=== PATIENT | male | born 1955 | race Caucasian/White ===

== ENCOUNTER → 2016-11-24 | Day surgery (SDC) | payer OTHER, BC ==
[2016-11-15 13:18] VITALS: Ht 175.3 cm; Wt 79.5 kg
[~2016-11-24] VITALS: Ht 175.3 cm; Wt 79.5 kg
[~2016-11-24] MED LIST: ACETTAB19 PO; AMIT75TA2 PO; AMLO-110 PO; AMT24 PO; ASPI-391 PO; ASPI15TA PO; ATEN-173 PO; ATOR-24 PO; ATOR-26 PO; ATRIN NAE; AZEL0.056 NAE; BACL10TA PO; BACL1TAB PO; BNT10 PO; BUTA1TAB70 PO; CALC625T PO; CLC100X PO; CLOB1OIN2 TOP; DICY10CA12 PO; DIPH38TA PO; FLM4 PO; FLNIN NAE; GABA-113 PO; GABA1CAP4 PO; GABA1CAP5 PO; HYDR10TA52 PO; HYDR20TA3 PO; HYDR5TAB57 PO; LEVO75TA5 PO; LIDOCAINE HCL 2% 2 ML VIAL (20MG/ML) ONE; MENT5PAD4 EXT; MOME6000 NAE; MORP1TAB12 PO; MULT-845 PO; MULTTAB PO; NALO1TAB2 PO; NF34 TOP; OMEP40CA PO; OMEP40CA41 PO; OXYC-106 PO; PANT40TA PO; PLV75 PO; POLY1POW2 PO; POLY335040 PO; PROM25TA PO; PROM25TA16 PO; PROPOFOL IV EMULSION 10 MG/ML 20 ML VIAL IV ONE; SALI0.6510 NAE; SENN-61 PO; SIME80CH PO; SODIUM CHLORIDE 0.9% 500ML 500 ML IV ONE; TAMS0.4C38 PO; TEST0.05 TOP; TEST5GEL TOP; TIZA4CAP PO; ZNF/4 PO; [UNRECOGNIZED DRUG - CODE] TOP
[2016-11-24 11:01] VITALS: TEMP 36.6
--- NOTE | 2016-11-24 11:03 | Endo History and Physical ---
History & Physical Date of Service: Nov 24, 2016. Chief Complaint: ABD Cramping Diarrhea, Colon Ulcers Referring Physician: Dr Rain History of Present Illness 61 yo CM who presents for Colonoscopy secondary to abdominal cramping, diarrhea and history of colon ulcers. Past Medical History Arthritis, Gastrointestinal Disorder, Reflux, High Cholesterol, Hypertension, Chronic Steroid Use, CVA/TIA Past Surgical History Hx Cardiac Surgery: No Hx Internal Defibrillator: No Hx Pacemaker: No Hx Abdominal Surgery: No Hx Post-Op Nausea and Vomiting: Yes (ONLY WITH CERVICAL SURGERY) Hx Cancer Surgery: No Hx Thoracic Surgery: No Hx Orthopedic: Yes (C3-C4 ACDF (LIMITED ROM), RIGHT ACHILLES TENDON X3) Hx Urinary Tract Surgery: No Family History Polyp Social History Smoking Status: Never Smoker Hx Substance Use: No Hx Alcohol Use: No Allergies Coded Allergies: No Known Allergies (Unverified , 11/24/16) Current Medications Reported Home Medications Medications Dose Route/Sig Max Daily Dose Days Date Category Excedrin Back & Body (Acetaminophen-Aspirin Buffered) 1 Tab Tab 2 Tab PO BID 08/17/16 Reported Neurontin (Gabapentin) 300 Mg Cap 300 Mg PO BID 06/17/16 Reported Norvasc (Amlodipine Besylate) 5 Mg Tab 5 Mg PO QAM 06/17/16 Reported Lipitor (Atorvastatin Calcium) 40 Mg Tab 40 Mg PO HS 06/07/16 Reported Percocet 10MG/325MG (Oxycodone/Acetaminophen) Tab 1 Tab PO Q6 PRN 03/14/16 Reported Elavil (Amitriptyline Hcl) 75 Mg Tab 75 Mg PO HS 03/02/16 Reported Levothyroxine Sodium 75 Mcg Tab 75 Mcg PO QAM 02/21/16 Reported Androgel Pump (Testosterone) 1.62 % Gel 40.5 Mg TOP DAILY 02/21/16 Reported Prilosec (Omeprazole) 40 Mg Capcr 40 Mg PO BID 09/01/15 Reported Mvi With Minerals (Multivitamins/Minerals) Tab 1 Tab PO DAILY 04/11/15 Reported Fibercon (Calcium Polycarbophil) 625 Mg Tab 2 Cap PO DAILY 04/11/15 Reported Excedrin Pm (Diphenhydramine-Acetaminophen) 1 Tab Tab 2 Tabs PO HS 04/11/15 Reported Dicyclomine HCl 10 Mg Cap 1 Tab PO TID PRN 08/02/14 Reported Phenergan (Promethazine HCl) 25 Mg Tab 25 Mg PO Q6H PRN 06/15/14 Reported Cortef (Hydrocortisone) 10 Mg Tab 10 Mg PO QAM 06/15/14 Reported Azelastine HCl 0.15 % Spr 2 Sprays DENNIS TID PRN 06/15/14 Reported Flonase Nasal [place] (Fluticasone Propionate) 120 Sprays/6000 Mcg Inha 2 Sprays DENNIS DAILY 08/05/13 Reported Miralax Powder Packet (Polyethylene) 17 Gm Pack 17 Gm PO PRN 08/05/13 Reported Morphine Sulfate Er (Morphine Sulfate) 30 Mg Tab 30 Mg PO BID 08/05/13 Reported Tenormin (Atenolol) 25 Mg Tab 25 Mg PO BID 07/24/10 Reported Zanaflex (Tizanidine HCl) 4 Mg Cap 8 Mg PO TID 07/24/10 Reported Vital Signs Weight (Kilograms): 79.55 Height (Feet): 5 Height (Inches): 9 Physical Exam General Appearance: WD/WN, no apparent distress Respiratory/Chest: Auscultation: breath sounds normal Cardiovascular: Heart Auscultation: RRR Abdomen: Bowel Sounds: normal Inspection & Palpation: soft, non-distended, no tenderness, guarding & rebound Assessment and Plan Assessment: 61 yo CM who presents for Colonoscopy secondary to abdominal cramping, diarrhea and history of colon ulcers. Plan: Proceed with colonoscopy.
--- NOTE | 2016-11-24 11:57 | GI REPORT ---
Procedure Date: 11/24/2016 11:05 AM Procedure: Colonoscopy Indications: Generalized abdominal pain, Chronic diarrhea Medicines: Monitored Anesthesia Care Complications: No immediate complications. Estimated Blood Loss: Estimated blood loss: none. Procedure: Pre-Anesthesia Assessment: - Prior to the procedure, a History and Physical was performed, and patient medications and allergies were reviewed. The patient's tolerance of previous anesthesia was also reviewed. The risks and benefits of the procedure and the sedation options and risks were discussed with the patient. All questions were answered, and informed consent was obtained. Prior Anticoagulants: The patient has taken aspirin, last dose was day of procedure. ASA Grade Assessment: IV - A patient with severe systemic disease that is a constant threat to life. After reviewing the risks and benefits, the patient was deemed in satisfactory condition to undergo the procedure. After I obtained informed consent, the scope was passed under direct vision. Throughout the procedure, the patient's blood pressure, pulse, and oxygen saturations were monitored continuously. The scope was introduced through the anus and advanced to the terminal ileum. The patient tolerated the procedure well. The quality of the bowel preparation was fair. The terminal ileum, ileocecal valve, appendiceal orifice, and rectum were photographed. The colonoscopy was performed with moderate difficulty due to significant looping. Successful completion of the procedure was aided by changing the patient to a supine position and using manual pressure. Findings: A tattoo was seen at the hepatic flexure. The tattoo site appeared normal. Several biopsies were obtained with cold forceps for histology in a targeted manner in the sigmoid colon and in the descending colon. Non-bleeding internal hemorrhoids were found during retroflexion. The hemorrhoids were small. Impression: - A tattoo was seen at the hepatic flexure. The tattoo site appeared normal. - Non-bleeding internal hemorrhoids. - Several biopsies were obtained in the sigmoid colon and in the descending colon. Recommendation: - Resume previous diet. - Continue present medications. - Repeat colonoscopy for surveillance based on pathology results. - Return to primary care physician as previously scheduled. Chaitanya Dahl DO 11/24/2016 11:57:16 AM This report has been signed electronically. Note Initiated On: 11/24/2016 11:05 AM I attest to the content of the Intraoperative Record and orders documented therein, exceptions below
--- NOTE | 2016-11-24 11:58 | Discharge Instructions ---
Endoscopy Patient Instructions Date / Procedure(s) Performed Nov 24, 2016. Colonoscopy Allergy Information Coded Allergies: No Known Allergies (Unverified , 11/24/16) Discharge Date / Findings Nov 24, 2016. Internal hemorrhoids Random colon biopsies Medication Instructions OK to resume all medications today as prescribed Reported Home Medications Medications Dose Route/Sig Max Daily Dose Days Date Category Excedrin Back & Body (Acetaminophen-Aspirin Buffered) 1 Tab Tab 2 Tab PO BID 08/17/16 Reported Neurontin (Gabapentin) 300 Mg Cap 300 Mg PO BID 06/17/16 Reported Norvasc (Amlodipine Besylate) 5 Mg Tab 5 Mg PO QAM 06/17/16 Reported Lipitor (Atorvastatin Calcium) 40 Mg Tab 40 Mg PO HS 06/07/16 Reported Percocet 10MG/325MG (Oxycodone/Acetaminophen) Tab 1 Tab PO Q6 PRN 03/14/16 Reported Elavil (Amitriptyline Hcl) 75 Mg Tab 75 Mg PO HS 03/02/16 Reported Levothyroxine Sodium 75 Mcg Tab 75 Mcg PO QAM 02/21/16 Reported Androgel Pump (Testosterone) 1.62 % Gel 40.5 Mg TOP DAILY 02/21/16 Reported Prilosec (Omeprazole) 40 Mg Capcr 40 Mg PO BID 09/01/15 Reported Mvi With Minerals (Multivitamins/Minerals) Tab 1 Tab PO DAILY 04/11/15 Reported Fibercon (Calcium Polycarbophil) 625 Mg Tab 2 Cap PO DAILY 04/11/15 Reported Excedrin Pm (Diphenhydramine-Acetaminophen) 1 Tab Tab 2 Tabs PO HS 04/11/15 Reported Dicyclomine HCl 10 Mg Cap 1 Tab PO TID PRN 08/02/14 Reported Phenergan (Promethazine HCl) 25 Mg Tab 25 Mg PO Q6H PRN 06/15/14 Reported Cortef (Hydrocortisone) 10 Mg Tab 10 Mg PO QAM 06/15/14 Reported Azelastine HCl 0.15 % Spr 2 Sprays DENNIS TID PRN 06/15/14 Reported Flonase Nasal [place] (Fluticasone Propionate) 120 Sprays/6000 Mcg Inha 2 Sprays DENNIS DAILY 08/05/13 Reported Miralax Powder Packet (Polyethylene) 17 Gm Pack 17 Gm PO PRN 08/05/13 Reported Morphine Sulfate Er (Morphine Sulfate) 30 Mg Tab 30 Mg PO BID 08/05/13 Reported Tenormin (Atenolol) 25 Mg Tab 25 Mg PO BID 07/24/10 Reported Zanaflex (Tizanidine HCl) 4 Mg Cap 8 Mg PO TID 07/24/10 Reported Provider Instructions Activity Restrictions - No exercising or heavy lifting for 24 hours. - Do not drink alcohol the day of the procedure. - Do not drive a car or operate machinery until the day after the procedure. - Do not make any important decisions or sign important papers in 24 hours after the procedure. Following Day: - Return to full activity which may include returning to work/school. Diet Start your diet with liquids and light foods (jello, soup, juice, toast). Then eat your usual diet if not nauseated. Treatment For Common After Affects For mild abdominal pain, bloating, or excessive gas: - Rest - Eat lightly - Lie on right side Follow-Up Information Follow-up with Dr Rain as scheduled Anesthesia Information What You Should Know You have had a procedure that required some medicine to reduce anxiety and discomfort. This treatment is called moderate sedation. After receiving the treatment, you may be sleepy, but you will be able to breathe on your own. The effects of the treatment may last for several hours. Follow these instructions along with Activity/Diet recommendations noted above: * Do NOT do anything where dizziness or clumsiness would be dangerous. * Rest quietly at home today, then you can be up and about tomorrow. * Have a responsible person stay with you the rest of today. * You may have had an I.V. today. If so, you may take the dressing off later today. Recommendations Call your doctor if: * Trouble breathing * Continuous vomiting for more than 24 hours * Temperature above 101 degrees * Severe abdominal pain or bloating * Pain not relieved by pain medicine ordered * There is increased drainage or redness from any incision * A large amount of rectal bleeding greater than 2-3 tablespoons. (If you had a polyp/s removed or have hemorrhoids, a small amount of blood - from the rectum is to be expected.) * You have any unanswered questions or concerns. IN THE EVENT OF A SERIOUS EMERGENCY, GO TO THE NEAREST EMERGENCY ROOM Your discharge instructions were prepared by provider Chaitanya Dahl. Patient Instructions Signature Page Roman Dillard Patient (or Guardian) Signature/Date: I have read and understand the instructions given to me by my caregivers. Caregiver/RN/Doctor Signature/Date: The above-named patient and/or guardian has received patient instructions on this date. + Original Patient Signature Page (only) stays with chart. Please make copy for patient.
[2016-11-24 12:18] VITALS: BP 146/71; PULSE 75; O2SAT 100
--- NOTE | 2016-11-24 14:04 | Anesthesiology Progress Note ---
Anesthesia Post Op Note Date & Time Nov 24, 2016 at 14:05 Vital Signs Pain Intensity: 2 Vital Signs Past 12 Hours Date Time Temp Pulse Resp B/P Pulse Ox O2 Delivery O2 Flow Rate FiO2 11/24/16 12:18 75 20 146/71 100 Room Air 11/24/16 12:03 74 20 137/72 100 Room Air 11/24/16 11:48 79 20 139/72 100 Room Air 11/24/16 11:01 36.6 75 20 155/67 99 Room Air Notes Mental Status: alert / awake / arousable, participated in evaluation Pt Amnestic to Procedure: Yes Nausea / Vomiting: adequately controlled Pain: adequately controlled Airway Patency, RR, SpO2: stable & adequate BP & HR: stable & adequate Hydration State: stable & adequate Anesthetic Complications: no major complications apparent
== END | disposition home or self-care (01) ==
LOC: C.GI 10:20
PROVIDERS: ATTEND Internal Medicine
DX: R10.84 Generalized abdominal pain (principal); R19.7 Diarrhea, unspecified; K21.9 Gastro-esophageal reflux disease without esophagitis; E78.00 Pure hypercholesterolemia, unspecified; M19.90 Unspecified osteoarthritis, unspecified site; K64.9 Unspecified hemorrhoids; I10 Essential (primary) hypertension; Z79.52 Long term (current) use of systemic steroids; Z86.73 Personal history of transient ischemic attack (TIA), and cerebral infarction without residual deficits

== ENCOUNTER 2017-01-19 14:59 | Emergency (ER) | payer OTHER, BC ==
[~2017-01-19] VITALS: Ht 175.3 cm; Wt 81.0 kg
[~2017-01-19 14:59] MED LIST changes: -AMIT75TA2 PO; -AMLO-110 PO; -AMT24 PO; -ASPI-391 PO; -ASPI15TA PO; -ATEN-173 PO; -ATOR-24 PO; -ATOR-26 PO; -ATRIN NAE; -AZEL0.056 NAE; -BACL10TA PO; -BACL1TAB PO; -BUTA1TAB70 PO; -CLC100X PO; -CLOB1OIN2 TOP; -DICY10CA12 PO; -DIPH38TA PO; -FLM4 PO; -GABA1CAP4 PO; -GABA1CAP5 PO; -HYDR10TA52 PO; -HYDR20TA3 PO; -HYDR5TAB57 PO; -LEVO75TA5 PO; -LIDOCAINE HCL 2% 2 ML VIAL (20MG/ML) ONE; -MENT5PAD4 EXT; -MOME6000 NAE; -MORP1TAB12 PO; -MULT-845 PO; -MULTTAB PO; -NALO1TAB2 PO; -NF34 TOP; -OMEP40CA41 PO; -OXYC-106 PO; -PANT40TA PO; -PLV75 PO; -POLY1POW2 PO; -PROM25TA16 PO; -PROPOFOL IV EMULSION 10 MG/ML 20 ML VIAL IV ONE; -SALI0.6510 NAE; -SENN-61 PO; -SIME80CH PO; -SODIUM CHLORIDE 0.9% 500ML 500 ML IV ONE; -TAMS0.4C38 PO; -TEST0.05 TOP; -TEST5GEL TOP; -ZNF/4 PO; -[UNRECOGNIZED DRUG - CODE] TOP
[2017-01-19 15:02] VITALS: TEMP 36.6; Ht 175.3 cm; Wt 81.0 kg
[2017-01-19] MEDS ORDERED: SODIUM CHLORIDE 0.9% 1000ML 1,000 ML IV STA (15:12)
[2017-01-19] MEDS ORDERED: MILK AND MOLASSES ENEMA PR STA (15:25)
[2017-01-19] MEDS ORDERED: DOCUSATE SODIUM 100 MG/10 ML UDC PR ONE (15:45)
[2017-01-19 16:01] LABS: BASO % 0.4 %; BASO ABS # 0.03 K/uL (0-0.2); COMPLETE YES; HEMATOCRIT 47.5 % (42-52); IG% 0.4 %; LYMPH % 23.1 %; LYMPH ABS # 1.97 K/uL (1.2-3.4); MEAN CELL VOLUME 86.5 fL (80-100); MEAN CORPUSCULAR HEMOGLOBIN 30.1 pg (25-34); MEAN CORPUSCULAR HGB CONC 34.7 g/dl (32-36); MEAN PLATELET VOLUME 9.2 fL (7.4-10.4); MONO % 5.3 %; NEUT % 68.8 %; PLATELET COUNT 263 K/uL (130-400); RED BLOOD COUNT 5.49 M/uL (4.7-6.1); WHITE BLOOD COUNT 8.54 K/uL (4.8-10.8)
[2017-01-19 16:18] LABS: ALT/SGPT 22 U/L (12-78); BLOOD UREA NITROGEN 24 mg/dl (7-18); BUN/CREATININE RATIO 24.7 (10-20); CALCIUM 9.3 mg/dl (8.5-10.1); CARBON DIOXIDE 28 mmol/L (21-32); CHLORIDE 105 mmol/L (98-107); CREATININE 0.95 mg/dl (0.60-1.40); GLUCOSE 82 mg/dl (70-99); POTASSIUM 3.5 mmol/L (3.5-5.1); SODIUM 142 mmol/L (136-145)
[2017-01-19 16:29] LABS: ALKALINE PHOSPHATASE 188 U/L (45-117); AST/SGOT 21 U/L (15-37)
[2017-01-19] MEDS ORDERED: TEST5GEL TOP (17:32)
[2017-01-19 17:45] LABS: URINE APPEARANCE CLEAR (CLEAR); URINE BILIRUBIN NEG (NEG); URINE COLOR YELLOW; URINE EPITHELIAL CELL AUTO 0-5 /lpf (0-5); URINE NITRITE NEG (NEG); URINE PH 6.5 (4.5-7.5); URINE SPECIFIC GRAVITY 1.019 (1.000-1.030); UROBILINOGEN NEG (NEG); ZZURINE CULT IF INDIC CATH NO
[2017-01-19 17:49] LABS: MANUAL MICROSCOPIC REQUIRED? NO; REVIEW REQ? NO
[2017-01-19] MEDS ORDERED: LIDOCAINE HCL 2% JELLY 30 ML TUBE EXT ONE (18:31)
[2017-01-19 19:30] VITALS: BP 161/63; PULSE 99; O2SAT 97
--- NOTE | 2017-01-20 00:55 | EMERGENCY ROOM VISIT NOTE ---
History Report prepared by Rosalba: Mary Singletary Under the Supervision of: Dr. Johnathan Reina M.D. First contact with patient: 15:07 Chief Complaint: CONSTIPATION Stated Complaint: SEVERE CONSTIPATION AND UNABLE TO PEE DUE TO BLOCK History of Present Illness The patient is a 61 year old male who presents to the Emergency Room with complaints of worsening constipation over the past few weeks. The patient states that he has chronic pain in his neck and shoulders and takes Morphine Sulfate twice a day as well as Percocet. For the past few years since he has been taking narcotics regularly, he has had issues with constipation. He was initially on MiraLAX and FiberCon, but was taken off of it because he was having abdominal cramping and diarrhea. He was then put on Dicyclomine three times a day and Movantik. His insurance did not approve Movantik until yesterday so he has not taken any of it. Over the past few weeks, he has had increased difficulty having bowel movements. He does note that he had a small bowel movement yesterday, but still feels backed up. He took MiraLAX earlier today without relief. Over the past few hours, he has been unable to urinate. Due to his straining, he notes increased pain in his neck and shoulders, which he rates an 8/10 in severity. He had a colonoscopy in November which revealed hemorrhoids but was not concerning otherwise. He has never used a suppository or enema. He has not had any recent abdominal imaging. Pt denies LOC, headache, fevers, chills, diaphoresis, visual changes, chest pain, breathing difficulties , nausea, vomiting, abdominal pain, back pain, melena, hematochezia, numbness, weakness, lymphadenopathy, rash, or other complaints. Source of History: patient Onset: a few weeks ago Position: other (GI) Quality: other (constipation) Timing: worsening Associated Symptoms: + neck pain, + urinary symptoms (retention) Note: Other symptoms: shoulder pain Review of Systems See HPI for pertinent positives and negatives. A total of ten systems were reviewed and were otherwise negative. Past Medical & Surgical Medical Problems: (1) Benign hypertension (2) Deviated nasal septum (3) Hyperlipidemia (4) IBS (5) Tonsillectomy Family History Patient reports no known family medical history. Social History Smoking Status: Never Smoker Alcohol Use: none Housing Status: lives alone Occupation Status: retired Current/Historical Medications Scheduled Acetaminophen-Aspirin Buffered (Excedrin Back & Body), 2 TAB PO BID Amitriptyline Hcl (Elavil), 75 MG PO HS Amlodipine (Norvasc), 5 MG PO QAM Atenolol (Tenormin), 25 MG PO BID Atorvastatin (Lipitor), 40 MG PO HS Clobetasol Propionate (Clobetasol Propionate), 1 APPLN TOP BID Dicyclomine HCl (Dicyclomine HCl), 1 TAB PO TID Diphenhydramine-Acetaminophen (Excedrin Pm), 2 TABS PO HS Gabapentin (Gabapentin), 300 MG PO TID Hydrocortisone (Cortef), 10 MG PO QAM Levothyroxine Sodium (Levothyroxine Sodium), 75 MCG PO QAM Menthol (Topical Analgesic) (Icy Hot Back Patch), 1 PATCH TOP PRN UD Mometasone Furoate (Nasal) (Mometasone Furoate), 2 SPRAYS DENNIS BID Morphine Sulfate (Morphine Sulfate Er), 30 MG PO BID Multivitamins/Minerals (Mvi With Minerals), 1 TAB PO DAILY Omeprazole (Prilosec), 40 MG PO BID Testosterone (Androgel Pump), 40.5 MG TOP DAILY Tizanidine (Tizanidine HCl), 8 MG PO TID Scheduled PRN Azelastine HCl (Azelastine HCl), 2 SPRAYS DENNIS TID PRN for Nasal Congestion Oxycodone/Acetaminophen 10MG/325MG (Percocet 10MG/325MG), 1 TAB PO Q6 PRN for Pain Promethazine HCl (Promethazine HCl), 25 MG PO Q6 PRN for Nausea Allergies Coded Allergies: No Known Allergies (Unverified , 11/24/16) Physical Exam Vital Signs Date Time Temp Pulse Resp B/P Pulse Ox O2 Delivery O2 Flow Rate FiO2 01/19/17 19:30 99 20 161/63 97 01/19/17 19:00 99 20 161/63 97 Room Air 01/19/17 18:00 101 20 142/95 98 Room Air 01/19/17 15:02 36.6 106 20 165/75 98 Room Air Physical Exam GENERAL: Awake, alert, well-appearing, in no distress HENT: Normocephalic, atraumatic. Oropharynx unremarkable. EYES: Normal conjunctiva. Sclera non-icteric. NECK: Supple. No nuchal rigidity. FROM. No JVD. RESPIRATORY: Clear to auscultation. CARDIAC: Regular rate, normal rhythm. Extremities warm and well perfused. Pulses equal. ABDOMEN: Soft, mildly distended. No tenderness to palpation. No rebound or guarding. No masses. RECTAL: Deferred. MUSCULOSKELETAL: Chest examination reveals no tenderness. The back is symmetrical on inspection without obvious abnormality. There is no CVA tenderness to palpation. No joint edema. LOWER EXTREMITIES: Calves are equal size bilaterally and non-tender. No edema. No discoloration. NEURO: Normal sensorium. No sensory or motor deficits noted. SKIN: No rash or jaundice noted. Medical Decision & Procedures Laboratory Results 01/19/17 15:50 Red Blood Count 5.49, Mean Corpuscular Volume 86.5, Mean Corpuscular Hemoglobin 30.1, Mean Corpuscular Hemoglobin Concent 34.7, Mean Platelet Volume 9.2, Neutrophils (%) (Auto) 68.8, Lymphocytes (%) (Auto) 23.1, Monocytes (%) (Auto) 5.3, Eosinophils (%) (Auto) 2.0, Basophils (%) (Auto) 0.4, Neutrophils # (Auto) 5.89, Lymphocytes # (Auto) 1.97, Monocytes # (Auto) 0.45, Eosinophils # (Auto) 0.17, Basophils # (Auto) 0.03 01/19/17 15:50 Test 01/19/17 15:50 01/19/17 17:25 White Blood Count 8.54 K/uL (4.8-10.8) Red Blood Count 5.49 M/uL (4.7-6.1) Hemoglobin 16.5 g/dL (14.0-18.0) Hematocrit 47.5 % (42-52) Mean Corpuscular Volume 86.5 fL (80-100) Mean Corpuscular Hemoglobin 30.1 pg (25-34) Mean Corpuscular Hemoglobin Concent 34.7 g/dl (32-36) Platelet Count 263 K/uL (130-400) Mean Platelet Volume 9.2 fL (7.4-10.4) Neutrophils (%) (Auto) 68.8 % Lymphocytes (%) (Auto) 23.1 % Monocytes (%) (Auto) 5.3 % Eosinophils (%) (Auto) 2.0 % Basophils (%) (Auto) 0.4 % Neutrophils # (Auto) 5.89 K/uL (1.4-6.5) Lymphocytes # (Auto) 1.97 K/uL (1.2-3.4) Monocytes # (Auto) 0.45 K/uL (0.11-0.59) Eosinophils # (Auto) 0.17 K/uL (0-0.5) Basophils # (Auto) 0.03 K/uL (0-0.2) RDW Standard Deviation 39.9 fL (36.4-46.3) RDW Coefficient of Variation 12.5 % (11.5-14.5) Immature Granulocyte % (Auto) 0.4 % Immature Granulocyte # (Auto) 0.03 K/uL (0.00-0.02) Anion Gap 9.0 mmol/L (3-11) Est Creatinine Clear Calc Drug Dose 81.7 ml/min Estimated GFR () 99.7 Estimated GFR (Non- 86.1 BUN/Creatinine Ratio 24.7 (10-20) Calcium Level 9.3 mg/dl (8.5-10.1) Total Bilirubin 0.3 mg/dl (0.2-1) Direct Bilirubin < 0.1 mg/dl (0-0.2) Aspartate Amino Transf (AST/SGOT) 21 U/L (15-37) Alanine Aminotransferase (ALT/SGPT) 22 U/L (12-78) Alkaline Phosphatase 188 U/L (45-117) Total Protein 7.9 gm/dl (6.4-8.2) Albumin 4.5 gm/dl (3.4-5.0) Lipase 98 U/L (73-393) Thyroid Stimulating Hormone (TSH) 2.640 uIu/ml (0.300-4.500) Urine Color YELLOW Urine Appearance CLEAR (CLEAR) Urine pH 6.5 (4.5-7.5) Urine Specific [place] 1.019 (1.000-1.030) Urine Protein NEG (NEG) Urine Glucose (UA) NEG (NEG) Urine Ketones NEG (NEG) Urine Occult Blood TRACE (NEG) Urine Nitrite NEG (NEG) Urine Bilirubin NEG (NEG) Urine Urobilinogen NEG (NEG) Urine Leukocyte Esterase NEG (NEG) Urine WBC (Auto) 1-5 /hpf (0-5) Urine RBC (Auto) 5-10 /hpf (0-4) Urine Hyaline Casts (Auto) 0 /lpf (0-5) Urine Epithelial Cells (Auto) 0-5 /lpf (0-5) Urine Bacteria (Auto) NEG (NEG) Laboratory results reviewed by me Medications Administered Medications (Trade) Dose Ordered Sig/Bruce Route Start Time Stop Time Status Last Admin Dose Admin Sodium Chloride (Nss 1000ml) 1,000 ml @ 999 mls/hr Q1H1M STAT IV 01/19/17 15:12 01/19/17 16:12 DC 01/19/17 16:00 999 MLS/HR Miscellaneous Medication (Milk And Molasses Enema) 1 ea NOW STAT GA 01/19/17 15:25 01/19/17 15:26 DC 01/19/17 16:49 1 EA Docusate Sodium (coLACE SYRUP) 100 mg 1545 ONCE GA 01/19/17 15:45 01/19/17 15:46 DC 01/19/17 16:49 100 MG Procedure Disimpaction: The patient had a significant amount of hard stool noted in the rectum. It was removed in standard fashion. There were no complications. There was no bleeding. ED Course 1509: The patient was evaluated in room C6. A complete history and physical exam was performed. 151: Ordered NSS 1000 ml @ 999 mls/hr IV. 1525: Ordered Milk and Molasses Enema 1 ea GA. 1545: Ordered Docusate Sodium 100 mg GA. 1720: I reassessed the patient. He had 500 cc on his bladder scan and has an urge to urinate, but is unable to. He will have a straight cath. 1819: I reassessed the patient and disimpacted him. See procedure note above. 1922: I reevaluated the patient. He had a large bowel movement and was feeling much better. Discussed results and discharge instructions: He verbalized understanding and agreement. The patient is ready for discharge. Medical Decision Prior records/ancillary studies reviewed. Triage Nursing notes reviewed and agree them. The patient's history was concerning for constipation. Differential diagnosis: Etiologies such as functional constipation, impaction, obstruction, volvulus, metabolic abnormality, infection, neurologic, as well as others were entertained. Physical examination findings: As above. ER treatment provided: Normal saline hydration Enema Disimpaction The patient then had a large bowel movement and symptoms resolved. On reassessment the patient felt better. Diagnostics interpreted by me: The labs revealed an unremarkable CBC and chemistry panel. By the evaluation outlined above emergent etiologies such as obstruction, volvulus, metabolic abnormality, infection , neurologic, as well as others were deemed relatively unlikely. The patient was informed about the findings as listed above. All questions were answered and he was pleased with the treatment. Return instructions were outlined and the patient was discharged in stable condition. Outpatient prescription management: No change Referral: The patient was referred back to their primary care physician for follow-up in 2 to 3 days for a recheck of the current condition. The chart was completed utilizing [employer] Speech voice recognition software. Grammatical errors, random word insertions, pronoun errors, and incomplete sentences are an occasional consequence of this system due to software limitations, ambient noise, and hardware issues. Any formal questions or concerns about the content, text, or information contained within the body of this dictation should be directly addressed to the physician for clarification. Impression Primary Impression: Drug-induced constipation Scribe Attestation The scribe's documentation has been prepared under my direction and personally reviewed by me in its entirety. I confirm that the note above accurately reflects all work, treatment, procedures, and medical decision making performed by me. Departure Information Dispostion Home / Self-Care Referrals No Doctor, Assigned (PCP) Johnathan Rain III, M.D. Patient Instructions My [facility] Additional Instructions Rest and drink plenty of fluids. Increase fiber in your diet. Return to the ER for worsening abdominal pain, vomiting, fevers, bloody stools, or as needed. Follow-up with your primary care physician in 2 to 3 days for a recheck of your current condition.
[2017-03-03] MEDS ORDERED: TEST0.05 TOP (07:34)
[2017-04-16] MEDS ORDERED: AMT24 PO (07:34)
[2017-04-16] MEDS ORDERED: NALO1TAB2 PO (07:34)
[2017-04-16] MEDS ORDERED: ATEN-173 PO (08:14)
[2017-04-16] MEDS ORDERED: AZEL0.056 NAE (09:09)
[2017-04-16] MEDS ORDERED: HYDR10TA52 PO (09:09)
[2017-04-16] MEDS ORDERED: AMIT75TA2 PO (09:30)
[2017-04-16] MEDS ORDERED: AMLO-110 PO (10:33)
[2017-04-16] MEDS ORDERED: ATOR-24 PO (11:14)
[2017-04-16] MEDS ORDERED: MULTTAB PO (15:52)
[2017-04-16] MEDS ORDERED: DIPH38TA PO (15:52)
[2017-04-16] MEDS ORDERED: PROM25TA16 PO (16:23)
[2017-04-16] MEDS ORDERED: [UNRECOGNIZED DRUG - CODE] TOP (16:23)
[2017-04-16] MEDS ORDERED: GABA1CAP4 PO (16:23)
[2017-04-16] MEDS ORDERED: MOME6000 NAE (16:23)
[2017-04-16] MEDS ORDERED: NF34 TOP (16:23)
[2017-04-16] MEDS ORDERED: OMEP40CA41 PO (16:23)
[2017-04-16] MEDS ORDERED: ZNF/4 PO (16:23)
[2017-04-16] MEDS ORDERED: ASPI15TA PO (17:24)
[2017-04-16] MEDS ORDERED: LEVO75TA5 PO (17:36)
[2017-04-16] MEDS ORDERED: OXYC-106 PO (19:02)
[2017-05-17] MEDS ORDERED: BACL10TA PO (15:32)
[2017-06-10] MEDS ORDERED: GABA1CAP5 PO (08:15)
[2017-06-29] MEDS ORDERED: PLV75 PO (12:38)
[2017-06-29] MEDS ORDERED: PANT40TA PO (13:01)
[2017-08-11] MEDS ORDERED: CLOP1TAB15 PO (10:46)
[2017-08-11] MEDS ORDERED: PANT40TA PO (10:46)
[2017-08-26] MEDS ORDERED: PRED20TA PO (07:30)
[2017-08-26] MEDS ORDERED: AZIT500T3 PO (07:30)
[2017-08-30] MEDS ORDERED: PRT40 PO (16:02)
== END 2017-01-19 19:40 | disposition home or self-care (01) ==
LOC: C.EDB 15:02 → C.EDC 19:40
DX: K59.03 Drug induced constipation (principal); G89.29 Other chronic pain; M54.2 Cervicalgia; M25.519 Pain in unspecified shoulder; I10 Essential (primary) hypertension; K58.9 Irritable bowel syndrome, unspecified; E78.5 Hyperlipidemia, unspecified; Z79.899 Other long term (current) drug therapy

== ENCOUNTER → 2017-03-09 | Day surgery (SDC) | payer OTHER, BC ==
[2017-03-03 07:37] VITALS: BMI 25.0
[~2017-03-09] VITALS: Ht 175.3 cm; Wt 79.5 kg
[~2017-03-09] MED LIST changes: +ALBU18002 INH; +AMIT75TA2 PO; +AMLO-110 PO; +AMT24 PO; +ASPI-391 PO; +ASPI15TA PO; +ATEN-173 PO; +ATOR-24 PO; +ATOR-26 PO; +ATRIN NAE; +AZEL0.056 NAE; +AZIT500T3 PO; +BACL10TA PO; +BACL1TAB PO; +BENZ100C84 PO; +BUTA1TAB70 PO; -CALC625T PO; +CLC100X PO; +CLOB1OIN2 TOP; +CLOP1TAB15 PO; +DICY10CA12 PO; +DIPH38TA PO; +FLM4 PO; -FLNIN NAE; -GABA-113 PO; +GABA1CAP4 PO; +GABA1CAP5 PO; +HYDR10TA52 PO; +HYDR20TA3 PO; +HYDR5TAB57 PO; +LEVO75TA5 PO; +LIDOCAINE HCL 2% 2 ML VIAL (20MG/ML) ONE; +MENT5PAD4 EXT; +MIDAZOLAM HCL 1 MG/ML 2ML VIAL ONE; +MOME6000 NAE; +MORP1TAB12 PO; +MULT-845 PO; +MULTTAB PO; +NALO1TAB2 PO; +NF34 TOP; -OMEP40CA PO; +OMEP40CA41 PO; +ONDANSETRON INJ 2 MG/ML 2 ML VIAL ONE; +OXYC-106 PO; +PANT40TA PO; +PLV75 PO; +POLY1POW2 PO; -POLY335040 PO; +PRED20TA PO; -PROM25TA PO; +PROM25TA16 PO; +PROPOFOL IV EMULSION 10 MG/ML 20 ML VIAL IV ONE; +PRT40 PO; +SALI0.6510 NAE; +SENN-61 PO; +SIME80CH PO; +SUCR1TAB29 PO; +TAMS0.4C38 PO; +TEST0.05 TOP; +TEST5GEL TOP; +ZNF/4 PO; +[UNRECOGNIZED DRUG - CODE] TOP
[2017-03-09 11:58] VITALS: Ht 175.3 cm; Wt 79.5 kg
--- NOTE | 2017-03-09 12:52 | GI REPORT ---
Procedure Date: 03/09/2017 12:35 PM Procedure: Upper GI endoscopy Indications: Epigastric abdominal pain, Indigestion Medicines: Monitored Anesthesia Care Complications: No immediate complications. Estimated Blood Loss: Estimated blood loss: none. Procedure: Pre-Anesthesia Assessment: - Prior to the procedure, a History and Physical was performed, and patient medications and allergies were reviewed. The patient's tolerance of previous anesthesia was also reviewed. The risks and benefits of the procedure and the sedation options and risks were discussed with the patient. All questions were answered, and informed consent was obtained. Prior Anticoagulants: The patient has taken aspirin, last dose was 7 days prior to procedure. ASA Grade Assessment: II - A patient with mild systemic disease. After reviewing the risks and benefits, the patient was deemed in satisfactory condition to undergo the procedure. After obtaining informed consent, the endoscope was passed under direct vision. Throughout the procedure, the patient's blood pressure, pulse, and oxygen saturations were monitored continuously. The scope was introduced through the mouth, and advanced to the second part of duodenum. The upper GI endoscopy was accomplished without difficulty. The patient tolerated the procedure well. Findings: Questionable candidiasis was found in the upper third of the esophagus. Cells for cytology were obtained by brushing. Localized moderate inflammation characterized by erythema was found in the gastric antrum. Biopsies were taken with a cold forceps for histology. An acquired benign-appearing, intrinsic mild stenosis was found in the first part of the duodenum and was traversed. A TTS dilator was passed through the scope. Dilation with a 15-16.5-18 mm balloon (to a maximum balloon size of 16.5 mm) dilator was performed. The dilation site was examined and showed moderate improvement in luminal narrowing. Impression: - Monilial esophagitis. Cells for cytology obtained. - Gastritis. Biopsied. - Acquired duodenal stenosis. Dilated. Recommendation: - Resume previous diet. - Continue present medications. - Await pathology results. - Return to primary care physician as previously scheduled. Chaitanya Dahl DO 03/09/2017 12:52:09 PM This report has been signed electronically. Note Initiated On: 03/09/2017 12:35 PM I attest to the content of the Intraoperative Record and orders documented therein, exceptions below
--- NOTE | 2017-03-09 12:53 | Discharge Instructions ---
Endoscopy Patient Instructions Date / Procedure(s) Performed March 09, 2017. EGD Allergy Information Coded Allergies: No Known Allergies (Unverified , 03/09/17) Discharge Date / Findings March 09, 2017. Duodenal stenosis s/p dilation Gastritis s/p biopsies Questionable Abby esophagus s/p brushings Medication Instructions Stopped Medication(s): ASA OK to resume all medications today as prescribed Reported Home Medications Medications Dose Route/Sig Max Daily Dose Days Date Category Dose Instructions Androderm (Testosterone) 2 Mg/24 Hr Dis 1 Patch TOP DAILY 03/03/17 Reported Movantik (Naloxegol Oxalate) 25 Mg Tab 1 Tab PO UD PRN 03/03/17 Reported Amitiza (Lubiprostone) 24 Mcg Cap 24 Mcg PO BID 03/03/17 Reported Icy Hot Back Patch (Menthol (Topical Analgesic)) 5 % Pad 1 Patch TOP PRN UD 01/19/17 Reported Gabapentin 300 Mg Cap 300 Mg PO TID 01/19/17 Reported Promethazine HCl 25 Mg Tab 25 Mg PO Q6 PRN 01/19/17 Reported Clobetasol Propionate 0.05 % Oint 1 Appln TOP BID 01/19/17 Reported Tizanidine HCl (Tizanidine) 4 Mg Tab 8 Mg PO TID 01/19/17 Reported Mometasone Furoate (Mometasone Furoate (Nasal)) 50 Mcg/Act Spr 2 Sprays DENNIS BID 01/19/17 Reported Prilosec (Omeprazole) 40 Mg Cap 40 Mg PO BID 01/19/17 Reported Excedrin Back & Body (Acetaminophen-Aspirin Buffered) 1 Tab Tab 2 Tab PO BID 08/17/16 Reported Norvasc (Amlodipine Besylate) 5 Mg Tab 5 Mg PO QAM 06/17/16 Reported ONLY TAKES IN WINTER MONTHS Lipitor (Atorvastatin Calcium) 40 Mg Tab 40 Mg PO HS 06/07/16 Reported Percocet 10MG/325MG (Oxycodone/Acetaminophen) Tab 1 Tab PO Q6 PRN 03/14/16 Reported Elavil (Amitriptyline Hcl) 75 Mg Tab 75 Mg PO HS 03/02/16 Reported Levothyroxine Sodium 75 Mcg Tab 75 Mcg PO QAM 02/21/16 Reported Mvi With Minerals (Multivitamins/Minerals) Tab 1 Tab PO DAILY 04/11/15 Reported Excedrin Pm (Diphenhydramine-Acetaminophen) 1 Tab Tab 2 Tabs PO HS 04/11/15 Reported Dicyclomine HCl 10 Mg Cap 1 Tab PO TID 08/02/14 Reported Cortef (Hydrocortisone) 10 Mg Tab 10 Mg PO QAM 06/15/14 Reported Azelastine HCl 0.15 % Spr 2 Sprays DENNIS TID PRN 06/15/14 Reported Morphine Sulfate Er (Morphine Sulfate) 30 Mg Tab 30 Mg PO BID 08/05/13 Reported Tenormin (Atenolol) 25 Mg Tab 25 Mg PO BID 07/24/10 Reported Provider Instructions Activity Restrictions - No exercising or heavy lifting for 24 hours. - Do not drink alcohol the day of the procedure. - Do not drive a car or operate machinery until the day after the procedure. - Do not make any important decisions or sign important papers in 24 hours after the procedure. Following Day: - Return to full activity which may include returning to work/school. Diet Start your diet with liquids and light foods (jello, soup, juice, toast). Then eat your usual diet if not nauseated. Treatment For Common After Affects For mild abdominal pain, bloating, or excessive gas: - Rest - Eat lightly - Lie on right side Follow-Up Information Follow-up with DR. EPPS as scheduled Anesthesia Information What You Should Know You have had a procedure that required some medicine to reduce anxiety and discomfort. This treatment is called moderate sedation. After receiving the treatment, you may be sleepy, but you will be able to breathe on your own. The effects of the treatment may last for several hours. Follow these instructions along with Activity/Diet recommendations noted above: * Do NOT do anything where dizziness or clumsiness would be dangerous. * Rest quietly at home today, then you can be up and about tomorrow. * Have a responsible person stay with you the rest of today. * You may have had an I.V. today. If so, you may take the dressing off later today. Recommendations Call your doctor if: * Trouble breathing * Continuous vomiting for more than 24 hours * Temperature above 101 degrees * Severe abdominal pain or bloating * Pain not relieved by pain medicine ordered * There is increased drainage or redness from any incision * A large amount of rectal bleeding greater than 2-3 tablespoons. (If you had a polyp/s removed or have hemorrhoids, a small amount of blood - from the rectum is to be expected.) * You have any unanswered questions or concerns. IN THE EVENT OF A SERIOUS EMERGENCY, GO TO THE NEAREST EMERGENCY ROOM Your discharge instructions were prepared by provider Chaitanya Dahl. Patient Instructions Signature Page Roman Dillard Patient (or Guardian) Signature/Date: I have read and understand the instructions given to me by my caregivers. Caregiver/RN/Doctor Signature/Date: The above-named patient and/or guardian has received patient instructions on this date. + Original Patient Signature Page (only) stays with chart. Please make copy for patient.
--- NOTE | 2017-03-09 13:06 | Anesthesiology Progress Note ---
Anesthesia Post Op Note Date & Time March 09, 2017 at 13:06 Vital Signs Pain Intensity: 2 Vital Signs Past 12 Hours Date Time Temp Pulse Resp B/P Pulse Ox O2 Delivery O2 Flow Rate FiO2 03/09/17 13:01 64 20 124/47 100 Room Air 03/09/17 12:05 36.8 90 20 150/78 100 Room Air Notes Mental Status: alert / awake / arousable, participated in evaluation Pt Amnestic to Procedure: Yes Nausea / Vomiting: adequately controlled Pain: adequately controlled Airway Patency, RR, SpO2: stable & adequate BP & HR: stable & adequate Hydration State: stable & adequate Anesthetic Complications: no major complications apparent
[2017-03-09 13:32] VITALS: BP 123/67; PULSE 70; O2SAT 100
--- NOTE | 2017-03-22 12:06 | Endo History and Physical ---
History & Physical Date of Service: Mar 22, 2017. Chief Complaint: DYSPHAGIA/STENOSIS Referring Physician: DR. EPPS History of Present Illness 61 yo CM who presents for EGD secondary to dysphagia. Past Medical History Arthritis, Gastrointestinal Disorder, Reflux, High Cholesterol, Hypertension, Chronic Steroid Use, CVA/TIA Past Surgical History Hx Cardiac Surgery: No Hx Internal Defibrillator: No Hx Pacemaker: No Hx Abdominal Surgery: No Hx Post-Op Nausea and Vomiting: Yes (ONLY WITH CERVICAL SURGERY) Hx Cancer Surgery: No Hx Thoracic Surgery: No Hx Orthopedic: Yes (C3-C4 ACDF (LIMITED ROM), RIGHT ACHILLES TENDON X3) Hx Urinary Tract Surgery: No Family History Polyp Social History Smoking Status: Never Smoker Hx Substance Use: No Hx Alcohol Use: No Allergies Coded Allergies: No Known Allergies (Unverified , 03/09/17) Current Medications Reported Home Medications Medications Dose Route/Sig Max Daily Dose Days Date Category Dose Instructions Androderm (Testosterone) 2 Mg/24 Hr Dis 1 Patch TOP DAILY 03/03/17 Reported Movantik (Naloxegol Oxalate) 25 Mg Tab 1 Tab PO UD PRN 03/03/17 Reported Amitiza (Lubiprostone) 24 Mcg Cap 24 Mcg PO BID 03/03/17 Reported Icy Hot Back Patch (Menthol (Topical Analgesic)) 5 % Pad 1 Patch TOP PRN UD 01/19/17 Reported Gabapentin 300 Mg Cap 300 Mg PO TID 01/19/17 Reported Promethazine HCl 25 Mg Tab 25 Mg PO Q6 PRN 01/19/17 Reported Clobetasol Propionate 0.05 % Oint 1 Appln TOP BID 01/19/17 Reported Tizanidine HCl (Tizanidine) 4 Mg Tab 8 Mg PO TID 01/19/17 Reported Mometasone Furoate (Mometasone Furoate (Nasal)) 50 Mcg/Act Spr 2 Sprays DENNIS BID 01/19/17 Reported Prilosec (Omeprazole) 40 Mg Cap 40 Mg PO BID 01/19/17 Reported Excedrin Back & Body (Acetaminophen-Aspirin Buffered) 1 Tab Tab 2 Tab PO BID 08/17/16 Reported Norvasc (Amlodipine Besylate) 5 Mg Tab 5 Mg PO QAM 06/17/16 Reported ONLY TAKES IN WINTER MONTHS Lipitor (Atorvastatin Calcium) 40 Mg Tab 40 Mg PO HS 06/07/16 Reported Percocet 10MG/325MG (Oxycodone/Acetaminophen) Tab 1 Tab PO Q6 PRN 03/14/16 Reported Elavil (Amitriptyline Hcl) 75 Mg Tab 75 Mg PO HS 03/02/16 Reported Levothyroxine Sodium 75 Mcg Tab 75 Mcg PO QAM 02/21/16 Reported Mvi With Minerals (Multivitamins/Minerals) Tab 1 Tab PO DAILY 04/11/15 Reported Excedrin Pm (Diphenhydramine-Acetaminophen) 1 Tab Tab 2 Tabs PO HS 04/11/15 Reported Dicyclomine HCl 10 Mg Cap 1 Tab PO TID 08/02/14 Reported Cortef (Hydrocortisone) 10 Mg Tab 10 Mg PO QAM 06/15/14 Reported Azelastine HCl 0.15 % Spr 2 Sprays DENNIS TID PRN 06/15/14 Reported Morphine Sulfate Er (Morphine Sulfate) 30 Mg Tab 30 Mg PO BID 08/05/13 Reported Tenormin (Atenolol) 25 Mg Tab 25 Mg PO BID 07/24/10 Reported Vital Signs Weight (Kilograms): 79.55 Height (Feet): 5 Height (Inches): 9 Physical Exam General Appearance: WD/WN, no apparent distress Respiratory/Chest: Auscultation: breath sounds normal Cardiovascular: Heart Auscultation: RRR Abdomen: Bowel Sounds: normal Inspection & Palpation: soft, non-distended, no tenderness, guarding & rebound Assessment and Plan Assessment: 61 yo CM who presents for EGD secondary to dysphagia. Plan: Proceed with EGD.
== END | disposition home or self-care (01) ==
LOC: C.GI 11:14 → EDSTATUS 12:20
PROVIDERS: ATTEND Internal Medicine
DX: K29.70 Gastritis, unspecified, without bleeding (principal); K20.8 Other esophagitis; K31.5 Obstruction of duodenum; I10 Essential (primary) hypertension; K21.9 Gastro-esophageal reflux disease without esophagitis; Z86.73 Personal history of transient ischemic attack (TIA), and cerebral infarction without residual deficits; Z68.25 Body mass index [BMI] 25.0-25.9, adult; Z98.890 Other specified postprocedural states

== ENCOUNTER 2017-04-05 14:59 | Emergency (ER) | payer OTHER, BC ==
[~2017-04-05] VITALS: Ht 175.3 cm; Wt 78.4 kg
[~2017-04-05 14:59] MED LIST changes: -ALBU18002 INH; -AMIT75TA2 PO; -AMLO-110 PO; -AMT24 PO; -ASPI-391 PO; -ASPI15TA PO; -ATEN-173 PO; -ATOR-24 PO; -ATOR-26 PO; -ATRIN NAE; -AZEL0.056 NAE; -AZIT500T3 PO; -BACL10TA PO; -BACL1TAB PO; -BENZ100C84 PO; -BUTA1TAB70 PO; -CLC100X PO; -CLOB1OIN2 TOP; -CLOP1TAB15 PO; -DICY10CA12 PO; -DIPH38TA PO; -FLM4 PO; -GABA1CAP4 PO; -GABA1CAP5 PO; -HYDR10TA52 PO; -HYDR20TA3 PO; -HYDR5TAB57 PO; -LEVO75TA5 PO; -LIDOCAINE HCL 2% 2 ML VIAL (20MG/ML) ONE; -MENT5PAD4 EXT; -MIDAZOLAM HCL 1 MG/ML 2ML VIAL ONE; -MOME6000 NAE; -MORP1TAB12 PO; -MULT-845 PO; -MULTTAB PO; -NALO1TAB2 PO; -NF34 TOP; -OMEP40CA41 PO; -ONDANSETRON INJ 2 MG/ML 2 ML VIAL ONE; -OXYC-106 PO; -PANT40TA PO; -PLV75 PO; -POLY1POW2 PO; -PRED20TA PO; -PROM25TA16 PO; -PROPOFOL IV EMULSION 10 MG/ML 20 ML VIAL IV ONE; -PRT40 PO; -SALI0.6510 NAE; -SENN-61 PO; -SIME80CH PO; -SUCR1TAB29 PO; -TAMS0.4C38 PO; -TEST5GEL TOP; -TIZA4CAP PO; -ZNF/4 PO; -[UNRECOGNIZED DRUG - CODE] TOP
[2017-04-05 15:01] VITALS: Ht 175.3 cm; Wt 78.4 kg
[2017-04-05] MEDS ORDERED: ONDANSETRON INJ 2 MG/ML 2 ML VIAL IV STA (16:32)
[2017-04-05] MEDS ORDERED: HYDROmorphone INJ 0.5 MG/0.5 ML SYR IV STA (16:32)
[2017-04-05] MEDS ORDERED: SODIUM CHLORIDE 0.9% 1000ML 1,000 ML IV STA (16:32)
--- NOTE | 2017-04-05 16:32 | EMERGENCY ROOM VISIT NOTE ---
History First contact with patient: 16:24 Chief Complaint: CONSTIPATION Stated Complaint: CONSTIPATION Nursing Triage Summary: Patient ambulatory to triage with a steady gait, states "I have pretty bad constipation. I am a chronic pain patient. I am on narcotics. Because of that, I have a slow GI system. I see Dr. Dahl and we have tried multiple constipation medications. I have liquid seepage from the medications I have taken today but I can't seem to get the stool passed." Last BM was 2 days ago. Patient denies any nausea or vomiting. Patient reports difficulty with urination as well as some burning when passing urine. History of Present Illness The patient is a 61 year old male who presents to the Emergency Room with complaints of abdominal pain, small amount of fecal discharge, no nausea or vomiting. Started after shortly after waking up today and had pain all over his abdomen. Last BM 2 days ago. Struggling to pass urine, dysuria, small stream. He has chronic constipation secondary to his opiate pain medication and feels heavily constipated currently. 6-8 weeks ago had similar episode requiring straight cath and manual disimpaction. Review of Systems He denies any fevers, chills, cough, chest pain, shortness of breath. See HPI for pertinent positives & negatives. A total of 10 systems reviewed and were otherwise negative. Past Medical/Surgical History Medical Problems: (1) Benign hypertension (2) Deviated nasal septum (3) Hyperlipidemia (4) IBS (5) Tonsillectomy Family History Patient reports no known family medical history. Social History Smoking Status: Never Smoker Alcohol Use: none Housing Status: lives alone Occupation Status: retired Current/Historical Medications Scheduled Amitriptyline Hcl (Elavil), 75 MG PO HS Amlodipine (Norvasc), 5 MG PO QAM Aspirin-Caffeine (Back & Body Extra Strengt), 2 TABS PO BID Atenolol (Tenormin), 25 MG PO BID Atorvastatin (Lipitor), 40 MG PO HS Clobetasol Propionate (Clobetasol Propionate), 1 APPLN TOP BID Dicyclomine HCl (Dicyclomine HCl), 1 TAB PO TID Diphenhydramine-Acetaminophen (Excedrin Pm), 2 TABS PO HS Gabapentin (Gabapentin), 300 MG PO TID Hydrocortisone (Cortef), 10 MG PO QAM Levothyroxine Sodium (Levothyroxine Sodium), 75 MCG PO QAM Lubiprostone (Amitiza), 24 MCG PO BID Menthol (Topical Analgesic) (Icy Hot Back Patch), 1 PATCH TOP PRN UD Mometasone Furoate (Nasal) (Mometasone Furoate), 2 SPRAYS DENNIS BID Morphine Sulfate (Morphine Sulfate Er), 30 MG PO BID Multivitamins/Minerals (Mvi With Minerals), 1 TAB PO DAILY Omeprazole (Prilosec), 40 MG PO BID Tamsulosin Hcl (Flomax), 1 CAP PO DAILY Tizanidine (Tizanidine HCl), 8 MG PO TID Scheduled PRN Azelastine HCl (Azelastine HCl), 2 SPRAYS DENNIS TID PRN for Nasal Congestion Naloxegol Oxalate (Movantik), 12.5 MG PO UD PRN for Constipation Oxycodone/Acetaminophen 10MG/325MG (Percocet 10MG/325MG), 1 TAB PO Q6 PRN for Pain Promethazine HCl (Promethazine HCl), 25 MG PO Q6 PRN for Nausea Allergies Coded Allergies: No Known Allergies (Unverified , 04/05/17) Physical Exam Vital Signs Date Time Temp Pulse Resp B/P (MAP) Pulse Ox O2 Delivery O2 Flow Rate FiO2 04/05/17 20:29 95 18 161/91 97 04/05/17 19:04 103 18 152/77 98 04/05/17 15:01 36.7 99 18 163/83 98 Room Air Physical Exam VITAL SIGNS: were reviewed as above GENERAL: moderate acute distress from abdominal pain SKIN: Warm dry and pink, no rashes HEAD: Normocephalic and atraumatic EYES: extraocular muscles intact, pupils equal and reactive to light OROPHARYNX: moist mucus membranes LUNGS: No respiratory distress, clear to auscultation, no accessory muscle use HEART: Regular rate and rhythm, heart sounds 1+2, no murmurs ABDOMEN: Soft, generalized tenderness abdomen on palpation without guarding or rebound, bowel sounds normal BACK: no CVA tenderness EXTREMITIES: Warm and well perfused, no pedal edema. NEUROLOGICALLY: Awake alert and oriented. No gross extremity motor deficit. There is no facial droop. Speech is clear. Vision is grossly normal. Medical Decision & Procedures ER Provider Diagnostic Interpretation: CHEST AND ABDOMEN 2 VIEWS HISTORY: Generalized abdominal pain ?obstruction COMPARISON: Chest 03/01/2016. FINDINGS: The lungs are clear. The cardiomediastinal silhouette is within normal limits. There is no pneumoperitoneum or pneumatosis. The bowel gas pattern is unremarkable. No evidence for bowel obstruction. No renal or ureteral calculi. Multiple pelvic phleboliths. Cervical spinal fusion hardware. Large amount well-formed stool seen throughout the colon and rectum. IMPRESSION: No acute cardiopulmonary process. No evidence for bowel obstruction. Large amount of well-formed stool seen throughout the colon and rectum. Electronically signed by: Ty Bo M.D. 04/05/2017 5:10 PM Dictated Date/Time: 04/05/2017 5:08 PM Laboratory Results 04/05/17 16:48 Red Blood Count 5.70, Mean Corpuscular Volume 87.0, Mean Corpuscular Hemoglobin 27.7, Mean Corpuscular Hemoglobin Concent 31.9, Mean Platelet Volume 8.5, Neutrophils (%) (Auto) 85.1, Lymphocytes (%) (Auto) 9.8, Monocytes (%) (Auto) 4.4, Eosinophils (%) (Auto) 0.2, Basophils (%) (Auto) 0.2, Neutrophils # (Auto) 11.14, Lymphocytes # (Auto) 1.28, Monocytes # (Auto) 0.57, Eosinophils # (Auto) 0.03, Basophils # (Auto) 0.02 04/05/17 16:48 Test 04/05/17 16:48 04/05/17 18:55 White Blood Count 13.08 K/uL (4.8-10.8) Red Blood Count 5.70 M/uL (4.7-6.1) Hemoglobin 15.8 g/dL (14.0-18.0) Hematocrit 49.6 % (42-52) Mean Corpuscular Volume 87.0 fL (80-100) Mean Corpuscular Hemoglobin 27.7 pg (25-34) Mean Corpuscular Hemoglobin Concent 31.9 g/dl (32-36) Platelet Count 289 K/uL (130-400) Mean Platelet Volume 8.5 fL (7.4-10.4) Neutrophils (%) (Auto) 85.1 % Lymphocytes (%) (Auto) 9.8 % Monocytes (%) (Auto) 4.4 % Eosinophils (%) (Auto) 0.2 % Basophils (%) (Auto) 0.2 % Neutrophils # (Auto) 11.14 K/uL (1.4-6.5) Lymphocytes # (Auto) 1.28 K/uL (1.2-3.4) Monocytes # (Auto) 0.57 K/uL (0.11-0.59) Eosinophils # (Auto) 0.03 K/uL (0-0.5) Basophils # (Auto) 0.02 K/uL (0-0.2) RDW Standard Deviation 41.6 fL (36.4-46.3) RDW Coefficient of Variation 13.2 % (11.5-14.5) Immature Granulocyte % (Auto) 0.3 % Immature Granulocyte # (Auto) 0.04 K/uL (0.00-0.02) Anion Gap 11.0 mmol/L (3-11) Est Creatinine Clear Calc Drug Dose 90.2 ml/min Estimated GFR () 108.5 Estimated GFR (Non- 93.6 BUN/Creatinine Ratio 24.5 (10-20) Calcium Level 9.2 mg/dl (8.5-10.1) Total Bilirubin 0.3 mg/dl (0.2-1) Aspartate Amino Transf (AST/SGOT) 22 U/L (15-37) Alanine Aminotransferase (ALT/SGPT) 24 U/L (12-78) Alkaline Phosphatase 155 U/L (45-117) Total Protein 7.4 gm/dl (6.4-8.2) Albumin 4.2 gm/dl (3.4-5.0) Globulin 3.2 gm/dl (2.5-4.0) Albumin/Globulin Ratio 1.3 (0.9-2) Lipase 117 U/L (73-393) Urine Color DK YELLOW Urine Appearance CLEAR (CLEAR) Urine pH 6.5 (4.5-7.5) Urine Specific Woodruff 1.025 (1.000-1.030) Urine Protein NEG (NEG) Urine Glucose (UA) NEG (NEG) Urine Ketones NEG (NEG) Urine Occult Blood NEG (NEG) Urine Nitrite NEG (NEG) Urine Bilirubin NEG (NEG) Urine Urobilinogen NEG (NEG) Urine Leukocyte Esterase NEG (NEG) Urine WBC (Auto) 0 /hpf (0-5) Urine RBC (Auto) 10-30 /hpf (0-4) Urine Hyaline Casts (Auto) 1-5 /lpf (0-5) Urine Epithelial Cells (Auto) 0-5 /lpf (0-5) Urine Bacteria (Auto) NEG (NEG) Medications Administered Medications (Trade) Dose Ordered Sig/Bruce Route Start Time Stop Time Status Last Admin Dose Admin Sodium Chloride 1,000 ml @ 999 mls/hr Q1H1M STAT IV 04/05/17 16:32 04/05/17 17:32 DC 04/05/17 16:32 999 MLS/HR Hydromorphone HCl (Dilaudid Inj) 0.5 mg NOW STAT IV 04/05/17 16:32 04/05/17 16:36 DC 04/05/17 17:34 0.5 MG Ondansetron HCl (Zofran Inj) 4 mg NOW STAT IV 04/05/17 16:32 04/05/17 16:36 DC 04/05/17 17:34 4 MG Polyethylene (Miralax Powder Packet) 17 gm DAILY STAT PO 04/05/17 17:19 04/05/17 17:25 DC 04/05/17 17:19 17 GM Polyethylene (Miralax Powder Packet) 34 gm ONE STAT PO 04/05/17 18:30 04/05/17 18:32 DC 04/05/17 18:30 34 GM Glycerin (Glycerin Adult Supp) 1 ea NOW ONCE OK 04/05/17 19:30 04/05/17 19:31 DC 04/05/17 19:30 1 EA Bisacodyl (Dulcolax Supp) 10 mg NOW STAT OK 04/05/17 19:17 04/05/17 19:18 DC 04/05/17 19:17 10 MG ED Course 15:30 Complete history and physical performed 16:[address] Martinez 17:15 Reassessed patient following abdominal XR and lab work. Appears much the same. Awaiting bladder scan. 17:35 Bladder scan of 586ml - advised patient to have Chandra catheter insertion but he declined this as he wanted to try a straight cath as this is what he had the previous time. 19:02 Straight cath - 600ml passed. Patient reassessed and pain much improved. 19:55 Manual disimpaction performed with 4ml lidocaine applied to outside of anus for pain relief. Approximately 2 cups of hard stool was removed. 20:40 Patient was reassessed. Suprapubic pain is increasing again. Now accepting Chandra catheter insertion. 21:00 Patient was reassessed following chandra cath insertion. Suprapubic pain improved. Discussed discharge plan with the patient. Medical Decision Triage Nursing notes reviewed. Additional history obtained from patient. The patient's history was concerning for constipation. Differential diagnosis: Etiologies such as functional constipation, impaction, obstruction, volvulus, metabolic abnormality, infection, neurologic, as well as others were entertained. Physical examination findings: As above. No peritoneal findings noted on abdominal examination. ER treatment provided: Zofran 4mg IV Dilaudid 0.5mg IV NSS 1L bolus MiraLAX 17g x3 Bisacodyl 10mg OK, Glycerin 1 ea supp. 4ml of 2% Lidocaine used on outside of anus used for manual disimpaction On reassessment the patient felt better. Diagnostics interpreted by me: The labs revealed elevated WBC but no other sign of infection. Imaging studies: Abdominal series shows no obstruction This appears to be consistent with acute on chronic constipation due to opiate pain medication with urinary retention. By the evaluation outlined above emergent etiologies such as obstruction, volvulus, metabolic abnormality, infection, neurologic, as well as others were deemed relatively unlikely. The patient informed about the findings as listed above. All questions were answered and he was pleased with the treatment plan. Return instructions were outlined and the patient was discharged in stable condition. Outpatient prescription management: Tamsulosin 0.4mg PO daily for 14 days Referral: The patient was referred back to their primary care physician for follow-up in 2 to 3 days for a recheck of the current condition. Recommended to call [facility] ([phone]) in the morning regarding removal of chandra catheter in 1 week. Recommended to call his assembler final office in the morning regarding management for his chronic constipation. Impression Primary Impression: Constipation Additional Impression: Urinary retention Departure Information Dispostion Home / Self-Care Condition FAIR Prescriptions Tamsulosin Hcl (FLOMAX) 0.4 Mg Cap 1 CAP PO DAILY for 14 Days, #14 CAP 5 Refills Prov: Kwesi Sweet MD 04/05/17 Referrals Johnathan Rain III, M.D. (PCP) Patient Instructions [facility] Additional Instructions CONSTIPATION INSTRUCTIONS: DO NOT drive, drink alcohol, operate machinery, or perform dangerous activities today. You were given medications in the ER that can affect your ability to safely function or operate a vehicle. Magnesium Citrate solution: Drink of the bottle to treat constipation. If you do not have a good bowel movement within 8 hrs, drink the second half of the bottle. This is available over the counter. Only use one bottle, and this should not be used again without direction of your primary provider. Colace 100mg: Take one twice daily as needed for hard stools or constipation. This is available over the counter. Read all the package inserts or medication information paperwork provided. If you have any questions or concerns call your primary provider, pharmacist or the ER for assistance. You may eat a regular high fiber diet, without restrictions. Cereals, fruits and vegetables are a good source of fiber. Continue current medications. Return to the ER immediately for abdominal pain, black or worsening bloody stool , passing out or feeling like you may pass out, vomiting, fevers, chest pains, difficulty breathing, worsening of your condition, or as needed. Follow up with your primary physician's office on the next business day to set up a follow up appointment for a recheck of your current condition. Due to your urinary retention a chandra catheter was placed. Please call [facility] ([phone]) in the morning regarding removal of this in 1 week. You have been prescribed tamsulosin to help pass this. You are also more likely to pass if your constipation is better controlled. Please call your GI doctors office in the morning regarding your chronic constipation. Resident Tracking Resident Involvement: Resident Care Provided Care Provided: Adult ED Problem Qualifiers Primary Impression: Constipation Constipation type: slow transit constipation Qualified Codes: K59.01 - Slow transit constipation
[2017-04-05 16:57] LABS: BASO % 0.2 %; BASO ABS # 0.02 K/uL (0-0.2); COMPLETE YES; EOS % 0.2 %; HEMATOCRIT 49.6 % (42-52); IG% 0.3 %; LYMPH % 9.8 %; LYMPH ABS # 1.28 K/uL (1.2-3.4); MEAN CORPUSCULAR HEMOGLOBIN 27.7 pg (25-34); MEAN CORPUSCULAR HGB CONC 31.9 g/dl (32-36); MEAN PLATELET VOLUME 8.5 fL (7.4-10.4); MONO % 4.4 %; NEUT % 85.1 %; PLATELET COUNT 289 K/uL (130-400); WHITE BLOOD COUNT 13.08 K/uL (4.8-10.8)
--- NOTE | 2017-04-05 17:11 | DIAGNOSTIC IMAGING REPORT ---
CHEST AND ABDOMEN 2 VIEWS HISTORY: Generalized abdominal pain ?obstruction COMPARISON: Chest 03/01/2016. FINDINGS: The lungs are clear. The cardiomediastinal silhouette is within normal limits. There is no pneumoperitoneum or pneumatosis. The bowel gas pattern is unremarkable. No evidence for bowel obstruction. No renal or ureteral calculi. Multiple pelvic phleboliths. Cervical spinal fusion hardware. Large amount well-formed stool seen throughout the colon and rectum. IMPRESSION: No acute cardiopulmonary process. No evidence for bowel obstruction. Large amount of well-formed stool seen throughout the colon and rectum. Electronically signed by: Ty Bo M.D. 04/05/2017 5:10 PM Dictated Date/Time: 04/05/2017 5:08 PM
[2017-04-05] MEDS ORDERED: POLYETHYLENE (MIRALAX) 17 GM PACK PO STA ×2 (17:19→18:30)
[2017-04-05 17:22] LABS: BUN/CREATININE RATIO 24.5 (10-20); CALCIUM 9.2 mg/dl (8.5-10.1); CREATININE 0.86 mg/dl (0.60-1.40); POTASSIUM 3.5 mmol/L (3.5-5.1)
[2017-04-05 17:24] LABS: ALB/GLOB RATIO 1.3 (0.9-2)
[2017-04-05 19:13] LABS: MANUAL MICROSCOPIC REQUIRED? NO; REVIEW REQ? NO; URINE APPEARANCE CLEAR (CLEAR); URINE BILIRUBIN NEG (NEG); URINE COLOR DK YELLOW; URINE EPITHELIAL CELL AUTO 0-5 /lpf (0-5); URINE NITRITE NEG (NEG); URINE PH 6.5 (4.5-7.5); URINE SPECIFIC GRAVITY 1.025 (1.000-1.030); UROBILINOGEN NEG (NEG); ZZURINE CULT IF INDIC CATH NO
[2017-04-05] MEDS ORDERED: BISACODYL 10 MG SUPP PR STA (19:17)
[2017-04-05] MEDS ORDERED: GLYCERIN ADULT 1 EA SUPP PR ONE (19:30)
[2017-04-05] MEDS ORDERED: LIDOCAINE HCL 2% JELLY 30 ML TUBE EXT ONE (19:51)
[2017-04-05] MEDS ORDERED: MAGNESIUM CITRATE 296 ML/BTL PO STA (20:51)
[2017-04-05] MEDS ORDERED: TAMS0.4C38 PO (20:55)
[2017-04-05 21:30] VITALS: BP 146/92; PULSE 98; TEMP 36.7; O2SAT 99
--- NOTE | 2017-04-06 12:05 | EMERGENCY ROOM VISIT NOTE ---
ED Visit Note First contact with patient: 16:24 Resident Physician Supervision Note: I was present with Dr. Sweet during the history and exam. I discussed the case with the resident and agree with the findings and plan as documented in the note. Documented By: Herson Martinez
[2017-04-16] MEDS ORDERED: NALO1TAB2 PO (07:34)
[2017-04-16] MEDS ORDERED: AMT24 PO (07:34)
[2017-04-16] MEDS ORDERED: ATEN-173 PO (08:14)
[2017-04-16] MEDS ORDERED: AZEL0.056 NAE (09:09)
[2017-04-16] MEDS ORDERED: HYDR10TA52 PO (09:09)
[2017-04-16] MEDS ORDERED: AMIT75TA2 PO (09:30)
[2017-04-16] MEDS ORDERED: AMLO-110 PO (10:33)
[2017-04-16] MEDS ORDERED: ATOR-24 PO (11:14)
[2017-04-16] MEDS ORDERED: DIPH38TA PO (15:52)
[2017-04-16] MEDS ORDERED: MULTTAB PO (15:52)
[2017-04-16] MEDS ORDERED: OMEP40CA41 PO (16:23)
[2017-04-16] MEDS ORDERED: PROM25TA16 PO (16:23)
[2017-04-16] MEDS ORDERED: NF34 TOP (16:23)
[2017-04-16] MEDS ORDERED: GABA1CAP4 PO (16:23)
[2017-04-16] MEDS ORDERED: MOME6000 NAE (16:23)
[2017-04-16] MEDS ORDERED: [UNRECOGNIZED DRUG - CODE] TOP (16:23)
[2017-04-16] MEDS ORDERED: ZNF/4 PO (16:23)
[2017-04-16] MEDS ORDERED: ASPI15TA PO (17:24)
[2017-04-16] MEDS ORDERED: LEVO75TA5 PO (17:36)
[2017-04-16] MEDS ORDERED: OXYC-106 PO (19:02)
[2017-05-17] MEDS ORDERED: BACL10TA PO (15:32)
[2017-06-10] MEDS ORDERED: GABA1CAP5 PO (08:15)
[2017-06-29] MEDS ORDERED: PLV75 PO (12:38)
[2017-06-29] MEDS ORDERED: PANT40TA PO (13:01)
[2017-08-11] MEDS ORDERED: CLOP1TAB15 PO (10:46)
[2017-08-11] MEDS ORDERED: PANT40TA PO (10:46)
[2017-08-26] MEDS ORDERED: AZIT500T3 PO (07:30)
[2017-08-26] MEDS ORDERED: PRED20TA PO (07:30)
[2017-08-30] MEDS ORDERED: PRT40 PO (16:02)
== END 2017-04-05 21:31 | disposition home or self-care (01) ==
LOC: C.EDB 15:00
DX: K59.00 Constipation, unspecified (principal); R33.9 Retention of urine, unspecified; I10 Essential (primary) hypertension; E78.5 Hyperlipidemia, unspecified; K58.9 Irritable bowel syndrome, unspecified; R15.9 Full incontinence of feces; Z79.899 Other long term (current) drug therapy

== ENCOUNTER 2017-04-08 19:54 | Emergency (ER) | payer OTHER, BC ==
[~2017-04-08] VITALS: Ht 175.3 cm; Wt 78.5 kg
[~2017-04-08 19:54] MED LIST changes: -ACETTAB19 PO; +TAMS0.4C38 PO; -TEST0.05 TOP
[2017-04-08 19:58] VITALS: TEMP 37.2; Ht 175.3 cm; Wt 78.5 kg
--- NOTE | 2017-04-08 20:43 | EMERGENCY ROOM VISIT NOTE ---
History Report prepared by Rosalba: Elvi Reynoso Under the Supervision of: Dr. Herson Martinez M.D. First contact with patient: 20:31 Chief Complaint: PAIN (GENERALIZED) Stated Complaint: PAIN WHERE CATHETER INSERTED History of Present Illness The patient is a 61 year old male who presents to the Emergency Room with complaints of constant pain to site of Chandra catheter beginning today. The patient was seen in the ED on Tuesday for constipation. The Chandra was put in due to urinary retention that was caused by the constipation. He is having normal bowel movement. The patient denies any other symptoms at this time. Source of History: patient Onset: today Position: other (global) Quality: other (chandra catheter site) Timing: constant Note: The patient denies any other symptoms at this time. Review of Systems See HPI for pertinent positives & negatives. A total of 10 systems reviewed and were otherwise negative. Past Medical & Surgical Medical Problems: (1) Benign hypertension (2) Deviated nasal septum (3) Hyperlipidemia (4) IBS (5) Tonsillectomy Family History Patient reports no known family medical history. Social History Smoking Status: Never Smoker Alcohol Use: none Housing Status: lives alone Occupation Status: retired Current/Historical Medications Scheduled Amitriptyline Hcl (Elavil), 75 MG PO HS Amlodipine (Norvasc), 5 MG PO QAM Aspirin-Caffeine (Back & Body Extra Strengt), 2 TABS PO BID Atenolol (Tenormin), 25 MG PO BID Atorvastatin (Lipitor), 40 MG PO HS Clobetasol Propionate (Clobetasol Propionate), 1 APPLN TOP BID Dicyclomine HCl (Dicyclomine HCl), 1 TAB PO TID Diphenhydramine-Acetaminophen (Excedrin Pm), 2 TABS PO HS Gabapentin (Gabapentin), 300 MG PO TID Hydrocortisone (Cortef), 10 MG PO QAM Levothyroxine Sodium (Levothyroxine Sodium), 75 MCG PO QAM Lubiprostone (Amitiza), 24 MCG PO BID Menthol (Topical Analgesic) (Icy Hot Back Patch), 1 PATCH TOP PRN UD Mometasone Furoate (Nasal) (Mometasone Furoate), 2 SPRAYS DENNIS BID Morphine Sulfate (Morphine Sulfate Er), 30 MG PO BID Multivitamins/Minerals (Mvi With Minerals), 1 TAB PO DAILY Omeprazole (Prilosec), 40 MG PO BID Tamsulosin Hcl (Flomax), 1 CAP PO DAILY Tizanidine (Tizanidine HCl), 8 MG PO TID Scheduled PRN Azelastine HCl (Azelastine HCl), 2 SPRAYS DENNIS TID PRN for Nasal Congestion Naloxegol Oxalate (Movantik), 12.5 MG PO UD PRN for Constipation Oxycodone/Acetaminophen 10MG/325MG (Percocet 10MG/325MG), 1 TAB PO Q6 PRN for Pain Promethazine HCl (Promethazine HCl), 25 MG PO Q6 PRN for Nausea Allergies Coded Allergies: No Known Allergies (Unverified , 04/05/17) Physical Exam Vital Signs Date Time Temp Pulse Resp B/P (MAP) Pulse Ox O2 Delivery O2 Flow Rate FiO2 04/08/17 20:46 82 16 172/104 98 Room Air 04/08/17 19:58 37.2 119 16 169/91 97 Room Air Physical Exam GENERAL: Patient is a healthy-appearing well-nourished male HEAD: Normocephalic atraumatic EYES: Ocular movements intact pupils equal and react to light OROPHARYNX mucous membranes are moist no exudates present no erythema or edema present NECK: Supple no nuchal rigidity CHEST: Good equal expansion LUNGS: Clear and equal to auscultation CARDIAC: Normal S1 and S2 ABDOMEN: Soft nontender no guarding no pain : Chandra catheter in place BACK: No CVA tenderness EXTREMITIES: No pain upon palpation normal muscle strength in all groups no clubbing cyanosis or edema NEURO: Patient is following commands and answering questions appropriately. Alert and oriented x3 Cranial Nerves 2-12 grossly intact Medical Decision & Procedures ED Course 2033: Past medical records reviewed. The patient was evaluated in room C7. A complete history and physical examination was performed. 2035: The Chandra catheter will be removed. 2039: Upon reexamination the patient is hemodynamically stable. I discussed results and treatment plan with the patient. He verbalizes agreement and understanding. The patient is ready for discharge. Medical Decision Medication Reconciliation: I attest that I have personally reviewed the patient' s current medication list. Blood Pressure Screening: Patient was found to have an elevated blood pressure and was referred to their primary care doctor for recheck and further treatment This is a 61-year-old male who presents emergency department asking for sore be removed. The patient's constipation has resolved and he feels that he will be only urinate on his own. For this reason the Chandra was removed. I recommended that the patient follow-up with urology. Patient was in agreement with the treatment plan. Impression Primary Impression: Encounter for Chandra catheter removal Scribe Attestation The scribe's documentation has been prepared under my direction and personally reviewed by me in its entirety. I confirm that the note above accurately reflects all work, treatment, procedures, and medical decision making performed by me. Departure Information Dispostion Home / Self-Care Referrals Johnathan Rain III, M.D. (PCP) Forms HOME CARE DOCUMENTATION FORM, IMPORTANT VISIT INFORMATION, WORK / SCHOOL INSTRUCTIONS Patient Instructions [facility] Additional Instructions Follow up with Urology You were found to have an elevated blood pressure today (>120 sytolic or >90 diastolic). Per medicare guidelines, you need to follow up with this blood pressure screening with your Primary Care Physician (PCP). For a new PCP call [phone].
[2017-04-08 20:46] VITALS: BP 172/104; PULSE 82; O2SAT 98
[2017-04-16] MEDS ORDERED: NALO1TAB2 PO (07:34)
[2017-04-16] MEDS ORDERED: AMT24 PO (07:34)
[2017-04-16] MEDS ORDERED: ATEN-173 PO (08:14)
[2017-04-16] MEDS ORDERED: AZEL0.056 NAE (09:09)
[2017-04-16] MEDS ORDERED: HYDR10TA52 PO (09:09)
[2017-04-16] MEDS ORDERED: AMIT75TA2 PO (09:30)
[2017-04-16] MEDS ORDERED: AMLO-110 PO (10:33)
[2017-04-16] MEDS ORDERED: ATOR-24 PO (11:14)
[2017-04-16] MEDS ORDERED: MULTTAB PO (15:52)
[2017-04-16] MEDS ORDERED: DIPH38TA PO (15:52)
[2017-04-16] MEDS ORDERED: NF34 TOP (16:23)
[2017-04-16] MEDS ORDERED: [UNRECOGNIZED DRUG - CODE] TOP (16:23)
[2017-04-16] MEDS ORDERED: OMEP40CA41 PO (16:23)
[2017-04-16] MEDS ORDERED: MOME6000 NAE (16:23)
[2017-04-16] MEDS ORDERED: GABA1CAP4 PO (16:23)
[2017-04-16] MEDS ORDERED: ZNF/4 PO (16:23)
[2017-04-16] MEDS ORDERED: PROM25TA16 PO (16:23)
[2017-04-16] MEDS ORDERED: ASPI15TA PO (17:24)
[2017-04-16] MEDS ORDERED: LEVO75TA5 PO (17:36)
[2017-04-16] MEDS ORDERED: OXYC-106 PO (19:02)
[2017-05-17] MEDS ORDERED: BACL10TA PO (15:32)
[2017-06-10] MEDS ORDERED: GABA1CAP5 PO (08:15)
[2017-06-29] MEDS ORDERED: PLV75 PO (12:38)
[2017-06-29] MEDS ORDERED: PANT40TA PO (13:01)
[2017-08-11] MEDS ORDERED: CLOP1TAB15 PO (10:46)
[2017-08-11] MEDS ORDERED: PANT40TA PO (10:46)
[2017-08-26] MEDS ORDERED: PRED20TA PO (07:30)
[2017-08-26] MEDS ORDERED: AZIT500T3 PO (07:30)
[2017-08-30] MEDS ORDERED: PRT40 PO (16:02)
== END 2017-04-08 20:48 | disposition home or self-care (01) ==
LOC: C.EDB 19:56 → C.EDC 20:48
DX: T83.84XA Pain due to genitourinary prosthetic devices, implants and grafts, initial encounter (principal); Y84.6 Urinary catheterization as the cause of abnormal reaction of the patient, or of later complication, without mention of misadventure at the time of the procedure; I10 Essential (primary) hypertension; E78.5 Hyperlipidemia, unspecified; K58.9 Irritable bowel syndrome, unspecified; Z79.899 Other long term (current) drug therapy

== ENCOUNTER 2017-04-16 22:09 | Emergency (ER) | payer OTHER, BC ==
[~2017-04-16] VITALS: Ht 175.3 cm; Wt 75.7 kg
[~2017-04-16 22:09] MED LIST changes: +AMIT75TA2 PO; +AMLO-110 PO; +AMT24 PO; +ASPI15TA PO; +ATEN-173 PO; +ATOR-24 PO; +AZEL0.056 NAE; +DIPH38TA PO; +GABA1CAP4 PO; +HYDR10TA52 PO; +LEVO75TA5 PO; +MOME6000 NAE; +MULTTAB PO; +NALO1TAB2 PO; +NF34 TOP; +OMEP40CA41 PO; +OXYC-106 PO; +PROM25TA16 PO; +ZNF/4 PO; +[UNRECOGNIZED DRUG - CODE] TOP
[2017-04-16 22:17] VITALS: TEMP 36.3; Ht 175.3 cm; Wt 75.7 kg
[2017-04-16] MEDS ORDERED: HYDR5TAB57 PO (22:43)
[2017-04-16] MEDS ORDERED: BUTA1TAB70 PO (22:43)
[2017-04-16] MEDS ORDERED: POLY1POW2 PO (22:43)
[2017-04-16] MEDS ORDERED: FLM4 PO (22:43)
[2017-04-16] MEDS ORDERED: HYDR20TA3 PO (22:43)
[2017-04-16] MEDS ORDERED: DICY10CA12 PO (22:43)
[2017-04-16] MEDS ORDERED: SALI0.6510 NAE (22:48)
[2017-04-16] MEDS ORDERED: HYDROmorphone INJ 2 MG/ML SYR/VIAL IM STA (22:51)
[2017-04-16] MEDS ORDERED: ONDANSETRON 4MG OD TAB PO STA (22:51)
[2017-04-16] MEDS ORDERED: MORP1TAB12 PO (22:53)
[2017-04-16] MEDS ORDERED: DEXAMETHASONE SOD INJ 10 MG/ML VIAL IM ONE (23:00)
--- NOTE | 2017-04-16 23:26 | EMERGENCY ROOM VISIT NOTE ---
History Report prepared by Rosalba: Zo Sow Under the Supervision of: Dr. Xiao Johnson M.D. First contact with patient: 22:33 Chief Complaint: NOSE BLEED (MINOR) Stated Complaint: CHRONIC NECK PAIN, NOSE BLEED S/P SURGERY History of Present Illness The patient is a 61 year old male who presents to the Emergency Room with complaints of worsening neck pain starting 5 days ago. The patient has a history of chronic neck pain. He had surgery for a pituitary tumor 5 days ago. His neck pain was not managed well during his surgery and his neck pain has worsened. He is taking Percocet, morphine, and Excedrin to no significant relief. He had a nose bleed earlier today which resolved. He denies any fever. He believes the pain is an exacerbation of his chronic neck pain and not due to his surgery. He was on steroids after his surgery. Source of History: patient Onset: 5 days ago Position: neck Quality: other (pain) Timing: worsening Associated Symptoms: No fevers Review of Systems See HPI for pertinent positives & negatives. A total of 10 systems reviewed and were otherwise negative. Past Medical & Surgical Medical Problems: (1) Benign hypertension (2) Deviated nasal septum (3) Hyperlipidemia (4) IBS (5) Tonsillectomy Family History Patient reports no known family medical history. Social History Smoking Status: Never Smoker Alcohol Use: none Marital Status: single Housing Status: lives alone Occupation Status: retired Current/Historical Medications Scheduled Amitriptyline Hcl (Elavil), 75 MG PO HS Atenolol (Tenormin), 25 MG PO BID Atorvastatin (Lipitor), 40 MG PO HS Dicyclomine Hcl (Dicyclomine Hcl), 10 MG PO TID Diphenhydramine-Acetaminophen (Excedrin Pm), 2 TABS PO HS Gabapentin (Gabapentin), 300 MG PO TID Hydrocortisone (Cortef), 10 MG PO QAM Hydrocortisone (Cortef), 5 MG PO DAILY Hydrocortisone (Cortef), 20 MG PO DAILY Levothyroxine Sodium (Levothyroxine Sodium), 75 MCG PO QAM Lubiprostone (Amitiza), 24 MCG PO BID Mometasone Furoate (Nasal) (Mometasone Furoate), 2 SPRAYS DENNIS BID Morphine Sulfate (Morphine Sulfate Er), 30 MG PO BID Multivitamins/Minerals (Mvi With Minerals), 1 TAB PO DAILY Omeprazole (Prilosec), 40 MG PO BID Saline ([place] Nasal [place]), 1 SPRAY DENNIS UD Tamsulosin HCl (Tamsulosin HCl), 0.4 MG PO DAILY Tizanidine (Tizanidine HCl), 8 MG PO TID Scheduled PRN Amlodipine (Norvasc), 5 MG PO QAM PRN for Raynauds Snydrome Aspirin-Caffeine (Back & Body Extra Strengt), 2 TABS PO BID PRN for Pain Azelastine HCl (Azelastine HCl), 2 SPRAYS DENNIS TID PRN for Nasal Congestion Vdlhakpzse-Ldihherpmtufa-Zdzxw (Esgic), 1 TAB PO UD PRN for Headache Clobetasol Propionate (Clobetasol Propionate), 1 APPLN TOP BID PRN for Skin Care Menthol (Topical Analgesic) (Icy Hot Back Patch), 1 PATCH TOP UD PRN for Pain Naloxegol Oxalate (Movantik), 12.5 MG PO UD PRN for Constipation Oxycodone/Acetaminophen 10MG/325MG (Percocet 10MG/325MG), 1 TAB PO Q6H PRN for Pain Polyethylene Glycol 3350 (Bulk (Polyethylene Glycol 3350), 17 GM PO DAILY PRN for Constipation Promethazine HCl (Promethazine HCl), 25 MG PO Q6H PRN for Nausea Allergies Coded Allergies: No Known Allergies (Unverified , 04/05/17) Physical Exam Vital Signs Date Time Temp Pulse Resp B/P (MAP) Pulse Ox O2 Delivery O2 Flow Rate FiO2 04/17/17 00:03 96 18 144/70 96 04/16/17 22:17 36.3 89 18 148/77 100 Room Air Physical Exam Vital signs reviewed. General: Well-appearing male, in no significant distress. HEENT: No scleral icterus, PERRLA, neck supple. Atraumatic. Pain with palpation of cervical paraspinous muscles, no active epistaxis. Cardiovascular: Regular rate and rhythm, no extra sounds. Pulmonary: Clear to auscultation bilaterally, normal work of breathing. Abdomen: Soft, nontender, nondistended, positive bowel sounds. Musculoskeletal: Atraumatic, no peripheral edema. Neurologic: Patient awake alert and oriented x 3, full strength in all 4 extremities. Cranial nerves 2 through 12 grossly intact. Skin: Warm, diaphoretic, no rash Medical Decision & Procedures Medications Administered Medications (Trade) Dose Ordered Sig/Bruce Route Start Time Stop Time Status Last Admin Dose Admin Ondansetron HCl (Zofran Odt) 4 mg ONE STAT PO 04/16/17 22:51 04/16/17 22:53 DC 04/16/17 23:01 4 MG Dexamethasone Sodium Phosphate (Decadron Inj) 10 mg NOW ONCE IM 04/16/17 23:00 04/16/17 23:01 DC 04/16/17 23:02 10 MG Hydromorphone HCl (Dilaudid Inj) 2 mg NOW STAT IM 04/16/17 22:51 04/16/17 22:53 DC 04/16/17 23:02 2 MG ED Course 2249: Past medical records reviewed. The patient was evaluated in room A12B. A complete history and physical examination was performed. 2251: Dilaudid Inj 2 mg IM, Zofran Odt 4 mg PO. 2300: Decadron Inj 10 mg IM. 2355: Upon reevaluation, the patient appeared to have improvement of his symptoms. I discussed findings with him. He verbalized agreement of the treatment plan. He was discharged home. Medical Decision Differential diagnosis: Narcotic dependancy, muscular strain, acute on chronic pain, cervical radiculopathy. Medication Reconciliation: I attest that I have personally reviewed the patient' s current medication list. Blood Pressure Screening: Patient was found to have a slightly elevated blood pressure due to circumstances. I do not believe that the patient requires hypertension monitoring. This patient was evaluated and appeared to be in some discomfort. Patient was medicated with IM Dilaudid, IM Decadron and oral Zofran. He has had this cocktail before with good success. Patient was reevaluated shortly thereafter was feeling improved. He will continue his pain medications as prescribed at home. He will return to the ER for worsening of symptoms or any medical concerns. Impression Primary Impression: acute exacerbation of chronic neck pain Scribe Attestation The scribe's documentation has been prepared under my direction and personally reviewed by me in its entirety. I confirm that the note above accurately reflects all work, treatment, procedures, and medical decision making performed by me. Departure Information Dispostion Home / Self-Care Referrals BriseydaJohnathan farnsworth III, M.D. (PCP) Forms HOME CARE DOCUMENTATION FORM, IMPORTANT VISIT INFORMATION, WORK / SCHOOL INSTRUCTIONS Patient Instructions My [facility] [employer] Additional Instructions Diagnosis: Acute exacerbation of chronic neck pain Please follow-up with your physician this week for reevaluation. Continue your medications as prescribed. Return to the ER for worsening of symptoms or any medical concerns.
[2017-04-17 00:03] VITALS: BP 144/70; PULSE 96; O2SAT 96
[2017-05-17] MEDS ORDERED: BACL10TA PO (15:32)
[2017-06-10] MEDS ORDERED: GABA1CAP5 PO (08:15)
[2017-06-29] MEDS ORDERED: PLV75 PO (12:38)
[2017-06-29] MEDS ORDERED: PANT40TA PO (13:01)
== END 2017-04-17 00:04 | disposition home or self-care (01) ==
LOC: C.EDB 22:10 → C.EDA 04-17 00:04
DX: M54.2 Cervicalgia (principal); G89.29 Other chronic pain; Z98.890 Other specified postprocedural states; I10 Essential (primary) hypertension; E78.5 Hyperlipidemia, unspecified; K58.9 Irritable bowel syndrome, unspecified; Z79.899 Other long term (current) drug therapy

== ENCOUNTER 2017-04-26 23:56 | Emergency (ER) | payer OTHER, BC ==
[~2017-04-26] VITALS: Ht 175.3 cm; Wt 77.1 kg
[~2017-04-26 23:56] MED LIST changes: -BNT10 PO; +BUTA1TAB70 PO; +DICY10CA12 PO; +FLM4 PO; +HYDR20TA3 PO; +HYDR5TAB57 PO; +MORP1TAB12 PO; +POLY1POW2 PO; +SALI0.6510 NAE; -TAMS0.4C38 PO
[2017-04-27 00:15] VITALS: Ht 175.3 cm; Wt 77.1 kg
[2017-04-27] MEDS ORDERED: HYDROmorphone INJ 1 MG/ML SYR IM STA (00:46)
[2017-04-27] MEDS ORDERED: KETOROLAC TROMETHAMINE 60 MG/2 ML VIAL IM STA (00:46)
--- NOTE | 2017-04-27 00:51 | EMERGENCY ROOM VISIT NOTE ---
History Report prepared by Darynibsung: No Godoy Under the Supervision of: Dr. Tyra Bobo D.O. First contact with patient: 00:35 Chief Complaint: NECK PAIN Stated Complaint: SEVERE PAIN IN NECK, SHOULDERS History of Present Illness The patient is a 61 year old male who presents to the Emergency Room with complaints of persistent neck pain for the past 1 day. He rates his discomfort as a 10/10 in severity. A cold ice-pack has provided minimal relief. The patient reports he has chronic neck pain and occasionally has to come to the ED for treatment. He notes the last time he was here for his neck pain was approximately 10 days ago after undergoing pituitary surgery at [facility] in [place] , which "aggravated his neck". His primary care physician is Dr. Rain with [facility] and the patient states he prescribes him prescription pain medication and he also follows with the local [facility] for trigger point injections every 3 months or so. The patient denies any pain or weakness in his arms. Source of History: patient Onset: 1 day [employer] Position: neck Symptom Intensity: 10/10 Timing: other (persistent) Modifying Factors (Relieving): ice (ice-pack) Associated Symptoms: No weakness (pain or weakness in bilateral arms) Review of Systems See HPI for pertinent positives & negatives. A total of 10 systems reviewed and were otherwise negative. Past Medical & Surgical Medical Problems: (1) Benign hypertension (2) Deviated nasal septum (3) Hyperlipidemia (4) IBS (5) Tonsillectomy Family History Patient reports no known family medical history. Social History Smoking Status: Never Smoker Alcohol Use: none Drug Use: none Marital Status: single Housing Status: lives alone Occupation Status: retired Current/Historical Medications Scheduled Amitriptyline Hcl (Elavil), 75 MG PO HS Atenolol (Tenormin), 25 MG PO BID Atorvastatin (Lipitor), 40 MG PO HS Dicyclomine Hcl (Dicyclomine Hcl), 10 MG PO TID Diphenhydramine-Acetaminophen (Excedrin Pm), 2 TABS PO HS Gabapentin (Gabapentin), 300 MG PO TID Hydrocortisone (Cortef), 10 MG PO QAM Hydrocortisone (Cortef), 5 MG PO DAILY Hydrocortisone (Cortef), 20 MG PO DAILY Levothyroxine Sodium (Levothyroxine Sodium), 75 MCG PO QAM Lubiprostone (Amitiza), 24 MCG PO BID Mometasone Furoate (Nasal) (Mometasone Furoate), 2 SPRAYS DENNIS BID Morphine Sulfate (Morphine Sulfate Er), 30 MG PO BID Multivitamins/Minerals (Mvi With Minerals), 1 TAB PO DAILY Omeprazole (Prilosec), 40 MG PO BID Saline ([place] Nasal [place]), 1 SPRAY DENNIS UD Tamsulosin HCl (Tamsulosin HCl), 0.4 MG PO DAILY Tizanidine (Tizanidine HCl), 8 MG PO TID Scheduled PRN Amlodipine (Norvasc), 5 MG PO QAM PRN for Raynauds Snydrome Aspirin-Caffeine (Back & Body Extra Strengt), 2 TABS PO BID PRN for Pain Azelastine HCl (Azelastine HCl), 2 SPRAYS DENNIS TID PRN for Nasal Congestion Rhmfoidtqu-Ygacofkdotlup-Wawtx (Esgic), 1 TAB PO UD PRN for Headache Clobetasol Propionate (Clobetasol Propionate), 1 APPLN TOP BID PRN for Skin Care Menthol (Topical Analgesic) (Icy Hot Back Patch), 1 PATCH TOP UD PRN for Pain Naloxegol Oxalate (Movantik), 12.5 MG PO UD PRN for Constipation Oxycodone/Acetaminophen 10MG/325MG (Percocet 10MG/325MG), 1 TAB PO Q6H PRN for Pain Polyethylene Glycol 3350 (Bulk (Polyethylene Glycol 3350), 17 GM PO DAILY PRN for Constipation Promethazine HCl (Promethazine HCl), 25 MG PO Q6H PRN for Nausea Allergies Coded Allergies: No Known Allergies (Unverified , 04/27/17) Physical Exam Vital Signs Date Time Temp Pulse Resp B/P (MAP) Pulse Ox O2 Delivery O2 Flow Rate FiO2 04/27/17 01:56 36.3 75 19 121/71 95 04/27/17 01:55 75 19 121/71 95 Room Air 04/27/17 00:15 36.3 75 19 124/79 95 Room Air Physical Exam General: The patient appears extremely uncomfortable. A cold pack is in place on his neck. HEENT: Head - normocephalic and atraumatic Pupils are equal, round, and reactive to light. Extraocular eye muscles are intact, and sclera are anicteric. Nose - moist nasal mucosa without discharge. Mouth - moist buccal mucosa. Oropharynx is nonerythematous and there is no tonsillar exudate or edema noted. Neck: Pain with palpation to posterior cervical spine. Supple; no nuchal rigidity or cervical lymphadenopathy. Heart: Regular rate and rhythm. There is a normal S1 and S2 with no murmurs, clicks, or gallops appreciated. Lungs: Clear to auscultation bilaterally with no wheezes, rales, or rhonchi. Abdomen: Soft, completely nontender, nondistended, with good bowel sounds. There are no palpable pulsatile masses or hepatosplenomegaly. There is no guarding, rigidity, or rebound noted. Extremities: No evidence of cyanosis, clubbing, or edema. There are easily palpable peripheral pulses. Skin: warm and dry with good turgor and no rashes. Medical Decision & Procedures Medications Administered Medications (Trade) Dose Ordered Sig/Bruce Route Start Time Stop Time Status Last Admin Dose Admin Dexamethasone Sodium Phosphate (Decadron Inj) 10 mg NOW ONCE IM 04/27/17 01:00 04/27/17 01:01 DC 04/27/17 01:25 10 MG Ketorolac Tromethamine (Toradol Inj) 60 mg NOW STAT IM 04/27/17 00:46 04/27/17 00:48 DC 04/27/17 01:26 60 MG Hydromorphone HCl (Dilaudid Inj) 1 mg NOW STAT IM 04/27/17 00:46 04/27/17 00:48 DC 04/27/17 01:25 1 MG Ondansetron HCl (Zofran Odt) 4 mg ONE ONCE PO 04/27/17 01:00 04/27/17 01:01 DC 04/27/17 01:25 4 MG Procedure Dilaudid IM, Toradol IM, Zofran PO, Decadron IM. ED Course 0041: Past medical records reviewed. The patient was evaluated in room A10. A complete history and physical exam was performed. 0046: Dilaudid 1 mg IM, Toradol 60 mg IM. 0100: Zofran 4 mg PO, Decadron 10 mg IM. 0140: I reevaluated the patient. He is feeling much better. I discussed his results and discharge instructions and he verbalized complete understanding and agreement. Medical Decision I attest that I have personally reviewed the patient's current medication list. Patient was found to have normal blood pressure on screening and does not require follow-up. The patient is a 61 year old male who presents to the ED with neck pain. The different diagnoses include: acute exacerbation of chronic neck pain, cervical strain and torticollis. The patient has a history of chronic cervical spine pain for which she follows with pain management. The patient notes occasional episodes of exacerbation of severe pain which require visits to the emergency department. The patient describes a list of medications which typically will help when he has the severe exacerbations. He was given Toradol, Decadron, Dilaudid, and Zofran with significant relief of his discomfort. I've encouraged him to follow up with pain management ultimately he was here for treatment. Impression Primary Impression: Pain of cervical spine Scribe Attestation The scribe's documentation has been prepared under my direction and personally reviewed by me in its entirety. I confirm that the note above accurately reflects all work, treatment, procedures, and medical decision making performed by me. Departure Information Dispostion Home / Self-Care Referrals Johnathan Rain III, M.D. (PCP) Patient Instructions [facility] Additional Instructions Rest. follow up by phone in the morning with pain management
[2017-04-27] MEDS ORDERED: DEXAMETHASONE SOD INJ 10 MG/ML VIAL IM ONE (01:00)
[2017-04-27] MEDS ORDERED: ONDANSETRON 4MG OD TAB PO ONE (01:00)
[2017-04-27 01:56] VITALS: BP 121/71; PULSE 75; TEMP 36.3; O2SAT 95
[2017-05-17] MEDS ORDERED: BACL10TA PO (15:32)
[2017-06-10] MEDS ORDERED: GABA1CAP5 PO (08:15)
[2017-06-29] MEDS ORDERED: PLV75 PO (12:38)
[2017-06-29] MEDS ORDERED: PANT40TA PO (13:01)
== END 2017-04-27 01:58 | disposition home or self-care (01) ==
LOC: C.EDB 23:57 → C.EDA 04-27 01:58
DX: M54.2 Cervicalgia (principal); G89.29 Other chronic pain; Z98.890 Other specified postprocedural states; I10 Essential (primary) hypertension; E78.5 Hyperlipidemia, unspecified; K58.9 Irritable bowel syndrome, unspecified; Z79.899 Other long term (current) drug therapy

== ENCOUNTER → 2017-05-19 | Outpatient (CLI) | payer OTHER, BC ==
[~2017-05-19] MED LIST changes: +ASPI-391 PO; +ATOR-26 PO; +ATRIN NAE; +BACL10TA PO; +BACL1TAB PO; +CLC100X PO; +CLOB1OIN2 TOP; +GABA1CAP5 PO; +MENT5PAD4 EXT; +MULT-845 PO; +PANT40TA PO; +PLV75 PO; +SENN-61 PO; +SIME80CH PO; +TEST5GEL TOP; +TIZA4CAP PO
--- NOTE | 2017-05-19 10:09 | DIAGNOSTIC IMAGING REPORT ---
C-SPINE ROUTINE W/FLEX EXT CLINICAL HISTORY: 61 years-old Male presenting with ongoing neck pain for decades. TECHNIQUE: Frontal, bilateral oblique, and lateral views of the cervical spine were obtained in neutral position. Flexion and extension lateral views were also obtained as well as open mouth odontoid view. COMPARISON: None. FINDINGS: Straightening of normal cervical lordosis with anterior plate and screw fixation of C5-6. No hardware complication. Vertebral body heights and alignment otherwise maintained. Intervertebral disc spaces preserved with the exception of discectomy changes at C5-6. No radiographic evidence of acute fracture or subluxation. No osseous neural foraminal narrowing. Flexion and extension positioning does not result in subluxation. Atlantoaxial articulation normal. Lateral masses of C1 articulate normally with C2. No prevertebral soft tissue swelling. Lung apices clear. IMPRESSION: Postsurgical changes of anterior cervical fusion of C5-6. No apparent hardware complication. No radiographic evidence of subluxation on flexion and extension. Electronically signed by: Jorge Hart M.D. 05/19/2017 10:08 AM Dictated Date/Time: 05/19/2017 10:04 AM
== END | disposition home or self-care (01) ==
LOC: C.RADBC 09:30
PROVIDERS: ATTEND Physician Assistant
DX: M54.2 Cervicalgia (principal); Z98.1 Arthrodesis status

== ENCOUNTER 2017-06-27 08:48 | Inpatient (IN) | payer OTHER, BC ==
[~2017-06-27] VITALS: Ht 175.3 cm; Wt 75.0 kg
[~2017-06-27 08:48] MED LIST changes: -ASPI-391 PO; -ATOR-26 PO; -ATRIN NAE; -BACL10TA PO; -BACL1TAB PO; -BUTA1TAB70 PO; -CLC100X PO; -CLOB1OIN2 TOP; -GABA1CAP4 PO; -HYDR20TA3 PO; -HYDR5TAB57 PO; -MENT5PAD4 EXT; -MULT-845 PO; -NALO1TAB2 PO; -PANT40TA PO; -PLV75 PO; -POLY1POW2 PO; -SENN-61 PO; -SIME80CH PO; -TEST5GEL TOP; -TIZA4CAP PO
[2017-06-27] MEDS ORDERED: SODIUM CHLORIDE 0.9% 1000ML 1,000 ML IV SCH (09:07)
--- NOTE | 2017-06-27 09:28 | EMERGENCY ROOM VISIT NOTE ---
History Report prepared by Rosalba: Yolanda Gallegos Under the Supervision of: Dr. Xiao Johnson M.D. First contact with patient: 09:01 Chief Complaint: STROKE SYMPTOMS Stated Complaint: STROKE?? Nursing Triage Summary: pt reports st 0800 awoke this am feeling not right had balance issues not able to walk straight line and difficulty with speaking. pt reports has been getting better but still not right. had previous stroke in 2013. no deficit. feels dizzy History of Present Illness The patient is a 62 year old male who presents to the Emergency Room with complaints of constant stroke-like symptoms for the past hour. The patient woke up at 2:30am and was feeling fine. He got something to eat and then fell asleep watching TV. He woke up at 8am and was feeling very dizzy. He states that he was unable to walk in a straight line and was bumping into things in the living room. He denies slurring his words, but he feels like he is having trouble getting words out. The patient is still feeling dizzy. He rates his discomfort as a 4/10 in severity. He denies any one-sided weakness. He denies any recent changes to his medications. The patient has had a TIA in the past and experienced similar symptoms at that time. He takes aspirin daily. 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 Pt having trouble walking and talking. Review of Systems See HPI for pertinent positives & negatives. A total of 10 systems reviewed and were otherwise negative. 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 Social History Smoking Status: Never Smoker Alcohol Use: none Drug Use: none Marital Status: single Housing Status: lives alone Occupation Status: retired Current/Historical Medications Scheduled Amitriptyline Hcl (Elavil), 75 MG PO HS Amlodipine (Norvasc), 5 MG PO QAM Tpmfnrf-Aoevcfmcdjsnz-Varxlneo (Excedrin Extra Strength), 2 TABS PO UD Atenolol (Tenormin), 25 MG PO BID Atorvastatin (Lipitor), 80 MG PO DAILY Clobetasol Propionate (Temovate), 1 APPLN TOP BID Dicyclomine Hcl (Dicyclomine Hcl), 10 MG PO TID Diphenhydramine-Acetaminophen (Excedrin Pm), 2 TABS PO HS Docusate Sodium (Docusate Sodium), 100 MG PO BID Gabapentin (Neurontin), 400 MG PO TID Hydrocortisone (Cortef), 10 MG PO QAM Levothyroxine Sodium (Levothyroxine Sodium), 75 MCG PO QAM Lubiprostone (Amitiza), 24 MCG PO DAILY Morphine Sulfate (Morphine Sulfate Er), 30 MG PO BID Multiple Vitamins W/ Minerals (Centrum Silver Adult 50+), 1 TAB PO DAILY Omeprazole (Prilosec), 40 MG PO DAILY Senna (Senokot), 2 TABS PO DAILY Tamsulosin HCl (Tamsulosin HCl), 0.4 MG PO DAILY Scheduled PRN Baclofen (Lioresal), 10 MG PO TID PRN for Muscle Spasms Menthol (Topical Analgesic) (Icy Hot Patch), 1 PATCH EXT DAILY PRN for Pain Oxycodone/Acetaminophen 10MG/325MG (Percocet 10MG/325MG), 1 TAB PO Q4H PRN for Pain Promethazine HCl (Promethazine HCl), 25 MG PO Q6H PRN for Nausea Simethicone (Gas-X), 80 MG PO UD PRN for gas Allergies Coded Allergies: No Known Allergies (Unverified , 05/17/17) Physical Exam Vital Signs Date Time Temp Pulse Resp B/P (MAP) Pulse Ox O2 Delivery O2 Flow Rate FiO2 06/27/17 11:33 69 16 153/85 99 Room Air 06/27/17 09:39 68 18 145/72 99 Room Air 06/27/17 09:11 70 06/27/17 08:55 99 Room Air 06/27/17 08:54 36.4 72 18 146/76 99 Room Air Physical Exam Vital signs reviewed. General: Well-appearing 62 year old male, in no significant distress. HEENT: No scleral icterus, PERRLA, neck supple. Atraumatic. Cardiovascular: Regular rate and rhythm, no extra sounds. Pulmonary: Clear to auscultation bilaterally, normal work of breathing. Abdomen: Soft, nontender, nondistended, positive bowel sounds. Musculoskeletal: Atraumatic, no peripheral edema. Neurologic: Patient awake alert and oriented x 3, full strength in all 4 extremities. Cranial nerves 2 through 12 grossly intact. Slight dysarthria. Normal finger to nose, normal heel to judd. No pronator drift. Skin: Warm, dry, no rash Medical Decision & Procedures ER Provider Diagnostic Interpretation: Radiology results as stated below per my review and radiologist interpretation: CT OF THE HEAD WITHOUT CONTRAST CLINICAL HISTORY: Stroke. Dizziness. Difficulty speaking. COMPARISON STUDY: Head CT T June 15, 2014 and MRI the brain June 16, 2014. CT DOSE: 614.27 mGy.cm TECHNIQUE: Helical axial images of the head were obtained without IV contrast. Automated exposure control was utilized for the study. A dose lowering technique was utilized adhering to the principles of ALARA. FINDINGS: No acute intracranial hemorrhage, midline shift or mass effect is present. Brain findings normal. Basilar cisterns are patent. There are no extra-axial collections. Ventricular system is normal. There are no CT findings to suggest acute dural sinus thrombosis or acute territorial infarct. Note is made of interval postsurgical findings within the sinuses and sellar/suprasellar region suggestive of a transsphenoidal resection of a sellar lesion. Expected fat is noted within the operative bed. A 1.9 x 1.1 cm soft tissue density is noted within the right aspect of the operative bed, projecting over the superior aspect of the right sphenoid sinus/sellar region. No significant calvarial abnormalities are present. IMPRESSION: 1. No acute intracranial findings. 2. Findings consistent with interval transsphenoidal resection of a sellar lesion,, suboptimally assessed by CT. 1.9 x 1.1 cm soft tissue density within the right aspect of the operative bed could reflect postsurgical change or recurrent/residual lesion. 3. Moderate ethmoid sinus mucosal thickening. Electronically signed by: John Woodson M.D. 06/27/2017 9:39 AM Dictated Date/Time: 06/27/2017 9:32 AM CHEST ONE VIEW PORTABLE CLINICAL HISTORY: Stroke symptoms. COMPARISON STUDY: Chest radiograph April 05, 2017. FINDINGS: Anterior cervical spine fusion is incidentally noted. No pneumothorax or pleural effusion is present. There is no consolidation to suggest pneumonia. Cardiomediastinal silhouette is stable. There is no evidence of pulmonary edema. The appearance of the chest is unchanged. IMPRESSION: No acute cardiopulmonary findings. Electronically signed by: John Woodson M.D. 06/27/2017 9:43 AM Dictated Date/Time: 06/27/2017 9:42 AM Laboratory Results Test 06/27/17 09:08 06/27/17 09:12 06/27/17 10:05 Prothrombin Time 10.4 SECONDS (9.0-12.0) Prothromb Time International Ratio 1.0 (0.9-1.1) Activated Partial Thromboplast Time 26.8 SECONDS (21.0-31.0) Partial Thromboplastin Ratio 1.0 Est Creatinine Clear Calc Drug Dose 92.3 ml/min Estimated Average Glucose 128 mg/dl Hemoglobin A1c 6.1 % (4.5-5.6) Total Creatine Kinase 121 U/L (39-308) Creatine Kinase MB 1.7 ng/ml (0.5-3.6) Creatine Kinase MB Ratio 1.4 (0-3.0) Troponin I < 0.015 ng/ml (0-0.045) Thyroid Stimulating Hormone (TSH) 1.540 uIu/ml (0.300-4.500) Bedside Glucose 94 mg/dl (70-99) Urine Color YELLOW Urine Appearance CLEAR (CLEAR) Urine pH 6.5 (4.5-7.5) Urine Specific [place] 1.013 (1.000-1.030) Urine Protein NEG (NEG) Urine Glucose (UA) NEG (NEG) Urine Ketones NEG (NEG) Urine Occult Blood NEG (NEG) Urine Nitrite NEG (NEG) Urine Bilirubin NEG (NEG) Urine Urobilinogen NEG (NEG) Urine Leukocyte Esterase NEG (NEG) Laboratory results per my review. ECG Indication: other Rate (beats per minute): 66 Rhythm: normal sinus Findings: no acute ischemic change, no ectopy, other (possible LVH) ED Course 0902: Past medical records reviewed. The patient was evaluated in room A10. A complete history and physical examination was performed. 0907: NSS 1000 ml @ 100 mls/hr IV 1125: I reviewed the patient's case with Chandrika Warren PA-C. [facility] will evaluate the patient for further management. 1127: I reassessed the patient at this time. He is feeling better and resting comfortably. I discussed the results and treatment plan with the patient. I answered all pertaining questions that he had. He expressed understanding and verbalized agreement. Medical Decision Differential diagnosis: Etiologies such as metabolic, infection, hypo/hyperglycemia, electrolyte abnormalities, cardiac sources, intracerebral event, toxicologic, neurologic, as well as others were entertained. This patient was evaluated and appeared to be in no significant distress. The patient had a mild dysarthria on exam, otherwise he is neurologically intact. CT scan of the head was performed and reveals no evidence of acute intracranial abnormality, postsurgical changes are noted. EKG and laboratory work are unrevealing. The patient was reevaluated and feeling well. Had very little if any residual symptoms. Given his prior history of TIA, recent surgery, the patient will be evaluated by the hospitalist service for further management. He is aware of the plan and agrees. Medication Reconcilliation Current Medication List: was personally reviewed by me Blood Pressure Screening Patient's blood pressure: Elevated blood pressure Blood pressure disposition: Referred to PCP Consults Time Called: 1121 Consulting Physician: Chandrika Warren PA-C Returned Call: 1125 I reviewed the patient's case with Chandrika Warren PA-C. [facility] will evaluate the patient for further management. Impression Primary Impression: TIA (transient ischemic attack) Scribe Attestation The scribe's documentation has been prepared under my direction and personally reviewed by me in its entirety. I confirm that the note above accurately reflects all work, treatment, procedures, and medical decision making performed by me. Departure Information Dispostion Being Evaluated By Hospitalist Referrals Johnathan Rain III, M.D. (PCP) Patient Instructions [facility] Problem Qualifiers Primary Impression: TIA (transient ischemic attack) Transient cerebral ischemia type: unspecified Qualified Codes: G45.9 - Transient cerebral ischemic attack, unspecified
--- NOTE | 2017-06-27 09:40 | DIAGNOSTIC IMAGING REPORT ---
CT OF THE HEAD WITHOUT CONTRAST CLINICAL HISTORY: Stroke. Dizziness. Difficulty speaking. COMPARISON STUDY: Head CT T June 15, 2014 and MRI the brain June 16, 2014. CT DOSE: 614.27 mGy.cm TECHNIQUE: Helical axial images of the head were obtained without IV contrast. Automated exposure control was utilized for the study. A dose lowering technique was utilized adhering to the principles of ALARA. FINDINGS: No acute intracranial hemorrhage, midline shift or mass effect is present. Brain findings normal. Basilar cisterns are patent. There are no extra-axial collections. Ventricular system is normal. There are no CT findings to suggest acute dural sinus thrombosis or acute territorial infarct. Note is made of interval postsurgical findings within the sinuses and sellar/suprasellar region suggestive of a transsphenoidal resection of a sellar lesion. Expected fat is noted within the operative bed. A 1.9 x 1.1 cm soft tissue density is noted within the right aspect of the operative bed, projecting over the superior aspect of the right sphenoid sinus/sellar region. No significant calvarial abnormalities are present. IMPRESSION: 1. No acute intracranial findings. 2. Findings consistent with interval transsphenoidal resection of a sellar lesion,, suboptimally assessed by CT. 1.9 x 1.1 cm soft tissue density within the right aspect of the operative bed could reflect postsurgical change or recurrent/residual lesion. 3. Moderate ethmoid sinus mucosal thickening. Electronically signed by: John Woodson M.D. 06/27/2017 9:39 AM Dictated Date/Time: 06/27/2017 9:32 AM
--- NOTE | 2017-06-27 09:45 | DIAGNOSTIC IMAGING REPORT ---
CHEST ONE VIEW PORTABLE CLINICAL HISTORY: Stroke symptoms. COMPARISON STUDY: Chest radiograph April 05, 2017. FINDINGS: Anterior cervical spine fusion is incidentally noted. No pneumothorax or pleural effusion is present. There is no consolidation to suggest pneumonia. Cardiomediastinal silhouette is stable. There is no evidence of pulmonary edema. The appearance of the chest is unchanged. IMPRESSION: No acute cardiopulmonary findings. Electronically signed by: John Woodson M.D. 06/27/2017 9:43 AM Dictated Date/Time: 06/27/2017 9:42 AM
[2017-06-27 09:54] LABS: BASO % 0.1 %; BASO ABS # 0.01 K/uL (0-0.2); COMPLETE YES; EOS % 1.9 %; HEMATOCRIT 44.5 % (42-52); IG% 0.1 %; LYMPH % 25.3 %; LYMPH ABS # 2.14 K/uL (1.2-3.4); MEAN CELL VOLUME 85.4 fL (80-100); MEAN CORPUSCULAR HEMOGLOBIN 27.6 pg (25-34); MEAN CORPUSCULAR HGB CONC 32.4 g/dl (32-36); MEAN PLATELET VOLUME 8.9 fL (7.4-10.4); MONO % 7.2 %; NEUT % 65.4 %; PLATELET COUNT 274 K/uL (130-400); RED BLOOD COUNT 5.21 M/uL (4.7-6.1); WHITE BLOOD COUNT 8.45 K/uL (4.8-10.8)
[2017-06-27] MEDS ORDERED: SENN-61 PO (09:57)
[2017-06-27] MEDS ORDERED: ATRIN NAE (09:57)
[2017-06-27] MEDS ORDERED: TEST5GEL TOP (09:58)
[2017-06-27 10:04] LABS: PROTHROMBIN TIME (PATIENT) 10.4 SECONDS (9.0-12.0)
[2017-06-27 10:15] LABS: URINE APPEARANCE CLEAR (CLEAR); URINE BILIRUBIN NEG (NEG); URINE COLOR YELLOW; URINE NITRITE NEG (NEG); URINE PH 6.5 (4.5-7.5); URINE SPECIFIC GRAVITY 1.013 (1.000-1.030); UROBILINOGEN NEG (NEG); ZZUR CULT IF INDIC CLEAN CATCH NO
[2017-06-27 10:15] LABS: BLOOD UREA NITROGEN 25 mg/dl (7-18); CARBON DIOXIDE 30 mmol/L (21-32); CHLORIDE 106 mmol/L (98-107); CREATININE 0.83 mg/dl (0.60-1.40); GLUCOSE 92 mg/dl (70-99); POTASSIUM 3.8 mmol/L (3.5-5.1); SODIUM 142 mmol/L (136-145)
[2017-06-27 10:16] LABS: MANUAL MICROSCOPIC REQUIRED? NO; REVIEW REQ? NO
[2017-06-27 10:20] LABS: CKMB/CK RATIO 1.4 (0-3.0)
[2017-06-27] MEDS ORDERED: PHARMACIST DISCHARGE MED REC CONSULT PRN (12:30)
[2017-06-27] MEDS ORDERED: OXYCODONE/ACETAMINOPHEN 10/325MG TAB PO ONE (12:30)
[2017-06-27] MEDS ORDERED: CLOB1OIN2 TOP (12:41)
[2017-06-27] MEDS ORDERED: CLC100X PO (12:41)
[2017-06-27] MEDS ORDERED: MENT5PAD4 EXT (12:41)
[2017-06-27] MEDS ORDERED: ATOR-26 PO (12:41)
[2017-06-27] MEDS ORDERED: ASPI-391 PO (12:41)
[2017-06-27] MEDS ORDERED: BACL1TAB PO (12:41)
[2017-06-27] MEDS ORDERED: MULT-845 PO (12:41)
[2017-06-27] MEDS ORDERED: SIME80CH PO (12:41)
[2017-06-27] MEDS ORDERED: MENTHOL EXT PRN (12:45)
[2017-06-27] MEDS ORDERED: SIMETHICONE 80 MG CHEW PO PRN (12:45)
[2017-06-27] MEDS ORDERED: ASPIRIN ACETAMINOPHEN CAFFEINE PO SCH (12:45)
[2017-06-27] MEDS ORDERED: MoRPHine SULFATE 4 MG/ML 1 ML CARP\\VIAL IV SCH (13:15)
[2017-06-27 14:04] LABS: ESTIMATED AVERAGE GLUCOSE 128 mg/dl; HA1C FLAG Normal (Normal)
--- NOTE | 2017-06-27 14:19 | History and Physical ---
History & Physical Date & Time of Service: Jun 27, 2017 at 12:51 Chief Complaint: Stroke?? Primary Care Physician: Johnathan Rain III, M.D. 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 Patient reports recovering well from surgery. Denies recent illness. Patient was feeling normally when he awoke overnight at 2 :30 am, then awoke at 8 am with lightheadedness, inability to walk in a straight line, and speech difficulty. Patient states he had difficulty getting words out. His brother at bedside noticed his speech was slurred over the phone earlier, which is now resolved. Patient called his father who drove him to the ED. Patient states symptoms are resolved at present. Has ambulated to restroom in ER without issues. Pt reports symptoms were similar to presentation on prior hospitalization in 2013 for TIA. No facial droop per family. He was able to eat this morning without swallowing difficulty. Denies syncope, headache, vision change, focal numbness or weakness. Has chronic neck pain for which he takes chronic opioids, currently rated 8/10. No radiation down the UE. No recent injury, however states positioning for last outpatient MRI exacerbated his pain. Has IBS with chronic constipation- last BM yesterday. Denies fever, chills , URI symptoms, cough, SOB, chest pain, abdominal pain, N/V, dysuria, frequency. Denies recent medication changes except for addition of stool softener. Denies hx of arrhythmia or DM. 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 (13) Spondylosis, cervical Status: Chronic (14) Tonsillectomy Status: Resolved Surgical Problems: (1) H/O elbow surgery Status: Chronic (2) S/P Achilles tendon repair Status: Chronic (3) S/P cervical spinal fusion Permanent Comment: 1999 Status: Chronic (4) S/P nasal septoplasty Status: Chronic (5) S/p removal of turbinate bones Status: Chronic (6) S/P shoulder surgery Status: Chronic (7) S/P tonsillectomy and adenoidectomy Status: Chronic (8) S/P UPPP (uvulopalatopharyngoplasty) Status: Chronic (9) Status post transsphenoidal pituitary resection Permanent Comment: 04/11/17 at [facility] [place] Status: Chronic Family History Hypertension FATHER MOTHER Social History Smoking Status: Never Smoker Alcohol Use: none Drug Use: none Marital Status: single Housing status: lives alone Allergies Coded Allergies: No Known Allergies (Unverified , 05/17/17) Home Medications Scheduled Amitriptyline Hcl (Elavil), 75 MG PO HS Amlodipine (Norvasc), 5 MG PO QAM Szljsuh-Tymerpavcxpoy-Mwfrrdja (Excedrin Extra Strength), 2 TABS PO UD Atenolol (Tenormin), 25 MG PO BID Atorvastatin (Lipitor), 80 MG PO DAILY Clobetasol Propionate (Temovate), 1 APPLN TOP BID Dicyclomine Hcl (Dicyclomine Hcl), 10 MG PO TID Diphenhydramine-Acetaminophen (Excedrin Pm), 2 TABS PO HS Docusate Sodium (Docusate Sodium), 100 MG PO BID Gabapentin (Neurontin), 400 MG PO TID Hydrocortisone (Cortef), 10 MG PO QAM Levothyroxine Sodium (Levothyroxine Sodium), 75 MCG PO QAM Lubiprostone (Amitiza), 24 MCG PO DAILY Morphine Sulfate (Morphine Sulfate Er), 30 MG PO BID Multiple Vitamins W/ Minerals (Centrum Silver Adult 50+), 1 TAB PO DAILY Omeprazole (Prilosec), 40 MG PO DAILY Senna (Senokot), 2 TABS PO DAILY Tamsulosin HCl (Tamsulosin HCl), 0.4 MG PO DAILY Scheduled PRN Baclofen (Lioresal), 10 MG PO TID PRN for Muscle Spasms Menthol (Topical Analgesic) (Icy Hot Patch), 1 PATCH EXT DAILY PRN for Pain Oxycodone/Acetaminophen 10MG/325MG (Percocet 10MG/325MG), 1 TAB PO Q4H PRN for Pain Promethazine HCl (Promethazine HCl), 25 MG PO Q6H PRN for Nausea Simethicone (Gas-X), 80 MG PO UD PRN for gas Review of Systems Ten symptoms reviewed and negative except as noted in HPI. Physical Exam Vital Signs Date Time Temp Pulse Resp B/P (MAP) Pulse Ox O2 Delivery O2 Flow Rate FiO2 06/27/17 11:33 69 16 153/85 99 Room Air 06/27/17 09:39 68 18 145/72 99 Room Air 06/27/17 09:11 70 06/27/17 08:55 99 Room Air 06/27/17 08:54 36.4 72 18 146/76 99 Room Air General Appearance: WD/WN, no apparent distress, + pertinent finding (pleasant alert 62 year old male, lying in bed, father and brother at bedside) Head: normocephalic, atraumatic Eyes: normal inspection, PERRL, EOMI ENT: hearing grossly normal, + pertinent finding (s/p uvula resection) Neck: supple, no carotid bruits, trachea midline, + pertinent finding (no cervical spinal point tenderness or cervical paraspinal muscle tenderness. ) Respiratory/Chest: lungs clear, normal breath sounds, no respiratory distress, no accessory muscle use Cardiovascular: regular rate, rhythm, no murmur Abdomen/GI: normal bowel sounds, non tender, soft Extremities/Musculoskelatal: no calf tenderness, no pedal edema Neurologic/Psych: chute tender II-XII nml as tested (no dysarthria. facial movements symmetric.), no motor/sensory deficits (motor 5/5 all extremities. sensation to light touch intact all extremities.), alert, normal mood/affect, normal reflexes (normal patellar reflexes), oriented x 3, + pertinent finding (no pronator drift. finger to nose intact bilaterally. gait is normal on ambulation across the room. ) Skin: normal color, warm/dry Diagnostics Laboratory Results Results Past 24 Hours Test 06/27/17 09:08 06/27/17 09:12 06/27/17 10:05 06/27/17 12:25 Range/Units White Blood Count 8.45 4.8-10.8 K/uL Red Blood Count 5.21 4.7-6.1 M/uL Hemoglobin 14.4 14.0-18.0 g/dL Hematocrit 44.5 42-52 % Mean Corpuscular Volume 85.4 80-100 fL Mean Corpuscular Hemoglobin 27.6 25-34 pg Mean Corpuscular Hemoglobin Concent 32.4 32-36 g/dl Platelet Count 274 130-400 K/uL Mean Platelet Volume 8.9 7.4-10.4 fL Neutrophils (%) (Auto) 65.4 % Lymphocytes (%) (Auto) 25.3 % Monocytes (%) (Auto) 7.2 % Eosinophils (%) (Auto) 1.9 % Basophils (%) (Auto) 0.1 % Neutrophils # (Auto) 5.52 1.4-6.5 K/uL Lymphocytes # (Auto) 2.14 1.2-3.4 K/uL Monocytes # (Auto) 0.61 0.11-0.59 K/uL Eosinophils # (Auto) 0.16 0-0.5 K/uL Basophils # (Auto) 0.01 0-0.2 K/uL RDW Standard Deviation 43.8 36.4-46.3 fL RDW Coefficient of Variation 14.0 11.5-14.5 % Immature Granulocyte % (Auto) 0.1 % Immature Granulocyte # (Auto) 0.01 0.00-0.02 K/uL Prothrombin Time 10.4 9.0-12.0 SECONDS Prothromb Time International Ratio 1.0 0.9-1.1 Activated Partial Thromboplast Time 26.8 21.0-31.0 SECONDS Partial Thromboplastin Ratio 1.0 Sodium Level 142 136-145 mmol/L Potassium Level 3.8 3.5-5.1 mmol/L Chloride Level 106 98-107 mmol/L Carbon Dioxide Level 30 21-32 mmol/L Anion Gap 6.0 3-11 mmol/L Blood Urea Nitrogen 25 7-18 mg/dl Creatinine 0.83 0.60-1.40 mg/dl Est Creatinine Clear Calc Drug Dose 92.3 ml/min Estimated GFR () 109.3 Estimated GFR (Non- 94.3 BUN/Creatinine Ratio 30.0 10-20 Random Glucose 92 70-99 mg/dl Calcium Level 9.0 8.5-10.1 mg/dl Total Creatine Kinase 121 39-308 U/L Creatine Kinase MB 1.7 0.5-3.6 ng/ml Creatine Kinase MB Ratio 1.4 0-3.0 Troponin I < 0.015 0-0.045 ng/ml Bedside Glucose 94 70-99 mg/dl Urine Color YELLOW Urine Appearance CLEAR CLEAR Urine pH 6.5 4.5-7.5 Urine Specific [place] 1.013 1.000-1.030 Urine Protein NEG NEG Urine Glucose (UA) NEG NEG Urine Ketones NEG NEG Urine Occult Blood NEG NEG Urine Nitrite NEG NEG Urine Bilirubin NEG NEG Urine Urobilinogen NEG NEG Urine Leukocyte Esterase NEG NEG Diagnostic Radiology CT OF THE HEAD WITHOUT CONTRAST CLINICAL HISTORY: Stroke. Dizziness. Difficulty speaking. COMPARISON STUDY: Head CT T June 15, 2014 and MRI the brain June 16, 2014. CT DOSE: 614.27 mGy.cm TECHNIQUE: Helical axial images of the head were obtained without IV contrast. Automated exposure control was utilized for the study. A dose lowering technique was utilized adhering to the principles of ALARA. FINDINGS: No acute intracranial hemorrhage, midline shift or mass effect is present. Brain findings normal. Basilar cisterns are patent. There are no extra-axial collections. Ventricular system is normal. There are no CT findings to suggest acute dural sinus thrombosis or acute territorial infarct. Note is made of interval postsurgical findings within the sinuses and sellar/suprasellar region suggestive of a transsphenoidal resection of a sellar lesion. Expected fat is noted within the operative bed. A 1.9 x 1.1 cm soft tissue density is noted within the right aspect of the operative bed, projecting over the superior aspect of the right sphenoid sinus/sellar region. No significant calvarial abnormalities are present. IMPRESSION: 1. No acute intracranial findings. 2. Findings consistent with interval transsphenoidal resection of a sellar lesion,, suboptimally assessed by CT. 1.9 x 1.1 cm soft tissue density within the right aspect of the operative bed could reflect postsurgical change or recurrent/residual lesion. 3. Moderate ethmoid sinus mucosal thickening. CHEST ONE VIEW PORTABLE CLINICAL HISTORY: Stroke symptoms. COMPARISON STUDY: Chest radiograph April 05, 2017. FINDINGS: Anterior cervical spine fusion is incidentally noted. No pneumothorax or pleural effusion is present. There is no consolidation to suggest pneumonia. Cardiomediastinal silhouette is stable. There is no evidence of pulmonary edema. The appearance of the chest is unchanged. IMPRESSION: No acute cardiopulmonary findings. EKG NSR, nonspecific T wave abnormality in III and aF, no ST abnormality, no ectopy Impression Assessment and Plan DIZZINESS/ ATAXIA/ SPEECH DIFFICULTY- resolved History of possible TIA in May 2014 with similar presentation- workup showed CT head negative, MRI negative for stroke x 2, MRA head and neck negative, carotid doppler- no evidence of significant stenosis, echo- LVH and grade II diastolic dysfunction, neurology eval by Dr. Duff ? TIA, rule out CVA, ddx also includes medication side effects (on chronic opioids, gabapentin, amitriptyline, however no recent change to these meds) Presented outside of tPA window Initial CT head- no acute intracranial findings, + "findings consistent with interval transsphenoidal resection of a sellar lesion, suboptimally assessed by CT. 1.9 x 1.1 cm soft tissue density within the right aspect of the operative bed could reflect postsurgical change or recurrent/residual lesion." Check MRI brain combo including attention to sella, MRA head and neck, echo with bubble study, telemetry monitoring Continue aspirin (Excedrin extra strength- took 2 tabs this morning) and atorvastatin 80 mg daily Check orthostatic vitals, follow up drug screen Permissive hypertension if any evidence of stroke seen on imaging, otherwise will continue home antihypertensives PT, OT, speech consults, neuro checks Consult neurology- discussed with Dr. Herrera, appreciate input PITUITARY MACROADENOMA s/p resection of gonadotropin adenoma 04/11/17 at [facility] [place] PANHYPOPITUITARISM CT head showed postsurgical change vs. recurrent/residual lesion F/u MRI brain with attention to sella Continue hydrocortisone and levothyroxine Not taking Androderm patch due to cost HYPERTENSION BP 140s-150s Continue home antihypertensives if no evidence of CVA on imaging HYPERLIPIDEMIA Continue atorvastatin CHRONIC NECK PAIN/ CERVICAL POST-LAMINECTOMY SYNDROME IV morphine x 1 prior to MRI Continue chronic opioids prescribed by PCP ([facility] drug database queried, no issues identified) Continue gabapentin and amitriptyline Follows with [facility] pain management for injections IBS Continue home meds GERD Continue PPI BPH Continue Flomax DVT PROPHYLAXIS Lovenox SQ DISPO Admission telemetry Follows with Dr. Rain for primary care Patient seen in collaboration with Dr. Ware. Please see his addendum. VTE Prophylaxis VTE Risk Assessment Done? Y/N: Yes Risk Level: Moderate Note ATTENDING ADDENDUM Record reviewed. Patient interviewed and examined in ED ~ 13:10. Care coordinated with Layla Warren PA-C. Please refer to her documentation for patient's history. Briefly, 62 YO male with history of hypertension, dyslipidemia, possible TIA in past, and pituitary adenoma (s/p resection). Episode of dysarthria, lightheadedness, unsteady gait this morning upon awakening. Last known well several hours prior. No associated headache, chest pain, palpitations. Came to ED for evaluation; had some mild dysarthria upon arrival. Symptoms lasted for a few hours, essentially resolved by the time of admission. No new medications. Did not miss any doses of hydrocortisone or other meds. EXAM: General- no distress VS- as noted HEENT- anicteric Neck- supple; carotids 2/2 without bruits Lungs- clear Heart- RRR, no murmur, gallop, rub Abdomen- + BS, soft, nontender; no palpable masses or hepatosplenomegaly Extremities- no pretibial edema or calf tenderness; peripheral pulses intact Neuro- alert, oriented; PERRL, EOMI; no facial palsy; no dysarthria; tongue midline; motor strength upper and lower extremities 5/5; patellar DTR's 2/2 bilat; plantar reflexes downgoing bilat; sensation to light touch in lower extremities intact DATA: BUN 25. Other lab studies as noted. EKG performed at 09:16 reviewed and demonstrated NSR at 66 / minute, no acute ST or T-wave abnormalities. CT head per Radiology: no acute findings, postsurgical findings in sellar / suprasellar region, moderate thickening of ethmoid sinus mucosa. ASSESSMENT AND PLAN: Dysarthria, lightheadedness, unsteady gain lasting for a few hours. Neuro exam in ED unremarkable. CT head negative for bleed, other acute finding. Possible TIA. Monitor neuro status. Monitor for arrhythmias. Check MRI. Consult Neuro. Check orthostatic vital signs. Please refer to [facility] Warren's documentation for discussion of other issues. Johnathan Ware MD .
--- NOTE | 2017-06-27 14:46 | DIAGNOSTIC IMAGING REPORT ---
MRA HEAD WITHOUT CONTRAST CLINICAL HISTORY: 62 years-old Male presenting with stroke, dizziness, difficulty speaking, prior stroke in 2013. TECHNIQUE: MR angiography of the head was performed without the use of intravenous contrast using 3-D [id number] technique. 3-D volumetric and/or maximum intensity projection (MIP) images were subsequently reconstructed for review. IV contrast: None.. COMPARISON: 06/15/2014. FINDINGS: Anterior circulation including the carotid termini, anterior and middle cerebral arteries, and anterior communicating artery patent. Left dominant vertebral artery. Both vertebral arteries contribute to the vertebrobasilar system. Posterior circulation including the superior cerebellar and posterior cerebral arteries patent. Neither posterior communicating artery is visualized, either aplastic or hypoplastic. No significant stenosis, aneurysm, or occlusion. Visualized brain parenchyma within normal limits. Opacification of the sphenoid sinuses with inspissated material. IMPRESSION: 1. No significant stenosis, aneurysm, or focal vessel occlusion. Electronically signed by: Jorge Hart M.D. 06/27/2017 2:45 PM Dictated Date/Time: 06/27/2017 2:40 PM
--- NOTE | 2017-06-27 15:00 | DIAGNOSTIC IMAGING REPORT ---
MRA NECK COMBO HISTORY: Mental status change Stroke TECHNIQUE: [id number] and gadolinium-enhanced MRA of the neck was performed both before and after the intravenous administration of contrast. All measurements were calculated based on NASCET criteria. COMPARISON STUDY: 06/15/2014 FINDINGS: Limited exam due to considerable patient motion. There is no significant stenosis, occlusion, or dissection identified within the bilateral common carotid, internal carotid, or vertebral arteries. Minimal findings could easily be missed given the degree of motion artifact. IMPRESSION: 1. Limited exam due to considerable patient motion. 2. No significant stenotic process within these limitations. The above report was generated using voice recognition software. It may contain grammatical, syntax or spelling errors. Electronically signed by: Rich Pedro M.D. 06/27/2017 2:59 PM Dictated Date/Time: 06/27/2017 2:57 PM
--- NOTE | 2017-06-27 15:06 | DIAGNOSTIC IMAGING REPORT ---
MRI OF THE BRAIN WITH AND WITHOUT CONTRAST, INCLUDING PITUITARY CLINICAL HISTORY: Dizziness, difficulty speaking. Evaluate for cerebrovascular accident. COMPARISON STUDY: MRI of the brain June 15, [address] performed earlier today. TECHNIQUE: Utilizing a 1.5 Angie magnet and dedicated coil, multiplanar, multiecho imaging of the brain was performed pre and postcontrast administration with thin cut imaging through the sellar region to evaluate the pituitary gland. Injection of 7.5 cc of Gadavist IV was uneventful. FINDINGS: There are no areas of restricted diffusion. The ventricular system is normal. The basilar cisterns are patent. There are no extra-axial collections. No acute intracranial hemorrhage, midline shift or mass effect is present. Flow-voids for the major intracranial vessels are present. There are no areas of significant signal abnormality within the brain parenchyma. Calvarial signal is maintained. Note is made of postsurgical findings consistent with transsphenoidal resection of a sellar lesion. As expected, there is fat packing within the operative bed. There is an air fluid level within the sphenoid sinus which contains T1 hyperintense material without associated enhancement. There is moderate mucosal thickening of the ethmoid sinuses. There is minimal mucosal thickening of the maxillary sinuses. There is mild enhancing soft tissue along the anterior aspect of the operative bed that measures 1.7 x 0.5 cm and is shown best on coronal thin cut images 3 of 14. No additional sites of enhancement are present on this examination. The right sellar lesion shown on exam of October 12, 2013 has been resected. IMPRESSION: 1. No acute intracranial findings. No evidence of acute or subacute infarction. 2. Findings consistent with transsphenoidal resection of pituitary lesion. Minimal enhancing soft tissue along the anterior superior aspect of the operative bed, located anterior to the pituitary gland that measures 1.7 x 0.5 cm. This could reflect postsurgical change or residual adenoma and can be assessed on subsequent studies. 3. T1 hyperintense material within the sphenoid sinus which could reflect blood products or proteinaceous/inspissated secretions. 4. Moderate mucosal thickening of the ethmoid sinuses. Electronically signed by: John Woodson M.D. 06/27/2017 3:05 PM Dictated Date/Time: 06/27/2017 2:46 PM
[2017-06-27] MEDS: OXYCODONE/ACETAMINOPHEN 10/325MG TAB PO PRN ×3 (15:09→23:59)
[2017-06-27 15:30] VITALS: BP 158/83; PULSE 84; TEMP 36.8; O2SAT 95; Ht 175.3 cm; Wt 75.0 kg
--- NOTE | 2017-06-27 15:43 | Neurology Consultation ---
Neurology Consultation Date of Consultation: Jun 27, 2017. Attending Physician: Lewis Malloy DO Primary Care Physician: Johnathan Rain III, M.D. 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) , chronic neck pain (treated with trigger point injections and opioids at [facility] pain [facility]). He presented to the ED with stroke like symptoms. He was feeling normally when he awoke overnight at 2:30 am, then awoke at 8 am with lightheadedness, inability to walk in a straight line, and difficulty getting words out. Symptoms have resolved. He had ambulated to the bathroom in the ED without difficulty. His symptoms where similar in 2013 when he had a TIA. No facial droop per family. He was able to eat this morning without swallowing difficulty. Denies syncope, headache, vision change, focal numbness or weakness, falls. Has chronic neck pain for which he takes chronic opioids. denies hx of arrhythmia or DM. Past Medical/Surgical History Medical Problems: (1) Constipation Status: Acute (2) Encounter for Sweeney catheter removal Status: Acute (3) Neck pain on left side Status: Acute (4) Neck pain, chronic Status: Acute (5) Pain of cervical spine Status: Acute (6) TIA (transient ischemic attack) Status: Acute (7) Urinary retention Status: Acute Social History Smoking Status: Never smoker Alcohol Use: none Drug Use: none Marital Status: single Housing Status: lives alone Allergies Coded Allergies: No Known Allergies (Unverified , 05/17/17) Current Inpatient Medications Current Inpatient Medications Medications (Trade) Dose Ordered Sig/Bruce Route Start Time Stop Time Status Last Admin Dose Admin Sodium Chloride 1,000 ml @ 100 mls/hr Q10H IV 06/27/17 09:07 07/27/17 09:06 Enoxaparin Sodium (Lovenox Inj) 40 mg Q24H SC 06/27/17 12:30 07/27/17 12:29 UNV Ondansetron HCl (Zofran Inj) 4 mg Q6H PRN IV 06/27/17 12:30 07/27/17 12:29 Miscellaneous Information (Pharmacist Discharge Med Rec Consult) 1 ea UD PRN N/A 06/27/17 12:30 07/27/17 12:29 Amitriptyline HCl (Elavil Tab) 75 mg HS PO 06/27/17 21:00 07/27/17 20:59 UNV Atenolol (Tenormin Tab) 12.5 mg BID PO 06/27/17 21:00 07/27/17 20:59 UNV Atorvastatin Calcium (Lipitor Tab) 80 mg DAILY PO 06/28/17 09:00 07/28/17 08:59 UNV Baclofen (Lioresal Tab) 10 mg TID PRN PO 06/27/17 12:45 07/27/17 12:44 Dicyclomine HCl (Bentyl Cap) 10 mg TID PO 06/27/17 14:00 07/27/17 13:59 UNV Docusate Sodium (coLACE CAP) 100 mg BID PO 06/27/17 21:00 07/27/17 20:59 UNV Gabapentin (Neurontin Cap) 400 mg TID PO 06/27/17 14:00 07/27/17 13:59 UNV Hydrocortisone (Cortef Tab) 10 mg QAM PO 06/28/17 09:00 07/28/17 08:59 UNV Levothyroxine Sodium (Synthroid Tab) 75 mcg DAILYBB PO 06/28/17 06:00 07/28/17 06:59 UNV Multivitamins/ Minerals (Multivitamin W/ Minerals Tab) 1 tab DAILY PO 06/28/17 09:00 07/28/17 08:59 UNV Oxycodone/ Acetaminophen (Percocet 10-325MG Tab) 1 tab Q4H PRN PO 06/27/17 12:45 07/11/17 12:44 06/27/17 15:09 1 TAB Promethazine HCl (Phenergan Tab) 25 mg Q6H PRN PO 06/27/17 12:45 07/27/17 12:44 Senna (Senokot Tab) 17.2 mg DAILY PO 06/28/17 09:00 07/28/17 08:59 UNV Simethicone (Mylicon Chew Tab) 80 mg QID PRN PO 06/27/17 12:45 07/27/17 12:44 Tamsulosin HCl (Flomax Cap) 0.4 mg DAILY PO 06/28/17 09:00 07/28/17 08:59 UNV Non-Formulary Medication (Wowzwqt-Ncvnntqidhnox-Dcxjzwaq (Excedrin Extra Strength)) 2 tabs UD PO 06/27/17 12:45 07/27/17 12:44 UNV Non-Formulary Medication (Clobetasol Propionate (Temovate)) 1 appln BID TOP 06/27/17 21:00 07/27/17 20:59 UNV Non-Formulary Medication (Diphenhydramine-Acetaminophen (Excedrin Pm)) 2 tabs HS PO 06/27/17 21:00 07/27/17 20:59 UNV Non-Formulary Medication (Lubiprostone (Amitiza)) 24 mcg DAILY PO 06/28/17 09:00 07/28/17 08:59 UNV Non-Formulary Medication (Morphine Sulfate (Morphine Sulfate Er)) 30 mg BID PO 06/27/17 21:00 07/27/17 20:59 UNV Pantoprazole Sodium (Protonix Tab) 40 mg QAM PO 06/28/17 09:00 07/28/17 08:59 UNV Morphine Sulfate (MoRPHine SULFATE INJ) 4 mg TODAY@1315 IV 06/27/17 13:15 06/27/17 16:00 06/27/17 13:13 4 MG Physical Exam Vital Signs (Past 24 Hrs): Date Time Temp Pulse Resp B/P (MAP) Pulse Ox O2 Delivery O2 Flow Rate FiO2 06/27/17 13:16 84 18 165/84 97 06/27/17 11:33 69 16 153/85 99 Room Air 06/27/17 09:39 68 18 145/72 99 Room Air 06/27/17 09:11 70 06/27/17 08:55 99 Room Air 06/27/17 08:54 36.4 72 18 146/76 99 Room Air Physical Exam: Constitutional: appearance nourished, healthy and normal Ears, Nose, Mouth and Throat: mucous membranes moist, no injection and skin normal, eyes normal Cardiovascular: normal S-1 and S-2 and regular rate and rhythm Respiratory: clear to auscultation (CTA) and no rales, rhonchi or wheeze Musculoskeletal: no peripheral edema and good distal pulses Skin: no stigmata of neurocutaneous disease noted and normal and intact Eyes: extraocular muscles intact (EOMI) and pupils equal, round and reactive to light (PERRL) NEUROLOGIC EXAMINATION: Mental status: Alert and interactive Oriented to full date and location Oriented to person, able to say no ifs ands or buts, stick out tongue, point to ceiling, close eyes Speech fluent with no evidence of aphasia Cranial Nerves smile eye brow raise symmetric tongue midline Reflexes: Deep tendon reflexes were symmetrical and graded 2/5. Plantar responses were flexor. Sensory: no sensory deficits Coordination: Romberg absent Gait/Stance: Posture normal. Gait normal: with steady with steps, tandem unable to walk heel to toe Motor: Negative for pronator drift of out stretched arms with eyes closed. Strength: Normal - 5/5 all extremities Laboratory Results Past 24 Hours: 06/27/17 09:08 Red Blood Count 5.21, Mean Corpuscular Volume 85.4, Mean Corpuscular Hemoglobin 27.6, Mean Corpuscular Hemoglobin Concent 32.4, Mean Platelet Volume 8.9, Neutrophils (%) (Auto) 65.4, Lymphocytes (%) (Auto) 25.3, Monocytes (%) (Auto) 7.2, Eosinophils (%) (Auto) 1.9, Basophils (%) (Auto) 0.1, Neutrophils # (Auto) 5.52, Lymphocytes # (Auto) 2.14, Monocytes # (Auto) 0.61, Eosinophils # (Auto) 0.16, Basophils # (Auto) 0.01 06/27/17 09:08 Test 06/27/17 09:08 06/27/17 09:12 06/27/17 10:05 White Blood Count 8.45 K/uL (4.8-10.8) Red Blood Count 5.21 M/uL (4.7-6.1) Hemoglobin 14.4 g/dL (14.0-18.0) Hematocrit 44.5 % (42-52) Mean Corpuscular Volume 85.4 fL (80-100) Mean Corpuscular Hemoglobin 27.6 pg (25-34) Mean Corpuscular Hemoglobin Concent 32.4 g/dl (32-36) Platelet Count 274 K/uL (130-400) Mean Platelet Volume 8.9 fL (7.4-10.4) Neutrophils (%) (Auto) 65.4 % Lymphocytes (%) (Auto) 25.3 % Monocytes (%) (Auto) 7.2 % Eosinophils (%) (Auto) 1.9 % Basophils (%) (Auto) 0.1 % Neutrophils # (Auto) 5.52 K/uL (1.4-6.5) Lymphocytes # (Auto) 2.14 K/uL (1.2-3.4) Monocytes # (Auto) 0.61 K/uL (0.11-0.59) Eosinophils # (Auto) 0.16 K/uL (0-0.5) Basophils # (Auto) 0.01 K/uL (0-0.2) RDW Standard Deviation 43.8 fL (36.4-46.3) RDW Coefficient of Variation 14.0 % (11.5-14.5) Immature Granulocyte % (Auto) 0.1 % Immature Granulocyte # (Auto) 0.01 K/uL (0.00-0.02) Prothrombin Time 10.4 SECONDS (9.0-12.0) Prothromb Time International Ratio 1.0 (0.9-1.1) Activated Partial Thromboplast Time 26.8 SECONDS (21.0-31.0) Partial Thromboplastin Ratio 1.0 Anion Gap 6.0 mmol/L (3-11) Est Creatinine Clear Calc Drug Dose 92.3 ml/min Estimated GFR () 109.3 Estimated GFR (Non- 94.3 BUN/Creatinine Ratio 30.0 (10-20) Estimated Average Glucose 128 mg/dl Hemoglobin A1c 6.1 % (4.5-5.6) Calcium Level 9.0 mg/dl (8.5-10.1) Total Creatine Kinase 121 U/L (39-308) Creatine Kinase MB 1.7 ng/ml (0.5-3.6) Creatine Kinase MB Ratio 1.4 (0-3.0) Troponin I < 0.015 ng/ml (0-0.045) Bedside Glucose 94 mg/dl (70-99) Urine Color YELLOW Urine Appearance CLEAR (CLEAR) Urine pH 6.5 (4.5-7.5) Urine Specific [place] 1.013 (1.000-1.030) Urine Protein NEG (NEG) Urine Glucose (UA) NEG (NEG) Urine Ketones NEG (NEG) Urine Occult Blood NEG (NEG) Urine Nitrite NEG (NEG) Urine Bilirubin NEG (NEG) Urine Urobilinogen NEG (NEG) Urine Leukocyte Esterase NEG (NEG) Imaging MRI with and without contrast- No acute intracranial findings. No evidence of acute or subacute infarction. Findings consistent with transsphenoidal resection of pituitary lesion. Minimal enhancing soft tissue along the anterior superior aspect of the operative bed, located anterior to the pituitary gland that measures 1.7 x 0.5 cm. This could reflect postsurgical change or residual adenoma and can be assessed on subsequent studies. T1 hyperintense material within the sphenoid sinus which could reflect blood products or proteinaceous/inspissated secretions. Moderate mucosal thickening of the ethmoid sinuses. MRA brain- No significant stenosis, aneurysm, or focal vessel occlusion. MRA neck- Limited exam due to considerable patient motion. No significant stenotic process within these limitations. Impression 62 year old male s/p dizzy, staggering gait, slurred speech, word finding issues -no resolved Plan 1. no ischemic issues on MRI 2. MRA no vascular issues neck or brain 3. optimize blood pressure and lipids, DM 4. plavix 75 mg added start today 5. taking Excedrin with 81 mg aspirin continue 6. orthostatics for any possible issues with Cortef and blood pressure drops 7. sent MRI brain to [facility] for review 8. PT/OT dose no seem to have and current issues 9. follow in our office in 3-4 weeks neurology Wilma Montes PAC schedule I have seen and discussed above patient with Dr Wilma Herrera, neurology Pt seen and examined. Prior hx of similar episode deemed TIA. Recent pit adenoma surgery,(no xrt) was hypopit before surgery and has continued on supplementation. Pos [facility] stroke. Pt had vague lightheadedness, dysarthria and poss aphasia with nonunilateral gait ataxia without headache lasting 45 minutes. Exam is unremarkable, neg prov head manuevers, tremulous bl on FNF, but not dystaxia, gait, tandem, nml. Spell suspicious for TIA, localization unclear. Rec asa plus Plavix, echo, tele monitoring. Check orthostatics to assess replacement of steroids TSH JOHNNIE Herrera MD
[2017-06-27] MEDS ORDERED: CLOPIDOGREL BISULFATE 75 MG TAB PO ONE (16:45)
[2017-06-27] MEDS ORDERED: HYDROmorphone INJ 1 MG/ML SYR IV ONE (17:00)
[2017-06-27 17:47] VITALS: BP_SYST 115; BP_SYST 137; BP_SYST 147; BP_DIAS 75; BP_DIAS 78; PULSE 106; PULSE 99
[2017-06-27] MEDS: GABAPENTIN 400 MG CAP PO SCH ×2 (18:09→22:14)
[2017-06-27] MEDS: DICYCLOMINE HCL 10 MG CAP PO SCH ×2 (18:10→20:00)
[2017-06-27] MEDS: ENOXAPARIN 40 MG/0.4 ML SYR SC SCH (18:10)
[2017-06-27 19:00] VITALS: BP 156/78; PULSE 84; TEMP 36.8; O2SAT 99
[2017-06-27] MEDS: DOCUSATE SODIUM 100 MG CAP PO SCH (20:00)
[2017-06-27] MEDS: AMITRIPTYLINE HCL 25 MG TAB PO SCH (20:00)
[2017-06-27] MEDS: PROMETHAZINE HCL 25 MG TAB PO PRN (20:01)
[2017-06-27] MEDS: CLOBETASOL PROPIONATE 0.05% OINT 15 GM TUBE EXT SCH (20:04)
[2017-06-27] MEDS ORDERED: DIPHENHYDRAMINE ACETAMINOPHEN PO SCH (21:00)
[2017-06-27] MEDS: MoRPHine SULFATE CR 15 MG TAB (MS CONTIN) PO SCH ×2 (21:00→21:13)
[2017-06-27] MEDS ORDERED: HYDROmorphone INJ 0.5 MG/0.5 ML SYR IV ONE (21:26)
[2017-06-27] MEDS ORDERED: HYDROmorphone INJ 0.5 MG/0.5 ML SYR ONE (21:28)
[2017-06-27] MEDS ORDERED: LACTATED RINGER'S 1000ML 1,000 ML IV SCH (22:00)
[2017-06-27] MEDS: ONDANSETRON INJ 2 MG/ML 2 ML VIAL IV PRN (22:18)
[2017-06-27 23:56] VITALS: BP 137/64; PULSE 78; TEMP 36.6; O2SAT 100
[2017-06-28] VITALS (8 sets, daily range): BP systolic 118–162; BP diastolic 59–76; PULSE 66–97; TEMP 36.6–37.1; O2SAT 95–99
[2017-06-28] MEDS: BACLOFEN 10 MG TAB PO PRN ×2 (00:12→08:00)
[2017-06-28 00:54] LABS: BENZODIAZEPINE, URINE NEG (NEG); COCAINE,URINE NEG (NEG); PHENCYCLIDINE, URINE NEG (NEG)
[2017-06-28] MEDS: PROMETHAZINE HCL 25 MG TAB PO PRN (01:19)
[2017-06-28] MEDS: HYDROmorphone INJ 0.5 MG/0.5 ML SYR IV PRN ×3 (01:20→17:23)
[2017-06-28] MEDS ORDERED: HYDROmorphone INJ 1 MG/ML SYR IV ONE ×2 (02:15→12:00)
[2017-06-28] MEDS: OXYCODONE/ACETAMINOPHEN 10/325MG TAB PO PRN ×2 (04:50→15:38)
[2017-06-28] MEDS: ONDANSETRON INJ 2 MG/ML 2 ML VIAL IV PRN (04:52)
[2017-06-28] MEDS: LEVOTHYROXINE 75 MCG TAB PO SCH (06:18)
[2017-06-28 06:56] LABS: BASO % 0.2 %; BASO ABS # 0.02 K/uL (0-0.2); COMPLETE YES; EOS % 1.3 %; HEMATOCRIT 45.9 % (42-52); IG% 0.2 %; LYMPH ABS # 1.41 K/uL (1.2-3.4); MEAN CELL VOLUME 86.1 fL (80-100); MEAN CORPUSCULAR HEMOGLOBIN 27.6 pg (25-34); MEAN PLATELET VOLUME 8.8 fL (7.4-10.4); MONO % 4.9 %; NEUT % 78.4 %; PLATELET COUNT 238 K/uL (130-400); RED BLOOD COUNT 5.33 M/uL (4.7-6.1); WHITE BLOOD COUNT 9.43 K/uL (4.8-10.8)
[2017-06-28 07:29] LABS: CREATININE 0.77 mg/dl (0.60-1.40)
[2017-06-28 07:30] LABS: BUN/CREATININE RATIO 17.7 (10-20); CALCIUM 8.3 mg/dl (8.5-10.1); POTASSIUM 4.3 mmol/L (3.5-5.1)
[2017-06-28 07:35] LABS: CHOLESTEROL/HDL RATIO 3.3
[2017-06-28] MEDS: LUBIPROSTONE 8 MCG CAP PO SCH (08:00)
[2017-06-28] MEDS: DICYCLOMINE HCL 10 MG CAP PO SCH ×3 (08:00→20:16)
[2017-06-28] MEDS: PANTOprazole SOD 40 MG TAB PO SCH (08:00)
[2017-06-28] MEDS: HYDROCORTISONE 10 MG TAB PO SCH (08:00)
[2017-06-28] MEDS: DOCUSATE SODIUM 100 MG CAP PO SCH ×2 (08:00→20:16)
[2017-06-28] MEDS: SENNA 8.6 MG TAB PO SCH (08:01)
[2017-06-28] MEDS: TAMSULOSIN HCL 0.4 MG CAP PO SCH (08:01)
[2017-06-28] MEDS: CEROVITE ADV FORMULA TAB PO SCH (08:01)
[2017-06-28] MEDS: GABAPENTIN 400 MG CAP PO SCH ×3 (08:01→20:16)
[2017-06-28] MEDS: ATORVASTATIN 40 MG TAB PO SCH (08:02)
[2017-06-28] MEDS: AMLODIPINE BESYLATE 5 MG TAB PO SCH (08:02)
[2017-06-28] MEDS: CLOPIDOGREL BISULFATE 75 MG TAB PO SCH (08:02)
--- NOTE | 2017-06-28 08:36 | ECHOCARDIOGRAM REPORT ---
*NOTICE TO RECEIVING CONSTITUTION PARTY AGENCY This information is strictly Confidential and protected under [place] law. [place] law prohibits you from making any further disclosure of this information unless further disclosure is expressly permitted by the written consent of the person to whom it pertains or is authorized by law. A general authorization for the release of medical or other information is not sufficient for this purpose. Hospital accepts no responsibility if the information is made available to any other person, INCLUDING THE PATIENT. Interpretation Summary * Name: SURENDRA CHEN Study Date: 06/27/2017 03:11 PM BP: 153/85 mmHg * Patient Location: [facility] HR: 69 * : 1955 (M/d/yyyy) Gender: Male Height: 69 in * Age: 62 yrs Ethnicity: [place] Weight: 169 lb * Ordering Physician: Layla Warren * Referring Physician: Self, Referred * Performed By: Cheryl Coles RDCS * * Reason For Study: TIA * BSA: 1.9 m2 * No cardiac source of emboli noted. * -- Conclusions -- * The interatrial septum is intact with no evidence for an atrial septal defect. * Injection of contrast documented no interatrial shunt. * No cardiac source of emboli noted. * The left ventricle is normal in size. * Left ventricular systolic function is normal. * Ejection Fraction = 60-65%. * The right ventricular systolic function is normal. * No significant valvular pathology Procedure Details * A complete two-dimensional transthoracic echocardiogram was performed (2D, M-mode, Doppler and color flow Doppler). * A saline contrast injection was performed to assess for cardiac shunting. * The injection was performed through an intravenous line in the left arm. * The attending nurse who injected the saline contrast was Hans Taveras RN. * A total of 20 cc of agitated saline was given. Left Ventricle * The left ventricle is normal in size. * There is normal left ventricular wall thickness. * Ejection Fraction = 60-65%. * Left ventricular systolic function is normal. * The left ventricular wall motion is normal. Right Ventricle * The right ventricle is normal size. * The right ventricular systolic function is normal. Atria * The left atrial size is normal. * Right atrial size is normal. * The interatrial septum is intact with no evidence for an atrial septal defect. * Injection of contrast documented no interatrial shunt. Mitral Valve * The mitral valve anatomy is normal. * Significant mitral regurgitation is absent. Tricuspid Valve * The tricuspid valve anatomy is normal. * Significant tricuspid regurgitation is absent. Aortic Valve * The aortic valve is tricuspid. The leaflet thickness if normal. There is no aortic stenosis, and no significant insufficiency. * The aortic valve opens well. * There is no significant aortic regurgitation. Pulmonic Valve * The pulmonic valve is not well visualized. Great Vessels * The aortic root and proximal ascending aorta are normal sized. Pericardium/Pleural * There is no pericardial effusion. MMode 2D Measurements and Calculations IVSd 1.0 cm LVIDd 4.2 cm LVIDs 2.6 cm LVPWd 1.1 cm IVS/LVPW 0.96 FS 37.3 % EDV(Teich) 79.4 ml ESV(Teich) 25.7 ml EF(Teich) 67.7 % EDV(cubed) 75.1 ml ESV(cubed) 18.5 ml EF(cubed) 75.3 % LV mass(C)d 143.7 grams LV mass(C)dI 74.7 grams/m\S\2 SV(Teich) 53.7 ml SI(Teich) 27.9 ml/m\S\2 SV(cubed) 56.6 ml SI(cubed) 29.4 ml/m\S\2 Ao root diam 3.2 cm Ao root area 8.3 cm\S\2 ACS 2.2 cm LA dimension 2.9 cm asc Aorta Diam 3.4 cm LA/Ao 0.90 LVOT diam 2.0 cm LVOT area 3.3 cm\S\2 LVAd ap4 22.5 cm\S\2 LVLd ap4 7.4 cm EDV(MOD-sp4) 57.8 ml EDV(sp4-el) 57.8 ml LVAs ap4 13.0 cm\S\2 LVLs ap4 6.2 cm ESV(MOD-sp4) 24.3 ml ESV(sp4-el) 23.2 ml EF(MOD-sp4) 58.0 % EF(sp4-el) 59.9 % LVAd ap2 20.5 cm\S\2 LVLd ap2 7.3 cm EDV(MOD-sp2) 47.3 ml EDV(sp2-el) 48.4 ml LVAs ap2 11.8 cm\S\2 LVLs ap2 6.3 cm ESV(MOD-sp2) 18.6 ml ESV(sp2-el) 18.8 ml EF(MOD-sp2) 60.6 % EF(sp2-el) 61.1 % LVLd %diff -1.05 % EDV(MOD-bp) 52.5 ml LVLs %diff 2.0 % ESV(MOD-bp) 21.2 ml EF(MOD-bp) 59.7 % SV(MOD-sp4) 33.5 ml SI(MOD-sp4) 17.4 ml/m\S\2 SV(MOD-sp2) 28.6 ml SI(MOD-sp2) 14.9 ml/m\S\2 SV(MOD-bp) 31.3 ml SI(MOD-bp) 16.3 ml/m\S\2 SV(sp4-el) 34.6 ml SI(sp4-el) 18.0 ml/m\S\2 SV(sp2-el) 29.6 ml SI(sp2-el) 15.4 ml/m\S\2 Doppler Measurements and Calculations MV E max michael 75.7 cm/sec MV A max michael 73.7 cm/sec MV E/A 1.0 MV dec time 0.26 sec Ao V2 max 104.2 cm/sec Ao max PG 4.3 mmHg Ao max PG (full) 0.66 mmHg LA NENA(V,A) 3.0 cm\S\2 LA NENA(V,D) 3.0 cm\S\2 LV V1 max PG 3.7 mmHg LV V1 max 96.0 cm/sec PA V2 max 93.0 cm/sec PA max PG 3.5 mmHg PA acc slope 453.7 cm/sec\S\2 PA acc time 0.14 sec TR max michael 93.8 cm/sec PA pr(Accel) 18.0 mmHg
[2017-06-28] MEDS: CLOBETASOL PROPIONATE 0.05% OINT 15 GM TUBE EXT SCH ×2 (09:00→20:00)
[2017-06-28] MEDS: MoRPHine SULFATE CR 15 MG TAB (MS CONTIN) PO SCH ×2 (10:08→20:02)
--- NOTE | 2017-06-28 11:11 | Progress Note ---
Subjective Date of Service: Jun 28, 2017. Subjective Pt evaluation today including: conversation w/ patient, physical exam, lab review, review of studies, review of inpatient medication list Saw/examined the patient in room 238 His neurological symptoms have resolved He is now c/o neck pain, which is a chronic issue States he does not want to go home because of his neck pain Problem List Medical Problems: (1) Constipation Status: Acute (2) Encounter for Sweeney catheter removal Status: Acute (3) Neck pain on left side Status: Acute (4) Neck pain, chronic Status: Acute (5) Pain of cervical spine Status: Acute (6) TIA (transient ischemic attack) Status: Acute (7) Urinary retention Status: Acute Review of Systems Constitutional: No fever, No chills, No weakness Respiratory: No shortness of breath Cardiac: No chest pain Abdomen: No pain, No nausea, No vomiting, No diarrhea Musculoskeletal: + joint pain (cervical neck pain), + muscle pain Neurologic: No memory loss, No paralysis, No weakness, No numbness/tingling, No vertigo, No balance problems Medications Current Inpatient Medications Medications (Trade) Dose Ordered Sig/Bruce Route Start Time Stop Time Status Last Admin Dose Admin Enoxaparin Sodium (Lovenox Inj) 40 mg Q24H SC 06/27/17 18:00 07/27/17 17:59 06/27/17 18:10 40 MG Ondansetron HCl (Zofran Inj) 4 mg Q6H PRN IV 06/27/17 12:30 07/27/17 12:29 06/28/17 04:52 4 MG Miscellaneous Information (Pharmacist Discharge Med Rec Consult) 1 ea UD PRN N/A 06/27/17 12:30 07/27/17 12:29 Amitriptyline HCl (Elavil Tab) 75 mg HS PO 06/27/17 21:00 07/27/17 20:59 06/27/17 20:00 75 MG Atorvastatin Calcium (Lipitor Tab) 80 mg DAILY PO 06/28/17 09:00 07/28/17 08:59 06/28/17 08:02 80 MG Baclofen (Lioresal Tab) 10 mg TID PRN PO 06/27/17 12:45 07/27/17 12:44 06/28/17 08:00 10 MG Dicyclomine HCl (Bentyl Cap) 10 mg TID PO 06/27/17 14:00 07/27/17 13:59 06/28/17 08:00 10 MG Docusate Sodium (coLACE CAP) 100 mg BID PO 06/27/17 21:00 07/27/17 20:59 06/28/17 08:00 100 MG Gabapentin (Neurontin Cap) 400 mg TID PO 06/27/17 16:00 07/27/17 15:59 06/28/17 08:01 400 MG Hydrocortisone (Cortef Tab) 10 mg QAM PO 06/28/17 09:00 07/28/17 08:59 06/28/17 08:00 10 MG Levothyroxine Sodium (Synthroid Tab) 75 mcg DAILYBB PO 06/28/17 06:00 07/28/17 06:59 06/28/17 06:18 75 MCG Multivitamins/ Minerals (Multivitamin W/ Minerals Tab) 1 tab DAILY PO 06/28/17 09:00 07/28/17 08:59 06/28/17 08:01 1 TAB Oxycodone/ Acetaminophen (Percocet 10-325MG Tab) 1 tab Q4H PRN PO 06/27/17 12:45 07/11/17 12:44 06/28/17 04:50 1 TAB Promethazine HCl (Phenergan Tab) 25 mg Q6H PRN PO 06/27/17 12:45 07/27/17 12:44 06/28/17 01:19 25 MG Senna (Senokot Tab) 17.2 mg DAILY PO 06/28/17 09:00 07/28/17 08:59 06/28/17 08:01 17.2 MG Simethicone (Mylicon Chew Tab) 80 mg QID PRN PO 06/27/17 12:45 07/27/17 12:44 Tamsulosin HCl (Flomax Cap) 0.4 mg DAILY PO 06/28/17 09:00 07/28/17 08:59 06/28/17 08:01 0.4 MG Clobetasol Propionate (Clobetasol Propionate Oint) 1 appln BID EXT 06/27/17 21:00 07/27/17 20:59 Lubiprostone (Amitiza) 24 mcg DAILY PO 06/28/17 09:00 07/28/17 08:59 06/28/17 08:00 24 MCG Morphine Sulfate (Oramorph Sr Tab) 30 mg BID PO 06/27/17 21:00 07/11/17 20:59 06/28/17 10:08 30 MG Pantoprazole Sodium (Protonix Tab) 40 mg QAM PO 06/28/17 09:00 07/28/17 08:59 06/28/17 08:00 40 MG Atenolol (Tenormin Tab) 25 mg BID PO 06/27/17 21:00 07/27/17 20:59 06/28/17 08:01 25 MG Amlodipine Besylate (Norvasc Tab) 5 mg QAM PO 06/28/17 09:00 07/28/17 08:59 06/28/17 08:02 5 MG Clopidogrel Bisulfate (plAVix TAB) 75 mg QAM PO 06/28/17 09:00 07/28/17 08:59 06/28/17 08:02 75 MG Hydromorphone HCl (Dilaudid Inj) 0.5 mg Q6H PRN IV 06/27/17 21:30 07/11/17 21:29 06/28/17 08:03 0.5 MG Objective Vital Signs Date Time Temp Pulse Resp B/P (MAP) Pulse Ox O2 Delivery O2 Flow Rate FiO2 06/28/17 08:00 Room Air 06/28/17 07:56 36.9 82 18 154/59 (90) 99 Room Air 86 162/64 (96) 91 157/63 (94) 06/28/17 04:00 Room Air 06/28/17 03:34 97 118/71 (87) 06/28/17 03:33 86 139/70 (93) 06/28/17 03:32 37.1 77 17 150/76 (100) 97 Room Air 06/28/17 00:00 Room Air 06/27/17 23:56 36.6 78 20 137/64 (88) 100 Room Air 06/27/17 20:00 Room Air 06/27/17 19:00 36.8 84 16 156/78 (104) 99 Room Air 06/27/17 17:47 99 147/78 (101) 99 137/78 (97) 106 115/75 (88) 9/11/17 15:30 36.8 84 16 158/83 95 Room Air 06/27/17 13:16 84 18 165/84 97 06/27/17 11:33 69 16 153/85 99 Room Air Physical Exam General Appearance: + mild distress (secondary to neck pain) Respiratory/Chest: chest non-tender, lungs clear, normal breath sounds, no respiratory distress, no accessory muscle use Cardiovascular: regular rate, rhythm, no edema, no murmur Extremities: normal inspection, no pedal edema Neurologic/Psychiatric: no motor/sensory deficits, alert, + pertinent finding ( decreased neck ROM due to pain) Laboratory Results Last 24 Hours Test 06/28/17 00:20 06/28/17 06:15 Urine Opiates Screen POS Urine Methadone, Qualitative NEG Urine Barbiturates NEG Urine Phencyclidine (PCP) Level NEG Ur Amphetamine/Methamphetamine NEG MDMA (Ecstasy) Screen NEG Urine Benzodiazepines Screen NEG Urine Cocaine Metabolite NEG Urine Marijuana (THC) NEG White Blood Count 9.43 K/uL Red Blood Count 5.33 M/uL Hemoglobin 14.7 g/dL Hematocrit 45.9 % Mean Corpuscular Volume 86.1 fL Mean Corpuscular Hemoglobin 27.6 pg Mean Corpuscular Hemoglobin Concent 32.0 g/dl Platelet Count 238 K/uL Mean Platelet Volume 8.8 fL Neutrophils (%) (Auto) 78.4 % Lymphocytes (%) (Auto) 15.0 % Monocytes (%) (Auto) 4.9 % Eosinophils (%) (Auto) 1.3 % Basophils (%) (Auto) 0.2 % Neutrophils # (Auto) 7.40 K/uL Lymphocytes # (Auto) 1.41 K/uL Monocytes # (Auto) 0.46 K/uL Eosinophils # (Auto) 0.12 K/uL Basophils # (Auto) 0.02 K/uL RDW Standard Deviation 44.1 fL RDW Coefficient of Variation 14.0 % Immature Granulocyte % (Auto) 0.2 % Immature Granulocyte # (Auto) 0.02 K/uL Sodium Level 142 mmol/L Potassium Level 4.3 mmol/L Chloride Level 106 mmol/L Carbon Dioxide Level 30 mmol/L Anion Gap 6.0 mmol/L Blood Urea Nitrogen 14 mg/dl Creatinine 0.77 mg/dl Est Creatinine Clear Calc Drug Dose 99.5 ml/min Estimated GFR () 112.7 Estimated GFR (Non- 97.3 BUN/Creatinine Ratio 17.7 Random Glucose 113 mg/dl Calcium Level 8.3 mg/dl Triglycerides Level 300 mg/dl Cholesterol Level 156 mg/dl HDL Cholesterol 47 mg/dl LDL Cholesterol, Calculated 49 mg/dl VLDL Cholesterol, Calculated 60 mg/dl Cholesterol/HDL Ratio 3.3 Free Thyroxine 0.86 ng/dl Free Triiodothyronine 2.84 pg/ml Assessment and Plan This is a 62 year old male with a PMH of pituitary macroadenoma s/p resection; 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 of a TIA, chronic cervical pain post-laminectomy syndrome on chronic opioids, narcotic induced constipation admitted with stroke-like symptoms Stroke-Like Symptoms Head CT and Brain MRI/MRA no acute findings has a history of TIA appreciate neurology input aspirin + Plavix + statin for now echo noted, with no ASD, PFO, etc. normal orthostatics, TSH wnl further input as per neurology PT/OT/speech Chronic Cervical Neck Pain; Post-Laminectomy Syndrome patient sees pain management as outpatient will give an extra dose of Dilaudid now then go back to home dose of medications; should see pain management for further input as outpatient continue Amitiza and baseline constipation medications Panhypopituitarism continue prednisone and home meds no need for hydrocortisone at this time Hypothyroidism TSH wnl continue Synthroid DVT ppx Lovenox FULL CODE
--- NOTE | 2017-06-28 15:09 | Neurology Progress Notes ---
Neurology Progress Note Date of Service Jun 28, 2017. 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 He presented to the ED with stroke like symptoms. He was feeling normally when he awoke overnight at 2:30 am, then awoke at 8 am with lightheadedness, inability to walk in a straight line, and difficulty getting words out. Symptoms have resolved. He had ambulated to the bathroom in the ED without difficulty. His symptoms where similar in 2013 when he had a TIA. No facial droop per family. He was able to eat this morning without swallowing difficulty. Denies syncope, headache, vision change, focal numbness or weakness, falls. Has chronic neck pain for which he takes chronic opioids. denies hx of arrhythmia or DM. He states today that all of his neurologic symptoms have resolved but his neck pain is worse the last 2 days and he does not want to go home. discussed getting up and moving around and not staying in bed for any length of time to help with pain. denies CP, SOB, abdominal pain, word finding issues, one sided weakness, numbness tingling, N, V, swallow issues. Objective Date Time Temp Pulse Resp B/P (MAP) Pulse Ox O2 Delivery O2 Flow Rate FiO2 06/28/17 14:50 36.8 86 18 95 06/28/17 12:12 36.8 86 18 120/63 (82) 95 06/28/17 12:00 Room Air 06/28/17 08:00 Room Air 06/28/17 07:56 36.9 82 18 154/59 (90) 99 Room Air 86 162/64 (96) 91 157/63 (94) 06/28/17 04:00 Room Air 06/28/17 03:34 97 118/71 (87) 06/28/17 03:33 86 139/70 (93) 06/28/17 03:32 37.1 77 17 150/76 (100) 97 Room Air 06/28/17 00:00 Room Air 06/27/17 23:56 36.6 78 20 137/64 (88) 100 Room Air 06/27/17 20:00 Room Air 06/27/17 19:00 36.8 84 16 156/78 (104) 99 Room Air 06/27/17 17:47 99 147/78 (101) 99 137/78 (97) 106 115/75 (88) 06/27/17 15:30 36.8 84 16 158/83 95 Room Air Last 24 Hours Test 06/28/17 00:20 06/28/17 06:15 Urine Opiates Screen POS Urine Methadone, Qualitative NEG Urine Barbiturates NEG Urine Phencyclidine (PCP) Level NEG Ur Amphetamine/Methamphetamine NEG MDMA (Ecstasy) Screen NEG Urine Benzodiazepines Screen NEG Urine Cocaine Metabolite NEG Urine Marijuana (THC) NEG White Blood Count 9.43 K/uL Red Blood Count 5.33 M/uL Hemoglobin 14.7 g/dL Hematocrit 45.9 % Mean Corpuscular Volume 86.1 fL Mean Corpuscular Hemoglobin 27.6 pg Mean Corpuscular Hemoglobin Concent 32.0 g/dl Platelet Count 238 K/uL Mean Platelet Volume 8.8 fL Neutrophils (%) (Auto) 78.4 % Lymphocytes (%) (Auto) 15.0 % Monocytes (%) (Auto) 4.9 % Eosinophils (%) (Auto) 1.3 % Basophils (%) (Auto) 0.2 % Neutrophils # (Auto) 7.40 K/uL Lymphocytes # (Auto) 1.41 K/uL Monocytes # (Auto) 0.46 K/uL Eosinophils # (Auto) 0.12 K/uL Basophils # (Auto) 0.02 K/uL RDW Standard Deviation 44.1 fL RDW Coefficient of Variation 14.0 % Immature Granulocyte % (Auto) 0.2 % Immature Granulocyte # (Auto) 0.02 K/uL Sodium Level 142 mmol/L Potassium Level 4.3 mmol/L Chloride Level 106 mmol/L Carbon Dioxide Level 30 mmol/L Anion Gap 6.0 mmol/L Blood Urea Nitrogen 14 mg/dl Creatinine 0.77 mg/dl Est Creatinine Clear Calc Drug Dose 99.5 ml/min Estimated GFR () 112.7 Estimated GFR (Non- 97.3 BUN/Creatinine Ratio 17.7 Random Glucose 113 mg/dl Calcium Level 8.3 mg/dl Triglycerides Level 300 mg/dl Cholesterol Level 156 mg/dl HDL Cholesterol 47 mg/dl LDL Cholesterol, Calculated 49 mg/dl VLDL Cholesterol, Calculated 60 mg/dl Cholesterol/HDL Ratio 3.3 Free Thyroxine 0.86 ng/dl Free Triiodothyronine 2.84 pg/ml Imaging: TTE- * The interatrial septum is intact with no evidence for an atrial septal defect. * Injection of contrast documented no interatrial shunt. * No cardiac source of emboli noted. * The left ventricle is normal in size. * Left ventricular systolic function is normal. * Ejection Fraction = 60-65%. * The right ventricular systolic function is normal. 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 tricep 5/5 bilaterally hip flex plantar flex ext 5/5 bilaterally Current Inpatient Medications Medications (Trade) Dose Ordered Sig/Bruce Route Start Time Stop Time Status Last Admin Dose Admin Enoxaparin Sodium (Lovenox Inj) 40 mg Q24H SC 06/27/17 18:00 07/27/17 17:59 06/27/17 18:10 40 MG Ondansetron HCl (Zofran Inj) 4 mg Q6H PRN IV 06/27/17 12:30 07/27/17 12:29 06/28/17 04:52 4 MG Miscellaneous Information (Pharmacist Discharge Med Rec Consult) 1 ea UD PRN N/A 06/27/17 12:30 07/27/17 12:29 Amitriptyline HCl (Elavil Tab) 75 mg HS PO 06/27/17 21:00 07/27/17 20:59 06/27/17 20:00 75 MG Atorvastatin Calcium (Lipitor Tab) 80 mg DAILY PO 06/28/17 09:00 07/28/17 08:59 06/28/17 08:02 80 MG Baclofen (Lioresal Tab) 10 mg TID PRN PO 06/27/17 12:45 07/27/17 12:44 06/28/17 08:00 10 MG Dicyclomine HCl (Bentyl Cap) 10 mg TID PO 06/27/17 14:00 07/27/17 13:59 06/28/17 11:52 10 MG Docusate Sodium (coLACE CAP) 100 mg BID PO 06/27/17 21:00 07/27/17 20:59 06/28/17 08:00 100 MG Gabapentin (Neurontin Cap) 400 mg TID PO 06/27/17 16:00 07/27/17 15:59 06/28/17 11:52 400 MG Hydrocortisone (Cortef Tab) 10 mg QAM PO 06/28/17 09:00 07/28/17 08:59 06/28/17 08:00 10 MG Levothyroxine Sodium (Synthroid Tab) 75 mcg DAILYBB PO 06/28/17 06:00 07/28/17 06:59 06/28/17 06:18 75 MCG Multivitamins/ Minerals (Multivitamin W/ Minerals Tab) 1 tab DAILY PO 06/28/17 09:00 07/28/17 08:59 06/28/17 08:01 1 TAB Oxycodone/ Acetaminophen (Percocet 10-325MG Tab) 1 tab Q4H PRN PO 06/27/17 12:45 07/11/17 12:44 06/28/17 04:50 1 TAB Promethazine HCl (Phenergan Tab) 25 mg Q6H PRN PO 06/27/17 12:45 07/27/17 12:44 06/28/17 01:19 25 MG Senna (Senokot Tab) 17.2 mg DAILY PO 06/28/17 09:00 07/28/17 08:59 06/28/17 08:01 17.2 MG Simethicone (Mylicon Chew Tab) 80 mg QID PRN PO 06/27/17 12:45 07/27/17 12:44 Tamsulosin HCl (Flomax Cap) 0.4 mg DAILY PO 06/28/17 09:00 07/28/17 08:59 06/28/17 08:01 0.4 MG Clobetasol Propionate (Clobetasol Propionate Oint) 1 appln BID EXT 06/27/17 21:00 07/27/17 20:59 Lubiprostone (Amitiza) 24 mcg DAILY PO 06/28/17 09:00 07/28/17 08:59 06/28/17 08:00 24 MCG Morphine Sulfate (Oramorph Sr Tab) 30 mg BID PO 06/27/17 21:00 07/11/17 20:59 06/28/17 10:08 30 MG Pantoprazole Sodium (Protonix Tab) 40 mg QAM PO 06/28/17 09:00 07/28/17 08:59 06/28/17 08:00 40 MG Atenolol (Tenormin Tab) 25 mg BID PO 06/27/17 21:00 07/27/17 20:59 06/28/17 08:01 25 MG Amlodipine Besylate (Norvasc Tab) 5 mg QAM PO 06/28/17 09:00 07/28/17 08:59 06/28/17 08:02 5 MG Clopidogrel Bisulfate (plAVix TAB) 75 mg QAM PO 06/28/17 09:00 07/28/17 08:59 06/28/17 08:02 75 MG Hydromorphone HCl (Dilaudid Inj) 0.5 mg Q6H PRN IV 06/27/17 21:30 07/11/17 21:29 06/28/17 08:03 0.5 MG Impression 62 year old male s/p dizzy, staggering gait, slurred speech, word finding issues -no resolved Plan 1. no ischemic issues on MRI 2. MRA no vascular issues neck or brain 3. optimize blood pressure and lipids, DM 4. plavix 75 mg added start today 5. taking Excedrin with 81 mg aspirin continue 6. orthostatics for any possible issues with Cortef and blood pressure drops- no orthostatic drops in pressure 7. sent MRI brain to [facility] for review 8. PT/OT dose no seem to have and current issues 9. will need ZIO monitor at discharge from hospital 10. follow in our office in 3-4 weeks neurology Wilma Montes PAC schedule I have seen and discussed above patient with Dr Wilma Herrera, neurology Pt seen, discussed. TIA, garcia uremarkable, dual antiplt tx, I would rec that pt not take significantly more than 81 mg asa given plavix use. Ziopatch as outpt. Await NS review of images of pituitary. Pt has not been orthostatic re cortef dosing. MD Caroline
[2017-06-28] MEDS: ENOXAPARIN 40 MG/0.4 ML SYR SC SCH (18:18)
[2017-06-28] MEDS: AMITRIPTYLINE HCL 25 MG TAB PO SCH (20:17)
[2017-06-29 00:19] VITALS: BP 128/62; PULSE 68; TEMP 37.1; O2SAT 98
[2017-06-29] MEDS: LEVOTHYROXINE 75 MCG TAB PO SCH (05:35)
[2017-06-29 06:11] LABS: BASO % 0.3 %; BASO ABS # 0.03 K/uL (0-0.2); COMPLETE YES; EOS % 1.6 %; HEMATOCRIT 47.4 % (42-52); IG% 0.1 %; LYMPH % 26.2 %; LYMPH ABS # 2.29 K/uL (1.2-3.4); MEAN CELL VOLUME 85.6 fL (80-100); MEAN CORPUSCULAR HEMOGLOBIN 27.6 pg (25-34); MEAN CORPUSCULAR HGB CONC 32.3 g/dl (32-36); MEAN PLATELET VOLUME 8.7 fL (7.4-10.4); MONO % 6.1 %; NEUT % 65.7 %; PLATELET COUNT 249 K/uL (130-400); RED BLOOD COUNT 5.54 M/uL (4.7-6.1); WHITE BLOOD COUNT 8.73 K/uL (4.8-10.8)
[2017-06-29 06:45] LABS: BUN/CREATININE RATIO 21.1 (10-20); CALCIUM 8.4 mg/dl (8.5-10.1); CREATININE 0.9 mg/dl (0.60-1.40); POTASSIUM 4.3 mmol/L (3.5-5.1)
[2017-06-29 07:16] VITALS: BP 136/71; PULSE 72; TEMP 37; O2SAT 97
[2017-06-29] MEDS: AMLODIPINE BESYLATE 5 MG TAB PO SCH (07:35)
[2017-06-29] MEDS: GABAPENTIN 400 MG CAP PO SCH (07:36)
[2017-06-29] MEDS: ATORVASTATIN 40 MG TAB PO SCH (07:36)
[2017-06-29] MEDS: CEROVITE ADV FORMULA TAB PO SCH (07:36)
[2017-06-29] MEDS: SENNA 8.6 MG TAB PO SCH (07:36)
[2017-06-29] MEDS: CLOPIDOGREL BISULFATE 75 MG TAB PO SCH (07:36)
[2017-06-29] MEDS: PANTOprazole SOD 40 MG TAB PO SCH (07:36)
[2017-06-29] MEDS: DICYCLOMINE HCL 10 MG CAP PO SCH (07:36)
[2017-06-29] MEDS: DOCUSATE SODIUM 100 MG CAP PO SCH (07:36)
[2017-06-29] MEDS: TAMSULOSIN HCL 0.4 MG CAP PO SCH (07:37)
[2017-06-29] MEDS: MoRPHine SULFATE CR 15 MG TAB (MS CONTIN) PO SCH (07:37)
[2017-06-29] MEDS: LUBIPROSTONE 8 MCG CAP PO SCH (07:37)
[2017-06-29] MEDS: CLOBETASOL PROPIONATE 0.05% OINT 15 GM TUBE EXT SCH (07:37)
[2017-06-29] MEDS: HYDROCORTISONE 10 MG TAB PO SCH (07:37)
[2017-06-29 08:00] VITALS: O2SAT 97
[2017-06-29] MEDS: OXYCODONE/ACETAMINOPHEN 10/325MG TAB PO PRN (09:52)
--- NOTE | 2017-06-29 12:37 | Progress Note ---
Subjective Date of Service: Jun 29, 2017. Subjective Pt evaluation today including: conversation w/ patient, physical exam, lab review, review of studies, review of inpatient medication list Saw/examined the patient in room 401 He's doing well, no neck pain currently, sitting comfortably eating lunch No other issues to note, ambulating well. Problem List Medical Problems: (1) Constipation Status: Acute (2) Encounter for Sweeney catheter removal Status: Acute (3) Neck pain on left side Status: Acute (4) Neck pain, chronic Status: Acute (5) Pain of cervical spine Status: Acute (6) TIA (transient ischemic attack) Status: Acute (7) Urinary retention Status: Acute Review of Systems Constitutional: No fever, No chills Respiratory: No cough, No sputum, No shortness of breath Cardiac: No chest pain Abdomen: No pain, No nausea, No vomiting, No diarrhea Musculoskeletal: + joint pain (neck pain, improved) Medications Current Inpatient Medications Medications (Trade) Dose Ordered Sig/Bruce Route Start Time Stop Time Status Last Admin Dose Admin Enoxaparin Sodium (Lovenox Inj) 40 mg Q24H SC 06/27/17 18:00 07/27/17 17:59 06/28/17 18:18 40 MG Ondansetron HCl (Zofran Inj) 4 mg Q6H PRN IV 06/27/17 12:30 07/27/17 12:29 06/28/17 04:52 4 MG Miscellaneous Information (Pharmacist Discharge Med Rec Consult) 1 ea UD PRN N/A 06/27/17 12:30 07/27/17 12:29 Amitriptyline HCl (Elavil Tab) 75 mg HS PO 06/27/17 21:00 07/27/17 20:59 06/28/17 20:17 75 MG Atorvastatin Calcium (Lipitor Tab) 80 mg DAILY PO 06/28/17 09:00 07/28/17 08:59 06/29/17 07:36 80 MG Baclofen (Lioresal Tab) 10 mg TID PRN PO 06/27/17 12:45 07/27/17 12:44 06/28/17 08:00 10 MG Dicyclomine HCl (Bentyl Cap) 10 mg TID PO 06/27/17 14:00 07/27/17 13:59 06/29/17 07:36 10 MG Docusate Sodium (coLACE CAP) 100 mg BID PO 06/27/17 21:00 07/27/17 20:59 06/29/17 07:36 100 MG Gabapentin (Neurontin Cap) 400 mg TID PO 06/27/17 16:00 07/27/17 15:59 06/29/17 07:36 400 MG Hydrocortisone (Cortef Tab) 10 mg QAM PO 06/28/17 09:00 07/28/17 08:59 06/29/17 07:37 10 MG Levothyroxine Sodium (Synthroid Tab) 75 mcg DAILYBB PO 06/28/17 06:00 07/28/17 06:59 06/29/17 05:35 75 MCG Multivitamins/ Minerals (Multivitamin W/ Minerals Tab) 1 tab DAILY PO 06/28/17 09:00 07/28/17 08:59 06/29/17 07:36 1 TAB Oxycodone/ Acetaminophen (Percocet 10-325MG Tab) 1 tab Q4H PRN PO 06/27/17 12:45 07/11/17 12:44 06/29/17 09:52 1 TAB Promethazine HCl (Phenergan Tab) 25 mg Q6H PRN PO 06/27/17 12:45 07/27/17 12:44 06/28/17 01:19 25 MG Senna (Senokot Tab) 17.2 mg DAILY PO 06/28/17 09:00 07/28/17 08:59 06/29/17 07:36 17.2 MG Simethicone (Mylicon Chew Tab) 80 mg QID PRN PO 06/27/17 12:45 07/27/17 12:44 Tamsulosin HCl (Flomax Cap) 0.4 mg DAILY PO 06/28/17 09:00 07/28/17 08:59 06/29/17 07:37 0.4 MG Clobetasol Propionate (Clobetasol Propionate Oint) 1 appln BID EXT 06/27/17 21:00 07/27/17 20:59 Lubiprostone (Amitiza) 24 mcg DAILY PO 06/28/17 09:00 07/28/17 08:59 06/29/17 07:37 24 MCG Morphine Sulfate (Oramorph Sr Tab) 30 mg BID PO 06/27/17 21:00 07/11/17 20:59 06/29/17 07:37 30 MG Pantoprazole Sodium (Protonix Tab) 40 mg QAM PO 06/28/17 09:00 07/28/17 08:59 06/29/17 07:36 40 MG Atenolol (Tenormin Tab) 25 mg BID PO 06/27/17 21:00 07/27/17 20:59 06/29/17 07:35 25 MG Amlodipine Besylate (Norvasc Tab) 5 mg QAM PO 06/28/17 09:00 07/28/17 08:59 06/29/17 07:35 5 MG Clopidogrel Bisulfate (plAVix TAB) 75 mg QAM PO 06/28/17 09:00 07/28/17 08:59 06/29/17 07:36 75 MG Hydromorphone HCl (Dilaudid Inj) 0.5 mg Q6H PRN IV 06/27/17 21:30 07/11/17 21:29 06/28/17 17:23 0.5 MG Objective Vital Signs Date Time Temp Pulse Resp B/P (MAP) Pulse Ox O2 Delivery O2 Flow Rate FiO2 06/29/17 08:00 97 Room Air 06/29/17 07:16 37.0 72 14 136/71 (92) 97 Room Air 06/29/17 00:19 37.1 68 18 128/62 (84) 98 Room Air 06/28/17 23:30 Room Air 06/28/17 20:09 66 149/76 (100) 06/28/17 16:00 36.6 70 20 146/68 (94) 97 Room Air 06/28/17 16:00 95 Room Air 06/28/17 14:50 36.8 86 18 95 Physical Exam General Appearance: no apparent distress Respiratory/Chest: lungs clear, normal breath sounds, no respiratory distress, no accessory muscle use Cardiovascular: regular rate, rhythm, no edema, no murmur Neurologic/Psychiatric: 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 tested, no motor/sensory deficits, alert, normal mood/affect, oriented x 3 Skin: normal color Laboratory Results Last 24 Hours Test 06/29/17 05:43 White Blood Count 8.73 K/uL Red Blood Count 5.54 M/uL Hemoglobin 15.3 g/dL Hematocrit 47.4 % Mean Corpuscular Volume 85.6 fL Mean Corpuscular Hemoglobin 27.6 pg Mean Corpuscular Hemoglobin Concent 32.3 g/dl Platelet Count 249 K/uL Mean Platelet Volume 8.7 fL Neutrophils (%) (Auto) 65.7 % Lymphocytes (%) (Auto) 26.2 % Monocytes (%) (Auto) 6.1 % Eosinophils (%) (Auto) 1.6 % Basophils (%) (Auto) 0.3 % Neutrophils # (Auto) 5.73 K/uL Lymphocytes # (Auto) 2.29 K/uL Monocytes # (Auto) 0.53 K/uL Eosinophils # (Auto) 0.14 K/uL Basophils # (Auto) 0.03 K/uL RDW Standard Deviation 44.1 fL RDW Coefficient of Variation 14.1 % Immature Granulocyte % (Auto) 0.1 % Immature Granulocyte # (Auto) 0.01 K/uL Sodium Level 142 mmol/L Potassium Level 4.3 mmol/L Chloride Level 109 mmol/L Carbon Dioxide Level 30 mmol/L Anion Gap 3.0 mmol/L Blood Urea Nitrogen 19 mg/dl Creatinine 0.90 mg/dl Est Creatinine Clear Calc Drug Dose 85.1 ml/min Estimated GFR () 105.7 Estimated GFR (Non- 91.2 BUN/Creatinine Ratio 21.1 Random Glucose 97 mg/dl Calcium Level 8.4 mg/dl Assessment and Plan This is a 62 year old male with a PMH of pituitary macroadenoma s/p resection; 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 of a TIA, chronic cervical pain post-laminectomy syndrome on chronic opioids, narcotic induced constipation admitted with stroke-like symptoms Stroke-Like Symptoms 06/29 patient is doing well, ambulating, very eager to go home will d/c home today with aspirin + Plavix outpatient neurology and PCP follow-up will need Zio patch as outpatient continue high intensity Lipitor 06/[address] and Brain MRI/MRA no acute findings has a history of TIA appreciate neurology input aspirin + Plavix + statin for now echo noted, with no ASD, PFO, etc. normal orthostatics, TSH wnl further input as per neurology PT/OT/speech Chronic Cervical Neck Pain; Post-Laminectomy Syndrome patient sees pain management as outpatient will give an extra dose of Dilaudid now then go back to home dose of medications; should see pain management for further input as outpatient continue Amitiza and baseline constipation medications Panhypopituitarism continue prednisone and home meds no need for hydrocortisone at this time Hypothyroidism TSH wnl continue Synthroid DVT ppx Lovenox FULL CODE
[2017-06-29] MEDS ORDERED: PLV75 PO (12:38)
--- NOTE | 2017-06-29 12:44 | Discharge Instructions ---
Discharge Instructions Date of Service Jun 29, 2017. Admission Reason for Admission: Stroke-Like Symptoms Discharge Discharge Diagnosis / Problem: TIA Discharge Goals Goal(s): Decrease discomfort, Improve function, Diagnostic testing, Therapeutic intervention Activity Recommendations Activity Limitations: resume your previous activity . Instructions / Follow-Up Instructions / Follow-Up Please follow-up with Dr. Rain on July 04 at 10:45AM * Please follow-up with neurology as an outpatient * You will need a Zio patch (heart monitor) as outpatient for two weeks * Please take aspirin and Plavix both for around three months or unless stated by neurology - spoke to you about possibly decreasing Excedrin dose as this has more than the recommended 81mg of aspirin - please discuss with pain management about alternatives; and notify primary care physician if you note any excessive bleeding * Stop taking Prilosec and take Protonix instead (the Prilosec interacts with Plavix, whereas the Protonix has less of an interaction) Risk Factors for Stroke: You can reduce your chances of stroke by working with your medical provider to adopt a healthy lifestyle. Some specific ways to lower your chance of stroke are: * If you are a smoker, now is the time to stop smoking cigarettes * If you are diabetic, improve the control of your blood sugars * Avoid excessive amounts of alcohol * Control high blood pressure * Lose weight if you are overweight * Be sure to lead an active lifestyle * Eat a healthy diet low in salt, cholesterol and fat You should know about other risk factors for stroke that you are unable to control. These include: * Age 55 years or older * Male gender * Certain racial groups: , or / * Family History of Stroke, Mini stroke or Heart Attack * Sickle Cell Disease Follow Up: It is important for you to keep your follow up appointments with your medical provider. Current Hospital Diet Patient's current hospital diet: AHA Diet (Heart Healthy) Discharge Diet Recommended Diet: AHA Diet (Heart Healthy) Pending Studies Studies pending at discharge: no Laboratory Results Hemoglobin A1c Test 06/27/17 09:08 Range/Units Estimated Average Glucose 128 mg/dl Hemoglobin A1c 6.1 H 4.5-5.6 % Lipid Panel Test 06/28/17 06:15 Range/Units Triglycerides Level 300 H 0-150 mg/dl Cholesterol Level 156 0-200 mg/dl HDL Cholesterol 47 mg/dl Cholesterol/HDL Ratio 3.3 LDL Cholesterol, Calculated 49 mg/dl Medical Emergencies . Who to Call and When: Medical Emergencies: Call 911 immediately if you experience any of the following warning signs and symptoms of Stroke: * Sudden numbness or weakness of the face, arm or leg, especially on one side of the body * Sudden confusion, trouble speaking or understanding * Sudden trouble seeing in one or both eyes * Sudden trouble walking, dizziness, loss of balance or coordination * Sudden severe headache with no cause Do not delay calling 911 if you experience any warning signs or symptoms of a stroke. Delay in seeking medical attention may affect what treatments can be given to you. . Non-Emergent Contact Non-Emergency issues call your: Primary Care Provider . . "Provider Documentation" section prepared by Lewis Malloy. . Stroke Core Measures Reason no t-PA for Stroke: Treatment not indicated Reason no antithrom by day 2: Treatment provided - N/A Reason no antithrom at D/C: Treatment provided - N/A Reason no statin at D/C: Treatment provided - N/A Reason no anticoag w/a fib: Treatment provided - N/A VTE Core Measure Inpt VTE Proph given/why not?: Enoxaparin (Lovenox)SQ
--- NOTE | 2017-06-29 12:47 | Discharge Summary ---
Discharge Summary Date of Service Jun 29, 2017. Discharge Summary Admission Date: Jun 27, 2017 at 11:42 Discharge Date: Jun 29, 2017 Discharge Disposition: Home Principal Diagnosis: TIA Medication Reconciliation New Medications: Clopidogrel Bisulfate (Clopidogrel) 75 Mg Tab 75 MG PO QAM for 30 Days, #30 TAB Continued Medications: Amitriptyline Hcl (Elavil) 75 Mg Tab 75 MG PO HS, TAB Amlodipine (Norvasc) 5 Mg Tab 5 MG PO QAM Tiqtvom-Jnwhnzfanfwvh-Tgmsedbi (Excedrin Extra Strength) 1 Tab Tab 2 TABS PO UD Take 2 tabs by mouth twice per day in the morning and at noon. Atenolol (Tenormin) 25 Mg Tab 25 MG PO BID Atorvastatin (Lipitor) 80 Mg Tab 80 MG PO DAILY, TAB Baclofen (Lioresal) 10 Mg Tab 10 MG PO TID PRN for Muscle Spasms, TAB Clobetasol Propionate (Temovate) 0.05 % Oin 1 APPLN TOP BID, #60 GM 3 Refills Dicyclomine Hcl (Dicyclomine Hcl) 10 Mg Cap 10 MG PO TID Diphenhydramine-Acetaminophen (Excedrin Pm) 1 Tab Tab 2 TABS PO HS Docusate Sodium (Docusate Sodium) 100 Mg Cap 100 MG PO BID Gabapentin (Neurontin) 400 Mg Cap 400 MG PO TID, CAP Hydrocortisone (Cortef) 10 Mg Tab 10 MG PO QAM, TAB Levothyroxine Sodium (Levothyroxine Sodium) 75 Mcg Tab 75 MCG PO QAM Lubiprostone (Amitiza) 24 Mcg Cap 24 MCG PO DAILY Menthol (Topical Analgesic) (Icy Hot Patch) 5 % Pad 1 PATCH EXT DAILY PRN for Pain Morphine Sulfate (Morphine Sulfate Er) 30 Mg Tab 30 MG PO BID Multiple Vitamins W/ Minerals (Centrum Silver Adult 50+) 1 Tab Tab 1 TAB PO DAILY Omeprazole (Prilosec) 40 Mg Cap 40 MG PO DAILY, CAP Oxycodone/Acetaminophen 10MG/325MG (Percocet 10MG/325MG) Tab 1 TAB PO Q4H PRN for Pain, TAB Promethazine HCl (Promethazine HCl) 25 Mg Tab 25 MG PO Q6H PRN for Nausea Senna (Senokot) 8.6 Mg Tab 2 TABS PO DAILY, TAB Simethicone (Gas-X) 80 Mg Chw 80 MG PO UD PRN for gas Tamsulosin HCl (Tamsulosin HCl) 0.4 Mg Cap 0.4 MG PO DAILY Admission Information HPI (per Admitting provider): This is a 62 y/o male with PMH of possible TIA in May 2014, HTN, HL, 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 Patient reports recovering well from surgery. Denies recent illness. Patient was feeling normally when he awoke overnight at 2 :30 am, then awoke at 8 am with lightheadedness, inability to walk in a straight line, and speech difficulty. Patient states he had difficulty getting words out. His brother at bedside noticed his speech was slurred over the phone earlier, which is now resolved. Patient called his father who drove him to the ED. Patient states symptoms are resolved at present. Has ambulated to restroom in ER without issues. Pt reports symptoms were similar to presentation on prior hospitalization in 2013 for TIA. No facial droop per family. He was able to eat this morning without swallowing difficulty. Denies syncope, headache, vision change, focal numbness or weakness. Has chronic neck pain for which he takes chronic opioids, currently rated 8/10. No radiation down the UE. No recent injury, however states positioning for last outpatient MRI exacerbated his pain. Has IBS with chronic constipation- last BM yesterday. Denies fever, chills , URI symptoms, cough, SOB, chest pain, abdominal pain, N/V, dysuria, frequency. Denies recent medication changes except for addition of stool softener. Denies hx of arrhythmia or DM. Physical Exam (per Admitting): General Appearance: WD/WN, no apparent distress, + pertinent finding ( pleasant alert 62 year old male, lying in bed, father and brother at bedside) Head: normocephalic, atraumatic Eyes: normal inspection, PERRL, EOMI ENT: hearing grossly normal, + pertinent finding (s/p uvula resection) Neck: supple, no carotid bruits, trachea midline, + pertinent finding (no cervical spinal point tenderness or cervical paraspinal muscle tenderness. 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 facial movements symmetric.), no motor/sensory deficits (motor 5/5 all extremities. sensation to light touch intact all extremities.), alert, normal mood/affect, normal reflexes (normal patellar reflexes), oriented x 3, + pertinent finding (no pronator drift. finger to nose intact bilaterally. gait is normal on ambulation across the room. 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 of a TIA, chronic cervical pain post-laminectomy syndrome on chronic opioids, narcotic induced constipation admitted with stroke-like symptoms Stroke-Like Symptoms 06/29 patient is doing well, ambulating, very eager to go home will d/c home today with aspirin + Plavix outpatient neurology and PCP follow-up will need Zio patch as outpatient continue high intensity Lipitor 06/[address] and Brain MRI/MRA no acute findings has a history of TIA appreciate neurology input aspirin + Plavix + statin for now echo noted, with no ASD, PFO, etc. normal orthostatics, TSH wnl further input as per neurology PT/OT/speech Chronic Cervical Neck Pain; Post-Laminectomy Syndrome patient sees pain management as outpatient will give an extra dose of Dilaudid now then go back to home dose of medications; should see pain management for further input as outpatient continue Amitiza and baseline constipation medications Panhypopituitarism continue prednisone and home meds no need for hydrocortisone at this time Hypothyroidism TSH wnl continue Synthroid DVT ppx Lovenox FULL CODE Total time spent on discharge = 35 minutes This includes examination of the patient, discharge planning, medication reconciliation, and communication with other providers. Discharge Instructions Please follow-up with Dr. Rain on July 04 at 10:45AM * Please follow-up with neurology as an outpatient * You will need a Zio patch (heart monitor) as outpatient for two weeks * Please take aspirin and Plavix both for around three months or unless stated by neurology - spoke to you about possibly decreasing Excedrin dose as this has more than the recommended 81mg of aspirin - please discuss with pain management about alternatives; and notify primary care physician if you note any excessive bleeding * Stop taking Prilosec and take Protonix instead (the Prilosec interacts with Plavix, whereas the Protonix has less of an interaction)
[2017-06-29 12:50] VITALS: BP 136/71; PULSE 72; TEMP 37; O2SAT 97
[2017-06-29] MEDS ORDERED: PANT40TA PO (13:01)
--- NOTE | 2017-06-29 14:00 | Pharmacy Progress Note ---
Pharmacist Stroke Counseling Date of Service Jun 29, 2017. Scope Pharmacy has been consulted to provide medication discharge counseling for this patient admitted with transient ischemic attack as per the Pharmacist Discharge Counseling for Stroke Patients Protocol. Medications on Discharge New Medications: Pantoprazole Sodium (Protonix) 40 Mg Tab 40 MG PO DAILY for 30 Days, #30 TAB Clopidogrel Bisulfate (Clopidogrel) 75 Mg Tab 75 MG PO QAM for 30 Days, #30 TAB Continued Medications: Amitriptyline Hcl (Elavil) 75 Mg Tab 75 MG PO HS, TAB Amlodipine (Norvasc) 5 Mg Tab 5 MG PO QAM Nobxuzu-Hwlvxufyxkhhw-Nfebnemw (Excedrin Extra Strength) 1 Tab Tab 2 TABS PO UD Take 2 tabs by mouth twice per day in the morning and at noon. Atenolol (Tenormin) 25 Mg Tab 25 MG PO BID Atorvastatin (Lipitor) 80 Mg Tab 80 MG PO DAILY, TAB Clobetasol Propionate (Temovate) 0.05 % Oin 1 APPLN TOP BID, #60 GM 3 Refills Dicyclomine Hcl (Dicyclomine Hcl) 10 Mg Cap 10 MG PO TID Diphenhydramine-Acetaminophen (Excedrin Pm) 1 Tab Tab 2 TABS PO HS Docusate Sodium (Docusate Sodium) 100 Mg Cap 100 MG PO BID Gabapentin (Neurontin) 400 Mg Cap 400 MG PO TID, CAP Hydrocortisone (Cortef) 10 Mg Tab 10 MG PO QAM, TAB Levothyroxine Sodium (Levothyroxine Sodium) 75 Mcg Tab 75 MCG PO QAM Lubiprostone (Amitiza) 24 Mcg Cap 24 MCG PO BID Menthol (Topical Analgesic) (Icy Hot Patch) 5 % Pad 1 PATCH EXT DAILY PRN for Pain Morphine Sulfate (Morphine Sulfate Er) 30 Mg Tab 30 MG PO BID Multiple Vitamins W/ Minerals (Centrum Silver Adult 50+) 1 Tab Tab 1 TAB PO DAILY Oxycodone/Acetaminophen 10MG/325MG (Percocet 10MG/325MG) Tab 1 TAB PO Q4H PRN for Pain, TAB Promethazine HCl (Promethazine HCl) 25 Mg Tab 25 MG PO Q6H PRN for Nausea Senna (Senokot) 8.6 Mg Tab 1 TABS PO BID, TAB Simethicone (Gas-X) 80 Mg Chw 80 MG PO UD PRN for gas Tamsulosin HCl (Tamsulosin HCl) 0.4 Mg Cap 0.4 MG PO DAILY Action The above medications, specifically ones for stroke treatment/prophylaxis, have been reviewed in detail with the patient prior to discharge. This includes indication, common adverse reactions, drug interactions, and medication administration. Medication counseling has been employed using the teach-back method to ensure understanding. Outcome The patient has demonstrated understanding of the medications. Please note, they are aware that the pharmacist will call them within 72 hours post-discharge to confirm that the appropriate medications are being taken and answer any further medication related questions the patient might have at that time. Contact information Individual to be contacted: Patient Phone number: [phone] Best time to call: no preference Additional comments: Prior to meeting with Mr. Dillard today, I discussed the Plavix and Prilosec interaction with Dr. Malloy and he changed it to Protonix (less pronounced effects on antiplatelet activity). I also discussed neuro's recs for not much more that ASA 81 mg/day since he will be on the Plavix. With his currently ordered dose of Excedrin Extra Strength, he is receiving at least 1000 mg of aspirin/day. Dr. Malloy had already spoken to the patient about this and he reports that this is the only thing that works for his neck pain. During my counseling session with the patient, I stressed the importance of monitoring for s/sx of bleeding. I told him that changing to another medication for his neck pain would be ideal but he stressed that the Excedrin is the only thing that works for him. I also reviewed the reason for switching him to another PPI. He did not have any major issues with this. He has been on the Lipitor for quite some time w/o muscle pain issues. Of note, he reported to me that he has not taken the baclofen for quite some time. He takes tizanidine 2 tabs TID prn. I have updated this on his med list so it is correct the next time he comes in. Peggy and Inderjit have also been corrected to reflect his accurate outpatient dose as reported to me. Thank you for allowing pharmacy to be involved in the care of this patient. Please call [phone] or [phone] with any additional questions
[2017-06-29] MEDS ORDERED: TIZA4CAP PO (14:03)
[2017-06-30 13:37] LABS: COD UR NEGATIVE NG/ML (CUTOFF=50); HYDROCOD UR NEGATIVE NG/ML (CUTOFF=50); HYDROMOR UR 293 NG/ML (CUTOFF=50); MORPHINE UR 1880 NG/ML (CUTOFF=50); NORHYDROCODONE CONF UR NEGATIVE NG/ML (CUTOFF=50); OXYMORPH UR 235 NG/ML (CUTOFF=50)
--- NOTE | 2017-07-01 15:09 | Pharmacy Progress Note ---
Pharmacist Post D/C Phone Note Date of phone call: Jul 01, 2017. Individual with whom pharmacist spoke to: Roman Dillard The following questions were reviewed during the phone call with responses listed below each: Can you tell me the medications that you are currently taking as well as when and how you take each medication? - Pantoprazole 40 mg PO daily - Clopidogrel 75 mg PO daily (only reviewed new medications since discharge) When have you missed any doses of your medications? - None What side effects are you having from your medications? - None; denies gum bleeding, nose bleeding, unusual bruising What questions do you have about your medications? - Denies questions What problems are you having obtaining your medications? - None When is your next appointment with your primary care doctor? - Tuesday, July 04 Additional comments: - I reminded the patient to monitor for s/s of bleeding due to taking both clopidogrel and Excedrin extra strength (contains aspirin). As per the Pharmacist Discharge Counseling for Stroke Patients Protocol, this phone call has been completed within 72 hours of discharge. Thank you for allowing us to be involved in the care of this patient.
== END 2017-06-29 13:51 | disposition home or self-care (01) | DRG 69 ==
LOC: C.EDB 08:50 → C.2T 11:42 → ENRESERV 12:13 → C.4E 06-28 15:29
PROVIDERS: ADMIT Hospitalist; ATTEND Family Medicine
DX: G45.9 Transient cerebral ischemic attack, unspecified (principal); R47.01 Aphasia; E23.0 Hypopituitarism; R47.1 Dysarthria and anarthria; R27.0 Ataxia, unspecified; R29.700 NIHSS score 0; I10 Essential (primary) hypertension; E78.5 Hyperlipidemia, unspecified; N40.1 Benign prostatic hyperplasia with lower urinary tract symptoms; M96.1 Postlaminectomy syndrome, not elsewhere classified; K58.9 Irritable bowel syndrome, unspecified; K21.9 Gastro-esophageal reflux disease without esophagitis; Z51.81 Encounter for therapeutic drug level monitoring; Z79.899 Other long term (current) drug therapy; Z79.82 Long term (current) use of aspirin; Z79.52 Long term (current) use of systemic steroids; Z79.891 Long term (current) use of opiate analgesic; Z86.73 Personal history of transient ischemic attack (TIA), and cerebral infarction without residual deficits; Z82.49 Family history of ischemic heart disease and other diseases of the circulatory system

== ENCOUNTER 2017-08-28 06:00 | Emergency (ER) | payer OTHER, BC ==
[~2017-08-28] VITALS: Ht 175.3 cm; Wt 77.9 kg
[~2017-08-28 06:00] MED LIST changes: +ASPI-391 PO; -ASPI15TA PO; -ATOR-24 PO; +ATOR-26 PO; -AZEL0.056 NAE; +AZIT500T3 PO; +CLC100X PO; +CLOB1OIN2 TOP; +CLOP1TAB15 PO; -FLM4 PO; +MENT5PAD4 EXT; -MOME6000 NAE; +MULT-845 PO; -MULTTAB PO; -NF34 TOP; -OMEP40CA41 PO; +PANT40TA PO; +PRED20TA PO; -SALI0.6510 NAE; +SENN-61 PO; +SIME80CH PO; +TIZA4CAP PO; -ZNF/4 PO; -[UNRECOGNIZED DRUG - CODE] TOP
[2017-08-28 06:01] VITALS: TEMP 36.6; Ht 175.3 cm; Wt 77.9 kg
[2017-08-28] MEDS ORDERED: FENTANYL CITRATE INJ 50 MCG/1 ML 2 ML VIAL IV STA (06:30)
[2017-08-28] MEDS ORDERED: ONDANSETRON INJ 2 MG/ML 2 ML VIAL IV STA (06:30)
--- NOTE | 2017-08-28 06:31 | EMERGENCY ROOM VISIT NOTE ---
History Report prepared by Rosalba: Elaina Orlando Under the Supervision of: Dr. Lucas Schmitt M.D. First contact with patient: 06:24 Chief Complaint: ABDOMINAL PAIN Stated Complaint: ABDOMINAL PAIN/BURNING/STABBING Nursing Triage Summary: Pt brought in by EMS. Pt with burning and stabbing pain in upper abdomen for a couple weeks. Tonight the pain was worse. Pt took antacids with no relief. Pt dry heaving tonight. Pt was scheduled to have GI series Tuesday but had to cancel due to having bronchitis. History of Present Illness The patient is a 62 year old male who presents to the Emergency Room with complaints of abdominal pain beginning 2 weeks ago. The patient describes the pain as sharp and heartburn-like. The patient reports that he was supposed to have an endoscopy done but came down with bronchitis so it was postponed. He states that he was on prednisone and azithromycin for the bronchitis. He reports having back pain but denies fevers, vomiting, diarrhea, and urinary symptoms. The patient denies a history of kidney problems. Source of History: patient Onset: 2 weeks ago Position: abdomen Quality: sharp, other (heartburn-like) Associated Symptoms: + back pain, No fevers, No vomiting, No diarrhea, No urinary symptoms Review of Systems See HPI for pertinent positives & negatives. A total of 10 systems reviewed and were otherwise negative. 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 (12) Pituitary adenoma (13) Spondylosis, cervical (14) Tonsillectomy Surgical Problems: (1) H/O elbow surgery (2) S/P Achilles tendon repair (3) S/P cervical spinal fusion (4) S/P nasal septoplasty (5) S/p removal of turbinate bones (6) S/P shoulder surgery (7) S/P tonsillectomy and adenoidectomy (8) S/P UPPP (uvulopalatopharyngoplasty) (9) Status post transsphenoidal pituitary resection Family History Hypertension FATHER MOTHER Social History Smoking Status: Never Smoker Alcohol Use: none Drug Use: none Marital Status: single Housing Status: lives alone Current/Historical Medications Scheduled Amitriptyline Hcl (Elavil), 75 MG PO HS Amlodipine (Norvasc), 5 MG PO QAM Jgdzmcp-Zdbbbfvszpujp-Qgrzwwdn (Excedrin Extra Strength), 2 TABS PO UD Atenolol (Tenormin), 25 MG PO BID Atorvastatin (Lipitor), 80 MG PO QPM Azithromycin (Azithromycin), 1 TAB PO DAILY Clobetasol Propionate (Temovate), 1 APPLN TOP BID Clopidogrel (Plavix), 75 MG PO QAM Dicyclomine Hcl (Dicyclomine Hcl), 10 MG PO TID Diphenhydramine-Acetaminophen (Excedrin Pm), 2 TABS PO HS Docusate Sodium (Docusate Sodium), 100 MG PO BID Gabapentin (Neurontin), 400 MG PO TID Hydrocortisone (Cortef), 10 MG PO QAM Levothyroxine Sodium (Levothyroxine Sodium), 75 MCG PO QAM Lubiprostone (Amitiza), 24 MCG PO BID Morphine Sulfate (Morphine Sulfate Er), 30 MG PO BID Multiple Vitamins W/ Minerals (Centrum Silver Adult 50+), 1 TAB PO DAILY Pantoprazole (Protonix), 40 MG PO QAM Prednisone (Prednisone), 1 TAB PO UD Senna (Senokot), 1 TABS PO BID Sucralfate (Carafate), 1 GM PO ACHS Scheduled PRN Benzonatate (Tessalon Perles), 100 MG PO for Cough Menthol (Topical Analgesic) (Icy Hot Patch), 1 PATCH EXT DAILY PRN for Pain Oxycodone/Acetaminophen 10MG/325MG (Percocet 10MG/325MG), 1 TAB PO Q4H PRN for Pain Promethazine HCl (Promethazine HCl), 25 MG PO Q6H PRN for Nausea Simethicone (Gas-X), 80 MG PO UD PRN for gas Tizanidine (Zanaflex), 2 TABS PO TID PRN for Muscle Spasms Allergies Coded Allergies: No Known Allergies (Unverified , 08/28/17) Physical Exam Vital Signs Date Time Temp Pulse Resp B/P (MAP) Pulse Ox O2 Delivery O2 Flow Rate FiO2 11/12/17 10:30 84 18 167/73 100 Room Air 08/28/17 08:19 80 18 155/80 100 Room Air 08/28/17 06:19 84 08/28/17 06:01 36.6 83 20 167/93 100 Room Air Physical Exam GENERAL: Patient is uncomfortable appearing and in moderate distress, and diaphoretic. HEENT: No acute trauma, normocephalic atraumatic, mucous membranes moist, no nasal congestion, no scleral icterus. NECK: No stridor, no adenopathy, no meningismus, trachea is midline. LUNGS: No dyspnea. Clear to auscultation and equal bilaterally. No wheeze, no rhonchi. HEART: Regular rate and rhythm. No murmurs, rubs, gallops appreciated. ABDOMEN: Soft, moderate tenderness in the epigastrium and diffuse mild tenderness otherwise, bowel sounds positive, no masses appreciated, no peritonitis. BACK: No midline tenderness, no CVA tenderness EXTREMITIES: Normal motion all extremities, no cyanosis, no edema. NEUROLOGIC: Alert and oriented, no acute motor or sensory deficits, no focal weakness, cranial nerves grossly intact. SKIN: No rash, no jaundice, no diaphoresis. Medical Decision & Procedures ER Provider Diagnostic Interpretation: Radiology results and stated below per my review and radiologist interpretation: ABDOMEN AND PELVIS CT WITH IV CONTRAST CT DOSE: 522.57 mGy.cm HISTORY: Acute epigastric abdominal pain. epigastric pain now diffuse post prednisone use TECHNIQUE: Multiaxial CT images of the abdomen and pelvis were performed following the use of intravenous contrast. 92 mL Optiray 320 IV contrast was administered A dose lowering technique was utilized adhering to the principles of ALARA. COMPARISON STUDY: MRCP 07/21/2015, ultrasound of the abdomen 11/06/2012. FINDINGS: Imaged lung bases are generally clear. There is no pneumoperitoneum identified. The imaged inferior cardiac chambers are unremarkable. Nonspecific low attenuating 4 mm lesion of the subserosal right hepatic lobe, image 25 series 2 is too small to characterize however suggests a hepatic cyst. Liver is otherwise unremarkable. No intrahepatic biliary ductal dilation. Spleen, pancreas and adrenal glands are unremarkable. There is mild distention of the gallbladder which is otherwise within normal limits. 4 mm low attenuating lesion of the anterior interpolar right kidney suggests cyst. There is no renal calculi or hydronephrosis. Ureters and urinary bladder are within normal limits. Prostate is mildly enlarged. Phleboliths are seen within the pelvis. The abdominal aorta is normal in course and caliber with mild mixed plaquing. No bulky adenopathy. Small duodenal diverticulum. No bowel obstruction or focal bowel wall thickening. Scattered noninflamed colonic diverticula. There is moderate stool volume of the ascending and transverse colon. The appendix contains high attenuating debris as seen on image 255 series 3 which may reflect an appendicolith. No CT evidence of acute appendicitis. Mild nonspecific stranding of the left subcutaneous anterior abdominal wall, image 263 series 3. The bones appear intact. IMPRESSION: 1. No acute intra-abdominal or intrapelvic abnormality identified. 2. High attenuating material within the distal appendiceal lumen may reflect appendicolith. No CT evidence of acute appendicitis. 3. Colonic diverticulosis without diverticulitis. 4. Moderate stool volume of the ascending and transverse colon suggests constipation. 5. Prostamegaly. Electronically signed by: Mason Diaz M.D. 08/28/2017 8:18 AM Dictated Date/Time: 08/28/2017 8:11 AM GALLBLADDER-ABD LIMITED HISTORY: 62 years-old Male persistent epigastric pain/discomfort acute epigastric abdominal pain COMPARISON: CT of same day, right upper quadrant ultrasound 07/16/2015 TECHNIQUE: Multiple real-time sonographic images of the abdominal right upper quadrant were obtained assessing grayscale appearance and color Doppler flow FINDINGS: Pancreas is obscured by bowel gas. There is increased echogenicity of the hepatic parenchyma without focal mass identified suggesting fatty infiltration. No intrahepatic biliary ductal dilation identified. The gallbladder is unremarkable without shadowing cholelithiasis or pericholecystic fluid collections. No wall thickening identified. Common bile duct is normal, 4 mm. The imaged right kidney is unremarkable measuring up to 10 cm in length. IMPRESSION: 1. No cholelithiasis or sonographic evidence of acute cholecystitis. No biliary ductal dilation. 2. Pancreas obscured by bowel gas. 3. Increased echogenicity of the hepatic parenchyma suggests fatty infiltration. The above report was generated using voice recognition software. It may contain grammatical, syntax or spelling errors. Electronically signed by: Mason Diaz M.D. 08/28/2017 10:17 AM Dictated Date/Time: 08/28/2017 10:14 AM Laboratory Results 08/28/17 06:54 Red Blood Count 5.84, Mean Corpuscular Volume 82.0, Mean Corpuscular Hemoglobin 27.9, Mean Corpuscular Hemoglobin Concent 34.0, Mean Platelet Volume 9.0, Neutrophils (%) (Auto) 82.6, Lymphocytes (%) (Auto) 13.2, Monocytes (%) (Auto) 3.9, Eosinophils (%) (Auto) 0.1, Basophils (%) (Auto) 0.1, Neutrophils # (Auto) 11.19, Lymphocytes # (Auto) 1.79, Monocytes # (Auto) 0.53, Eosinophils # (Auto) 0.01, Basophils # (Auto) 0.01 08/28/17 06:54 Test 08/28/17 06:54 White Blood Count 13.55 K/uL (4.8-10.8) Red Blood Count 5.84 M/uL (4.7-6.1) Hemoglobin 16.3 g/dL (14.0-18.0) Hematocrit 47.9 % (42-52) Mean Corpuscular Volume 82.0 fL (80-100) Mean Corpuscular Hemoglobin 27.9 pg (25-34) Mean Corpuscular Hemoglobin Concent 34.0 g/dl (32-36) Platelet Count 293 K/uL (130-400) Mean Platelet Volume 9.0 fL (7.4-10.4) Neutrophils (%) (Auto) 82.6 % Lymphocytes (%) (Auto) 13.2 % Monocytes (%) (Auto) 3.9 % Eosinophils (%) (Auto) 0.1 % Basophils (%) (Auto) 0.1 % Neutrophils # (Auto) 11.19 K/uL (1.4-6.5) Lymphocytes # (Auto) 1.79 K/uL (1.2-3.4) Monocytes # (Auto) 0.53 K/uL (0.11-0.59) Eosinophils # (Auto) 0.01 K/uL (0-0.5) Basophils # (Auto) 0.01 K/uL (0-0.2) RDW Standard Deviation 41.7 fL (36.4-46.3) RDW Coefficient of Variation 14.1 % (11.5-14.5) Immature Granulocyte % (Auto) 0.1 % Immature Granulocyte # (Auto) 0.02 K/uL (0.00-0.02) Anion Gap 8.0 mmol/L (3-11) Est Creatinine Clear Calc Drug Dose 92.3 ml/min Estimated GFR () 109.3 Estimated GFR (Non- 94.3 BUN/Creatinine Ratio 28.3 (10-20) Calcium Level 9.6 mg/dl (8.5-10.1) Total Bilirubin 0.4 mg/dl (0.2-1) Direct Bilirubin < 0.1 mg/dl (0-0.2) Aspartate Amino Transf (AST/SGOT) 18 U/L (15-37) Alanine Aminotransferase (ALT/SGPT) 20 U/L (12-78) Alkaline Phosphatase 148 U/L (45-117) Troponin I < 0.015 ng/ml (0-0.045) Total Protein 8.0 gm/dl (6.4-8.2) Albumin 4.2 gm/dl (3.4-5.0) Lipase 97 U/L (73-393) Laboratory results as reviewed by me. Medications Administered Medications (Trade) Dose Ordered Sig/Bruce Route Start Time Stop Time Status Last Admin Dose Admin Fentanyl Citrate (Fentanyl Inj) 100 mcg NOW STAT IV 08/28/17 06:30 08/28/17 06:31 DC 08/28/17 06:38 100 MCG Ondansetron HCl (Zofran Inj) 4 mg NOW STAT IV 08/28/17 06:30 08/28/17 06:31 DC 08/28/17 06:38 4 MG Hydromorphone HCl (Dilaudid Inj) 1 mg NOW STAT IV 08/28/17 08:29 08/28/17 08:30 DC 08/28/17 08:45 1 MG Al Hydroxide/Mg Hydroxide (Maalox Susp) 30 ml STK-MED ONCE .ROUTE 08/28/17 08:32 08/28/17 08:33 DC 08/28/17 08:46 30 ML Lidocaine HCl (Viscous Lidocaine 2% Soln) 20 ml STK-MED ONCE .ROUTE 08/28/17 08:32 08/28/17 08:33 DC 08/28/17 08:46 20 ML ECG Indication: abdominal pain Rate (beats per minute): 96 Rhythm: normal sinus Findings: ST depression (Anterior), no acute ischemic change, no ectopy Comparison ECG Date: mild change from June 2017 Change: repeat ECG: normal sinus rhythm, rate of 71, no ectopy, no ischemia; no change from ECG earlier in the day as well as ECG from 2016 ED Course 0627: The patient was evaluated in room B10. A complete history and physical exam was performed. 0630: Ordered Zofran Inj 4 mg IV, Fentanyl Inj 100 mcg IV. 0715: I checked on the patient and he is feeling better. 0828: The patient notes that his pain has returned. I discussed doing an ultrasound and a repeat troponin which he agrees to. 0829: Ordered Gi Cocktail 24 ml PO, Dilaudid Inj 1 mg IV. 0832: Ordered Lidocaine HCl 20 ml, Maalox Susp 30 ml. 1035: The patient is feeling much better, I advised against further NSAIDs. aspirin, caffeine, and spicy foods. I told him to stop his prednisone, and advised him to follow up with his PCP as soon as possible. I also made him aware of the appendix finding on CT. 1040: Reevaluated the patient. Discussed results and discharge instructions: He verbalized understanding and agreement. The patient is ready for discharge. Medical Decision Differential: Cholecystitis, Gallbladder disfunction, Hepatic Disfunction, Gastritis/PUD, Pancreatitis, ACS, Aortic Pathology, amongst other pathologies entertained. 62 yr old male arrives with epigastric pain. EKG with V3 ST depressions not seen in jun but after review they were present on previous EKG. 2 EKGs same. Trop x [address] abdo without acute findings. US negative. Patient treated with IV pain medications which given his high dose daily narcotic is not unreasonable he would need in acute pain setting. Suspect this primarily is Gastritis related as he just finished course of prednisone. Advised BID protonix for next week, follow up with PCP, RTED if worsening or other concerns. Start 1 week Carafate. Advised no more excedrin, nsaids, prednisone, etc. Stable at discharge. Medication Reconcilliation Current Medication List: was personally reviewed by me Blood Pressure Screening Patient's blood pressure: Elevated blood pressure Blood pressure disposition: Elevated BP felt to be situational Impression Primary Impression: Epigastric abdominal pain Scribe Attestation The scribe's documentation has been prepared under my direction and personally reviewed by me in its entirety. I confirm that the note above accurately reflects all work, treatment, procedures, and medical decision making performed by me. Departure Information Dispostion Home / Self-Care Prescriptions Sucralfate (CARAFATE) 1 Gm Tab 1 GM PO ACHS for 7 Days, #28 TAB Prov: Lucas Schmitt M.D. 08/28/17 Referrals Johnathan Rain III, M.D. (PCP) Forms Call Back Authorization, HOME CARE DOCUMENTATION FORM, IMPORTANT VISIT INFORMATION Patient Instructions ED Epigastric Pain [facility], My [facility] Additional Instructions Please take your Protonix twice daily for the next week. It is important you follow up with your PCP. Do not take any prednisone, NSAIDs (Motrin, Aleve, Naproxen, etc), Aspirin, and avoid spicy foods and caffeine. Return immediately or call 911 if severe worsening of pain, fevers, vomiting, passing out, or other concerns.
[2017-08-28] MEDS ORDERED: OPTIRAY 320 IV PRN (06:45)
[2017-08-28 07:03] LABS: BASO % 0.1 %; BASO ABS # 0.01 K/uL (0-0.2); COMPLETE YES; EOS % 0.1 %; HEMATOCRIT 47.9 % (42-52); IG% 0.1 %; LYMPH % 13.2 %; LYMPH ABS # 1.79 K/uL (1.2-3.4); MEAN CORPUSCULAR HEMOGLOBIN 27.9 pg (25-34); MONO % 3.9 %; NEUT % 82.6 %; PLATELET COUNT 293 K/uL (130-400); RED BLOOD COUNT 5.84 M/uL (4.7-6.1); WHITE BLOOD COUNT 13.55 K/uL (4.8-10.8)
[2017-08-28 07:26] LABS: ALT/SGPT 20 U/L (12-78); AST/SGOT 18 U/L (15-37); BLOOD UREA NITROGEN 23 mg/dl (7-18); BUN/CREATININE RATIO 28.3 (10-20); CALCIUM 9.6 mg/dl (8.5-10.1); CARBON DIOXIDE 25 mmol/L (21-32); CHLORIDE 108 mmol/L (98-107); CREATININE 0.83 mg/dl (0.60-1.40); GLUCOSE 122 mg/dl (70-99); SODIUM 141 mmol/L (136-145)
[2017-08-28] MEDS ORDERED: BENZ100C84 PO (07:30)
[2017-08-28 07:31] LABS: ALKALINE PHOSPHATASE 148 U/L (45-117)
--- NOTE | 2017-08-28 08:19 | DIAGNOSTIC IMAGING REPORT ---
ABDOMEN AND PELVIS CT WITH IV CONTRAST CT DOSE: 522.57 mGy.cm HISTORY: Acute epigastric abdominal pain. epigastric pain now diffuse post prednisone use TECHNIQUE: Multiaxial CT images of the abdomen and pelvis were performed following the use of intravenous contrast. 92 mL Optiray 320 IV contrast was administered A dose lowering technique was utilized adhering to the principles of ALARA. COMPARISON STUDY: MRCP 07/21/2015, ultrasound of the abdomen 11/06/2012. FINDINGS: Imaged lung bases are generally clear. There is no pneumoperitoneum identified. The imaged inferior cardiac chambers are unremarkable. Nonspecific low attenuating 4 mm lesion of the subserosal right hepatic lobe, image 25 series 2 is too small to characterize however suggests a hepatic cyst. Liver is otherwise unremarkable. No intrahepatic biliary ductal dilation. Spleen, pancreas and adrenal glands are unremarkable. There is mild distention of the gallbladder which is otherwise within normal limits. 4 mm low attenuating lesion of the anterior interpolar right kidney suggests cyst. There is no renal calculi or hydronephrosis. Ureters and urinary bladder are within normal limits. Prostate is mildly enlarged. Phleboliths are seen within the pelvis. The abdominal aorta is normal in course and caliber with mild mixed plaquing. No bulky adenopathy. Small duodenal diverticulum. No bowel obstruction or focal bowel wall thickening. Scattered noninflamed colonic diverticula. There is moderate stool volume of the ascending and transverse colon. The appendix contains high attenuating debris as seen on image 255 series 3 which may reflect an appendicolith. No CT evidence of acute appendicitis. Mild nonspecific stranding of the left subcutaneous anterior abdominal wall, image 263 series 3. The bones appear intact. IMPRESSION: 1. No acute intra-abdominal or intrapelvic abnormality identified. 2. High attenuating material within the distal appendiceal lumen may reflect appendicolith. No CT evidence of acute appendicitis. 3. Colonic diverticulosis without diverticulitis. 4. Moderate stool volume of the ascending and transverse colon suggests constipation. 5. Prostamegaly. Electronically signed by: Mason Diaz M.D. 08/28/2017 8:18 AM Dictated Date/Time: 08/28/2017 8:11 AM
[2017-08-28] MEDS ORDERED: GI COCKTAIL PO STA (08:29)
[2017-08-28] MEDS ORDERED: HYDROmorphone INJ 1 MG/ML SYR IV STA (08:29)
[2017-08-28] MEDS ORDERED: ALUMINUM/MAGNESIUM SUSP 30 ML UDC ONE (08:32)
[2017-08-28] MEDS ORDERED: LIDOCAINE HCL 2% VISC SOLN 20 ML UDC ONE (08:32)
--- NOTE | 2017-08-28 10:18 | DIAGNOSTIC IMAGING REPORT ---
GALLBLADDER-ABD LIMITED HISTORY: 62 years-old Male persistent epigastric pain/discomfort acute epigastric abdominal pain COMPARISON: CT of same day, right upper quadrant ultrasound 07/16/2015 TECHNIQUE: Multiple real-time sonographic images of the abdominal right upper quadrant were obtained assessing grayscale appearance and color Doppler flow FINDINGS: Pancreas is obscured by bowel gas. There is increased echogenicity of the hepatic parenchyma without focal mass identified suggesting fatty infiltration. No intrahepatic biliary ductal dilation identified. The gallbladder is unremarkable without shadowing cholelithiasis or pericholecystic fluid collections. No wall thickening identified. Common bile duct is normal, 4 mm. The imaged right kidney is unremarkable measuring up to 10 cm in length. IMPRESSION: 1. No cholelithiasis or sonographic evidence of acute cholecystitis. No biliary ductal dilation. 2. Pancreas obscured by bowel gas. 3. Increased echogenicity of the hepatic parenchyma suggests fatty infiltration. The above report was generated using voice recognition software. It may contain grammatical, syntax or spelling errors. Electronically signed by: Mason Diaz M.D. 08/28/2017 10:17 AM Dictated Date/Time: 08/28/2017 10:14 AM
[2017-08-28 10:30] VITALS: BP 167/73; PULSE 84; O2SAT 100
[2017-08-28] MEDS ORDERED: SUCR1TAB29 PO (10:32)
[2017-08-28] MEDS ORDERED: MOME6000 NAE (23:16)
[2017-08-28] MEDS ORDERED: ALBU18002 INH (23:16)
[2017-08-30] MEDS ORDERED: PRT40 PO (16:02)
== END 2017-08-28 11:05 | disposition home or self-care (01) ==
LOC: EDBD 06:00 → C.EDB 06:04
DX: R10.13 Epigastric pain (principal); I10 Essential (primary) hypertension; N40.0 Benign prostatic hyperplasia without lower urinary tract symptoms; M54.2 Cervicalgia; G89.29 Other chronic pain; K21.9 Gastro-esophageal reflux disease without esophagitis; Z86.73 Personal history of transient ischemic attack (TIA), and cerebral infarction without residual deficits; E78.5 Hyperlipidemia, unspecified; K58.9 Irritable bowel syndrome, unspecified; E23.0 Hypopituitarism; M47.812 Spondylosis without myelopathy or radiculopathy, cervical region; Z82.49 Family history of ischemic heart disease and other diseases of the circulatory system; Z79.02 Long term (current) use of antithrombotics/antiplatelets; Z79.52 Long term (current) use of systemic steroids; Z79.899 Other long term (current) drug therapy

== ENCOUNTER 2017-08-28 14:04 | Emergency (ER) | payer OTHER, BC ==
[~2017-08-28] VITALS: Ht 175.3 cm; Wt 74.9 kg
[~2017-08-28 14:04] MED LIST changes: +BENZ100C84 PO; +SUCR1TAB29 PO
[2017-08-28 14:14] VITALS: Ht 175.3 cm; Wt 74.9 kg
[2017-08-28] MEDS ORDERED: GI COCKTAIL PO STA (14:35)
[2017-08-28] MEDS ORDERED: MoRPHine SULFATE 10 MG/ML CARP/VIAL IV STA (14:36)
[2017-08-28] MEDS ORDERED: PANTOprazole INJ 40 MG in SYRINGE 0 ML IV ONE (14:45)
[2017-08-28] MEDS ORDERED: LIDOCAINE HCL 2% VISC SOLN 20 ML UDC ONE (14:46)
[2017-08-28] MEDS ORDERED: ALUMINUM/MAGNESIUM SUSP 30 ML UDC ONE (14:46)
[2017-08-28] MEDS ORDERED: MoRPHine SULFATE 2 MG/ML CARP ONE (15:07)
[2017-08-28] MEDS ORDERED: MoRPHine SULFATE 4 MG/ML 1 ML CARP\\VIAL ONE (15:08)
[2017-08-28 15:18] LABS: BASO % 0.2 %; BASO ABS # 0.03 K/uL (0-0.2); COMPLETE YES; EOS % 0.2 %; HEMATOCRIT 48.6 % (42-52); IG% 0.3 %; LYMPH % 17.8 %; LYMPH ABS # 2.57 K/uL (1.2-3.4); MEAN CELL VOLUME 82.8 fL (80-100); MEAN CORPUSCULAR HEMOGLOBIN 28.3 pg (25-34); MEAN CORPUSCULAR HGB CONC 34.2 g/dl (32-36); MEAN PLATELET VOLUME 9.3 fL (7.4-10.4); MONO % 6.9 %; NEUT % 74.6 %; PLATELET COUNT 306 K/uL (130-400); RED BLOOD COUNT 5.87 M/uL (4.7-6.1); WHITE BLOOD COUNT 14.43 K/uL (4.8-10.8)
[2017-08-28 15:51] LABS: ALKALINE PHOSPHATASE 153 U/L (45-117); ALT/SGPT 19 U/L (12-78); AST/SGOT 18 U/L (15-37); BLOOD UREA NITROGEN 24 mg/dl (7-18); BUN/CREATININE RATIO 26.9 (10-20); CALCIUM 9.4 mg/dl (8.5-10.1); CARBON DIOXIDE 26 mmol/L (21-32); CHLORIDE 104 mmol/L (98-107); CREATININE 0.91 mg/dl (0.60-1.40); GLUCOSE 93 mg/dl (70-99)
[2017-08-28 16:01] LABS: POTASSIUM 3.3 mmol/L (3.5-5.1)
[2017-08-28 16:02] LABS: SODIUM 142 mmol/L (136-145)
[2017-08-28 16:16] VITALS: BP 115/76; PULSE 76; O2SAT 98
--- NOTE | 2017-08-28 19:04 | EMERGENCY ROOM VISIT NOTE ---
History Report prepared by Rosalba: Sebastien Castillo Under the Supervision of: Dr. Nick Lan D.O. First contact with patient: 14:25 Chief Complaint: GI ASSESSMENT Stated Complaint: GASTRIC PAIN, HEARTBURN,NAUSEA History of Present Illness The patient is a 62 year old male who presents to the Emergency Room with complaints of worsening GI issues that started 6 weeks ago. He was seen he earlier this morning, and was just discharged 2 hours ago. The patient notes that for the past 6 weeks, he has had reflux-type burning in his abdomen, which goes up to his upper abdomen. He says that he was going to have an endoscopy, as in his past bouts of this type of burning he has had an ulcer which causes a narrowing. He states that he follows-up with Dr. Leong of GI. He notes that eating may make the burning worse, and nothing makes the pain better. The patient says that yesterday he started to have severe abdominal pain with some dry heaving. He states that the pain has been intermittent, but has been more constant today. When the patient was here this morning, he had a CT of his abdomen/pelvis, and ultrasound, which were both negative. He says that he was diagnosed with a gastritis that was irritated by Prednisone, and was sent home, but his pain flared right back up again, so he came back here. The patient states that he has never had abdominal pain like this before. He denies any vomiting, fevers, chest pain, diarrhea, or burning with urination. He says that his last bowel movement was this morning, and he has no history of abdominal surgeries. He states that he last ate yesterday. No exertional symptoms. No shortness of breath. Source of History: patient, family Onset: 6 weeks ago Position: other (global - GI issues) Quality: other (reflux-type pain) Timing: worsening Modifying Factors (Worsening): eating Associated Symptoms: + abdominal pain, No fevers, No chest pain, No vomiting , No diarrhea, No urinary symptoms Note: Associated symptoms: Dry heaving. Review of Systems See HPI for pertinent positives & negatives. A total of 10 systems reviewed and were otherwise negative. 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 (12) Pituitary adenoma (13) Spondylosis, cervical (14) Tonsillectomy Surgical Problems: (1) H/O elbow surgery (2) S/P Achilles tendon repair (3) S/P cervical spinal fusion (4) S/P nasal septoplasty (5) S/p removal of turbinate bones (6) S/P shoulder surgery (7) S/P tonsillectomy and adenoidectomy (8) S/P UPPP (uvulopalatopharyngoplasty) (9) Status post transsphenoidal pituitary resection Family History Hypertension FATHER MOTHER Social History Smoking Status: Unknown if Ever Smoked Alcohol Use: none Drug Use: none Marital Status: single Housing Status: lives alone Current/Historical Medications Scheduled Amitriptyline Hcl (Elavil), 75 MG PO HS Amlodipine (Norvasc), 5 MG PO QAM Pillffp-Ctqvrszctsxjr-Weyprrim (Excedrin Extra Strength), 2 TABS PO UD Atenolol (Tenormin), 25 MG PO BID Atorvastatin (Lipitor), 80 MG PO QPM Azithromycin (Azithromycin), 1 TAB PO DAILY Clobetasol Propionate (Temovate), 1 APPLN TOP BID Clopidogrel (Plavix), 75 MG PO QAM Dicyclomine Hcl (Dicyclomine Hcl), 10 MG PO TID Diphenhydramine-Acetaminophen (Excedrin Pm), 2 TABS PO HS Docusate Sodium (Docusate Sodium), 100 MG PO BID Gabapentin (Neurontin), 400 MG PO TID Hydrocortisone (Cortef), 10 MG PO QAM Levothyroxine Sodium (Levothyroxine Sodium), 75 MCG PO QAM Lubiprostone (Amitiza), 24 MCG PO BID Morphine Sulfate (Morphine Sulfate Er), 30 MG PO BID Multiple Vitamins W/ Minerals (Centrum Silver Adult 50+), 1 TAB PO DAILY Pantoprazole (Protonix), 40 MG PO QAM Prednisone (Prednisone), 1 TAB PO UD Senna (Senokot), 1 TABS PO BID Sucralfate (Carafate), 1 GM PO ACHS Scheduled PRN Benzonatate (Tessalon Perles), 100 MG PO for Cough Menthol (Topical Analgesic) (Icy Hot Patch), 1 PATCH EXT DAILY PRN for Pain Oxycodone/Acetaminophen 10MG/325MG (Percocet 10MG/325MG), 1 TAB PO Q4H PRN for Pain Promethazine HCl (Promethazine HCl), 25 MG PO Q6H PRN for Nausea Simethicone (Gas-X), 80 MG PO UD PRN for gas Tizanidine (Zanaflex), 2 TABS PO TID PRN for Muscle Spasms Allergies Coded Allergies: No Known Allergies (Unverified , 08/28/17) Physical Exam Vital Signs Date Time Temp Pulse Resp B/P (MAP) Pulse Ox O2 Delivery O2 Flow Rate FiO2 08/28/17 16:16 76 20 115/76 98 Room Air 08/28/17 14:14 36.9 87 20 98 Room Air Physical Exam GENERAL: Laying on right side, in mild distress holding abdomen. EYE EXAM: normal conjunctiva. OROPHARYNX: no exudate, no erythema, lips, buccal mucosa, and tongue normal and mucous membranes are moist NECK: supple, no nuchal rigidity, no adenopathy, non-tender LUNGS: Clear to auscultation. Normal chest wall mechanics HEART: no murmurs, S1 normal and S2 normal ABDOMEN: abdomen soft, non-tender, normo-active bowel sounds, no masses, no rebound or guarding. BACK: Back is symmetrical on inspection and there is no deformity, no midline tenderness, no CVA tenderness. SKIN: no rashes and no bruising UPPER EXTREMITIES: upper extremities are grossly normal. LOWER EXTREMITIES: No pitting edema. NEURO EXAM: Normal sensorium, cranial nerves II-XII grossly intact, normal speech, no gross weakness of arms, no gross weakness of legs. Medical Decision & Procedures Laboratory Results 08/28/17 15:00 Red Blood Count 5.87, Mean Corpuscular Volume 82.8, Mean Corpuscular Hemoglobin 28.3, Mean Corpuscular Hemoglobin Concent 34.2, Mean Platelet Volume 9.3, Neutrophils (%) (Auto) 74.6, Lymphocytes (%) (Auto) 17.8, Monocytes (%) (Auto) 6.9, Eosinophils (%) (Auto) 0.2, Basophils (%) (Auto) 0.2, Neutrophils # (Auto) 10.77, Lymphocytes # (Auto) 2.57, Monocytes # (Auto) 0.99, Eosinophils # (Auto) 0.03, Basophils # (Auto) 0.03 08/28/17 15:00 Test 08/28/17 15:00 White Blood Count 14.43 K/uL (4.8-10.8) Red Blood Count 5.87 M/uL (4.7-6.1) Hemoglobin 16.6 g/dL (14.0-18.0) Hematocrit 48.6 % (42-52) Mean Corpuscular Volume 82.8 fL (80-100) Mean Corpuscular Hemoglobin 28.3 pg (25-34) Mean Corpuscular Hemoglobin Concent 34.2 g/dl (32-36) Platelet Count 306 K/uL (130-400) Mean Platelet Volume 9.3 fL (7.4-10.4) Neutrophils (%) (Auto) 74.6 % Lymphocytes (%) (Auto) 17.8 % Monocytes (%) (Auto) 6.9 % Eosinophils (%) (Auto) 0.2 % Basophils (%) (Auto) 0.2 % Neutrophils # (Auto) 10.77 K/uL (1.4-6.5) Lymphocytes # (Auto) 2.57 K/uL (1.2-3.4) Monocytes # (Auto) 0.99 K/uL (0.11-0.59) Eosinophils # (Auto) 0.03 K/uL (0-0.5) Basophils # (Auto) 0.03 K/uL (0-0.2) RDW Standard Deviation 42.1 fL (36.4-46.3) RDW Coefficient of Variation 13.9 % (11.5-14.5) Immature Granulocyte % (Auto) 0.3 % Immature Granulocyte # (Auto) 0.04 K/uL (0.00-0.02) Anion Gap 12.0 mmol/L (3-11) Est Creatinine Clear Calc Drug Dose 84.2 ml/min Estimated GFR () 104.3 Estimated GFR (Non- 90.0 BUN/Creatinine Ratio 26.9 (10-20) Calcium Level 9.4 mg/dl (8.5-10.1) Total Bilirubin 0.5 mg/dl (0.2-1) Direct Bilirubin 0.1 mg/dl (0-0.2) Aspartate Amino Transf (AST/SGOT) 18 U/L (15-37) Alanine Aminotransferase (ALT/SGPT) 19 U/L (12-78) Alkaline Phosphatase 153 U/L (45-117) Troponin I < 0.015 ng/ml (0-0.045) Total Protein 7.8 gm/dl (6.4-8.2) Albumin 4.1 gm/dl (3.4-5.0) Lipase 110 U/L (73-393) Laboratory results per my review. Medications Administered Medications (Trade) Dose Ordered Sig/Bruce Route Start Time Stop Time Status Last Admin Dose Admin Pantoprazole Sodium 40 mg/ Syringe 10 ml @ 5 mls/min NOW ONCE IV 08/28/17 14:45 08/28/17 14:46 DC 08/28/17 14:45 5 MLS/MIN Morphine Sulfate (MoRPHine SULFATE INJ) 6 mg NOW STAT IV 08/28/17 14:36 08/28/17 14:37 DC 08/28/17 14:36 6 MG Al Hydroxide/Mg Hydroxide (Maalox Susp) 30 ml STK-MED ONCE .ROUTE 08/28/17 14:46 08/28/17 14:47 DC 08/28/17 14:49 30 ML Lidocaine HCl (Viscous Lidocaine 2% Soln) 20 ml STK-MED ONCE .ROUTE 08/28/17 14:46 08/28/17 14:47 DC 08/28/17 14:49 20 ML ED Course ED COURSE: Vital signs were reviewed and showed normal vitals. The patients medical record was reviewed The above diagnostic studies were performed and reviewed. ED treatments and interventions as stated above. 1425: The patient was evaluated in room B8. A complete history and physical examination was performed. 1435: Ordered GI Cocktail 24 ml PO. 1436: Ordered Morphine Sulfate Inj 6 mg IV. 1445: Ordered Pantoprazole Sodium 40 mg/Syringe 10 ml @ 5 mls/min IV. 1609: Upon reevaluation, the patient is feeling better. I offered evaluation for further treatment, but he declined. I discussed my findings with the patient and he understands and agrees with the treatment plan. Based on the patients age, coexisting illnesses, exam and lab findings the decision to treat as an outpatient was made. The patient remained stable while under my care. The patient appeared well at the time of discharge. Medical Decision Differential diagnoses includes but is not limited to gastritis, peptic ulcer disease, GERD, gallbladder disease, pancreatitis, small bowel obstruction, acute coronary syndrome, pericarditis, ischemic bowel, irritable bowel disease, irritable bowel syndrome, appendicitis, diverticulitis, malignancy, hernia, urinary tract infection, torsion, perforation, trauma, infectious. Patient is a 62-year-old male who presents to ER for abdominal pain which she describes as a burning. He notes that this is slightly worse after eating. No other exacerbating or remitting factors. He was here earlier today and had a GI cocktail and IV fentanyl with improvement of his pain. He also had a CT of the abdomen and pelvis which was unremarkable along with a right upper quadrant ultrasound. Labs were repeated today and were fairly unchanged. No signs of pancreatitis or transaminitis. Bilirubin is fairly unremarkable. He does have a mild leukocytosis which I favor is secondary to the vomiting. His abdominal exam is completely benign. No signs peritonitis. Based on symptoms and do feel this to be GI in nature. He did have 2. Previous troponin and EKGs with chest pain that has been present for longer than 6 hours. I did repeat a troponin and this was unremarkable. Patient was given a GI cocktail along with IV Protonix and felt significantly better. He was given small dose of morphine. He notes he still has the pain but the edge has been taken off. He is sitting up in the chair. Offered/discussed admission but noted that we were not finding anything on labs or imaging. Patient would prefer to go home. He was given prescription for a GI cocktail. I noted that if his symptoms worsen he will need to return for admission and endoscopy. He does have an endoscopy scheduled for this coming Tuesday which was canceled as it was scheduled for last Tuesday with Dr. leong secondary to bronchitis. Patient declined any dark tarry stools or blood in stool. Instructed the patient not to drive for the remainder of the night. Discussed with Pt concerning signs and symptoms to watch out for. Pt was instructed to follow up with their PCP and discussed with the patient their option to return to the ED at anytime for persistent or worsening symptoms. The appropriate anticipatory guidance and out-patient management, including indications for return to the emergency department, were explained at length to the patient and understood. Medication Reconcilliation Current Medication List: was personally reviewed by me Blood Pressure Screening Patient's blood pressure: Normal blood pressure Impression Primary Impression: GERD (gastroesophageal reflux disease) Additional Impression: Gastritis Scribe Attestation The scribe's documentation has been prepared under my direction and personally reviewed by me in its entirety. I confirm that the note above accurately reflects all work, treatment, procedures, and medical decision making performed by me. Departure Information Dispostion Home / Self-Care Referrals Johnathan Rain III, M.D. (PCP) Patient Instructions ED GERD, Gastritis Tx, My [facility] Additional Instructions Please follow up with your primary care doctor with in the next 24 hours. Any worsening of your symptoms, please return to the ED immediately. This includes any fevers greater than 100.4, worsening pain, chest pain, shortness breath, persistent nausea, vomiting, unable to eat or drink, or any other concerning signs or symptoms from your standpoint. Please take your previous medications as prescribed. No driving for the next 12-24 hours. Problem Qualifiers Primary Impression: GERD (gastroesophageal reflux disease) Esophagitis presence: esophagitis presence not specified Qualified Codes: K21.9 - Gastro-esophageal reflux disease without esophagitis Additional Impression: Gastritis Gastritis type: unspecified gastritis Chronicity: acute Gastritis bleeding : presence of bleeding unspecified Qualified Codes: K29.00 - Acute gastritis without bleeding
[2017-08-28] MEDS ORDERED: ALBU18002 INH ×2 (23:16)
[2017-08-28] MEDS ORDERED: MOME6000 NAE ×2 (23:16)
[2017-08-30] MEDS ORDERED: PRT40 PO ×2 (16:02)
== END 2017-08-28 16:45 | disposition home or self-care (01) ==
LOC: C.EDB 14:05
DX: K21.9 Gastro-esophageal reflux disease without esophagitis (principal); K29.00 Acute gastritis without bleeding; I10 Essential (primary) hypertension; N40.0 Benign prostatic hyperplasia without lower urinary tract symptoms; M96.1 Postlaminectomy syndrome, not elsewhere classified; M54.2 Cervicalgia; G89.29 Other chronic pain; M46.92 Unspecified inflammatory spondylopathy, cervical region; E78.5 Hyperlipidemia, unspecified; K58.9 Irritable bowel syndrome, unspecified; E23.0 Hypopituitarism; M47.812 Spondylosis without myelopathy or radiculopathy, cervical region; Z82.49 Family history of ischemic heart disease and other diseases of the circulatory system

== ENCOUNTER 2017-08-28 20:00 | Inpatient (IN) | payer OTHER, BC ==
[~2017-08-28] VITALS: Ht 175.3 cm; Wt 74.1 kg
[2017-08-28] MEDS ORDERED: GI COCKTAIL PO STA (20:12)
[2017-08-28] MEDS ORDERED: ONDANSETRON INJ 2 MG/ML 2 ML VIAL IV STA (20:12)
[2017-08-28] MEDS ORDERED: SODIUM CHLORIDE 0.9% 1000ML 1,000 ML IV STA (20:12)
[2017-08-28] MEDS ORDERED: HYDROmorphone INJ 1 MG/ML SYR IV STA (20:12)
[2017-08-28 20:44] LABS: BASO % 0.2 %; BASO ABS # 0.03 K/uL (0-0.2); COMPLETE YES; EOS % 0.5 %; HEMATOCRIT 46.8 % (42-52); IG% 0.2 %; LYMPH % 22.6 %; LYMPH ABS # 2.83 K/uL (1.2-3.4); MEAN CELL VOLUME 82.2 fL (80-100); MEAN CORPUSCULAR HEMOGLOBIN 27.4 pg (25-34); MEAN CORPUSCULAR HGB CONC 33.3 g/dl (32-36); MEAN PLATELET VOLUME 9.1 fL (7.4-10.4); NEUT % 69.5 %; PLATELET COUNT 302 K/uL (130-400); RED BLOOD COUNT 5.69 M/uL (4.7-6.1); WHITE BLOOD COUNT 12.51 K/uL (4.8-10.8)
[2017-08-28] MEDS ORDERED: LIDOCAINE HCL 2% VISC SOLN 20 ML UDC ONE (20:54)
[2017-08-28] MEDS ORDERED: ALUMINUM/MAGNESIUM SUSP 30 ML UDC ONE (20:54)
[2017-08-28] MEDS ORDERED: ONDANSETRON INJ 2 MG/ML 2 ML VIAL IV PRN (21:00)
[2017-08-28 21:04] LABS: BUN/CREATININE RATIO 31.9 (10-20); CALCIUM 9.2 mg/dl (8.5-10.1); CREATININE 0.9 mg/dl (0.60-1.40); POTASSIUM 3.4 mmol/L (3.5-5.1)
[2017-08-28 21:59] VITALS: BP 159/72; PULSE 74; TEMP 36.9; O2SAT 99; Ht 175.3 cm; Wt 74.1 kg
--- NOTE | 2017-08-28 21:59 | EMERGENCY ROOM VISIT NOTE ---
History Report prepared by Rosalba: Sebastien Castillo Under the Supervision of: Dr. Nick Lan D.O. First contact with patient: 20:07 Chief Complaint: ABDOMINAL PAIN Stated Complaint: SERIOUS HEART BURN, AND STOMACH ISSUES History of Present Illness The patient is a 62 year old male who presents to the Emergency Room with complaints of worsening abdominal pain that started yesterday. He says that for about a month, he has had reflux-type burning pain in his abdomen that works up to his upper abdomen, but yesterday, he started developing a different severe abdominal pain. The patient states that the pain waxes and wanes. He was seen here this morning as well as a second time around 6 hours ago, and had an ultrasound, CT, and blood work done, which were all unremarkable other than some leukocytosis. He says that about an hour ago, his pain flared up again after taking some of his evening pills. He notes that when he was here earlier, and the GI cocktail and Fentanyl helped decrease his pain. Source of History: patient Onset: Yesterday Position: abdomen Symptom Intensity: severe Quality: other (was here twice earlier today) Timing: worsening Modifying Factors (Relieving): other (Fentanyl, GI Cocktail) Note: Associated symptoms: Reflux-type pain in abdomen for a month. Review of Systems See HPI for pertinent positives & negatives. A total of 10 systems reviewed and were otherwise negative. 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 (13) Pituitary adenoma (14) Spondylosis, cervical (15) Tonsillectomy Surgical Problems: (1) H/O elbow surgery (2) S/P Achilles tendon repair (3) S/P cervical spinal fusion (4) S/P nasal septoplasty (5) S/p removal of turbinate bones (6) S/P shoulder surgery (7) S/P tonsillectomy and adenoidectomy (8) S/P UPPP (uvulopalatopharyngoplasty) (9) Status post transsphenoidal pituitary resection Family History Hypertension FATHER MOTHER Social History Smoking Status: Unknown if Ever Smoked Alcohol Use: none Drug Use: none Marital Status: single Housing Status: lives alone Current/Historical Medications Scheduled Amitriptyline Hcl (Elavil), 75 MG PO HS Amlodipine (Norvasc), 5 MG PO QAM Tobotpm-Jzkkpzzjzzjab-Gqiocift (Excedrin Extra Strength), 2 TABS PO UD Atenolol (Tenormin), 25 MG PO BID Atorvastatin (Lipitor), 80 MG PO QPM Azithromycin (Azithromycin), 1 TAB PO DAILY Clobetasol Propionate (Temovate), 1 APPLN TOP BID Clopidogrel (Plavix), 75 MG PO ON HOLD Dicyclomine Hcl (Dicyclomine Hcl), 10 MG PO TID Diphenhydramine-Acetaminophen (Excedrin Pm), 2 TABS PO HS Docusate Sodium (Docusate Sodium), 100 MG PO BID Gabapentin (Neurontin), 400 MG PO TID Hydrocortisone (Cortef), 10 MG PO QAM Levothyroxine Sodium (Levothyroxine Sodium), 75 MCG PO QAM Lubiprostone (Amitiza), 24 MCG PO BID Morphine Sulfate (Morphine Sulfate Er), 30 MG PO BID Multiple Vitamins W/ Minerals (Centrum Silver Adult 50+), 1 TAB PO DAILY Pantoprazole (Protonix), 40 MG PO QAM Prednisone (Prednisone), 1 TAB PO UD Senna (Senokot), 1 TABS PO BID Sucralfate (Carafate), 1 GM PO ACHS Scheduled PRN Benzonatate (Tessalon Perles), 100 MG PO for Cough Menthol (Topical Analgesic) (Icy Hot Patch), 1 PATCH EXT DAILY PRN for Pain Oxycodone/Acetaminophen 10MG/325MG (Percocet 10MG/325MG), 1 TAB PO Q4H PRN for Pain Promethazine HCl (Promethazine HCl), 25 MG PO Q6H PRN for Nausea Simethicone (Gas-X), 80 MG PO UD PRN for gas Tizanidine (Zanaflex), 2 TABS PO TID PRN for Muscle Spasms Allergies Coded Allergies: No Known Allergies (Unverified , 08/28/17) Physical Exam Vital Signs Date Time Temp Pulse Resp B/P (MAP) Pulse Ox O2 Delivery O2 Flow Rate FiO2 08/28/17 20:04 37.2 101 22 144/66 99 Room Air Physical Exam GENERAL: ambulating to room holding abdomen, mild distress, nontoxic EYE EXAM: normal conjunctiva. OROPHARYNX: no exudate, no erythema, lips, buccal mucosa, and tongue normal and mucous membranes are moist NECK: supple, no nuchal rigidity, no adenopathy, non-tender LUNGS: Clear to auscultation. Normal chest wall mechanics HEART: no murmurs, S1 normal and S2 normal ABDOMEN: Faint diffuse tenderness. Abdomen soft, normo-active bowel sounds, no masses, no rebound or guarding. BACK: Back is symmetrical on inspection and there is no deformity, no midline tenderness, no CVA tenderness. SKIN: no rashes and no bruising UPPER EXTREMITIES: upper extremities are grossly normal. LOWER EXTREMITIES: No pitting edema. NEURO EXAM: Normal sensorium, cranial nerves II-XII grossly intact, normal speech, no gross weakness of arms, no gross weakness of legs. Medical Decision & Procedures Laboratory Results 08/28/17 20:35 Red Blood Count 5.69, Mean Corpuscular Volume 82.2, Mean Corpuscular Hemoglobin 27.4, Mean Corpuscular Hemoglobin Concent 33.3, Mean Platelet Volume 9.1, Neutrophils (%) (Auto) 69.5, Lymphocytes (%) (Auto) 22.6, Monocytes (%) (Auto) 7.0, Eosinophils (%) (Auto) 0.5, Basophils (%) (Auto) 0.2, Neutrophils # (Auto) 8.69, Lymphocytes # (Auto) 2.83, Monocytes # (Auto) 0.87, Eosinophils # (Auto) 0.06, Basophils # (Auto) 0.03 08/28/17 20:35 Test 08/28/17 20:35 White Blood Count 12.51 K/uL (4.8-10.8) Red Blood Count 5.69 M/uL (4.7-6.1) Hemoglobin 15.6 g/dL (14.0-18.0) Hematocrit 46.8 % (42-52) Mean Corpuscular Volume 82.2 fL (80-100) Mean Corpuscular Hemoglobin 27.4 pg (25-34) Mean Corpuscular Hemoglobin Concent 33.3 g/dl (32-36) Platelet Count 302 K/uL (130-400) Mean Platelet Volume 9.1 fL (7.4-10.4) Neutrophils (%) (Auto) 69.5 % Lymphocytes (%) (Auto) 22.6 % Monocytes (%) (Auto) 7.0 % Eosinophils (%) (Auto) 0.5 % Basophils (%) (Auto) 0.2 % Neutrophils # (Auto) 8.69 K/uL (1.4-6.5) Lymphocytes # (Auto) 2.83 K/uL (1.2-3.4) Monocytes # (Auto) 0.87 K/uL (0.11-0.59) Eosinophils # (Auto) 0.06 K/uL (0-0.5) Basophils # (Auto) 0.03 K/uL (0-0.2) RDW Standard Deviation 42.0 fL (36.4-46.3) RDW Coefficient of Variation 14.0 % (11.5-14.5) Immature Granulocyte % (Auto) 0.2 % Immature Granulocyte # (Auto) 0.03 K/uL (0.00-0.02) Anion Gap 11.0 mmol/L (3-11) Est Creatinine Clear Calc Drug Dose 85.1 ml/min Estimated GFR () 105.7 Estimated GFR (Non- 91.2 BUN/Creatinine Ratio 31.9 (10-20) Lactic Acid Level 1.6 mmol/L (0.4-2.0) Calcium Level 9.2 mg/dl (8.5-10.1) Total Bilirubin 0.4 mg/dl (0.2-1) Direct Bilirubin 0.1 mg/dl (0-0.2) Aspartate Amino Transf (AST/SGOT) 17 U/L (15-37) Alanine Aminotransferase (ALT/SGPT) 18 U/L (12-78) Alkaline Phosphatase 148 U/L (45-117) Total Protein 7.4 gm/dl (6.4-8.2) Albumin 3.9 gm/dl (3.4-5.0) Lipase 155 U/L (73-393) Laboratory results per my review. Medications Administered Medications (Trade) Dose Ordered Sig/Bruce Route Start Time Stop Time Status Last Admin Dose Admin Sodium Chloride 1,000 ml @ 999 mls/hr Q1H1M STAT IV 08/28/17 20:12 08/28/17 21:12 DC 08/28/17 20:57 999 MLS/HR Hydromorphone HCl (Dilaudid Inj) 1 mg NOW STAT IV 08/28/17 20:12 08/28/17 20:14 DC 08/28/17 20:57 1 MG Ondansetron HCl (Zofran Inj) 4 mg NOW STAT IV 08/28/17 20:12 08/28/17 20:14 DC 08/28/17 20:58 4 MG Al Hydroxide/Mg Hydroxide (Maalox Susp) 30 ml STK-MED ONCE .ROUTE 08/28/17 20:54 08/28/17 20:55 DC 08/28/17 20:58 30 ML Lidocaine HCl (Viscous Lidocaine 2% Soln) 20 ml STK-MED ONCE .ROUTE 08/28/17 20:54 08/28/17 20:55 DC 08/28/17 20:58 10 ML ED Course ED COURSE: Vital signs were reviewed and showed tachycardic vitals. The patients medical record was reviewed The above diagnostic studies were performed and reviewed. ED treatments and interventions as stated above. 2007: The patient was evaluated in room B5. A complete history and physical examination was performed. 2011: Ordered Zofran Inj 4 mg IV, GI Cocktail 24 ml PO, Dilaudid Inj 1 mg IV, NSS 1000 ml @ 999 mls/hr IV. 2021: I reviewed the patient's case with Dr. Anthony Agrawal purchasing coordinator. He will evaluate the patient for further management. 2039: Upon reevaluation, the patient is resting. I discussed my findings with the patient and he understands and agrees with the treatment plan. Based on the patients age, coexisting illnesses, exam and lab findings the decision to treat as an inpatient was made. The patient remained stable while under my care. The patient will be evaluated for further management. Medical Decision Differential diagnoses includes but is not limited to gastritis, peptic ulcer disease, GERD, gallbladder disease, pancreatitis, small bowel obstruction, acute coronary syndrome, pericarditis, ischemic bowel, irritable bowel disease, irritable bowel syndrome, appendicitis, diverticulitis, malignancy, hernia, urinary tract infection, torsion, perforation, trauma, infectious. Patient is a 62-year-old male who presents to ER for worsening abdominal pain. He was seen here twice earlier today for the same complaint. He has a history of gastric ulcers and notes that this feels fairly similar. Denies any hematemesis or blood in stool. White count is 12,000. CBC shows mild hypokalemia. Lactic acid was negative. BMP all LFTs and lipase is normal. He had a previous CT of his abdomen along with an ultrasound which was unremarkable earlier today. With a negative lactate do not believe to be ischemic. Previous troponins 3 were negative along with unremarkable EKGs. Symptoms improved with GI cocktail. Favor gastritis versus PUD. With his 3 visits earlier today and did discuss case with internal medicine. He was given Dilaudid along with a GI cocktail again tonight. He was admitted to internal medicine for pain control and evaluation by GI. Medication Reconcilliation Current Medication List: was personally reviewed by me Blood Pressure Screening Patient's blood pressure: Normal blood pressure Consults Time Called: 2019 Consulting Physician: Dr. nAthony Agrawal purchasing coordinator Returned Call: 2021 I reviewed the patient's case with Dr. Anthony Agrawal purchasing coordinator. He will evaluate the patient for further management. Impression Primary Impression: Diffuse abdominal pain Additional Impression: Gastritis Scribe Attestation The scribe's documentation has been prepared under my direction and personally reviewed by me in its entirety. I confirm that the note above accurately reflects all work, treatment, procedures, and medical decision making performed by me. Departure Information Dispostion Being Evaluated By Hospitalist Referrals Johnathan Rain III, M.D. (PCP) Patient Instructions My [facility] Problem Qualifiers Additional Impression: Gastritis Gastritis type: unspecified gastritis Chronicity: unspecified Gastritis bleeding: presence of bleeding unspecified Qualified Codes: K29.70 - Gastritis, unspecified, without bleeding
[2017-08-28] MEDS ORDERED: SODIUM CHLORIDE 0.9% 1000ML 1,000 ML IV SCH (22:15)
--- NOTE | 2017-08-28 23:02 | History and Physical ---
History & Physical Date & Time of Service: Aug 28, 2017 at 22:03 Chief Complaint: Abdominal Pain Primary Care Physician: Johnathan Rain III, M.D. History of Present Illness Source: patient, clinic records, hospital records 62 year old male with PMH of pituitary macroadenoma, glucocorticoid deficiency, HTN, IBS, myalgia, GERD, Neck Pain, opiate dependence, drug induce constipation , Central hypothyroidism, BPH presents to the Emergency Room with complaints of worsening abdominal pain. Pt was seen in the ER twice today for the abdominal pain. He had CT abdomen done and ultrasound done that were unremarkable; then he was discharged home in both occasions. He came back for a third time with similar complaint of abdominal pain. Pt said that for about a month, he has had reflux-type burning pain in his epigastric area. He said that he was supposed to get an EGD done with his Gastro DrJaz Dahl, but due to his recent bronchitis he was rescheduled to 09/02. Pt said that yesterday he developed severe abdominal pain associated with nausea, grade 10/10 that is waxes and wanes, radiating to his back and sharp. he said that he was started on prednisone, Tessalon Perles and Zithromax for his bronchitis and believe his pain got worst after the prednisone. His las BM was this morning that was normal. He said that he had 2 EGD done in the past, with the most recent one was done 03/02 that showed gastritis and acquired duodenal stenosis and at that time it was dilated with a balloon. In the ER pt received GI cocktail and IV dilaudid that helped with the pain. He denies any food particles stuck in his esophagus. His cough improved significantly. Denies any chest pain, palpitation, dizziness, vomiting, SOB and fever and wheezing. 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 (13) Spondylosis, cervical Status: Chronic (14) Tonsillectomy Status: Resolved Surgical Problems: (1) H/O elbow surgery Status: Chronic (2) S/P Achilles tendon repair Status: Chronic (3) S/P cervical spinal fusion Permanent Comment: 1999 Status: Chronic (4) S/P nasal septoplasty Status: Chronic (5) S/p removal of turbinate bones Status: Chronic (6) S/P shoulder surgery Status: Chronic (7) S/P tonsillectomy and adenoidectomy Status: Chronic (8) S/P UPPP (uvulopalatopharyngoplasty) Status: Chronic (9) Status post transsphenoidal pituitary resection Permanent Comment: 04/11/17 at [facility] [place] Status: Chronic Family History Hypertension FATHER MOTHER Social History Smoking Status: Unknown if Ever Smoked Drug Use: none Marital Status: single Housing status: lives alone Allergies Coded Allergies: No Known Allergies (Unverified , 08/28/17) Home Medications Scheduled Amitriptyline Hcl (Elavil), 75 MG PO HS Amlodipine (Norvasc), 5 MG PO QAM Arzorjt-Omfolqyozhznm-Eadrsjnk (Excedrin Extra Strength), 2 TABS PO UD Atenolol (Tenormin), 25 MG PO BID Atorvastatin (Lipitor), 80 MG PO QPM Azithromycin (Azithromycin), 1 TAB PO DAILY Clobetasol Propionate (Temovate), 1 APPLN TOP BID Clopidogrel (Plavix), 75 MG PO ON HOLD Dicyclomine Hcl (Dicyclomine Hcl), 10 MG PO TID Diphenhydramine-Acetaminophen (Excedrin Pm), 2 TABS PO HS Docusate Sodium (Docusate Sodium), 100 MG PO BID Gabapentin (Neurontin), 400 MG PO TID Hydrocortisone (Cortef), 10 MG PO QAM Levothyroxine Sodium (Levothyroxine Sodium), 75 MCG PO QAM Lubiprostone (Amitiza), 24 MCG PO BID Mometasone Furoate (Nasal) (Mometasone Furoate), 2 SPRAY DENNIS BID Morphine Sulfate (Morphine Sulfate Er), 30 MG PO BID Multiple Vitamins W/ Minerals (Centrum Silver Adult 50+), 1 TAB PO DAILY Pantoprazole (Protonix), 40 MG PO QAM Prednisone (Prednisone), 1 TAB PO UD Senna (Senokot), 1 TABS PO BID Scheduled PRN Albuterol Sulfate (Proair Respiclick), 2 PUFF INH QID PRN for SOB/Wheezing Benzonatate (Tessalon Perles), 100 MG PO for Cough Menthol (Topical Analgesic) (Icy Hot Patch), 1 PATCH EXT DAILY PRN for Pain Oxycodone/Acetaminophen 10MG/325MG (Percocet 10MG/325MG), 1 TAB PO Q4H PRN for Pain Promethazine HCl (Promethazine HCl), 25 MG PO Q6H PRN for Nausea Simethicone (Gas-X), 80 MG PO UD PRN for gas Tizanidine (Zanaflex), 2 TABS PO TID PRN for Muscle Spasms Review of Systems Constitutional: No fever, No chills Eyes: No eye pain, No discharge ENT: No nasal symptoms, No sore throat, No trouble swallowing Respiratory: + cough, + shortness of breath, No wheezing Cardiovascular: No chest pain, No claudication, No palpitations Abdomen: + pain, + nausea Musculoskeletal: + joint pain, No calf pain Genitourinary - Male: No dysuria Neurologic: No memory loss Psychiatric: No substance abuse Endocrine: No excessive thirst Hematologic / Lymphatic: No abnormal bleeding/bruising Integumentary: No rash, No itch Physical Exam Vital Signs Date Time Temp Pulse Resp B/P (MAP) Pulse Ox O2 Delivery O2 Flow Rate FiO2 08/28/17 21:42 73 18 147/79 99 Room Air 08/28/17 21:39 08/28/17 20:04 37.2 101 22 144/66 99 Room Air General Appearance: WD/WN, no apparent distress Head: normocephalic, atraumatic Eyes: PERRL, EOMI ENT: hearing grossly normal Neck: no JVD, trachea midline Respiratory/Chest: normal breath sounds, no respiratory distress, no accessory muscle use Cardiovascular: no edema, no JVD, no murmur Abdomen/GI: + tenderness (mid epigastric tenderness), + pertinent finding ( hypoactive bowel sound) Back: + pertinent finding (back pain) Extremities/Musculoskelatal: no calf tenderness Neurologic/Psych: no motor/sensory deficits, alert, oriented x 3 Skin: warm/dry, no rash Diagnostics Laboratory Results Results Past 24 Hours Test 08/28/17 20:35 Range/Units White Blood Count 12.51 4.8-10.8 K/uL Red Blood Count 5.69 4.7-6.1 M/uL Hemoglobin 15.6 14.0-18.0 g/dL Hematocrit 46.8 42-52 % Mean Corpuscular Volume 82.2 80-100 fL Mean Corpuscular Hemoglobin 27.4 25-34 pg Mean Corpuscular Hemoglobin Concent 33.3 32-36 g/dl Platelet Count 302 130-400 K/uL Mean Platelet Volume 9.1 7.4-10.4 fL Neutrophils (%) (Auto) 69.5 % Lymphocytes (%) (Auto) 22.6 % Monocytes (%) (Auto) 7.0 % Eosinophils (%) (Auto) 0.5 % Basophils (%) (Auto) 0.2 % Neutrophils # (Auto) 8.69 1.4-6.5 K/uL Lymphocytes # (Auto) 2.83 1.2-3.4 K/uL Monocytes # (Auto) 0.87 0.11-0.59 K/uL Eosinophils # (Auto) 0.06 0-0.5 K/uL Basophils # (Auto) 0.03 0-0.2 K/uL RDW Standard Deviation 42.0 36.4-46.3 fL RDW Coefficient of Variation 14.0 11.5-14.5 % Immature Granulocyte % (Auto) 0.2 % Immature Granulocyte # (Auto) 0.03 0.00-0.02 K/uL Sodium Level 142 136-145 mmol/L Potassium Level 3.4 3.5-5.1 mmol/L Chloride Level 105 98-107 mmol/L Carbon Dioxide Level 27 21-32 mmol/L Anion Gap 11.0 3-11 mmol/L Blood Urea Nitrogen 29 7-18 mg/dl Creatinine 0.90 0.60-1.40 mg/dl Est Creatinine Clear Calc Drug Dose 85.1 ml/min Estimated GFR () 105.7 Estimated GFR (Non- 91.2 BUN/Creatinine Ratio 31.9 10-20 Random Glucose 103 70-99 mg/dl Lactic Acid Level 1.6 0.4-2.0 mmol/L Calcium Level 9.2 8.5-10.1 mg/dl Total Bilirubin 0.4 0.2-1 mg/dl Direct Bilirubin 0.1 0-0.2 mg/dl Aspartate Amino Transf (AST/SGOT) 17 15-37 U/L Alanine Aminotransferase (ALT/SGPT) 18 12-78 U/L Alkaline Phosphatase 148 45-117 U/L Total Protein 7.4 6.4-8.2 gm/dl Albumin 3.9 3.4-5.0 gm/dl Lipase 155 73-393 U/L Diagnostic Radiology GALLBLADDER-ABD LIMITED HISTORY: 62 years-old Male persistent epigastric pain/discomfort acute epigastric abdominal pain COMPARISON: CT of same day, right upper quadrant ultrasound 07/16/2015 TECHNIQUE: Multiple real-time sonographic images of the abdominal right upper quadrant were obtained assessing grayscale appearance and color Doppler flow FINDINGS: Pancreas is obscured by bowel gas. There is increased echogenicity of the hepatic parenchyma without focal mass identified suggesting fatty infiltration. No intrahepatic biliary ductal dilation identified. The gallbladder is unremarkable without shadowing cholelithiasis or pericholecystic fluid collections. No wall thickening identified. Common bile duct is normal, 4 mm. The imaged right kidney is unremarkable measuring up to 10 cm in length. IMPRESSION: 1. No cholelithiasis or sonographic evidence of acute cholecystitis. No biliary ductal dilation. 2. Pancreas obscured by bowel gas. 3. Increased echogenicity of the hepatic parenchyma suggests fatty infiltration. The above report was generated using voice recognition software. It may contain grammatical, syntax or spelling errors. Electronically signed by: Mason Diaz M.D. 08/28/2017 10:17 AM Dictated Date/Time: 08/28/2017 10:14 AM ABDOMEN AND PELVIS CT WITH IV CONTRAST CT DOSE: 522.57 mGy.cm HISTORY: Acute epigastric abdominal pain. epigastric pain now diffuse post prednisone use TECHNIQUE: Multiaxial CT images of the abdomen and pelvis were performed following the use of intravenous contrast. 92 mL Optiray 320 IV contrast was administered A dose lowering technique was utilized adhering to the principles of ALARA. COMPARISON STUDY: MRCP 07/21/2015, ultrasound of the abdomen 11/06/2012. FINDINGS: Imaged lung bases are generally clear. There is no pneumoperitoneum identified. The imaged inferior cardiac chambers are unremarkable. Nonspecific low attenuating 4 mm lesion of the subserosal right hepatic lobe, image 25 series 2 is too small to characterize however suggests a hepatic cyst. Liver is otherwise unremarkable. No intrahepatic biliary ductal dilation. Spleen, pancreas and adrenal glands are unremarkable. There is mild distention of the gallbladder which is otherwise within normal limits. 4 mm low attenuating lesion of the anterior interpolar right kidney suggests cyst. There is no renal calculi or hydronephrosis. Ureters and urinary bladder are within normal limits. Prostate is mildly enlarged. Phleboliths are seen within the pelvis. The abdominal aorta is normal in course and caliber with mild mixed plaquing. No bulky adenopathy. Small duodenal diverticulum. No bowel obstruction or focal bowel wall thickening. Scattered noninflamed colonic diverticula. There is moderate stool volume of the ascending and transverse colon. The appendix contains high attenuating debris as seen on image 255 series 3 which may reflect an appendicolith. No CT evidence of acute appendicitis. Mild nonspecific stranding of the left subcutaneous anterior abdominal wall, image 263 series 3. The bones appear intact. IMPRESSION: 1. No acute intra-abdominal or intrapelvic abnormality identified. 2. High attenuating material within the distal appendiceal lumen may reflect appendicolith. No CT evidence of acute appendicitis. 3. Colonic diverticulosis without diverticulitis. 4. Moderate stool volume of the ascending and transverse colon suggests constipation. 5. Prostamegaly. Electronically signed by: Mason Diaz M.D. 08/28/2017 8:18 AM Dictated Date/Time: 08/28/2017 8:11 AM Impression Assessment and Plan Epigastric Abdominal pain Has been seen 3 times today in the ER within the last 12 hrs. U/S done early showed no cholelithiasis or sonographic evidence of acute cholecystitis. No biliary ductal dilation. CT abd/pelvis done early showed no acute intra-abdominal or intrapelvic abnormality identified EGD done on 03/02 showed esophagitis, gastritis and in acquired duodenal stenosis that was dilated. Received GI cocktail and IV Dilaudid in the ER will start on protonix IV BID Keep NPO for tonight IVF , GI cocktail GI consult for possible EGD Bronchitis Clinically improved No wheezing on exam received zithromax for 3 days Will not continue prednisone Continue rosita calabrese Chronic pain syndrome Neck pain/Back pain/Myalgia Will hold her PO narcotic med since staring on Dilaudid Continue gabapentin, excedrin, and Zanaflex Pituitary Macroadenoma Glucocorticoid deficiency Continue hydrocortisone tab Constipation last BM was this morning CT abd/pelvis showed moderate stool volume of the ascending and transverse colon continue amitiza and docusate HTN Continue atenolol and amlodipine Monitor BP Hypothyroidism Check TSH continue levothyroxine Hx TIA/CVA Plavix has been on hold for the EGD on 09/02 continue Lipitor 80mg DVT px on SCD ( hx of gastritis and Plan for EGD) CODE STATUS FULL CODE Level of Care Med/Surg Resuscitation Status FULL RESUSCITATION VTE Prophylaxis VTE Risk Assessment Done? Y/N: Yes Risk Level: Moderate Given or contraindicated: SCD's
[2017-08-28] MEDS ORDERED: MOME6000 NAE ×2 (23:16)
[2017-08-28] MEDS ORDERED: ALBU18002 INH ×2 (23:16)
[2017-08-28] MEDS ORDERED: BENZONATATE 100MG CAP PO PRN (23:30)
[2017-08-28] MEDS ORDERED: TROLAMINE SALICYLATE 10% CRM 255 APPLN/85 GM TUBE EXT PRN (23:30)
[2017-08-28] MEDS ORDERED: PROMETHAZINE HCL 25 MG TAB PO PRN (23:30)
[2017-08-29] VITALS (8 sets, daily range): BP systolic 116–154; BP diastolic 68–83; PULSE 76–91; TEMP 36.6–36.8; O2SAT 94–99
[2017-08-29] MEDS ORDERED: POTASSIUM CHLR 10 MEQ / WTR 10 MEQ in PREMIXED WATER 100 ML IV ONE (01:30)
[2017-08-29 01:36] LABS: MANUAL MICROSCOPIC REQUIRED? NO; REVIEW REQ? NO; URINE APPEARANCE CLEAR (CLEAR); URINE BILIRUBIN NEG (NEG); URINE COLOR YELLOW; URINE NITRITE NEG (NEG); URINE SPECIFIC GRAVITY 1.026 (1.000-1.030); UROBILINOGEN NEG (NEG); ZZUR CULT IF INDIC CLEAN CATCH NO
[2017-08-29] MEDS: LEVOTHYROXINE 75 MCG TAB PO SCH (05:38)
[2017-08-29] MEDS: MoRPHine SULFATE CR 15 MG TAB (MS CONTIN) PO SCH ×2 (05:44→17:31)
[2017-08-29 06:04] LABS: HEMATOCRIT 45.1 % (42-52); MEAN CELL VOLUME 83.2 fL (80-100); MEAN CORPUSCULAR HGB CONC 33.7 g/dl (32-36); MEAN PLATELET VOLUME 8.9 fL (7.4-10.4); PLATELET COUNT 270 K/uL (130-400); RED BLOOD COUNT 5.42 M/uL (4.7-6.1); WHITE BLOOD COUNT 9.92 K/uL (4.8-10.8)
[2017-08-29 06:39] LABS: BUN/CREATININE RATIO 29.5 (10-20); CALCIUM 8.6 mg/dl (8.5-10.1); CREATININE 0.76 mg/dl (0.60-1.40); POTASSIUM 3.9 mmol/L (3.5-5.1)
[2017-08-29 06:49] LABS: THYROID STIMULATING HORMONE 1.71 uIu/ml (0.300-4.500)
[2017-08-29] MEDS: HYDROmorphone INJ 1 MG/ML SYR IV PRN ×4 (07:56→22:16)
[2017-08-29] MEDS: LUBIPROSTONE 8 MCG CAP PO SCH ×2 (09:36→20:45)
[2017-08-29] MEDS: CLOBETASOL PROPIONATE 0.05% OINT 15 GM TUBE EXT SCH ×2 (09:36→20:44)
[2017-08-29] MEDS: DICYCLOMINE HCL 10 MG CAP PO SCH ×3 (09:36→20:45)
[2017-08-29] MEDS: FLUTICASONE PROPIONATE NA SPR 16 GM BTL NAE SCH ×2 (09:36→20:44)
[2017-08-29] MEDS: AMLODIPINE BESYLATE 5 MG TAB PO SCH (09:37)
[2017-08-29] MEDS: DOCUSATE SODIUM 100 MG CAP PO SCH ×2 (09:37→20:47)
[2017-08-29] MEDS: PANTOprazole SOD 40 MG TAB PO SCH ×2 (09:37→20:48)
[2017-08-29] MEDS: HYDROCORTISONE 10 MG TAB PO SCH (09:37)
[2017-08-29] MEDS: SENNA 8.6 MG TAB PO SCH ×2 (09:37→20:47)
[2017-08-29] MEDS: GABAPENTIN 400 MG CAP PO SCH ×3 (09:38→20:46)
--- NOTE | 2017-08-29 09:47 | Gastrointestinal Consultation ---
Gastrointestinal Consultation Date of Consultation: Aug 29, 2017 Attending Physician: Dr. Cruz Consulting Physician: Dr. Dahl/RALPH Alford Reason for Consultation: Epigastric pain History of Present Illness Patient is a 62 year old male with a history of GERD, chronic constipation, duodenal stenosis and esophageal stenosis admitted with epigastric pain after two visits to the ER yesterday for abdominal pain. He was originally scheduled for an upper endoscopy with Dr. Dahl last week but testing was deferred as he had developed acute bronchitis. He is recovering from a respiratory standpoint. Currently, he rates his abdominal pain as 5/10. Pain is localized to the epigastric region and improved with opioid analgesics. Pain is worse with eating. There is associated nausea but no vomiting and bloating. No bloody or black bowel movements. He has been made NPO by the primary team. Currently being treated with Protonix 40 mg BID. Past Medical/Surgical History Medical Problems: (1) Constipation Status: Acute (2) Diffuse abdominal pain Status: Acute (3) Encounter for Sweeney catheter removal Status: Acute (4) Epigastric abdominal pain Status: Acute (5) Gastritis Status: Acute (6) Gastritis Status: Acute (7) Neck pain on left side Status: Acute (8) Neck pain, chronic Status: Acute (9) Pain of cervical spine Status: Acute (10) TIA (transient ischemic attack) Status: Acute (11) Urinary retention Status: Acute Past Medical History: 1. Benign hypertension 2. BPH 3. Cervical post-laminectomy syndrome 4. Chronic neck pain 5. Deviated nasal septum 6. GERD 7. TIA 8. Hyperlipidemia 9. IBS 10. Panhypopituitarism 11. Pituitary adenoma 12. Chronic constipation 13. Opiate dependence Past Surgical History: 1. Tonsillectomy 2. Elbow surgery 3. Achilles tendon repair 4. Cervical spine fusion 5. Nasal septoplasty 6. Removal of turbinate bones 7. Shoulder surgery 8. UPPP 9. Transsphenoidal pituitary resection 10. EGD with dilation 11. EUS 12. Complete colonoscopy Family History Hypertension FATHER MOTHER Negative for GI malignancy and IBD Social History Smoking Status: Unknown if Ever Smoked Alcohol Use: none Drug Use: none Marital Status: single Housing Status: lives alone Occupation Status: disabled Allergies Coded Allergies: No Known Allergies (Unverified , 08/28/17) Current Medications Home Meds and Scripts Medications Dose Route/Sig Max Daily Dose Days Date Category Dose Instructions Proair Respiclick (Albuterol Sulfate) 108 Mcg/Act Aer 2 Puff INH QID PRN 08/28/17 Reported Mometasone Furoate (Mometasone Furoate (Nasal)) 50 Mcg/Act Spr 2 [place] DENNIS BID 08/28/17 Reported Tessalon Perles (Benzonatate) 100 Mg Cap 100 Mg PO PRN 08/28/17 Reported Prednisone 20 Mg Tab 1 Tab PO UD 5 08/28/17 Reported Azithromycin 500 Mg Tab 1 Tab PO DAILY 3 08/28/17 Reported Protonix (Pantoprazole Sodium) 40 Mg Tab 40 Mg PO QAM 08/11/17 Reported Plavix (Clopidogrel Bisulfate) 75 Mg Tab 75 Mg PO ON HOLD 08/11/17 Reported ON HOLD FOR ENDOSCOPY 09/02/2017 Zanaflex (Tizanidine HCl) 4 Mg Cap 2 Tabs PO TID PRN 06/29/17 Reported Icy Hot Patch (Menthol (Topical Analgesic)) 5 % Pad 1 Patch EXT DAILY PRN 06/27/17 Reported Gas-X (Simethicone) 80 Mg Chw 80 Mg PO UD PRN 06/27/17 Reported Centrum Silver Adult 50+ (Multiple Vitamins W/ Minerals) 1 Tab Tab 1 Tab PO DAILY 06/27/17 Reported Temovate (Clobetasol Propionate) 0.05 % Oin 1 Appln TOP BID 06/27/17 Reported Lipitor (Atorvastatin Calcium) 80 Mg Tab 80 Mg PO QPM 06/27/17 Reported Docusate Sodium 100 Mg Cap 100 Mg PO BID 06/27/17 Reported Excedrin Extra Strength (Ioerapq-Cozhzlvmaqnmj-Mgpxsxdt) 1 Tab Tab 2 Tabs PO UD 06/27/17 Reported Take 2 tabs by mouth twice per day in the morning and at noon. Senokot (Senna) 8.6 Mg Tab 1 Tabs PO BID 06/27/17 Reported Neurontin (Gabapentin) 400 Mg Cap 400 Mg PO TID 06/10/17 Reported Dicyclomine Hcl 10 Mg Cap 10 Mg PO TID 04/16/17 Reported Amitiza (Lubiprostone) 24 Mcg Cap 24 Mcg PO BID 03/03/17 Reported Promethazine HCl 25 Mg Tab 25 Mg PO Q6H PRN 01/19/17 Reported Norvasc (Amlodipine Besylate) 5 Mg Tab 5 Mg PO QAM 06/17/16 Reported Percocet 10MG/325MG (Oxycodone/Acetaminophen) Tab 1 Tab PO Q4H PRN 03/14/16 Reported Elavil (Amitriptyline Hcl) 75 Mg Tab 75 Mg PO HS 03/02/16 Reported Levothyroxine Sodium 75 Mcg Tab 75 Mcg PO QAM 02/21/16 Reported Excedrin Pm (Diphenhydramine-Acetaminophen) 1 Tab Tab 2 Tabs PO HS 04/11/15 Reported Cortef (Hydrocortisone) 10 Mg Tab 10 Mg PO QAM 06/15/14 Reported Morphine Sulfate Er (Morphine Sulfate) 30 Mg Tab 30 Mg PO BID 08/05/13 Reported Tenormin (Atenolol) 25 Mg Tab 25 Mg PO BID 07/24/10 Reported Review of Systems Constitutional: + fatigue, No fever, No chills Eyes: No problem reported ENT: No trouble swallowing, No pain on swallowing Respiratory: + cough, No sputum, No wheezing, No shortness of breath, No dyspnea on exertion, No dyspnea at rest Cardiac: No chest pain, No palpitations Abdomen: + see HPI Musculoskeletal: + joint pain Male : No problem reported Neuro: No problem reported Psych: No problem reported Heme: No problem reported Endo: No problem reported Skin: No problem reported Physical Exam Date Time Temp Pulse Resp B/P (MAP) Pulse Ox O2 Delivery O2 Flow Rate FiO2 08/29/17 08:15 94 Room Air 08/29/17 07:43 36.7 85 20 117/80 (92) 94 Room Air 08/28/17 23:45 Room Air 08/28/17 21:59 36.9 74 18 159/72 99 Room Air 08/28/17 21:42 73 18 147/79 99 Room Air 08/28/17 21:39 08/28/17 20:04 37.2 101 22 144/66 99 Room Air General Appearance: no apparent distress Eyes: EOMI ENT: hearing grossly normal Neck: supple Respiratory/Chest: lungs clear, no respiratory distress Cardiovascular: regular rate, rhythm Abdomen: normal bowel sounds, soft, + tenderness (epigastric region) Extremities: no pedal edema Neurologic/Psych: alert, normal mood/affect, oriented x 3 Skin: warm/dry Laboratory Results Last 24 Hours Test 08/28/17 20:35 08/29/17 00:45 08/29/17 05:44 White Blood Count 12.51 K/uL 9.92 K/uL Red Blood Count 5.69 M/uL 5.42 M/uL Hemoglobin 15.6 g/dL 15.2 g/dL Hematocrit 46.8 % 45.1 % Mean Corpuscular Volume 82.2 fL 83.2 fL Mean Corpuscular Hemoglobin 27.4 pg 28.0 pg Mean Corpuscular Hemoglobin Concent 33.3 g/dl 33.7 g/dl Platelet Count 302 K/uL 270 K/uL Mean Platelet Volume 9.1 fL 8.9 fL Neutrophils (%) (Auto) 69.5 % Lymphocytes (%) (Auto) 22.6 % Monocytes (%) (Auto) 7.0 % Eosinophils (%) (Auto) 0.5 % Basophils (%) (Auto) 0.2 % Neutrophils # (Auto) 8.69 K/uL Lymphocytes # (Auto) 2.83 K/uL Monocytes # (Auto) 0.87 K/uL Eosinophils # (Auto) 0.06 K/uL Basophils # (Auto) 0.03 K/uL RDW Standard Deviation 42.0 fL 43.3 fL RDW Coefficient of Variation 14.0 % 14.3 % Immature Granulocyte % (Auto) 0.2 % Immature Granulocyte # (Auto) 0.03 K/uL Sodium Level 142 mmol/L 143 mmol/L Potassium Level 3.4 mmol/L 3.9 mmol/L Chloride Level 105 mmol/L 106 mmol/L Carbon Dioxide Level 27 mmol/L 29 mmol/L Anion Gap 11.0 mmol/L 9.0 mmol/L Blood Urea Nitrogen 29 mg/dl 22 mg/dl Creatinine 0.90 mg/dl 0.76 mg/dl Est Creatinine Clear Calc Drug Dose 85.1 ml/min 100.8 ml/min Estimated GFR () 105.7 113.3 Estimated GFR (Non- 91.2 97.8 BUN/Creatinine Ratio 31.9 29.5 Random Glucose 103 mg/dl 94 mg/dl Lactic Acid Level 1.6 mmol/L Calcium Level 9.2 mg/dl 8.6 mg/dl Total Bilirubin 0.4 mg/dl Direct Bilirubin 0.1 mg/dl Aspartate Amino Transf (AST/SGOT) 17 U/L Alanine Aminotransferase (ALT/SGPT) 18 U/L Alkaline Phosphatase 148 U/L Total Protein 7.4 gm/dl Albumin 3.9 gm/dl Lipase 155 U/L Hepatitis C Antibody Screen NEG Urine Color YELLOW Urine Appearance CLEAR Urine pH 6.0 Urine Specific [place] 1.026 Urine Protein NEG Urine Glucose (UA) NEG Urine Ketones NEG Urine Occult Blood 1+ Urine Nitrite NEG Urine Bilirubin NEG Urine Urobilinogen NEG Urine Leukocyte Esterase NEG Urine WBC (Auto) 1-5 /hpf Urine RBC (Auto) 5-10 /hpf Urine Hyaline Casts (Auto) 1-5 /lpf Urine Epithelial Cells (Auto) 5-10 /lpf Urine Bacteria (Auto) NEG Thyroid Stimulating Hormone (TSH) 1.710 uIu/ml Impression Patient is a 62 year old male with a history of GERD with Schatzki's ring and duodenal stricture admitted with worsened epigastric pain and nausea. Plan 1. Keep NPO for now. 2. EGD with Dr. Dahl today for further evaluation and possible repeat dilation. 3. Continue Protonix 40 mg BID. 4. Supportive care per primary team. Thank you for allowing us to participate in the care of this pleasant patient. If you have any questions or concerns, please do not hesitate to contact us. Agree with RALPH Alford as above Abd: Soft, tender RUQ, ND, +BS Proceed with EGD today Continue current therapy
[2017-08-29] MEDS ORDERED: MIDAZOLAM HCL 1 MG/ML 2ML VIAL ONE (12:53)
[2017-08-29] MEDS ORDERED: LIDOCAINE HCL 2% 2 ML VIAL (20MG/ML) ONE (13:13)
[2017-08-29] MEDS ORDERED: PROPOFOL IV EMULSION 10 MG/ML 20 ML VIAL IV ONE (13:13)
--- NOTE | 2017-08-29 13:24 | GI REPORT ---
Procedure Date: 08/29/2017 12:53 PM Procedure: Upper GI endoscopy Indications: Epigastric abdominal pain, For therapy of duodenal stenosis Medicines: Monitored Anesthesia Care Complications: No immediate complications. Estimated Blood Loss: Estimated blood loss: none. Procedure: Pre-Anesthesia Assessment: - Prior to the procedure, a History and Physical was performed, and patient medications and allergies were reviewed. The patient's tolerance of previous anesthesia was also reviewed. The risks and benefits of the procedure and the sedation options and risks were discussed with the patient. All questions were answered, and informed consent was obtained. Prior Anticoagulants: The patient has taken no previous anticoagulant or antiplatelet agents. ASA Grade Assessment: II - A patient with mild systemic disease. After reviewing the risks and benefits, the patient was deemed in satisfactory condition to undergo the procedure. After obtaining informed consent, the endoscope was passed under direct vision. Throughout the procedure, the patient's blood pressure, pulse, and oxygen saturations were monitored continuously. The scope was introduced through the mouth, and advanced to the second part of duodenum. The upper GI endoscopy was accomplished without difficulty. The patient tolerated the procedure well. Findings: The esophagus was normal. The stomach was normal. One non-bleeding cratered duodenal ulcer with no stigmata of bleeding was found in the second part of the duodenum. The lesion was 8 mm in largest dimension. An acquired benign-appearing, intrinsic moderate stenosis was found at 2nd part of the duodenum and was traversed. A TTS dilator was passed through the scope. Dilation with a 15-16.5-18 mm pyloric balloon dilator was performed. The dilation site was examined and showed moderate improvement in luminal narrowing. Impression: - Normal esophagus. - Normal stomach. - One non-bleeding duodenal ulcer with no stigmata of bleeding. - Acquired duodenal stenosis. Dilated. - No specimens collected. Recommendation: - Return patient to hospital [facility] for ongoing care. - Advance diet as tolerated. - Continue present medications. Chaitanya Dahl, DO 08/29/2017 1:24:20 PM This report has been signed electronically. Note Initiated On: 08/29/2017 12:53 PM I attest to the content of the Intraoperative Record and orders documented therein, exceptions below
--- NOTE | 2017-08-29 13:30 | Anesthesiology Progress Note ---
Anesthesia Post Op Note Date & Time Aug 29, 2017 at 13:30 Vital Signs Pain Intensity: 0 Vital Signs Past 12 Hours Date Time Temp Pulse Resp B/P (MAP) Pulse Ox O2 Delivery O2 Flow Rate FiO2 08/29/17 13:19 90 16 134/74 (94) 100 Room Air 08/29/17 12:00 36.8 91 18 148/71 (96) 99 Room Air 08/29/17 11:40 36.7 85 20 117/80 94 Room Air 08/29/17 08:15 94 Room Air 08/29/17 07:43 36.7 85 20 117/80 (92) 94 Room Air 08/29/17 07:30 Room Air Notes Mental Status: alert / awake / arousable, participated in evaluation Pt Amnestic to Procedure: Yes Nausea / Vomiting: adequately controlled Pain: adequately controlled Airway Patency, RR, SpO2: stable & adequate BP & HR: stable & adequate Hydration State: stable & adequate Anesthetic Complications: no major complications apparent
[2017-08-29] MEDS ORDERED: HYDROmorphone INJ 1 MG/ML SYR IV ONE (18:00)
[2017-08-29] MEDS ORDERED: ACETAMINOPHEN 500 MG TAB PO SCH (21:00)
[2017-08-29] MEDS ORDERED: ATORVASTATIN 40 MG TAB PO SCH (21:00)
[2017-08-29] MEDS ORDERED: AMITRIPTYLINE HCL 50 MG TAB PO SCH (21:00)
--- NOTE | 2017-08-29 22:02 | Progress Note ---
Medicine Progress Note Date & Time of Visit: Aug 29, 2017 at ~ 15:30 . Subjective Admitted last evening with abdominal pain. EGD performed today by Dr. Dahl. Feels better this afternoon. No abdominal pain, nausea, vomiting. No melena or hematochezia. Chronic neck pain controlled with analgesics. . Objective Last 8 Hrs Date Time Temp Pulse Resp B/P (MAP) Pulse Ox O2 Delivery O2 Flow Rate FiO2 08/29/17 20:50 76 131/76 (94) 08/29/17 15:54 36.8 90 18 154/68 (96) 97 Room Air 08/29/17 14:19 36.6 80 18 131/83 (99) 99 Room Air Physical Exam: General- no distress Lungs- clear Heart- RRR Abdomen- + BS, soft, nontender Extremities- no pretibial edema or calf tenderness Neuro- alert . Laboratory Results: Last 24 Hours Test 08/29/17 00:45 08/29/17 05:44 Urine Color YELLOW Urine Appearance CLEAR Urine pH 6.0 Urine Specific [place] 1.026 Urine Protein NEG Urine Glucose (UA) NEG Urine Ketones NEG Urine Occult Blood 1+ Urine Nitrite NEG Urine Bilirubin NEG Urine Urobilinogen NEG Urine Leukocyte Esterase NEG Urine WBC (Auto) 1-5 /hpf Urine RBC (Auto) 5-10 /hpf Urine Hyaline Casts (Auto) 1-5 /lpf Urine Epithelial Cells (Auto) 5-10 /lpf Urine Bacteria (Auto) NEG White Blood Count 9.92 K/uL Red Blood Count 5.42 M/uL Hemoglobin 15.2 g/dL Hematocrit 45.1 % Mean Corpuscular Volume 83.2 fL Mean Corpuscular Hemoglobin 28.0 pg Mean Corpuscular Hemoglobin Concent 33.7 g/dl RDW Standard Deviation 43.3 fL RDW Coefficient of Variation 14.3 % Platelet Count 270 K/uL Mean Platelet Volume 8.9 fL Sodium Level 143 mmol/L Potassium Level 3.9 mmol/L Chloride Level 106 mmol/L Carbon Dioxide Level 29 mmol/L Anion Gap 9.0 mmol/L Blood Urea Nitrogen 22 mg/dl Creatinine 0.76 mg/dl Est Creatinine Clear Calc Drug Dose 100.8 ml/min Estimated GFR () 113.3 Estimated GFR (Non- 97.8 BUN/Creatinine Ratio 29.5 Random Glucose 94 mg/dl Calcium Level 8.6 mg/dl Thyroid Stimulating Hormone (TSH) 1.710 uIu/ml Assessment & Plan ABDOMINAL PAIN EGD revealed duodenal ulcer without bleeding as well as duodenal stenosis which was dilated. Does not use any aspirin or NSAID's. Continue PPI. Advance diet as tolerated. HYPERTENSION Continue atenolol. CEREBROVASCULAR DISEASE Continue clopidogrel. PANHYPOPITUITARISM S/P resection pituitary adenoma. Continue hydrocortisone and levothyroxine. CHRONIC NECK PAIN Continue usual analgesics. VTE PROPHYLAXIS SCD's. Ambulate. DISPOSITION Expected discharge to home. Family Medicine follow-up with Dr. Rain. . . Current Inpatient Medications: Current Inpatient Medications Medications (Trade) Dose Ordered Sig/Bruce Route Start Time Stop Time Status Last Admin Dose Admin Ondansetron HCl (Zofran Inj) 4 mg Q6H PRN IV 08/28/17 21:00 09/27/17 20:59 Hydromorphone HCl (Dilaudid Inj) 1 mg Q4HWA PRN IV 08/28/17 22:15 09/11/17 22:14 08/29/17 15:00 1 MG Amitriptyline HCl (Elavil Tab) 75 mg HS PO 08/29/17 21:00 09/28/17 20:59 08/29/17 20:45 75 MG Amlodipine Besylate (Norvasc Tab) 5 mg QAM PO 08/29/17 09:00 09/28/17 08:59 Atenolol (Tenormin Tab) 25 mg BID PO 08/29/17 09:00 09/28/17 08:59 08/29/17 20:50 25 MG Atorvastatin Calcium (Lipitor Tab) 80 mg QPM PO 08/29/17 21:00 09/28/17 20:59 08/29/17 20:48 80 MG Benzonatate (Tessalon Perles Cap) 100 mg Q8 PRN PO 08/28/17 23:30 09/27/17 23:29 Dicyclomine HCl (Bentyl Cap) 10 mg TID PO 08/29/17 09:00 09/28/17 08:59 08/29/17 20:45 10 MG Docusate Sodium (coLACE CAP) 100 mg BID PO 08/29/17 09:00 09/28/17 08:59 08/29/17 20:47 100 MG Gabapentin (Neurontin Cap) 400 mg TID PO 08/29/17 09:00 09/28/17 08:59 08/29/17 20:46 400 MG Hydrocortisone (Cortef Tab) 10 mg QAM PO 08/29/17 09:00 09/28/17 08:59 Levothyroxine Sodium (Synthroid Tab) 75 mcg DAILYBB PO 08/29/17 06:00 09/28/17 05:59 08/29/17 05:38 75 MCG Promethazine HCl (Phenergan Tab) 25 mg Q6H PRN PO 08/28/17 23:30 09/27/17 23:29 Senna (Senokot Tab) 8.6 mg BID PO 08/29/17 09:00 09/28/17 08:59 08/29/17 20:47 8.6 MG Clobetasol Propionate (Clobetasol Propionate Oint) 1 appln BID EXT 08/29/17 09:00 09/28/17 08:59 Acetaminophen (Tylenol Tab) 1,000 mg HS PO 08/29/17 21:00 09/28/17 20:59 Lubiprostone (Amitiza) 24 mcg BID PO 08/29/17 09:00 09/28/17 08:59 08/29/17 20:45 24 MCG Trolamine Salicylate (Myoflex Cream) 1 appln DAILY PRN EXT 08/28/17 23:30 09/27/17 23:29 Fluticasone Propionate (Flonase Nasal [place]) 2 sprays BID DENNIS 08/29/17 09:00 09/28/17 08:59 08/29/17 20:44 2 SPRAYS Morphine Sulfate (Oramorph Sr Tab) 30 mg Q12H PO 08/29/17 06:00 09/12/17 05:59 08/29/17 17:31 30 MG Tizanidine HCl (Zanaflex Tab) 8 mg TID PRN PO 08/28/17 23:30 09/27/17 23:29 Pantoprazole Sodium (Protonix Tab) 40 mg BID PO 08/29/17 09:00 09/28/17 08:59 08/29/17 20:48 40 MG Diphenhydramine HCl (Benadryl Cap) 50 mg HS PO 08/29/17 21:00 09/28/17 20:59
[2017-08-30] MEDS: LEVOTHYROXINE 75 MCG TAB PO SCH (06:22)
[2017-08-30] MEDS: MoRPHine SULFATE CR 15 MG TAB (MS CONTIN) PO SCH (06:22)
[2017-08-30 06:25] LABS: MEAN CELL VOLUME 83.5 fL (80-100); MEAN CORPUSCULAR HGB CONC 33.6 g/dl (32-36); MEAN PLATELET VOLUME 8.9 fL (7.4-10.4); PLATELET COUNT 216 K/uL (130-400); RED BLOOD COUNT 5.39 M/uL (4.7-6.1)
[2017-08-30 07:03] VITALS: BP 126/63; PULSE 63; TEMP 36.6; O2SAT 98
[2017-08-30 07:06] LABS: CALCIUM 8.6 mg/dl (8.5-10.1); CREATININE 0.76 mg/dl (0.60-1.40); POTASSIUM 3.6 mmol/L (3.5-5.1)
[2017-08-30] MEDS: CLOBETASOL PROPIONATE 0.05% OINT 15 GM TUBE EXT SCH (08:35)
[2017-08-30] MEDS: LUBIPROSTONE 8 MCG CAP PO SCH (08:39)
[2017-08-30] MEDS: FLUTICASONE PROPIONATE NA SPR 16 GM BTL NAE SCH (08:39)
[2017-08-30] MEDS: DICYCLOMINE HCL 10 MG CAP PO SCH ×2 (08:40→13:46)
[2017-08-30] MEDS: DOCUSATE SODIUM 100 MG CAP PO SCH (08:40)
[2017-08-30] MEDS: SENNA 8.6 MG TAB PO SCH (08:40)
[2017-08-30] MEDS: GABAPENTIN 400 MG CAP PO SCH ×2 (08:40→13:46)
[2017-08-30] MEDS: AMLODIPINE BESYLATE 5 MG TAB PO SCH (08:40)
[2017-08-30] MEDS: PANTOprazole SOD 40 MG TAB PO SCH (08:40)
[2017-08-30] MEDS: HYDROCORTISONE 10 MG TAB PO SCH (08:40)
--- NOTE | 2017-08-30 09:28 | Gastroenterology Progress Note ---
Progress Note Date of Service: Aug 30, 2017 Subjective Pt evaluation today including: conversation w/ patient, physical exam, chart review, lab review, review of studies, review of inpatient medication list Patient reports feeling significantly improved today. Reports epigastric pain last evening but none this morning. He has tolerated his breakfast. No nausea, vomiting or pyrosis. EGD yesterday with moderate duodenal stenosis s/p endoscopic dilation and duodenal ulcer in the setting of OTC Excedrin use. Continues BID PPI. Review of Systems Constitutional: No problem reported Respiratory: No problem reported Cardiac: No problem reported Abdomen: + see HPI Medications Current Inpatient Medications Medications (Trade) Dose Ordered Sig/Bruce Route Start Time Stop Time Status Last Admin Dose Admin Ondansetron HCl (Zofran Inj) 4 mg Q6H PRN IV 08/28/17 21:00 09/27/17 20:59 Hydromorphone HCl (Dilaudid Inj) 1 mg Q4HWA PRN IV 08/28/17 22:15 09/11/17 22:14 08/29/17 22:16 1 MG Amitriptyline HCl (Elavil Tab) 75 mg HS PO 08/29/17 21:00 09/28/17 20:59 08/29/17 20:45 75 MG Amlodipine Besylate (Norvasc Tab) 5 mg QAM PO 08/29/17 09:00 09/28/17 08:59 08/30/17 08:40 5 MG Atenolol (Tenormin Tab) 25 mg BID PO 08/29/17 09:00 09/28/17 08:59 08/30/17 08:40 25 MG Atorvastatin Calcium (Lipitor Tab) 80 mg QPM PO 08/29/17 21:00 09/28/17 20:59 08/29/17 20:48 80 MG Benzonatate (Tessalon Perles Cap) 100 mg Q8 PRN PO 08/28/17 23:30 09/27/17 23:29 Dicyclomine HCl (Bentyl Cap) 10 mg TID PO 08/29/17 09:00 09/28/17 08:59 08/30/17 08:40 10 MG Docusate Sodium (coLACE CAP) 100 mg BID PO 08/29/17 09:00 09/28/17 08:59 08/30/17 08:40 100 MG Gabapentin (Neurontin Cap) 400 mg TID PO 08/29/17 09:00 09/28/17 08:59 08/30/17 08:40 400 MG Hydrocortisone (Cortef Tab) 10 mg QAM PO 08/29/17 09:00 09/28/17 08:59 08/30/17 08:40 10 MG Levothyroxine Sodium (Synthroid Tab) 75 mcg DAILYBB PO 08/29/17 06:00 09/28/17 05:59 08/30/17 06:22 75 MCG Promethazine HCl (Phenergan Tab) 25 mg Q6H PRN PO 08/28/17 23:30 09/27/17 23:29 Senna (Senokot Tab) 8.6 mg BID PO 08/29/17 09:00 09/28/17 08:59 08/30/17 08:40 8.6 MG Clobetasol Propionate (Clobetasol Propionate Oint) 1 appln BID EXT 08/29/17 09:00 09/28/17 08:59 Acetaminophen (Tylenol Tab) 1,000 mg HS PO 08/29/17 21:00 09/28/17 20:59 Lubiprostone (Amitiza) 24 mcg BID PO 08/29/17 09:00 09/28/17 08:59 08/30/17 08:39 24 MCG Trolamine Salicylate (Myoflex Cream) 1 appln DAILY PRN EXT 08/28/17 23:30 09/27/17 23:29 Fluticasone Propionate (Flonase Nasal [place]) 2 sprays BID DENNIS 08/29/17 09:00 09/28/17 08:59 08/30/17 08:39 2 SPRAYS Morphine Sulfate (Oramorph Sr Tab) 30 mg Q12H PO 08/29/17 06:00 09/12/17 05:59 08/30/17 06:22 30 MG Tizanidine HCl (Zanaflex Tab) 8 mg TID PRN PO 08/28/17 23:30 09/27/17 23:29 Pantoprazole Sodium (Protonix Tab) 40 mg BID PO 08/29/17 09:00 09/28/17 08:59 08/30/17 08:40 40 MG Diphenhydramine HCl (Benadryl Cap) 50 mg HS PO 08/29/17 21:00 09/28/17 20:59 Objective Vital Signs Date Time Temp Pulse Resp B/P (MAP) Pulse Ox O2 Delivery O2 Flow Rate FiO2 08/30/17 07:25 Room Air 08/30/17 07:03 36.6 63 20 126/63 (84) 98 Room Air 08/29/17 23:27 36.8 91 16 116/72 (87) 97 Room Air 08/29/17 20:50 76 131/76 (94) 08/29/17 20:45 Room Air 08/29/17 15:54 36.8 90 18 154/68 (96) 97 Room Air 08/29/17 14:19 36.6 80 18 131/83 (99) 99 Room Air 08/29/17 13:52 86 18 167/86 (113) 100 Room Air 08/29/17 13:34 92 18 153/79 (103) 100 Room Air 08/29/17 13:19 90 16 134/74 (94) 100 Room Air 08/29/17 12:00 36.8 91 18 148/71 (96) 99 Room Air 08/29/17 11:40 36.7 85 20 117/80 94 Room Air Physical Exam General Appearance: WD/WN, no apparent distress Cardiovascular: regular rate, rhythm Abdomen: normal bowel sounds, non tender, soft Neurologic/Psych: alert, normal mood/affect, oriented x 3 Skin: warm/dry Laboratory Results Last 24 Hours Test 08/30/17 06:07 White Blood Count 8.90 K/uL Red Blood Count 5.39 M/uL Hemoglobin 15.1 g/dL Hematocrit 45.0 % Mean Corpuscular Volume 83.5 fL Mean Corpuscular Hemoglobin 28.0 pg Mean Corpuscular Hemoglobin Concent 33.6 g/dl RDW Standard Deviation 42.6 fL RDW Coefficient of Variation 14.0 % Platelet Count 216 K/uL Mean Platelet Volume 8.9 fL Sodium Level 141 mmol/L Potassium Level 3.6 mmol/L Chloride Level 107 mmol/L Carbon Dioxide Level 24 mmol/L Anion Gap 10.0 mmol/L Blood Urea Nitrogen 19 mg/dl Creatinine 0.76 mg/dl Est Creatinine Clear Calc Drug Dose 100.8 ml/min Estimated GFR () 113.3 Estimated GFR (Non- 97.8 BUN/Creatinine Ratio 25.0 Random Glucose 94 mg/dl Calcium Level 8.6 mg/dl Assessment and Plan Patient is a 62 year old male with a history of GERD with Schatzki's ring and duodenal stricture admitted with worsened epigastric pain and nausea with duodenal ulcer. Symptoms now improved after therapeutic duodenal dilation yesterday. 1. Continue Pantoprazole 40 mg BID indefinitely. 2. Avoid Excedrin and other OTC NSAIDs. 3. Diet as tolerated. 4. Okay for discharge today from a GI standpoint. Agree with RALPH Alford as above Abd: Soft, NT, ND, +BS Continue Pantoprazole 40mg by mouth twice daily Continue supportive care.
[2017-08-30] MEDS ORDERED: OXYCODONE/ACETAMINOPHEN 5-325 TAB PO PRN (13:00)
--- NOTE | 2017-08-30 16:01 | Progress Note ---
Medicine Progress Note Date & Time of Visit: Aug 30, 2017 at 16:01. Objective Physical Exam: General- no distress Lungs- clear Heart- RRR Abdomen- + BS, soft, nontender Extremities- no pretibial edema or calf tenderness Neuro- alert . Laboratory Results: Last 24 Hours Test 08/30/17 06:07 White Blood Count 8.90 K/uL Red Blood Count 5.39 M/uL Hemoglobin 15.1 g/dL Hematocrit 45.0 % Mean Corpuscular Volume 83.5 fL Mean Corpuscular Hemoglobin 28.0 pg Mean Corpuscular Hemoglobin Concent 33.6 g/dl RDW Standard Deviation 42.6 fL RDW Coefficient of Variation 14.0 % Platelet Count 216 K/uL Mean Platelet Volume 8.9 fL Sodium Level 141 mmol/L Potassium Level 3.6 mmol/L Chloride Level 107 mmol/L Carbon Dioxide Level 24 mmol/L Anion Gap 10.0 mmol/L Blood Urea Nitrogen 19 mg/dl Creatinine 0.76 mg/dl Est Creatinine Clear Calc Drug Dose 100.8 ml/min Estimated GFR () 113.3 Estimated GFR (Non- 97.8 BUN/Creatinine Ratio 25.0 Random Glucose 94 mg/dl Calcium Level 8.6 mg/dl Assessment & Plan ABDOMINAL PAIN EGD revealed duodenal ulcer without bleeding as well as duodenal stenosis which was dilated. Does not use any aspirin or NSAID's. Continue PPI. Advance diet as tolerated. HYPERTENSION Continue atenolol. CEREBROVASCULAR DISEASE Continue clopidogrel. PANHYPOPITUITARISM S/P resection pituitary adenoma. Continue hydrocortisone and levothyroxine. CHRONIC NECK PAIN Continue usual analgesics. VTE PROPHYLAXIS SCD's. Ambulate. DISPOSITION Expected discharge to home. Family Medicine follow-up with Dr. Rain. . . Current Inpatient Medications: Current Inpatient Medications Medications (Trade) Dose Ordered Sig/Bruce Route Start Time Stop Time Status Last Admin Dose Admin Ondansetron HCl (Zofran Inj) 4 mg Q6H PRN IV 08/28/17 21:00 09/27/17 20:59 Hydromorphone HCl (Dilaudid Inj) 1 mg Q4HWA PRN IV 08/28/17 22:15 09/11/17 22:14 08/29/17 22:16 1 MG Amitriptyline HCl (Elavil Tab) 75 mg HS PO 08/29/17 21:00 09/28/17 20:59 08/29/17 20:45 75 MG Amlodipine Besylate (Norvasc Tab) 5 mg QAM PO 08/29/17 09:00 09/28/17 08:59 08/30/17 08:40 5 MG Atenolol (Tenormin Tab) 25 mg BID PO 08/29/17 09:00 09/28/17 08:59 08/30/17 08:40 25 MG Atorvastatin Calcium (Lipitor Tab) 80 mg QPM PO 08/29/17 21:00 09/28/17 20:59 08/29/17 20:48 80 MG Benzonatate (Tessalon Perles Cap) 100 mg Q8 PRN PO 08/28/17 23:30 09/27/17 23:29 Dicyclomine HCl (Bentyl Cap) 10 mg TID PO 08/29/17 09:00 09/28/17 08:59 08/30/17 13:46 10 MG Docusate Sodium (coLACE CAP) 100 mg BID PO 08/29/17 09:00 09/28/17 08:59 08/30/17 08:40 100 MG Gabapentin (Neurontin Cap) 400 mg TID PO 08/29/17 09:00 09/28/17 08:59 08/30/17 13:46 400 MG Hydrocortisone (Cortef Tab) 10 mg QAM PO 08/29/17 09:00 09/28/17 08:59 08/30/17 08:40 10 MG Levothyroxine Sodium (Synthroid Tab) 75 mcg DAILYBB PO 08/29/17 06:00 09/28/17 05:59 08/30/17 06:22 75 MCG Promethazine HCl (Phenergan Tab) 25 mg Q6H PRN PO 08/28/17 23:30 09/27/17 23:29 Senna (Senokot Tab) 8.6 mg BID PO 08/29/17 09:00 09/28/17 08:59 08/30/17 08:40 8.6 MG Clobetasol Propionate (Clobetasol Propionate Oint) 1 appln BID EXT 08/29/17 09:00 09/28/17 08:59 Acetaminophen (Tylenol Tab) 1,000 mg HS PO 08/29/17 21:00 09/28/17 20:59 Lubiprostone (Amitiza) 24 mcg BID PO 08/29/17 09:00 09/28/17 08:59 08/30/17 08:39 24 MCG Trolamine Salicylate (Myoflex Cream) 1 appln DAILY PRN EXT 08/28/17 23:30 09/27/17 23:29 Fluticasone Propionate (Flonase Nasal [place]) 2 sprays BID DENNIS 08/29/17 09:00 09/28/17 08:59 08/30/17 08:39 2 SPRAYS Morphine Sulfate (Oramorph Sr Tab) 30 mg Q12H PO 08/29/17 06:00 09/12/17 05:59 08/30/17 06:22 30 MG Tizanidine HCl (Zanaflex Tab) 8 mg TID PRN PO 08/28/17 23:30 09/27/17 23:29 Pantoprazole Sodium (Protonix Tab) 40 mg BID PO 08/29/17 09:00 09/28/17 08:59 08/30/17 08:40 40 MG Diphenhydramine HCl (Benadryl Cap) 50 mg HS PO 08/29/17 21:00 09/28/17 20:59 Oxycodone/ Acetaminophen (Percocet 5-325mg Tab) 2 tab Q4H PRN PO 08/30/17 13:00 09/13/17 12:59 08/30/17 13:02 2 TAB
[2017-08-30] MEDS ORDERED: PRT40 PO ×2 (16:02)
--- NOTE | 2017-08-30 16:11 | Discharge Instructions ---
Discharge Instructions Date of Service Aug 30, 2017. Admission Reason for Admission: Abdominal Pain Discharge Discharge Diagnosis / Problem: duodenal ulcer Discharge Goals Goal(s): Improve disease control Activity Recommendations Activity Limitations: resume your previous activity . Instructions / Follow-Up Instructions / Follow-Up APPOINTMENTS: FAMILY MEDICINE 09/05/2017 11:00 AM Johnathan Rain III, MD GASTROENTEROLOGY Dr. Dahl as needed. OTHER INSTRUCTIONS: EGD (upper endoscopy) showed an ulcer in the duodenum (first part of small intestine) as well as some narrowing of the duodenum. Avoid any medicines that contain aspirin or nonsteroidal anti-inflammatory medications like ibuprofen (Advil, Motrin) or naproxen (Aleve). Seek medical attention if you have: * temperature above 101 * chest pain or trouble breathing * abdominal pain, nausea, vomiting * diarrhea, dark stools or bloody stools * any unanswered questions or concerns Call 911 if symptoms are severe. Call if you have any questions or problems. My cell # is [phone]. You can also reach a [facility] hospitalist on duty at [facility] 24 hours a day by calling [phone]. Please take good care of yourself. Johnathan Ware . Current Hospital Diet Patient's current hospital diet: AHA Diet (Heart Healthy), Low Fiber Diet Discharge Diet Recommended Diet: AHA Diet (Heart Healthy), Low Fiber Diet (for 2 weeks) Procedures Procedures Performed: EGD with Duodenal Dilitation Pending Studies Studies pending at discharge: no Laboratory Results Hemoglobin A1c Test 06/27/17 09:08 Range/Units Estimated Average Glucose 128 mg/dl Hemoglobin A1c 6.1 H 4.5-5.6 % Lipid Panel Test 06/28/17 06:15 Range/Units Triglycerides Level 300 H 0-150 mg/dl Cholesterol Level 156 0-200 mg/dl HDL Cholesterol 47 mg/dl Cholesterol/HDL Ratio 3.3 LDL Cholesterol, Calculated 49 mg/dl Medical Emergencies . Who to Call and When: Medical Emergencies: If at any time you feel your situation is an emergency, please call 911 immediately. . Non-Emergent Contact Non-Emergency issues call your: Primary Care Provider, Senior Interactive Developer, Hospital Doctor . . "Provider Documentation" section prepared by Johnathan Ware. . VTE Core Measure Inpt VTE Proph given/why not?: SCD's [place] Drug Monitoring Program Search Results: patient reviewed within database, no issues identified
[2017-08-30 16:24] VITALS: BP 126/63; PULSE 63; TEMP 36.6; O2SAT 98
[2017-08-30] MEDS ORDERED: HYDROmorphone INJ 1 MG/ML SYR IV ONE (18:00)
== END 2017-08-30 17:04 | disposition home or self-care (01) | DRG 382 ==
LOC: C.EDB 20:00 → C.MSN 20:57 → ENRESERV 21:21
PROVIDERS: ADMIT Internal Medicine; ATTEND Hospitalist
PROC: 0D798ZZ Dilation of Duodenum, Via Natural or Artificial Opening Endoscopic (ICD-10-PCS; principal; 2017-08-29 12:15)
PROC: 0DJ08ZZ Inspection of Upper Intestinal Tract, Via Natural or Artificial Opening Endoscopic (ICD-10-PCS; principal; 2017-08-29 12:15)
DX: K31.5 Obstruction of duodenum (principal); K26.9 Duodenal ulcer, unspecified as acute or chronic, without hemorrhage or perforation; I10 Essential (primary) hypertension; N40.0 Benign prostatic hyperplasia without lower urinary tract symptoms; K21.9 Gastro-esophageal reflux disease without esophagitis; E78.5 Hyperlipidemia, unspecified; K58.9 Irritable bowel syndrome, unspecified; K29.70 Gastritis, unspecified, without bleeding; J40 Bronchitis, not specified as acute or chronic; K59.00 Constipation, unspecified; I67.9 Cerebrovascular disease, unspecified; Z86.73 Personal history of transient ischemic attack (TIA), and cerebral infarction without residual deficits

== ENCOUNTER 2017-12-24 22:34 | Emergency (ER) | payer OTHER, BC ==
[~2017-12-24] VITALS: Ht 175.3 cm; Wt 76.0 kg
[~2017-12-24 22:34] MED LIST changes: +ALBU18002 INH; -ASPI-391 PO; -AZIT500T3 PO; -BENZ100C84 PO; -DIPH38TA PO; +GABA-1220 PO; -GABA1CAP5 PO; +MOME6000 NAE; -PANT40TA PO; -PRED20TA PO; +PRT40 PO; -SUCR1TAB29 PO
[2017-12-24 22:37] VITALS: TEMP 36.6; Ht 175.3 cm; Wt 76.0 kg
[2017-12-24] MEDS ORDERED: GELATIN SPONGE 12-7MM EXT STA (22:47)
[2017-12-24] MEDS ORDERED: GELATIN SPONGE 12-7MM ONE (22:49)
[2017-12-24] MEDS ORDERED: LEVO88TA3 PO (22:49)
--- NOTE | 2017-12-24 23:25 | EMERGENCY ROOM VISIT NOTE ---
History First contact with patient: 22:39 Chief Complaint: BLEEDING Stated Complaint: BLEEDING INSIDE CHEEK FOR SEVERAL HOURS Nursing Triage Summary: see triage note History of Present Illness The patient is a 62 year old male who presents to the Emergency Room with complaints of bleeding on the inside of the right cheek. The patient states that he accidentally bit his cheek approximately 2 hours ago and has had continued bleeding. He takes Plavix and also states that he has been taking aspirin recently for chronic pain. He denies any pain. He states this has happened before but he was able to get the bleeding stopped at home. Review of Systems A complete 10 point review of systems was reviewed with the patient with pertinent positives and negatives as per history of present illness. All else were negative. Past Medical/Surgical History Medical Problems: (1) Abdominal pain (2) Benign hypertension (3) BPH (benign prostatic hyperplasia) (4) Cervical post-laminectomy syndrome (5) Chronic neck pain (6) Deviated nasal septum (7) Facet arthropathy, cervical (8) GERD (gastroesophageal reflux disease) (9) History of TIA (transient ischemic attack) (10) Hyperlipidemia (11) IBS (12) Panhypopituitarism (13) Pituitary adenoma (14) Spondylosis, cervical (15) Tonsillectomy Surgical Problems: (1) H/O elbow surgery (2) S/P Achilles tendon repair (3) S/P cervical spinal fusion (4) S/P nasal septoplasty (5) S/p removal of turbinate bones (6) S/P shoulder surgery (7) S/P tonsillectomy and adenoidectomy (8) S/P UPPP (uvulopalatopharyngoplasty) (9) Status post transsphenoidal pituitary resection Family History Hypertension FATHER MOTHER Social History Smoking Status: Never Smoker Alcohol Use: none Drug Use: none Marital Status: single Housing Status: lives alone Occupation Status: disabled Current/Historical Medications Scheduled Amitriptyline Hcl (Elavil), 75 MG PO HS Amlodipine (Norvasc), 5 MG PO QAM Atenolol (Tenormin), 25 MG PO BID Atorvastatin (Lipitor), 80 MG PO QPM Clobetasol Propionate (Temovate), 1 APPLN TOP BID Clopidogrel (Plavix), 75 MG PO DAILY Dicyclomine Hcl (Dicyclomine Hcl), 10 MG PO TID Docusate Sodium (Docusate Sodium), 100 MG PO BID Gabapentin (Neurontin), 600 MG PO TID Hydrocortisone (Cortef), 10 MG PO QAM Levothyroxine Sodium (Levothyroxine Sodium), 88 MCG PO DAILY Lubiprostone (Amitiza), 24 MCG PO BID Mometasone Furoate (Nasal) (Mometasone Furoate), 2 SPRAY DENNIS BID Morphine Sulfate (Morphine Sulfate Er), 30 MG PO BID Multiple Vitamins W/ Minerals (Centrum Silver Adult 50+), 1 TAB PO DAILY Pantoprazole (Pantoprazole Sodium), 40 MG PO BID Senna (Senokot), 1 TABS PO BID Scheduled PRN Albuterol Sulfate (Proair Respiclick), 2 PUFF INH QID PRN for SOB/Wheezing Menthol (Topical Analgesic) (Icy Hot Patch), 1 PATCH EXT DAILY PRN for Pain Oxycodone/Acetaminophen 10MG/325MG (Percocet 10MG/325MG), 1 TAB PO Q4H PRN for Pain Promethazine HCl (Promethazine HCl), 25 MG PO Q6H PRN for Nausea Tizanidine (Zanaflex), 2 TABS PO TID PRN for Muscle Spasms Physical Exam Vital Signs Date Time Temp Pulse Resp B/P (MAP) Pulse Ox O2 Delivery O2 Flow Rate FiO2 12/24/17 23:37 84 20 161/74 100 12/24/17 22:37 36.6 115 18 180/84 99 Room Air Physical Exam VITALS: Vitals are noted on the nurse's note and reviewed by myself. Vital signs stable. GENERAL: This is a 62-year-old male, in no acute distress, nondiaphoretic, well- developed well-nourished. MOUTH: There is a small abrasion to the inner right lower cheek with slow oozing blood. NEURO: Patient was alert and oriented to person place and time. Medical Decision & Procedures Procedure Verbal consent was obtained to perform the procedure. The area of bleeding was identified and a tuberculin needle was used to infiltrate 0.5 mL of 1% lidocaine with epinephrine into the area of bleeding. Hemostasis was achieved. The patient tolerated the procedure well. No complications were met. Medical Decision The patient was evaluated as above. He bit the inside of his cheek and has had persistent bleeding, likely due to his anticoagulant use. Initially I attempted to Place Gelfoam in the area. This did seem to slow the bleeding initially, but it then returned. Benefits/risks of injection of lidocaine with epinephrine were discussed with the patient. He prefers to proceed with the injection to help stop the bleeding. This was performed as noted in the procedure section. The patient tolerated the procedure well. The bleeding stopped. Conservative measures were discussed with the patient. He will follow -up with his primary care provider as needed. He verbalized understanding of my assessment and treatment plan and was discharged home in good condition. Medication Reconcilliation Current Medication List: was personally reviewed by me Blood Pressure Screening Patient's blood pressure: Elevated blood pressure Blood pressure disposition: Elevated BP felt to be situational Impression Primary Impression: Laceration of cheek Departure Information Dispostion Home / Self-Care Condition GOOD Referrals No Doctor, Assigned (PCP) [facility] Instructions [facility] Additional Instructions Keep some gauze in the side of the cheek to prevent recurrent bleeding. You may also ice the cheek. Follow-up with your primary care provider as needed. Return here for any recurrent or worsening bleeding.
[2017-12-24] MEDS ORDERED: LIDOCAINE/EPINEPHRINE 1% 20 ML VIAL ONE (23:27)
[2017-12-24 23:37] VITALS: BP 161/74; PULSE 84; O2SAT 100
== END 2017-12-24 23:38 | disposition home or self-care (01) ==
LOC: C.EDB 22:35 → C.EDA 23:38
DX: S01.512A Laceration without foreign body of oral cavity, initial encounter (principal); X58.XXXA Exposure to other specified factors, initial encounter; I10 Essential (primary) hypertension; N40.0 Benign prostatic hyperplasia without lower urinary tract symptoms; M54.2 Cervicalgia; G89.29 Other chronic pain; K21.9 Gastro-esophageal reflux disease without esophagitis; E78.5 Hyperlipidemia, unspecified; K58.9 Irritable bowel syndrome, unspecified; Z79.02 Long term (current) use of antithrombotics/antiplatelets; Z79.891 Long term (current) use of opiate analgesic; Z86.73 Personal history of transient ischemic attack (TIA), and cerebral infarction without residual deficits; Z98.1 Arthrodesis status; Z82.49 Family history of ischemic heart disease and other diseases of the circulatory system

== ENCOUNTER 2018-01-02 18:34 | Emergency (ER) | payer OTHER, BC ==
[~2018-01-02] VITALS: Ht 175.3 cm; Wt 76.1 kg
[~2018-01-02 18:34] MED LIST changes: -LEVO75TA5 PO; +LEVO88TA3 PO; -SIME80CH PO
[2018-01-02 18:37] VITALS: TEMP 37.5; Ht 175.3 cm; Wt 76.1 kg
[2018-01-02] MEDS ORDERED: KETOROLAC TROMETHAMINE 60 MG/2 ML VIAL IM STA (19:05)
[2018-01-02] MEDS ORDERED: HYDROmorphone INJ 1 MG/ML SYR IM STA (19:05)
[2018-01-02] MEDS ORDERED: ONDANSETRON 4MG OD TAB PO STA (19:05)
[2018-01-02] MEDS ORDERED: DEXAMETHASONE **PF** INJ 10 MG/ML VIAL IM ONE (19:15)
--- NOTE | 2018-01-02 20:14 | EMERGENCY ROOM VISIT NOTE ---
History First contact with patient: 18:56 Chief Complaint: NECK PAIN Stated Complaint: SEVERE PAIN IN NECK/SHOULDERS History of Present Illness The patient is a 62 year old male who presents to the Emergency Room with complaints of an acute exacerbation of chronic neck pain. The patient reports that he is currently under the management of [facility], having undergone trigger point injections approximately 3 weeks ago. He also takes additional pain medications as prescribed by his family doctor. The patient reports that he is failed all other treatment options, including Botox, physical therapy, chiropractic, and acupuncture treatments. The patient reports that he usually receives injections while in the emergency department that helps him for several weeks. He is requesting the same treatment. The patient denies any headache, fevers or chills, runny nose, sinus congestion, sore throat, chest pain, shortness of breath or cough. The patient rates his discomfort a 9 out of 10. The pain is worsened with movement of the neck. He denies any recent injury to the neck or back. He denies any pain extending into the middle or lower back region. Review of Systems 10 system review was performed and was negative except for pertinent positives and negatives as indicated in history of present illness Past Medical/Surgical History Medical Problems: (1) Abdominal pain (2) Benign hypertension (3) BPH (benign prostatic hyperplasia) (4) Cervical post-laminectomy syndrome (5) Chronic neck pain (6) Deviated nasal septum (7) Facet arthropathy, cervical (8) GERD (gastroesophageal reflux disease) (9) History of TIA (transient ischemic attack) (10) Hyperlipidemia (11) IBS (12) Panhypopituitarism (13) Pituitary adenoma (14) Spondylosis, cervical (15) Tonsillectomy Surgical Problems: (1) H/O elbow surgery (2) S/P Achilles tendon repair (3) S/P cervical spinal fusion (4) S/P nasal septoplasty (5) S/p removal of turbinate bones (6) S/P shoulder surgery (7) S/P tonsillectomy and adenoidectomy (8) S/P UPPP (uvulopalatopharyngoplasty) (9) Status post transsphenoidal pituitary resection Family History Hypertension FATHER MOTHER Social History Smoking Status: Never Smoker Alcohol Use: none Drug Use: none Marital Status: single Housing Status: lives alone Occupation Status: disabled Current/Historical Medications Scheduled Amitriptyline Hcl (Elavil), 75 MG PO HS Amlodipine (Norvasc), 5 MG PO QAM Atenolol (Tenormin), 25 MG PO BID Atorvastatin (Lipitor), 80 MG PO QPM Clobetasol Propionate (Temovate), 1 APPLN TOP BID Clopidogrel (Plavix), 75 MG PO DAILY Dicyclomine Hcl (Dicyclomine Hcl), 10 MG PO TID Docusate Sodium (Docusate Sodium), 100 MG PO BID Gabapentin (Neurontin), 600 MG PO TID Hydrocortisone (Cortef), 10 MG PO QAM Levothyroxine Sodium (Levothyroxine Sodium), 88 MCG PO DAILY Lubiprostone (Amitiza), 24 MCG PO BID Mometasone Furoate (Nasal) (Mometasone Furoate), 2 SPRAY DENNIS BID Morphine Sulfate (Morphine Sulfate Er), 30 MG PO BID Multiple Vitamins W/ Minerals (Centrum Silver Adult 50+), 1 TAB PO DAILY Pantoprazole (Pantoprazole Sodium), 40 MG PO BID Senna (Senokot), 1 TABS PO BID Scheduled PRN Albuterol Sulfate (Proair Respiclick), 2 PUFF INH QID PRN for SOB/Wheezing Menthol (Topical Analgesic) (Icy Hot Patch), 1 PATCH EXT DAILY PRN for Pain Oxycodone/Acetaminophen 10MG/325MG (Percocet 10MG/325MG), 1 TAB PO Q4H PRN for Pain Promethazine HCl (Promethazine HCl), 25 MG PO Q6H PRN for Nausea Tizanidine (Zanaflex), 2 TABS PO TID PRN for Muscle Spasms Physical Exam Vital Signs Date Time Temp Pulse Resp B/P (MAP) Pulse Ox O2 Delivery O2 Flow Rate FiO2 01/02/18 18:37 37.5 108 18 157/76 96 Physical Exam CONSTITUTIONAL: Healthy and well nourished. Alert and oriented X 3 with positive affect. Patient appears in moderate discomfort from pain. HEENT: Normocephalic, atraumatic. Pupils equal, round and reactive. NECK: Full active range of motion without discomfort. Patient has generalized tenderness to palpation of the neck and right trapezius region. RESPIRATORY: Clear to auscultation bilaterally with no wheezing, crackles, rhonchi or stridor. CARDIOVASCULAR: Regular rate and rhythm with no murmurs, rubs or gallops. MUSCULOSKELETAL: Patient has no tenderness to palpation through the central thoracolumbar spine or shoulders. Equal shop cooper strength bilaterally. INTEGUMENTARY: No rash or other significant dermatologic conditions noted. NEUROLOGIC: No focal neurologic deficits noted. Upper extremities are sensory intact. Medical Decision & Procedures Medications Administered Medications (Trade) Dose Ordered Sig/Bruce Route Start Time Stop Time Status Last Admin Dose Admin Hydromorphone HCl (Dilaudid Inj) 1 mg ONE STAT IM 01/02/18 19:05 01/02/18 19:08 DC 01/02/18 19:34 1 MG Ketorolac Tromethamine (Toradol Inj) 60 mg NOW STAT IM 01/02/18 19:05 01/02/18 19:08 DC 01/02/18 19:33 60 MG Dexamethasone Sodium Phosphate (Dexamethasone Inj Pf) 10 mg NOW ONCE IM 01/02/18 19:15 01/02/18 19:16 DC 01/02/18 19:33 10 MG Ondansetron HCl (Zofran Odt) 4 mg NOW STAT PO 01/02/18 19:05 01/02/18 19:08 DC 01/02/18 19:32 4 MG ED Course Patient history and physical exam were performed. Nurse's notes were reviewed. Vital signs were reviewed and were normal. Review of the [place] Prescription Drug Monitoring Program shows that the patient receives regular prescriptions from his PCP for morphine sulfate 30 mg extended release tablets, as well as Percocet 10/325 tablets. The patient presents with a list requesting IM Dilaudid, Toradol and Decadron, along with Zofran ODT. The patient was therefore administered Dilaudid 1 mg, Toradol 60 mg and Decadron 10 mg IM, along with Zofran 4 mg ODT. The patient was encouraged to continue follow-up with the pain clinic and his PCP for further management. Medical Decision Patient denies any recent trauma to suggest herniated disc or fracture. I also do not suspect spinal abscess, hematoma or other significant soft tissue etiologies. [place] Drug Monitoring Program Search Results: patient reviewed within database, see additional documentation Medication Reconcilliation Current Medication List: was personally reviewed by me Blood Pressure Screening Patient's blood pressure: Normal blood pressure Impression Primary Impression: Chronic neck pain Departure Information Dispostion Home / Self-Care Forms HOME CARE DOCUMENTATION FORM, IMPORTANT VISIT INFORMATION [facility] Additional Instructions Continue follow-up with the pain clinic and your family doctor for further management.
[2018-01-02 20:16] VITALS: BP 151/76; PULSE 106; O2SAT 98
== END 2018-01-02 20:17 | disposition home or self-care (01) ==
LOC: C.EDB 18:35 → C.EDD 20:17
DX: M54.2 Cervicalgia (principal); G89.29 Other chronic pain; I10 Essential (primary) hypertension; K21.9 Gastro-esophageal reflux disease without esophagitis; Z86.73 Personal history of transient ischemic attack (TIA), and cerebral infarction without residual deficits; E78.5 Hyperlipidemia, unspecified; K58.9 Irritable bowel syndrome, unspecified; E23.0 Hypopituitarism; Z98.1 Arthrodesis status; Z82.49 Family history of ischemic heart disease and other diseases of the circulatory system; Z79.02 Long term (current) use of antithrombotics/antiplatelets; Z79.899 Other long term (current) drug therapy

== ENCOUNTER → 2018-01-17 | Outpatient (CLI) | payer OTHER, BC | END | disposition home or self-care (01) | LOC: C.LAB 07:30 | PROVIDERS: ATTEND Internal Medicine Endocrinology, Diabetes & Metabolism | DX: K26.9 Duodenal ulcer, unspecified as acute or chronic, without hemorrhage or perforation (principal); D35.2 Benign neoplasm of pituitary gland ==

== ENCOUNTER → 2018-02-06 | Outpatient (CLI) | payer OTHER, BC ==
[~2018-02-06] MED LIST changes: -OXYC-106 PO; +OXYC10TA80 PO
[2018-02-06 12:41] LABS: ALBUMIN 3.9 gm/dl (3.4-5.0); ALT/SGPT 21 U/L (12-78); AST/SGOT 24 U/L (15-37); BLOOD UREA NITROGEN 22 mg/dl (7-18); CALCIUM 8.9 mg/dl (8.5-10.1); CARBON DIOXIDE 30 mmol/L (21-32); CREATININE 0.88 mg/dl (0.60-1.40); GLUCOSE 104 mg/dl (70-99); SODIUM 143 mmol/L (136-145)
[2018-02-06 12:51] LABS: ALKALINE PHOSPHATASE 168 U/L (45-117); TOTAL PROTEIN 7.4 gm/dl (6.4-8.2)
== END | disposition home or self-care (01) ==
LOC: C.LAB 10:04
PROVIDERS: ATTEND Internal Medicine Endocrinology, Diabetes & Metabolism
DX: E03.8 Other specified hypothyroidism (principal)

== ENCOUNTER → 2018-03-02 | Day surgery (SDC) | payer OTHER, BC ==
[~2018-03-02] VITALS: Ht 175.3 cm; Wt 76.5 kg
[~2018-03-02] MED LIST changes: +ASPI-391 PO; +COSYNTROPIN INJ 1 MCG in SYRINGE 0 ML IV SCH; +DIPH38TA PO; +OXYC-106 PO; -OXYC10TA80 PO; +POLY335019 PO
[2018-03-02 07:45] VITALS: BP 144/67; PULSE 76; TEMP 36.6; O2SAT 98; Ht 175.3 cm; Wt 76.5 kg
[2018-03-02 09:04] VITALS: BP 137/77; PULSE 69; TEMP 36.4; O2SAT 98
[2018-03-02 09:39] VITALS: BP 133/69; PULSE 64; TEMP 36.5; O2SAT 100
== END | disposition home health service (06) ==
LOC: C.MTU 07:17
PROVIDERS: ATTEND Internal Medicine Endocrinology, Diabetes & Metabolism
DX: E27.49 Other adrenocortical insufficiency (principal)

== ENCOUNTER → 2018-03-02 | Outpatient (CLI) | payer OTHER, BC ==
[~2018-03-02] MED LIST changes: -COSYNTROPIN INJ 1 MCG in SYRINGE 0 ML IV SCH
== END | disposition home or self-care (01) ==
LOC: C.LAB 09:15
PROVIDERS: ATTEND Internal Medicine Endocrinology, Diabetes & Metabolism
DX: D35.2 Benign neoplasm of pituitary gland (principal); E23.0 Hypopituitarism

== ENCOUNTER 2018-03-05 18:01 | Emergency (ER) | payer OTHER, BC ==
[~2018-03-05] VITALS: Ht 167.6 cm; Wt 76.0 kg
[~2018-03-05 18:01] MED LIST changes: -ALBU18002 INH; -MENT5PAD4 EXT
[2018-03-05 18:03] VITALS: BP 132/72; TEMP 37.2; Ht 167.6 cm; Wt 76.0 kg
--- NOTE | 2018-03-05 19:30 | DIAGNOSTIC IMAGING REPORT ---
CERVICAL SPINE 5 VIEWS HISTORY: Fall. Neck pain. COMPARISON: Cervical spine 06/15/2017. FINDINGS: The cervical spine is visualized from C1 through the superior endplate of T1. There is no fracture. No subluxation. Anterior cervical discectomy and fusion at C5-C6. The hardware appears intact. Prevertebral soft tissues and the atlantodens interval are intact. IMPRESSION: No fracture or subluxation within the cervical spine. Electronically signed by: Ty Bo M.D. 03/05/2018 7:29 PM Dictated Date/Time: 03/05/2018 7:27 PM
--- NOTE | 2018-03-05 19:31 | DIAGNOSTIC IMAGING REPORT ---
THORACIC SPINE 3 VIEWS HISTORY: Fall. Back pain. COMPARISON: None. FINDINGS: There is no fracture. No subluxation. Mild degenerative disease throughout the thoracic spine. IMPRESSION: No fracture or subluxation within the thoracic spine. Electronically signed by: Ty Bo M.D. 03/05/2018 7:30 PM Dictated Date/Time: 03/05/2018 7:29 PM
--- NOTE | 2018-03-05 19:32 | DIAGNOSTIC IMAGING REPORT ---
LUMBAR SPINE 5 VIEWS HISTORY: Fall. Back pain. COMPARISON: None. FINDINGS: There is no fracture. No subluxation. Disc spaces are preserved. IMPRESSION: No fracture or subluxation within the lumbar spine. Electronically signed by: Ty Bo M.D. 03/05/2018 7:31 PM Dictated Date/Time: 03/05/2018 7:30 PM
--- NOTE | 2018-03-05 19:33 | DIAGNOSTIC IMAGING REPORT ---
PELVIS ONE VIEW HISTORY: Fall. Pelvic pain. COMPARISON: None. FINDINGS: There is no fracture or dislocation. Soft tissues are unremarkable. Mild osteoarthritis within the bilateral hips. IMPRESSION: No fracture or dislocation within the pelvis or hips. Electronically signed by: Ty Bo M.D. 03/05/2018 7:32 PM Dictated Date/Time: 03/05/2018 7:31 PM
--- NOTE | 2018-03-05 19:34 | DIAGNOSTIC IMAGING REPORT ---
RIGHT KNEE 2 VIEWS HISTORY: Right knee pain. Fall. COMPARISON: None. FINDINGS: There is no fracture or dislocation. Soft tissues are unremarkable. No significant knee effusion. Mild osteoarthritis within the medial compartment of the knee. IMPRESSION: No fractures. Electronically signed by: Ty Bo M.D. 03/05/2018 7:33 PM Dictated Date/Time: 03/05/2018 7:32 PM
--- NOTE | 2018-03-05 19:37 | DIAGNOSTIC IMAGING REPORT ---
CHEST 2 VIEWS ROUTINE HISTORY: Fall. Atypical chest pain. COMPARISON: Chest 06/27/2017. FINDINGS: There are low lung volumes. The heart is normal in size. The lungs are clear. No pleural effusions. No pneumothorax. Cervical spinal fusion hardware is noted. IMPRESSION: No acute process. Electronically signed by: Ty Bo M.D. 03/05/2018 7:35 PM Dictated Date/Time: 03/05/2018 7:34 PM
[2018-03-05 20:00] VITALS: PULSE 82; O2SAT 97
--- NOTE | 2018-03-05 23:27 | EMERGENCY ROOM VISIT NOTE ---
History Report prepared by Rosalba: Zo Sow Under the Supervision of: Dr. Ari Coffey M.D. First contact with patient: 18:09 Chief Complaint: KNEEPAIN Stated Complaint: FELL THIS MORNING,R KNEE PAIN History of Present Illness The patient is a 62 year old male who presents to the Emergency Room with complaints of persistent right knee pain starting around 0300 this morning. The patient slipped at the top of a flight of stairs and fell down around 15 steps. He denies any LOC or head injury. He states he is certain that he did not hit his head. He landed on his upper back. He has been able to limp on his right knee. The pain worsens with movement of his knee. He reports that he is generally sore all over his body. He is having diffuse rib pain which worsens with breathing deeply. He has right hip pain posteriorly. He has back pain mostly in his upper back. He has chronic neck pain which has not felt significantly worse since the fall. He denies any left leg pain, headache, chest pain, abdominal pain, fever, cold symptoms, vomiting, diarrhea, arm pain, or ankle pain. The patient is not on Coumadin. He is on Plavix. He has not noticed any bleeding. Source of History: patient Onset: 0300 Position: knee (right) Quality: other (injury) Timing: other (persistent) Modifying Factors (Worsening): movement Associated Symptoms: + back pain, No fevers, No headache, No chest pain, No vomiting, No abdominal pain, No diarrhea Note: Pt reports rib pain, right hip pain. Review of Systems See HPI for pertinent positives & negatives. A total of 10 systems reviewed and were otherwise negative. 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 (13) Pituitary adenoma (14) Spondylosis, cervical (15) Tonsillectomy Surgical Problems: (1) H/O elbow surgery (2) S/P Achilles tendon repair (3) S/P cervical spinal fusion (4) S/P nasal septoplasty (5) S/p removal of turbinate bones (6) S/P shoulder surgery (7) S/P tonsillectomy and adenoidectomy (8) S/P UPPP (uvulopalatopharyngoplasty) (9) Status post transsphenoidal pituitary resection Family History Hypertension FATHER MOTHER Social History Smoking Status: Never Smoker Alcohol Use: none Drug Use: none Marital Status: single Housing Status: lives alone Occupation Status: disabled Current/Historical Medications Scheduled Amitriptyline Hcl (Elavil), 75 MG PO HS Amlodipine (Norvasc), 5 MG PO QAM Guntrdv-Ttijznbcrkzkj-Arsdxwta (Excedrin Extra Strength), 2 TABS PO BID Atenolol (Tenormin), 25 MG PO BID Atorvastatin (Lipitor), 40 MG PO QPM Clobetasol Propionate (Temovate), 1 APPLN TOP BID Clopidogrel (Plavix), 75 MG PO DAILY Dicyclomine Hcl (Dicyclomine Hcl), 10 MG PO TID Diphenhydramine-Acetaminophen (Excedrin Pm), 2 TABS PO HS Docusate Sodium (Docusate Sodium), 100 MG PO BID Gabapentin (Neurontin), 600 MG PO TID Hydrocortisone (Cortef), 10 MG PO QAM Levothyroxine Sodium (Levothyroxine Sodium), 75 MCG PO DAILY Lubiprostone (Amitiza), 24 MCG PO BID Mometasone Furoate (Nasal) (Mometasone Furoate), 2 SPRAY DENNIS BID Morphine Sulfate (Morphine Sulfate Er), 30 MG PO BID Multiple Vitamins W/ Minerals (Centrum Silver Adult 50+), 1 TAB PO DAILY Pantoprazole (Pantoprazole Sodium), 40 MG PO BID Polyethylene Glycol 3350 (Miralax), 17 GM PO DAILY Senna (Senokot), 1 TABS PO BID Scheduled PRN Oxycodone/Acetaminophen 10MG/325MG (Percocet 10MG/325MG), 1 TAB PO Q4H PRN for Pain Promethazine HCl (Promethazine HCl), 25 MG PO Q6H PRN for Nausea Tizanidine (Zanaflex), 2 TABS PO TID PRN for Muscle Spasms Allergies Coded Allergies: No Known Allergies (Unverified , 03/02/18) Physical Exam Vital Signs Date Time Temp Pulse Resp B/P (MAP) Pulse Ox O2 Delivery O2 Flow Rate FiO2 03/05/18 20:00 82 18 97 03/05/18 18:03 37.2 90 18 132/72 94 Room Air Physical Exam Constitutional: Vital signs reviewed. Eyes: Pupils are equal round reactive to light. Conjunctiva are noninjected. ENT: Pharynx is clear without erythema or exudate. Mucous membranes are moist. Neck supple without meningeal signs. No uvula. No midline tenderness to the cervical spine. Respiratory: Clear to auscultation bilaterally. Breath sounds are equal bilaterally. Cardiovascular: Regular rate and rhythm. No rubs or gallops. GI: Soft, nondistended and nontender. Bowel sounds are present. Musculoskeletal: No midline tenderness to the thoracic or lumbosacral spine. No bruising to the thorax or back. Very mild scattered areas of soreness to the ribs without distinct tenderness. No tenderness to the hips. No tenderness to the upper extremities or left leg. Tenderness along the medial joint line of the right knee without deformity or swelling. He has no joint laxity to the right knee. Negative anterior and posterior drawer sign. Pain elicited with stress on the medial ligaments. Integumentary: No cyanosis. Neurological: The patient is awake and alert. No focal deficits. Psychiatric: Normal affect. Medical Decision & Procedures ER Provider Diagnostic Interpretation: X-ray results as stated below per interpretation by me and the radiologist: CERVICAL SPINE 5 VIEWS HISTORY: Fall. Neck pain. COMPARISON: Cervical spine 06/15/2017. FINDINGS: The cervical spine is visualized from C1 through the superior endplate of T1. There is no fracture. No subluxation. Anterior cervical discectomy and fusion at C5-C6. The hardware appears intact. Prevertebral soft tissues and the atlantodens interval are intact. IMPRESSION: No fracture or subluxation within the cervical spine. Electronically signed by: Ty Bo M.D. 03/05/2018 7:29 PM Dictated Date/Time: 03/05/2018 7:27 PM CHEST 2 VIEWS ROUTINE HISTORY: Fall. Atypical chest pain. COMPARISON: Chest 06/27/2017. FINDINGS: There are low lung volumes. The heart is normal in size. The lungs are clear. No pleural effusions. No pneumothorax. Cervical spinal fusion hardware is noted. IMPRESSION: No acute process. Electronically signed by: Ty Bo M.D. 03/05/2018 7:35 PM Dictated Date/Time: 03/05/2018 7:34 PM THORACIC SPINE 3 VIEWS HISTORY: Fall. Back pain. COMPARISON: None. FINDINGS: There is no fracture. No subluxation. Mild degenerative disease throughout the thoracic spine. IMPRESSION: No fracture or subluxation within the thoracic spine. Electronically signed by: Ty Bo M.D. 03/05/2018 7:30 PM Dictated Date/Time: 03/05/2018 7:29 PM LUMBAR SPINE 5 VIEWS HISTORY: Fall. Back pain. COMPARISON: None. FINDINGS: There is no fracture. No subluxation. Disc spaces are preserved. IMPRESSION: No fracture or subluxation within the lumbar spine. Electronically signed by: Ty Bo M.D. 03/05/2018 7:31 PM Dictated Date/Time: 03/05/2018 7:30 PM PELVIS ONE VIEW HISTORY: Fall. Pelvic pain. COMPARISON: None. FINDINGS: There is no fracture or dislocation. Soft tissues are unremarkable. Mild osteoarthritis within the bilateral hips. IMPRESSION: No fracture or dislocation within the pelvis or hips. Electronically signed by: Ty Bo M.D. 03/05/2018 7:32 PM Dictated Date/Time: 03/05/2018 7:31 PM RIGHT KNEE 2 VIEWS HISTORY: Right knee pain. Fall. COMPARISON: None. FINDINGS: There is no fracture or dislocation. Soft tissues are unremarkable. No significant knee effusion. Mild osteoarthritis within the medial compartment of the knee. IMPRESSION: No fractures. Electronically signed by: Ty Bo M.D. 03/05/2018 7:33 PM Dictated Date/Time: 03/05/2018 7:32 PM ED Course 1810: The patient was evaluated in room B6. A complete history and physical exam was performed. 1942: I reevaluated the patient. I discussed jose's findings with him. He verbalized agreement of the treatment plan. He has an appointment to see his doctor tomorrow. He was discharged home. Medical Decision This is a 62-year-old male who presents with injuries after a fall. Differential diagnosis includes contusion, compression fracture, rib fracture, ligamentous injury to the knee, meniscal injury. I did perform a limited focused review of portions of the patient's old chart on the electronic medical record. The patient was seen here in December for exacerbation of chronic neck pain. He was treated with Dilaudid. I did evaluate the patient as noted above. Patient is presenting with various aches and pains after falling down the steps in the middle of the night. He mostly complains of pain to his right knee. His examination demonstrates tenderness to medial joint line of the right knee but is otherwise nonfocal. I did order multiple radiographs as noted above. I did review the images myself as well as the radiology report as described above. There are no acute fractures. I did advise him to follow-up with his orthopedic physician for further evaluation to rule out ligamentous or meniscal injury. He states he has an appointment tomorrow with his regular doctor and will go from there. He was given a knee immobilizer. He declined crutches as he states he has them at home. He was discharged in good condition. Medication Reconcilliation Current Medication List: was personally reviewed by me Blood Pressure Screening Patient's blood pressure: Elevated blood pressure Blood pressure disposition: Elevated BP felt to be situational Impression Primary Impression: Internal derangement of right knee Additional Impressions: Back pain Multiple contusions Fall Scribe Attestation The scribe's documentation has been prepared under my direct and personally reviewed by me in its entirety. I confirm that the note above accurately reflects all work, treatment, procedures, and medical decision making performed by me. Departure Information Dispostion Home / Self-Care Referrals Johnathan Rain III, M.D. (PCP) Forms HOME CARE DOCUMENTATION FORM, IMPORTANT VISIT INFORMATION Patient Instructions My [facility] Additional Instructions You have been examined and treated today on an emergency basis only. This is not a substitute for, or an effort to provide, complete comprehensive medical care. It is impossible to recognize and treat all injuries or illnesses in a single emergency department visit. It is therefore important that you follow up closely with your orthopedic physician. Call as soon as possible for an appointment. Return for worsening symptoms or if you develop trouble breathing , headache, numbness or weakness in your arms or legs, abdominal pain, blood in your stool or urine or any other concerning symptoms. Problem Qualifiers Additional Impressions: Back pain Back pain location: thoracic back pain Chronicity: acute Back pain laterality: bilateral Qualified Codes: M54.6 - Pain in thoracic spine Fall Encounter type: initial encounter Qualified Codes: W19.XXXA - Unspecified fall, initial encounter
== END 2018-03-05 19:55 | disposition home or self-care (01) ==
LOC: C.EDB 18:02
DX: M23.91 Unspecified internal derangement of right knee (principal); M54.6 Pain in thoracic spine; T14.8XXA Other injury of unspecified body region, initial encounter; W10.9XXA Fall (on) (from) unspecified stairs and steps, initial encounter; G89.29 Other chronic pain; I10 Essential (primary) hypertension; N40.0 Benign prostatic hyperplasia without lower urinary tract symptoms; K21.9 Gastro-esophageal reflux disease without esophagitis; E78.5 Hyperlipidemia, unspecified; Z86.73 Personal history of transient ischemic attack (TIA), and cerebral infarction without residual deficits; K58.9 Irritable bowel syndrome, unspecified; E23.0 Hypopituitarism; Z98.1 Arthrodesis status; Z79.01 Long term (current) use of anticoagulants; Z79.899 Other long term (current) drug therapy; Z82.49 Family history of ischemic heart disease and other diseases of the circulatory system

== ENCOUNTER → 2018-05-08 | Outpatient (CLI) | payer OTHER, BC ==
[~2018-05-08] MED LIST changes: -AMLO-110 PO; -ATEN-173 PO; -CLOB1OIN2 TOP; -CLOP1TAB15 PO; -GABA-1220 PO; +MOME6000; -MOME6000 NAE; +NF34 TOP; +NRN600 PO; +NRV/5 PO; -OXYC-106 PO; +OXYC-594 PO; +PANT40TA2 PO; +PLV75 PO; +PRD/25 PO; +PRED-301 PO; -PRT40 PO; +SENN-109 PO; -SENN-61 PO; +TEST1INJ2 IM; -TIZA4CAP PO; +TNR25 PO; +ZNF/4 PO
[2018-05-08 09:38] LABS: HEMATOCRIT 47.6 % (42-52); HEMOGLOBIN 15.5 g/dL (14.0-18.0)
== END | disposition home or self-care (01) ==
LOC: C.LAB 06:50
PROVIDERS: ATTEND Internal Medicine Endocrinology, Diabetes & Metabolism
DX: E23.0 Hypopituitarism (principal)

== ENCOUNTER 2018-06-04 13:24 | Emergency (ER) | payer OTHER, BC ==
[~2018-06-04] VITALS: Ht 175.3 cm; Wt 81.6 kg
[2018-06-04 13:28] VITALS: BP 118/69; PULSE 82; TEMP 36.9; O2SAT 98; Ht 175.3 cm; Wt 81.6 kg
[2018-06-04] MEDS ORDERED: KETOROLAC TROMETHAMINE 60 MG/2 ML VIAL IM STA (14:41)
[2018-06-04] MEDS ORDERED: ONDANSETRON 4MG OD TAB PO STA (14:41)
[2018-06-04] MEDS ORDERED: DIAZEPAM 5MG TAB PO STA (14:41)
[2018-06-04] MEDS ORDERED: DEXAMETHASONE SOD INJ 4 MG/ML VIAL IM STA (14:51)
--- NOTE | 2018-06-04 15:34 | EMERGENCY ROOM VISIT NOTE ---
ED Visit Note First contact with patient: 14:27 CHIEF COMPLAINT: Neck pain HISTORY OF PRESENT ILLNESS: This 62-year-old male patient with history of chronic neck pain presents to the emergency department by private vehicle complaining of pain in the neck that started a few days ago and got worse since yesterday. The patient rates the pain as aching and throbbing and 7/10. The patient has taken his prescribed morphine and Percocet for the pain without much relief. He has been using ice which he states helps. The patient does have a history of previous neck problems, and had surgery on the neck in the late 90s, he states he has had chronic neck pain since he was 20 years old. Patient denies any injury or activities to explain his neck pain, he states that "I just get flareups of my neck pain sometimes and I usually have to come to the ER to get them taken care of." The patient provided me with a list of the medications that usually work for his neck pain, including Dilaudid, Toradol , Decadron, and Zofran. The patient does not have pain of the arms and shoulders. The patient denies numbness and tingling. The patient denies chest pain or shortness of breath. There was no head injury and no loss of consciousness. The patient denies headache, blurred vision, abdominal pain, nausea, or vomiting. The patient denies change in personality. REVIEW OF SYSTEMS: A complete 10 point review of systems was reviewed with the patient with pertinent positives and negatives as per history of present illness. All else were negative. ALLERGIES: No known allergies. MEDICATIONS: Reviewed in chart, see below. PMH: Reviewed in the chart, see problem list below peer SOCIAL HISTORY: Lives at home. He denies tobacco use. PHYSICAL EXAM: VITALS: Vitals are noted on the nurse's note and reviewed by myself. Vital signs stable. GENERAL: Pleasant and cooperative, in no acute distress, resting calmly in the stretcher. Non-diaphoretic, well-developed well-nourished. SKIN : Capillary reflex less than 2 seconds. HEENT: Normocephalic. PERRLA. EOMI. Nares patent. Mucous membranes moist. Neck is supple without nuchal rigidity. Cervical spine is not tender to palpation. The patient has significant tenderness of the paraspinal muscles on the right. There is visible muscle spasm on the right as well. There is no lymphadenopathy. MUSCULOSKELETAL: The patient has full range of motion of the bilateral arms. Strength 5/5 of the bilateral upper extremities. The patient has tenderness with rotation of the neck, but is able to fully flex and extend the neck without any difficulty. NEURO: Patient was alert and oriented to person place and time. Normal sensation to light and sharp touch. No focal neurologic deficits. EMERGENCY DEPARTMENT COURSE: I examined the patient. Differential diagnosis includes muscular sprain/strain, muscle spasm, cervical radiculopathy, degenerative disc disease, vertebral fracture/subluxation, chronic pain exacerbation, among others. Patient has full range of motion of his neck, his neurologic exam is fully normal and he is neurovascularly intact in both upper extremities with normal strength bilaterally. There is tenderness to palpation of the right paraspinous neck muscles and muscle spasm noted. There was no trauma or injury to indicate imaging at this time. Review of the patient's chart was performed, noting several visits to the ED in the past year for treatment of his chronic neck pain, during which times he has received IM Dilaudid. Given the fact that the patient is followed by pain management and is already on significant narcotics, I do not feel that Dilaudid is an appropriate treatment for this patient's muscle spasms. The patient was treated with IM Toradol and IM Decadron, and p.o. Valium for muscle relaxant. Patient was also given ODT Zofran per his request. Patient was reassessed after treatments, he reports his pain is much improved and he feels much better. Patient was encouraged to follow closely with his PCP and pain management for ongoing treatment of his chronic pain. Patient was also given strict return precautions should his symptoms worsen, he verbalized understanding. Patient was discharged home in stable condition and laboratory. 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 (13) Spondylosis, cervical Status: Chronic (14) Tonsillectomy Status: Resolved Surgical Problems: (1) H/O elbow surgery Status: Chronic (2) S/P Achilles tendon repair Status: Chronic (3) S/P cervical spinal fusion Permanent Comment: 1999 Status: Chronic (4) S/P nasal septoplasty Status: Chronic (5) S/p removal of turbinate bones Status: Chronic (6) S/P shoulder surgery Status: Chronic (7) S/P tonsillectomy and adenoidectomy Status: Chronic (8) S/P UPPP (uvulopalatopharyngoplasty) Status: Chronic (9) Status post transsphenoidal pituitary resection Permanent Comment: 04/11/17 at [facility] [place] Status: Chronic Current/Historical Medications Scheduled Amitriptyline Hcl (Elavil), 75 MG PO HS Amlodipine Besylate (Amlodipine Besylate), 5 MG PO QAM Atenolol (Atenolol), 25 MG PO BID Atorvastatin (Lipitor), 40 MG PO DAILY Clopidogrel Bisulfate (Clopidogrel), 75 MG PO DAILY Diphenhydramine-Acetaminophen (Excedrin Pm), 2 TABS PO HS Gabapentin (Gabapentin), 900 MG PO TID Hydrocortisone (Cortef), 7.5 MG PO DAILY Lactulose (Chronulac), 10 GM PO DAILY Levothyroxine Sodium (Levothyroxine Sodium), 1 TAB PO DAILY Mometasone Furoate (Nasal) (Mometasone Furoate), 2 SPRAY NA BID Morphine Sulfate (Morphine Sulfate Er), 30 MG PO BID Multiple Vitamins W/ Minerals (Centrum Silver Adult 50+), 1 TAB PO DAILY Pantoprazole (Pantoprazole Sodium), 40 MG PO BID Prednisone (Prednisone), 2.5 MG PO DAILY Prednisone (Prednisone), 5 MG PO DAILY Sennosides (Cvs Senna), 8.6 MG PO BID Testosterone Cypionate (Testosterone Cypionate), 0.75 ML IM Q2WEEK Scheduled PRN Tlluuqa-Osjhrvnlxxusr-Fhxgtypz (Excedrin Extra Strength), 2 TABS PO BID PRN for Headache or Pain Clobetasol Propionate (Clobetasol Propionate), 1 APPLN TOP BID PRN for SKIN IMPAIRMENT Dicyclomine Hcl (Dicyclomine Hcl), 10 MG PO TID PRN for Abdominal Pain Oxycodone/Acetaminophen 10MG/325MG (Percocet 10MG/325MG), 1 TAB PO Q4H PRN for Pain Promethazine HCl (Promethazine HCl), 25 MG PO Q6H PRN for Nausea Tizanidine (Tizanidine HCl), 8 MG PO TID PRN for Muscle Spasm Allergies Coded Allergies: No Known Allergies (Unverified , 03/02/18) Vital Signs Date Time Temp Pulse Resp B/P (MAP) Pulse Ox O2 Delivery O2 Flow Rate FiO2 06/04/18 13:28 36.9 82 18 118/69 98 Room Air Medications Administered Medications (Trade) Dose Ordered Sig/Bruce Route Start Time Stop Time Status Last Admin Dose Admin Ketorolac Tromethamine (Toradol Inj) 60 mg NOW STAT IM 06/04/18 14:41 06/04/18 14:42 DC 06/04/18 15:17 60 MG Ondansetron HCl (Zofran Odt) 4 mg NOW STAT PO 06/04/18 14:41 06/04/18 14:42 DC 06/04/18 15:16 4 MG Diazepam (Valium Tab) 10 mg NOW STAT PO 06/04/18 14:41 06/04/18 14:42 DC 06/04/18 15:16 10 MG Dexamethasone Sodium Phosphate (Decadron Inj) 10 mg NOW STAT IM 06/04/18 14:51 06/04/18 14:52 DC 06/04/18 15:17 10 MG Departure Information Impression Primary Impression: Neck pain, chronic Dispostion Home / Self-Care Condition GOOD Referrals Johnathan Rain III, M.D. (PCP) Patient Instructions ED Neck Pain No Trauma, My [facility] Additional Instructions You have been treated in the Emergency Department for Neck Pain. You have received medicine in the emergency department which impairs your ability to operate a vehicle. It is illegal for you to drive after receiving these medicines. Continue your prescribed pain medication and muscle relaxers as directed. For additional pain control, you can use the following [id number] medicines (if >12 yo): - Regular strength (325mg/tab) Tylenol (acetaminophen) 2 tabs every 4-6 hours as needed. Do not exceed 10 tablets in a 24 hour period. Avoid taking more than 3000 mg of Tylenol per day. This includes any other sources of acetaminophen you may take on a regular basis. - Regular strength (200 mg/tab) Advil (ibuprofen) 3 tabs every 6-8 hours as needed. Do not exceed a dose of 2400 mg per day. If this is an acute injury, ice can be applied to the area of pain for the first 3 days to help decrease pain and inflammation. After the first 3 days, a heating pad can be used over the area for continued soothing relief. You should schedule a follow-up appointment in 2-3 days with your Primary Care Provider for further evaluation and treatment of your neck pain. You will need to follow-up with pain management for any changes to your pain medications at home. You may benefit from physical therapy if your pain does not improve. Return to the Emergency Department if your current symptoms worsen or if you develop any of the following symptoms: Severe worsening pain, severe headaches, loss of feeling or movement in the arms or legs, facial droop, slurred speech, weakness on one side of the body, or any other worsening of your current symptoms. Work Instructions Return To Work: 2 days
[2018-06-04] MEDS ORDERED: LEVO75TA5 PO (16:07)
[2018-06-04] MEDS ORDERED: LACT10SO53 PO (16:07)
[2018-06-04] MEDS ORDERED: HYDR5TAB57 PO (16:07)
[2018-06-04] MEDS ORDERED: ATOR-24 PO (16:07)
== END 2018-06-04 16:42 | disposition home or self-care (01) ==
LOC: C.EDB 13:25 → C.EDD 16:42
DX: M54.2 Cervicalgia (principal); G89.29 Other chronic pain; Z79.899 Other long term (current) drug therapy; I10 Essential (primary) hypertension; N40.0 Benign prostatic hyperplasia without lower urinary tract symptoms; K21.9 Gastro-esophageal reflux disease without esophagitis; Z86.73 Personal history of transient ischemic attack (TIA), and cerebral infarction without residual deficits; E78.5 Hyperlipidemia, unspecified; K58.9 Irritable bowel syndrome, unspecified; E23.0 Hypopituitarism; D35.2 Benign neoplasm of pituitary gland; Z98.1 Arthrodesis status

== ENCOUNTER 2018-06-09 19:59 | Emergency (ER) | payer OTHER, BC ==
[~2018-06-09] VITALS: Ht 175.3 cm; Wt 81.4 kg
[~2018-06-09 19:59] MED LIST changes: -AMT24 PO; +ATOR-24 PO; -ATOR-26 PO; -CLC100X PO; -HYDR10TA52 PO; +HYDR5TAB57 PO; +LACT10SO53 PO; +LEVO75TA5 PO; -LEVO88TA3 PO; -POLY335019 PO
[2018-06-09 20:09] VITALS: TEMP 36.8; Ht 175.3 cm; Wt 81.4 kg
[2018-06-09] MEDS ORDERED: DEXAMETHASONE SOD INJ 4 MG/ML VIAL IM STA (20:26)
[2018-06-09] MEDS ORDERED: ONDANSETRON 4MG OD TAB PO STA (20:26)
[2018-06-09] MEDS ORDERED: DIAZEPAM 5MG TAB PO ONE (20:30)
[2018-06-09] MEDS ORDERED: KETOROLAC TROMETHAMINE 60 MG/2 ML VIAL IM ONE (20:30)
[2018-06-09] MEDS ORDERED: HYDROmorphone INJ 1 MG/ML SYR IM ONE (20:30)
--- NOTE | 2018-06-09 20:38 | EMERGENCY ROOM VISIT NOTE ---
History First contact with patient: 20:14 Chief Complaint: NECK PAIN Stated Complaint: NECK/L SHOULDER PAIN History of Present Illness The patient is a 62 year old male who presents to the Emergency Room with complaints of acute on chronic neck pain in the left side of his neck. The patient has a history of chronic pain. He tried a few Percocet at home with minimal relief of the pain. He denies any numbness, tingling or weakness in his extremities. No recent illnesses. No fever or chills. He denies any pain into his chest or difficulty breathing. He is followed by pain management. He is prescribed narcotics by his primary care physician. He thinks that maybe he strained his neck while he was trying to have a bowel movement today. Review of Systems 10 system review performed and negative unless noted in HPI or below Past Medical/Surgical History Medical Problems: (1) Abdominal pain (2) Benign hypertension (3) BPH (benign prostatic hyperplasia) (4) Cervical post-laminectomy syndrome (5) Chronic neck pain (6) Deviated nasal septum (7) Facet arthropathy, cervical (8) GERD (gastroesophageal reflux disease) (9) History of TIA (transient ischemic attack) (10) Hyperlipidemia (11) IBS (12) Panhypopituitarism (13) Pituitary adenoma (14) Spondylosis, cervical (15) Tonsillectomy Surgical Problems: (1) H/O elbow surgery (2) S/P Achilles tendon repair (3) S/P cervical spinal fusion (4) S/P nasal septoplasty (5) S/p removal of turbinate bones (6) S/P shoulder surgery (7) S/P tonsillectomy and adenoidectomy (8) S/P UPPP (uvulopalatopharyngoplasty) (9) Status post transsphenoidal pituitary resection Family History Hypertension FATHER MOTHER Social History Smoking Status: Never Smoker Alcohol Use: none Drug Use: none Marital Status: single Housing Status: lives alone Occupation Status: disabled Current/Historical Medications Scheduled Amitriptyline Hcl (Elavil), 75 MG PO HS Amlodipine Besylate (Amlodipine Besylate), 5 MG PO QAM Atenolol (Atenolol), 25 MG PO BID Atorvastatin (Lipitor), 40 MG PO DAILY Clopidogrel Bisulfate (Clopidogrel), 75 MG PO DAILY Diphenhydramine-Acetaminophen (Excedrin Pm), 2 TABS PO HS Gabapentin (Gabapentin), 900 MG PO TID Hydrocortisone (Cortef), 7.5 MG PO DAILY Lactulose (Chronulac), 10 GM PO DAILY Levothyroxine Sodium (Levothyroxine Sodium), 1 TAB PO DAILY Mometasone Furoate (Nasal) (Mometasone Furoate), 2 SPRAY NA BID Morphine Sulfate (Morphine Sulfate Er), 30 MG PO BID Multiple Vitamins W/ Minerals (Centrum Silver Adult 50+), 1 TAB PO DAILY Pantoprazole (Pantoprazole Sodium), 40 MG PO BID Prednisone (Prednisone), 2.5 MG PO DAILY Prednisone (Prednisone), 5 MG PO DAILY Sennosides (Cvs Senna), 8.6 MG PO BID Testosterone Cypionate (Testosterone Cypionate), 0.75 ML IM Q2WEEK Scheduled PRN Ipleotc-Jvrjlyiwrhqxm-Zqyhpbml (Excedrin Extra Strength), 2 TABS PO BID PRN for Headache or Pain Clobetasol Propionate (Clobetasol Propionate), 1 APPLN TOP BID PRN for SKIN IMPAIRMENT Dicyclomine Hcl (Dicyclomine Hcl), 10 MG PO TID PRN for Abdominal Pain Oxycodone/Acetaminophen 10MG/325MG (Percocet 10MG/325MG), 1 TAB PO Q4H PRN for Pain Promethazine HCl (Promethazine HCl), 25 MG PO Q6H PRN for Nausea Tizanidine (Tizanidine HCl), 8 MG PO TID PRN for Muscle Spasm Physical Exam Vital Signs Date Time Temp Pulse Resp B/P (MAP) Pulse Ox O2 Delivery O2 Flow Rate FiO2 06/09/18 21:22 79 18 129/72 98 06/09/18 20:09 36.8 91 18 138/79 98 Room Air Physical Exam GENERAL: 62-year-old male, in mild discomfort,, in no acute distress, nondiaphoretic, well-developed well-nourished. SKIN: The skin was without rashes, erythema, edema, or bruising.. HEAD: Normocephalic atraumatic. EYES: . Conjunctivae without injection, sclerae without icterus. Extraocular movements intact. NECK: Supple without nuchal rigidity. No lymphadenopathy. Cervical spine is nontender. Spasm noted in the left upper trapezius muscle HEART: Regular rate and rhythm without murmurs gallops or rubs. LUNGS: Clear to auscultation bilaterally without wheezes, rales or rhonchi. No accessory muscle use. MUSCULOSKELETAL: No muscle atrophy, erythema, or edema noted. Full range of motion in all extremities. No tenderness to palpation. Normal gait. Strength 5/5 throughout. Radial pulse +2 bilaterally. NEURO: Patient was alert and oriented to person place and time. Normal sensation to touch. No focal neurological deficits. Medical Decision & Procedures Medications Administered Medications (Trade) Dose Ordered Sig/Bruce Route Start Time Stop Time Status Last Admin Dose Admin Hydromorphone HCl (Dilaudid Inj) 1 mg ONE ONCE IM 06/09/18 20:30 06/09/18 20:31 DC 06/09/18 20:44 1 MG Ketorolac Tromethamine (Toradol Inj) 60 mg ONE ONCE IM 06/09/18 20:30 06/09/18 20:31 DC 06/09/18 20:46 60 MG Ondansetron HCl (Zofran Odt) 4 mg NOW STAT PO 06/09/18 20:26 06/09/18 20:27 DC 06/09/18 20:44 4 MG Dexamethasone Sodium Phosphate (Decadron Inj) 10 mg NOW STAT IM 06/09/18 20:26 06/09/18 20:27 DC 06/09/18 20:46 10 MG Diazepam (Valium Tab) 10 mg NOW ONCE PO 06/09/18 20:30 06/09/18 20:31 DC 06/09/18 20:43 10 MG ED Course The patient was seen and examined He was medicated with Dilaudid 1 mg, Toradol 60 mg and Decadron 10 mg IM. He was given Zofran 4 mg and Valium 10 mg by mouth The patient was also seen and examined by my supervising physician who is in agreement with my plan Upon reevaluation, the patient was feeling better. He was comfortable being discharged home. Discharge instructions were reviewed, and he was discharged in good condition Medical Decision Differential diagnosis: Acute on chronic pain, narcotic dependence, muscle spasm spine fracture, ligamentous injury, subluxation, spondylolisthesis, spondylosis, herniated disc, contusion, among others were entertained This patient is a 62-year-old male presents to the emergency department complaining of acute on chronic left-sided neck pain that started earlier today when he was trying to have a bowel movement. He did not have any injuries. He was neurovascularly intact. I do not find imaging necessary. The patient was medicated in the emergency department as noted above with good pain relief. I believe he is stable to be discharged home with close follow-up from his primary care physician in addition to pain management. He was comfortable with this plan. He was cautioned for signs of which to return to the emergency department. This chart was completed in part utilizing [employer] Speech Voice Recognition software. Attempts were made to minimize the grammatical errors, random word insertions, pronoun errors and incomplete sentences. Any formal questions or concerns about the content, text or information contained within the body of this dictation should be directly addressed to the provider for clarification. [place] Drug Monitoring Program Search Results: patient reviewed within database Medication Reconcilliation Current Medication List: was personally reviewed by me Blood Pressure Screening Patient's blood pressure: Elevated blood pressure Blood pressure disposition: Did not require urgent referral Impression Primary Impression: Chronic neck pain Departure Information Dispostion Home / Self-Care Condition GOOD Referrals Johnathan Rain III, M.D. (PCP) Patient Instructions My [facility] Additional Instructions Please continue current medications as prescribed. Alternating ice with moist heat may help the pain. Please follow-up with your primary care physician for further pain management. Please keep your appointment as scheduled for your trigger point injections. Do not hesitate to return to the emergency department with any new, worsening or concerning symptoms; especially, fever, chest pain or difficulty breathing It was a pleasure participating in your care today
--- NOTE | 2018-06-09 21:12 | EMERGENCY ROOM VISIT NOTE ---
ED Visit Note First contact with patient: 20:14 The patient was seen and examined with Mervat Jade PA-C. I agree with the history, physical and findings. Please see the note for disposition and details.
[2018-06-09 21:22] VITALS: BP 129/72; PULSE 79; O2SAT 98
== END 2018-06-09 21:22 | disposition home or self-care (01) ==
LOC: C.EDB 20:00 → C.EDD 21:22
DX: M54.2 Cervicalgia (principal); G89.29 Other chronic pain; I10 Essential (primary) hypertension; N40.0 Benign prostatic hyperplasia without lower urinary tract symptoms; K21.9 Gastro-esophageal reflux disease without esophagitis; Z86.73 Personal history of transient ischemic attack (TIA), and cerebral infarction without residual deficits; E78.5 Hyperlipidemia, unspecified; K58.9 Irritable bowel syndrome, unspecified; Z98.1 Arthrodesis status; Z82.49 Family history of ischemic heart disease and other diseases of the circulatory system; Z79.899 Other long term (current) drug therapy

== ENCOUNTER 2019-04-06 06:54 | Inpatient (IN) ==
[2019-04-06] MEDS ORDERED: SODIUM CHLORIDE 0.9% 1000ML 1,000 ML IV ONE (07:13)
[2019-04-06] MEDS ORDERED: ONDANSETRON INJ 2 MG/ML 2 ML VIAL IV STA (07:36)
--- NOTE | 2019-04-06 07:38 | XRay Report ---
XR chest 1V portable CLINICAL HISTORY: weakness dyspnea COMPARISON STUDY: 03/31/2019 FINDINGS: The bones soft tissues and hemidiaphragms are normal. The cardiomediastinal silhouette is n ormal. The lungs are clear. The pulmonary vasculature is normal. IMPRESSION: Negative chest. The above report was generated using voice recognition software. It may contain grammatical, syntax or spelling errors. Electronically signed by: Rich Pedro M.D. 04/06/2019 7:36 AM
[2019-04-06 07:43] LABS: Basophils # (auto) 0.02 K/uL (0-0.2); Basophils % (auto) 0.2 %; Hematocrit (blood only) 44.1 % (42-52); Hemoglobin 14.5 g/dL (14.0-18.0); Immature Granulocytes # (auto) 0.07 K/uL (0.00-0.02); Immature Granulocytes % (auto) 0.7 %; Lymphocytes # (auto) 1.15 K/uL (1.2-3.4); Lymphocytes % (auto) 11.5 %; Mean Corpuscular Hgb Conc 32.9 g/dL (32-36); Mean Corpuscular Volume 82.1 fL (80-100); Mean Platelet Volume 8.7 fL (7.4-10.4); Monocytes # (auto) 0.81 K/uL (0.11-0.59); Monocytes % (auto) 8.1 %; Neutrophils # (auto) 7.61 K/uL (1.4-6.5); Neutrophils % (auto) 76.5 %; Platelet Count 336 K/uL (130-400); RDW Coefficient of Variation 15.9 % (11.5-14.5); RDW Standard Deviation 47.9 fL (36.4-46.3); Red Blood Count 5.37 M/uL (4.7-6.1); White Blood Count 9.96 K/uL (4.8-10.8)
[2019-04-06 07:45] LABS: iSTAT Creatinine 1.3 mg/dl (0.6-1.3); iSTAT Ionized Calcium 1.08 mmol/l (1.12-1.32); iSTAT Potassium 3.6 mEq/L (3.3-5.0)
[2019-04-06 07:53] LABS: Alanine Aminotransferase 44 U/L (12-78); Albumin Level 3.1 gm/dl (3.4-5.0); Aspartate Aminotransferase 41 U/L (15-37); BUN Creatinine Ratio 18.1 (10-20); Blood Urea Nitrogen 21 mg/dl (7-18); Calcium 9.2 mg/dl (8.5-10.1); Carbon Dioxide 23 mmol/L (21-32); Chloride 110 mmol/L (98-107); Creatinine Clr Calc Pharmacy 65.2 ml/min; Est GFR (African American) 77.2; Est GFR (Non-African American) 66.7; Glucose 97 mg/dl (70-99); Potassium 3.7 mmol/L (3.5-5.1); Sodium 143 mmol/L (136-145)
[2019-04-06 07:54] LABS: Appearance Urine Turbid (Clear); Bacteria Urine Automated Negative (Negative); Bilirubin Urine Negative (Negative); Blood Urine Negative (Negative); Color Urine Dark Yellow; Glucose Urine UA Negative (Negative); Ketones Urine Negative (Negative); Leukocyte Esterase Urine Negative (Negative); Nitrite Urine Negative (Negative); Protein Urine Negative (Negative); Specific Gravity Urine 1.023 (1.000-1.030); Urobilinogen Urine Negative (Negative); pH Urine 8.5 (4.5-7.5)
[2019-04-06 08:04] LABS: Albumin Globulin Ratio 0.8 (0.9-2); Alkaline Phosphatase 382 U/L (45-117); Bilirubin,Total 0.4 mg/dl (0.2-1); Creatine Kinase 30 U/L (39-308); Globulin 4.1 gm/dl (2.5-4.0); Total Protein 7.2 gm/dl (6.4-8.2); Troponin I < 0.015 ng/ml (0-0.045)
[2019-04-06 08:29] LABS: Lyme Ab IgG w/WB Rflx Negative (Negative); Lyme Ab IgM w/WB Rflx Negative (Negative)
[2019-04-06] MEDS ORDERED: OPTIRAY 320 125ml IV PRN (09:03)
[2019-04-06 09:04] LABS: Amphetamines+Metham, Urine Neg (Neg); Barbiturates, Urine Neg (Neg); Benzodiazepine, Urine Neg (Neg); Cocaine, Urine Neg (Neg); MDMA (Ecstacy), Urine Neg (Neg); Methadone, Urine Neg (Neg); Opiate, Urine Pos (Neg); Phencyclidine, Urine Neg (Neg)
--- NOTE | 2019-04-06 09:16 | CT Scan Report ---
CT angio chest PE protocol CT DOSE: 676.14 mGy.cm HISTORY: 63 years-old Male with PE. Acute cough TECHNIQUE: Multiple CTA images of the chest were obtained after the intravenous administration of 118 ml Optiray 320. Coronal and sagittal MIPS were obtained from the axial data set and were submitted for review. All measurements were obtained according to NASCET criteria. A dose lowering technique w as utilized adhering to the principles of ALARA. COMPARISON: CT abdomen and pelvis of same day. FINDINGS: CTA: The heart is normal in size without pericardial effusion. No thoracic aortic aneurysm or dissection. There is patency of the imaged great vessels. Moderate mixed plaque formation of the descending thora cic aorta. The pulmonary arterial tree is suboptimally opacified. Evaluation of the segmental and sub segmental branches is also limited secondary to respiratory motion. No central pulmonary emboli ident ified. CT CHEST: No focal thyroid nodule. No adenopathy by CT size criteria. No pneumothorax or pleural effusion. Patc hy groundglass and consolidative opacities of the upper lobes, right middle lobe and to a lesser exte nt within the lower lobes. Evaluation of the lung parenchyma is limited secondary to respiratory grover on artifact. 5 mm fissural lymph node on the left, image 157 series 4. 4 mm solid nodule of the infer ior segment lingula. 5 mm solid nodule of the left lower lobe, image 86 series 4. 5 mm solid nodule o f the right lower lobe, image 134 series 4. Central airways appear patent. No acute process of the imaged upper abdomen. Gynecomastia. Fusion hardware of the cervical spine. De generative changes of the shoulders and spine. The bones appear intact. IMPRESSION: 1. Suboptimal evaluation of the pulmonary arterial tree secondary to respiratory motion. No central p ulmonary emboli identified. 2. Patchy bibasilar groundglass and consolidative opacities within an upper lung zone prominent distr ibution is suggestive of multifocal pneumonia. 3. There are a few scattered solid pulmonary nodules noted bilaterally measuring up to 5 mm which may also be on an infectious or inflammatory basis. 4. No adenopathy or pleural effusion. Please refer to below summary of Fleischner criteria recommendations for follow-up of incidental CT n odules (Carrie Corbett, Guidelines for management of small pulmonary nodules detected on CT scans: A sta tement from the Fleischner Society, Radiology 237: [id number].) SOLID NODULES Multiple nodules size: <6 mm * Low risk patients: no routine follow-up * high risk patients: optional CT at 12 months Note: newly detected indeterminate nodule in persons 35 years of age or older. * Low risk patients: minimal or absent history of smoking and/or other known risk factors * high risk patients: history of smoking or of other known risk factors (e.g. first degree relative with lung cancer, or exposure to asbestos, radon, uranium) * if a nodule up to 8 mm is partly solid or is ground glass further follow-up is required after 24 m onths to exclude possible slow growing adenocarcinoma (YULY) The above report was generated using voice recognition software. It may contain grammatical, syntax o r spelling errors. Electronically signed by: Mason Diaz M.D. 04/06/2019 9:14 AM
--- NOTE | 2019-04-06 09:20 | CT Scan Report ---
CT abd pelvis IV con only CLINICAL HISTORY: 63 years-old Male presenting with Pt c/o abd pain. TECHNIQUE: Multidetector CT of the abdomen and pelvis was performed after the administration of intra venous contrast. IV contrast: 118 mL of Optiray 320. One or more dose lowering techniques were used c onsistent with the principles of ALARA (as low as reasonably achievable), including automatic exposur e control, mA or kV adjustment to individual patient size, and/or use of iterative reconstruction. COMPARISON: 08/28/2017. CT DOSE (mGy.cm): The estimated cumulative dose is 676.14. FINDINGS: Hereditary Cancer Program Coordinator topogram: Unremarkable. Lung bases: Normal heart size. No pericardial or pleural effusion. Patchy groundglass infiltrate in a peribronchovascular distribution in the right middle lobe. Additional more subtle centrilobular grou ndglass opacities in the right lower lobe. Liver: Normal morphology. Subcentimeter hypodense well-defined lesions likely hepatic cysts or hamart omas. Patent hepatic vasculature. Biliary: No intrahepatic or extrahepatic biliary ductal dilatation. Gallbladder is likely distended o n a physiologic basis. No evidence of tension. No gallbladder wall thickening. Pancreas: Moderate parenchymal atrophy. Spleen: Normal. Adrenal glands: Normal. Kidneys and ureters: Few subcentimeter cysts suggested. Evaluation for nephrolithiasis is limited giv en the excretion of contrast in the urinary collecting systems. No hydronephrosis. Ureters nondistend ed. Bladder: Incompletely evaluated secondary to underdistention. Pelvic organs: Prostate enlargement likely secondary to benign prostatic hyperplasia. Bowel: Normal appendix. No bowel obstruction. Peritoneal cavity: No free fluid or intraperitoneal gas. Lymph nodes: No enlarged lymph nodes in the abdomen or pelvis. Vasculature: Atherosclerosis of the normal caliber abdominal aorta. IVC patent. Abdominal wall: Normal. Musculoskeletal: Degenerative changes of the spine. IMPRESSION: 1. No acute intra-abdominal pathology. 2. Suspected physiologic gallbladder distention. No convincing evidence of cholecystitis. 3. Prostatomegaly. 4. Patchy infiltrates in the right middle and lower lobes concerning for infectious bronchiolitis. Electronically signed by: Jorge Hart M.D. 04/06/2019 9:19 AM
[2019-04-06] MEDS ORDERED: HYDROmorphone INJ 1 MG/ML SYRINGE IV PRN (09:34)
[2019-04-06] MEDS ORDERED: KETOROLAC 30 MG/ML VIAL IV STA (09:34)
[2019-04-06] MEDS ORDERED: METOCLOPRAMIDE HCL INJ 5 MG/ML 2 ML VIAL IV STA (09:34)
[2019-04-06] MEDS ORDERED: PIPERACILLIN/TAZOBACTAM 4.5 GM/120 ML BAG IV ONE (09:39)
[2019-04-06] MEDS ORDERED: LEVOFLOXACIN/D5W 750 MG/150 ML BAG IV STA (09:39)
[2019-04-06] MEDS ORDERED: PIPERACILL/TAZOBAC CONSULT ACTIVE PRN ×2 (09:39→11:54)
--- NOTE | 2019-04-06 11:38 | History & Physical Report ---
Date of Service April 06, 2019 Assessment & Plan (1) Multifocal pneumonia: This is a 63yo M with a PMH of chronic neck pain on narcotics, pituitary tumor (s/p excision in March 2017), HTN, HLD, acquired hypothyroidism, history of TIAs, opioid induced constipation and other medical problems listed below who presents with cough and generalized weakness x 2 weeks and was found to have multifocal PNA. -No leukocytosis, non-toxic appearance -Generalized weakness, 10 pound weight loss, dry cough and nausea. Completed half of 7d course of Augmentin given on 03/31 for URI -Chest CTA shows patchy bibasilar ground glass and consolidative opacities within an upper lung zone prominent distribution is suggestive of multifocal pneumonia -Given dose of Zosyn and Levaquin in ED. Blood cultures pending -Will continue empiric abx with Unasyn and doxy to cover for possible aspiration and anaplasma -Lyme, anaplasma serology pending. Peripheral smear pending -Duonebs Q4H PRN for SOB/wheezing (2) Pulmonary nodules: Chest CTA with a few scattered solid pulmonary nodules noted bilaterally measuring up to 5 mm which may also be on an infectious or inflammatory basis -Due to setting of weight loss and generalized weakness, cannot exclude malignancy -Routine pulm consult for possible bronchoscopy (3) Nausea and vomiting: In setting of PNA, also possible opioid withdrawal. Has not been taking morphine ER 30mg BID or Percocet 10mg since yesterday morning, has decreased overall narcotics for past few days -Given Zofran and Reglan in ED -Continue with IV Zofran PRN (monitoring qtc), will add Phenergan PA PRN -Gentle IV fluids (4) Chronic neck pain: Has ongoing chronic neck problems with h/o cervical fusion surgery in 1999 -Follows with pain medicine. Current regimen includes: morphine 30mg twice daily, Percocet 10mg Q12H PRN, Gabapentin 400mg TID, Amitriptyline 75mg HS, Excedrin BID and HS and Zanaflex 8mg Q8H PRN -Recently started on Topamax 25mg BID for pain control, may be contributing to decreased appetite ? -Continue home regimen (5) Chronic constipation: In setting of narcotic use -Takes Docusate 100mg BID, Lactulose PRN (6) HLD (hyperlipidemia): Continue statin (7) History of TIA (transient ischemic attack): Continue plavix (8) HTN (hypertension): Normotensive -Continue amlodipine, atenolol (9) GERD (gastroesophageal reflux disease): Protonix BID (10) Status post transsphenoidal pituitary resection: H/o pituitary tumor s/p excision in March 2017 at [facility] [place] -Has been following with Dr. Chapman of [facility] endocrine -Continue Prednisone 5mg daily, receives SQ testosterone every other week in clinic (11) Chronic folliculitis: Follows with Dr. Santillan, states he has been on abx (Bactrim or Mometasone) since April 2018 -Holding home abx while receiving IV abx -Clobetasol cream DVT Ppx: SQ lovenox Code status: FULL PCP: Briseyda Dispo: Ad[facility]. Discharge planning ordered. Patient seen in collaboration with Dr. Matthews. Please see addendum. History of Present Illness Chief Complaint: Cough, generalized weakness Primary Care Provider: Johnathan Rain MD This is a 63yo M with a PMH of chronic neck pain on narcotics, pituitary tumor (s/p excision in March 2017), HTN, HLD, acquired hypothyroidism, history of TIAs, opioid induced constipation and other medical problems listed below who presents with cough and generalized weakness x 2 weeks. Patient states that he developed a persistent dry cough a few weeks ago as well as subjective fever and chills. Has had decreased appetite and a reported 10 lb weight loss in past 2 weeks. Denies any shortness of breath, wheezing or hemoptysis. Was seen in the ED on March 31 for generalized weakness and URI symptoms and was started on a 7-day course of Augmentin. Feels generally weak today, with chills and lower back spasms. Has had nausea for the past few days with some associated dry heaving. Denies any lightheadedness, headache, chest pain, palpitations, vomiting, abdominal pain, dysuria or diarrhea. Has ongoing chronic neck problems for which he is on scheduled morphine 30mg twice daily, Percocet 10mg Q12H PRN, Gabapentin 400mg TID, Amitriptyline 75mg HS and Zanaflex 8mg Q8H PRN. Follows with pain management and was already recently started on Topamax 25mg BID for pain control. Did not take any of his morphine or Percocet since yesterday morning. Also with chronic constipation. Chest CTA shows patchy bibasilar ground glass and consolidative opacities within an upper lung zone prominent distribution is suggestive of multifocal pneumonia. There are a few scattered solid pulmonary nodules noted bilaterally measuring up to 5 mm which may also be on an infectious or inflammatory basis. Allergies Allergy/AdvReac Type Severity Reaction Status Date / Time No Known Allergies Allergy U Verified 04/06/19 08:26 Home Medications Home Medications Medication Instructions Recorded Confirmed Type amitriptyline 75 mg PO HS 08/16/18 04/06/19 History atenolol 25 mg PO BID 08/16/18 04/06/19 History morphine 30 mg PO BID 08/16/18 04/06/19 History oxycodone-acetaminophen [Percocet] 1 tab PO Q12 PRN 08/16/18 04/06/19 History promethazine 25 mg PO Q6H PRN 08/16/18 04/06/19 History amlodipine 10 mg PO QAM 09/12/18 04/06/19 History atorvastatin 80 mg PO QAM 09/12/18 04/06/19 History clopidogrel 75 mg PO QAM 09/12/18 04/06/19 History dicyclomine 10 mg PO TID 09/12/18 04/06/19 History lactulose 15 ml PO QPM PRN 09/12/18 04/06/19 History pantoprazole 40 mg PO BID 09/12/18 04/06/19 History tizanidine 8 mg PO Q8 PRN 09/12/18 04/06/19 History gabapentin 400 mg capsule 400 mg PO TID 09/19/18 04/06/19 History Excedrin Extra Strength 2 tab PO BID 09/21/18 04/06/19 History metformin 500 mg PO QAM 12/25/18 04/06/19 History azelastine 2 spray INTRANASAL BID 03/31/19 04/06/19 History mometasone 2 spray INTRANASAL BID 03/31/19 04/06/19 History clobetasol 1 applic TOPICAL BID 04/06/19 04/06/19 History clotrimazole [Lotrimin AF] 1 applic TOPICAL BID 04/06/19 04/06/19 History docusate sodium [Colace] 100 mg PO BID 04/06/19 04/06/19 History duloxetine 60 mg PO QAM 04/06/19 04/06/19 History ibuprofen-diphenhydramine cit 2 cap PO HS PRN 04/06/19 04/06/19 History [Ibuprofen PM] levothyroxine 112 mcg PO DAILY 04/06/19 04/06/19 History lisinopril 10 mg PO QAM 04/06/19 04/06/19 History prednisone 5 mg PO QAM 04/06/19 04/06/19 History sulfamethoxazole-trimethoprim 1 tab PO BID 04/06/19 04/06/19 History testosterone cypionate 200 mg SUBCUT UD 04/06/19 04/06/19 History topiramate 25 mg PO BID 04/06/19 04/06/19 History Past Med/Surg History Medical History History of TIA (transient ischemic attack) (Chronic) X2-->"05/2014" & 06/2017. TAKING PLAVIX. Anxiety (Chronic) BPH (benign prostatic hyperplasia) (Chronic) Chronic neck pain (Chronic) GERD (gastroesophageal reflux disease) (Chronic) Hyperlipidemia (Chronic) Hypertension (Chronic) Hypothyroidism (Chronic) Peptic ulcer disease (Chronic) H/O Surgical History Fusion of spine (Chronic) CERVICAL AREA. UNSURE OF THE LEVELS. LIMITED ROM ALL DIRECTIONS. HAS BEEN INTUBATED SINCE. H/O Achilles tendon repair (Chronic) RIGHT FOOT H/O elbow surgery (Chronic) RIGHT ELBOW BONE SPUR REMOVAL H/O shoulder surgery (Chronic) LEFT SHOULDER BONE SPUR REMOVAL H/O: pituitary tumor (Chronic) BENIGN TUMOR REMOVED History of nasal septoplasty (Chronic) History of tonsillectomy (Chronic) S/P LASIK surgery of both eyes (Chronic) S/P UPPP (uvulopalatopharyngoplasty) (Chronic) Family History Other Hypertension Social History Preferred Language: Lebanese Communication Ability: Effective Visual Impairment: No Limitations Hearing Ability: Normal Meters Superintendent Required: No Beliefs That Will Affect Care: None marital status: Single Current Living Situation: Alone Current Living Situation Comment: DOG Other Information That Helps Us Care for You: No Feels Safe at Home: Yes Safety Concerns: Feels Safe At This Time Smoking Status: Never smoker Second Hand Exposure: No Hx Alcohol Use: No Hx Substance Use: No Review of Systems Review of Systems: At least ten systems reviewed and negative except as noted in the HPI. Physical Exam Physical Exam: General Appearance: WD/WN, in acute distress, cooperative Head: normocephalic, atraumatic Eyes: normal inspection, PERRL, EOMI ENT: hearing grossly normal, pharynx normal (dry mucous membranes) Neck: supple, no JVD, no adenopathy Respiratory/Chest: lungs clear to auscultation. No wheezes, rales or rhonci. No respiratory distress or accessory muscle use Cardiovascular: tachycardic rate, rhythm, no murmur, normal peripheral pulses Abdomen/GI: normal bowel sounds, soft, non-tender to palpation Extremities/Musculoskelatal: normal inspection, no calf tenderness, normal capillary refill, no pedal edema Neurologic/Psych: alert, anxious mood/affect, oriented x 3 Skin: normal color, warm/dry Results & Data Vital Signs (Past 12 Hours) Vital Signs Temp Pulse Pulse Resp BP BP Pulse Ox 04/06/19 11:33 112 H 16 144/80 H 98 04/06/19 10:42 107 H 16 127/67 99 04/06/19 09:51 102 H 16 142/76 H 100 04/06/19 08:38 93 H 16 146/73 H 100 04/06/19 07:42 90 20 125/58 L 100 04/06/19 07:30 96 04/06/19 06:59 36.5 C 101 H 20 166/82 H 94 Laboratory Results Short CBC 04/06/19 Range/Units 07:24 WBC 9.96 (4.8-10.8) K/uL Hgb 14.5 (14.0-18.0) g/dL Hct 44.1 (42-52) % Plt Count 336 (130-400) K/uL BMP 04/06/19 07:24 Sodium 143 Potassium 3.7 Chloride 110 H Carbon Dioxide 23 BUN 21 H Creatinine 1.16 Glucose 97 Calcium 9.2 Cardiac Enzymes 04/06/19 Range/Units 07:24 Total Creatine Kinase 30 L (39-308) U/L Troponin I < 0.015 (0-0.045) ng/ml Liver Function 04/06/19 Range/Units 07:24 Total Bilirubin 0.4 (0.2-1) mg/dl AST 41 H (15-37) U/L ALT 44 (12-78) U/L Alkaline Phosphatase 382 H (45-117) U/L Albumin 3.1 L (3.4-5.0) gm/dl Urine 04/06/19 Range/Units 07:45 Urine Color Dark Yellow Urine Appearance Turbid A (Clear) Urine pH 8.5 H (4.5-7.5) Ur Specific [place] 1.023 (1.000-1.030) Urine Protein Negative (Negative) Urine Glucose (UA) Negative (Negative) Diagnostic Findings CXR: IMPRESSION: Negative chest. Chest CTA: IMPRESSION: 1. Suboptimal evaluation of the pulmonary arterial tree secondary to respiratory motion. No central pulmonary emboli identified. 2. Patchy bibasilar groundglass and consolidative opacities within an upper lung zone prominent distribution is suggestive of multifocal pneumonia. 3. There are a few scattered solid pulmonary nodules noted bilaterally measuring up to 5 mm which may also be on an infectious or inflammatory basis. 4. No adenopathy or pleural effusion. CT abd/pelvis: IMPRESSION: 1. No acute intra-abdominal pathology. 2. Suspected physiologic gallbladder distention. No convincing evidence of cholecystitis. 3. Prostatomegaly. 4. Patchy infiltrates in the right middle and lower lobes concerning for infectious bronchiolitis. Supervising Physician Co-Signing Physician Notes Attending addendum: This is a 63-year-old male with a past medical history of chronic neck pain on multiple narcotics, history of pituitary tumor status post excision in March 2017, admitted with 2 weeks history of cough generalized weakness CT chest shows multifocal pneumonia/bilateral patchy groundglass and consolidative opacity Patient denies of any sick contact Does not recall of having any tick bite Order for empiric antibiotic with doxycycline/Unasyn Order for Lyme titer Anaplasma serology/peripheral smear #2 6) occlusion Pulmonology consulted for insulin 7 incidental finding of solid pulmonary nodule/with significant weight loss CODE STATUS: Full code Please refer to further documentation by Yue Reddy PA-C for discussion of other chronic issues Genet Matthews MD
[2019-04-06] MEDS ORDERED: PIPERACILLIN/TAZOBACTAM 3.375 GM in DEXTROSE 5% 100 ML IV SCH (12:00)
[2019-04-06] MEDS ORDERED: CONSULT PHARMACY STA (12:19)
[2019-04-06] MEDS ORDERED: ACETAMINOPHEN 325 MG TAB PO PRN (12:19)
[2019-04-06] MEDS ORDERED: AMPICILLIN/SULBACTAM CONSULT ACTIVE PRN (12:33)
[2019-04-06] MEDS ORDERED: LACTULOSE SYRUP 20 GM/30 ML UDC PO PRN (12:44)
[2019-04-06] MEDS ORDERED: ONDANSETRON INJ 2 MG/ML 2 ML VIAL IV PRN (13:06)
[2019-04-06] MEDS ORDERED: SODIUM CHLORIDE 0.9% 1000ML 1,000 ML IV SCH (13:15)
[2019-04-06] MEDS ORDERED: MoRPHine SULFATE CR 15 MG TABCR PO STA (13:28)
[2019-04-06 13:31] LABS: Echinocytes 1+
[2019-04-06] MEDS ORDERED: DEXTROSE 50% 50 ML SYRINGE IV PRN (13:54)
[2019-04-06] MEDS ORDERED: GLUCOSE 10 TABS/TUBE PO PRN (13:54)
[2019-04-06] MEDS ORDERED: GLUCOSE 40% GEL 15 GM TUBE PO PRN (13:54)
[2019-04-06] MEDS ORDERED: GLUCAGON FOR INJ 1 MG VIAL SQ PRN (13:54)
[2019-04-06] MEDS ORDERED: CARBOHYDRATES FOR HYPOGLYCEMIA PO PRN (13:54)
[2019-04-06] MEDS: AMPICILLIN/SULBACTAM SOD 3,000 MG in 0.9 % SODIUM CHLORIDE 100 ML IV SCH ×2 (14:02→19:35)
[2019-04-06] MEDS ORDERED: EXCEDRIN EXTRA STRENGTH PO PRN (14:03)
[2019-04-06] MEDS: GABAPENTIN 400 MG CAP PO SCH ×2 (14:03→20:31)
[2019-04-06] MEDS: DICYCLOMINE HCL 10 MG CAP PO SCH ×2 (14:03→20:29)
[2019-04-06] MEDS: OXYCODONE/ACETAMINOPHEN 10-325 TAB PO PRN (14:04)
[2019-04-06] MEDS: AZELASTINE: ORDER AWAITING ACTION SCH ×2 (14:34→23:28)
[2019-04-06] MEDS ORDERED: predniSONE 5 MG TAB PO ONE (14:50)
[2019-04-06] MEDS ORDERED: ALBUT/IPRATROP 3MG/0.5MG NEB 3 ML VIAL NEB PRN (14:50)
--- NOTE | 2019-04-06 16:22 | Emergency Department Note ---
Entered by Rea Bains acting as a scribe for History of Present Illness General Chief complaint: Fever Stated complaint: FEVER,CHILLS Time Seen by Provider: 04/06/19 07:04 Source: patient Mode of arrival: ambulatory Limitations: no limitations History of Present Illness Provider complaint: fever Onset (ago): week(s) (a few) Location: head Pain Consistency: + other (persistent) Quality: + other (fever) Relieved By: + none Associated symptoms: + cough, + fever/chills, + loss of appetite, + malaise, + nausea/vomiting and + other (weight loss) Treatments prior to arrival: other (tylenol) The patient is a 63 year old male who presents to the Emergency Room with complaints of a persistent fever that began a few weeks ago. The patient reports that he has also been experiencing chills and that he has had a cough. He states that he feels as if he were dehydrated and explains he has had nausea as well as a loss of appetite. He notes that he has had a significant weight loss and that he has been experiencing malaise. He denies any tick bites or rashes. He denies spending much time outside but explains he does have a dog. He reports that he took a Tylenol at 4 am but that nothing has been helping. He states that he was evaluated at this hospital for the same last Tuesday and that he had a negative CT scan of his chest. Home Medications Home Medications Medication Instructions Recorded Confirmed Type amitriptyline 75 mg PO HS 08/16/18 04/06/19 History atenolol 25 mg PO BID 08/16/18 04/06/19 History morphine 30 mg PO BID 08/16/18 04/06/19 History oxycodone-acetaminophen [Percocet] 1 tab PO Q12 PRN 08/16/18 04/06/19 History promethazine 25 mg PO Q6H PRN 08/16/18 04/06/19 History amlodipine 10 mg PO QAM 09/12/18 04/06/19 History atorvastatin 80 mg PO QAM 09/12/18 04/06/19 History clopidogrel 75 mg PO QAM 09/12/18 04/06/19 History dicyclomine 10 mg PO TID 09/12/18 04/06/19 History lactulose 15 ml PO QPM PRN 09/12/18 04/06/19 History pantoprazole 40 mg PO BID 09/12/18 04/06/19 History tizanidine 8 mg PO Q8 PRN 09/12/18 04/06/19 History gabapentin 400 mg capsule 400 mg PO TID 09/19/18 04/06/19 History Excedrin Extra Strength 2 tab PO BID 09/21/18 04/06/19 History metformin 500 mg PO QAM 12/25/18 04/06/19 History azelastine 2 spray INTRANASAL BID 03/31/19 04/06/19 History mometasone 2 spray INTRANASAL BID 03/31/19 04/06/19 History clobetasol 1 applic TOPICAL BID 04/06/19 04/06/19 History clotrimazole [Lotrimin AF] 1 applic TOPICAL BID 04/06/19 04/06/19 History docusate sodium [Colace] 100 mg PO BID 04/06/19 04/06/19 History duloxetine 60 mg PO QAM 04/06/19 04/06/19 History ibuprofen-diphenhydramine cit 2 cap PO HS PRN 04/06/19 04/06/19 History [Ibuprofen PM] levothyroxine 112 mcg PO DAILY 04/06/19 04/06/19 History lisinopril 10 mg PO QAM 04/06/19 04/06/19 History prednisone 5 mg PO QAM 04/06/19 04/06/19 History sulfamethoxazole-trimethoprim 1 tab PO BID 04/06/19 04/06/19 History testosterone cypionate 200 mg SUBCUT UD 04/06/19 04/06/19 History topiramate 25 mg PO BID 04/06/19 04/06/19 History Allergies Allergy/AdvReac Type Severity Reaction Status Date / Time No Known Allergies Allergy U Verified 04/06/19 08:26 Past Med/Surg History Medical History History of TIA (transient ischemic attack) (Chronic) X2-->"05/2014" & 06/2017. TAKING PLAVIX. Anxiety (Chronic) BPH (benign prostatic hyperplasia) (Chronic) Chronic neck pain (Chronic) GERD (gastroesophageal reflux disease) (Chronic) Hyperlipidemia (Chronic) Hypertension (Chronic) Hypothyroidism (Chronic) Peptic ulcer disease (Chronic) H/O Surgical History Fusion of spine (Chronic) CERVICAL AREA. UNSURE OF THE LEVELS. LIMITED ROM ALL DIRECTIONS. HAS BEEN INTUBATED SINCE. H/O Achilles tendon repair (Chronic) RIGHT FOOT H/O elbow surgery (Chronic) RIGHT ELBOW BONE SPUR REMOVAL H/O shoulder surgery (Chronic) LEFT SHOULDER BONE SPUR REMOVAL H/O: pituitary tumor (Chronic) BENIGN TUMOR REMOVED History of nasal septoplasty (Chronic) History of tonsillectomy (Chronic) S/P LASIK surgery of both eyes (Chronic) S/P UPPP (uvulopalatopharyngoplasty) (Chronic) Family History Other Hypertension Social History Preferred Language: Kazakh Communication Ability: Effective Visual Impairment: No Limitations Hearing Ability: Normal Reliability Technician Required: No Beliefs That Will Affect Care: None marital status: Single Current Living Situation: Alone Current Living Situation Comment: DOG Other Information That Helps Us Care for You: No Feels Safe at Home: Yes Safety Concerns: Feels Safe At This Time Smoking Status: Never smoker Second Hand Exposure: No Hx Alcohol Use: No Hx Substance Use: No Review of Systems See HPI for pertinent positives & negatives. and A total of 10 systems reviewed and were otherwise negative Physical Exam Vital Signs Vital Signs - 24 hr 04/06/19 09:51 04/06/19 10:42 Pulse Rate [Apical] 102 H 107 H Respiratory Rate 16 16 Blood Pressure [Left Arm] 142/76 H 127/67 Blood Pressure Mean [Left Arm] 98 87 Pulse Oximetry 100 99 Oxygen Delivery Method Room Air Room Air GENERAL: Awake, alert, well-appearing, in no acute distress. Dry heaving. HENT: Normocephalic, atraumatic. Oropharynx unremarkable. EYES: Normal conjunctiva. Sclera non-icteric. NECK: Supple. No nuchal rigidity. FROM. No JVD. RESPIRATORY: Clear to auscultation. CARDIAC: Regular rate, normal rhythm. Extremities warm and well perfused. Pulses equal. ABDOMEN: Soft, non-distended. No tenderness to palpation. No rebound or guarding. No masses. RECTAL: Deferred. MUSCULOSKELETAL: Chest examination reveals no tenderness. The back is symmetrical on inspection without obvious abnormality. There is no CVA tenderness to palpation. No joint edema. LOWER EXTREMITIES: Calves are equal size bilaterally and non-tender. No edema. No discoloration. NEURO: Normal sensorium. No sensory or motor deficits noted. SKIN: No rash or jaundice noted. Course 0707: Past medical records reviewed. The patient was evaluated in room B11B. A complete history and physical examination was performed. 0944: I discussed the patients case with PALMER Laura [email or web address]. She, in conjunction with Dr. Cruz, will evaluate the patient for further management. Administered Medications Amitriptyline HCl (Elavil) 75 mg PO HS KATIE Stop: 05/06/19 20:59 Last Admin: 04/06/19 20:29 Dose: 75 mg Documented by: [id number] Amlodipine Besylate (Norvasc) 10 mg PO QAM [facility] Stop: 05/07/19 08:59 Last Admin: 04/07/19 08:42 Dose: 10 mg Documented by: [id number] Atenolol (Tenormin) 25 mg PO BID [facility] Stop: 05/06/19 20:59 Last Admin: 04/07/19 08:42 Dose: 25 mg Documented by: [id number] Admin: 04/06/19 20:33 Dose: 25 mg Documented by: [id number] Atorvastatin Calcium (Lipitor) 80 mg PO QAM [facility] Stop: 05/07/19 08:59 Last Admin: 04/07/19 08:43 Dose: 80 mg Documented by: [id number] Clobetasol Propionate (Clobetasol Propionate Oint) 1 appln EXT BID KATIE Stop: 05/06/19 20:59 Last Admin: 04/07/19 08:44 Dose: 1 appln Documented by: [id number] Admin: 04/06/19 20:29 Dose: 1 appln Documented by: [id number] Clopidogrel Bisulfate (Plavix) 75 mg PO QAM [facility] Stop: 05/07/19 08:59 Last Admin: 04/07/19 08:43 Dose: 75 mg Documented by: [id number] Dicyclomine HCl (Bentyl) 10 mg PO TID KATIE Stop: 05/06/19 13:59 Last Admin: 04/07/19 08:43 Dose: 10 mg Documented by: [id number] Admin: 04/06/19 20:29 Dose: 10 mg Documented by: [id number] Admin: 04/06/19 14:03 Dose: 10 mg Documented by: [id number] Docusate Sodium (Colace) 100 mg PO BID [facility] Stop: 05/06/19 20:59 Last Admin: 04/07/19 08:42 Dose: 100 mg Documented by: [id number] Admin: 04/06/19 20:30 Dose: 100 mg Documented by: [id number] Doxycycline Hyclate (Vibramycin) 100 mg PO BID [facility]; Protocol Stop: 04/07/19 20:59 Last Admin: 04/07/19 08:42 Dose: 100 mg Documented by: [id number] Admin: 04/06/19 20:33 Dose: 100 mg Documented by: [id number] Duloxetine HCl (Cymbalta) 60 mg PO QAM [facility] Stop: 05/07/19 08:59 Last Admin: 04/07/19 08:45 Dose: 60 mg Documented by: [id number] Enoxaparin Sodium (Lovenox) 40 mg SQ Q24H [facility] Stop: 05/06/19 18:14 Last Admin: 04/06/19 18:43 Dose: Not Given Documented by: [id number] Fluticasone Propionate (Flonase) 2 sprays NA BID [facility]; Protocol Stop: 05/06/19 20:59 Last Admin: 04/07/19 08:44 Dose: 2 sprays Documented by: [id number] Admin: 04/06/19 20:28 Dose: 2 sprays Documented by: [id number] Gabapentin (Neurontin) 400 mg PO TID [facility] Stop: 05/06/19 13:59 Last Admin: 04/07/19 08:43 Dose: 400 mg Documented by: [id number] Admin: 04/06/19 20:31 Dose: 400 mg Documented by: [id number] Admin: 04/06/19 14:03 Dose: 400 mg Documented by: [id number] Ampicillin Sodium/Sulbactam Sodium 3,000 mg/ Sodium Chloride 108 mls @ 216 mls/hr IV Q6H [facility]; Protocol Stop: 04/13/19 13:59 Last Infusion: 04/07/19 09:16 Dose: 0 mls/hr Documented by: [id number] Admin: 04/07/19 08:41 Dose: 216 mls/hr Documented by: [id number] Infusion: 04/07/19 02:04 Dose: 0 mls/hr Documented by: [id number] Admin: 04/07/19 01:33 Dose: 216 mls/hr Documented by: [id number] Infusion: 04/06/19 20:14 Dose: 0 mls/hr Documented by: [id number] Admin: 04/06/19 19:35 Dose: 216 mls/hr Documented by: [id number] Infusion: 04/06/19 14:34 Dose: 0 mls/hr Documented by: [id number] Admin: 04/06/19 14:02 Dose: 216 mls/hr Documented by: [id number] Methylprednisolone 40 mg/ (Syringe) 0.64 mls @ 1.5 mls/min IV Q12 KATIE Stop: 05/06/19 18:14 Last Admin: 04/07/19 08:41 Dose: 1.5 mls/min Documented by: [id number] Admin: 04/06/19 18:43 Dose: 1.5 mls/min Documented by: [id number] Insulin Aspart (Novolog Flexpen) 0 units SC ACHS [facility] Stop: 05/06/19 16:29 Last Admin: 04/07/19 08:54 Dose: Not Given Documented by: [id number] Cosigned by: [id number] Admin: 04/06/19 21:56 Dose: Not Given Documented by: [id number] Cosigned by: [id number] Admin: 04/06/19 18:32 Dose: Not Given Documented by: [id number] Cosigned by: [id number] Levothyroxine Sodium (Synthroid) 112 mcg PO DAILYBB [facility] Stop: 05/07/19 06:29 Last Admin: 04/07/19 05:49 Dose: 112 mcg Documented by: [id number] Lisinopril (Zestril) 10 mg PO QAM [facility] Stop: 05/07/19 08:59 Last Admin: 04/07/19 08:43 Dose: 10 mg Documented by: [id number] Miscellaneous (Order Awaiting Action) 1 ea N/A QS [facility] Stop: 05/06/19 15:59 Last Admin: 04/07/19 08:41 Dose: Not Given Documented by: [id number] Admin: 04/06/19 23:28 Dose: Not Given Documented by: [id number] Admin: 04/06/19 14:34 Dose: Not Given Documented by: [id number] Morphine Sulfate (Ms Contin) 30 mg PO BID [facility] Stop: 05/06/19 20:59 Last Admin: 04/07/19 08:41 Dose: 30 mg Documented by: [id number] Admin: 04/06/19 20:31 Dose: 30 mg Documented by: [id number] Ibuprofen Pm: Non- (Formulary Medication) 2 tab PO HS KATIE Stop: 05/06/19 20:59 Last Admin: 04/06/19 20:32 Dose: 2 tab Documented by: [id number] Oxycodone/Acetaminophen (Percocet 10/325mg) 1 tab PO Q12H PRN PRN Reason: Pain Stop: 04/20/19 12:18 Last Admin: 04/06/19 14:04 Dose: 1 tab Documented by: [id number] Pantoprazole Sodium (Protonix) 40 mg PO BID KATIE Stop: 05/06/19 20:59 Last Admin: 04/07/19 08:43 Dose: 40 mg Documented by: [id number] Admin: 04/06/19 20:30 Dose: 40 mg Documented by: [id number] Tizanidine HCl (Zanaflex) 8 mg PO Q8H PRN PRN Reason: Muscle Spasm Stop: 05/06/19 12:18 Last Admin: 04/06/19 20:56 Dose: 8 mg Documented by: [id number] Topiramate (Topamax) 25 mg PO BID KATIE Stop: 05/06/19 20:59 Last Admin: 04/07/19 08:46 Dose: 25 mg Documented by: [id number] Admin: 04/06/19 20:30 Dose: 25 mg Documented by: [id number] Discontinued Medications Hydromorphone HCl (Dilaudid) 1 mg IV Q15M PRN PRN Reason: Pain Stop: 04/20/19 09:33 Last Admin: 04/06/19 09:47 Dose: 1 mg Documented by: [id number] Sodium Chloride (Nss 1000ml) 1,000 mls @ 999 mls/hr IV .Q1H1M ONE Stop: 04/06/19 08:13 Last Infusion: 04/06/19 08:39 Dose: 0 mls/hr Documented by: [id number] Admin: 04/06/19 07:40 Dose: 999 mls/hr Documented by: [id number] Piperacillin Sod/Tazobactam Sod (Zosyn) 4.5 gm in 120 mls @ 240 mls/hr IV NOW ONE Stop: 04/06/19 10:08 Last Infusion: 04/06/19 11:04 Dose: 0 mls/hr Documented by: [id number] Admin: 04/06/19 10:36 Dose: 240 mls/hr Documented by: [id number] Levofloxacin/Dextrose (Levaquin/D5w) 750 mg in 150 mls @ 100 mls/hr IV NOW STA Stop: 04/06/19 11:08 Last Infusion: 04/06/19 12:58 Dose: 0 mls/hr Documented by: [id number] Admin: 04/06/19 11:04 Dose: 100 mls/hr Documented by: [id number] Piperacillin Sod/Tazobactam (Sod 3.375 gm/ Dextrose) 115 mls @ 28.75 mls/hr IV Q8H KATIE; Protocol Stop: 04/16/19 11:59 Last Admin: 04/06/19 13:00 Dose: Not Given Documented by: [id number] Sodium Chloride (Nss 1000ml) 1,000 mls @ 100 mls/hr IV .Q10H KATIE Stop: 04/06/19 23:14 Last Infusion: 04/07/19 00:07 Dose: 0 mls/hr Documented by: [id number] Admin: 04/06/19 14:01 Dose: 100 mls/hr Documented by: [id number] Ioversol (Optiray 320 125ml) 118 ml IV ONCE PRN PRN Reason: Interaction Checking Stop: 04/10/19 09:02 Last Admin: 04/06/19 09:04 Dose: 118 ml Documented by: [id number] Ketorolac Tromethamine (Toradol) 30 mg IV NOW STA Stop: 04/06/19 09:35 Last Admin: 04/06/19 09:47 Dose: 30 mg Documented by: [id number] Metoclopramide HCl (Reglan) 10 mg IV NOW STA Stop: 04/06/19 09:35 Last Admin: 04/06/19 09:47 Dose: 10 mg Documented by: [id number] Morphine Sulfate (Ms Contin) 30 mg PO Q12H STA Stop: 04/06/19 13:29 Last Admin: 04/06/19 14:04 Dose: 30 mg Documented by: [id number] Ondansetron HCl (Zofran) 4 mg IV NOW STA Stop: 04/06/19 07:37 Last Admin: 04/06/19 07:41 Dose: 4 mg Documented by: [id number] Prednisone (Prednisone) 5 mg PO NOW ONE Stop: 04/06/19 14:51 Last Admin: 04/06/19 17:39 Dose: 5 mg Documented by: [id number] Medical Decision Making Differential Diagnosis Differential diagnosis includes: viral syndrome, otitis, pharyngitis, pneumonia, influenza, meningitis, urinary tract infection, sepsis, bacteremia, as well as others were entertained. Medical Records Attestation: I reviewed the patient's medical records. Home Medications Current Medication List: was personally reviewed by me Laboratory Data Attestation: I reviewed the patient's lab results. Result diagrams: 04/06/19 07:24 04/06/19 07:24 Lab Results 04/06/19 04/06/19 04/06/19 Range/Units 07:24 07:24 07:24 WBC 9.96 (4.8-10.8) K/uL RBC 5.37 (4.7-6.1) M/uL Hgb 14.5 (14.0-18.0) g/dL POC Hgb (14.0-18.0) g/dl Hct 44.1 (42-52) % POC Hct (42-52) % MCV 82.1 (80-100) fL MCH 27.0 (25-34) pg MCHC 32.9 (32-36) g/dL RDW Std Deviation 47.9 H (36.4-46.3) fL RDW Coeff of Neida 15.9 H (11.5-14.5) % Plt Count 336 (130-400) K/uL MPV 8.7 (7.4-10.4) fL Immature Gran % (Auto) 0.7 % Neut % (Auto) 76.5 % Lymph % (Auto) 11.5 % [place] % (Auto) 8.1 % Eos % (Auto) 3.0 % Baso % (Auto) 0.2 % Immature Gran # (Auto) 0.07 H (0.00-0.02) K/uL Neut # (Auto) 7.61 H (1.4-6.5) K/uL Lymph # (Auto) 1.15 L (1.2-3.4) K/uL [place] # (Auto) 0.81 H (0.11-0.59) K/uL Eos # (Auto) 0.30 (0-0.5) K/uL Baso # (Auto) 0.02 (0-0.2) K/uL Absolute Nucleated RBC 0.00 (0-0) K/uL Nucleated RBC % (auto) 0.0 % Echinocytes 1+ Peripher Smr Path Cons POC Sodium (135-144) mEq/L Sodium 143 (136-145) mmol/L POC Potassium (3.3-5.0) mEq/L Potassium 3.7 (3.5-5.1) mmol/L POC Chloride (101-112) mEq/L Chloride 110 H (98-107) mmol/L Carbon Dioxide 23 (21-32) mmol/L POC Total CO2 (24-31) mEq/l Anion Gap 10.0 (3-11) POC Anion Gap (16-25) mmol/L POC BUN (7-18) mg/dl BUN 21 H (7-18) mg/dl Creatinine 1.16 (0.6-1.4) mg/dl POC Creatinine (0.6-1.3) mg/dl Est Cr Clr Drug Dosing 65.2 ml/min Est GFR ( Amer) 77.2 Est GFR (Non-Af Amer) 66.7 BUN/Creatinine Ratio 18.1 (10-20) Glucose 97 (70-99) mg/dl POC Glucose (other) (70-99) mg/dl Calcium 9.2 (8.5-10.1) mg/dl POC Ioniz Calcium Rhina (1.12-1.32) mmol/l Total Bilirubin 0.4 (0.2-1) mg/dl AST 41 H (15-37) U/L ALT 44 (12-78) U/L Alkaline Phosphatase 382 H (45-117) U/L Total Creatine Kinase 30 L (39-308) U/L Troponin I < 0.015 (0-0.045) ng/ml Total Protein 7.2 (6.4-8.2) gm/dl Albumin 3.1 L (3.4-5.0) gm/dl Globulin 4.1 H (2.5-4.0) gm/dl Albumin/Globulin Ratio 0.8 L (0.9-2) TSH 0.776 (0.300-4.500) uIu/ml Urine Color Urine Appearance (Clear) Urine pH (4.5-7.5) Ur Specific [place] (1.000-1.030) Urine Protein (Negative) Urine Glucose (UA) (Negative) Urine Ketones (Negative) Urine Blood (Negative) Urine Nitrite (Negative) Urine Bilirubin (Negative) Urine Urobilinogen (Negative) Ur Leukocyte Esterase (Negative) Urine WBC (Auto) (0-5) /hpf Urine RBC (Auto) (0-4) /hpf U Hyaline Cast (Auto) (0-5) /lpf U Epithel Cells (Auto) (0-5) /lpf Urine Bacteria (Auto) (Negative) Urine Opiates Screen (Neg) Ur Methadone, Qual (Neg) Urine Barbiturates (Neg) Ur Phencyclidine (PCP) (Neg) U Amphetamin/Meth Scrn (Neg) MDMA (Ecstasy) Screen (Neg) U Benzodiazepines Scrn (Neg) Ur Cocaine Metabolite (Neg) U Marijuana (THC) Screen (Neg) Lyme Disease IgG Ab Negative (Negative) Lyme Disease IgM Ab Negative (Negative) Hepatitis C Ab Screen (Neg) Monoscreen Negative (Negative) 04/06/19 04/06/19 04/06/19 Range/Units 07:28 07:28 07:45 WBC (4.8-10.8) K/uL RBC (4.7-6.1) M/uL Hgb (14.0-18.0) g/dL POC Hgb 15.0 (14.0-18.0) g/dl Hct (42-52) % POC Hct 44 (42-52) % MCV (80-100) fL MCH (25-34) pg MCHC (32-36) g/dL RDW Std Deviation (36.4-46.3) fL RDW Coeff of Neida (11.5-14.5) % Plt Count (130-400) K/uL MPV (7.4-10.4) fL Immature Gran % (Auto) % Neut % (Auto) % Lymph % (Auto) % [place] % (Auto) % Eos % (Auto) % Baso % (Auto) % Immature Gran # (Auto) (0.00-0.02) K/uL Neut # (Auto) (1.4-6.5) K/uL Lymph # (Auto) (1.2-3.4) K/uL [place] # (Auto) (0.11-0.59) K/uL Eos # (Auto) (0-0.5) K/uL Baso # (Auto) (0-0.2) K/uL Absolute Nucleated RBC (0-0) K/uL Nucleated RBC % (auto) % Echinocytes Peripher Smr Path Cons POC Sodium 141 (135-144) mEq/L Sodium (136-145) mmol/L POC Potassium 3.6 (3.3-5.0) mEq/L Potassium (3.5-5.1) mmol/L POC Chloride 106 (101-112) mEq/L Chloride (98-107) mmol/L Carbon Dioxide (21-32) mmol/L POC Total CO2 20 L (24-31) mEq/l Anion Gap (3-11) POC Anion Gap 21.0 (16-25) mmol/L POC BUN 21 H (7-18) mg/dl BUN (7-18) mg/dl Creatinine (0.6-1.4) mg/dl POC Creatinine 1.3 (0.6-1.3) mg/dl Est Cr Clr Drug Dosing ml/min Est GFR ( Amer) Est GFR (Non-Af Amer) BUN/Creatinine Ratio (10-20) Glucose (70-99) mg/dl POC Glucose (other) 96 (70-99) mg/dl Calcium (8.5-10.1) mg/dl POC Ioniz Calcium Rhina 1.08 L (1.12-1.32) mmol/l Total Bilirubin (0.2-1) mg/dl AST (15-37) U/L ALT (12-78) U/L Alkaline Phosphatase (45-117) U/L Total Creatine Kinase (39-308) U/L Troponin I (0-0.045) ng/ml Total Protein (6.4-8.2) gm/dl Albumin (3.4-5.0) gm/dl Globulin (2.5-4.0) gm/dl Albumin/Globulin Ratio (0.9-2) TSH (0.300-4.500) uIu/ml Urine Color Dark Yellow Urine Appearance Turbid A (Clear) Urine pH 8.5 H (4.5-7.5) Ur Specific [place] 1.023 (1.000-1.030) Urine Protein Negative (Negative) Urine Glucose (UA) Negative (Negative) Urine Ketones Negative (Negative) Urine Blood Negative (Negative) Urine Nitrite Negative (Negative) Urine Bilirubin Negative (Negative) Urine Urobilinogen Negative (Negative) Ur Leukocyte Esterase Negative (Negative) Urine WBC (Auto) 1-5 (0-5) /hpf Urine RBC (Auto) 10-30 H (0-4) /hpf U Hyaline Cast (Auto) 1-5 (0-5) /lpf U Epithel Cells (Auto) 5-10 H (0-5) /lpf Urine Bacteria (Auto) Negative (Negative) Urine Opiates Screen (Neg) Ur Methadone, Qual (Neg) Urine Barbiturates (Neg) Ur Phencyclidine (PCP) (Neg) U Amphetamin/Meth Scrn (Neg) MDMA (Ecstasy) Screen (Neg) U Benzodiazepines Scrn (Neg) Ur Cocaine Metabolite (Neg) U Marijuana (THC) Screen (Neg) Lyme Disease IgG Ab (Negative) Lyme Disease IgM Ab (Negative) Hepatitis C Ab Screen Neg (Neg) Monoscreen (Negative) 04/06/19 Range/Units 07:45 WBC (4.8-10.8) K/uL RBC (4.7-6.1) M/uL Hgb (14.0-18.0) g/dL POC Hgb (14.0-18.0) g/dl Hct (42-52) % POC Hct (42-52) % MCV (80-100) fL MCH (25-34) pg MCHC (32-36) g/dL RDW Std Deviation (36.4-46.3) fL RDW Coeff of Neida (11.5-14.5) % Plt Count (130-400) K/uL MPV (7.4-10.4) fL Immature Gran % (Auto) % Neut % (Auto) % Lymph % (Auto) % [place] % (Auto) % Eos % (Auto) % Baso % (Auto) % Immature Gran # (Auto) (0.00-0.02) K/uL Neut # (Auto) (1.4-6.5) K/uL Lymph # (Auto) (1.2-3.4) K/uL [place] # (Auto) (0.11-0.59) K/uL Eos # (Auto) (0-0.5) K/uL Baso # (Auto) (0-0.2) K/uL Absolute Nucleated RBC (0-0) K/uL Nucleated RBC % (auto) % Echinocytes Peripher Smr Path Cons POC Sodium (135-144) mEq/L Sodium (136-145) mmol/L POC Potassium (3.3-5.0) mEq/L Potassium (3.5-5.1) mmol/L POC Chloride (101-112) mEq/L Chloride (98-107) mmol/L Carbon Dioxide (21-32) mmol/L POC Total CO2 (24-31) mEq/l Anion Gap (3-11) POC Anion Gap (16-25) mmol/L POC BUN (7-18) mg/dl BUN (7-18) mg/dl Creatinine (0.6-1.4) mg/dl POC Creatinine (0.6-1.3) mg/dl Est Cr Clr Drug Dosing ml/min Est GFR ( Amer) Est GFR (Non-Af Amer) BUN/Creatinine Ratio (10-20) Glucose (70-99) mg/dl POC Glucose (other) (70-99) mg/dl Calcium (8.5-10.1) mg/dl POC Ioniz Calcium Rhina (1.12-1.32) mmol/l Total Bilirubin (0.2-1) mg/dl AST (15-37) U/L ALT (12-78) U/L Alkaline Phosphatase (45-117) U/L Total Creatine Kinase (39-308) U/L Troponin I (0-0.045) ng/ml Total Protein (6.4-8.2) gm/dl Albumin (3.4-5.0) gm/dl Globulin (2.5-4.0) gm/dl Albumin/Globulin Ratio (0.9-2) TSH (0.300-4.500) uIu/ml Urine Color Urine Appearance (Clear) Urine pH (4.5-7.5) Ur Specific [place] (1.000-1.030) Urine Protein (Negative) Urine Glucose (UA) (Negative) Urine Ketones (Negative) Urine Blood (Negative) Urine Nitrite (Negative) Urine Bilirubin (Negative) Urine Urobilinogen (Negative) Ur Leukocyte Esterase (Negative) Urine WBC (Auto) (0-5) /hpf Urine RBC (Auto) (0-4) /hpf U Hyaline Cast (Auto) (0-5) /lpf U Epithel Cells (Auto) (0-5) /lpf Urine Bacteria (Auto) (Negative) Urine Opiates Screen Pos H (Neg) Ur Methadone, Qual Neg (Neg) Urine Barbiturates Neg (Neg) Ur Phencyclidine (PCP) Neg (Neg) U Amphetamin/Meth Scrn Neg (Neg) MDMA (Ecstasy) Screen Neg (Neg) U Benzodiazepines Scrn Neg (Neg) Ur Cocaine Metabolite Neg (Neg) U Marijuana (THC) Screen Neg (Neg) Lyme Disease IgG Ab (Negative) Lyme Disease IgM Ab (Negative) Hepatitis C Ab Screen (Neg) Monoscreen (Negative) Imaging Data Radiologist's Impression: Radiology results as stated below per my review and the radiologist's interpretation: XR chest 1V portable CLINICAL HISTORY: weakness dyspnea COMPARISON STUDY: 03/31/2019 FINDINGS: The bones soft tissues and hemidiaphragms are normal. The card iomediastinal silhouette is normal. The lungs are clear. The pulmonary vasculature is normal. IMPRESSION: Negative chest. The above report was generated using voice recognition software. It may contain grammatical, syntax or spelling errors. Electronically signed by: Rich Pedro M.D. 04/06/2019 7:[address] abd pelvis IV con only CLINICAL HISTORY: 63 years-old Male presenting with Pt c/o abd pain. TECHNIQUE: Multidetector CT of the abdomen and pelvis was performed after the administration of intravenous contrast. IV contrast: 118 mL of Optiray 320. One or more dose lowering techniques were used consistent with the principles of ALARA (as low as reasonably achievable), including automatic exposure control, mA or kV adjustment to individual patient size, and/or use of iterative reconstruction. COMPARISON: 08/28/2017. CT DOSE (mGy.cm): The estimated cumulative dose is 676.14. 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 Lung bases: Normal heart size. No pericardial or pleural effusion. Patchy groundglass infiltrate in a peribronchovascular distribution in the right middle lobe. Additional more subtle centrilobular groundglass opacities in the right lower lobe. Liver: Normal morphology. Subcentimeter hypodense well-defined lesions likely hepatic cysts or hamartomas. Patent hepatic vasculature. Biliary: No intrahepatic or extrahepatic biliary ductal dilatation. Gallbladder is likely distended on a physiologic basis. No evidence of tension. No gallbladder wall thickening. Pancreas: Moderate parenchymal atrophy. Spleen: Normal. Adrenal glands: Normal. Kidneys and ureters: Few subcentimeter cysts suggested. Evaluation for nephrolithiasis is limited given the excretion of contrast in the urinary collecting systems. No hydronephrosis. Ureters nondistended. Bladder: Incompletely evaluated secondary to underdistention. Pelvic organs: Prostate enlargement likely secondary to benign prostatic hyperplasia. Bowel: Normal appendix. No bowel obstruction. Peritoneal cavity: No free fluid or intraperitoneal gas. Lymph nodes: No enlarged lymph nodes in the abdomen or pelvis. Vasculature: Atherosclerosis of the normal caliber abdominal aorta. IVC patent. Abdominal wall: Normal. Musculoskeletal: Degenerative changes of the spine. IMPRESSION: 1. No acute intra-abdominal pathology. 2. Suspected physiologic gallbladder distention. No convincing evidence of cholecystitis. 3. Prostatomegaly. 4. Patchy infiltrates in the right middle and lower lobes concerning for infectious bronchiolitis. Electronically signed by: Jorge Hart M.D. 04/06/2019 9:[address] angio chest PE protocol CT DOSE: 676.14 mGy.cm HISTORY: 63 years-old Male with PE. Acute cough TECHNIQUE: Multiple CTA images of the chest were obtained after the intravenous administration of 118 ml Optiray 320. Coronal and sagittal MIPS were obtained from the axial data set and were submitted for review. All measurements were obtained according to NASCET criteria. A dose lowering technique was utilized adhering to the principles of ALARA. COMPARISON: CT abdomen and pelvis of same day. FINDINGS: CTA: The heart is normal in size without pericardial effusion. No thoracic aortic aneurysm or dissection. There is patency of the imaged great vessels. Moderate mixed plaque formation of the descending thoracic aorta. The pulmonary arterial tree is suboptimally opacified. Evaluation of the segmental and subsegmental branches is also limited secondary to respiratory motion. No central pulmonary emboli identified. CT CHEST: No focal thyroid nodule. No adenopathy by CT size criteria. No pneumothorax or pleural effusion. Patchy groundglass and consolidative opacities of the upper lobes, right middle lobe and to a lesser extent within the lower lobes. Evaluation of the lung parenchyma is limited secondary to respiratory motion artifact. 5 mm fissural lymph node on the left, image 157 series 4. 4 mm solid nodule of the inferior segment lingula. 5 mm solid nodule of the left lower lobe, image 86 series 4. 5 mm solid nodule of the right lower lobe, image 134 series 4. Central airways appear patent. No acute process of the imaged upper abdomen. Gynecomastia. Fusion hardware of the cervical spine. Degenerative changes of the shoulders and spine. The bones appear intact. IMPRESSION: 1. Suboptimal evaluation of the pulmonary arterial tree secondary to respiratory motion. No central pulmonary emboli identified. 2. Patchy bibasilar groundglass and consolidative opacities within an upper lung zone prominent distribution is suggestive of multifocal pneumonia. 3. There are a few scattered solid pulmonary nodules noted bilaterally measuring up to 5 mm which may also be on an infectious or inflammatory basis. 4. No adenopathy or pleural effusion. Please refer to below summary of Fleischner criteria recommendations for follow- up of incidental CT nodules (Carrie Corbett, Guidelines for management of small pulmonary nodules detected on CT scans: A statement from the Fleischner Society, Radiology 237: [phone].) SOLID NODULES Multiple nodules size: <6 mm * Low risk patients: no routine follow-up * high risk patients: optional CT at 12 months Note: newly detected indeterminate nodule in persons 35 years of age or older. * Low risk patients: minimal or absent history of smoking and/or other known risk factors * high risk patients: history of smoking or of other known risk factors (e.g. first degree relative with lung cancer, or exposure to asbestos, radon, uranium) * if a nodule up to 8 mm is partly solid or is ground glass further follow-up is required after 24 months to exclude possible slow growing adenocarcinoma (YULY) The above report was generated using voice recognition software. It may contain grammatical, syntax or spelling errors. Electronically signed by: Mason Diaz M.D. 04/06/2019 9:14 AM ECG Data Attestation: I personally reviewed and interpreted this ECG as follows: Indication: weakness Rate (beats per minute): 91 Rhythm: normal sinus Findings: no ST depression and no ST elevation Blood Pressure Blood Pressure Findings: Elevated blood pressure Blood Pressure Disposition: further management by hospitalist KAEL Jurado This is a 63-year-old male who presents the emergency department complaining of generalized weakness. Based on the patient's complaints he was sent for a CAT scan of the chest abdomen and pelvis. This is concerning for multifocal pneumonia. Blood cultures were obtained and the patient was started on antibiotics. The patient was given normal saline Zofran Toradol and Dilaudid. Repeat examination revealed improvement the patient's symptoms. I did discuss case the hospitalist service who agreed to admit the patient. Patient family were in agreement with the treatment plan. Impression & Plan Multifocal pneumonia Discharge Plan Visit Data *Final* Discharge Date/Time: 04/06/19 12:06 Chief Complaint: Fever Stated Complaint: FEVER,CHILLS ED Provider: Herson Martinez Discharge Problem: Multifocal pneumonia Patient Disposition: Admitted As Inpatient Discharge Instructions Interventions: ED Discharge Assessment Last Done: 04/06/19 12:06 The scribe's documentation has been prepared under my direction and personally reviewed by me in its entirety. I confirm that the note above accurately reflects all work, treatment, procedures, and medical decision making performed by me.
[2019-04-06] MEDS: INSULIN ASPART 100 UNITS/ML 3 ML PEN SC SCH ×2 (18:32→21:56)
[2019-04-06] MEDS: methylPREDNISolone 40 MG in SYRINGE 0 ML IV SCH (18:43)
[2019-04-06] MEDS: ENOXAPARIN INJ 40 MG/0.4 ML SYR SQ SCH (18:43)
[2019-04-06] MEDS: FLUTICASONE PROPIONATE NA SPR 16 GM BTL SCH (20:28)
[2019-04-06] MEDS: AMITRIPTYLINE HCL 25 MG TAB PO SCH (20:29)
[2019-04-06] MEDS: CLOBETASOL PROPIONATE 0.05% OINT 15 GM TUBE EXT SCH (20:29)
[2019-04-06] MEDS: DOCUSATE SODIUM 100 MG CAP PO SCH (20:30)
[2019-04-06] MEDS: PANTOprazole 40 MG TAB PO SCH (20:30)
[2019-04-06] MEDS: TOPIRAMATE 25 MG TAB PO SCH (20:30)
[2019-04-06] MEDS: MoRPHine SULFATE CR 15 MG TABCR PO SCH (20:31)
[2019-04-06] MEDS: IBUPROFEN PM PO SCH (20:32)
[2019-04-06] MEDS: DOXYCYCLINE HYCLATE 100 MG CAP PO SCH (20:33)
[2019-04-06] MEDS: ATENOLOL 25 MG TABLET PO SCH (20:33)
[2019-04-06] MEDS: TIZANIDINE HCL 4 MG TABLET PO PRN (20:56)
[2019-04-07] MEDS: AMPICILLIN/SULBACTAM SOD 3,000 MG in 0.9 % SODIUM CHLORIDE 100 ML IV SCH ×4 (01:33→21:11)
--- NOTE | 2019-04-07 01:37 | Consultation Report ---
DATE OF CONSULTATION: 04/06/2019 REASON FOR CONSULTATION: Multifocal pneumonia. HISTORY OF PRESENT ILLNESS: A 63-year-old white male, patient of Dr. Johnathan Rain, who was admitted to the hospital earlier today with progressive dyspnea, dry nonproductive cough, and pneumonitis. He is disabled from chronic neck pain and is on chronic narcotics. 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 He is a nonsmoker, denies secondary exposure and denies illicit drug use. He states for 14 days he has been sick with a dry nonproductive cough without pleuritic pain, but did have rigors and chills within this 2-week period. He was seen in the Emergency Room by Dr. David Sánchez on 03/31/2019 and at that time complained of dizziness for 1 week and lightheaded symptomatology with equilibrium issues. He was hypotensive reportedly and has a history of a transient ischemic attack, both in 2013 and 2016, and is on Plavix for this. He has a history of gastroesophageal reflux. He has undergone EGD in the past as well. He has had uvulopalatopharyngoplasty for sleep apnea in the past. 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 Because of his ongoing symptoms, he was admitted to the hospital and placed on IV Zosyn and Levaquin in the ED with the cultures pending and then switched to Unasyn and doxycycline to cover for both aspiration and anaplasmosis. He does not have joint symptoms per se, but his muscles do ache. Both Lyme and Anaplasma serologies are pending. I have been asked to see patient in consultation. He has undergone a CTA on 04/06/2019 which ruled out pulmonary thromboembolic disease, although it was a suboptimal evaluation. It showed patchy bibasilar ground-glass and consolidative opacities within an upper lung zone prominent to severe suggestive of multifocal pneumonia. There were also a few scattered solid pulmonary nodules bilaterally up to 5 mm. No adenopathy or effusion noted. For details of past medical history, medications, family and social history, I refer you to current and past record. PHYSICAL EXAMINATION: GENERAL: This is a well-developed, well-nourished white male in no obvious respiratory distress. VITAL SIGNS: Blood pressure 137/72, pulse 109 and regular, respiratory rate 18, temperature 36.6, O2 sat 98% on room air. SKIN: Without lesion. HEENT: Atraumatic, normocephalic, PERRLA, EOMI. Conjunctivae pink. Sclerae nonicteric. Fundi poorly visualized. NECK: Neck veins are not distended at 45 degrees. No adenopathy in the supra or infraclavicular areas. LUNGS: Distant P and A, but the patient cannot make a full inspiratory effort without triggering paroxysms of coughing. No obvious egophony. CARDIAC: Regular rate and rhythm. I do not appreciate a gallop. ABDOMEN: Soft, scaphoid. EXTREMITIES: No pedal edema, clubbing, or cyanosis. NEUROLOGIC: Intact. No lateralizing signs. LABORATORY DATA: H and H 14.5 and 44, white count is 9900 on admission, 3.0% peripheral eosinophilia. CT scan as noted. Blood cultures pending. EKG, normal sinus rhythm with borderline left atrial enlargement. QT has lengthened. Echocardiogram done in 06/2017 shows normal LVEF. No significant valvular heart disease was noted at that time. OVERALL ASSESSMENT AND PLAN: A 63-year-old nonsmoker on chronic opioids for chronic cervical neck pain, admitted with 2-week prodrome of dry nonproductive cough, ground-glass opacities, suggestive of multilobar pneumonia. Certainly this could be an atypical bacterial infection, mycoplasma or legionella, although I would think patient would be more toxic. He did complain of rigors and chills at one point when seen in the ER approximately a week ago. We will test for that and patient has already had serologies sent for Anaplasma and Ehrlichia antibodies as well. He is being hydrated, given nebulizer treatments, and has been placed on doxycycline. I would also use IV Solu-Medrol and the patient will need to be followed closely for resolution of these ground-glass opacities and followup for the solid subcentimeter pulmonary nodules as well. MTDD
[2019-04-07] MEDS: LEVOTHYROXINE SODIUM 112 MCG TABLET PO SCH (05:49)
[2019-04-07] MEDS ORDERED: LEVOTHYROXINE SODIUM 75 MCG TABLET PO SCH (06:30)
[2019-04-07 07:20] LABS: Estimated Average Glucose 137 mg/dl; Hemoglobin A1C 6.4 % (4.5-5.6)
[2019-04-07] MEDS: MoRPHine SULFATE CR 15 MG TABCR PO SCH ×2 (08:41→21:30)
[2019-04-07] MEDS: methylPREDNISolone 40 MG in SYRINGE 0 ML IV SCH ×2 (08:41→21:13)
[2019-04-07] MEDS: AZELASTINE: ORDER AWAITING ACTION SCH ×3 (08:41→23:56)
[2019-04-07] MEDS: DOCUSATE SODIUM 100 MG CAP PO SCH ×2 (08:42→20:43)
[2019-04-07] MEDS: ATENOLOL 25 MG TABLET PO SCH ×2 (08:42→21:17)
[2019-04-07] MEDS: AMLODIPINE BESYLATE 5 MG TAB PO SCH (08:42)
[2019-04-07] MEDS: DOXYCYCLINE HYCLATE 100 MG CAP PO SCH ×2 (08:42→21:19)
[2019-04-07] MEDS: ATORVASTATIN 40 MG TAB PO SCH (08:43)
[2019-04-07] MEDS: LISINOPRIL 10 MG TAB PO SCH (08:43)
[2019-04-07] MEDS: CLOPIDOGREL BISULFATE 75 MG TAB PO SCH (08:43)
[2019-04-07] MEDS: DICYCLOMINE HCL 10 MG CAP PO SCH ×3 (08:43→20:43)
[2019-04-07] MEDS: PANTOprazole 40 MG TAB PO SCH ×2 (08:43→20:44)
[2019-04-07] MEDS: GABAPENTIN 400 MG CAP PO SCH ×3 (08:43→21:13)
[2019-04-07] MEDS: CLOBETASOL PROPIONATE 0.05% OINT 15 GM TUBE EXT SCH ×2 (08:44→21:25)
[2019-04-07] MEDS: FLUTICASONE PROPIONATE NA SPR 16 GM BTL SCH ×2 (08:44→21:12)
[2019-04-07] MEDS: DULOXETINE HCL 60 MG CAP PO SCH (08:45)
[2019-04-07] MEDS: TOPIRAMATE 25 MG TAB PO SCH ×2 (08:46→21:18)
[2019-04-07] MEDS: INSULIN ASPART 100 UNITS/ML 3 ML PEN SC SCH ×4 (08:54→21:27)
--- NOTE | 2019-04-07 10:34 | Progress Note ---
DATE: 04/07/2019 PULMONARY MEDICINE PROGRESS NOTE Chart reviewed, the patient examined. SUBJECTIVE: The patient feels better, did not sleep well last night due to numerous interruptions. He is able to take a full breath now with only minimal coughing which he could not do yesterday. Seems to be less bronchospastic or at least demonstrating less reactive airway disease. OBJECTIVE: VITAL SIGNS: Blood pressure 153/73, pulse 96 and regular, respiratory rate 18, temperature 36.4, O2 sat 100% on room air. SKIN: Warm and dry. HEENT: Atraumatic, normocephalic. PERRLA. EOMI. Conjunctivae pink. Sclerae nonicteric. Fundi poorly visualized. NECK: Neck veins not distended at 45 degrees. No evidence of adenopathy in the supra or infraclavicular areas. LUNGS: Distant P and A with some crackles, can make a full inspiratory effort without triggering paroxysms of coughing. CARDIAC: Sinus tachycardia. No murmurs or gallops. ABDOMEN: Soft, scaphoid. No evidence of hepatosplenomegaly. EXTREMITIES: No pedal edema, clubbing or cyanosis. NEUROLOGIC: Intact. No lateralizing signs. Serology screens are pending. OVERALL ASSESSMENT: A 63-year-old with pneumonitis/diffuse ground-glass opacities with solid subcentimeter nodules as well, all consistent with multifocal pneumonia, appears to be responding to current therapy. I suspect the patient may very well be able to be discharged within the next 24-48 hours on oral medication if he continues to improve.
--- NOTE | 2019-04-07 16:35 | Hospitalist Progress Note ---
Date of Service April 07, 2019 Assessment & Plan (1) Multifocal pneumonia: Chest x-ray did not show any infiltrates, but CTA chest demonstrated infiltrates in bilateral upper lobes, RML, bilateral lower lobes. Multilobar pneumonia, community acquired. Blood cultures obtained. Initially received IV piperacillin / tazobactam + doxycycline. Now receiving IV ampicillin / sulbactam + doxy. Pulmonary Medicine consulted. (2) Pulmonary nodules: Multiple pulmonary nodules measuring 4-5 mm noted on CTA chest. Follow-up per Pulmonary Medicine. (3) Hypertension: Continue atenolol and lisinopril. (4) GERD (gastroesophageal reflux disease): Continue PPI. (5) Diabetes mellitus type 2, controlled: Hgb A1C = 6.4. Hold metformin during hospital stay. Insulin coverage as needed. FBS today = 86. (6) Panhypopituitarism: Continue hormone replacement. (7) Chronic neck pain: Continue usual analgesics. (8) DVT prophylaxis: SQ enoxaparin. Ambulate. (9) Discharge planning issues: Anticipated discharge to home. Family Medicine follow-up with Dr. Rain. Subjective Recheck for pneumonia. Patient seen in their room around 10:40. Feels better, although still fatigued. Cough and dyspnea improved. No fever. Review of Systems: Constitutional- no fever. Cardiac- no chest pain. Pulmonary- as noted above. GI- no nausea, vomiting, diarrhea, melena, hematochezia. - no urinary symptoms. Otherwise, as noted above. Physical Exam Constitutional: no acute distress Respiratory: no respiratory distress Auscultation: + wheezes Cardiovascular: Rate/Rhythm: regular rate and regular rhythm Vessels: no JVD Extremities: no calf tenderness and no edema Gastrointestinal (Abdomen): normal bowel sounds, soft, nontender, no hepatosplenomegaly Skin: no rashes, warm and dry Psychiatric: Orientation: alert and oriented x 3 Results & Data Vital Signs (Past 12 Hours) Vital Signs Temp Pulse Pulse Resp BP Pulse Ox 04/07/19 15:30 36.7 C 83 18 142/58 H 96 04/07/19 11:14 36.8 C 95 H 18 149/73 H 99 04/07/19 08:00 96 H 04/07/19 07:24 36.4 C L 101 H 18 153/73 H 100 Laboratory Results Abnormal Lab Results 0604/06/19 04/07/19 16:38 20:15 06:20 POC Glucose 90 95 Estimat Average Glucose 137 Hemoglobin A1c 6.4 H 04/07/19 04/07/19 07:43 11:41 POC Glucose 86 94 Estimat Average Glucose Hemoglobin A1c
[2019-04-07] MEDS: OXYCODONE/ACETAMINOPHEN 10-325 TAB PO PRN (16:47)
[2019-04-07] MEDS: ENOXAPARIN INJ 40 MG/0.4 ML SYR SQ SCH (16:48)
[2019-04-07] MEDS: AMITRIPTYLINE HCL 25 MG TAB PO SCH (20:43)
[2019-04-07] MEDS: IBUPROFEN PM PO SCH (21:14)
[2019-04-07] MEDS: TIZANIDINE HCL 4 MG TABLET PO PRN (21:50)
[2019-04-08] MEDS: AMPICILLIN/SULBACTAM SOD 3,000 MG in 0.9 % SODIUM CHLORIDE 100 ML IV SCH ×2 (02:19→09:29)
[2019-04-08] MEDS: LEVOTHYROXINE SODIUM 112 MCG TABLET PO SCH (06:04)
[2019-04-08 07:41] LABS: Creatinine Clr Calc Pharmacy 91.1 ml/min; Est GFR (African American) 108.5; Est GFR (Non-African American) 93.6
[2019-04-08] MEDS: GABAPENTIN 400 MG CAP PO SCH (09:30)
[2019-04-08] MEDS: AMLODIPINE BESYLATE 5 MG TAB PO SCH (09:30)
[2019-04-08] MEDS: AZELASTINE: ORDER AWAITING ACTION SCH (09:30)
[2019-04-08] MEDS: CLOPIDOGREL BISULFATE 75 MG TAB PO SCH (09:30)
[2019-04-08] MEDS: ATORVASTATIN 40 MG TAB PO SCH (09:30)
[2019-04-08] MEDS: LISINOPRIL 10 MG TAB PO SCH (09:31)
[2019-04-08] MEDS: DOXYCYCLINE HYCLATE 100 MG CAP PO SCH (09:31)
[2019-04-08] MEDS: ATENOLOL 25 MG TABLET PO SCH (09:31)
[2019-04-08] MEDS: PANTOprazole 40 MG TAB PO SCH (09:31)
[2019-04-08] MEDS: DICYCLOMINE HCL 10 MG CAP PO SCH (09:31)
[2019-04-08] MEDS: TOPIRAMATE 25 MG TAB PO SCH (09:31)
[2019-04-08] MEDS: DOCUSATE SODIUM 100 MG CAP PO SCH (09:31)
[2019-04-08] MEDS: DULOXETINE HCL 60 MG CAP PO SCH (09:31)
[2019-04-08] MEDS: FLUTICASONE PROPIONATE NA SPR 16 GM BTL SCH (09:32)
[2019-04-08] MEDS: CLOBETASOL PROPIONATE 0.05% OINT 15 GM TUBE EXT SCH (09:32)
[2019-04-08] MEDS: MoRPHine SULFATE CR 15 MG TABCR PO SCH (09:32)
[2019-04-08] MEDS: methylPREDNISolone 40 MG in SYRINGE 0 ML IV SCH (09:33)
[2019-04-08] MEDS: INSULIN ASPART 100 UNITS/ML 3 ML PEN SC SCH (09:52)
--- NOTE | 2019-04-08 10:46 | Hospitalist Progress Note ---
Date of Service April 08, 2019 Assessment & Plan (1) Multifocal pneumonia: Chest x-ray did not show any infiltrates, but CTA chest demonstrated infiltrates in bilateral upper lobes, RML, bilateral lower lobes. Multilobar pneumonia, community acquired. Blood cultures obtained. Initially received IV piperacillin / tazobactam + doxycycline, then IV ampicillin / sulbactam + doxy. Pulmonary Medicine consulted. Steroids added to regimen. Recently completed course of amoxicillin / clavulanic acid. Discharge on levofloxacin 750 mg PO daily to complete course of therapy + prednisone taper. (2) Pulmonary nodules: Multiple pulmonary nodules measuring 4-5 mm noted on CTA chest. Follow-up per Pulmonary Medicine. (3) Hypertension: Continue atenolol and lisinopril. (4) GERD (gastroesophageal reflux disease): Continue PPI. (5) Diabetes mellitus type 2, controlled: Hgb A1C = 6.4. Hold metformin during hospital stay. Insulin coverage as needed. FBS today = 114. Discharge on usual regimen. (6) Panhypopituitarism: Continue hormone replacement. (7) Chronic neck pain: Continue usual analgesics. (8) DVT prophylaxis: SQ enoxaparin. Ambulate. (9) Discharge planning issues: Discharge to home. Family Medicine follow-up with Dr. Rain. Subjective Recheck for pneumonia. Patient seen in their room around 10:10. Feels much better. Cough and dyspnea improved. Cough nonproductive. No fever. Ambulating without difficulty. Review of Systems: Constitutional- no fever. Cardiac- no chest pain. Pulmonary- as noted above. GI- no nausea, vomiting, diarrhea, melena, hematochezia. - no urinary symptoms. Otherwise, as noted above. Physical Exam Constitutional: no acute distress Respiratory: no respiratory distress Auscultation: + wheezes (minimal) Cardiovascular: Rate/Rhythm: regular rate and regular rhythm Vessels: no JVD Extremities: no calf tenderness and no edema Gastrointestinal (Abdomen): normal bowel sounds, soft, nontender, no hepatosplenomegaly Skin: no rashes, warm and dry Psychiatric: Orientation: alert and oriented x 3 Results & Data Vital Signs (Past 12 Hours) Vital Signs Temp Pulse Pulse Resp BP BP Pulse Ox 04/08/19 07:29 69 04/08/19 07:23 36.4 C L 73 18 131/66 98 04/08/19 03:56 36.5 C 69 18 112/57 L 95 04/07/19 23:12 96 H 04/07/19 23:00 36.5 C 70 18 103/56 L 95 Laboratory Results Laboratory Results - last 24 hr 04/07/19 04/07/19 04/07/19 11:41 16:32 20:08 Creatinine Est Cr Clr Drug Dosing Est GFR ( Amer) Est GFR (Non-Af Amer) POC Glucose 94 90 144 H 04/08/19 04/08/19 06:36 07:41 Creatinine 0.83 D Est Cr Clr Drug Dosing 91.1 Est GFR ( Amer) 108.5 Est GFR (Non-Af Amer) 93.6 POC Glucose 114 H
--- NOTE | 2019-04-08 19:36 | Discharge Summary ---
Date of Service Date of Admission: 04/06/19 Date of Discharge: 04/08/19 Admission HPI Per Admitting Provider This is a 63yo M with a PMH of chronic neck pain on narcotics, pituitary tumor (s/p excision in March 2017), HTN, HLD, acquired hypothyroidism, history of TIAs, opioid induced constipation and other medical problems listed below who presents with cough and generalized weakness x 2 weeks. Patient states that he developed a persistent dry cough a few weeks ago as well as subjective fever and chills. Has had decreased appetite and a reported 10 lb weight loss in past 2 weeks. Denies any shortness of breath, wheezing or hemoptysis. Was seen in the ED on March 31 for generalized weakness and URI symptoms and was started on a 7-day course of Augmentin. Feels generally weak today, with chills and lower back spasms. Has had nausea for the past few days with some associated dry heaving. Denies any lightheadedness, headache, chest pain, palpitations, vomiting, abdominal pain, dysuria or diarrhea. Has ongoing chronic neck problems for which he is on scheduled morphine 30mg twice daily, Percocet 10mg Q12H PRN, Gabapentin 400mg TID, Amitriptyline 75mg HS and Zanaflex 8mg Q8H PRN. Follows with pain management and was already recently started on Topamax 25mg BID for pain control. Did not take any of his morphine or Percocet since yesterday morning. Also with chronic constipation. Chest CTA shows patchy bibasilar ground glass and consolidative opacities within an upper lung zone prominent distribution is suggestive of multifocal pneumonia. There are a few scattered solid pulmonary nodules noted bilaterally measuring up to 5 mm which may also be on an infectious or inflammatory basis. Admission Exam Per Admitting Provider General Appearance: WD/WN, in acute distress, cooperative Head: normocephalic, atraumatic Eyes: normal inspection, PERRL, EOMI ENT: hearing grossly normal, pharynx normal (dry mucous membranes) Neck: supple, no JVD, no adenopathy Respiratory/Chest: lungs clear to auscultation. No wheezes, rales or rhonci. No respiratory distress or accessory muscle use Cardiovascular: tachycardic rate, rhythm, no murmur, normal peripheral pulses Abdomen/GI: normal bowel sounds, soft, non-tender to palpation Extremities/Musculoskelatal: normal inspection, no calf tenderness, normal capillary refill, no pedal edema Neurologic/Psych: alert, anxious mood/affect, oriented x 3 Skin: normal color, warm/dry Principal Diagnosis multifocal pneumonia, community acquired OTHER ACUTE / NEW DIAGNOSES: pulmonary nodules Discharge Data Allergies Allergy/AdvReac Type Severity Reaction Status Date / Time No Known Allergies Allergy U Verified 04/06/19 08:26 Consultations 04/06/19 09:44 ED Decision to Admit Stat 04/06/19 12:19 Consult Case Management - Discharge Planning Routine Consult Pulmonology Routine Ordered Studies 04/06/19 07:13 CT abd pelvis IV con only Stat CT angio chest PE protocol Stat Hospital Course (1) Multifocal pneumonia: Presented with cough and malaise. Chest x-ray did not show any infiltrates, but CTA chest demonstrated infiltrates in bilateral upper lobes, RML, bilateral lower lobes. Multilobar pneumonia, community acquired. Blood cultures obtained. Initially received IV piperacillin / tazobactam + doxycycline, then IV ampicillin / sulbactam + doxy. Pulmonary Medicine consulted. Steroids added to regimen. Blood cultures remained negative. Recently completed course of amoxicillin / clavulanic acid. Discharged on levofloxacin 750 mg PO daily to complete course of therapy + prednisone taper. (2) Pulmonary nodules: Multiple pulmonary nodules measuring 4-5 mm noted on CTA chest. Follow-up per Pulmonary Medicine. (3) Hypertension: Continue atenolol and lisinopril. (4) GERD (gastroesophageal reflux disease): Continue PPI. (5) Diabetes mellitus type 2, controlled: Hgb A1C = 6.4. Held metformin during hospital stay. Insulin coverage as needed. FBS day of discharge was 114. Discharge on usual regimen. (6) Panhypopituitarism: Continue hormone replacement. (7) Chronic neck pain: Continue usual analgesics. (8) DVT prophylaxis: SQ enoxaparin. Ambulated. (9) Discharge planning issues: Discharged to home. Family Medicine follow-up with Dr. Rain. Total Time Total Time Spent Total Time Spent (In Minutes): 45 Discharge Plan Discharge Items Patient Disposition: Home - Self-Care Reason For Visit: pneumonia Discharge Diagnosis: pneumonia small spots in lungs Condition: Good Discharge Goals: Improve disease control Activity: As commented below Activity Comment: gradually increase activity as tolerated Non-emergency contact: Primary Care Provider and Hospitalist Call non-emergency contact if: you have any medication questions, your symptoms worsen and you have a fever Follow-up/Referrals: Ryne Medrano MD [Physician] - (Please call office for appointment.) Johnathan Rain MD [Primary Care Provider] - (Office will contact you with appointment. Please call me if you do not hear from them in 2 days.) Diet: Carb Consistent or DM2 and Heart Healthy Addtl Provider Instructions: MEDICATION CHANGES: Take levofloxacin (Levaquin) 750 mg daily for 7 days. Hold sulfamethoxazole / trimethoprim while taking levofloxacin. Prednisone taper: 40 mg daily for 2 days 30 mg daily for 2 days 20 mg daily for 2 days 10 mg daily for 2 days then resume usual dose of 5 mg daily SUMMARY OF TEST RESULTS: CT scan showed pneumonia and small spots in lungs. Blood cultures were negative (no bacteria grew). RECOMMENDATIONS FOR FOLLOW-UP: The spots in your lungs were small. They are probably not serious, but should be followed. Dr. Medrano will arrange for a follow-up CT scan of chest. OTHER INSTRUCTIONS: Seek medical attention if you have: * temperature above 101 * chest pain or trouble breathing * abdominal pain, nausea, vomiting * diarrhea, dark stools or bloody stools * any unanswered questions or concerns Call [phone] if symptoms are severe. Please take good care of yourself. Call if you have any questions or problems. My cell # is [phone]. You can also reach a [facility] hospitalist on duty at [facility] 24 hours a day by calling [phone]. Prescriptions: New levofloxacin 750 mg tablet 750 mg PO DAILY 7 Days Qty: 7 RF: 0 prednisone 10 mg tablet See Rx Instructions .ROUTE .COMPLEX Qty: 20 RF: 0 Continued gabapentin 400 mg capsule 400 mg PO TID RF: 0 amitriptyline 75 mg tablet 75 mg PO HS RF: 0 morphine 30 mg tablet extended release 30 mg PO BID RF: 0 oxycodone-acetaminophen [Percocet] 10-325 mg Tablet 1 tab PO Q12 PRN (Reason: Pain) RF: 0 atenolol 25 mg Tablet 25 mg PO BID RF: 0 promethazine 25 mg Tablet 25 mg PO Q6H PRN (Reason: Unknown) RF: 0 amlodipine 10 mg tablet 10 mg PO QAM RF: 0 atorvastatin 80 mg tablet 80 mg PO QAM RF: 0 dicyclomine 10 mg capsule 10 mg PO TID RF: 0 clopidogrel 75 mg tablet 75 mg PO QAM RF: 0 pantoprazole 40 mg tablet,delayed release (DR/EC) 40 mg PO BID RF: 0 lactulose 10 gram/15 mL solution 15 ml PO QPM PRN (Reason: Constipation) RF: 0 tizanidine 4 mg tablet 8 mg PO Q8 PRN (Reason: Muscle Spasm) RF: 0 Excedrin Extra Strength 250-250-65 mg Tablet 2 tab PO BID RF: 0 metformin 500 mg Tablet 500 mg PO QAM RF: 0 mometasone 50 mcg/actuation spray,non-aerosol 2 spray intranasal BID RF: 0 azelastine 137 mcg (0.1 %) aerosol,spray 2 spray intranasal BID RF: 0 prednisone 5 mg tablet 5 mg PO QAM RF: 0 topiramate 25 mg tablet 25 mg PO BID RF: 0 lisinopril 10 mg tablet 10 mg PO QAM RF: 0 docusate sodium [Colace] 100 mg Capsule 100 mg PO BID RF: 0 testosterone cypionate 200 mg/mL oil 200 mg subcut UD RF: 0 duloxetine 60 mg capsule,delayed release(DR/EC) 60 mg PO QAM RF: 0 sulfamethoxazole-trimethoprim 400-80 mg Tablet 1 tab PO BID RF: 0 clobetasol 0.05 % ointment 1 applic topical BID RF: 0 clotrimazole [Lotrimin AF] 1 % Cream 1 applic TOPICAL BID RF: 0 ibuprofen-diphenhydramine cit [Ibuprofen PM] 200-38 mg Tablet 2 cap PO HS PRN (Reason: Pain) RF: 0 levothyroxine 100 mcg tablet 100 mcg PO DAILY RF: 0 Stand-Alone Forms: [facility]/Other Patient Handouts: Levofloxacin Oral tablet Discharge Orders: Discharge Order (Routine); Ordered 04/08/19 Ordered By: Johnathan Ware Admission Data Admit Date/Time: 04/06/19 11:00 Attending Provider: Johnathan Ware Admit Provider: Genet Matthews Primary Care Provider: Johnathan Rain Other Providers: Ryne Medrano ; Roly Cruz ; Salome Alex Service: Telemetry Medical Other Interventions: Discharge Summary Assessment (RN) Last Done: 04/08/19 12:53 DC Date/Time DO NOT enter until pt leaves facility: 04/08/19 13:53
[2019-04-09 14:37] LABS: Hydrocodone Urine NEGATIVE NG/ML (CUTOFF=50); Hydromor Urine NEGATIVE NG/ML (CUTOFF=50); Morphine Urine 1080 NG/ML (CUTOFF=50); Norhydrocodone Conf Ur NEGATIVE NG/ML (CUTOFF=50); Noroxycodone Urine 183 NG/ML (CUTOFF=50); Oxycodone Urine NEGATIVE NG/ML (CUTOFF=50)
[2019-04-10 14:38] LABS: Anaplasma phagocytophila IgM <1:20 (<1:20); Ehrlichia chaff IgG Ab <1:64 (<1:64); Ehrlichia chaff IgM Ab <1:20 (<1:20)
[2019-04-10 23:18] LABS: Legionella pneumoph IgM, IFA <1:256 TITER; Mycoplasma pneumoniae Ab, IgG 1.87 (<=0.90); Mycoplasma pneumoniae Ab, IgM 14 U/mL (<770)
== END 2019-04-08 13:53 | disposition home or self-care (01) | DRG 194 ==
LOC: ED 06:54 → SUATTDRO 11:00 → 2W 11:00

== ENCOUNTER 2020-03-08 21:24 | Observation (INO) ==
[2020-03-08] MEDS ORDERED: MoRPHine SULFATE 4 MG/ML 1 ML CARP\\VIAL IV STA (21:29)
[2020-03-08] MEDS ORDERED: ONDANSETRON INJ 2 MG/ML 2 ML VIAL IV STA (21:29)
[2020-03-08 21:59] LABS: Basophils # (auto) 0.03 K/uL (0-0.2); Basophils % (auto) 0.3 %; Eosinophils # (auto) 0.29 K/uL (0-0.5); Eosinophils % (auto) 2.7 %; Hematocrit (blood only) 55.7 % (42-52); Hemoglobin 19.1 g/dL (14.0-18.0); Immature Granulocytes # (auto) 0.02 K/uL (0.00-0.02); Immature Granulocytes % (auto) 0.2 %; Lymphocytes # (auto) 1.79 K/uL (1.2-3.4); Lymphocytes % (auto) 16.5 %; Mean Corpuscular Volume 87.6 fL (80-100); Mean Platelet Volume 8.9 fL (7.4-10.4); Monocytes % (auto) 5.5 %; Neutrophils # (auto) 8.13 K/uL (1.4-6.5); Neutrophils % (auto) 74.8 %; Platelet Count 251 K/uL (130-400); RDW Coefficient of Variation 13.4 % (11.5-14.5); RDW Standard Deviation 42.8 fL (36.4-46.3); Red Blood Count 6.36 M/uL (4.7-6.1); White Blood Count 10.86 K/uL (4.8-10.8)
[2020-03-08 22:02] LABS: Mean Corpuscular Hgb Conc 34.3 g/dL (32-36)
[2020-03-08] MEDS ORDERED: IOVERSOL 100ml IV PRN (22:14)
[2020-03-08 22:17] LABS: iSTAT Creatinine 0.8 mg/dl (0.6-1.3); iSTAT Ionized Calcium 1.16 mmol/l (1.12-1.32); iSTAT Potassium 3.8 mmol/L (3.3-5.0)
[2020-03-08 22:18] LABS: Alanine Aminotransferase 36 U/L (12-78); Aspartate Aminotransferase 28 U/L (15-37); BUN Creatinine Ratio 17.1 (10-20); Blood Urea Nitrogen 17 mg/dl (7-18); Calcium 9.5 mg/dl (8.5-10.1); Carbon Dioxide 27 mmol/L (21-32); Chloride 106 mmol/L (98-107); Creatinine Clr Calc Pharmacy 74.6 ml/min; Est GFR (African American) 91.8; Est GFR (Non-African American) 79.2; Glucose 129 mg/dl (70-99); Lipase 106 U/L (73-393); Potassium 3.8 mmol/L (3.5-5.1); Sodium 141 mmol/L (136-145)
[2020-03-08 22:21] LABS: Albumin Globulin Ratio 1.2 (0.9-2); Alkaline Phosphatase 124 U/L (45-117); Bilirubin,Total 0.3 mg/dl (0.2-1); Globulin 3.4 gm/dl (2.5-4.0); Total Protein 7.4 gm/dl (6.4-8.2)
--- NOTE | 2020-03-08 22:33 | CT Scan Report ---
ABDOMEN AND PELVIS CT WITH IV CONTRAST CT DOSE: 382.99 mGy.cm HISTORY: Generalized abdominal pain. TECHNIQUE: Multiaxial CT images of the abdomen and pelvis were performed following the use of intrave nous contrast. A dose lowering technique was utilized adhering to the principles of ALARA. COMPARISON STUDY: Abdomen and pelvis CT 04/06/2019. FINDINGS: Stable 3 mm nodule within the lingula on image 37. No pneumoperitoneum. No pneumatosis. No suspicious lytic are blastic osseous lesions. The liver, adrenal glands, and pancreas are unremarkabl e. A single subcentimeter hypodense lesion within the spleen. This remains stable and is likely benig n. There are few subcentimeter hypodense lesions within the kidneys which are technically too small t o characterize but also remain stable. No hydronephrosis. No retroperitoneal lymphadenopathy. Normal caliber abdominal aorta containing mild calcified plaque. The gallbladder distention has improved. No gallbladder wall thickening. Normal bladder. The prostate gland remains enlarged. A few mildly dilat ed fluid-filled loops of small bowel within the left lower quadrant. This could represent a mild ente ritis or low-grade partial small bowel obstruction. No bowel wall thickening. Normal appendix. Modera te well-formed stool seen within the colon. IMPRESSION: 1. A few mildly dilated fluid-filled loops of small bowel within the left lower quadrant. This could be due to a low-grade partial small bowel obstruction or enteritis. 2. No bowel wall thickening. 3. Normal appendix. 4. Prostatomegaly. ACT 112: Negative or not required by law. Electronically signed by: Ty Bo M.D. 03/08/2020 10:31 PM
--- NOTE | 2020-03-08 22:48 | Emergency Department Note ---
Impression & Plan Abdominal pain, Enteritis ED Provider Note NAME: SURENDRA CHEN AGE: 64 SEX: M : 1955 ARRIVES VIA: Walk-In INFORMANT: Patient, ED PROVIDER(S): Darrion Damon MD Chief Complaint: Abdominal pain HPI: Patient does present with abdominal pain. Patient states is been ongoing for approximately 1 month. More localized to the right abdomen. Describes it as sharp and constant. Patient states it has been worse over the last 24 hours. He has had associated nausea but without vomiting. Denies fevers or chills. Patient does not present with cough, fevers, chills, coronavirus contacts, coronavirus testing, or recent travel. Patient states that he has had bowel movements and is urinating without any dysuria hematuria or hematochezia. Patient did try medications at home but has not found relief. ROS: See HPI for pertinent positives and negatives. A total of 10 systems were reviewed and otherwise negative. Past medical history: See below Surgical history: See below Social history: See below Physical Exam: GENERAL: Nontoxic, mildly uncomfortable in appearance. EYE EXAM: Normal conjunctiva. PERRL, no anisocoria and EOM's grossly intact w/o pain. NECK: Supple, no nuchal rigidity, no adenopathy, non-tender. No signs of meningismus. LUNGS: Clear to auscultation. Normal chest wall mechanics. HEART: NSR, no MRG. ABDOMEN: Abdomen soft, mild right-sided abdominal discomfort but without peritonitis, negative obturator's and psoas, normo-active bowel sounds, no masses, no rebound or guarding. BACK: No CVA TTP. SKIN: No rashes and no bruising. UPPER EXTREMITIES: Upper extremities are grossly normal. LOWER EXTREMITIES: Grossly normal, no edema. NEURO EXAM: A&O x3, cranial nerves II-XII grossly intact, normal speech, moves all 4 extremities on command w/o issue. Differential diagnoses: Appendicitis, testicular torsion, infections, diverticulitis, UTI, obstruction, mesenteric ischemia, aortic pathology, inflammatory bowel disease, renal colic, PUD, pancreatitis, biliary pathology, hernia, volvulus, constipation, as well as other pathologies. Course: Patient was seen and evaluated the bedside. Full history physical exam was performed. EKG: None Imaging Studies: Radiology results as stated below per my review in the radiologist's interpretation: ABDOMEN AND PELVIS CT WITH IV CONTRAST CT DOSE: 382.99 mGy.cm HISTORY: Generalized abdominal pain. TECHNIQUE: Multiaxial CT images of the abdomen and pelvis were performed following the use of intravenous contrast. A dose lowering technique was utilized adhering to the principles of ALARA. COMPARISON STUDY: Abdomen and pelvis CT 04/06/2019. FINDINGS: Stable 3 mm nodule within the lingula on image 37. No pneumoperitoneum. No pneumatosis. No suspicious lytic are blastic osseous lesions. The liver, adrenal glands, and pancreas are unremarkable. A single subcentimeter hypodense lesion within the spleen. This remains stable and is likely benign. There are few subcentimeter hypodense lesions within the kidneys which are technically too small to characterize but also remain stable. No hydronephrosis. No retroperitoneal lymphadenopathy. Normal caliber abdominal aorta containing mild calcified plaque. The gallbladder distention has improved. No gallbladder wall thickening. Normal bladder. The prostate gland remains enl arged. A few mildly dilated fluid-filled loops of small bowel within the left lower quadrant. This could represent a mild enteritis or low-grade partial small bowel obstruction. No bowel wall thickening. Normal appendix. Moderate well- formed stool seen within the colon. IMPRESSION: 1. A few mildly dilated fluid-filled loops of small bowel within the left lower quadrant. This could be due to a low-grade partial small bowel obstruction or enteritis. 2. No bowel wall thickening. 3. Normal appendix. 4. Prostatomegaly. ACT 112: Negative or not required by law. Electronically signed by: Ty Bo M.D. 03/08/2020 10:31 PM Dictated: 03/08/202221 Transcribed: 03/08/202221 MDM: Patient was seen in al at the bedside. The patient was complaining some right-sided lower abdominal discomfort. Patient did have blood work completed along with a CT of the abdomen pelvis. Blood work shows virtually normal white count. The patient does have an elevated hemoglobin. Believe the patient may have an element of dehydration. Patient's kidney function is unremarkable. Borderline elevated blood glucose. Patient's LFTs and lipase unremarkable. Troponin is not detectable. CT of the a.m. abdomen pelvis shows possible small bowel obstruction versus enteritis. The patient is had recent bowel movements passing gas. Patient also does not have left lower quadrant pain. Patient did get additional rounds of pain medication with the patient was not feeling improved so I did speak with the on-call hospitalist who agreed to further evaluate treat the patient. Patient was admitted to the [facility] service under Dr. Weiss. Past Med/Surg History Medical History Anxiety (Chronic) BPH (benign prostatic hyperplasia) (Chronic) Chronic neck pain (Chronic) Chronic steroid use Diabetes mellitus, type 2 GERD (gastroesophageal reflux disease) (Chronic) History of TIA (transient ischemic attack) (Chronic) X2-->"05/2014" & 06/2017. TAKING PLAVIX. Hyperlipidemia (Chronic) Hypertension (Chronic) Hypothyroidism (Chronic) Nausea and vomiting after administration of anesthetic agent On anticoagulant therapy plavix daily Peptic ulcer disease (Chronic) H/O Surgical History Fusion of spine (Chronic) CERVICAL AREA. UNSURE OF THE LEVELS. LIMITED ROM ALL DIRECTIONS-EASILY CAUSES NECK SPASMS. HAS BEEN INTUBATED SINCE WITHOUT ISSUES. H/O Achilles tendon repair (Chronic) x3--RIGHT FOOT H/O elbow surgery (Chronic) RIGHT ELBOW BONE SPUR REMOVAL H/O shoulder surgery (Chronic) LEFT SHOULDER BONE SPUR REMOVAL H/O: pituitary tumor (Chronic) BENIGN TUMOR REMOVED History of colonoscopy History of esophagogastroduodenoscopy (EGD) History of nasal septoplasty (Chronic) History of tonsillectomy (Chronic) S/P LASIK surgery of both eyes (Chronic) S/P UPPP (uvulopalatopharyngoplasty) (Chronic) Family History Uncle Family history of diabetes mellitus Other Hypertension No family history of adverse response to anesthesia Social History Preferred Language: [place] Communication Ability: Effective Visual Impairment: No Limitations Hearing Ability: Normal Senior Caregiver Required: No Beliefs That Will Affect Care: None marital status: Single Current Living Situation: Alone Current Living Situation Comment: DOG Feels Safe at Home: Yes Smoking Status: Never smoker Second Hand Exposure: Yes (father smoked) ; Hx Alcohol Use: No Hx Substance Use: No Allergies Allergies Allergy/AdvReac Type Severity Reaction Status Date / Time No Known Allergies Allergy U Verified 03/08/20 23:11 Home Meds Home Medications Medication Instructions Recorded Confirmed amitriptyline 75 mg PO HS 08/16/18 03/08/20 morphine 30 mg PO BID 08/16/18 03/08/20 oxycodone-acetaminophen [Percocet] 1 tab PO Q4 PRN 08/16/18 03/08/20 promethazine 25 mg PO Q6H PRN 08/16/18 03/08/20 atorvastatin 80 mg PO QAM 09/12/18 03/08/20 clopidogrel 75 mg PO QAM 09/12/18 03/08/20 pantoprazole 40 mg PO BID 09/12/18 03/08/20 tizanidine 8 mg PO Q8 PRN 09/12/18 03/08/20 gabapentin 400 mg capsule 400 mg PO TID 09/19/18 03/08/20 Excedrin Extra Strength 2 tab PO QAM 09/21/18 03/08/20 metformin 500 mg PO QAM 12/25/18 03/08/20 azelastine 2 spray INTRANASAL BID PRN 03/31/19 03/08/20 mometasone 2 spray INTRANASAL BID 03/31/19 03/08/20 duloxetine 60 mg PO QAM 04/06/19 03/08/20 lisinopril 10 mg PO QAM 04/06/19 03/08/20 testosterone cypionate 200 mg SUBCUT UD 04/06/19 03/08/20 topiramate 50 mg PO HS 04/06/19 03/08/20 levothyroxine 100 mcg PO QAM 04/08/19 03/08/20 propranolol 10 mg tablet 10 mg PO TID 09/24/19 03/08/20 Excedrin Pm Headache 2 tab PO HS 10/18/19 03/08/20 clobetasol 1 applic TOPICAL BID PRN 10/18/19 03/08/20 prednisone 5 mg PO Q OTHER DAY 10/18/19 03/08/20 amlodipine [Norvasc] 2.5 mg PO DAILY 03/08/20 03/08/20 bzgkjif-rtvntmvjcstsx-ovhslseg 2 tab PO .Q AFTERNOON PRN 03/08/20 03/08/20 [Excedrin Extra Strength] clindamycin phosphate 1 applic TOPICAL DAILY 03/08/20 03/08/20 dicyclomine 10 mg PO TID 03/08/20 03/08/20 Previous Rx's Medication Instructions Recorded sucralfate 1 gram tablet 1 gm PO ACHS #40 tab 02/25/20 Results & Data (ED) Vital Signs Vital Signs - 24 hr 03/08/20 21:25 03/08/20 23:24 03/09/20 01:00 Temperature Source Oral Pulse Rhythm Regular Pulse Strength Normal Respiratory Rate 20 Respiratory Effort / Characteristics Non-Labored Spontaneous Respiratory Depth Normal Respiratory Pattern Regular Blood Pressure 146/98 H Blood Pressure [Left Arm] 138/67 137/108 H Blood Pressure Mean 114 Blood Pressure Mean [Left Arm] 90 117 Blood Pressure Position Lying Pulse Oximetry 99 Oxygen Delivery Method Room Air Sepsis Recent Fever Within 48 Hours No Sepsis New/Unexplained Change in Mental Status No Sepsis Action Taken by Nursing No Action Required Home Medications Current Medication List: was personally reviewed by me Laboratory Data Attestation: I reviewed the patient's lab results. Result diagrams: 03/08/20 21:50 03/08/20 21:50 Lab Results 03/08/20 03/08/20 03/08/20 Range/Units 21:50 21:50 22:04 WBC 10.86 H (4.8-10.8) K/uL RBC 6.36 H (4.7-6.1) M/uL Hgb 19.1 H (14.0-18.0) g/dL POC Hgb 19.0 H (14.0-18.0) g/dl Hct 55.7 H (42-52) % POC Hct 56 H (42-52) % MCV 87.6 (80-100) fL MCH 30.0 (25-34) pg MCHC 34.3 (32-36) g/dL RDW Std Deviation 42.8 (36.4-46.3) fL RDW Coeff of Neida 13.4 (11.5-14.5) % Plt Count 251 (130-400) K/uL MPV 8.9 (7.4-10.4) fL Immature Gran % (Auto) 0.2 % Neut % (Auto) 74.8 % Lymph % (Auto) 16.5 % [place] % (Auto) 5.5 % Eos % (Auto) 2.7 % Baso % (Auto) 0.3 % Immature Gran # (Auto) 0.02 (0.00-0.02) K/uL Neut # (Auto) 8.13 H (1.4-6.5) K/uL Lymph # (Auto) 1.79 (1.2-3.4) K/uL [place] # (Auto) 0.60 H (0.11-0.59) K/uL Eos # (Auto) 0.29 (0-0.5) K/uL Baso # (Auto) 0.03 (0-0.2) K/uL POC Sodium 142 (135-144) mmol/L Sodium 141 (136-145) mmol/L POC Potassium 3.8 (3.3-5.0) mmol/L Potassium 3.8 (3.5-5.1) mmol/L POC Chloride 104 (101-112) mmol/L Chloride 106 (98-107) mmol/L Carbon Dioxide 27 (21-32) mmol/L POC Total CO2 25 (24-31) mmol/L Anion Gap 9.0 (3-11) POC Anion Gap 18.0 (16-25) mmol/L POC BUN 17 (7-18) mg/dl BUN 17 (7-18) mg/dl Creatinine 1.00 (0.6-1.4) mg/dl POC Creatinine 0.8 (0.6-1.3) mg/dl Est Cr Clr Drug Dosing 74.6 ml/min Est GFR ( Amer) 91.8 Est GFR (Non-Af Amer) 79.2 BUN/Creatinine Ratio 17.1 (10-20) Glucose 129 H (70-99) mg/dl POC Glucose (other) 123 H (70-99) mg/dl Calcium 9.5 (8.5-10.1) mg/dl POC Ioniz Calcium Rhina 1.16 (1.12-1.32) mmol/l Magnesium 2.3 (1.8-2.4) mg/dl Total Bilirubin 0.3 (0.2-1) mg/dl AST 28 (15-37) U/L ALT 36 (12-78) U/L Alkaline Phosphatase 124 H (45-117) U/L Troponin I < 0.015 (0-0.045) ng/ml Total Protein 7.4 (6.4-8.2) gm/dl Albumin 4.0 (3.4-5.0) gm/dl Globulin 3.4 (2.5-4.0) gm/dl Albumin/Globulin Ratio 1.2 (0.9-2) Lipase 106 (73-393) U/L TSH 0.804 (0.300-4.500) uIu/ml Administered Medications Ioversol (Optiray 320 100ml) 95 ml IV ONCE PRN PRN Reason: Interaction Checking Stop: 03/12/20 22:13 Last Admin: 03/08/20 22:15 Dose: 95 ml Documented by: [id number] Discontinued Medications Dicyclomine HCl (Bentyl) 20 mg IM NOW ONE Stop: 03/08/20 22:59 Last Admin: 03/08/20 23:26 Dose: 20 mg Documented by: [id number] Fentanyl Citrate (Fentanyl Citrate) 50 mcg IV NOW STA Stop: 03/08/20 22:59 Last Admin: 03/08/20 23:27 Dose: 50 mcg Documented by: [id number] Sodium Chloride (Nss 1000ml) 500 mls @ 999 mls/hr IV .Q31M ONE Stop: 03/08/20 23:28 Last Infusion: 03/09/20 00:05 Dose: 0 mls/hr Documented by: [id number] Admin: 03/08/20 23:27 Dose: 999 mls/hr Documented by: [id number] Metoclopramide HCl (Reglan) 10 mg IV NOW STA Stop: 03/08/20 22:59 Last Admin: 03/08/20 23:26 Dose: 10 mg Documented by: [id number] Morphine Sulfate (Morphine Sulfate) 4 mg IV NOW STA Stop: 03/08/20 21:30 Last Admin: 03/08/20 21:47 Dose: 4 mg Documented by: [id number] Morphine Sulfate (Morphine Sulfate) 4 mg IV NOW STA Stop: 03/09/20 01:40 Last Admin: 03/09/20 01:43 Dose: 4 mg Documented by: [id number] Ondansetron HCl (Zofran) 4 mg IV NOW STA Stop: 03/08/20 21:30 Last Admin: 03/08/20 21:47 Dose: 4 mg Documented by: [id number] Ondansetron HCl (Zofran) 4 mg IV NOW STA Stop: 03/09/20 01:40 Last Admin: 03/09/20 01:44 Dose: 4 mg Documented by: [id number] Blood Pressure Blood Pressure Findings: Elevated blood pressure Blood Pressure Disposition: elevated BP felt to be situational Discharge Plan Visit Data Chief Complaint: Abdominal Pain Stated Complaint: ABD PAIN ED Provider: Darrion Damon Discharge Problem: Abdominal pain, Enteritis Forms Stand Alone Forms: [facility] [employer] [place] Prescriptions Prescriptions: No Action gabapentin 400 mg capsule 400 mg PO TID RF: 0 sucralfate [Carafate] 1 gram tablet 1 gm PO ACHS Qty: 40 RF: 0 propranolol 10 mg tablet 10 mg PO TID RF: 0 amitriptyline 75 mg tablet 75 mg PO HS RF: 0 morphine 30 mg tablet extended release 30 mg PO BID RF: 0 oxycodone-acetaminophen [Percocet] 10-325 mg Tablet 1 tab PO Q4 PRN (Reason: Pain) RF: 0 promethazine 25 mg Tablet 25 mg PO Q6H PRN (Reason: Nausea) RF: 0 atorvastatin 80 mg tablet 80 mg PO QAM RF: 0 clopidogrel 75 mg tablet 75 mg PO QAM RF: 0 pantoprazole 40 mg tablet,delayed release (DR/EC) 40 mg PO BID RF: 0 tizanidine 4 mg tablet 8 mg PO Q8 PRN (Reason: Muscle Spasm) RF: 0 Excedrin Extra Strength 250-250-65 mg Tablet 2 tab PO QAM RF: 0 metformin 500 mg Tablet 500 mg PO QAM RF: 0 mometasone 50 mcg/actuation spray,non-aerosol 2 spray intranasal BID RF: 0 azelastine 137 mcg (0.1 %) aerosol,spray 2 spray intranasal BID PRN (Reason: Nasal Congestion) RF: 0 topiramate 25 mg tablet 50 mg PO HS RF: 0 lisinopril 10 mg tablet 10 mg PO QAM RF: 0 testosterone cypionate 200 mg/mL oil 200 mg subcut UD RF: 0 duloxetine 60 mg capsule,delayed release(DR/EC) 60 mg PO QAM RF: 0 levothyroxine 100 mcg tablet 100 mcg PO QAM RF: 0 Excedrin Pm Headache 2 tab PO HS RF: 0 prednisone 5 mg tablet 5 mg PO Q OTHER DAY RF: 0 clobetasol 0.05 % Ointment 1 applic TOPICAL BID PRN (Reason: Rash) RF: 0 amlodipine [Norvasc] 5 mg tablet 2.5 mg PO DAILY RF: 0 Excedrin Extra Strength 250-250-65 mg Tablet 2 tab PO .Q AFTERNOON PRN (Reason: HEADACHE/PAIN) RF: 0 clindamycin phosphate 1 % solution 1 applic TOPICAL DAILY RF: 0 dicyclomine 10 mg capsule 10 mg PO TID RF: 0 Discharge Problem: Abdominal pain Qualifiers: Abdominal location: right lower quadrant Qualified Code(s): R10.31 - Right lower quadrant pain
[2020-03-08] MEDS ORDERED: METOCLOPRAMIDE HCL INJ 5 MG/ML 2 ML VIAL IV STA (22:58)
[2020-03-08] MEDS ORDERED: DICYCLOMINE HCL 10 MG/ML 2 ML AMP/VIAL IM ONE (22:58)
[2020-03-08] MEDS ORDERED: SODIUM CHLORIDE 0.9% 1000ML 500 ML IV ONE (22:58)
[2020-03-08] MEDS ORDERED: fentaNYL citrate 100 MCG/2 ML VIAL IV STA (22:58)
[2020-03-09 01:03] LABS: Magnesium 2.3 mg/dl (1.8-2.4); Troponin I < 0.015 ng/ml (0-0.045)
[2020-03-09] MEDS ORDERED: ONDANSETRON INJ 2 MG/ML 2 ML VIAL IV STA (01:39)
[2020-03-09] MEDS ORDERED: MoRPHine SULFATE 4 MG/ML 1 ML CARP\\VIAL IV STA (01:39)
--- NOTE | 2020-03-09 02:06 | History & Physical Report ---
Date of Service March 09, 2020 Assessment & Plan (1) Abdominal pain: Secondary to viral enteritis hx IBS as per records Patient not septic. 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 Clear liquids for now, advance as tolerated Check UA ISS BG goal [id number], update hemoglobin A1c DVT prophylaxis per Lovenox subcu Full code Text document was generated using [employer] voice recognition software. It may contain grammatical or spelling errors. Kindly contact undersigned for clarification of any documentation item in question. History of Present Illness Chief Complaint: abdominal pain Primary Care Provider: Johnathan Rain MD History obtained from patient and records. 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 Last confinement March 2019 for multifocal pneumonia. 1 week history of achy central abdominal discomfort with nausea. No emesis. No fever, no chills. No change in bowel habits. Denies chest pain, S OB. Intractable discomfort at the ER. 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 Allergies Allergy/AdvReac Type Severity Reaction Status Date / Time No Known Allergies Allergy U Verified 03/08/20 23:11 Home Medications Home Medications Medication Instructions Recorded Confirmed Type amitriptyline 75 mg PO HS 08/16/18 03/08/20 History morphine 30 mg PO BID 08/16/18 03/08/20 History oxycodone-acetaminophen [Percocet] 1 tab PO Q4 PRN 08/16/18 03/08/20 History promethazine 25 mg PO Q6H PRN 08/16/18 03/08/20 History atorvastatin 80 mg PO QAM 09/12/18 03/08/20 History clopidogrel 75 mg PO QAM 09/12/18 03/08/20 History pantoprazole 40 mg PO BID 09/12/18 03/08/20 History tizanidine 8 mg PO Q8 PRN 09/12/18 03/08/20 History gabapentin 400 mg capsule 400 mg PO TID 09/19/18 03/08/20 History Excedrin Extra Strength 2 tab PO QAM 09/21/18 03/08/20 History metformin 500 mg PO QAM 12/25/18 03/08/20 History azelastine 2 spray INTRANASAL BID PRN 03/31/19 03/08/20 History mometasone 2 spray INTRANASAL BID 03/31/19 03/08/20 History duloxetine 60 mg PO QAM 04/06/19 03/08/20 History lisinopril 10 mg PO QAM 04/06/19 03/08/20 History testosterone cypionate 200 mg SUBCUT UD 04/06/19 03/08/20 History topiramate 50 mg PO HS 04/06/19 03/08/20 History levothyroxine 100 mcg PO QAM 04/08/19 03/08/20 History propranolol 10 mg tablet 10 mg PO TID 09/24/19 03/08/20 History Excedrin Pm Headache 2 tab PO HS 10/18/19 03/08/20 History clobetasol 1 applic TOPICAL BID PRN 10/18/19 03/08/20 History prednisone 5 mg PO Q OTHER DAY 10/18/19 03/08/20 History sucralfate 1 gram tablet 1 gm PO ACHS #40 tab 02/25/20 03/08/20 Rx amlodipine [Norvasc] 2.5 mg PO DAILY 03/08/20 03/08/20 History qweomjo-ifllerprysdde-gwcrqdqm 2 tab PO .Q AFTERNOON PRN 03/08/20 03/08/20 History [Excedrin Extra Strength] clindamycin phosphate 1 applic TOPICAL DAILY 03/08/20 03/08/20 History dicyclomine 10 mg PO TID 03/08/20 03/08/20 History Past Med/Surg History Medical History Anxiety (Chronic) BPH (benign prostatic hyperplasia) (Chronic) Chronic neck pain (Chronic) Chronic steroid use Diabetes mellitus, type 2 GERD (gastroesophageal reflux disease) (Chronic) History of TIA (transient ischemic attack) (Chronic) X2-->"05/2014" & 06/2017. TAKING PLAVIX. Hyperlipidemia (Chronic) Hypertension (Chronic) Hypothyroidism (Chronic) Nausea and vomiting after administration of anesthetic agent On anticoagulant therapy plavix daily Peptic ulcer disease (Chronic) H/O Surgical History Fusion of spine (Chronic) CERVICAL AREA. UNSURE OF THE LEVELS. LIMITED ROM ALL DIRECTIONS-EASILY CAUSES NECK SPASMS. HAS BEEN INTUBATED SINCE WITHOUT ISSUES. H/O Achilles tendon repair (Chronic) x3--RIGHT FOOT H/O elbow surgery (Chronic) RIGHT ELBOW BONE SPUR REMOVAL H/O shoulder surgery (Chronic) LEFT SHOULDER BONE SPUR REMOVAL H/O: pituitary tumor (Chronic) BENIGN TUMOR REMOVED History of colonoscopy History of esophagogastroduodenoscopy (EGD) History of nasal septoplasty (Chronic) History of tonsillectomy (Chronic) S/P LASIK surgery of both eyes (Chronic) S/P UPPP (uvulopalatopharyngoplasty) (Chronic) Family History Uncle Family history of diabetes mellitus Other Hypertension No family history of adverse response to anesthesia Social History Preferred Language: Macedonian Communication Ability: Effective Visual Impairment: No Limitations Hearing Ability: Normal Sourcing Specialist Required: No Beliefs That Will Affect Care: None marital status: Single Current Living Situation: Alone Current Living Situation Comment: DOG Other Information That Helps Us Care for You: No Feels Safe at Home: Yes Safety Concerns: Feels Safe At This Time Smoking Status: Never smoker Second Hand Exposure: Yes (father smoked) ; Hx Alcohol Use: No Hx Substance Use: No Review of Systems Review of Systems: As per HPI, all 10 systems reviewed, all other ROS negative Physical Exam Physical Exam: GENERAL: Comfortable, pleasant, no respiratory distress SKIN: Normal color, warm HEENT: Flushed face (chronic as per patient), pink palpebral conjunctivae, no ptosis, dry buccal mucosa NECK : Supple, no tenderness CHEST : CTA, no tenderness HEART : RRR, no obvious murmurs ABDOMEN: Some distention, minimal central abdominal tenderness EXTREMITIES : No LE swelling/tenderness, no other conspicuous deformities noted NEUROLOGIC : Coherent, no facial asymmetry, no other gross focality Results & Data Results & Data ([facility]) Vital Signs (Past 12 Hours) Vital Signs Resp BP BP Pulse Ox 03/09/20 01:00 137/108 H 03/08/20 23:24 138/67 03/08/20 21:25 20 146/98 H 99 Laboratory Results Laboratory Results WBC 10.86 K/uL (4.8-10.8) H 03/08/20 21:50 RBC 6.36 M/uL (4.7-6.1) H 03/08/20 21:50 Hgb 19.1 g/dL (14.0-18.0) H 03/08/20 21:50 POC Hgb 19.0 g/dl (14.0-18.0) H 03/08/20 22:04 Hct 55.7 % (42-52) H 03/08/20 21:50 POC Hct 56 % (42-52) H 03/08/20 22:04 MCV 87.6 fL (80-100) 03/08/20 21:50 MCH 30.0 pg (25-34) 03/08/20 21:50 MCHC 34.3 g/dL (32-36) 03/08/20 21:50 RDW Std Deviation 42.8 fL (36.4-46.3) 03/08/20 21:50 RDW Coeff of Neida 13.4 % (11.5-14.5) 03/08/20 21:50 Plt Count 251 K/uL (130-400) 03/08/20 21:50 MPV 8.9 fL (7.4-10.4) 03/08/20 21:50 Immature Gran % (Auto) 0.2 % 03/08/20 21:50 Neut % (Auto) 74.8 % 03/08/20 21:50 Lymph % (Auto) 16.5 % 03/08/20 21:50 [place] % (Auto) 5.5 % 03/08/20 21:50 Eos % (Auto) 2.7 % 03/08/20 21:50 Baso % (Auto) 0.3 % 03/08/20 21:50 Immature Gran # (Auto) 0.02 K/uL (0.00-0.02) 03/08/20 21:50 Neut # (Auto) 8.13 K/uL (1.4-6.5) H 03/08/20 21:50 Lymph # (Auto) 1.79 K/uL (1.2-3.4) 03/08/20 21:50 [place] # (Auto) 0.60 K/uL (0.11-0.59) H 03/08/20 21:50 Eos # (Auto) 0.29 K/uL (0-0.5) 03/08/20 21:50 Baso # (Auto) 0.03 K/uL (0-0.2) 03/08/20 21:50 POC Sodium 142 mmol/L (135-144) 03/08/20 22:04 Sodium 141 mmol/L (136-145) 03/08/20 21:50 POC Potassium 3.8 mmol/L (3.3-5.0) 03/08/20 22:04 Potassium 3.8 mmol/L (3.5-5.1) 03/08/20 21:50 POC Chloride 104 mmol/L (101-112) 03/08/20 22:04 Chloride 106 mmol/L (98-107) 03/08/20 21:50 Carbon Dioxide 27 mmol/L (21-32) 03/08/20 21:50 POC Total CO2 25 mmol/L (24-31) 03/08/20 22:04 Anion Gap 9.0 (3-11) 03/08/20 21:50 POC Anion Gap 18.0 mmol/L (16-25) 03/08/20 22:04 POC BUN 17 mg/dl (7-18) 03/08/20 22:04 BUN 17 mg/dl (7-18) 03/08/20 21:50 Creatinine 1.00 mg/dl (0.6-1.4) 03/08/20 21:50 POC Creatinine 0.8 mg/dl (0.6-1.3) 03/08/20 22:04 Est Cr Clr Drug Dosing 74.6 ml/min 03/08/20 21:50 Est GFR ( Amer) 91.8 03/08/20 21:50 Est GFR (Non-Af Amer) 79.2 03/08/20 21:50 BUN/Creatinine Ratio 17.1 (10-20) 03/08/20 21:50 Glucose 129 mg/dl (70-99) H 03/08/20 21:50 POC Glucose (other) 123 mg/dl (70-99) H 03/08/20 22:04 Calcium 9.5 mg/dl (8.5-10.1) 03/08/20 21:50 POC Ioniz Calcium Rhina 1.16 mmol/l (1.12-1.32) 03/08/20 22:04 Magnesium 2.3 mg/dl (1.8-2.4) 03/08/20 21:50 Total Bilirubin 0.3 mg/dl (0.2-1) 03/08/20 21:50 AST 28 U/L (15-37) 03/08/20 21:50 ALT 36 U/L (12-78) 03/08/20 21:50 Alkaline Phosphatase 124 U/L (45-117) H 03/08/20 21:50 Troponin I < 0.015 ng/ml (0-0.045) 03/08/20 21:50 Total Protein 7.4 gm/dl (6.4-8.2) 03/08/20 21:50 Albumin 4.0 gm/dl (3.4-5.0) 03/08/20 21:50 Globulin 3.4 gm/dl (2.5-4.0) 03/08/20 21:50 Albumin/Globulin Ratio 1.2 (0.9-2) 03/08/20 21:50 Lipase 106 U/L (73-393) 03/08/20 21:[address] abdomen pelvis: 1. A few mildly dilated fluid-filled loops of small bowel within the left lower quadrant. This could be due to a low-grade partial small bowel obstruction or enteritis. 2. No bowel wall thickening. 3. Normal appendix. 4. Prostatomegaly. (1) Abdominal pain Abdominal location: right lower quadrant Qualified Code(s): R10.31 - Right lower quadrant pain
[2020-03-09 02:14] LABS: Thyroid Stimulating Hormone 0.804 uIu/ml (0.300-4.500)
[2020-03-09] MEDS ORDERED: GLUCOSE 10 TABS/TUBE PO PRN (04:03)
[2020-03-09] MEDS ORDERED: GLUCOSE 40% GEL 15 GM TUBE PO PRN (04:03)
[2020-03-09] MEDS ORDERED: GLUCAGON FOR INJ 1 MG VIAL SQ PRN (04:03)
[2020-03-09] MEDS ORDERED: DEXTROSE 50% 50 ML SYRINGE IV PRN (04:03)
[2020-03-09] MEDS ORDERED: LACTATED RINGER'S 1,000 ML IV ONE (04:03)
[2020-03-09] MEDS ORDERED: CARBOHYDRATES FOR HYPOGLYCEMIA PO PRN (04:03)
[2020-03-09] MEDS ORDERED: PROMETHAZINE HCL 12.5 MG in SODIUM CHLORIDE 0.9% 50 ML IV PRN (04:03)
[2020-03-09] MEDS: KETOROLAC TROMETHAMINE 15 MG/ML VIAL IV PRN ×3 (04:43→20:45)
[2020-03-09] MEDS: ACETAMINOPHEN 325 MG TAB PO PRN ×2 (04:43→16:02)
[2020-03-09] MEDS: TIZANIDINE HCL 4 MG TABLET PO PRN ×2 (04:54→18:54)
[2020-03-09] MEDS: GABAPENTIN 400 MG CAP PO SCH ×4 (04:54→20:50)
[2020-03-09] MEDS: SUCRALFATE 1 GM TAB PO SCH ×5 (04:55→20:50)
[2020-03-09] MEDS: LEVOTHYROXINE SODIUM 100 MCG TABLET PO SCH (04:55)
[2020-03-09] MEDS: INSULIN ASPART 100 UNITS/ML 3 ML PEN SC SCH ×5 (05:14→20:57)
[2020-03-09 05:29] LABS: Basophils # (auto) 0.05 K/uL (0-0.2); Basophils % (auto) 0.4 %; Eosinophils # (auto) 0.27 K/uL (0-0.5); Eosinophils % (auto) 1.9 %; Hematocrit (blood only) 51.2 % (42-52); Hemoglobin 17.3 g/dL (14.0-18.0); Immature Granulocytes # (auto) 0.04 K/uL (0.00-0.02); Immature Granulocytes % (auto) 0.3 %; Lymphocytes # (auto) 1.79 K/uL (1.2-3.4); Lymphocytes % (auto) 12.6 %; Mean Corpuscular Hemoglobin 29.7 pg (25-34); Mean Corpuscular Hgb Conc 33.8 g/dL (32-36); Mean Corpuscular Volume 87.8 fL (80-100); Monocytes # (auto) 0.86 K/uL (0.11-0.59); Neutrophils # (auto) 11.21 K/uL (1.4-6.5); Neutrophils % (auto) 78.8 %; Platelet Count 278 K/uL (130-400); RDW Coefficient of Variation 13.4 % (11.5-14.5); RDW Standard Deviation 42.7 fL (36.4-46.3); Red Blood Count 5.83 M/uL (4.7-6.1); White Blood Count 14.22 K/uL (4.8-10.8)
[2020-03-09 06:03] LABS: BUN Creatinine Ratio 14.1 (10-20); Calcium 8.8 mg/dl (8.5-10.1); Creatinine Clr Calc Pharmacy 80.2 ml/min; Est GFR (African American) 100.2; Est GFR (Non-African American) 86.5; Potassium 3.8 mmol/L (3.5-5.1)
[2020-03-09] MEDS: OXYCODONE/ACETAMINOPHEN 10-325 TAB PO PRN ×3 (07:53→16:56)
[2020-03-09 08:23] LABS: Magnesium 2.2 mg/dl (1.8-2.4); Phosphorus 2.8 mg/dl (2.5-4.9)
[2020-03-09] MEDS: DULOXETINE HCL 60 MG CAP PO SCH (08:51)
[2020-03-09] MEDS: ATORVASTATIN 40 MG TAB PO SCH (08:51)
[2020-03-09] MEDS: lisinopriL 10 MG TAB PO SCH (08:53)
[2020-03-09] MEDS: CLOPIDOGREL BISULFATE 75 MG TAB PO SCH (08:53)
[2020-03-09] MEDS: AMLODIPINE BESYLATE 5 MG TAB PO SCH (08:54)
[2020-03-09] MEDS: PROPRANOLOL HCL 10 MG TAB PO SCH ×3 (08:55→20:55)
[2020-03-09] MEDS: PANTOprazole 40 MG TAB PO SCH ×2 (08:55→20:51)
[2020-03-09] MEDS ORDERED: predniSONE 5 MG TAB PO SCH (09:00)
[2020-03-09] MEDS: FLUTICASONE PROPIONATE NA SPR 16 GM BTL SCH (09:01)
[2020-03-09] MEDS: MoRPHine SULFATE CR 15 MG TABCR PO SCH ×2 (10:27→20:50)
[2020-03-09 10:55] LABS: Appearance Urine Clear (Clear); Bacteria Urine Automated Negative (Negative); Bilirubin Urine Negative (Negative); Blood Urine Trace (Negative); Color Urine Dark Yellow; Glucose Urine UA Negative (Negative); Ketones Urine Trace (Negative); Leukocyte Esterase Urine Negative (Negative); Nitrite Urine Negative (Negative); Protein Urine Negative (Negative); Specific Gravity Urine 1.041 (1.000-1.030); Urobilinogen Urine Negative (Negative); pH Urine 7.5 (4.5-7.5)
[2020-03-09 11:08] LABS: Estimated Average Glucose 131 mg/dl; Hemoglobin A1C 6.2 % (4.5-5.6)
[2020-03-09] MEDS: ENOXAPARIN INJ 30 MG/0.3 ML SYR SQ SCH (15:18)
[2020-03-09] MEDS: LACTATED RINGER'S 1,000 ML IV SCH (16:51)
[2020-03-09] MEDS ORDERED: TOPIRAMATE 50 MG TAB PO SCH (21:00)
[2020-03-09] MEDS ORDERED: AMITRIPTYLINE HCL 25 MG TAB PO SCH (21:00)
[2020-03-10] MEDS: OXYCODONE/ACETAMINOPHEN 10-325 TAB PO PRN ×2 (00:10→06:59)
[2020-03-10] MEDS: LACTATED RINGER'S 1,000 ML IV SCH ×2 (00:49→08:21)
[2020-03-10] MEDS: KETOROLAC TROMETHAMINE 15 MG/ML VIAL IV PRN ×2 (02:46→09:26)
[2020-03-10] MEDS: TIZANIDINE HCL 4 MG TABLET PO PRN ×2 (03:10→12:47)
[2020-03-10 05:25] LABS: Hematocrit (blood only) 42.3 % (42-52); Mean Corpuscular Hemoglobin 28.9 pg (25-34); Mean Corpuscular Hgb Conc 33.1 g/dL (32-36); Mean Corpuscular Volume 87.4 fL (80-100); Mean Platelet Volume 8.8 fL (7.4-10.4); Platelet Count 215 K/uL (130-400); RDW Coefficient of Variation 13.4 % (11.5-14.5); RDW Standard Deviation 43.2 fL (36.4-46.3); Red Blood Count 4.84 M/uL (4.7-6.1); White Blood Count 7.88 K/uL (4.8-10.8)
[2020-03-10 05:44] LABS: Albumin Level 2.9 gm/dl (3.4-5.0); BUN Creatinine Ratio 13.4 (10-20); Calcium 7.7 mg/dl (8.5-10.1); Creatinine Clr Calc Pharmacy 99.5 ml/min; Est GFR (African American) 112.4; Est GFR (Non-African American) 96.9; Potassium 3.4 mmol/L (3.5-5.1)
[2020-03-10 05:50] LABS: Albumin Globulin Ratio 1.2 (0.9-2); Bilirubin,Total 0.4 mg/dl (0.2-1); Globulin 2.5 gm/dl (2.5-4.0); Total Protein 5.4 gm/dl (6.4-8.2)
[2020-03-10] MEDS: LEVOTHYROXINE SODIUM 100 MCG TABLET PO SCH (07:00)
[2020-03-10] MEDS ORDERED: POTASSIUM PHOS 3 MMOL/1 ML INFUSION IV STA (07:51)
[2020-03-10] MEDS ORDERED: POTASSIUM CHLORIDE 20 MEQ TABCR PO STA (07:51)
[2020-03-10] MEDS: SUCRALFATE 1 GM TAB PO SCH ×2 (07:53→10:40)
--- NOTE | 2020-03-10 07:57 | Hospitalist Progress Note ---
Date of Service March 10, 2020 Assessment & Plan (1) Abdominal pain: Most likely secondary to viral enteritis hx IBS as per records Patient not septic. 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 Clear liquids for now, advance as tolerated ISS BG goal [id number], update hemoglobin A1c Patient admitted for observation, due to abdominal tenderness. Patient denies any change in bowel habits. Discussed this in detail. He actually says that he has bowel movement every day, no diarrhea. No blood in the stool. No difficulty with bowel movements at all. No change in color, or formation. No difficulty urinating no blood in the urine. Continues to pass flatus without difficulty. He was started on IV fluids on admission, continued throughout the night. White blood cell count normal/mildly elevated yesterday, likely due to chronic steroid use. Labs otherwise unremarkable. Obtained lactate yesterday, 1.4. Discussed with the patient CT findings and labs. Currently patient says that he feels better, his abdominal pain is not bothering him as much, he actually complains about his chronic neck pain. Discussed that he should follow-up with his primary care doctor, and if necessary with his wire weaver helper, Dr. Dahl. Regarding his neck pain, he is seen by primary care doctor, as well as pain management as outpatient. Recommend to stay on clear liquid diet for now, and advance slowly as tolerated Disposition: Plan to discharge home with close follow-up with his PCP and possibly GI, patient in agreement DVT prophylaxis per Lovenox subcu Full code Admission and Anticipated Discharge Date Admission Date: March 09, 2020 Subjective Patient admitted for observation, due to abdominal tenderness. Patient denies any change in bowel habits. Discussed this in detail. He actually says that he has bowel movement every day, no diarrhea. No blood in the stool. No difficulty with bowel movements at all. No change in color, or formation. No difficulty urinating no blood in the urine. Says he had mild nausea prior to admission. Continues to pass flatus without difficulty. He was started on IV fluids on admission, continued throughout the night. White blood cell count normal/mildly elevated yesterday, likely due to chronic steroid use. Labs otherwise unremarkable. Obtained lactate yesterday, 1.4. Discussed with the patient CT findings and labs. Replace electrolytes at this morning, mildly low due to IV fluids. Currently patient says that he feels better, his abdominal pain is not bothering him as much, he actually complains about his chronic neck pain. Discussed that he should follow-up with his primary care doctor, and if necessary with his wire weaver helper, Dr. Dahl. Regarding his neck pain, he is seen by primary care doctor, as well as pain management as outpatient. Review of Systems Review of Systems: All systems reviewed & are unremarkable except as noted in HPI & below Constitutional: no fever and no chills Respiratory: no cough and no dyspnea Cardiovascular: no chest pain, no dyspnea on exertion and no palpitations Gastrointestinal: + abdominal pain (Much improved but occasionally feels achy) Genitourinary: no dysuria Physical Exam Physical Exam: GENERAL: Elderly male sitting up in the chair, in no acute distress HEENT: Normocephalic, atraumatic, flushed face (chronic as per patient), pink palpebral conjunctivae, no ptosis, dry buccal mucosa NECK : Supple, no tenderness CHEST : Clear to auscultation bilaterally, no wheezing or rhonchi, no tenderness HEART : RRR, no obvious murmurs ABDOMEN: Normal bowel sounds, soft, mild distention, minimal central abdominal tenderness to palpation EXTREMITIES : No LE swelling/tenderness, moves extremities spontaneously SKIN: Warm, dry NEUROLOGIC : Alert and oriented x3, no facial asymmetry, speech fluent, moves extremities spontaneously Results & Data Results & Data ([facility]) Vital Signs (Past 12 Hours) Vital Signs Temp Pulse Resp BP BP Pulse Ox 03/10/20 07:07 36.3 C L 67 16 147/63 H 99 03/09/20 23:48 36.6 C 81 15 145/72 H 98 03/09/20 20:48 99 H 16 156/88 H 97 Laboratory Results 03/10/20 03/10/20 03/09/20 Range/Units 04:35 04:35 20:17 WBC 7.88 (4.8-10.8) K/uL RBC 4.84 (4.7-6.1) M/uL Hgb 14.0 D (14.0-18.0) g/dL Hct 42.3 (42-52) % MCV 87.4 (80-100) fL MCH 28.9 (25-34) pg MCHC 33.1 (32-36) g/dL RDW Std Deviation 43.2 (36.4-46.3) fL RDW Coeff of Neida 13.4 (11.5-14.5) % Plt Count 215 (130-400) K/uL MPV 8.8 (7.4-10.4) fL Sodium 143 (136-145) mmol/L Potassium 3.4 L (3.5-5.1) mmol/L Chloride 113 H (98-107) mmol/L Carbon Dioxide 24 (21-32) mmol/L Anion Gap 6.0 (3-11) BUN 10 (7-18) mg/dl Creatinine 0.75 (0.6-1.4) mg/dl Est Cr Clr Drug Dosing 99.5 ml/min Est GFR ( Amer) 112.4 Est GFR (Non-Af Amer) 96.9 BUN/Creatinine Ratio 13.4 (10-20) Glucose 98 (70-99) mg/dl POC Glucose 86 (70-99) mg/dl Estimat Average Glucose mg/dl Hemoglobin A1c (4.5-5.6) % Lactate (0.4-2.0) mmol/L Calcium 7.7 L (8.5-10.1) mg/dl Phosphorus 2.0 L (2.5-4.9) mg/dl Magnesium 2.0 (1.8-2.4) mg/dl Total Bilirubin 0.4 (0.2-1) mg/dl AST 22 (15-37) U/L ALT 23 (12-78) U/L Alkaline Phosphatase 85 (45-117) U/L Total Protein 5.4 L D (6.4-8.2) gm/dl Albumin 2.9 L (3.4-5.0) gm/dl Globulin 2.5 (2.5-4.0) gm/dl Albumin/Globulin Ratio 1.2 (0.9-2) Urine Color Urine Appearance (Clear) Urine pH (4.5-7.5) Ur Specific Hughson (1.000-1.030) Urine Protein (Negative) Urine Glucose (UA) (Negative) Urine Ketones (Negative) Urine Blood (Negative) Urine Nitrite (Negative) Urine Bilirubin (Negative) Urine Urobilinogen (Negative) Ur Leukocyte Esterase (Negative) Urine WBC (Auto) (0-5) /hpf Urine RBC (Auto) (0-4) /hpf U Hyaline Cast (Auto) (0-5) /lpf U Epithel Cells (Auto) (0-5) /lpf Urine Bacteria (Auto) (Negative) Hepatitis C Ab Screen (Neg) 03/09/20 03/09/20 03/09/20 Range/Units 17:35 17:17 17:15 WBC (4.8-10.8) K/uL RBC (4.7-6.1) M/uL Hgb (14.0-18.0) g/dL Hct (42-52) % MCV (80-100) fL MCH (25-34) pg MCHC (32-36) g/dL RDW Std Deviation (36.4-46.3) fL RDW Coeff of Neida (11.5-14.5) % Plt Count (130-400) K/uL MPV (7.4-10.4) fL Sodium (136-145) mmol/L Potassium (3.5-5.1) mmol/L Chloride (98-107) mmol/L Carbon Dioxide (21-32) mmol/L Anion Gap (3-11) BUN (7-18) mg/dl Creatinine (0.6-1.4) mg/dl Est Cr Clr Drug Dosing ml/min Est GFR ( Amer) Est GFR (Non-Af Amer) BUN/Creatinine Ratio (10-20) Glucose (70-99) mg/dl POC Glucose 74 63 L* 65 L* (70-99) mg/dl Estimat Average Glucose mg/dl Hemoglobin A1c (4.5-5.6) % Lactate (0.4-2.0) mmol/L Calcium (8.5-10.1) mg/dl Phosphorus (2.5-4.9) mg/dl Magnesium (1.8-2.4) mg/dl Total Bilirubin (0.2-1) mg/dl AST (15-37) U/L ALT (12-78) U/L Alkaline Phosphatase (45-117) U/L Total Protein (6.4-8.2) gm/dl Albumin (3.4-5.0) gm/dl Globulin (2.5-4.0) gm/dl Albumin/Globulin Ratio (0.9-2) Urine Color Urine Appearance (Clear) Urine pH (4.5-7.5) Ur Specific Hughson (1.000-1.030) Urine Protein (Negative) Urine Glucose (UA) (Negative) Urine Ketones (Negative) Urine Blood (Negative) Urine Nitrite (Negative) Urine Bilirubin (Negative) Urine Urobilinogen (Negative) Ur Leukocyte Esterase (Negative) Urine WBC (Auto) (0-5) /hpf Urine RBC (Auto) (0-4) /hpf U Hyaline Cast (Auto) (0-5) /lpf U Epithel Cells (Auto) (0-5) /lpf Urine Bacteria (Auto) (Negative) Hepatitis C Ab Screen (Neg) 03/09/20 03/09/20 03/09/20 Range/Units 15:12 11:58 10:30 WBC (4.8-10.8) K/uL RBC (4.7-6.1) M/uL Hgb (14.0-18.0) g/dL Hct (42-52) % MCV (80-100) fL MCH (25-34) pg MCHC (32-36) g/dL RDW Std Deviation (36.4-46.3) fL RDW Coeff of Neida (11.5-14.5) % Plt Count (130-400) K/uL MPV (7.4-10.4) fL Sodium (136-145) mmol/L Potassium (3.5-5.1) mmol/L Chloride (98-107) mmol/L Carbon Dioxide (21-32) mmol/L Anion Gap (3-11) BUN (7-18) mg/dl Creatinine (0.6-1.4) mg/dl Est Cr Clr Drug Dosing ml/min Est GFR ( Amer) Est GFR (Non-Af Amer) BUN/Creatinine Ratio (10-20) Glucose (70-99) mg/dl POC Glucose 93 (70-99) mg/dl Estimat Average Glucose mg/dl Hemoglobin A1c (4.5-5.6) % Lactate 1.4 (0.4-2.0) mmol/L Calcium (8.5-10.1) mg/dl Phosphorus (2.5-4.9) mg/dl Magnesium (1.8-2.4) mg/dl Total Bilirubin (0.2-1) mg/dl AST (15-37) U/L ALT (12-78) U/L Alkaline Phosphatase (45-117) U/L Total Protein (6.4-8.2) gm/dl Albumin (3.4-5.0) gm/dl Globulin (2.5-4.0) gm/dl Albumin/Globulin Ratio (0.9-2) Urine Color Dark Yellow Urine Appearance Clear (Clear) Urine pH 7.5 (4.5-7.5) Ur Specific Hughson 1.041 H (1.000-1.030) Urine Protein Negative (Negative) Urine Glucose (UA) Negative (Negative) Urine Ketones Trace H (Negative) Urine Blood Trace H (Negative) Urine Nitrite Negative (Negative) Urine Bilirubin Negative (Negative) Urine Urobilinogen Negative (Negative) Ur Leukocyte Esterase Negative (Negative) Urine WBC (Auto) 1-5 (0-5) /hpf Urine RBC (Auto) 10-30 H (0-4) /hpf U Hyaline Cast (Auto) 1-5 (0-5) /lpf U Epithel Cells (Auto) 10-20 H (0-5) /lpf Urine Bacteria (Auto) Negative (Negative) Hepatitis C Ab Screen (Neg) 03/09/20 03/09/20 03/08/20 Range/Units 05:11 05:11 21:50 WBC (4.8-10.8) K/uL RBC (4.7-6.1) M/uL Hgb (14.0-18.0) g/dL Hct (42-52) % MCV (80-100) fL MCH (25-34) pg MCHC (32-36) g/dL RDW Std Deviation (36.4-46.3) fL RDW Coeff of Neida (11.5-14.5) % Plt Count (130-400) K/uL MPV (7.4-10.4) fL Sodium (136-145) mmol/L Potassium (3.5-5.1) mmol/L Chloride (98-107) mmol/L Carbon Dioxide (21-32) mmol/L Anion Gap (3-11) BUN (7-18) mg/dl Creatinine (0.6-1.4) mg/dl Est Cr Clr Drug Dosing ml/min Est GFR ( Amer) Est GFR (Non-Af Amer) BUN/Creatinine Ratio (10-20) Glucose (70-99) mg/dl POC Glucose (70-99) mg/dl Estimat Average Glucose 131 mg/dl Hemoglobin A1c 6.2 H (4.5-5.6) % Lactate (0.4-2.0) mmol/L Calcium (8.5-10.1) mg/dl Phosphorus 2.8 (2.5-4.9) mg/dl Magnesium 2.2 (1.8-2.4) mg/dl Total Bilirubin (0.2-1) mg/dl AST (15-37) U/L ALT (12-78) U/L Alkaline Phosphatase (45-117) U/L Total Protein (6.4-8.2) gm/dl Albumin (3.4-5.0) gm/dl Globulin (2.5-4.0) gm/dl Albumin/Globulin Ratio (0.9-2) Urine Color Urine Appearance (Clear) Urine pH (4.5-7.5) Ur Specific Hughson (1.000-1.030) Urine Protein (Negative) Urine Glucose (UA) (Negative) Urine Ketones (Negative) Urine Blood (Negative) Urine Nitrite (Negative) Urine Bilirubin (Negative) Urine Urobilinogen (Negative) Ur Leukocyte Esterase (Negative) Urine WBC (Auto) (0-5) /hpf Urine RBC (Auto) (0-4) /hpf U Hyaline Cast (Auto) (0-5) /lpf U Epithel Cells (Auto) (0-5) /lpf Urine Bacteria (Auto) (Negative) Hepatitis C Ab Screen Neg (Neg) Medications Administered Current Inpatient Medications Acetaminophen (Tylenol) 650 mg PO Q4H PRN PRN Reason: pain/fever Stop: 04/08/20 04:02 Last Admin: 03/09/20 16:02 Dose: 650 mg Documented by: Amitriptyline HCl (Elavil) 75 mg PO HS [facility] Stop: 04/08/20 20:59 Last Admin: 03/09/20 20:52 Dose: 75 mg Documented by: Amlodipine Besylate (Norvasc) 2.5 mg PO DAILY [facility] Stop: 04/08/20 08:59 Last Admin: 03/09/20 08:54 Dose: 2.5 mg Documented by: Atorvastatin Calcium (Lipitor) 80 mg PO QAM [facility] Stop: 04/08/20 08:59 Last Admin: 03/09/20 08:51 Dose: Not Given Documented by: Clopidogrel Bisulfate (Plavix) 75 mg PO QAM [facility] Stop: 04/08/20 08:59 Last Admin: 03/09/20 08:53 Dose: 75 mg Documented by: Dextrose (Dextrose 50%) 25 - 50 ml IV UD PRN; Protocol PRN Reason: Hypoglycemia Protocol Stop: 04/08/20 04:02 Duloxetine HCl (Cymbalta) [facility]: 04/08/20 08:59 Last Admin: 03/09/20 08:51 Dose: Not Given Documented by: Enoxaparin Sodium (Lovenox) 30 mg SQ QAM [facility] Stop: 04/08/20 08:59 Last Admin: 03/09/20 15:18 Dose: Not Given Documented by: Fluticasone Propionate (Flonase) 2 sprays NA DAILY [facility] Stop: 04/08/20 08:59 Last Admin: 03/09/20 09:01 Dose: 2 sprays Documented by: Gabapentin (Neurontin) 400 mg PO TID [facility] Stop: 04/08/20 04:02 Last Admin: 03/09/20 20:50 Dose: Not Given Documented by: Glucagon (Glucagen) 1 mg SQ UD PRN; Protocol PRN Reason: Hypoglycemia Protocol Stop: 04/08/20 04:02 Glucose (Dex4 Glucose) 4 - 8 tabs PO UD PRN; Protocol PRN Reason: Hypoglycemia Protocol Stop: 04/08/20 04:02 Glucose (Glucose 40%) 15 - 30 gm PO UD PRN; Protocol PRN Reason: Hypoglycemia Protocol Stop: 04/08/20 04:02 Promethazine HCl 12.5 mg/ (Sodium Chloride) 50.5 mls @ 202 mls/hr IV Q6H PRN PRN Reason: Nausea And Vomiting Stop: 04/08/20 04:02 Lactated Ringer's (Lr) 1,000 mls @ 125 mls/hr IV .Q8H [facility] Stop: 04/08/20 16:44 Last Admin: 03/10/20 00:49 Dose: 125 mls/hr Documented by: Insulin Aspart (Novolog Flexpen) 0 units SC ACHS [facility] Stop: 04/08/20 04:02 Last Admin: 03/09/20 20:57 Dose: Not Given Documented by: Ketorolac Tromethamine (Toradol) 15 mg IV Q6H PRN PRN Reason: Pain Stop: 03/14/20 04:02 Last Admin: 03/10/20 02:46 Dose: 15 mg Documented by: Levothyroxine Sodium (Synthroid) 100 mcg PO DAILYBB [facility] Stop: 04/08/20 06:29 Last Admin: 03/10/20 07:00 Dose: 100 mcg Documented by: Lisinopril (Zestril) 10 mg PO QAM [facility] Stop: 04/08/20 08:59 Last Admin: 03/09/20 08:53 Dose: 10 mg Documented by: Miscellaneous (Order Awaiting Action) 1 ea N/A QS [facility] Stop: 04/08/20 07:59 Last Admin: 03/10/20 07:52 Dose: Not Given Documented by: Miscellaneous (Carbohydrates For Hypoglycemia) 15 - 30 gm PO UD PRN PRN Reason: Hypoglycemia Protocol Stop: 04/08/20 04:02 Last Admin: 03/09/20 17:20 Dose: 15 gm Documented by: Morphine Sulfate (Ms Contin) 30 mg PO BID [facility] Stop: 03/23/20 08:59 Last Admin: 03/09/20 20:50 Dose: Not Given Documented by: Oxycodone/Acetaminophen (Percocet 10/325mg) 1 tab PO Q4 PRN PRN Reason: Pain Stop: 03/23/20 04:02 Last Admin: 03/10/20 06:59 Dose: 1 tab Documented by: Pantoprazole Sodium (Protonix) 40 mg PO BID [facility] Stop: 04/08/20 08:59 Last Admin: 03/09/20 20:51 Dose: 40 mg Documented by: Potassium Chloride (Klor-Con M20) 40 meq PO NOW STA Stop: 03/10/20 07:52 Potassium Chloride (Klor-Con M20) 40 meq PO ONE ONE Stop: 03/10/20 11:01 Potassium Phosphate (Potassium Phosphate Replace) 21 mmol IV NOW STA Stop: 03/10/20 07:52 Prednisone (Prednisone) 5 mg PO Q48H [facility] Stop: 04/08/20 08:59 Last Admin: 03/09/20 08:52 Dose: Not Given Documented by: Propranolol HCl (Inderal) 10 mg PO TID [facility] Stop: 04/08/20 08:59 Last Admin: 03/09/20 20:55 Dose: 10 mg Documented by: Sucralfate (Carafate Tab) 1 gm PO ACHS [facility] Stop: 04/08/20 04:02 Last Admin: 03/10/20 07:53 Dose: Not Given Documented by: Tizanidine HCl (Zanaflex) 8 mg PO Q8 PRN PRN Reason: Muscle Spasm Stop: 04/08/20 04:02 Last Admin: 03/10/20 03:10 Dose: 8 mg Documented by: Topiramate (Topamax) 50 mg PO HS [facility] Stop: 04/08/20 20:59 Last Admin: 03/09/20 20:51 Dose: 50 mg Documented by: (1) Abdominal pain Abdominal location: right lower quadrant Qualified Code(s): R10.31 - Right lower quadrant pain
[2020-03-10] MEDS: ENOXAPARIN INJ 30 MG/0.3 ML SYR SQ SCH (08:26)
[2020-03-10] MEDS: DULOXETINE HCL 60 MG CAP PO SCH (08:27)
[2020-03-10] MEDS: FLUTICASONE PROPIONATE NA SPR 16 GM BTL SCH (08:27)
[2020-03-10] MEDS: AMLODIPINE BESYLATE 5 MG TAB PO SCH (08:28)
[2020-03-10] MEDS: PROPRANOLOL HCL 10 MG TAB PO SCH ×2 (08:28→13:49)
[2020-03-10] MEDS: GABAPENTIN 400 MG CAP PO SCH ×2 (08:28→13:50)
[2020-03-10] MEDS: ATORVASTATIN 40 MG TAB PO SCH (08:28)
[2020-03-10] MEDS: PANTOprazole 40 MG TAB PO SCH (08:29)
[2020-03-10] MEDS: lisinopriL 10 MG TAB PO SCH (08:29)
[2020-03-10] MEDS: CLOPIDOGREL BISULFATE 75 MG TAB PO SCH (08:29)
[2020-03-10] MEDS ORDERED: POTASSIUM PHOSPHATE 21 MMOL in SODIUM CHLORIDE 0.9% 500 ML IV ONE (08:30)
[2020-03-10] MEDS: MoRPHine SULFATE CR 15 MG TABCR PO SCH (08:34)
[2020-03-10] MEDS: INSULIN ASPART 100 UNITS/ML 3 ML PEN SC SCH ×2 (09:36→12:51)
[2020-03-10] MEDS ORDERED: POTASSIUM CHLORIDE 20 MEQ TABCR PO ONE (11:00)
--- NOTE | 2020-03-10 12:04 | Discharge Summary ---
Date of Service March 10, 2020 Admission HPI Per Admitting Provider History obtained from patient and records. 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 Last confinement March 2019 for multifocal pneumonia. 1 week history of achy central abdominal discomfort with nausea. No emesis. No fever, no chills. No change in bowel habits. Denies chest pain, S OB. Intractable discomfort at the ER. 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 Admission Exam Per Admitting Provider GENERAL: Comfortable, pleasant, no respiratory distress SKIN: Normal color, warm HEENT: Flushed face (chronic as per patient), pink palpebral conjunctivae, no ptosis, dry buccal mucosa NECK : Supple, no tenderness CHEST : CTA, no tenderness HEART : RRR, no obvious murmurs ABDOMEN: Some distention, minimal central abdominal tenderness EXTREMITIES : No LE swelling/tenderness, no other conspicuous deformities noted NEUROLOGIC : Coherent, no facial asymmetry, no other gross focality Principal Diagnosis Mild enteritis Discharge Exam GENERAL: Elderly male sitting up in the chair, in no acute distress HEENT: Normocephalic, atraumatic, flushed face (chronic as per patient), pink palpebral conjunctivae, no ptosis, dry buccal mucosa NECK : Supple, no tenderness CHEST : Clear to auscultation bilaterally, no wheezing or rhonchi, no tenderness HEART : RRR, no obvious murmurs ABDOMEN: Normal bowel sounds, soft, mild distention, minimal central abdominal tenderness to palpation EXTREMITIES : No LE swelling/tenderness, moves extremities spontaneously SKIN: Warm, dry NEUROLOGIC : Alert and oriented x3, no facial asymmetry, speech fluent, moves extremities spontaneously Discharge Data Allergies Allergy/AdvReac Type Severity Reaction Status Date / Time No Known Allergies Allergy U Verified 03/08/20 23:11 Consultations 03/09/20 00:17 ED Decision to Admit Stat Ordered Studies 03/08/20 21:29 CT abd pelvis IV con only Stat IMPRESSION: 1. A few mildly dilated fluid-filled loops of small bowel within the left lower quadrant. This could be due to a low-grade partial small bowel obstruction or enteritis. 2. No bowel wall thickening. 3. Normal appendix. 4. Prostatomegaly. Hospital Course (1) Abdominal pain: Most likely secondary to viral enteritis hx IBS as per records Patient not septic. Rule out UTI -UA negative Supportive management for viral enteritis. Clear liquids for now, advance as tolerated Patient admitted for observation, due to abdominal tenderness. Patient denies any change in bowel habits. Discussed this in detail. He actually says that he has bowel movement every day, no diarrhea. No blood in the stool. No difficulty with bowel movements at all. No change in color, or formation. No difficulty urinating, no blood in the urine. Continues to pass flatus without difficulty. He was started on IV fluids on admission, continued throughout the night. White blood cell count normal/mildly elevated yesterday, likely due to chronic steroid use. Labs otherwise unremarkable. Obtained lactate yesterday, 1.4. Discussed with the patient CT findings and labs. Currently patient says that he feels better, his abdominal pain is not bothering him as much, he actually complains about his chronic neck pain. Discussed that he should follow-up with his primary care doctor, and if necessary with his husbandry technician, Dr. Dahl. Regarding his neck pain, he is seen by primary care doctor, as well as pain management as outpatient. 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 hx TIA chronic neck pain, at baseline prediabetes as per records, hemoglobin A1c of 6.20 March 2019 ISS BG goal [id number], update hemoglobin A1c history of IBS as per records past tobacco abuse Disposition: Plan to discharge home with close follow-up with his PCP and possibly GI, patient in agreement Total Time Total Time Spent Total Time Spent (In Minutes): 35 Total Time Includes: Examination of the Patient, Discharge Planning and Medication Reconciliation Discharge Plan Discharge Items Patient Disposition: Home - Self-Care Reason For Visit: ABD PAIN Discharge Diagnosis: Mild enteritis Activity: Per Instructions section Non-emergency contact: Primary Care Provider and Pr Specialist Call non-emergency contact if: you have any medication questions and your symptoms worsen Follow-up/Referrals: Johnathan Rain MD [Primary Care Provider] - Diet: Clear liquid, Low Fiber and Low Fat Addtl Attending Provider Instructions: Recommend to continue with clear liquid diet for next couple of days, and then advance slowly as tolerated. Do not recommend to eat any heavy greasy or fatty foods. Also recommend low fiber/low residual diet for next couple of days. Follow-up with your primary care physician within 1 week. You may discuss if you need further gastroenterology follow-up. If your symptoms worsen, such as you develop fever, chills, severe diarrhea, or you stop passing gas or stop having bowel movements, or your abdominal pain recur, contact healthcare provider for further evaluation, or present yourself in the emergency room for further evaluation. Pending Studies at Discharge: No Stand-Alone Forms: My [facility] [employer], Smoking Cessation Medications and DC Order Prescriptions: Continued gabapentin 400 mg capsule 400 mg PO TID RF: 0 sucralfate [Carafate] 1 gram tablet 1 gm PO ACHS Qty: 40 RF: 0 propranolol 10 mg tablet 10 mg PO TID RF: 0 amitriptyline 75 mg tablet 75 mg PO HS RF: 0 morphine 30 mg tablet extended release 30 mg PO BID RF: 0 oxycodone-acetaminophen [Percocet] 10-325 mg Tablet 1 tab PO Q4 PRN (Reason: Pain) RF: 0 promethazine 25 mg Tablet 25 mg PO Q6H PRN (Reason: Nausea) RF: 0 atorvastatin 80 mg tablet 80 mg PO QAM RF: 0 clopidogrel 75 mg tablet 75 mg PO QAM RF: 0 pantoprazole 40 mg tablet,delayed release (DR/EC) 40 mg PO BID RF: 0 tizanidine 4 mg tablet 8 mg PO Q8 PRN (Reason: Muscle Spasm) RF: 0 Excedrin Extra Strength 250-250-65 mg Tablet 2 tab PO QAM RF: 0 metformin 500 mg Tablet 500 mg PO QAM RF: 0 mometasone 50 mcg/actuation spray,non-aerosol 2 spray intranasal BID RF: 0 azelastine 137 mcg (0.1 %) aerosol,spray 2 spray intranasal BID PRN (Reason: Nasal Congestion) RF: 0 topiramate 25 mg tablet 50 mg PO HS RF: 0 lisinopril 10 mg tablet 10 mg PO QAM RF: 0 testosterone cypionate 200 mg/mL oil 200 mg subcut UD RF: 0 duloxetine 60 mg capsule,delayed release(DR/EC) 60 mg PO QAM RF: 0 levothyroxine 100 mcg tablet 100 mcg PO QAM RF: 0 Excedrin Pm Headache 2 tab PO HS RF: 0 prednisone 5 mg tablet 5 mg PO Q OTHER DAY RF: 0 clobetasol 0.05 % Ointment 1 applic TOPICAL BID PRN (Reason: Rash) RF: 0 amlodipine [Norvasc] 5 mg tablet 2.5 mg PO DAILY RF: 0 Excedrin Extra Strength 250-250-65 mg Tablet 2 tab PO .Q AFTERNOON PRN (Reason: HEADACHE/PAIN) RF: 0 clindamycin phosphate 1 % solution 1 applic TOPICAL DAILY RF: 0 dicyclomine 10 mg capsule 10 mg PO TID RF: 0 Discharge Orders: Discharge Order (Routine); Ordered 03/10/20 Ordered By: Jann Bonner Admission Data Admit Date/Time: 03/09/20 02:08 Attending Provider: Jann Bonner Admit Provider: Gunner Ospina Primary Care Provider: Johnathan Rain Other Providers: Gunner Ospina
== END 2020-03-10 17:00 | disposition home or self-care (01) ==
LOC: 3E 21:24 → ED 21:24 → 3E 03-09 03:48

== ENCOUNTER 2020-03-19 13:04 | Inpatient (IN) ==
[2020-03-19] MEDS ORDERED: ONDANSETRON INJ 2 MG/ML 2 ML VIAL IV STA (13:30)
[2020-03-19] MEDS ORDERED: SODIUM CHLORIDE 0.9% 1000ML 1,000 ML IV ONE (13:30)
[2020-03-19] MEDS ORDERED: PANTOprazole 40 MG in SYRINGE 0 ML IV ONE (13:30)
--- NOTE | 2020-03-19 13:39 | Emergency Department Note ---
Impression & Plan Abdominal pain, acute, epigastric, Anemia, Intractable abdominal pain ED Provider Note NAME: SURENDRA CHEN AGE: 64 SEX: M : 1955 ARRIVES VIA: Ambulance INFORMANT: Patient, ED PROVIDER(S): Ryne Craven DO CHIEF COMPLAINT: Abdominal pain HPI: The patient is a 64-year-old male who presented to the emergency department for an evaluation of epigastric pain and chest pain. The patient states that he began having pain approximately 1 week ago. He states the pain is been ongoing and waxes and wanes. The patient was seen in our facility recently for similar complaints. At that time he had laboratory and radiographic studies but no abnormality was noted. The patient has a history of peptic ulcer disease and also has a history of steroid use in the past. He was scheduled for an upper endoscopy but unfortunately was unable to have this procedure because he did not hold his blood thinners prior to the procedure. The patient complains of epigastric pain radiating to the chest. He denies having any shortness of br eath or lower extremity swelling. He denies having any back pain. The patient states his pain is moderate to severe. It is worse when he eats. The patient has been taking his usual pain medication without relief. ROS: See above HPI for pertinent positives & negatives. A total of 10 systems reviewed and were otherwise negative. PAST MEDICAL HISTORY: See Below PAST SURGICAL HISTORY: See Below FAMILY HISTORY: See Below SOCIAL HISTORY: See Below HOME MEDICATIONS: See Below ALLERGIES: See Below VITALS: See Below PHYSICAL EXAMINATION: GENERAL: The patient is awake and alert. He is very anxious appearing and appears to be in severe pain. EYES: The conjunctivae are clear. The pupils are round and reactive. EARS, NOSE, MOUTH AND THROAT: The nose is without any evidence of any deformity. Mucous membranes are moist. Tongue is midline. NECK: The neck is nontender and supple. RESPIRATORY: Normal respiratory effort is noted there is no evidence of wheezing rhonchi or rales CARDIOVASCULAR: Tachycardic rate with regular rhythm was noted. GASTROINTESTINAL: The abdomen is soft and mildly distended. There is significant epigastric tenderness to palpation but no guarding rigidity. BACK: No midline tenderness or or step-off noted range of motion in flexion extension as well as rotation no signs of muscle spasm noted MUSCULOSKELETAL/EXTREMITIES: There is no evidence of gross deformity full range of motion is noted in the hips and shoulders. SKIN: There is no obvious evidence of any rash. There are no petechiae, pallor or cyanosis noted. NEUROLOGIC: Patient is awake alert and oriented x3 strength is symmetric patellar reflexes are 2+ bilaterally MEDICAL DECISION MAKING: The patient is a 64-year-old male who presented to the emergency department with severe epigastric abdominal pain. The patient has a history of GERD and has had scopes multiple times. He does take medications such as H2 blockers and proton pump inhibitors but also has been on steroids in the past. The patient was scheduled to see his medical instructor but this appointment was canceled because the patient was not able to hold his Plavix. He presents back to the emergency department today with severe pain. He was treated with pain medication in the emergency department. I discussed the patient's laboratory and radiographic studies with him. I discussed his case with his primary medical instructor. The patient was found to have a drop in his hemoglobin. There was concern that this could be related to his epigastric pain. For this reason he did recommend that we keep the patient in the hospital make him n.p.o. after midnight and consider him for an upper endoscopy in the morning. I discussed this plan with the patient and he was agreeable. I also discussed this case with the [facility]. They have agreed to evaluate the patient in the emergency department for further management and disposition. Triage Nursing notes reviewed. Prior medical records reviewed Vital Signs: reviewed and remarkable for hypertension. Differential diagnosis: Etiologies such as appendicitis, diverticulitis, obstruction, inflammatory bowel disease, renal colic, PUD, biliary pathology, pancreatitis, mesenteric ischemia, aortic pathology, infections, genitourinary, UTI, perforated viscus, as well as others were entertained. ER treatment provided: See below Diagnostics interpreted by me: ECG: EKG was obtained in the emergency department. My interpretation is sinus tachycardia at [address] depressions were noted. There is no ectopy. There is no significant change compared to March 162019. Cardiac Monitoring: An order was placed for continuous cardiac monitoring. The monitor shows a rate of 110 with sinus tachycardia rhythm. Laboratory studies: As stated above and show below. Imaging studies: See below Consultation(s): 1630: I discussed this case with Dr. Dahl who is the patient's primary medical instructor. At this time there is concerned about the patient's drop in hemoglobin and his ongoing pain. He is asking that we discussed the case with the hospitalist for inpatient management and an upper endoscopy tomorrow. 1640: I discussed this case with Dr. Neves who is on-call for the [facility] hospitalist group. He is agreed to evaluate the patient in the emergency department for further management and disposition. Past Med/Surg History Medical History Anxiety (Chronic) BPH (benign prostatic hyperplasia) (Chronic) Chronic neck pain (Chronic) Chronic steroid use Diabetes mellitus, type 2 GERD (gastroesophageal reflux disease) (Chronic) History of TIA (transient ischemic attack) (Chronic) X2-->"05/2014" & 06/2017. TAKING PLAVIX. Hyperlipidemia (Chronic) Hypertension (Chronic) Hypothyroidism (Chronic) Nausea and vomiting after administration of anesthetic agent On anticoagulant therapy plavix daily Peptic ulcer disease (Chronic) H/O Surgical History Fusion of spine (Chronic) CERVICAL AREA. UNSURE OF THE LEVELS. LIMITED ROM ALL DIRECTIONS-EASILY CAUSES NECK SPASMS. HAS BEEN INTUBATED SINCE WITHOUT ISSUES. H/O Achilles tendon repair (Chronic) x3--RIGHT FOOT H/O elbow surgery (Chronic) RIGHT ELBOW BONE SPUR REMOVAL H/O shoulder surgery (Chronic) LEFT SHOULDER BONE SPUR REMOVAL H/O: pituitary tumor (Chronic) BENIGN TUMOR REMOVED History of colonoscopy History of esophagogastroduodenoscopy (EGD) History of nasal septoplasty (Chronic) History of tonsillectomy (Chronic) S/P LASIK surgery of both eyes (Chronic) S/P UPPP (uvulopalatopharyngoplasty) (Chronic) Family History Uncle Family history of diabetes mellitus Other Hypertension No family history of adverse response to anesthesia Social History Preferred Language: Romanian Communication Ability: Effective Visual Impairment: No Limitations Hearing Ability: Normal Advanced Nursing Professor Required: No Beliefs That Will Affect Care: None marital status: Single Current Living Situation: Alone Current Living Situation Comment: DOG Feels Safe at Home: Yes Smoking Status: Never smoker Second Hand Exposure: Yes (father smoked pipe) ; Hx Alcohol Use: No Hx Substance Use: No Allergies Allergies Allergy/AdvReac Type Severity Reaction Status Date / Time No Known Allergies Allergy U Verified 03/19/20 15:20 Home Meds Home Medications Medication Instructions Recorded Confirmed amitriptyline 75 mg PO HS 08/16/18 03/19/20 morphine 30 mg PO BID 08/16/18 03/19/20 oxycodone-acetaminophen [Percocet] 1 tab PO Q4 PRN 08/16/18 03/19/20 promethazine 25 mg PO Q6H PRN 08/16/18 03/19/20 atorvastatin 80 mg PO QAM 09/12/18 03/19/20 clopidogrel 75 mg PO QAM 09/12/18 03/19/20 pantoprazole 40 mg PO BID 09/12/18 03/19/20 tizanidine 8 mg PO TID 09/12/18 03/19/20 gabapentin 400 mg capsule 400 mg PO TID 09/19/18 03/19/20 Excedrin Extra Strength 2 tab PO QAM 09/21/18 03/19/20 metformin 500 mg PO QAM 12/25/18 03/19/20 azelastine 2 spray INTRANASAL BID PRN 03/31/19 03/19/20 mometasone 2 spray INTRANASAL DAILY 03/31/19 03/19/20 duloxetine 60 mg PO QAM 04/06/19 03/19/20 lisinopril 10 mg PO QAM 04/06/19 03/19/20 testosterone cypionate 200 mg SUBCUT UD 04/06/19 03/19/20 topiramate 50 mg PO HS 04/06/19 03/19/20 levothyroxine 100 mcg PO QAM 04/08/19 03/19/20 propranolol 10 mg tablet 10 mg PO TID PRN 09/24/19 03/19/20 Excedrin Pm Headache 2 tab PO HS 10/18/19 03/19/20 clobetasol 1 applic TOPICAL BID PRN 10/18/19 03/19/20 prednisone 5 mg PO Q OTHER DAY 10/18/19 03/19/20 Excedrin Extra Strength 2 tab PO DAILY PRN 03/08/20 03/19/20 amlodipine [Norvasc] 2.5 mg PO QAM 03/08/20 03/19/20 dicyclomine 10 mg PO TID 03/08/20 03/19/20 Previous Rx's Medication Instructions Recorded famotidine 20 mg PO BID #20 tab 03/16/20 metoclopramide HCl 10 mg PO Q6H PRN #14 tab 03/16/20 sucralfate 1 gram tablet See Rx Instructions .ROUTE 03/18/20 .COMPLEX #40 tablet Results & Data (ED) Vital Signs Vital Signs - 24 hr 03/19/20 13:08 03/19/20 13:11 03/19/20 13:17 Pulse Rate 134 H 137 H Pulse Rate from SpO2 Sensor 132 H 135 H Respiratory Rate 13 12 Blood Pressure 133/69 Blood Pressure Mean 85 Pulse Oximetry 98 99 Oxygen Delivery Method Room Air Room Air Room Air Sepsis Recent Fever Within 48 Hours No Sepsis New/Unexplained Change in Mental Status No Sepsis Action Taken by Nursing No Action Required 03/19/20 13:20 03/19/20 13:30 03/19/20 13:31 Pulse Rate 105 H 105 H 113 H Pulse Rate from SpO2 Sensor 104 H 106 H 114 H Respiratory Rate 23 26 H 25 H Blood Pressure 120/96 Blood Pressure Mean 106 Pulse Oximetry 98 100 97 Oxygen Delivery Method Room Air Room Air Room Air Sepsis Recent Fever Within 48 Hours Sepsis New/Unexplained Change in Mental Status Sepsis Action Taken by Nursing 03/19/20 13:40 03/19/20 13:50 03/19/20 14:00 Pulse Rate 98 H 64 68 Pulse Rate from SpO2 Sensor 96 H 67 69 Respiratory Rate 19 14 12 Blood Pressure 139/66 Blood Pressure Mean 81 Pulse Oximetry 99 100 98 Oxygen Delivery Method Room Air Room Air Room Air Sepsis Recent Fever Within 48 Hours Sepsis New/Unexplained Change in Mental Status Sepsis Action Taken by Nursing 03/19/20 14:01 03/19/20 14:10 03/19/20 14:20 Pulse Rate 72 95 H 73 Pulse Rate from SpO2 Sensor 71 94 H 151 H Respiratory Rate 17 17 23 Blood Pressure Blood Pressure Mean Pulse Oximetry 98 100 Oxygen Delivery Method Room Air Room Air Room Air Sepsis Recent Fever Within 48 Hours Sepsis New/Unexplained Change in Mental Status Sepsis Action Taken by Nursing 03/19/20 14:30 03/19/20 14:31 03/19/20 14:40 Pulse Rate 85 75 98 H Pulse Rate from SpO2 Sensor 85 84 98 H Respiratory Rate 17 23 18 Blood Pressure 146/77 H Blood Pressure Mean 93 Pulse Oximetry 91 98 Oxygen Delivery Method Room Air Room Air Room Air Sepsis Recent Fever Within 48 Hours Sepsis New/Unexplained Change in Mental Status Sepsis Action Taken by Nursing 03/19/20 14:50 03/19/20 15:00 03/19/20 15:01 Pulse Rate 98 H 95 H 93 H Pulse Rate from SpO2 Sensor 98 H 95 H 94 H Respiratory Rate 13 18 24 Blood Pressure 133/67 Blood Pressure Mean 95 Pulse Oximetry 99 99 98 Oxygen Delivery Method Room Air Room Air Room Air Sepsis Recent Fever Within 48 Hours Sepsis New/Unexplained Change in Mental Status Sepsis Action Taken by Nursing 03/19/20 15:10 03/19/20 15:20 03/19/20 15:30 Pulse Rate 62 73 93 H Pulse Rate from SpO2 Sensor 61 76 96 H Respiratory Rate 16 17 15 Blood Pressure Blood Pressure Mean Pulse Oximetry 100 97 94 Oxygen Delivery Method Room Air Room Air Room Air Sepsis Recent Fever Within 48 Hours Sepsis New/Unexplained Change in Mental Status Sepsis Action Taken by Nursing 03/19/20 15:31 03/19/20 15:40 03/19/20 15:50 Pulse Rate 104 H 86 97 H Pulse Rate from SpO2 Sensor 100 H 97 H 95 H Respiratory Rate 28 H 20 14 Blood Pressure 161/64 H Blood Pressure Mean 75 Pulse Oximetry 91 99 100 Oxygen Delivery Method Room Air Room Air Room Air Sepsis Recent Fever Within 48 Hours Sepsis New/Unexplained Change in Mental Status Sepsis Action Taken by Nursing 03/19/20 17:16 Pulse Rate 83 Pulse Rate from SpO2 Sensor 84 Respiratory Rate 13 Blood Pressure Blood Pressure Mean Pulse Oximetry 100 Oxygen Delivery Method Room Air Sepsis Recent Fever Within 48 Hours Sepsis New/Unexplained Change in Mental Status Sepsis Action Taken by Group Home Medications Current Medication List: was personally reviewed by me Laboratory Data Attestation: I reviewed the patient's lab results. Result diagrams: 03/19/20 13:15 03/19/20 13:15 Lab Results 03/19/20 03/19/20 03/19/20 Range/Units 13:15 13:15 17:15 WBC 8.91 (4.8-10.8) K/uL RBC 4.12 L (4.7-6.1) M/uL Hgb 12.2 L (14.0-18.0) g/dL Hct 35.3 L (42-52) % MCV 85.7 (80-100) fL MCH 29.6 (25-34) pg MCHC 34.6 (32-36) g/dL RDW Std Deviation 41.1 (36.4-46.3) fL RDW Coeff of Neida 13.4 (11.5-14.5) % Plt Count 374 (130-400) K/uL MPV 9.4 (7.4-10.4) fL Immature Gran % (Auto) 0.2 % Neut % (Auto) 76.2 % Lymph % (Auto) 15.9 % [place] % (Auto) 6.3 % Eos % (Auto) 1.1 % Baso % (Auto) 0.3 % Immature Gran # (Auto) 0.02 (0.00-0.02) K/uL Neut # (Auto) 6.78 H (1.4-6.5) K/uL Lymph # (Auto) 1.42 (1.2-3.4) K/uL [place] # (Auto) 0.56 (0.11-0.59) K/uL Eos # (Auto) 0.10 (0-0.5) K/uL Baso # (Auto) 0.03 (0-0.2) K/uL Absolute Nucleated RBC 0.00 (0-0) K/uL Nucleated RBC % (auto) 0.0 % Sodium 142 (136-145) mmol/L Potassium 3.8 (3.5-5.1) mmol/L Chloride 110 H (98-107) mmol/L Carbon Dioxide 23 (21-32) mmol/L Anion Gap 9.0 (3-11) BUN 21 H (7-18) mg/dl Creatinine 1.01 (0.6-1.4) mg/dl Est Cr Clr Drug Dosing 71.1 ml/min Est GFR ( Amer) 90.7 Est GFR (Non-Af Amer) 78.2 BUN/Creatinine Ratio 20.9 H (10-20) Glucose 112 H (70-99) mg/dl Calcium 9.2 (8.5-10.1) mg/dl Total Bilirubin 0.4 (0.2-1) mg/dl AST 24 (15-37) U/L ALT 22 (12-78) U/L Alkaline Phosphatase 108 (45-117) U/L Troponin I < 0.015 (0-0.045) ng/ml Total Protein 6.3 L (6.4-8.2) gm/dl Albumin 3.8 (3.4-5.0) gm/dl Globulin 2.5 (2.5-4.0) gm/dl Albumin/Globulin Ratio 1.5 (0.9-2) Lipase 123 (73-393) U/L Specimen Hemolysis Urine Color Yellow Urine Appearance Turbid A (Clear) Urine pH 7.0 (4.5-7.5) Ur Specific [place] 1.021 (1.000-1.030) Urine Protein Negative (Negative) Urine Glucose (UA) Negative (Negative) Urine Ketones Trace H (Negative) Urine Blood Trace H (Negative) Urine Nitrite Negative (Negative) Urine Bilirubin Negative (Negative) Urine Urobilinogen Negative (Negative) Ur Leukocyte Esterase Negative (Negative) Urine WBC (Auto) 1-5 (0-5) /hpf Urine RBC (Auto) 5-10 H (0-4) /hpf U Hyaline Cast (Auto) 1-5 (0-5) /lpf U Epithel Cells (Auto) 10-20 H (0-5) /lpf Urine Bacteria (Auto) Negative (Negative) Administered Medications Fentanyl Citrate (Fentanyl Citrate) 50 mcg IV Q15M PRN PRN Reason: Pain Stop: 04/02/20 13:29 Last Admin: 03/19/20 14:35 Dose: 50 mcg Documented by: [id number] Admin: 03/19/20 13:48 Dose: 50 mcg Documented by: [id number] Discontinued Medications Sodium Chloride (Nss 1000ml) 1,000 mls @ 999 mls/hr IV .Q1H1M ONE Stop: 03/19/20 14:30 Last Infusion: 03/19/20 14:19 Dose: 0 mls/hr Documented by: [id number] Admin: 03/19/20 13:17 Dose: 999 mls/hr Documented by: [id number] Pantoprazole Sodium 40 mg/ (Syringe) 10 mls @ 5 mls/min IV NOW ONE Stop: 03/19/20 13:31 Last Admin: 03/19/20 14:55 Dose: 5 mls/min Documented by: [id number] Ondansetron HCl (Zofran) 4 mg IV NOW STA Stop: 03/19/20 13:31 Last Admin: 03/19/20 13:48 Dose: 4 mg Documented by: [id number] Imaging Data Radiologist's Impression: XR KUB/Abdomen 1 view CLINICAL HISTORY: pain COMPARISON STUDY: 04/05/2017 FINDINGS: There is contrast present within nondilated colon. There are nondilated gas-filled small bowel loops. There are no transition zones indicate bowel obstruction. IMPRESSION: Nonobstructive bowel gas pattern. ACT 112: Negative or not required by law. Electronically signed by: Jaison Sorenson M.D. 03/19/2020 1:57 PM Dictated: 03/19/20 1357 Transcribed: 03/19/20 1357 XR chest 1V portable CLINICAL HISTORY: pain COMPARISON STUDY: 03/16/2020 FINDINGS: The bones soft tissues and hemidiaphragms are normal. The cardiomediastinal silhouette is normal. The lungs are clear. The pulmonary vasculature is normal. IMPRESSION: Negative chest. ACT 112: Negative or not required by law. The above report was generated using voice recognition software. It may contain grammatical, syntax or spelling errors. Electronically signed by: Rich Pedro M.D. 03/19/2020 1:56 PM Dictated: 03/19/20 1355 Transcribed: 03/19/20 1355 Blood Pressure Blood Pressure Findings: Elevated blood pressure Blood Pressure Disposition: further management by hospitalist Discharge Plan Visit Data Chief Complaint: Abdominal Pain ED Provider: Ryne Craven Discharge Problem: Abdominal pain, acute, epigastric, Anemia, Intractable abdominal pain Patient Disposition: Being Evaluated by Hospitalist Condition: Good Forms Stand Alone Forms: My [employer] Prescriptions Prescriptions: No Action gabapentin 400 mg capsule 400 mg PO TID RF: 0 sucralfate 1 gram tablet See Rx Instructions .ROUTE .COMPLEX Qty: 40 RF: 0 propranolol 10 mg tablet 10 mg PO TID PRN (Reason: Tremor(S)) RF: 0 amitriptyline 75 mg tablet 75 mg PO HS RF: 0 morphine 30 mg tablet extended release 30 mg PO BID RF: 0 oxycodone-acetaminophen [Percocet] 10-325 mg Tablet 1 tab PO Q4 PRN (Reason: Pain) RF: 0 promethazine 25 mg Tablet 25 mg PO Q6H PRN (Reason: Nausea) RF: 0 atorvastatin 80 mg tablet 80 mg PO QAM RF: 0 clopidogrel 75 mg tablet 75 mg PO QAM RF: 0 pantoprazole 40 mg tablet,delayed release (DR/EC) 40 mg PO BID RF: 0 tizanidine 4 mg tablet 8 mg PO TID RF: 0 Excedrin Extra Strength 250-250-65 mg Tablet 2 tab PO QAM RF: 0 metformin 500 mg Tablet 500 mg PO QAM RF: 0 mometasone 50 mcg/actuation spray,non-aerosol 2 spray intranasal DAILY RF: 0 azelastine 137 mcg (0.1 %) aerosol,spray 2 spray intranasal BID PRN (Reason: Nasal Congestion) RF: 0 topiramate 25 mg tablet 50 mg PO HS RF: 0 lisinopril 10 mg tablet 10 mg PO QAM RF: 0 testosterone cypionate 200 mg/mL oil 200 mg subcut UD RF: 0 duloxetine 60 mg capsule,delayed release(DR/EC) 60 mg PO QAM RF: 0 levothyroxine 100 mcg tablet 100 mcg PO QAM RF: 0 Excedrin Pm Headache 2 tab PO HS RF: 0 prednisone 5 mg tablet 5 mg PO Q OTHER DAY RF: 0 clobetasol 0.05 % Ointment 1 applic TOPICAL BID PRN (Reason: Rash) RF: 0 amlodipine [Norvasc] 5 mg tablet 2.5 mg PO QAM RF: 0 Excedrin Extra Strength 250-250-65 mg Tablet 2 tab PO DAILY PRN (Reason: HEADACHE/PAIN) RF: 0 dicyclomine 10 mg capsule 10 mg PO TID RF: 0 famotidine 20 mg tablet 20 mg PO BID Qty: 20 RF: 0 metoclopramide HCl 10 mg tablet 10 mg PO Q6H PRN (Reason: nausea and vomiting) Qty: 14 RF: 0 Referrals Referrals: Johnathan Rain MD [Primary Care Provider] -
[2020-03-19] MEDS: fentaNYL citrate 100 MCG/2 ML VIAL IV PRN ×2 (13:48→14:35)
[2020-03-19 13:51] LABS: Alanine Aminotransferase 22 U/L (12-78); Albumin Level 3.8 gm/dl (3.4-5.0); Aspartate Aminotransferase 24 U/L (15-37); BUN Creatinine Ratio 20.9 (10-20); Blood Urea Nitrogen 21 mg/dl (7-18); Calcium 9.2 mg/dl (8.5-10.1); Carbon Dioxide 23 mmol/L (21-32); Chloride 110 mmol/L (98-107); Creatinine Clr Calc Pharmacy 71.1 ml/min; Est GFR (African American) 90.7; Est GFR (Non-African American) 78.2; Glucose 112 mg/dl (70-99); Lipase 123 U/L (73-393); Potassium 3.8 mmol/L (3.5-5.1); Sodium 142 mmol/L (136-145)
[2020-03-19 13:58] LABS: Basophils # (auto) 0.03 K/uL (0-0.2); Basophils % (auto) 0.3 %; Eosinophils % (auto) 1.1 %; Hematocrit (blood only) 35.3 % (42-52); Hemoglobin 12.2 g/dL (14.0-18.0); Immature Granulocytes # (auto) 0.02 K/uL (0.00-0.02); Immature Granulocytes % (auto) 0.2 %; Lymphocytes # (auto) 1.42 K/uL (1.2-3.4); Lymphocytes % (auto) 15.9 %; Mean Corpuscular Hemoglobin 29.6 pg (25-34); Mean Corpuscular Hgb Conc 34.6 g/dL (32-36); Mean Corpuscular Volume 85.7 fL (80-100); Mean Platelet Volume 9.4 fL (7.4-10.4); Monocytes # (auto) 0.56 K/uL (0.11-0.59); Monocytes % (auto) 6.3 %; Neutrophils # (auto) 6.78 K/uL (1.4-6.5); Neutrophils % (auto) 76.2 %; Platelet Count 374 K/uL (130-400); RDW Coefficient of Variation 13.4 % (11.5-14.5); RDW Standard Deviation 41.1 fL (36.4-46.3); Red Blood Count 4.12 M/uL (4.7-6.1); White Blood Count 8.91 K/uL (4.8-10.8)
--- NOTE | 2020-03-19 13:58 | XRay Report ---
XR chest 1V portable CLINICAL HISTORY: pain COMPARISON STUDY: 03/16/2020 FINDINGS: The bones soft tissues and hemidiaphragms are normal. The cardiomediastinal silhouette is n ormal. The lungs are clear. The pulmonary vasculature is normal. IMPRESSION: Negative chest. ACT 112: Negative or not required by law. The above report was generated using voice recognition software. It may contain grammatical, syntax or spelling errors. Electronically signed by: Rich Pedro M.D. 03/19/2020 1:56 PM
--- NOTE | 2020-03-19 13:59 | XRay Report ---
XR KUB/Abdomen 1 view CLINICAL HISTORY: pain COMPARISON STUDY: 04/05/2017 FINDINGS: There is contrast present within nondilated colon. There are nondilated gas-filled small makenzie wel loops. There are no transition zones indicate bowel obstruction. IMPRESSION: Nonobstructive bowel gas pattern. ACT 112: Negative or not required by law. Electronically signed by: Jaison Sorenson M.D. 03/19/2020 1:57 PM
[2020-03-19 14:00] LABS: Albumin Globulin Ratio 1.5 (0.9-2); Alkaline Phosphatase 108 U/L (45-117); Bilirubin,Total 0.4 mg/dl (0.2-1); Globulin 2.5 gm/dl (2.5-4.0); Total Protein 6.3 gm/dl (6.4-8.2); Troponin I < 0.015 ng/ml (0-0.045)
[2020-03-19 17:40] LABS: Appearance Urine Turbid (Clear); Bacteria Urine Automated Negative (Negative); Bilirubin Urine Negative (Negative); Blood Urine Trace (Negative); Color Urine Yellow; Glucose Urine UA Negative (Negative); Ketones Urine Trace (Negative); Leukocyte Esterase Urine Negative (Negative); Nitrite Urine Negative (Negative); Protein Urine Negative (Negative); Specific Gravity Urine 1.021 (1.000-1.030); Urobilinogen Urine Negative (Negative)
--- NOTE | 2020-03-19 18:56 | History & Physical Report ---
Date of Service March 19, 2020 Assessment & Plan (1) Epigastric pain: Patient is a 64-year-old male with history of gastritis, diabetes type 2, hypertension, glucocorticoid deficiency on prednisone, presenting with Epigastric pain x2 weeks. Epigastric pain, possible upper GI bleed, secondary to peptic ulcer disease versus gastritis Risk factors: Chronic prednisone use, Plavix Baseline hemoglobin is 15, now 12 Patient however denies melena hematochezia Protonix drip, IV fluids, n.p.o. GI consult-Dr. Dahl, ER physician spoke with him, plan for EGD tomorrow Hold Plavix Chest pain Patient has mentioned chest pain with ER physician Initial troponin negative, EKG no signs of acute ischemia or infarct Check 2 more sets of troponins Check echocardiogram Diabetes type 2 Hold usual metformin Placed on insulin sliding scale Hypertension Stable Continue usual lisinopril and amlodipine Pituitary macroadenoma, glucocorticoid deficiency, central hypothyroidism Continue usual prednisone, and levothyroxine TIA Hold Plavix in light of #1 DVT prophylaxis SCDs only in light of possible upper GI bleed Disposition Anticipate discharge to home when medically stable History of Present Illness 64-year-old male with history of diabetes, hypertension, gastritis, 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 Patient will take his usual Percocet and MS Contin with no relief. He was scheduled to have outpatient EGD but because of the progression of pain patient presented to the ER. At the ER, the patient was noted to have a hemoglobin of 12, baseline is around 15. Troponin negative x1 ER physician spoke with GI quality improvement consultant Dr. Dahl who recommends n.p.o. after midnight for EGD tomorrow. On exam, the patient is seen resting in bed, not in distress. States epigastric pain is moderate to severe. He denies having any chest pain, shortness of breath, palpitations, dizziness, no fevers or chills. No other symptoms Primary Care Provider: Johnathan Rain MD Allergies Allergy/AdvReac Type Severity Reaction Status Date / Time No Known Allergies Allergy U Verified 03/19/20 15:20 Home Medications Home Medications Medication Instructions Recorded Confirmed Type amitriptyline 75 mg PO HS 08/16/18 03/19/20 History morphine 30 mg PO BID 08/16/18 03/19/20 History oxycodone-acetaminophen [Percocet] 1 tab PO Q4 PRN 08/16/18 03/19/20 History promethazine 25 mg PO Q6H PRN 08/16/18 03/19/20 History atorvastatin 80 mg PO QAM 09/12/18 03/19/20 History clopidogrel 75 mg PO QAM 09/12/18 03/19/20 History pantoprazole 40 mg PO BID 09/12/18 03/19/20 History tizanidine 8 mg PO TID 09/12/18 03/19/20 History gabapentin 400 mg capsule 400 mg PO TID 09/19/18 03/19/20 History Excedrin Extra Strength 2 tab PO QAM 09/21/18 03/19/20 History metformin 500 mg PO QAM 12/25/18 03/19/20 History azelastine 2 spray INTRANASAL BID PRN 03/31/19 03/19/20 History mometasone 2 spray INTRANASAL DAILY 03/31/19 03/19/20 History duloxetine 60 mg PO QAM 04/06/19 03/19/20 History lisinopril 10 mg PO QAM 04/06/19 03/19/20 History testosterone cypionate 200 mg SUBCUT UD 04/06/19 03/19/20 History topiramate 50 mg PO HS 04/06/19 03/19/20 History levothyroxine 100 mcg PO QAM 04/08/19 03/19/20 History propranolol 10 mg tablet 10 mg PO TID PRN 09/24/19 03/19/20 History Excedrin Pm Headache 2 tab PO HS 10/18/19 03/19/20 History clobetasol 1 applic TOPICAL BID PRN 10/18/19 03/19/20 History prednisone 5 mg PO Q OTHER DAY 10/18/19 03/19/20 History Excedrin Extra Strength 2 tab PO DAILY PRN 03/08/20 03/19/20 History amlodipine [Norvasc] 2.5 mg PO QAM 03/08/20 03/19/20 History dicyclomine 10 mg PO TID 03/08/20 03/19/20 History famotidine 20 mg PO BID #20 tab 03/16/20 03/19/20 Rx metoclopramide HCl 10 mg PO Q6H PRN #14 tab 03/16/20 03/19/20 Rx sucralfate 1 gram tablet See Rx Instructions .ROUTE 03/18/20 03/19/20 Rx .COMPLEX #40 tablet Past Med/Surg History Medical History Anxiety (Chronic) BPH (benign prostatic hyperplasia) (Chronic) Chronic neck pain (Chronic) Chronic steroid use Diabetes mellitus, type 2 GERD (gastroesophageal reflux disease) (Chronic) History of TIA (transient ischemic attack) (Chronic) X2-->"05/2014" & 06/2017. TAKING PLAVIX. Hyperlipidemia (Chronic) Hypertension (Chronic) Hypothyroidism (Chronic) Nausea and vomiting after administration of anesthetic agent On anticoagulant therapy plavix daily Peptic ulcer disease (Chronic) H/O Surgical History Fusion of spine (Chronic) CERVICAL AREA. UNSURE OF THE LEVELS. LIMITED ROM ALL DIRECTIONS-EASILY CAUSES NECK SPASMS. HAS BEEN INTUBATED SINCE WITHOUT ISSUES. H/O Achilles tendon repair (Chronic) x3--RIGHT FOOT H/O elbow surgery (Chronic) RIGHT ELBOW BONE SPUR REMOVAL H/O shoulder surgery (Chronic) LEFT SHOULDER BONE SPUR REMOVAL H/O: pituitary tumor (Chronic) BENIGN TUMOR REMOVED History of colonoscopy History of esophagogastroduodenoscopy (EGD) History of nasal septoplasty (Chronic) History of tonsillectomy (Chronic) S/P LASIK surgery of both eyes (Chronic) S/P UPPP (uvulopalatopharyngoplasty) (Chronic) Family History Uncle Family history of diabetes mellitus Other Hypertension No family history of adverse response to anesthesia Social History Preferred Language: Danish Communication Ability: Effective Visual Impairment: No Limitations Hearing Ability: Normal Intelligence Director Required: No Beliefs That Will Affect Care: None marital status: Single Current Living Situation: Alone Current Living Situation Comment: DOG Feels Safe at Home: Yes Smoking Status: Never smoker Second Hand Exposure: Yes (father smoked pipe) ; Hx Alcohol Use: No Hx Substance Use: No Review of Systems Review of Systems: All systems reviewed & are unremarkable except as noted in HPI & below Physical Exam Physical Exam: General- oriented x 3, not in distress, speaks in sentences with no effort or accessory muscle use Eyes- anicteric Neck- no JVD Lungs- clear breath sounds bilaterally, no rales/wheezes Heart- normal rate, regular rhythm; no murmurs Abdomen- normal bowel sounds, nondistended, soft, mild epigastric tenderness Extremities- no pretibial edema, no calf tenderness Neuro- alert, oriented x 3; no gross focal neurologic deficits Skin- warm & dry Results & Data Results & Data ([facility]) Vital Signs (Past 12 Hours) Vital Signs Pulse Resp BP Pulse Ox 03/19/20 18:31 83 14 100 03/19/20 18:30 89 18 154/72 H 100 03/19/20 18:20 97 H 19 100 03/19/20 18:10 95 H 15 100 03/19/20 18:01 92 H 16 99 03/19/20 18:00 79 16 157/76 H 100 03/19/20 17:50 90 17 100 03/19/20 17:40 99 H 16 100 03/19/20 17:31 91 H 15 100 03/19/20 17:30 74 14 146/74 H 100 03/19/20 17:20 88 14 100 03/19/20 17:16 83 13 100 03/19/20 15:50 97 H 14 100 03/19/20 15:40 86 20 99 03/19/20 15:31 104 H 28 H 161/64 H 91 03/19/20 15:30 93 H 15 94 03/19/20 15:20 73 17 97 03/19/20 15:10 62 16 100 03/19/20 15:01 93 H 24 98 03/19/20 15:00 95 H 18 133/67 99 03/19/20 14:50 98 H 13 99 03/19/20 14:40 98 H 18 98 03/19/20 14:31 75 23 91 03/19/20 14:30 85 17 146/77 H 03/19/20 14:20 73 23 03/19/20 14:10 95 H 17 100 03/19/20 14:01 72 17 98 03/19/20 14:00 68 12 139/66 98 03/19/20 13:50 64 14 100 03/19/20 13:40 98 H 19 99 03/19/20 13:31 113 H 25 H 97 03/19/20 13:30 105 H 26 H 120/96 100 03/19/20 13:20 105 H 23 98 03/19/20 13:11 137 H 12 99 03/19/20 13:08 134 H 13 133/69 98 Laboratory Results Laboratory Results - last 24 hr 03/19/20 03/19/20 03/19/20 13:15 13:15 17:15 WBC 8.91 RBC 4.12 L Hgb 12.2 L Hct 35.3 L MCV 85.7 MCH 29.6 MCHC 34.6 RDW Std Deviation 41.1 RDW Coeff of [place] 13.4 Plt Count 374 MPV 9.4 Immature Gran % (Auto) 0.2 Neut % (Auto) 76.2 Lymph % (Auto) 15.9 [place] % (Auto) 6.3 Eos % (Auto) 1.1 Baso % (Auto) 0.3 Immature Gran # (Auto) 0.02 Neut # (Auto) 6.78 H Lymph # (Auto) 1.42 [place] # (Auto) 0.56 Eos # (Auto) 0.10 Baso # (Auto) 0.03 Absolute Nucleated RBC 0.00 Nucleated RBC % (auto) 0.0 Sodium 142 Potassium 3.8 Chloride 110 H Carbon Dioxide 23 Anion Gap 9.0 BUN 21 H Creatinine 1.01 Est Cr Clr Drug Dosing 71.1 Est GFR ( Amer) 90.7 Est GFR (Non-Af Amer) 78.2 BUN/Creatinine Ratio 20.9 H Glucose 112 H Calcium 9.2 Total Bilirubin 0.4 AST 24 ALT 22 Alkaline Phosphatase 108 Troponin I < 0.015 Total Protein 6.3 L Albumin 3.8 Globulin 2.5 Albumin/Globulin Ratio 1.5 Lipase 123 Specimen Hemolysis Urine Color Yellow Urine Appearance Turbid A Urine pH 7.0 Ur Specific [place] 1.021 Urine Protein Negative Urine Glucose (UA) Negative Urine Ketones Trace H Urine Blood Trace H Urine Nitrite Negative Urine Bilirubin Negative Urine Urobilinogen Negative Ur Leukocyte Esterase Negative Urine WBC (Auto) 1-5 Urine RBC (Auto) 5-10 H U Hyaline Cast (Auto) 1-5 U Epithel Cells (Auto) 10-20 H Urine Bacteria (Auto) Negative 03/19/20 03/19/20 19:20 19:20 WBC RBC Hgb 11.6 L Hct MCV MCH MCHC RDW Std Deviation RDW Coeff of [place] Plt Count MPV Immature Gran % (Auto) Neut % (Auto) Lymph % (Auto) [place] % (Auto) Eos % (Auto) Baso % (Auto) Immature Gran # (Auto) Neut # (Auto) Lymph # (Auto) [place] # (Auto) Eos # (Auto) Baso # (Auto) Absolute Nucleated RBC Nucleated RBC % (auto) Sodium Potassium Chloride Carbon Dioxide Anion Gap BUN Creatinine Est Cr Clr Drug Dosing Est GFR ( Amer) Est GFR (Non-Af Amer) BUN/Creatinine Ratio Glucose Calcium Total Bilirubin AST ALT Alkaline Phosphatase Troponin I < 0.015 Total Protein Albumin Globulin Albumin/Globulin Ratio Lipase Specimen Hemolysis Urine Color Urine Appearance Urine pH Ur Specific [place] Urine Protein Urine Glucose (UA) Urine Ketones Urine Blood Urine Nitrite Urine Bilirubin Urine Urobilinogen Ur Leukocyte Esterase Urine WBC (Auto) Urine RBC (Auto) U Hyaline Cast (Auto) U Epithel Cells (Auto) Urine Bacteria (Auto) Code Status & VTE Plan Code Status Full code VTE Prophylaxis Plan VTE Prophylaxis will be ordered: Yes
[2020-03-19] MEDS ORDERED: DEXTROSE 50% 50 ML SYRINGE IV PRN (19:05)
[2020-03-19] MEDS ORDERED: TIZANIDINE HCL 4 MG TABLET PO PRN (19:05)
[2020-03-19] MEDS ORDERED: GLUCOSE 40% GEL 15 GM TUBE PO PRN (19:05)
[2020-03-19] MEDS ORDERED: GLUCAGON FOR INJ 1 MG VIAL SQ PRN (19:05)
[2020-03-19] MEDS ORDERED: ACETAMINOPHEN 325 MG TAB PO PRN (19:05)
[2020-03-19] MEDS ORDERED: PANTOPRAZOLE BOLUS/DRIP 1 EA IV STA (19:05)
[2020-03-19] MEDS ORDERED: PROMETHAZINE HCL 6.25 MG in SODIUM CHLORIDE 0.9% 50 ML IV PRN (19:05)
[2020-03-19] MEDS ORDERED: PROPRANOLOL HCL 10 MG TAB PO PRN (19:05)
[2020-03-19] MEDS ORDERED: GLUCOSE 10 TABS/TUBE PO PRN (19:05)
[2020-03-19] MEDS ORDERED: PANTOprazole 80 MG in DEXTROSE 5% 100 ML IV ONE (19:30)
[2020-03-19] MEDS: D5W AND NSS 1,000 ML IV SCH (19:32)
[2020-03-19] MEDS: SUCRALFATE 1 GM TAB PO SCH (20:26)
[2020-03-19] MEDS: AMITRIPTYLINE HCL 25 MG TAB PO SCH (20:26)
[2020-03-19] MEDS: GABAPENTIN 400 MG CAP PO SCH (20:26)
[2020-03-19] MEDS: TOPIRAMATE 50 MG TAB PO SCH (20:27)
[2020-03-19] MEDS: MoRPHine SULFATE 4 MG/ML 1 ML CARP\\VIAL IV PRN (20:32)
[2020-03-19] MEDS: PANTOprazole 40 MG in DEXTROSE 5% 100 ML IV SCH (20:43)
[2020-03-19] MEDS ORDERED: INSULIN ASPART 100 UNITS/ML 3 ML PEN SC SCH (21:00)
[2020-03-19] MEDS ORDERED: Nursing to Pharmacy Communication ONE (23:17)
[2020-03-20] MEDS: MoRPHine SULFATE 4 MG/ML 1 ML CARP\\VIAL IV PRN ×2 (01:09→15:40)
[2020-03-20] MEDS: PANTOprazole 40 MG in DEXTROSE 5% 100 ML IV SCH ×5 (01:23→20:40)
[2020-03-20] MEDS: LEVOTHYROXINE SODIUM 100 MCG TABLET PO SCH (05:39)
[2020-03-20] MEDS: INSULIN ASPART 100 UNITS/ML 3 ML PEN SC SCH ×4 (05:49→20:41)
[2020-03-20] MEDS: D5W AND NSS 1,000 ML IV SCH (07:47)
[2020-03-20] MEDS: GABAPENTIN 400 MG CAP PO SCH ×3 (07:47→20:39)
[2020-03-20] MEDS: FLUTICASONE PROPIONATE NA SPR 16 GM BTL NAE SCH (07:48)
[2020-03-20] MEDS: AMLODIPINE BESYLATE 5 MG TAB PO SCH (07:48)
[2020-03-20] MEDS: lisinopriL 10 MG TAB PO SCH (07:48)
[2020-03-20] MEDS: DULOXETINE HCL 60 MG CAP PO SCH (07:48)
[2020-03-20] MEDS: SUCRALFATE 1 GM TAB PO SCH ×4 (07:50→20:39)
--- NOTE | 2020-03-20 08:55 | Gastrointestinal Consultation ---
Date of Consultation March 20, 2020 Assessment & Plan (1) Abdominal pain, acute, epigastric: -Continue IV Protonix therapy -EGD today (Last dose of Plavix was 03/14) Present on Admission?: Yes (2) Colitis: Non-specific finding of sigmoid colitis noted on most recent CT scan (without po contrast) -Will address timing of colonoscopy after EGD Present on Admission?: Yes (3) Anemia: -Continue to monitor H/H -See plan for epigastric pain Present on Admission?: Yes Supervising Physician Co-Signing Physician Notes Agree with VAUGHN Sandoval as above Abd: Soft, Tender mid-epigastric area, ND, +BS Proceed with EGD today. Continue current therapy Further recommendations to follow History of Present Illness Reason for Consultation: Possible upper GI bleed Attending Physician: Joel Munoz MD History of Present Illness Patient is a 64 yo male admitted to [facility] with epigastric abdominal pain and concern for GI bleeding. The patient was evaluated outpatient last week for abdominal pain. At the time, he had a normal H/H. He had a CT scan prior to the visit concerning for a partial small bowel obstruction vs ileus. I had ordered a repeat study. The repeat indicated gastric distention, ileus, & fecal retention. He was scheduled for an EGD for further evaluation of his abdominal pain (and dysphagia he reported at that time). Unfortunately the patient had not stopped his Plavix and the procedure needed to be postponed. In the interim, he had several ED visits. A CT scan on 03/16 indicated mild non-specific sigmoid colitis but there was no po contrast. He reports his abdominal pain worsened and he returned to the ED. He then was noted to be anemic with an H/H of 10.6/35.3. He is currently on Protonix therapy (Was on Nexium at home). He reports improvement of his symptoms already with the IV PPI. He is agreeable to endoscopic evaluation today. He is constipated, but notes he has not eaten for some time. He has a history of a duodenal stricture. Denies pertinent family history. Denies NSAID use. Allergies Allergy/AdvReac Type Severity Reaction Status Date / Time No Known Allergies Allergy U Verified 03/19/20 15:20 Home Medications Home Medications Medication Instructions Recorded Confirmed Type amitriptyline 75 mg PO HS 08/16/18 03/19/20 History morphine 30 mg PO BID 08/16/18 03/19/20 History oxycodone-acetaminophen [Percocet] 1 tab PO Q4 PRN 08/16/18 03/19/20 History promethazine 25 mg PO Q6H PRN 08/16/18 03/19/20 History atorvastatin 80 mg PO QAM 09/12/18 03/19/20 History clopidogrel 75 mg PO QAM 09/12/18 03/19/20 History pantoprazole 40 mg PO BID 09/12/18 03/19/20 History tizanidine 8 mg PO TID 09/12/18 03/19/20 History gabapentin 400 mg capsule 400 mg PO TID 09/19/18 03/19/20 History Excedrin Extra Strength 2 tab PO QAM 09/21/18 03/19/20 History metformin 500 mg PO QAM 12/25/18 03/19/20 History azelastine 2 spray INTRANASAL BID PRN 03/31/19 03/19/20 History mometasone 2 spray INTRANASAL DAILY 03/31/19 03/19/20 History duloxetine 60 mg PO QAM 04/06/19 03/19/20 History lisinopril 10 mg PO QAM 04/06/19 03/19/20 History testosterone cypionate 200 mg SUBCUT UD 04/06/19 03/19/20 History topiramate 50 mg PO HS 04/06/19 03/19/20 History levothyroxine 100 mcg PO QAM 04/08/19 03/19/20 History propranolol 10 mg tablet 10 mg PO TID PRN 09/24/19 03/19/20 History Excedrin Pm Headache 2 tab PO HS 10/18/19 03/19/20 History clobetasol 1 applic TOPICAL BID PRN 10/18/19 03/19/20 History prednisone 5 mg PO Q OTHER DAY 10/18/19 03/19/20 History Excedrin Extra Strength 2 tab PO DAILY PRN 03/08/20 03/19/20 History amlodipine [Norvasc] 2.5 mg PO QAM 03/08/20 03/19/20 History dicyclomine 10 mg PO TID 03/08/20 03/19/20 History famotidine 20 mg PO BID #20 tab 03/16/20 03/19/20 Rx metoclopramide HCl 10 mg PO Q6H PRN #14 tab 03/16/20 03/19/20 Rx sucralfate 1 gram tablet See Rx Instructions .ROUTE 03/18/20 03/19/20 Rx .COMPLEX #40 tablet Patient History Medical History Anxiety (Chronic) BPH (benign prostatic hyperplasia) (Chronic) Chronic neck pain (Chronic) Chronic steroid use Diabetes mellitus, type 2 GERD (gastroesophageal reflux disease) (Chronic) History of TIA (transient ischemic attack) (Chronic) X2-->"05/2014" & 06/2017. TAKING PLAVIX. Hyperlipidemia (Chronic) Hypertension (Chronic) Hypothyroidism (Chronic) Nausea and vomiting after administration of anesthetic agent On anticoagulant therapy plavix daily Peptic ulcer disease (Chronic) H/O Surgical History Fusion of spine (Chronic) CERVICAL AREA. UNSURE OF THE LEVELS. LIMITED ROM ALL DIRECTIONS-EASILY CAUSES NECK SPASMS. HAS BEEN INTUBATED SINCE WITHOUT ISSUES. H/O Achilles tendon repair (Chronic) x3--RIGHT FOOT H/O elbow surgery (Chronic) RIGHT ELBOW BONE SPUR REMOVAL H/O shoulder surgery (Chronic) LEFT SHOULDER BONE SPUR REMOVAL H/O: pituitary tumor (Chronic) BENIGN TUMOR REMOVED History of colonoscopy History of esophagogastroduodenoscopy (EGD) History of nasal septoplasty (Chronic) History of tonsillectomy (Chronic) S/P LASIK surgery of both eyes (Chronic) S/P UPPP (uvulopalatopharyngoplasty) (Chronic) Family History Uncle Family history of diabetes mellitus Other Hypertension No family history of adverse response to anesthesia Social History Preferred Language: Croatian Communication Ability: Effective Visual Impairment: No Limitations Hearing Ability: Normal Payroll Machine Operator Required: No Beliefs That Will Affect Care: None marital status: Single Current Living Situation: Alone Current Living Situation Comment: DOG Other Information That Helps Us Care for You: No Feels Safe at Home: Yes Safety Concerns: Feels Safe At This Time Smoking Status: Never smoker Do You Dip or Chew Tobacco: No ; Second Hand Exposure: No ; Tobacco Cessation Education Requested by Patient: No Hx Alcohol Use: No Hx Substance Use: No Review of Systems Constitutional: no fever and no chills Eyes: no problem reported Ear, Nose, Mouth, Throat: no problem reported Respiratory: no cough and no dyspnea Cardiovascular: no chest pain Gastrointestinal: + abdominal pain and + heartburn; no blood in stools Musculoskeletal: + neck pain Integumentary: no rash Neurologic: no dizziness Psychiatric: no problem reported Physical Exam Constitutional: WD/WN, vitals as above Eyes: PERRL, conjunctivae normal, anicteric sclerae ENMT: external ear and nose normal, oropharynx normal Neck: normal visual inspection Respiratory: normal respiratory effort, lungs clear to auscultation Cardiovascular: RRR, no murmur, no edema Gastrointestinal (Abdomen): normal bowel sounds, soft, nontender, no hepatosplenomegaly Musculoskeletal: no cyanosis or clubbing, extremities motor strength 5/5 Skin: no rashes, warm and dry Psychiatric: A+Ox3, euthymic affect Results & Data ([facility]) Vital Signs (Past 12 Hours) Vital Signs Temp Pulse Pulse Resp BP Pulse Ox 03/20/20 07:00 36.4 C L 76 18 126/64 98 03/20/20 03:36 37 C 56 L 16 142/79 H 96 03/20/20 01:15 89 03/19/20 23:31 36.9 C 94 H 16 149/81 H 98 03/19/20 21:50 36.9 C 104 H 18 144/74 H 94 PG Care Time/CCT Total # of Minutes Spent Total Time Spent with Patient: Total time spent is greater than 50% in coordination of care (as documented) at patient's floor/unit and/or counseling patient: Coding Level of Care Code 60774 Inpt Consult Level 4 Diagnoses Abdominal pain, acute, epigastric R10.13 Colitis K52.9 Anemia D64.9 Anemia type: unspecified type (1) Anemia Anemia type: unspecified type Qualified Code(s): D64.9 - Anemia, unspecified
[2020-03-20] MEDS ORDERED: predniSONE 5 MG TAB PO SCH (09:00)
--- NOTE | 2020-03-20 13:05 | Anesthesiology Consultation ---
Date of Service March 20, 2020 Assessment & Plan (1) Encounter for pre-operative examination: Chart Review Chart Review: Acceptable Risk for Surgery and Patient NOT seen in Pre Admission Testing Consults Requested none ASA ASA3 Proposed Anesthesia Anesthesia Type: MAC Risk / Benefits Reviewed With: PT / POA / Parent / Guardian, Accepts Plan and Informed Consent Obtained History Surgery Operation Date: 03/20/20 17:00 Proposed Procedures p Esophagogastroduodenoscopy Dr Dahl - Chaitanya Rushing Case, DO Height/Weight Height: 5 ft 9 in Weight: 68.9 kg Allergies Allergy/AdvReac Type Severity Reaction Status Date / Time No Known Allergies Allergy U Verified 03/19/20 15:20 Medications Home Medications Medication Instructions Recorded Confirmed Last Taken amitriptyline 75 mg PO HS 08/16/18 03/19/20 03/16/20 morphine 30 mg PO BID 08/16/18 03/19/20 03/16/20 oxycodone-acetaminophen [Percocet] 1 tab PO Q4 PRN 08/16/18 03/19/20 04/04/19 promethazine 25 mg PO Q6H PRN 08/16/18 03/19/20 03/30/19 atorvastatin 80 mg PO QAM 09/12/18 03/19/20 03/16/20 clopidogrel 75 mg PO QAM 09/12/18 03/19/20 03/16/20 pantoprazole 40 mg PO BID 09/12/18 03/19/20 03/19/20 tizanidine 8 mg PO TID 09/12/18 03/19/20 03/16/20 gabapentin 400 mg capsule 400 mg PO TID 09/19/18 03/19/20 03/16/20 Excedrin Extra Strength 2 tab PO QAM 09/21/18 03/19/20 03/16/20 metformin 500 mg PO QAM 12/25/18 03/19/20 03/16/20 azelastine 2 spray INTRANASAL BID PRN 03/31/19 03/19/20 04/05/19 08:00 mometasone 2 spray INTRANASAL DAILY 03/31/19 03/19/20 03/16/20 duloxetine 60 mg PO QAM 04/06/19 03/19/20 03/16/20 lisinopril 10 mg PO QAM 0603/19/20 03/16/20 testosterone cypionate 200 mg SUBCUT UD 04/06/19 03/19/20 03/10/19 topiramate 50 mg PO HS 04/06/19 03/19/20 03/16/20 levothyroxine 100 mcg PO QAM 04/08/19 03/19/20 03/16/20 propranolol 10 mg tablet 10 mg PO TID PRN 09/24/19 03/19/20 Unknown Excedrin Pm Headache 2 tab PO HS 10/18/19 03/19/20 03/16/20 clobetasol 1 applic TOPICAL BID PRN 10/18/19 03/19/20 Unknown prednisone 5 mg PO Q OTHER DAY 10/18/19 03/19/20 03/16/20 Excedrin Extra Strength 2 tab PO DAILY PRN 03/08/20 03/19/20 Unknown amlodipine [Norvasc] 2.5 mg PO QAM 03/08/20 03/19/20 03/16/20 dicyclomine 10 mg PO TID 03/08/20 03/19/20 03/16/20 famotidine 20 mg PO BID #20 tab 03/16/20 03/19/20 03/18/20 metoclopramide HCl 10 mg PO Q6H PRN #14 tab 03/16/20 03/19/20 03/18/20 sucralfate 1 gram tablet See Rx Instructions .ROUTE 03/18/20 03/19/20 Unknown .COMPLEX #40 tablet Active Medications Generic Name Dose Route Start Last Admin Trade Name Freq PRN Reason Stop Dose Admin Amitriptyline HCl 75 mg 03/19/20 21:00 03/19/20 20:26 Elavil PO 04/18/20 20:59 75 mg HS KATIE Administration Amlodipine Besylate 2.5 mg 03/20/20 09:00 03/20/20 07:48 Norvasc PO 04/19/20 08:59 2.5 mg QAM KATIE Administration Duloxetine HCl 60 mg 03/20/20 09:00 03/20/20 07:48 Cymbalta PO 04/19/20 08:59 60 mg QAM KATIE Administration Fentanyl Citrate 50 mcg 03/19/20 13:30 03/19/20 14:35 Fentanyl Citrate IV 04/02/20 13:29 50 mcg Q15M PRN Administration Pain Fluticasone Propionate 2 sprays 03/20/20 09:00 03/20/20 07:48 Flonase DENNIS 04/19/20 08:59 2 sprays DAILY KATIE Administration Gabapentin 400 mg 03/19/20 21:00 03/20/20 07:47 Neurontin PO 04/18/20 20:59 400 mg TID KATIE Administration Pantoprazole Sodium 40 mg/ 100 mls @ 20 mls/hr 03/19/20 19:45 03/20/20 10:28 Dextrose IV 04/18/20 19:44 8 mg/hr Q5H KATIE 20 mls/hr Administration 8 MG/HR Dextrose/Sodium Chloride 1,000 mls @ 80 mls/hr 03/19/20 19:05 03/20/20 07:47 D5w And Nss IV 04/18/20 19:04 80 mls/hr .[id number] KATIE Administration Insulin Aspart 0 units 03/20/20 06:00 03/20/20 12:26 Novolog Flexpen SC 04/19/20 05:59 Not Given Q6 KATIE Levothyroxine Sodium 100 mcg 03/20/20 06:30 03/20/20 05:39 Synthroid PO 04/19/20 06:29 100 mcg DAILYBB KATIE Administration Lisinopril 10 mg 03/20/20 09:00 03/20/20 07:48 Zestril PO 04/19/20 08:59 10 mg QAM KATIE Administration Morphine Sulfate 4 mg 03/19/20 19:05 03/20/20 01:09 Morphine Sulfate IV 04/02/20 19:04 4 mg Q4 PRN Administration Pain Prednisone 5 mg 03/20/20 09:00 03/20/20 07:47 Prednisone PO 04/19/20 08:59 5 mg Q2D@0900 KATIE Administration Sucralfate 1 gm 03/19/20 21:00 03/20/20 12:25 Carafate Tab PO 04/18/20 20:59 Not Given ACHS KATIE Tizanidine HCl 8 mg 03/19/20 19:05 03/19/20 23:35 Zanaflex PO 04/18/20 19:04 8 mg TID PRN Administration Muscle Spasm Topiramate 50 mg 03/19/20 21:00 03/19/20 20:27 Topamax PO 04/18/20 20:59 50 mg HS KATIE Administration NPO Date Last Intake of Fluids: 03/19/20 Time Last Intake of Fluids: 20:00 Date Last Intake of Solids: 03/19/20 Time Last Intake of Solids: 20:00 Past Medical History Medical History Anxiety (Chronic) BPH (benign prostatic hyperplasia) (Chronic) Chronic neck pain (Chronic) Chronic steroid use Diabetes mellitus, type 2 GERD (gastroesophageal reflux disease) (Chronic) History of TIA (transient ischemic attack) (Chronic) X2-->"05/2014" & 06/2017. TAKING PLAVIX. Hyperlipidemia (Chronic) Hypertension (Chronic) Hypothyroidism (Chronic) Nausea and vomiting after administration of anesthetic agent On anticoagulant therapy plavix daily Peptic ulcer disease (Chronic) H/O Exercise / Class Metabolic Activity II 4-5 Yardwork/Stairs/Walk up hill Past Family History Family History Uncle Family history of diabetes mellitus Other Hypertension No family history of adverse response to anesthesia Past Surgical History Surgical History Fusion of spine (Chronic) CERVICAL AREA. UNSURE OF THE LEVELS. LIMITED ROM ALL DIRECTIONS-EASILY CAUSES NECK SPASMS. HAS BEEN INTUBATED SINCE WITHOUT ISSUES. H/O Achilles tendon repair (Chronic) x3--RIGHT FOOT H/O elbow surgery (Chronic) RIGHT ELBOW BONE SPUR REMOVAL H/O shoulder surgery (Chronic) LEFT SHOULDER BONE SPUR REMOVAL H/O: pituitary tumor (Chronic) BENIGN TUMOR REMOVED History of colonoscopy History of esophagogastroduodenoscopy (EGD) History of nasal septoplasty (Chronic) History of tonsillectomy (Chronic) S/P LASIK surgery of both eyes (Chronic) S/P UPPP (uvulopalatopharyngoplasty) (Chronic) Past Anesthesia History No Hx of Anesthesia Complications and No Family Hx of Anesthesia Complications History of PONV No Hx of PONV and No Hx of Motion Sickness Social History Smoking Status: Never smoker Do You Dip or Chew Tobacco: No Hx Alcohol Use: No Hx Substance Use: No substance use type: does not use Physical Exam Vital Signs Last Vital Signs Temp 36.6 C 03/20/20 12:59 Pulse 109 H 03/20/20 12:59 Resp 16 03/20/20 12:59 BP 143/81 H 03/20/20 12:59 Pulse Ox 99 03/20/20 12:59 ENMT Mouth: no dentition abnormality Thyromental Distance: > or= 3.5 Finger Breadths Mallampati Class: II Neck normal visual inspection Respiratory normal respiratory effort Auscultation: lungs clear to auscultation bilaterally Cardiovascular Rate/Rhythm: regular rate and regular rhythm Psychiatric Orientation: alert Testing Laboratory Results 03/20/20 00:56 03/19/20 13:15 Urine Color Yellow 03/19/20 17:15 Urine Appearance Turbid (Clear) A 03/19/20 17:15 Urine pH 7.0 (4.5-7.5) 03/19/20 17:15 Ur Specific [place] 1.021 (1.000-1.030) 03/19/20 17:15 Urine Protein Negative (Negative) 03/19/20 17:15 Urine Glucose (UA) Negative (Negative) 03/19/20 17:15 Urine Ketones Trace (Negative) H 03/19/20 17:15 Urine Nitrite Negative (Negative) 03/19/20 17:15 Ur Leukocyte Esterase Negative (Negative) 03/19/20 17:15 Urine WBC (Auto) 1-5 /hpf (0-5) 03/19/20 17:15 Urine RBC (Auto) 5-10 /hpf (0-4) H 03/19/20 17:15 U Hyaline Cast (Auto) 1-5 /lpf (0-5) 03/19/20 17:15 U Epithel Cells (Auto) 10-20 /lpf (0-5) H 03/19/20 17:15 Urine Bacteria (Auto) Negative (Negative) 03/19/20 17:15 03/20/20 03/20/20 03/20/20 11:46 07:42 05:42 POC Glucose 102 H 114 H 122 H
[2020-03-20] MEDS ORDERED: LIDOCAINE HCL 2% 2 ML VIAL/AMP(20MG/ML) INFIL ONE (13:07)
[2020-03-20] MEDS ORDERED: PROPOFOL IV EMULSION 10 MG/ML 20 ML VIAL IV ONE (13:07)
--- NOTE | 2020-03-20 14:42 | Electrocardiogram Report ---
Test Reason : Blood Pressure : / mmHG Vent. Rate : 107 BPM Atrial Rate : 107 BPM P-R Int : 142 ms QRS Dur : 092 ms QT Int : 334 ms P-R-T Axes : 039 -17 057 degrees QTc Int : 445 ms Sinus tachycardia Nonspecific ST abnormality Abnormal ECG When compared with ECG of 16-MAR-2020 14:21, No significant change was found Confirmed by Claudio Blanca ([id number]) on 03/20/2020 2:41:54 PM Referred By: REFERRED SELF Confirmed By:Claudio Blanca
--- NOTE | 2020-03-20 14:47 | Hospitalist Progress Note ---
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 Epigastric pain Possible upper GI bleed Sigmoid Colitis -CT ABD:Mild nonspecific sigmoid colitis. No evidence for abscess collection or obstruction. Nonobstructive bowel pattern. -Planned for EGD today -Continue IV Protonix -Appreciate GI Input -Monitor H&H -Continue Carafate -Plavix held for now Chest pain Likely non cardiac Origin secondary to above CXR:Negative chest. ECHO: No wall motion abnormality noted. Cardiac enzymes negative Resolved DM Type II Hold metformin Continue Insulin while hospitalized Hypertension Stable Continue lisinopril, amlodipine Pituitary macroadenoma, glucocorticoid deficiency, central hypothyroidism Continue prednisone, levothyroxine TIA Resume plavix if no signs of bleeding DVT Px: Re: possible upper GI bleed CODE STATUS Full code Disposition Expect to discharge home when medically stable. Admission and Anticipated Discharge Date Admission Date: March 19, 2020 Subjective Patient is seen and examined at bedside Abdominal pain is better today Plan for EGD today Denies any nausea, vomiting, diarrhea States having chronic neck pain unchanged Offers no other complaints Review of Systems Review of Systems: All systems reviewed & are unremarkable except as noted in HPI & below Physical Exam Physical Exam: Physical Exam: Vitals signs as noted above General Appearance:Moderately built and nourished, no apparent distress Head: normocephalic, Atraumatic Eyes: normal inspection, EOMI Neck: supple, Trachea midline Respiratory/Chest: Normal breath sounds, CTA, No accessory muscle use Cardiovascular: S1, S2, No murmur Abdomen/GI:Soft, mild tender, Bowel sounds present Extremities/Musculoskelatal:normal inspection, no edema Neurologic/Psych:AAOX3, grossly no focal neurological deficits Skin: normal color, warm Results & Data Results & Data ([facility]) Vital Signs (Past 12 Hours) Vital Signs Temp Pulse Resp BP Pulse Ox 03/20/20 14:02 100 H 16 137/73 99 03/20/20 13:47 90 16 110/49 L 99 03/20/20 13:33 36.4 C L 97 H 16 95/42 L 99 03/20/20 12:59 36.6 C 109 H 16 143/81 H 99 03/20/20 07:00 36.4 C L 76 18 126/64 98 03/20/20 03:36 37 C 56 L 16 142/79 H 96 Laboratory Results Short CBC 03/19/20 03/20/20 Range/Units 19:20 00:56 Hgb 11.6 L 10.6 L (14.0-18.0) g/dL Cardiac Enzymes 03/19/20 03/20/20 Range/Units 19:20 00:56 Troponin I < 0.015 < 0.015 (0-0.045) ng/ml Urine 03/19/20 Range/Units 17:15 Urine Color Yellow Urine Appearance Turbid A (Clear) Urine pH 7.0 (4.5-7.5) Ur Specific [place] 1.021 (1.000-1.030) Urine Protein Negative (Negative) Urine Glucose (UA) Negative (Negative)
--- NOTE | 2020-03-20 15:15 | Anesthesiology Progress Note ---
Date of Service March 20, 2020 Anesthesia Post Procedure Vital Signs Vital Signs: Temp Pulse Pulse Resp BP BP Pulse Ox 03/20/20 14:02 100 H 16 137/73 99 03/20/20 13:47 90 16 110/49 L 99 03/20/20 13:33 36.4 C L 97 H 16 95/42 L 99 03/20/20 12:59 36.6 C 109 H 16 143/81 H 99 03/20/20 07:00 36.4 C L 76 18 126/64 98 03/20/20 03:36 37 C 56 L 16 142/79 H 96 03/20/20 01:15 89 03/19/20 23:31 36.9 C 94 H 16 149/81 H 98 03/19/20 21:50 36.9 C 104 H 18 144/74 H 94 03/19/20 19:05 36.9 C 104 H 18 144/74 H 94 03/19/20 19:04 96 H 03/19/20 18:31 83 14 100 03/19/20 18:30 89 18 154/72 H 100 03/19/20 18:20 97 H 19 100 03/19/20 18:10 95 H 15 100 03/19/20 18:01 92 H 16 99 03/19/20 18:00 79 16 157/76 H 100 03/19/20 17:50 90 17 100 03/19/20 17:40 99 H 16 100 03/19/20 17:31 91 H 15 100 03/19/20 17:30 74 14 146/74 H 100 03/19/20 17:20 88 14 100 03/19/20 17:16 83 13 100 03/19/20 15:50 97 H 14 100 03/19/20 15:40 86 20 99 03/19/20 15:31 104 H 28 H 161/64 H 91 03/19/20 15:30 93 H 15 94 03/19/20 15:20 73 17 97 Pain Intensity Upper Abdomen: Pain Intensity: 2 Neck: Pain Intensity: 4 Transfer of Care Handoff Completed per policy Notes Mental Status: alert / awake / arousable Patient Amnestic to Procedure: Yes Nausea / Vomiting: adequately controlled Pain: adequately controlled Airway Patency, RR, SpO2: stable & adequate BP & HR: stable & adequate Hydration State: stable & adequate Anesthetic Complications: no major complications apparent
[2020-03-20 16:13] LABS: Hematocrit (blood only) 36.8 % (42-52); Hemoglobin 12.2 g/dL (14.0-18.0)
[2020-03-20] MEDS: TOPIRAMATE 50 MG TAB PO SCH (20:39)
[2020-03-20] MEDS: AMITRIPTYLINE HCL 25 MG TAB PO SCH (20:39)
[2020-03-21] MEDS: PANTOprazole 40 MG in DEXTROSE 5% 100 ML IV SCH ×3 (01:31→11:31)
[2020-03-21] MEDS ORDERED: LORazepam 0.5 MG TAB PO STA (02:18)
[2020-03-21] MEDS: LEVOTHYROXINE SODIUM 100 MCG TABLET PO SCH (05:35)
[2020-03-21 07:16] LABS: Hematocrit (blood only) 35.1 % (42-52); Hemoglobin 11.8 g/dL (14.0-18.0); Mean Corpuscular Hemoglobin 29.6 pg (25-34); Mean Corpuscular Hgb Conc 33.6 g/dL (32-36); Mean Corpuscular Volume 88.2 fL (80-100); Mean Platelet Volume 8.8 fL (7.4-10.4); Platelet Count 325 K/uL (130-400); RDW Coefficient of Variation 14.2 % (11.5-14.5); RDW Standard Deviation 45.6 fL (36.4-46.3); Red Blood Count 3.98 M/uL (4.7-6.1); White Blood Count 10.18 K/uL (4.8-10.8)
[2020-03-21 07:50] LABS: BUN Creatinine Ratio 9.6 (10-20); Calcium 8.7 mg/dl (8.5-10.1); Creatinine Clr Calc Pharmacy 78.3 ml/min; Est GFR (African American) 102.9; Est GFR (Non-African American) 88.8; Phosphorus 2.4 mg/dl (2.5-4.9); Potassium 3.3 mmol/L (3.5-5.1)
[2020-03-21] MEDS: AMLODIPINE BESYLATE 5 MG TAB PO SCH (08:29)
[2020-03-21] MEDS: GABAPENTIN 400 MG CAP PO SCH ×2 (08:29→13:54)
[2020-03-21] MEDS: lisinopriL 10 MG TAB PO SCH (08:30)
[2020-03-21] MEDS: FLUTICASONE PROPIONATE NA SPR 16 GM BTL NAE SCH (08:30)
[2020-03-21] MEDS: DULOXETINE HCL 60 MG CAP PO SCH (08:30)
[2020-03-21] MEDS: SUCRALFATE 1 GM TAB PO SCH ×3 (08:30→15:32)
[2020-03-21] MEDS: INSULIN ASPART 100 UNITS/ML 3 ML PEN SC SCH ×2 (08:31→13:03)
[2020-03-21] MEDS ORDERED: POT PHOSPHATE MONOBASIC W/ SOD TAB PO SCH (09:15)
[2020-03-21] MEDS ORDERED: POTASSIUM CHLORIDE 20 MEQ TABCR PO ONE (09:15)
--- NOTE | 2020-03-21 10:07 | Anesthesiology Consultation ---
Date of Service March 21, 2020 Assessment & Plan Chart Review Chart Review: clerk entry level initiated History Surgery Operation Date: 03/20/20 17:00 Proposed Procedures p Esophagogastroduodenoscopy Dr Hesham Dahl, DO Height/Weight Height: 5 ft 9 in Weight: 67.5 kg Allergies Allergy/AdvReac Type Severity Reaction Status Date / Time No Known Allergies Allergy U Verified 03/19/20 15:20 Medications Home Medications Medication Instructions Recorded Confirmed Last Taken amitriptyline 75 mg PO HS 08/16/18 03/19/20 03/16/20 morphine 30 mg PO BID 08/16/18 03/19/20 03/16/20 oxycodone-acetaminophen [Percocet] 1 tab PO Q4 PRN 08/16/18 03/19/20 04/04/19 promethazine 25 mg PO Q6H PRN 08/16/18 03/19/20 03/30/19 atorvastatin 80 mg PO QAM 09/12/18 03/19/20 03/16/20 clopidogrel 75 mg PO QAM 09/12/18 03/19/20 03/16/20 pantoprazole 40 mg PO BID 09/12/18 03/19/20 03/19/20 tizanidine 8 mg PO TID 09/12/18 03/19/20 03/16/20 gabapentin 400 mg capsule 400 mg PO TID 09/19/18 03/19/20 03/16/20 Excedrin Extra Strength 2 tab PO QAM 09/21/18 03/19/20 03/16/20 metformin 500 mg PO QAM 12/25/18 03/19/20 03/16/20 azelastine 2 spray INTRANASAL BID PRN 03/31/19 03/19/20 04/05/19 08:00 mometasone 2 spray INTRANASAL DAILY 03/31/19 03/19/20 03/16/20 duloxetine 60 mg PO QAM 04/06/19 03/19/20 03/16/20 lisinopril 10 mg PO QAM 04/06/19 03/19/20 03/16/20 testosterone cypionate 200 mg SUBCUT UD 04/06/19 03/19/20 03/10/19 topiramate 50 mg PO HS 04/06/19 03/19/20 03/16/20 levothyroxine 100 mcg PO QAM 04/08/19 03/19/20 03/16/20 propranolol 10 mg tablet 10 mg PO TID PRN 09/24/19 03/19/20 Unknown Excedrin Pm Headache 2 tab PO HS 10/18/19 03/19/20 03/16/20 clobetasol 1 applic TOPICAL BID PRN 10/18/19 03/19/20 Unknown prednisone 5 mg PO Q OTHER DAY 10/18/19 03/19/20 03/16/20 Excedrin Extra Strength 2 tab PO DAILY PRN 03/08/20 03/19/20 Unknown amlodipine [Norvasc] 2.5 mg PO QAM 03/08/20 03/19/20 03/16/20 dicyclomine 10 mg PO TID 03/08/20 03/19/20 03/16/20 famotidine 20 mg PO BID #20 tab 03/16/20 03/19/20 03/18/20 metoclopramide HCl 10 mg PO Q6H PRN #14 tab 03/16/20 03/19/20 03/18/20 sucralfate 1 gram tablet See Rx Instructions .ROUTE 03/18/20 03/19/20 Unknown .COMPLEX #40 tablet Active Medications Generic Name Dose Route Start Last Admin Trade Name Rhysq PRN Reason Stop Dose Admin Amitriptyline HCl 75 mg 03/19/20 21:00 03/20/20 20:39 Elavil PO 04/18/20 20:59 75 mg HS KATIE Administration Amlodipine Besylate 2.5 mg 03/20/20 09:00 03/21/20 08:29 Norvasc PO 04/19/20 08:59 2.5 mg QAM KATIE Administration Duloxetine HCl 60 mg 03/20/20 09:00 03/21/20 08:30 Cymbalta PO 04/19/20 08:59 60 mg QAM KATIE Administration Fentanyl Citrate 50 mcg 03/19/20 13:30 03/19/20 14:35 Fentanyl Citrate IV 04/02/20 13:29 50 mcg Q15M PRN Administration Pain Fluticasone Propionate 2 sprays 03/20/20 09:00 03/21/20 08:30 Flonase DENNIS 04/19/20 08:59 2 sprays DAILY KATIE Administration Gabapentin 400 mg 03/19/20 21:00 03/21/20 08:29 Neurontin PO 04/18/20 20:59 400 mg TID KATIE Administration Pantoprazole Sodium 40 mg/ 100 mls @ 20 mls/hr 03/19/20 19:45 03/21/20 06:37 Dextrose IV 04/18/20 19:44 8 mg/hr Q5H KATIE 20 mls/hr Administration 8 MG/HR Insulin Aspart 0 units 03/20/20 16:30 03/21/20 08:31 Novolog Flexpen SC 04/19/20 16:29 Not Given ACHS KATIE Levothyroxine Sodium 100 mcg 03/20/20 06:30 03/21/20 05:35 Synthroid PO 04/19/20 06:29 100 mcg DAILYBB KATIE Administration Lisinopril 10 mg 03/20/20 09:00 03/21/20 08:30 Zestril PO 04/19/20 08:59 10 mg QAM KATIE Administration Morphine Sulfate 4 mg 03/19/20 19:05 03/20/20 15:40 Morphine Sulfate IV 04/02/20 19:04 4 mg Q4 PRN Administration Pain Potassium Phosphate 1 tab 03/21/20 09:15 03/21/20 09:54 Phospha 250 Neutral 155-852-130 Mg PO 03/21/20 21:01 1 tab BID KATIE Administration Prednisone 5 mg 03/20/20 09:00 03/20/20 07:47 Prednisone PO 04/19/20 08:59 5 mg Q2D@0900 KATIE Administration Sucralfate 1 gm 03/19/20 21:00 03/21/20 08:30 Carafate Tab PO 04/18/20 20:59 1 gm ACHS KATIE Administration Tizanidine HCl 8 mg 03/19/20 19:05 03/19/20 23:35 Zanaflex PO 04/18/20 19:04 8 mg TID PRN Administration Muscle Spasm Topiramate 50 mg 03/19/20 21:00 03/20/20 20:39 Topamax PO 04/18/20 20:59 50 mg HS KATIE Administration NPO Date Last Intake of Fluids: 03/19/20 Time Last Intake of Fluids: 20:00 Date Last Intake of Solids: 03/19/20 Time Last Intake of Solids: 20:00 Past Medical History Medical History Anxiety (Chronic) BPH (benign prostatic hyperplasia) (Chronic) Chronic neck pain (Chronic) Chronic steroid use Diabetes mellitus, type 2 GERD (gastroesophageal reflux disease) (Chronic) History of TIA (transient ischemic attack) (Chronic) X2-->"05/2014" & 06/2017. TAKING PLAVIX. Hyperlipidemia (Chronic) Hypertension (Chronic) Hypothyroidism (Chronic) Nausea and vomiting after administration of anesthetic agent On anticoagulant therapy plavix daily Peptic ulcer disease (Chronic) H/O Past Family History Family History Uncle Family history of diabetes mellitus Other Hypertension No family history of adverse response to anesthesia Past Surgical History Surgical History Fusion of spine (Chronic) CERVICAL AREA. UNSURE OF THE LEVELS. LIMITED ROM ALL DIRECTIONS-EASILY CAUSES NECK SPASMS. HAS BEEN INTUBATED SINCE WITHOUT ISSUES. H/O Achilles tendon repair (Chronic) x3--RIGHT FOOT H/O elbow surgery (Chronic) RIGHT ELBOW BONE SPUR REMOVAL H/O shoulder surgery (Chronic) LEFT SHOULDER BONE SPUR REMOVAL H/O: pituitary tumor (Chronic) BENIGN TUMOR REMOVED History of colonoscopy History of esophagogastroduodenoscopy (EGD) History of nasal septoplasty (Chronic) History of tonsillectomy (Chronic) S/P LASIK surgery of both eyes (Chronic) S/P UPPP (uvulopalatopharyngoplasty) (Chronic) Social History Smoking Status: Never smoker Do You Dip or Chew Tobacco: No Hx Alcohol Use: No Hx Substance Use: No substance use type: does not use Physical Exam Vital Signs Last Vital Signs Temp 36.6 C 03/21/20 07:55 Pulse 86 03/21/20 07:55 Resp 16 03/21/20 07:55 BP 146/73 H 03/21/20 07:55 Pulse Ox 98 03/21/20 07:55 Testing Laboratory Results 03/21/20 06:49 03/21/20 06:49 Urine Color Yellow 03/19/20 17:15 Urine Appearance Turbid (Clear) A 03/19/20 17:15 Urine pH 7.0 (4.5-7.5) 03/19/20 17:15 Ur Specific [place] 1.021 (1.000-1.030) 03/19/20 17:15 Urine Protein Negative (Negative) 03/19/20 17:15 Urine Glucose (UA) Negative (Negative) 03/19/20 17:15 Urine Ketones Trace (Negative) H 03/19/20 17:15 Urine Nitrite Negative (Negative) 03/19/20 17:15 Ur Leukocyte Esterase Negative (Negative) 03/19/20 17:15 Urine WBC (Auto) 1-5 /hpf (0-5) 03/19/20 17:15 Urine RBC (Auto) 5-10 /hpf (0-4) H 03/19/20 17:15 U Hyaline Cast (Auto) 1-5 /lpf (0-5) 03/19/20 17:15 U Epithel Cells (Auto) 10-20 /lpf (0-5) H 03/19/20 17:15 Urine Bacteria (Auto) Negative (Negative) 03/19/20 17:15 03/21/20 07:35 POC Glucose 90 Echocardiogram Date: 03/20/20 EF: 55-60%
[2020-03-21] MEDS: MoRPHine SULFATE 4 MG/ML 1 ML CARP\\VIAL IV PRN (10:56)
--- NOTE | 2020-03-21 11:51 | GI REPORT ---
Patient Name: Roman Dillard Procedure Date: 03/20/2020 1:14 PM Date of : 1955 Admit Type: Inpatient Age: 64 Gender: Male Attending MD: Chaitanya Dahl DO Procedure: Upper GI endoscopy Providers: Chaitanya Dahl DO Referring MD: Joel Munoz Md Indications: Epigastric abdominal pain, Nausea with vomiting Medicines: Monitored Anesthesia Care Complications: No immediate complications. Estimated Blood Loss: Estimated blood loss: none. Procedure: Pre-Anesthesia Assessment: - Prior to the procedure, a History and Physical was performed, and patient medications and allergies were reviewed. The patient's tolerance of previous anesthesia was also reviewed. The risks and benefits of the procedure and the sedation options and risks were discussed with the patient. All questions were answered, and informed consent was obtained. Prior Anticoagulants: The patient last took aspirin 4 days and Plavix (clopidogrel) 5 days prior to the procedure. ASA Grade Assessment: III - A patient with severe systemic disease. After reviewing the risks and benefits, the patient was deemed in satisfactory condition to undergo the procedure. After obtaining informed consent, the endoscope was passed under direct vision. Throughout the procedure, the patient's blood pressure, pulse, and oxygen saturations were monitored continuously. The Endoscope was introduced through the mouth, and advanced to the second part of duodenum. The upper GI endoscopy was accomplished without difficulty. The patient tolerated the procedure well. Findings: The esophagus was normal. Localized mild inflammation characterized by erythema was found in the gastric antrum. Biopsies were taken with a cold forceps for histology. The examined duodenum was normal. Impression: - Normal esophagus. - Gastritis. Biopsied. - Normal examined duodenum. Recommendation: - Resume previous diet. - Continue present medications. - Await pathology results. - Return to primary care physician as previously scheduled. Chaitanya Dahl DO 03/21/2020 11:50:49 AM This report has been signed electronically. Note Initiated On: 03/20/2020 1:14 PM Number of Addenda: 0 I attest to the content of the Intraoperative Record and orders documented therein, exceptions below {[id number]}
[2020-03-21] MEDS: CARBOHYDRATES FOR HYPOGLYCEMIA PO PRN ×2 (12:10→12:30)
[2020-03-21] MEDS ORDERED: PANTOprazole 40 MG TAB PO SCH (14:45)
--- NOTE | 2020-03-21 15:28 | Hospitalist Progress Note ---
Date of Service March 21, 2020 Assessment & Plan (1) Epigastric pain: Patient is a 64 yr male with H/O gastritis, diabetes type 2, hypertension, glucocorticoid deficiency on prednisone, presented with Epigastric pain x2 weeks. Epigastric pain Secondary to Gastritis Possible upper GI bleed Sigmoid Colitis -CT ABD:Mild nonspecific sigmoid colitis. No evidence for abscess collection or obstruction. Nonobstructive bowel pattern. S/P EGD: Normal esophagus. Gastritis. Biopsied. Normal examined duodenum. Pathology:pending Continue IV Protonix transitioned to PO BID Appreciate GI Input Monitor H&H Continue Carafate Ok to resume Plavix tomorrow as per GI Chest pain Likely non cardiac Origin secondary to above CXR:Negative chest. ECHO: No wall motion abnormality noted. Cardiac enzymes negative Resolved DM Type II Hold metformin Continue Insulin while hospitalized Hypertension Stable Continue lisinopril, amlodipine Pituitary macroadenoma, glucocorticoid deficiency, central hypothyroidism Continue prednisone, levothyroxine TIA Resume plavix tomorrow DVT Px: Re: possible upper GI bleed CODE STATUS Full code Disposition Plan to discharge home today Admission and Anticipated Discharge Date Admission Date: March 19, 2020 Subjective Patient is seen and examined at bedside Abdominal pain resolved Tolerated diet Discussed with GI today Denies any nausea, vomiting, diarrhea, chest pain, SOB Chronic neck pain unchanged Review of Systems Review of Systems: All systems reviewed & are unremarkable except as noted in HPI & below Physical Exam Physical Exam: Physical Exam: Vitals signs as noted above General Appearance:Moderately built and nourished, no apparent distress Head: normocephalic, Atraumatic Eyes: normal inspection, EOMI Neck: supple, Trachea midline Respiratory/Chest: Normal breath sounds, CTA, No accessory muscle use Cardiovascular: S1, S2, No murmur Abdomen/GI:Soft, mild tender, Bowel sounds present Extremities/Musculoskelatal:normal inspection, no edema Neurologic/Psych:AAOX3, grossly no focal neurological deficits Skin: normal color, warm Results & Data Results & Data ([facility]) Vital Signs (Past 12 Hours) Vital Signs Temp Pulse Pulse Resp BP BP Pulse Ox 03/21/20 11:49 37.1 C 106 H 20 126/71 98 03/21/20 07:55 36.6 C 86 16 146/73 H 98 03/21/20 07:07 92 H Laboratory Results Short CBC 03/20/20 03/21/20 Range/Units 15:45 06:49 WBC 10.18 (4.8-10.8) K/uL Hgb 12.2 L 11.8 L (14.0-18.0) g/dL Hct 36.8 L 35.1 L (42-52) % Plt Count 325 (130-400) K/uL BMP 03/21/20 06:49 Sodium 143 Potassium 3.3 L Chloride 113 H Carbon Dioxide 26 BUN 9 D Creatinine 0.91 Glucose 90 Calcium 8.7
--- NOTE | 2020-03-21 15:37 | Discharge Summary ---
Date of Service March 21, 2020 Admission HPI Per Admitting Provider 64-year-old male with history of diabetes, hypertension, gastritis, 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 Patient will take his usual Percocet and MS Contin with no relief. He was scheduled to have outpatient EGD but because of the progression of pain patient presented to the ER. At the ER, the patient was noted to have a hemoglobin of 12, baseline is around 15. Troponin negative x1 ER physician spoke with GI internet marketing consultant Dr. Dahl who recommends n.p.o. after midnight for EGD tomorrow. On exam, the patient is seen resting in bed, not in distress. States epigastric pain is moderate to severe. He denies having any chest pain, shortness of breath, palpitations, dizziness, no fevers or chills. No other symptoms Admission Exam Per Admitting Provider Physical Exam Physical Exam: General- oriented x 3, not in distress, speaks in sentences with no effort or accessory muscle use Eyes- anicteric Neck- no JVD Lungs- clear breath sounds bilaterally, no rales/wheezes Heart- normal rate, regular rhythm; no murmurs Abdomen- normal bowel sounds, nondistended, soft, mild epigastric tenderness Extremities- no pretibial edema, no calf tenderness Neuro- alert, oriented x 3; no gross focal neurologic deficits Skin- warm & dry Principal Diagnosis Epigastric pain Secondary to Gastritis Suspected Upper GI bleed Sigmoid Colitis Discharge Data Allergies Allergy/AdvReac Type Severity Reaction Status Date / Time No Known Allergies Allergy U Verified 03/19/20 15:20 Consultations 03/19/20 16:36 ED Decision to Admit Stat 03/19/20 16:37 Consult Gastroenterology Stat 03/19/20 19:05 Consult Gastroenterology Stat Procedures Performed Operation Date: 03/20/20 17:00 Actual Procedures p EGD Biopsy Cytology - Chaitanya Dahl, DO EGD: Findings: The esophagus was normal. Localized mild inflammation characterized by erythema was found in the gastric antrum. Biopsies were taken with a cold forceps for histology. The examined duodenum was normal. Impression: - Normal esophagus. - Gastritis. Biopsied. - Normal examined duodenum. Recommendation: - Resume previous diet. - Continue present medications. - Await pathology results. - Return to primary care physician as previously scheduled. Hospital Course (1) Epigastric pain: Patient is a 64 yr male with H/O gastritis, diabetes type 2, hypertension, glucocorticoid deficiency on prednisone, presented with Epigastric pain x2 weeks. Epigastric pain Secondary to Gastritis Possible upper GI bleed Sigmoid Colitis -CT ABD:Mild nonspecific sigmoid colitis. No evidence for abscess collection or obstruction. Nonobstructive bowel pattern. S/P EGD: Normal esophagus. Gastritis. Biopsied. Normal examined duodenum. Pathology:pending Continue IV Protonix transitioned to PO BID Appreciate GI Input Monitor H&H Continue Carafate Ok to resume Plavix as per GI Patient was advised to minimize Excedrin use. Patient is willing to try but not interested to be discontinued at this point. Chest pain Likely non cardiac Origin secondary to above CXR:Negative chest. ECHO: No wall motion abnormality noted. Cardiac enzymes negative Resolved DM Type II Hold metformin Continue Insulin while hospitalized Hypertension Stable Continue lisinopril, amlodipine Pituitary macroadenoma, glucocorticoid deficiency, central hypothyroidism Continue prednisone, levothyroxine TIA Resume plavix DVT Px: Re: possible upper GI bleed CODE STATUS Full code Disposition Plan to discharge home today Total Time Total Time Spent Total Time Spent (In Minutes): 38 Discharge Plan Discharge Items Patient Disposition: Home - Self-Care Reason For Visit: POSSIBLE UPPER GI BLEED Discharge Diagnosis: Epigastric pain Secondary to Gastritis Suspected Upper GI bleed Sigmoid Colitis Condition on Discharge: Good Activity: Resume your previous activity Exercise/Sports: Gradually increase as tolerated Non-emergency contact: Primary Care Provider and Fuel Truck Driver Call non-emergency contact if: you have any medication questions, your symptoms worsen, your pain is not controlled, your pain is worsening, your pain is unusual for you, your pain is concerning for you and you have a fever Follow-up/Referrals: Johnathan Rain MD [Primary Care Provider] - 03/26/20 10:40 am (03/26/2020 10:40 AM Provider Johnathan Rain III, MD [facility] ) Diet: Carb Consistent or DM2 Addtl Attending Provider Instructions: Follow-up with your primary care physician Dr. Rain on March 26, 2020 at 10:40 AM Follow-up with your kitchen steward Dr. Dahl in 2 weeks as recommended Your pathology from biopsy is pending at the time of discharge. Follow-up with your physician for results. Avoid NSAIDs use as recommended by your kitchen steward Seek immediate medical attention if your symptoms reoccur or worsen Pending Studies at Discharge: Yes Studies:: Pathology Stand-Alone Forms: [facility], Smoking Cessation Medications and DC Order Prescriptions: New Phospha 250 Neutral 250 mg Tablet 1 tab PO BID Qty: 6 RF: 0 Continued gabapentin 400 mg capsule 400 mg PO TID RF: 0 sucralfate 1 gram tablet See Rx Instructions .ROUTE .COMPLEX Qty: 40 RF: 0 propranolol 10 mg tablet 10 mg PO TID PRN (Reason: Tremor(S)) RF: 0 amitriptyline 75 mg tablet 75 mg PO HS RF: 0 morphine 30 mg tablet extended release 30 mg PO BID RF: 0 oxycodone-acetaminophen [Percocet] 10-325 mg Tablet 1 tab PO Q4 PRN (Reason: Pain) RF: 0 promethazine 25 mg Tablet 25 mg PO Q6H PRN (Reason: Nausea) RF: 0 atorvastatin 80 mg tablet 80 mg PO QAM RF: 0 clopidogrel 75 mg tablet 75 mg PO QAM RF: 0 pantoprazole 40 mg tablet,delayed release (DR/EC) 40 mg PO BID RF: 0 tizanidine 4 mg tablet 8 mg PO TID RF: 0 Excedrin Extra Strength 250-250-65 mg Tablet 2 tab PO QAM RF: 0 metformin 500 mg Tablet 500 mg PO QAM RF: 0 mometasone 50 mcg/actuation spray,non-aerosol 2 spray intranasal DAILY RF: 0 azelastine 137 mcg (0.1 %) aerosol,spray 2 spray intranasal BID PRN (Reason: Nasal Congestion) RF: 0 topiramate 25 mg tablet 50 mg PO HS RF: 0 lisinopril 10 mg tablet 10 mg PO QAM RF: 0 testosterone cypionate 200 mg/mL oil 200 mg subcut UD RF: 0 duloxetine 60 mg capsule,delayed release(DR/EC) 60 mg PO QAM RF: 0 levothyroxine 100 mcg tablet 100 mcg PO QAM RF: 0 Excedrin Pm Headache 2 tab PO HS RF: 0 prednisone 5 mg tablet 5 mg PO Q OTHER DAY RF: 0 clobetasol 0.05 % Ointment 1 applic TOPICAL BID PRN (Reason: Rash) RF: 0 amlodipine [Norvasc] 5 mg tablet 2.5 mg PO QAM RF: 0 Excedrin Extra Strength 250-250-65 mg Tablet 2 tab PO DAILY PRN (Reason: HEADACHE/PAIN) RF: 0 dicyclomine 10 mg capsule 10 mg PO TID RF: 0 metoclopramide HCl 10 mg tablet 10 mg PO Q6H PRN (Reason: nausea and vomiting) Qty: 14 RF: 0 famotidine 20 mg tablet 20 mg PO BID Qty: 30 RF: 0 Discharge Orders: Discharge Order (Routine); Ordered 03/21/20 Ordered By: Joel Munoz Admission Data Admit Date/Time: 03/19/20 17:04 Attending Provider: Joel Munoz Admit Provider: Luis Neves Primary Care Provider: Johnathan Rain Other Providers: Chaitanya Dahl ; Luis Neves Other Interventions: Discharge Summary Assessment (RN) Last Done: 03/21/20 16:03 DC Date/Time DO NOT enter until pt leaves facility: 03/21/20 16:38
[2020-03-21] MEDS ORDERED: FAMOTIDINE 20 MG TAB PO SCH (21:00)
[2020-03-22] MEDS ORDERED: CLOPIDOGREL BISULFATE 75 MG TAB PO SCH (09:00)
== END 2020-03-21 16:38 | disposition home or self-care (01) | DRG 392 ==
LOC: ED 13:04 → SUATTDRO 17:04 → 2N 17:04

== ENCOUNTER 2023-06-08 09:40 | Inpatient (IN) ==
[2023-06-08] MEDS ORDERED: metroNIDAZOLE 500 MG/100 ML BAG IV STA (10:08)
[2023-06-08] MEDS ORDERED: SODIUM CHLORIDE 0.9% 500 ML IV STA (10:08)
[2023-06-08] MEDS ORDERED: PANTOprazole 40 MG in SYRINGE 0 ML IV ONE (10:10)
--- NOTE | 2023-06-08 10:14 | Emergency Department Note ---
Impression & Plan Bowel perforation, Acute upper abdominal pain, S/P endoscopy ED Provider Note NAME: SURENDRA CHEN AGE: 67 SEX: M : 1955 ARRIVES VIA: Ambulance INFORMANT: [Patient][nursing, ems] ED PROVIDER(S): [Homero Tavares MD] CHIEF COMPLAINT: Abdominal pain, perforation HISTORY OF PRESENT ILLNESS: The patient is a 67-year-old male who presents to the ED by ambulance from the [facility] endoscopy suite. The patient has been having abdominal pain and bloating for a long time. On CT imaging, he was found to have a dilated biliary duct. He was having an endoscopy to have this assessed. The endoscopy revealed a perforation to the duodenum that was not bleeding. It was clipped. The patient received IV Cipro, IV fentanyl and 700 cc of IV saline prior to arrival here. He was sent to our hospital for a surgical evaluation and admission. GI recommended antibiotics, an NG tube, proton pump inhibitors and close observation. PMHx/PSHx: See Below SOCIAL HISTORY: See Below. PHYSICAL EXAM: GENERAL: Patient is in no acute distress. HEENT: No acute trauma, normocephalic atraumatic, mucous membranes moist, no nasal congestion. NECK: No stridor, no adenopathy, no meningismus, trachea is midline. LUNGS: Clear to auscultation bilaterally, no wheeze, no rhonchi, breath sounds equal. HEART: Without murmurs gallops or rubs, regular rate and rhythm. ABDOMEN: Soft, there is some abdominal distention noted. He is mildly diffusely tender, no peritonitis EXTREMITIES: No cyanosis or edema, full range of motion of all the joints without pain or difficulty, no signs for acute trauma. NEUROLOGIC: Oriented x 3, no acute motor or sensory deficits, no focal weakness. SKIN: No rash, no jaundice, no diaphoresis. DIFFERENTIAL DIAGNOSIS: Bowel perforation, ulcer, gastritis, diverticulitis, peritonitis, pancreatitis, biliary obstruction, among others. EMERGENCY DEPARTMENT COURSE/PROCEDURES: Prior/Outside records reviewed: GI outpatient note, endoscopy report. ECG per my interpretation: Indication was abdominal pain. The ECG shows a sinus bradycardia with a rate of 49. There is some nonspecific ST change. There is an incomplete right bundle branch block. There is no ST elevation. QTc is 406. No PVCs Continuous Cardiac Monitoring per my interpretation: An order was placed for continuous cardiac monitoring. The monitor shows a rate of 62 with normal sinus rhythm. MEDICAL DECISION MAKING: There is no leukocytosis or concerning anemia. There is a normal platelet count. Alk phos slightly elevated but the remaining liver enzymes are unremarkable. No renal failure or significant electrolyte abnormality. Lactic acid level is not elevated making sepsis less likely. No evidence for pancreatitis. ECG shows a sinus bradycardia, no ischemia or dysrhythmia. The QTc was not significantly prolonged. Chest film per my review does show some free air underneath the right hemidiaphragm. Abdominal and pelvis CT shows some free air. No bowel obstruction. Findings consistent with clipping of a duodenal perforation. On exam, the patient was not toxic. He had some diffuse abdominal tenderness with some abdominal distention. Patient received IV Flagyl and IV fluconazole. He received a 500 cc saline bolus. I did speak with general surgery as well as GI. The patient is to be hospitalized and observed. No emergent surgery required. I spoke with the patient and case management, the on-call hospitalist was consulted. DISPOSITION: Patient's presentation and findings warrant a hospital stay. 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 TAKING PLAVIX. Hyperlipidemia Hypertension Hypothyroidism On anticoagulant therapy plavix daily Peptic ulcer disease H/O Prediabetes Tremor of both hands Surgical History Family history of reaction to anesthesia FATHER>ASPIRATED DURING COLONOSCOPY Fusion of spine CERVICAL AREA. UNSURE OF THE LEVELS. LIMITED ROM ALL DIRECTIONS-EASILY CAUSES NECK SPASMS. HAS BEEN INTUBATED SINCE WITHOUT ISSUES. H/O Achilles tendon repair x3--RIGHT FOOT H/O elbow surgery RIGHT ELBOW BONE SPUR REMOVAL H/O shoulder surgery LEFT SHOULDER BONE SPUR REMOVAL H/O: pituitary tumor BENIGN TUMOR REMOVED History of colonoscopy History of esophagogastroduodenoscopy (EGD) History of nasal septoplasty History of tonsillectomy Nausea and vomiting after administration of anesthetic agent S/P LASIK surgery of both eyes S/P UPPP (uvulopalatopharyngoplasty) Family History Uncle Family history of diabetes mellitus Other Hypertension No family history of adverse response to anesthesia Social History Smoking Status: Never smoker Second Hand Exposure: No; Do You Dip or Chew Tobacco: No; Hx Alcohol Use: No Preferred Language: Sinhala Communication Ability: Effective Visual Impairment: No Limitations Hearing Ability: Normal Neon Technician Required: No Beliefs That Will Affect Care: None marital status: Single Current Living Situation: Alone Current Living Situation Comment: DOG Feels Safe at Home: Yes Assistive Devices: Glasses Allergies Allergies Allergy/AdvReac Type Severity Reaction Status Date / Time No Known Allergies Allergy U Verified 05/16/23 13:06 Home Meds Home Medications Medication Instructions Recorded Confirmed amitriptyline 75 mg tablet 37.5 mg PO HS 08/16/18 06/08/23 morphine 30 mg tablet,extended 30 mg PO BID 08/16/18 06/08/23 release oxycodone-acetaminophen 10 mg-325 1 tab PO Q4 PRN Pain 08/16/18 06/08/23 mg tablet (Percocet) promethazine 25 mg tablet 25 mg PO Q6H PRN Nausea 08/16/18 06/08/23 atorvastatin 80 mg tablet 80 mg PO QAM 09/12/18 06/08/23 clopidogrel 75 mg tablet 75 mg PO QAM 09/12/18 06/08/23 pantoprazole 40 mg tablet,delayed 40 mg PO BID 09/12/18 06/08/23 release tizanidine 4 mg tablet 8 mg PO TID PRN Pain 09/12/18 06/08/23 gabapentin 400 mg capsule 400 mg PO TID 09/19/18 06/08/23 metformin 500 mg tablet 500 mg PO QAM 12/25/18 06/08/23 azelastine 137 mcg (0.1 %) nasal 2 spray intranasal BID PRN Nasal 03/31/19 06/08/23 spray aerosol Congestion duloxetine 60 mg capsule,delayed 60 mg PO QAM 04/06/19 06/08/23 release lisinopril 10 mg tablet 10 mg PO QAM 04/06/19 06/08/23 topiramate 25 mg tablet 75 mg PO HS 04/06/19 06/08/23 propranolol 10 mg tablet 10 mg PO QID 09/24/19 06/08/23 clobetasol 0.05 % topical ointment 1 applic topical BID PRN Rash 10/18/19 06/08/23 prednisone 5 mg tablet 5 mg PO QAM 10/18/19 06/08/23 amlodipine 5 mg tablet (Norvasc) 5 mg PO QAM 03/08/20 06/08/23 clindamycin phosphate 1 % topical 1 applic topical DAILY 09/22/20 06/08/23 solution bupropion HCl 150 mg 24 hr tablet, 150 mg PO QAM 09/15/21 06/08/23 extended release caffeine 200 mg tablet 200 mg PO BID PRN Headache 10/22/21 06/08/23 methylcellulose (with sugar) oral 1 tbsp PO DAILY 02/15/23 06/08/23 powder (Citrucel (sucrose) oral powder) polyethylene glycol 3350 17 17 g PO DAILY 02/15/23 06/08/23 gram/dose oral powder (Miralax) acetaminophen 325 mg tablet 650 mg PO BID 06/08/23 06/08/23 (Tylenol) cabergoline 0.5 mg tablet 0.5 mg PO TUFR 06/08/23 06/08/23 levothyroxine 125 mcg tablet 125 mcg PO DAILY@0630 06/08/23 06/08/23 sucralfate 1 gram tablet 1 g PO QID 06/08/23 06/08/23 Previous Rx's Medication Instructions Recorded dicyclomine 10 mg capsule See Rx Instructions .Route 10/19/21 .COMPLEX #270 caps Results & Data (ED) Vital Signs Vital Signs - 24 hr 06/08/23 09:55 06/08/23 10:07 06/08/23 10:17 Temperature 36.5 C Temperature Source Oral Pulse Rate 58 L 51 L Pulse Rate [Apical] 56 L Pulse Rate from SpO2 Sensor Respiratory Rate 16 16 Blood Pressure 137/73 Blood Pressure Mean 94 Pulse Oximetry 96 96 Oxygen Delivery Method Room Air Sepsis Recent Fever Within 48 Hours No Sepsis New/Unexplained Change in Mental Status No Sepsis Action Taken by Nursing No Action Required 06/08/23 09:48 06/08/23 10:00 06/08/23 10:00 Temperature Temperature Source Pulse Rate 51 L 66 Pulse Rate [Apical] Pulse Rate from SpO2 Sensor 52 L 59 L Respiratory Rate 15 18 Blood Pressure 122/80 Blood Pressure Mean 96 Pulse Oximetry 99 97 Oxygen Delivery Method Sepsis Recent Fever Within 48 Hours Sepsis New/Unexplained Change in Mental Status Sepsis Action Taken by Nursing 06/08/23 10:30 Temperature Temperature Source Pulse Rate 50 L Pulse Rate [Apical] Pulse Rate from SpO2 Sensor 54 L Respiratory Rate 16 Blood Pressure 123/67 Blood Pressure Mean 85 Pulse Oximetry 93 Oxygen Delivery Method Sepsis Recent Fever Within 48 Hours Sepsis New/Unexplained Change in Mental Status Sepsis Action Taken by Penitent[facility] Medications Current Medication List: was personally reviewed by me Laboratory Data Attestation: I reviewed the patient's lab results. 06/08/23 14:14 06/08/23 14:14 Lab Results 06/08/23 06/08/23 Range/Units 10:24 10:24 WBC 7.15 (4.8-10.8) K/ul RBC 4.71 (4.70-6.10) M/uL Hgb 14.1 (14.0-18.0) g/dl Hct 42.1 (42.0-52.0) % MCV 89.4 (80.0-100.0) fL MCH 29.9 (25.0-34.0) pg MCHC 33.5 (32.0-36.0) g/dL RDW Std Deviation 38.9 (36.4-46.3) fL RDW Coeff of Neida 11.9 (11.5-14.5) % Plt Count 207 (130-400) K/uL MPV 8.5 L (9.4-12.4) fL Immature Gran % (Auto) 0.3 % Neut % (Auto) 71.3 % Lymph % (Auto) 21.4 % [place] % (Auto) 4.9 % Eos % (Auto) 1.5 % Baso % (Auto) 0.6 % Neut # (Auto) 5.10 (1.40-6.50) K/uL Lymph # (Auto) 1.53 (1.2-3.4) K/uL [place] # (Auto) 0.35 (0.11-0.59) K/uL Eos # (Auto) 0.11 (0-0.50) K/uL Baso # (Auto) 0.04 (0-0.2) K/uL Immature Gran # (Auto) 0.02 (0.01-0.20) K/uL Sodium 143 (136-145) mmol/L Potassium 4.4 (3.5-5.1) mmol/L Chloride 112 H (98-107) mmol/L Carbon Dioxide 27 (21-32) mmol/L Anion Gap 4 (3-11) BUN 16 (6-23) mg/dl Creatinine 0.85 (0.6-1.4) mg/dl Est Cr Clr Drug Dosing Not Reportable Est GFR ( Amer) 104.5 ml/min Est GFR (Non-Af Amer) 90.2 ml/min BUN/Creatinine Ratio 18.8 (10-20) Glucose 94 (70-99(Fasting)) mg/dl Calcium 8.1 L (8.6-10.3) mg/dl Total Bilirubin 0.4 (0.2-1.0) mg/dl AST 14 (13-39) U/L ALT 7 (7-52) U/L Alkaline Phosphatase 119 H (34-104) U/L Total Protein 5.8 L (6.0-8.3) gm/dl Albumin 3.8 (3.4-5.0) gm/dl Globulin 2.0 L (2.5-4.0) gm/dl Albumin/Globulin Ratio 1.9 (0.9-2) Lipase 31 (11-82) U/L Administered Medications Pantoprazole Sodium 40 mg/ (Syringe) 10 mls @ 5 mls/min IV BID KATIE Stop: 07/08/23 11:14 Last Admin: 06/08/23 13:00 Dose: 5 mls/min Documented By: NAI Discontinued Medications Hydrocortisone Sodium Succinate (Hydrocortisone Sod Succinate 100 Mg/2 Ml Vial) 100 mg IV NOW STA Stop: 06/08/23 11:29 Last Admin: 06/08/23 13:00 Dose: 100 mg Documented By: NAI Metronidazole (Flagyl) 500 mg in 100 mls @ 100 mls/hr IV NOW STA; Protocol Stop: 06/08/23 11:07 Last Admin: 06/08/23 14:03 Dose: 100 mls/hr Documented By: NAI Sodium Chloride (Nss) 500 mls @ 999 mls/hr IV .Q31M STA Stop: 06/08/23 10:38 Last Admin: 06/08/23 14:06 Dose: 999 mls/hr Documented By: NAI Fluconazole (Diflucan) 200 mg in 100 mls @ 100 mls/hr IV TODAY@1030,1130 KATIE Stop: 06/08/23 12:29 Last Admin: 06/08/23 15:05 Dose: 100 mls/hr Documented By: NAI Ioversol (Optiray 320 100ml) 94 ml IV ONCE ONE Stop: 06/08/23 13:18 Last Admin: 06/08/23 13:18 Dose: 94 ml Documented By: MAGGY Morphine Sulfate (Morphine Sulfate 2 Mg/Ml Carp) 2 mg IV NOW STA Stop: 06/08/23 13:01 Last Admin: 06/08/23 14:07 Dose: Not Given Documented By: NAI Morphine Sulfate (Morphine Sulfate 2 Mg/Ml Carp) 4 mg IV NOW STA Stop: 06/08/23 13:01 Last Admin: 06/08/23 13:10 Dose: 4 mg Documented By: NAI Morphine Sulfate (Morphine Sulfate 4 Mg/Ml 1 Ml Carp\\Vial) 4 mg IV NOW STA Stop: 06/08/23 13:40 Last Admin: 06/08/23 14:04 Dose: 4 mg Documented By: NAI Imaging Data Radiologist's Impression: Abdomen/Pelvis CT 06/08/23 10:[address] WITH IV CONTRAST CT DOSE: 853.89 mGy.cm HISTORY: Acute generalized abdominal pain with recent endoscopy and reported duodenal perforation. duod perf TECHNIQUE: Multiaxial CT images of the abdomen and pelvis were performed following the IV administration of 94 cc of Optiray, A dose lowering technique was utilized adhering to the principles of ALARA. COMPARISON STUDY: CT 03/16/2020 FINDINGS: Mild bibasilar atelectasis. Trace right pleural effusion. Moderate pneumoperitoneum. Unremarkable spleen, and adrenal glands. Probable hepatic steatosis. Patent portal vein. Distended gallbladder. No cholelithiasis identified. Common bile duct measures 8 mm. And moderate pancreatic atrophy. Unremarkable left kidney. There are 2 nonobstructing calculi right kidney measuring up to 4 mm. There are a few subcentimeter right renal cysts. No ureteral calculi or hydronephrosis. Prostamegaly with heterogeneous enhancement. Urinary bladder wall thickening with partial distention. Atherosclerosis of the aorta without aneurysm. No lymphadenopathy. Enteric tube is present terminating within the mid gastric body. There is wall thickening noted involving the second portion of the duodenum with a surgical clip/clamp, adjacent free air and small amount of free fluid. Probable small associated intramural hematoma. Colonic diverticulosis. Moderate fecal retention in the ascending and transverse colon. No CT evidence of acute appendicitis. Trace ascites. Unremarkable soft tissues. No acute fracture. IMPRESSION: 1. Wall thickening involving the second portion of the duodenum with probable small intramural hematoma is noted in conjunction with a metallic occlusion/clamp device. Findings are compatible with acute duodenal perforation with repair. 2. Moderate pneumoperitoneum with small amount of abdominal pelvic ascites. 3. Distal tip of the enteric tube terminates within the gastric body. 4. Right nephrolithiasis. 5. Mild gallbladder distention. 6. Moderate fecal retention of the right hemicolon. ACT 112: Negative or not required by law. The above report was generated using voice recognition software. It may contain grammatical, syntax or spelling errors. Electronically signed by: Delonte Diaz M.D. 06/08/2023 2:24 PM Patient:SURENDRA CHEN Admit Date:06/08/23 MR#:[id number] Address1:[address] [place] [address] Acct ID:[id number] Address2: Date:1955 [facility] Zip:[place] [address] Age:67 Location:ED Sex:M Room/Bed: Att Phy: Diagnosis:ABD PAIN Mary Phy:Johnathan Rain III, MD Service Date:06/08/23 [facility] Phy: Interpreting Phy:Johny Kilgore MDAit Phy: Ordering Phy:Homero Tavares M.D. cc: ~ XR chest 1V portable CLINICAL HISTORY: NG placement TECHNIQUE: Single frontal radiograph of the chest was obtained. Comparison: Comparison is made to chest radiograph 03/19/2020 FINDINGS: Enteric tube tip is below the diaphragm. The cardiomediastinal silhouette is normal. Linear density in the right lung base is noted. No evidence of pleural effusion or pneumothorax. IMPRESSION: Satisfactory position of enteric tube. Linear density in the right lung base is new from prior exam. Attention on CT abdomen pelvis which has already been ordered is recommended to exclude pneumoperitoneum. Discharge Plan Visit Data Chief Complaint: Abdominal Pain ED Provider: Homero Tavares Discharge Problem: Bowel perforation, Acute upper abdominal pain, S/P endoscopy Patient Disposition: Admitted As Inpatient Condition: Fair
--- NOTE | 2023-06-08 10:25 | Surgery Consultation ---
Date of Consultation June 08, 2023 Assessment & Plan (1) Abdominal pain: (2) Duodenal perforation: Iatrogenic duodenal perforation causing abdominal pain. Noted at the time of injury and treated endoscopically. Patient is HD stable and afebrile on ED presentation. No acute surgical intervention at this time. Plan as follows. Admit to medicine Strict NPO...no oral intake, including no ice chips including no medications including no sips. Maintenance IVF with D5, IV antibiotics. Received Cipro. Add Flagyl and Diflucan. NGT to be placed in the ED. Low intermittent suction. PPI BID IV for now Labs today and in the am. Replete electrolytes as needed. CT of the abdomen and pelvis. Pain control. Ambulate. SCDs to b/l LE while in bed. No chemical DVT ppx at this time. Surgery will continue to follow. History of Present Illness Reason for Consultation: Duodenal perforation Requesting Physician: Dr. Plascencia History of Present Illness Mr. Dillard is a 67 y/o male who underwent an elective outpatient EUS this am with Dr. Plascencia for further evaluation of unusually dilated bile duct. During the procedure Dr. Plascencia was able to notice a duodenal perforation and was able to immediately treat with a endoscopic clipping. The patient has been transferred here for further work up and management. Upon seeing the patient in the ED, he is denying nausea at this time, says he has not had any fevers or chills and does say that while he is still having some abdominal pain, it does feel slightly improved. Allergies Allergy/AdvReac Type Severity Reaction Status Date / Time No Known Allergies Allergy U Verified 05/16/23 13:06 Home Medications Medication Instructions Recorded Confirmed Type amitriptyline 75 mg tablet 75 mg PO HS 08/16/18 05/16/23 History morphine 30 mg tablet,extended 30 mg PO BID 08/16/18 05/16/23 History release oxycodone-acetaminophen 10 mg-325 1 tab PO Q4 PRN Pain 08/16/18 05/16/23 History mg tablet (Percocet) promethazine 25 mg tablet 25 mg PO Q6H PRN Nausea 08/16/18 05/16/23 History atorvastatin 80 mg tablet 80 mg PO QAM 09/12/18 05/16/23 History clopidogrel 75 mg tablet 75 mg PO QAM 09/12/18 05/16/23 History pantoprazole 40 mg tablet,delayed 40 mg PO BID 09/12/18 05/16/23 History release tizanidine 4 mg tablet 8 mg PO TID PRN Pain 09/12/18 05/16/23 History gabapentin 400 mg capsule 400 mg PO TID 09/19/18 05/16/23 History metformin 500 mg tablet 500 mg PO QAM 12/25/18 05/16/23 History azelastine 137 mcg (0.1 %) nasal 2 spray intranasal BID PRN Nasal 03/31/19 05/16/23 History spray aerosol Congestion mometasone 50 mcg/actuation nasal 2 spray intranasal DAILY 03/31/19 05/16/23 History spray duloxetine 60 mg capsule,delayed 60 mg PO QAM 04/06/19 05/16/23 History release lisinopril 10 mg tablet 10 mg PO QAM 04/06/19 05/16/23 History topiramate 25 mg tablet 25 mg PO HS 04/06/19 05/16/23 History levothyroxine 100 mcg tablet 100 mcg PO QAM 04/08/19 05/16/23 History propranolol 10 mg tablet 10 mg PO TID PRN Tremor(S) 09/24/19 05/16/23 History clobetasol 0.05 % topical ointment 1 applic topical BID PRN Rash 10/18/19 05/16/23 History prednisone 5 mg tablet 5 mg PO QAM 10/18/19 05/16/23 History amlodipine 5 mg tablet (Norvasc) 2.5 mg PO QAM 03/08/20 05/16/23 History clindamycin phosphate 1 % topical 1 applic topical DAILY 09/22/20 05/16/23 History solution sucralfate 1 gram tablet See Rx Instructions .Route 06/16/21 05/16/23 Rx .COMPLEX 30 days #120 tabs bupropion HCl 150 mg 24 hr tablet, 150 mg PO QAM 09/15/21 05/16/23 History extended release dicyclomine 10 mg capsule See Rx Instructions .Route 10/19/21 05/16/23 Rx .COMPLEX #270 caps caffeine 200 mg tablet 200 mg PO BID PRN Headache 10/22/21 05/16/23 History naloxegol 25 mg tablet (Movantik) 25 mg PO QAM #30 tabs 05/06/22 05/16/23 Rx sodium sul 1.479 gram-potas ch See Rx Instructions PO .COMPLEX 07/22/22 05/16/23 Rx 0.188 gram-magnes sul 0.225 gram #24 tabs tablet (Sutab) methylcellulose (with sugar) oral 1 tbsp PO DAILY 02/15/23 05/16/23 History powder (Citrucel (sucrose) oral powder) polyethylene glycol 3350 17 17 g PO DAILY 02/15/23 05/16/23 History gram/dose oral powder (Miralax) Patient History Medical History Anxiety BPH (benign prostatic hyperplasia) Chronic neck pain 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 TAKING PLAVIX. Hyperlipidemia Hypertension Hypothyroidism On anticoagulant therapy plavix daily Peptic ulcer disease H/O Prediabetes Tremor of both hands Surgical History Family history of reaction to anesthesia FATHER>ASPIRATED DURING COLONOSCOPY Fusion of spine CERVICAL AREA. UNSURE OF THE LEVELS. LIMITED ROM ALL DIRECTIONS-EASILY CAUSES NECK SPASMS. HAS BEEN INTUBATED SINCE WITHOUT ISSUES. H/O Achilles tendon repair x3--RIGHT FOOT H/O elbow surgery RIGHT ELBOW BONE SPUR REMOVAL H/O shoulder surgery LEFT SHOULDER BONE SPUR REMOVAL H/O: pituitary tumor BENIGN TUMOR REMOVED History of colonoscopy History of esophagogastroduodenoscopy (EGD) History of nasal septoplasty History of tonsillectomy Nausea and vomiting after administration of anesthetic agent S/P LASIK surgery of both eyes S/P UPPP (uvulopalatopharyngoplasty) Family History Uncle Family history of diabetes mellitus Other Hypertension No family history of adverse response to anesthesia Social History Smoking Status: Never smoker Second Hand Exposure: No; Do You Dip or Chew Tobacco: No; Hx Alcohol Use: No Preferred Language: Peruvian Communication Ability: Effective Visual Impairment: No Limitations Hearing Ability: Normal Food And Beverage Associate Required: No Beliefs That Will Affect Care: None marital status: Single Current Living Situation: Alone Current Living Situation Comment: DOG Feels Safe at Home: Yes Assistive Devices: Glasses Review of Systems Review of Systems: All systems reviewed & are unremarkable except as noted in Subjective Physical Exam Constitutional: healthy appearing; not ill appearing, not in distress and not diaphoretic Respiratory: normal respiratory effort; no respiratory distress, no labored breathing and does not use accessory muscles Cardiovascular: Rate/Rhythm: regular rate No LE edema Gastrointestinal (Abdomen): Inspection/Auscultation: + abdomen distended Percussion/Palpation: + abdomen tender (Mild TTP diffusely) and abdomen soft; no guarding and abdomen not rigid No evidence for peritonitis Neurologic: moves all extremities and awake; no focal motor deficits and not confused Results & Data Vital Signs (Past 12 Hours) Vital Signs Temp Pulse Resp BP Pulse Ox 06/08/23 09:55 36.5 C 58 L 16 137/73 96 PG Care Time/CCT Total # of Minutes Spent Total Time Spent with Patient: Total time spent is greater than 50% in coordination of care (as documented) at patient's floor/unit and/or counseling patient: [place] [address] INT INP/OBS CARE 1/40MIN Patient Type New History Problem Focused Exam Expanded Problem Focused Medical Decision Making Moderate Complexity Diagnoses Abdominal pain R10.9 Duodenal perforation K63.1
[2023-06-08 10:39] LABS: Basophils # (auto) 0.04 K/uL (0-0.2); Basophils % (auto) 0.6 %; Eosinophils # (auto) 0.11 K/uL (0-0.50); Eosinophils % (auto) 1.5 %; Hematocrit (blood only) 42.1 % (42.0-52.0); Hemoglobin 14.1 g/dl (14.0-18.0); Immature Granulocytes # (auto) 0.02 K/uL (0.01-0.20); Immature Granulocytes % (auto) 0.3 %; Lymphocytes # (auto) 1.53 K/uL (1.2-3.4); Lymphocytes % (auto) 21.4 %; Mean Corpuscular Hemoglobin 29.9 pg (25.0-34.0); Mean Corpuscular Hgb Conc 33.5 g/dL (32.0-36.0); Mean Corpuscular Volume 89.4 fL (80.0-100.0); Mean Platelet Volume 8.5 fL (9.4-12.4); Monocytes # (auto) 0.35 K/uL (0.11-0.59); Monocytes % (auto) 4.9 %; Neutrophils % (auto) 71.3 %; Platelet Count 207 K/uL (130-400); RDW Coefficient of Variation 11.9 % (11.5-14.5); RDW Standard Deviation 38.9 fL (36.4-46.3); Red Blood Count 4.71 M/uL (4.70-6.10); White Blood Count 7.15 K/ul (4.8-10.8)
--- NOTE | 2023-06-08 10:59 | History & Physical Report ---
Date of Service June 08, 2023 Assessment & Plan (1) Abdominal pain: (2) Duodenal perforation: (3) Status post transsphenoidal pituitary resection: (4) Panhypopituitarism: (5) History of TIA (transient ischemic attack): (6) Chronic narcotic dependence: Plan This is a 67 yr old M who has significant PMH of HTN, HLD, hx of TIA, Pituitary Macroadenoma s/p resection on chronic steroid therapy and resultant central hypothyroidism, hypogonadotropic hypogonadism, PreDM, raynauds, GERD, BPH, Diverticulosis, Chronic Pain syndrome, Post Laminectomy syndrome, Seasonal allergies, essential tremor, anxiety who presents at referral of GI 2/2 perforated Duodenum. Abdominal pain Duodenal perforation status post endoscopic clipping POD #0 pt underwent EUS in outpt setting 2/2 dilated bile duct and discovered was a perf duodenum which was treated immediately with endovascular clipping and no evidence of bleeding Admit to PCU Strict n.p.o. NG tube placement in ED to low remittent suction IV antibiotics with Cipro, Flagyl and fluconazole General surgery consulted -appreciate their recommendations We will consult gastroenterology IV PPI twice daily IVF 1/2 NS plus D5 at 100/hour will hold all nonessential meds and convert essential to IV ---CT abd pelvis:1. Wall thickening involving the second portion of the duodenum with probable small intramural hematoma is noted in conjunction with a metallic occlusion/clamp device. Findings are compatible with acute duodenal perforation with repair.. Moderate pneumoperitoneum with small amount of abdominal pelvic ascites.. Distal tip of the enteric tube terminates within the gastric body.. Right nephrolithiasis.. Mild gallbladder distention.. Moderate fecal retention of the right hemicolon. conservative management for now, no peritonitic signs, VSS, expected findings in setting of EGD findings with perf duodenum s/p clipping History of pituitary macroadenoma status postresection -- Resultant panhypopituitarism, central hypothyroidism hypogonadotropic hypogonadism We will convert essential meds to IV including IV levothyroxine We will give stress dose steroid 100 mg hydrocortisone x1 now and then 50 mg every 6 will need tapered based on NPO status also on oral cabergoline twice weekly Pt punch finisher is Dr. Debbi Johns out of [place] Hx of TIA on plavix and statin HTN on amlodipine, lisinopril will monitor bp while on hold will request nursing reach out if SBP > 160 consistently Chronic pain syndrome Post Laminectomy syndrome pt is on chronic Morphine Sulfate ER 30mg bid, percocet 10-325 q4h prn, gabapentin, cymbalta, elavil will convert Morphine to IV - discussed with pharmacy 5mg q6h with parameters Pre DM on metformin last a1c 5.9 in December, obtain a1c will monitor accuchecks for now while NPO, will hold on coverage unless consistently elevated Essential Tremor on propranolol QID will convert to IV lopressor 2.5mg q6h, discussed with pharmacy DVT ppx: SCDs for now due to findings of hematoma and bloody drainage from NG, re eval daily need for chemical ppx FULL CODE PCP: SUPRIYA Dispo: admit to PCU, strict NPO Pt was seen and examined in collaboration with Dr. Guerrero, please see addendum A total of 90 was spent coordinating, documenting, and providing care for this patient excluding time spent in the performance of separately billed services. This included personally viewing all current laboratories and imaging studies, medication reconciliation, outpatient chart review, and discussion with specialists. History of Present Illness Chief Complaint: Referred by GI 2/2 Perforated duodenum Primary Care Provider: Johnathan Rain MD This is a 67 yr old M who has significant PMH of HTN, HLD, hx of TIA, Pituitary Macroadenoma s/p resection on chronic steroid therapy and resultant central hypothyroidism, hypogonadotropic hypogonadism, PreDM, raynauds, GERD, BPH, Diverticulosis, Chronic Pain syndrome, Post Laminectomy syndrome, Seasonal allergies, essential tremor, anxiety who presents at referral of GI 2/2 perforated Duodenum. He has been having stomach pain approx 1 year ago. He was dx with diverticulosis and placed on Miralax and Metamucil which solved the problem for a while; however sx came back. He had a CT scan as OP that showed bile duct dilation which prompted endoscopy today. Patient underwent EUS by Dr. Plascencia today for further evaluation of unusually dilated bile duct. During the procedure Dr. Plascencia noted a duodenal perforation and was able to immediately treat with endoscopic clipping. He received prophylactic ciprofloxacin, 1 L of IV fluid and fentanyl prior to arrival. He was already seen and evaluated by general surgery in ED and is recommended patient remain strict n.p.o., NG tube placement, IV PPI twice daily and IV antibiotics. His abdominal pain is improved from prior to arrival. He does occasionally have nausea and vomiting. He denies any hematemesis or melena. He denies f/c/s, dizziness, lightheaded, chest pain, sob, URI sx, diarrhea, dysuria, increased urg, freq with urination or hematuria. He takes chronic narcotics and does not experience constipation with routine miralax and Metamucil. He last BM was yesterday and normal from him. This morning he took his propranolol, caffeine, PPI, levothyroxine, morphine and Percocet. Pts brother is at bedside and discussed. Allergies Allergy/AdvReac Type Severity Reaction Status Date / Time No Known Allergies Allergy U Verified 05/16/23 13:06 Home Medications Medication Instructions Recorded Confirmed Type amitriptyline 75 mg tablet 37.5 mg PO HS 08/16/18 06/08/23 History morphine 30 mg tablet,extended 30 mg PO BID 08/16/18 06/08/23 History release oxycodone-acetaminophen 10 mg-325 1 tab PO Q4 PRN Pain 08/16/18 06/08/23 History mg tablet (Percocet) promethazine 25 mg tablet 25 mg PO Q6H PRN Nausea 08/16/18 06/08/23 History atorvastatin 80 mg tablet 80 mg PO QAM 09/12/18 06/08/23 History clopidogrel 75 mg tablet 75 mg PO QAM 09/12/18 06/08/23 History pantoprazole 40 mg tablet,delayed 40 mg PO BID 09/12/18 06/08/23 History release tizanidine 4 mg tablet 8 mg PO TID PRN Pain 09/12/18 06/08/23 History gabapentin 400 mg capsule 400 mg PO TID 09/19/18 06/08/23 History metformin 500 mg tablet 500 mg PO QAM 12/25/18 06/08/23 History azelastine 137 mcg (0.1 %) nasal 2 spray intranasal BID PRN Nasal 03/31/19 06/08/23 History spray aerosol Congestion duloxetine 60 mg capsule,delayed 60 mg PO QAM 04/06/19 06/08/23 History release lisinopril 10 mg tablet 10 mg PO QAM 04/06/19 06/08/23 History topiramate 25 mg tablet 75 mg PO HS 04/06/19 06/08/23 History propranolol 10 mg tablet 10 mg PO QID 09/24/19 06/08/23 History clobetasol 0.05 % topical ointment 1 applic topical BID PRN Rash 10/18/1906/08 History prednisone 5 mg tablet 5 mg PO QAM 10/18/19 06/08/23 History amlodipine 5 mg tablet (Norvasc) 5 mg PO QAM 03/08/20 06/08/23 History clindamycin phosphate 1 % topical 1 applic topical DAILY 09/22/20 06/08/23 History solution bupropion HCl 150 mg 24 hr tablet, 150 mg PO QAM 09/15/21 06/08/23 History extended release dicyclomine 10 mg capsule See Rx Instructions .Route 10/19/21 06/08/23 Rx .COMPLEX #270 caps caffeine 200 mg tablet 200 mg PO BID PRN Headache 10/22/21 06/08/23 History methylcellulose (with sugar) oral 1 tbsp PO DAILY 02/15/23 06/08/23 History powder (Citrucel (sucrose) oral powder) polyethylene glycol 3350 17 17 g PO DAILY 02/15/23 06/08/23 History gram/dose oral powder (Miralax) acetaminophen 325 mg tablet 650 mg PO BID 06/08/23 06/08/23 History (Tylenol) cabergoline 0.5 mg tablet 0.5 mg PO TUFR 06/08/23 06/08/23 History levothyroxine 125 mcg tablet 125 mcg PO DAILY@0630 06/08/23 06/08/23 History sucralfate 1 gram tablet 1 g PO QID 06/08/23 06/08/23 History Past Med/Surg History Medical History Anxiety BPH (benign prostatic hyperplasia) Chronic neck pain 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 TAKING PLAVIX. Hyperlipidemia Hypertension Hypothyroidism On anticoagulant therapy plavix daily Peptic ulcer disease H/O Prediabetes Tremor of both hands Surgical History Family history of reaction to anesthesia FATHER>ASPIRATED DURING COLONOSCOPY Fusion of spine CERVICAL AREA. UNSURE OF THE LEVELS. LIMITED ROM ALL DIRECTIONS-EASILY CAUSES NECK SPASMS. HAS BEEN INTUBATED SINCE WITHOUT ISSUES. H/O Achilles tendon repair x3--RIGHT FOOT H/O elbow surgery RIGHT ELBOW BONE SPUR REMOVAL H/O shoulder surgery LEFT SHOULDER BONE SPUR REMOVAL H/O: pituitary tumor BENIGN TUMOR REMOVED History of colonoscopy History of esophagogastroduodenoscopy (EGD) History of nasal septoplasty History of tonsillectomy Nausea and vomiting after administration of anesthetic agent S/P LASIK surgery of both eyes S/P UPPP (uvulopalatopharyngoplasty) Family History Uncle Family history of diabetes mellitus Other Hypertension No family history of adverse response to anesthesia Social History Smoking Status: Never smoker Second Hand Exposure: No; Do You Dip or Chew Tobacco: No; Hx Alcohol Use: No Hx Substance Use: No Preferred Language: Tamazight Communication Ability: Effective Visual Impairment: No Limitations Hearing Ability: Normal Certified Recreational Therapist Required: No Beliefs That Will Affect Care: None marital status: Single Current Living Situation: Alone Current Living Situation Comment: At home alone Other Information That Helps Us Care for You: No Feels Safe at Home: Yes Safety Concerns: Feels Safe At This Time Assistive Devices: Glasses Review of Systems Review of Systems: All systems reviewed & are unremarkable except as noted in HPI & below Physical Exam Physical Exam: please refer to Dr. Guerrero addendum for physical exam findings. Results & Data Results & Data Vital Signs (Past 12 Hours) Vital Signs Temp Pulse Pulse Resp BP Pulse Ox O2 Del Method 06/08/23 10:17 51 L 06/08/23 10:07 56 L 16 96 Room Air 06/08/23 09:55 36.5 C 58 L 16 137/[address] Scan pending. ECG Rate (beats per minute): 49 Rhythm: sinus bradycardia Findings: + RBBB COVID-19 Results Results COVID-19 Adm Lab Results: RBC 5.11 M/uL (4.70-6.10) 06/08/23 WBC 12.23 K/ul (4.8-10.8) H 06/08/23 Hgb 15.4 g/dl (14.0-18.0) 06/08/23 Hct 45.2 % (42.0-52.0) 06/08/23 Plt Count 221 K/uL (130-400) 06/08/23 Neutrophils (%) (Auto) 85.0 % 06/08/23 Lymphocytes (%) (Auto) 10.0 % 06/08/23 Monocytes # (Auto) 0.43 K/uL (0.11-0.59) 06/08/23 Eosinophils # (Auto) 0.12 K/uL (0.00-0.50) 06/08/23 Immature Granulocyte % (Auto) 0.3 % 06/08/23 Neutrophils # (Auto) 10.40 K/uL (1.40-6.50) H 06/08/23 Lymphocytes # (Auto) 1.22 K/uL (1.20-3.40) 06/08/23 Monocytes # (Auto) 0.43 K/uL (0.11-0.59) 06/08/23 Eosinophils # (Auto) 0.12 K/uL (0.00-0.50) 06/08/23 Basophils # (Auto) 0.02 K/uL (0.00-0.20) 06/08/23 Immature Granulocyte # (Auto) 0.04 K/uL (0.01-0.20) 3 Na 140 mmol/L (136-145) 06/08/23 K 3.7 mmol/L (3.5-5.1) 06/08/23 Cl 109 mmol/L (98-107) H 06/08/23 CO2 24 mmol/L (21-32) 06/08/23 Anion Gap 7 (3-11) 06/08/23 BUN 16 mg/dl (6-23) 06/08/23 Creatinine 0.83 mg/dl (0.6-1.4) 06/08/23 BUN/Creatinine Ratio 19.3 (10-20) 06/08/23 Glucose Level 94 mg/dl (70-99(Fasting)) 06/08/23 Ca 8.2 mg/dl (8.6-10.3) L 06/08/23 Total Bilirubin 0.7 mg/dl (0.2-1.0) 06/08/23 AST/SGOT 16 U/L (13-39) 06/08/23 ALT/SGPT 8 U/L (7-52) 06/08/23 Alkaline Phosphatase 125 U/L (34-104) H 06/08/23 Total Protein 6.2 gm/dl (6.0-8.3) 06/08/23 Albumin 4.0 gm/dl (3.4-5.0) 06/08/23 Globulin 2.2 gm/dl (2.5-4.0) L 06/08/23 Albumin/Globulin Ratio 1.8 (0.9-2) 06/08/23 Chest X-Ray 06/08/23 Code Status & VTE Plan Code Status FULL CODE VTE Prophylaxis Plan VTE Prophylaxis will be ordered: Yes Supervising Physician Co-Signing Physician Notes I have seen and discussed the case with the collaborating PALMER. I agree with the above H&P. I have reviewed and confirmed the patients medical history, the findings on physical examination, and the patients diagnosis and treatment plan with Susan CHAKRABORTY and agree with the information documented.In short, Mr Roman Dillard is a 67 year old gentleman with past history notable for pituitary macroadenoma s/p resection c/b panhypopituitarism, chronic pain neck and shoulders (chronic narcotic use), HTN, HLD, TIA, essential tremor who presented to the ED after OP EGD revealed duodenal peforation. EGD was performed due to progressive bloating and abdominal pain ongoing for 6 months--scope revealed dilation of gallbladder and common bile duct, as well as a non-bleeding perforation at which point a clip was placed without complication. It was determined patient be transferred for monitoring, broad spectrum abx coverage, and surgical evaluation. Patient states that he feels well post-procedure and denies any acute pain, nausea, vomiting--stating his discomfort has been well controlled. Reviewing his medications, he states he took "a few of his thyroid, pain and blood pressure medications" and provided a note with the meds; however, he did not take his steroid this morning. 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 Further discussion regarding abdominal symptoms, patient states he has experienced issues thought to be related to diverticulosis, at which point he was able to manage with lifestyle changes. The pain returned end of last year and has progressed. He denies any hematemesis, hematochezia, melena, fevers or chills. Last bowel movement was normal and on 06/07. Patient denies NSAID use. Patient is on chronic pain regimen involving opioids, which he manages the constipation with a bowel regimen at home. Vitals were within normal limits, notable for an asymptomatic bradycardia (patient does take propranolol QID and took this am). Labs did not reveal signs concerning for adrenal crisis or overt infection. There was an isolated ALP potentially correlating with the distened gallbladder/bile duct. ECG revealed sinus rabia, QRS ~98, [id number]. CXR without free gas apparent. Physical exam revealed a pleasant male, laying comfortably on the bed. His abdomen was soft, nontender, present bowel sounds; cardiac exam without m/r/g, normal rhythm, rate ~50-low 60s on bedside tele. No focal deficits were appreciated. Plan for the duodenal perforation includes IV PPI BID, CT w/ con abdomen, NGT placement, NPO, and Cipro/flagyl/fluc for intraabdominal empiric coverage. Surgery was consulted, with no plans for acute surgical intervention at this time. GI on consult for close follow up as well. Regarding other chronic comorbidities: plan for 100IV solucortef for stress dose to prevent adrenal crisis followed by 50mg q6. Taper contingent on clinical course. Patient's Endocrine provider messaged for update on patient: Dr. Debbi Johns. Po levo to IV. Propranolol for tremor discuss with pharmacy, with recommendations of IV lopressor 5 q 6. Patient's pain regimen adjusted to equal 60 MME IV. Further discussion with GI/Surgery to follow. Per discussion with Endocrine provider, Dr Debbi Johns, upon completion of rapid IV taper, transition to oral hydrocortisone 15mg am/ 5mg pm. Prednisone is to be discontinued as it is best to be avoided given perforation.
[2023-06-08 11:02] LABS: Alanine Aminotransferase 7 U/L (7-52); Albumin Globulin Ratio 1.9 (0.9-2); Albumin Level 3.8 gm/dl (3.4-5.0); Alkaline Phosphatase 119 U/L (34-104); Anion Gap 4 (3-11); Aspartate Aminotransferase 14 U/L (13-39); BUN Creatinine Ratio 18.8 (10-20); Bilirubin,Total 0.4 mg/dl (0.2-1.0); Blood Urea Nitrogen 16 mg/dl (6-23); Calcium 8.1 mg/dl (8.6-10.3); Carbon Dioxide 27 mmol/L (21-32); Chloride 112 mmol/L (98-107); Est GFR (African American) 104.5 ml/min; Est GFR (Non-African American) 90.2 ml/min; Glucose 94 mg/dl (70-99(Fasting)); Lipase 31 U/L (11-82); Potassium 4.4 mmol/L (3.5-5.1); Sodium 143 mmol/L (136-145); Total Protein 5.8 gm/dl (6.0-8.3)
[2023-06-08] MEDS ORDERED: PANTOprazole 40 MG in SYRINGE 0 ML IV SCH (11:15)
[2023-06-08] MEDS ORDERED: HYDROCORTISONE SOD SUCCINATE 100 MG/2 ML VIAL IV STA (11:28)
--- NOTE | 2023-06-08 11:40 | Gastrointestinal Consultation ---
Date of Consultation June 08, 2023 Assessment & Plan (1) Duodenal perforation: Pt is a 67 yo male seen for non-bleeding duodenal perforation managed with Padlock clip placement during EGD/EUS procedure done for abd pain and eval of gallbladder distension & CBD dilation seen on CT abd/pelvis. He appears co mfortable but reports some RUQ tenderness, no n/v, labs wo leukocytosis, no anemia, normal chem panel. - Antibiotics for enteric coverage - Keep NPO - NGT to low intermittent suction to decompress stomach - PPI IV BID - CT abd/pelvis - Surgery aware and consulted - IVF support and symptomatic management - Will follow along Supervising Physician Co-Signing Physician Notes I have personally seen and examined the patient with RALPH Petit on 06/08/23. Her note reflects my exam and findings. I agree with her impression and plan. Await CT results. and follow clinically along with surgery team. Discussed with brother at bedside as well. Chirag Small M.D. History of Present Illness Reason for Consultation: Duodenal perforation Requesting Physician: Dr. Homero Tavares Attending Physician: Dr. Chirag Small History of Present Illness Pt is a 67 yo male w PMHx of GERD, HTN, HLD, narcotic dependence, PUD, IBS who was referred by Dr. Juwan Plascencia after EGD/EUS procedure today for duodenal perforation. Pt was undergoing these endoscopic evaluations for symptoms of upper abd pain, and noted to have gallbladder and CBD dilation on OP CT abd/pelvis. During the EUS exam he was found to have non distended gallbladder wo stones, and CBD measured 7mm. He was also noted to have non bleeding duodenal perforation, that was managed by Padlock clip placement. Pt current is hemodynamically stable. Labs wo leukocytosis or anemia, normal chem panel. He reports some tenderness over RUQ abd area but denies n/v. Denies also any fever, chills, CP, SOB, bowel habit changes previously. He last had food/drink 8PM yesterday. Had some pain meds at 6AM this morning. Allergies Allergy/AdvReac Type Severity Reaction Status Date / Time No Known Allergies Allergy U Verified 05/16/23 13:06 Home Medications Medication Instructions Recorded Confirmed Type amitriptyline 75 mg tablet 37.5 mg PO HS 08/16/18 06/08/23 History morphine 30 mg tablet,extended 30 mg PO BID 08/16/18 06/08/23 History release oxycodone-acetaminophen 10 mg-325 1 tab PO Q4 PRN Pain 08/16/18 06/08/23 History mg tablet (Percocet) promethazine 25 mg tablet 25 mg PO Q6H PRN Nausea 08/16/18 06/08/23 History atorvastatin 80 mg tablet 80 mg PO QAM 09/12/18 06/08/23 History clopidogrel 75 mg tablet 75 mg PO QAM 09/12/18 06/08/23 History pantoprazole 40 mg tablet,delayed 40 mg PO BID 09/12/18 06/08/23 History release tizanidine 4 mg tablet 8 mg PO TID PRN Pain 09/12/18 06/08/23 History gabapentin 400 mg capsule 400 mg PO TID 09/19/18 06/08/23 History metformin 500 mg tablet 500 mg PO QAM 12/25/18 06/08/23 History azelastine 137 mcg (0.1 %) nasal 2 spray intranasal BID PRN Nasal 03/31/19 06/08/23 History spray aerosol Congestion duloxetine 60 mg capsule,delayed 60 mg PO QAM 04/06/19 06/08/23 History release lisinopril 10 mg tablet 10 mg PO QAM 04/06/19 06/08/23 History topiramate 25 mg tablet 75 mg PO HS 04/06/19 06/08/23 History propranolol 10 mg tablet 10 mg PO QID 09/24/19 06/08/23 History clobetasol 0.05 % topical ointment 1 applic topical BID PRN Rash 10/18/19 06/08/23 History prednisone 5 mg tablet 5 mg PO QAM 10/18/19 06/08/23 History amlodipine 5 mg tablet (Norvasc) 5 mg PO QAM 03/08/20 06/08/23 History clindamycin phosphate 1 % topical 1 applic topical DAILY 09/22/20 06/08/23 History solution bupropion HCl 150 mg 24 hr tablet, 150 mg PO QAM 09/15/21 06/08/23 History extended release dicyclomine 10 mg capsule See Rx Instructions .Route 10/19/21 06/08/23 Rx .COMPLEX #270 caps caffeine 200 mg tablet 200 mg PO BID PRN Headache 10/22/21 06/08/23 History methylcellulose (with sugar) oral 1 tbsp PO DAILY 02/15/23 06/08/23 History powder (Citrucel (sucrose) oral powder) polyethylene glycol 3350 17 17 g PO DAILY 02/15/23 06/08/23 History gram/dose oral powder (Miralax) acetaminophen 325 mg tablet 650 mg PO BID 06/08/23 06/08/23 History (Tylenol) cabergoline 0.5 mg tablet 0.5 mg PO TUFR 06/08/23 06/08/23 History levothyroxine 125 mcg tablet 125 mcg PO DAILY@0630 06/08/23 06/08/23 History sucralfate 1 gram tablet 1 g PO QID 06/08/23 06/08/23 History Patient History Medical History Anxiety BPH (benign prostatic hyperplasia) Chronic neck pain 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 TAKING PLAVIX. Hyperlipidemia Hypertension Hypothyroidism On anticoagulant therapy plavix daily Peptic ulcer disease H/O Prediabetes Tremor of both hands Surgical History Family history of reaction to anesthesia FATHER>ASPIRATED DURING COLONOSCOPY Fusion of spine CERVICAL AREA. UNSURE OF THE LEVELS. LIMITED ROM ALL DIRECTIONS-EASILY CAUSES NECK SPASMS. HAS BEEN INTUBATED SINCE WITHOUT ISSUES. H/O Achilles tendon repair x3--RIGHT FOOT H/O elbow surgery RIGHT ELBOW BONE SPUR REMOVAL H/O shoulder surgery LEFT SHOULDER BONE SPUR REMOVAL H/O: pituitary tumor BENIGN TUMOR REMOVED History of colonoscopy History of esophagogastroduodenoscopy (EGD) History of nasal septoplasty History of tonsillectomy Nausea and vomiting after administration of anesthetic agent S/P LASIK surgery of both eyes S/P UPPP (uvulopalatopharyngoplasty) Family History Uncle Family history of diabetes mellitus Other Hypertension No family history of adverse response to anesthesia Social History Smoking Status: Never smoker Second Hand Exposure: No; Do You Dip or Chew Tobacco: No; Hx Alcohol Use: No Hx Substance Use: No Preferred Language: Tajik Communication Ability: Effective Visual Impairment: No Limitations Hearing Ability: Normal Metal Cleaner Required: No Beliefs That Will Affect Care: None marital status: Single Current Living Situation: Alone Current Living Situation Comment: At home alone Other Information That Helps Us Care for You: No Feels Safe at Home: Yes Safety Concerns: Feels Safe At This Time Assistive Devices: Glasses Review of Systems Review of Systems: All systems reviewed & are unremarkable except as noted in HPI & below Physical Exam Constitutional: WD/WN, vitals as above well groomed, cooperative and comfortable Eyes: PERRL, conjunctivae normal, anicteric sclerae ENMT: external ear and nose normal, oropharynx normal Respiratory: normal respiratory effort, lungs clear to auscultation Cardiovascular: RRR, no murmur, no edema Gastrointestinal (Abdomen): Mild distension, TTP across upper abd, BS hypoactive Skin: no rashes, warm and dry no jaundice Psychiatric: A+Ox3, euthymic affect Lymphatic: no lymphedema Results & Data Vital Signs (Past 12 Hours) Vital Signs Temp Pulse Pulse Resp BP Pulse Ox O2 Del Method 06/08/23 10:17 51 L 06/08/23 10:07 56 L 16 96 Room Air 06/08/23 09:55 36.5 C 58 L 16 137/73 96
--- NOTE | 2023-06-08 11:48 | XRay Report ---
XR chest 1V portable CLINICAL HISTORY: NG placement TECHNIQUE: Single frontal radiograph of the chest was obtained. Comparison: Comparison is made to chest radiograph 03/19/2020 FINDINGS: Enteric tube tip is below the diaphragm. The cardiomediastinal silhouette is normal. Linear density i n the right lung base is noted. No evidence of pleural effusion or pneumothorax. IMPRESSION: Satisfactory position of enteric tube. Linear density in the right lung base is new from prior exam. Attention on CT abdomen pelvis which has already been ordered is recommended to exclude pneumoperiton eum. ACT 112: Positive. There are findings on this exam that require communication between the performing entity and the patient following Patient Test Result Information Act ([place] Act 112) guidelines. Electronically signed by: Johny Kilgore M.D. 06/08/2023 11:46 AM
[2023-06-08] MEDS ORDERED: MoRPHine SULFATE 2 MG/ML CARP IV STA ×2 (13:00)
[2023-06-08] MEDS ORDERED: OPTIRAY 320 100ml IV ONE (13:17)
[2023-06-08] MEDS ORDERED: MoRPHine SULFATE 4 MG/ML 1 ML CARP\\VIAL IV STA (13:39)
--- NOTE | 2023-06-08 13:43 | Surgery Progress Note ---
Discussed this with the surgical PA. Date of Service June 08, 2023 Assessment & Plan (1) Duodenal perforation: Plan: Patient here for evaluation/management of incidentally found and repaired/clipped duodenal perf on EGD/EUS this AM Asked to re-evaluate patient of recent as he developed acute onset of worsening abdominal pain as of ~30 minutes ago Vital signs are stable, HR 60-70's, BPs with systolics in the 150s. He is not in any obvious distress on my evaluation On exam abdomen is distended, with tenderness to palpation from epigastric region across the mid upper abdomen, non peritonitic He just underwent repeat CT scan, will follow up on results closely and further recommendations to follow Repeat blood work is also pending For time being continue pain control, NPO/NGT, IV abx, IV PPI -- Results of CT scan reviewed as in the diagnostic findings section. Overall consistent with s/p duodenal perforation s/p repair with moderate pneumoperitoneum Patients vitals remain stable and exam as above. labs reveal wbc 12, lactate 1. We will continue to follow closely, no indication for acute surgical intervention at this time Subjective Patient reports worsening abdominal pain as of the last 30 minutes or so. Rating it a 10/10 in severity from mid-right upper abdomen radiation into the back. no nausea/vomiting. Received pain meds, went to CT scanner, and now currently re ports it has improved mildly to a 7/10. Physical Exam Physical Exam: awake/alert, no distress Respiratory: normal respiratory effort Gastrointestinal (Abdomen): Inspection/Auscultation: + abdomen distended (mil d) Percussion/Palpation: + abdomen tender (ttp from epigastric region across mid upper abdomen), + guarding ( in RUQ) and abdomen soft NGT in place Results & Data Vital Signs (Past 12 Hours) Vital Signs Temp Pulse Pulse Resp BP Pulse Ox O2 Del Method 06/08/23 10:17 51 L 06/08/23 10:07 56 L 16 96 Room Air 06/08/23 09:55 36.5 C 58 L 16 137/73 96 Diagnostic Findings ABDOMEN AND PELVIS CT WITH IV CONTRAST CT DOSE: 853.89 mGy.cm HISTORY: Acute generalized abdominal pain with recent endoscopy and reported duodenal perforation. duod perf TECHNIQUE: Multiaxial CT images of the abdomen and pelvis were performed following the IV administration of 94 cc of Optiray, A dose lowering technique was utilized adhering to the principles of ALARA. COMPARISON STUDY: CT 03/16/2020 FINDINGS: Mild bibasilar atelectasis. Trace right pleural effusion. Moderate pneumoperitoneum. Unremarkable spleen, and adrenal glands. Probable hepatic steatosis. Patent portal vein. Distended gallbladder. No cholelithiasis identified. Common bile duct measures 8 mm. And moderate pancreatic atrophy. Unremarkable left kidney. There are 2 nonobstructing calculi right kidney measuring up to 4 mm. There are a few subcentimeter right renal cysts. No ureteral calculi or hydronephrosis. Prostamegaly with heterogeneous enhancement. Urinary bladder wall thickening with partial distention. Atherosclerosis of the aorta without aneurysm. No lymphadenopathy. Enteric tube is present terminating within the mid gastric body. There is wall thickening noted involving the second portion of the duodenum with a surgical clip/clamp, adjacent free air and small amount of free fluid. Probable small associated intramural hematoma. Colonic diverticulosis. Moderate fecal retention in the ascending and transverse colon. No CT evidence of acute appendicitis. Trace ascites. Unremarkable soft tissues. No acute fracture. IMPRESSION: 1. Wall thickening involving the second portion of the duodenum with probable small intramural hematoma is noted in conjunction with a metallic occlusion/clamp device. Findings are compatible with acute duodenal perforation with repair. 2. Moderate pneumoperitoneum with small amount of abdominal pelvic ascites. 3. Distal tip of the enteric tube terminates within the gastric body. 4. Right nephrolithiasis. 5. Mild gallbladder distention. 6. Moderate fecal retention of the right hemicolon. ACT 112: Negative or not required by law. The above report was generated using voice recognition software. It may contain grammatical, syntax or spelling errors. Electronically signed by: Delonte Diaz M.D. 06/08/2023 2:24 PM PG Care Time/CCT Total # of Minutes Spent Total Time Spent with Patient: Total time spent is greater than 50% in coordination of care (as documented) at patient's floor/unit and/or counseling patient: Coding Level of Care Code None Diagnoses Duodenal perforation K63.1
--- NOTE | 2023-06-08 14:26 | CT Scan Report ---
ABDOMEN AND PELVIS CT WITH IV CONTRAST CT DOSE: 853.89 mGy.cm HISTORY: Acute generalized abdominal pain with recent endoscopy and reported duodenal perforation. d uod perf TECHNIQUE: Multiaxial CT images of the abdomen and pelvis were performed following the IV administrat ion of 94 cc of Optiray, A dose lowering technique was utilized adhering to the principles of ALARA. COMPARISON STUDY: CT 03/16/2020 FINDINGS: Mild bibasilar atelectasis. Trace right pleural effusion. Moderate pneumoperitoneum. Unrema rkable spleen, and adrenal glands. Probable hepatic steatosis. Patent portal vein. Distended gallblad talia. No cholelithiasis identified. Common bile duct measures 8 mm. And moderate pancreatic atrophy. Unremarkable left kidney. There are 2 nonobstructing calculi right kidney measuring up to 4 mm. There are a few subcentimeter right renal cysts. No ureteral calculi or hydronephrosis. Prostamegaly with heterogeneous enhancement. Urinary bladder wall thickening with partial distention. Atherosclerosis o f the aorta without aneurysm. No lymphadenopathy. Enteric tube is present terminating within the mid gastric body. There is wall thickening noted invol ving the second portion of the duodenum with a surgical clip/clamp, adjacent free air and small amoun t of free fluid. Probable small associated intramural hematoma. Colonic diverticulosis. Moderate feca l retention in the ascending and transverse colon. No CT evidence of acute appendicitis. Trace ascite s. Unremarkable soft tissues. No acute fracture. IMPRESSION: 1. Wall thickening involving the second portion of the duodenum with probable small intramural hemato ma is noted in conjunction with a metallic occlusion/clamp device. Findings are compatible with acute duodenal perforation with repair. 2. Moderate pneumoperitoneum with small amount of abdominal pelvic ascites. 3. Distal tip of the enteric tube terminates within the gastric body. 4. Right nephrolithiasis. 5. Mild gallbladder distention. 6. Moderate fecal retention of the right hemicolon. ACT 112: Negative or not required by law. The above report was generated using voice recognition software. It may contain grammatical, syntax o r spelling errors. Electronically signed by: Delonte Diaz M.D. 06/08/2023 2:24 PM
[2023-06-08 14:30] LABS: Basophils # (auto) 0.02 K/uL (0.00-0.20); Basophils % (auto) 0.2 %; Eosinophils # (auto) 0.12 K/uL (0.00-0.50); Hematocrit (blood only) 45.2 % (42.0-52.0); Hemoglobin 15.4 g/dl (14.0-18.0); Immature Granulocytes # (auto) 0.04 K/uL (0.01-0.20); Immature Granulocytes % (auto) 0.3 %; Lymphocytes # (auto) 1.22 K/uL (1.20-3.40); Mean Corpuscular Hemoglobin 30.1 pg (25.0-34.0); Mean Corpuscular Hgb Conc 34.1 g/dL (32.0-36.0); Mean Corpuscular Volume 88.5 fL (80.0-100.0); Mean Platelet Volume 8.5 fL (9.4-12.4); Monocytes # (auto) 0.43 K/uL (0.11-0.59); Monocytes % (auto) 3.5 %; Platelet Count 221 K/uL (130-400); RDW Coefficient of Variation 11.9 % (11.5-14.5); RDW Standard Deviation 38.1 fL (36.4-46.3); Red Blood Count 5.11 M/uL (4.70-6.10); White Blood Count 12.23 K/ul (4.8-10.8)
[2023-06-08 14:47] LABS: Alanine Aminotransferase 8 U/L (7-52); Albumin Globulin Ratio 1.8 (0.9-2); Alkaline Phosphatase 125 U/L (34-104); Anion Gap 7 (3-11); Aspartate Aminotransferase 16 U/L (13-39); BUN Creatinine Ratio 19.3 (10-20); Bilirubin,Total 0.7 mg/dl (0.2-1.0); Blood Urea Nitrogen 16 mg/dl (6-23); Calcium 8.2 mg/dl (8.6-10.3); Carbon Dioxide 24 mmol/L (21-32); Chloride 109 mmol/L (98-107); Est GFR (African American) 105.5 ml/min; Globulin 2.2 gm/dl (2.5-4.0); Glucose 94 mg/dl (70-99(Fasting)); Lipase 22 U/L (11-82); Potassium 3.7 mmol/L (3.5-5.1); Sodium 140 mmol/L (136-145); Total Protein 6.2 gm/dl (6.0-8.3)
[2023-06-08] MEDS: FLUCONAZOLE 200 MG/100 ML BAG IV SCH ×2 (15:05→17:46)
[2023-06-08] MEDS ORDERED: Patient's HEIGHT Needed STA (15:37)
[2023-06-08] MEDS ORDERED: PIPERACILLIN/TAZOBACTAM 4.5 GM (over 30 mins) IV STA (15:38)
[2023-06-08] MEDS ORDERED: CARBOHYDRATES FOR HYPOGLYCEMIA PO PRN (16:07)
[2023-06-08] MEDS ORDERED: ONDANSETRON INJ 2 MG/ML 2 ML VIAL IV PRN (16:07)
[2023-06-08] MEDS ORDERED: GLUCOSE 10 TAB/TUBE PO PRN (16:07)
[2023-06-08] MEDS ORDERED: FLUTICASONE PROPIONATE NA SPR 16 GM BTL PRN (16:07)
[2023-06-08] MEDS ORDERED: GLUCAGON FOR INJ 1 MG VIAL SQ PRN (16:07)
[2023-06-08] MEDS ORDERED: SODIUM CHLORIDE 0.65% NA SOLN 45 ML (OCEAN) PRN (16:07)
[2023-06-08] MEDS ORDERED: ACETAMINOPHEN 1,000 MG/100 ML VIAL IV PRN (16:07)
[2023-06-08] MEDS ORDERED: GLUCOSE 40% GEL 15 GM TUBE PO PRN (16:07)
[2023-06-08] MEDS ORDERED: DEXTROSE 50% 50 ML SYRINGE IV PRN (16:07)
[2023-06-08 16:16] LABS: Appearance Urine Clear (Clear); Bilirubin Urine Negative (Negative); Blood Urine Negative (Negative); Color Urine Yellow; Glucose Urine UA Negative (Negative); Ketones Urine Negative (Negative); Leukocyte Esterase Urine Negative (Negative); Nitrite Urine Negative (Negative); Protein Urine Negative (Negative); Specific Gravity Urine 1.017 (1.000-1.030); Urobilinogen Urine Negative (Negative); pH Urine 7.5 (4.5-7.5)
[2023-06-08] MEDS: D5W AND 1/2NSS 1,000 ML IV SCH (17:18)
[2023-06-08] MEDS: METOPROLOL TARTRATE 1 MG/ML VIAL IV SCH ×2 (17:23→18:50)
[2023-06-08] MEDS ORDERED: FLUCONAZOLE 200 MG/100 ML BAG IV SCH (17:30)
[2023-06-08] MEDS ORDERED: MoRPHine SULFATE 4 MG/ML 1 ML CARP\\VIAL ONE (17:32)
[2023-06-08] MEDS: MoRPHine SULFATE 10 MG/ML CARP/VIAL IV SCH ×2 (17:45→23:22)
[2023-06-08] MEDS ORDERED: HYDROCORTISONE SOD SUCCINATE 100 MG/2 ML VIAL IV SCH (18:00)
--- NOTE | 2023-06-08 18:07 | Electrocardiogram Report ---
Test Reason : Blood Pressure : / mmHG Vent. Rate : 049 BPM Atrial Rate : 049 BPM P-R Int : 176 ms QRS Dur : 098 ms QT Int : 450 ms P-R-T Axes : 054 -14 012 degrees QTc Int : 406 ms Sinus bradycardia Incomplete right bundle branch block Cannot rule out Anterior infarct , age undetermined Abnormal ECG When compared with ECG of 19-MAR-2020 13:17, Vent. rate has decreased BY 58 BPM Confirmed by Claudio Blanca ([id number]) on 06/08/2023 6:06:43 PM Referred By: Confirmed By:Claudio Blanca
[2023-06-08] MEDS: HYDROCORTISONE SOD 50 MG in SYRINGE 0 ML IV SCH (18:22)
[2023-06-08] MEDS: metroNIDAZOLE 500 MG/100 ML BAG IV SCH (18:23)
[2023-06-08] MEDS ORDERED: PIPERACILLIN/TAZOBACTAM 4.5 GM in DEXTROSE 5% 100 ML IV SCH (20:00)
[2023-06-08] MEDS ORDERED: ENOXAPARIN INJ 40 MG/0.4 ML SYR SQ SCH (21:00)
[2023-06-08] MEDS: PANTOprazole 40 MG in SYRINGE 0 ML IV SCH (23:03)
[2023-06-08] MEDS: CIPROFLOXACIN / D5W 400 MG/200 ML BAG IV SCH (23:04)
--- NOTE | 2023-06-08 23:38 | Communication Note ---
Date of Service: June 08, 2023 This is a 67-year-old male who was admitted to [facility] secondary to a duodenal perforation which occurred during endoscopy. The perf oration was treated endoscopically and patient was admitted to the hospital for further evaluation. The patient was previously seen by the surgical service this afternoon and conservative management was to be employed. I visited with the patient at the bedside at approximately 10:30 PM on 06/08/2023. Patient notes that he continues to have some on/off abdominal pain which is greatest to the right of his umbilicus. He does note that the pain is manageable at the present time. On exam the patient is noted be normotensive, afebrile, and not tachycardic. On exam the patient's abdomen is mildly distended with some pain with palpation to the right of his umbilicus. Patient does have an NG tube in place which is draining bilious material. I did discuss with the patient's nurse who verified that the patient has been hemodynamically stable and afebrile. She did not voice any concerns at this time. We will continue to monitor the patient. Patient revisited at approximately 5:00 AM. He notes that his abdominal pain is no worse than what was noted during my previous encounter. He remains hemodynamically stable without hypotension or tachycardia. He also remains afebrile. I again discussed with the patient's nurse who did not voice any acute concerns at this time.
[2023-06-09] MEDS: METOPROLOL TARTRATE 1 MG/ML VIAL IV SCH ×4 (00:14→17:17)
[2023-06-09] MEDS: metroNIDAZOLE 500 MG/100 ML BAG IV SCH ×3 (01:48→19:43)
[2023-06-09] MEDS: HYDROCORTISONE SOD 50 MG in SYRINGE 0 ML IV SCH ×5 (01:48→21:49)
[2023-06-09] MEDS: D5W AND 1/2NSS 1,000 ML IV SCH ×2 (06:10→17:26)
[2023-06-09 06:17] LABS: Basophils # (auto) 0.02 K/uL (0.00-0.20); Basophils % (auto) 0.2 %; Eosinophils # (auto) 0.01 K/uL (0.00-0.50); Eosinophils % (auto) 0.1 %; Hematocrit (blood only) 45.5 % (42.0-52.0); Hemoglobin 15.7 g/dl (14.0-18.0); Immature Granulocytes # (auto) 0.06 K/uL (0.01-0.20); Immature Granulocytes % (auto) 0.5 %; Lymphocytes # (auto) 0.94 K/uL (1.20-3.40); Lymphocytes % (auto) 8.3 %; Mean Corpuscular Hemoglobin 29.8 pg (25.0-34.0); Mean Corpuscular Hgb Conc 34.5 g/dL (32.0-36.0); Mean Corpuscular Volume 86.5 fL (80.0-100.0); Mean Platelet Volume 8.8 fL (9.4-12.4); Monocytes # (auto) 0.32 K/uL (0.11-0.59); Monocytes % (auto) 2.8 %; Neutrophils # (auto) 10.03 K/uL (1.40-6.50); Neutrophils % (auto) 88.1 %; Platelet Count 263 K/uL (130-400); RDW Standard Deviation 38.1 fL (36.4-46.3); Red Blood Count 5.26 M/uL (4.70-6.10); White Blood Count 11.38 K/ul (4.8-10.8)
[2023-06-09 06:30] LABS: Albumin Globulin Ratio 1.8 (0.9-2); Albumin Level 4.4 gm/dl (3.4-5.0); BUN Creatinine Ratio 16.4 (10-20); Bilirubin,Total 0.9 mg/dl (0.2-1.0); Calcium 8.7 mg/dl (8.6-10.3); Creatinine Clr Calc Pharmacy 98.2 ml/min; Est GFR (African American) 111.2 ml/min; Globulin 2.5 gm/dl (2.5-4.0); Phosphorus 1.6 mg/dl (2.5-4.9); Potassium 3.2 mmol/L (3.5-5.1); Total Protein 6.9 gm/dl (6.0-8.3)
[2023-06-09] MEDS: MoRPHine SULFATE 10 MG/ML CARP/VIAL IV SCH ×3 (06:36→17:17)
[2023-06-09 07:36] LABS: Estimated Average Glucose 123 mg/dl; Hemoglobin A1C 5.9 % (4.5-5.6)
[2023-06-09] MEDS: PANTOprazole 40 MG in SYRINGE 0 ML IV SCH ×2 (08:11→21:50)
[2023-06-09] MEDS ORDERED: CHLORASEPTIC 1.4% SOLN 180 ML BTL MT PRN (08:47)
[2023-06-09] MEDS: CIPROFLOXACIN / D5W 400 MG/200 ML BAG IV SCH ×2 (09:38→21:50)
--- NOTE | 2023-06-09 10:47 | Gastroenterology Progress Note ---
Date of Service June 09, 2023 Assessment & Plan (1) Duodenal perforation: Plan: Pt is a 67 yo male seen for non-bleeding duodenal perforation managed with Padlock clip placement during EGD/EUS procedure 06/08 done for abd pain and eval of gallbladder distension & CBD dilation seen on CT abd/pelvis. He appears comfortable but reports some RUQ tenderness, no n/v, labs wo leukocytosis, no anemia, normal chem panel. - Antibiotics for enteric coverage - Keep NPO - NGT to low intermittent suction to decompress stomach - PPI IV BID - UGI series w gastrograffin to r/o leak today ; if negative leak, may consider starting CL diet, clamping NGT and possible DC home - Surgery aware and consulted - IVF support and symptomatic management Admission and Anticipated Discharge Date Admission Date: June 08, 2023 Supervising Physician Co-Signing Physician Notes I have personally seen and examined the patient with RALPH Petit. Her note reflects my exam and findings. I agree with her impression and plan. Dr. Plascencia would like patient to get Gastrografin study. Clinically stable with no rebound tenderness on exam. Chirag Small M.D. Subjective Pt reports RUQ abd pain less but still present. Having nasal irritation from NGT, and sore throat. NGT output 455ml overnight. Denies n/v. Review of Systems Review of Systems: All systems reviewed & are unremarkable except as noted in HPI & below Physical Exam Constitutional: WD/WN, vitals as above well groomed, cooperative and comfortable Eyes: PERRL, conjunctivae normal, anicteric sclerae ENMT: external ear and nose normal, oropharynx normal (NGT currently not to suction) Respiratory: normal respiratory effort, lungs clear to auscultation Cardiovascular: RRR, no murmur, no edema Gastrointestinal (Abdomen): TTP RUQ, soft, BS hypoacgive Skin: no rashes, warm and dry no jaundice Psychiatric: A+Ox3, euthymic affect Lymphatic: no lymphedema Results & Data Vital Signs (Past 12 Hours) Vital Signs Temp Pulse Pulse Resp BP BP Pulse Ox 06/09/23 07:14 36.8 C 72 21 151/75 H 98 06/09/23 07:51 51 L 06/09/23 05:37 58 L 06/09/23 04:03 37.3 C 79 18 125/55 L 96 08/24/23 00:35 75 132/72 06/09/23 00:14 85 06/08/23 23:22 36.9 C 71 18 150/76 H 99 O2 Del Method 06/09/23 07:14 Room Air 06/09/23 07:51 06/09/23 05:37 06/09/23 04:03 Room Air 06/09/23 00:35 06/09/23 00:14 06/08/23 23:22 Room Air
--- NOTE | 2023-06-09 12:20 | Surgery Progress Note ---
Date of Service June 09, 2023 Assessment & Plan (1) Duodenal perforation: Plan: Patient seems to be improving status post endoscopic repair of a perforated duodenum by GI. HD stable, afebrile. A GI series is ordered for today. We will follow-up results to rule out a leak. If this is negative the patient may be started on clear liquids and recommend Carafate at that time. Continue PPI twice daily at this time. For now continue IV fluids, IV antibiotics. May clamp NG tube to ambulate. The patient is on chemical DVT prophylaxis. Admission and Anticipated Discharge Date Admission Date: June 08, 2023 Subjective This patient was seen and examined. He states that his abdomen does feel improved compared to yesterday. He denies nausea vomiting, has irritation from the NG tube. Says he is passing gas. Physical Exam Constitutional: no acute distress, not ill appearing, not disheveled, not in distress and not diaphoretic Respiratory: normal respiratory effort; no respiratory distress, no labored breathing and does not use accessory muscles Gastrointestinal (Abdomen): Inspection/Auscultation: + abdomen distended (Minimal distention) Percussion/Palpation: + abdomen tender (Mild predominantly in the right abdomen) and abdomen soft; no guarding and abdomen not rigid Neurologic: awake; no focal motor deficits, not confused and not obtunded Results & Data Vital Signs (Past 12 Hours) Vital Signs Temp Pulse Pulse Resp BP BP Pulse Ox 06/09/23 11:49 88 150/74 H 06/09/23 07:14 36.8 C 72 21 151/75 H 98 06/09/23 07:51 51 L 06/09/23 05:37 58 L 06/09/23 04:03 37.3 C 79 18 125/55 L 96 06/09/23 00:35 75 132/72 O2 Del Method 06/09/23 11:49 06/09/23 07:14 Room Air 06/09/23 07:51 06/09/23 05:37 06/09/23 04:03 Room Air 06/09/23 00:35 Laboratory Results WBC 11.38 PG Care Time/CCT Total # of Minutes Spent Total Time Spent with Patient: Total time spent is greater than 50% in coordination of care (as documented) at patient's floor/unit and/or counseling patient: Coding Level of Care Code 77883 SUB INP/OBS CARE 1/25MIN Diagnoses Duodenal perforation K63.1
[2023-06-09] MEDS: FLUCONAZOLE 200 MG/100 ML BAG IV SCH ×2 (14:24→16:14)
[2023-06-09] MEDS ORDERED: POTASSIUM PHOS 3 MMOL/1 ML INFUSION IV STA (14:35)
--- NOTE | 2023-06-09 14:40 | Hospitalist Progress Note ---
Date of Service June 09, 2023 Assessment & Plan (1) Abdominal pain: (2) Duodenal perforation: (3) Status post transsphenoidal pituitary resection: (4) Panhypopituitarism: (5) History of TIA (transient ischemic attack): (6) Chronic narcotic dependence: Plan 67 yr old M who has significant PMH of HTN, HLD, hx of TIA, Pituitary Macroadenoma s/p resection on chronic steroid therapy and resultant central hypothyroidism, hypogonadotropic hypogonadism, PreDM (A1c 5.9), raynauds, GERD, BPH, Diverticulosis, Chronic Pain syndrome, Post Laminectomy syndrome, Seasonal allergies, essential tremor, anxiety who presents at referral of GI 2/2 perforated Duodenum. He is being managed for the following: Abdominal pain Duodenal perforation status post endoscopic clipping POD #1 pt underwent EUS in outpt setting 2/2 dilated bile duct and discovered was a perf duodenum which was treated immediately with endovascular clipping and no evidence of bleeding. ---CT abd pelvis:1. Wall thickening involving the second portion of the duodenum with probable small intramural hematoma is noted in conjunction with a metallic occlusion/clamp device. Findings are compatible with acute duodenal perforation with repair.. Moderate pneumoperitoneum with small amount of abdominal pelvic ascites.. Distal tip of the enteric tube terminates within the gastric body.. Right nephrolithiasis.. Mild gallbladder distention.. Moderate fecal retention of the right hemicolon. conservative management for now, no peritonitic signs, VSS, expected findings in setting of EGD findings with perf duodenum s/p clipping NPO, NG tube in place. Continue with IV PPI twice daily. Continue with IVF. IV antibiotics with Cipro, Flagyl and fluconazole. ID consult. General surgery consulted -GI series, if negative can start on clears. Carafate recommended at the time of starting diet. GI evaluated, n.p.o., NG tube, UGI series. P.o. meds on hold, IV meds substitute when able. Monitor and replete electrolytes History of pituitary macroadenoma status postresection -- Resultant panhypopituitarism, central hypothyroidism hypogonadotropic hypogonadism We will convert essential meds to IV including IV levothyroxine We will give stress dose steroid 100 mg hydrocortisone x1 now and then 50 mg every 6 will need tapered based on NPO status also on oral cabergoline twice weekly Per pt's family life educator is Dr. Debbi Lakhani Andreas: upon completion of rapid IV taper, transition to oral hydrocortisone 15mg am/ 5mg pm. Prednisone is to be discontinued as it is best to be avoided given perforation. Hx of TIA: on plavix and statin HTN: on amlodipine, lisinopril , will monitor bp while on hold, will request nursing reach out if SBP > 160 consistently Chronic pain syndrome Post Laminectomy syndrome pt is on chronic Morphine Sulfate ER 30mg bid, percocet 10-325 q4h prn, gabapentin, cymbalta, elavil will convert Morphine to IV Pre DM: on metformin, last a1c 5.9 in December, A1c of 5. 9 this admission. will monitor accuchecks for now while NPO, will hold on coverage unless consistently elevated Essential Tremor: on propranolol QID. will convert to IV lopressor 2.5mg q6h. DVT ppx: scds. FULL CODE PCP: SUPRIYA Dispo: admit to PCU, NPO now. Admission and Anticipated Discharge Date Admission Date: June 08, 2023 Subjective Patient was seen and examined as a follow-up of duodenal perforation and possibly peritonitis. Patient was sitting up in recliner chair, NAD, reports no new acute event over night, is n.p.o., reports improving abdominal pain, reports no acute changes in his bowel or bladder habit. Denies headache or dizziness or chest pain. Physical Exam Physical Exam: GENERAL: Alert and oriented x3. NAD, on RA. HEENT: No pallor, no icterus. Pupils equal, round and reactive to light. Oral mucosa moist. NG tube clamped to wall suction; 100 ml yellow brown secretion noted. NECK: No JVD, no neck masses. HEART: S1 and S2 heard. Regular rate and rhythm. No murmur, no gallop. RESPIRATORY SYSTEM: Normal AP diameter. No accessory muscle use. No wheezing, no crackles. ABDOMEN: Soft, bowel sounds present, mild epigastric tender w/ minimal rebound tender, no distention. CENTRAL NERVOUS SYSTEM: No facial droop. Speech is clear. Obeys simple commands. Moves extremities. EXTREMITIES: No edema, no erythema seen. Results & Data Results & Data Vital Signs (Past 12 Hours) Vital Signs Temp Pulse Pulse Resp BP BP Pulse Ox 06/09/23 14:23 62 153/72 H 08/24/23 10:33 36.6 C 63 21 156/72 H 99 06/09/23 11:49 88 150/74 H 06/09/23 07:14 36.8 C 72 21 151/75 H 98 06/09/23 07:51 51 L 06/09/23 05:37 58 L 06/09/23 04:03 37.3 C 79 18 125/55 L 96 O2 Del Method 06/09/23 14:23 06/09/23 10:33 Room Air 06/09/23 11:49 06/09/23 07:14 Room Air 06/09/23 07:51 06/09/23 05:37 06/09/23 04:03 Room Air
[2023-06-09] MEDS ORDERED: POTASSIUM PHOSPHATE 21 MMOL in SODIUM CHLORIDE 0.9% 500 ML IV ONE (14:45)
--- NOTE | 2023-06-09 15:29 | Fluoroscopy Report ---
FL upper GI series wo air CLINICAL HISTORY: use gastrografin; r/o leak (duodenal perforation). COMPARISON STUDY: Abdomen and pelvis CT 06/08/2023. FLUOROSCOPY TIME: 1 minute and 44 seconds. FLUOROSCOPY IMAGES: 11 Ka,r: 45.5 mGy FINDINGS: [employer]acer images demonstrate a nasogastric tube within the mid stomach. The patient swallowed w ater-soluble contrast (Optiray 320) without difficulty. The esophagus appears to be normal in course and caliber. Cervical spinal fusion hardware is noted. Contrast is seen within the stomach. There is a metallic occlusion device within the second portion of the duodenum consistent with recent duodenal repair. Lobular filling defect throughout the second portion of the duodenum resulting in severe lulú rowing of the lumen. This likely corresponds to the suspected intramural hematoma seen on the prior C T examination. However, no extraluminal contrast to suggest a leak. Contrast extends into the distal duodenum. No evidence for gastric outlet obstruction at this time. IMPRESSION: 1. Status post duodenal repair. No extraluminal contrast to suggest a leak. 2. Lobular filling defect throughout the second portion of the duodenum resulting in severe narrowing of the lumen. This likely corresponds to the suspected intramural hematoma seen on the prior CT exam ination. Contrast extends into the distal duodenum. No evidence for gastric outlet obstruction at thi s time. ACT 112: Negative or not required by law. Electronically signed by: Ty Bo M.D. 06/09/2023 3:26 PM
[2023-06-09] MEDS: POTASSIUM CHLORIDE / WTR 10 MEQ/100 ML PLCT IV SCH ×3 (15:47→21:48)
--- NOTE | 2023-06-09 15:49 | Electrocardiogram Report ---
Test Reason : Blood Pressure : / mmHG Vent. Rate : 066 BPM Atrial Rate : 066 BPM P-R Int : 154 ms QRS Dur : 100 ms QT Int : 434 ms P-R-T Axes : 015 -23 001 degrees QTc Int : 454 ms Normal sinus rhythm Left atrial enlargement Incomplete right bundle branch block T-wave inversion in Anterior leads , consider ischemia Abnormal ECG When compared with ECG of 08-JUN-2023 10:52, T wave inversion now evident in Anterior leads Confirmed by Alfredo Castellanos ([id number]) on 06/09/2023 3:49:28 PM Referred By: REFERRED SELF Confirmed By:Alfredo Castellanos
[2023-06-10] MEDS: MoRPHine SULFATE 10 MG/ML CARP/VIAL IV SCH ×4 (00:17→18:22)
[2023-06-10] MEDS: METOPROLOL TARTRATE 1 MG/ML VIAL IV SCH ×4 (00:25→18:17)
[2023-06-10] MEDS: HYDROCORTISONE SOD 50 MG in SYRINGE 0 ML IV SCH ×4 (02:27→20:21)
[2023-06-10] MEDS: metroNIDAZOLE 500 MG/100 ML BAG IV SCH ×3 (02:27→20:22)
[2023-06-10] MEDS: POTASSIUM CHLORIDE / WTR 10 MEQ/100 ML PLCT IV SCH (04:55)
[2023-06-10] MEDS ORDERED: FUROSEMIDE INJ 20 MG/2 ML VIAL IV ONE (05:04)
[2023-06-10] MEDS ORDERED: POTASSIUM CHLORIDE PWD 20 MEQ PACK PO STA (05:05)
[2023-06-10 06:21] LABS: Basophils # (auto) 0.02 K/uL (0.00-0.20); Basophils % (auto) 0.2 %; Eosinophils # (auto) 0.01 K/uL (0.00-0.50); Eosinophils % (auto) 0.1 %; Hematocrit (blood only) 43.8 % (42.0-52.0); Hemoglobin 14.7 g/dl (14.0-18.0); Immature Granulocytes # (auto) 0.04 K/uL (0.01-0.20); Immature Granulocytes % (auto) 0.4 %; Lymphocytes # (auto) 0.89 K/uL (1.20-3.40); Lymphocytes % (auto) 8.8 %; Mean Corpuscular Hemoglobin 29.5 pg (25.0-34.0); Mean Corpuscular Hgb Conc 33.6 g/dL (32.0-36.0); Mean Platelet Volume 9.2 fL (9.4-12.4); Monocytes # (auto) 0.29 K/uL (0.11-0.59); Monocytes % (auto) 2.9 %; Neutrophils # (auto) 8.86 K/uL (1.40-6.50); Neutrophils % (auto) 87.6 %; Platelet Count 249 K/uL (130-400); RDW Coefficient of Variation 12.4 % (11.5-14.5); RDW Standard Deviation 39.3 fL (36.4-46.3); Red Blood Count 4.98 M/uL (4.70-6.10); White Blood Count 10.11 K/ul (4.8-10.8)
[2023-06-10 06:42] LABS: Albumin Globulin Ratio 1.7 (0.9-2); Albumin Level 4.2 gm/dl (3.4-5.0); BUN Creatinine Ratio 19.2 (10-20); Bilirubin,Total 0.8 mg/dl (0.2-1.0); Calcium 8.5 mg/dl (8.6-10.3); Creatinine Clr Calc Pharmacy 98.2 ml/min; Est GFR (African American) 111.2 ml/min; Globulin 2.5 gm/dl (2.5-4.0); Potassium 3.5 mmol/L (3.5-5.1); Total Protein 6.7 gm/dl (6.0-8.3)
--- NOTE | 2023-06-10 07:48 | Surgery Progress Note ---
Date of Service June 10, 2023 Assessment & Plan (1) Duodenal perforation: Plan: Patient doing well after endoscopic clipping. He has remained afebrile and with stable vital signs. Upper GI study performed yesterday reveals no leak. He does have a duodenal hematoma which narrows the lumen. The patient has been tolerating clear liquids and may be advanced to full liquid diet today. Taking in small amounts at a time, small frequent meals. The patient states this has been his normal routine anyway prior to this admission. 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 PPI daily at home. Would complete a 7-day course of antibiotics. Ambulate. Admission and Anticipated Discharge Date Admission Date: June 08, 2023 Subjective The patient was seen and examined this a.m. He is without abdominal complaints. No nausea no vomiting continues to pass flatus, tolerating clears. Physical Exam Constitutional: healthy appearing; no acute distress, not ill appearing, no altered mental status and not diaphoretic Respiratory: normal respiratory effort; no respiratory distress, no labored breathing and does not use accessory muscles Gastrointestinal (Abdomen): Inspection/Auscultation: abdomen not distended Percussion/Palpation: abdomen soft; abdomen nontender, no guarding and abdomen not rigid Neurologic: moves all extremities and awake; no focal motor deficits and not confused Results & Data Vital Signs (Past 12 Hours) Vital Signs Temp Pulse Pulse Resp BP BP BP 06/10/23 06:35 72 141/72 H 06/10/23 03:12 36.8 C 63 18 163/72 H 06/10/23 02:09 70 131/63 06/10/23 00:02 36.6 C 70 18 158/73 H 06/10/23 00:25 68 156/86 H 06/09/23 21:30 68 06/09/23 20:37 37.0 C 66 20 155/67 H Pulse Ox O2 Del Method 06/10/23 06:35 06/10/23 03:12 97 Room Air 06/10/23 02:09 06/10/23 00:02 96 Room Air 06/10/23 00:25 06/09/23 21:30 06/09/23 20:37 100 Room Air PG Care Time/CCT Total # of Minutes Spent Total Time Spent with Patient: Total time spent is greater than 50% in coordination of care (as documented) at patient's floor/unit and/or counseling patient: Coding Level of Care Code 08278 SUB INP/OBS CARE Diagnoses Duodenal perforation K63.1
--- NOTE | 2023-06-10 09:12 | Infectious Disease Consult ---
Date of Consultation June 10, 2023 Assessment & Plan (1) Peritonitis: Patient found to have duodenal perforation and presume peritonitis on ciprofloxacin ,flagyl and fluconazole . Present on Admission?: Yes Plan He is hemodynamically stable afebrile and imrpoving .Would recommend treating for 5 days and can switch to oral ciprofloxacin and flagyl when he can tolerate .Thank you for allowing us to participate in the care of this patient .ID will sign off Consultation Information Consultation was provided via telemedicine using two-way real-time interactive telecommunication between the patient and the telemedicine provider. For the duration of the visit, the provider was performing the assessment from a different facility than the patient. This includesuse of bluetooth stethoscope forauscultationperformed by the telepresenter that the telemedicine provider can hear if described in the physical exam. Marketing Sales Consultant contact information: Please call [facility] [phone]. (Phone Number For Physician Use Only) History of Present Illness Reason for Consultation: Duodenal perforation Requesting Physician: Dr. Homero Tavares Attending Physician: Kayleen Weir MD History of Present Illness Pt is a 67 yo male w PMHx of GERD, HTN, HLD, narcotic dependence, PUD, IBS who presented after EGD/EUS procedure for duodenal perforation. Pt was undergoing these endoscopic evaluations for symptoms of upper abd pain, and noted to have gallbladder and CBD dilation on OP CT abd/pelvis. During the EUS exam he was found to have non distended gallbladder wo stones, and CBD measured 7mm. He was also noted to have non bleeding duodenal perforation, that was managed by Padlock clip placement. He was referred for admission to [facility] and was started on ciprofloxacin ,metronidazole and fluconazole Allergies Allergy/AdvReac Type Severity Reaction Status Date / Time No Known Allergies Allergy U Verified 05/16/23 13:06 Home Medications Medication Instructions Recorded Confirmed Type amitriptyline 75 mg tablet 37.5 mg PO HS 08/16/18 06/08/23 History morphine 30 mg tablet,extended 30 mg PO BID 08/16/18 06/08/23 History release oxycodone-acetaminophen 10 mg-325 1 tab PO Q4 PRN Pain 08/16/18 06/08/23 History mg tablet (Percocet) promethazine 25 mg tablet 25 mg PO Q6H PRN Nausea 08/16/18 06/08/23 History atorvastatin 80 mg tablet 80 mg PO QAM 09/12/18 06/08/23 History clopidogrel 75 mg tablet 75 mg PO QAM 09/12/18 06/08/23 History pantoprazole 40 mg tablet,delayed 40 mg PO BID 09/12/18 06/08/23 History release tizanidine 4 mg tablet 8 mg PO TID PRN Pain 09/12/18 06/08/23 History gabapentin 400 mg capsule 400 mg PO TID 09/19/18 06/08/23 History metformin 500 mg tablet 500 mg PO QAM 12/25/18 06/08/23 History azelastine 137 mcg (0.1 %) nasal 2 spray intranasal BID PRN Nasal 03/31/19 06/08/23 History spray aerosol Congestion duloxetine 60 mg capsule,delayed 60 mg PO QAM 04/06/19 06/08/23 History release lisinopril 10 mg tablet 10 mg PO QAM 04/06/19 06/08/23 History topiramate 25 mg tablet 75 mg PO HS 04/06/19 06/08/23 History propranolol 10 mg tablet 10 mg PO QID 09/24/19 06/08/23 History clobetasol 0.05 % topical ointment 1 applic topical BID PRN Rash 10/18/19 06/08/23 History prednisone 5 mg tablet 5 mg PO QAM 10/18/19 06/08/23 History amlodipine 5 mg tablet (Norvasc) 5 mg PO QAM 03/08/20 06/08/23 History clindamycin phosphate 1 % topical 1 applic topical DAILY 09/22/20 06/08/23 History solution bupropion HCl 150 mg 24 hr tablet, 150 mg PO QAM 09/15/21 06/08/23 History extended release dicyclomine 10 mg capsule See Rx Instructions .Route 10/19/21 06/08/23 Rx .COMPLEX #270 caps caffeine 200 mg tablet 200 mg PO BID PRN Headache 10/22/21 06/08/23 History methylcellulose (with sugar) oral 1 tbsp PO DAILY 02/15/23 06/08/23 History powder (Citrucel (sucrose) oral powder) polyethylene glycol 3350 17 17 g PO DAILY 02/15/23 06/08/23 History gram/dose oral powder (Miralax) acetaminophen 325 mg tablet 650 mg PO BID 06/08/23 06/08/23 History (Tylenol) cabergoline 0.5 mg tablet 0.5 mg PO TUFR 06/08/23 06/08/23 History levothyroxine 125 mcg tablet 125 mcg PO DAILY@0630 06/08/23 06/08/23 History sucralfate 1 gram tablet 1 g PO QID 06/08/23 06/08/23 History Patient History Medical History Anxiety BPH (benign prostatic hyperplasia) Chronic neck pain 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 TAKING PLAVIX. Hyperlipidemia Hypertension Hypothyroidism On anticoagulant therapy plavix daily Peptic ulcer disease H/O Prediabetes Tremor of both hands Surgical History Family history of reaction to anesthesia FATHER>ASPIRATED DURING COLONOSCOPY Fusion of spine CERVICAL AREA. UNSURE OF THE LEVELS. LIMITED ROM ALL DIRECTIONS-EASILY CAUSES NECK SPASMS. HAS BEEN INTUBATED SINCE WITHOUT ISSUES. H/O Achilles tendon repair x3--RIGHT FOOT H/O elbow surgery RIGHT ELBOW BONE SPUR REMOVAL H/O shoulder surgery LEFT SHOULDER BONE SPUR REMOVAL H/O: pituitary tumor BENIGN TUMOR REMOVED History of colonoscopy History of esophagogastroduodenoscopy (EGD) History of nasal septoplasty History of tonsillectomy Nausea and vomiting after administration of anesthetic agent S/P LASIK surgery of both eyes S/P UPPP (uvulopalatopharyngoplasty) Family History Uncle Family history of diabetes mellitus Other Hypertension No family history of adverse response to anesthesia Social History Smoking Status: Never smoker Second Hand Exposure: No; Do You Dip or Chew Tobacco: No; Hx Alcohol Use: No Hx Substance Use: No Preferred Language: Spanish Communication Ability: Effective Visual Impairment: No Limitations Hearing Ability: Normal Supervisor [employer] Required: No Beliefs That Will Affect Care: None marital status: Single Current Living Situation: Alone Current Living Situation Comment: At home alone Other Information That Helps Us Care for You: No Feels Safe at Home: Yes Safety Concerns: Feels Safe At This Time Assistive Devices: None Results & Data Vital Signs (Past 12 Hours) Vital Signs Temp Pulse Pulse Resp BP BP BP 06/10/23 08:17 36.7 C 70 18 147/68 H 06/10/23 06:35 72 141/72 H 06/10/23 03:12 36.8 C 63 18 163/72 H 06/10/23 02:09 70 131/63 06/10/23 00:02 36.6 C 70 18 158/73 H 06/10/23 00:25 68 156/86 H 06/09/23 21:30 68 Pulse Ox O2 Del Method 06/10/23 08:17 100 Room Air 06/10/23 06:35 06/10/23 03:12 97 Room Air 06/10/23 02:09 06/10/23 00:02 96 Room Air 06/10/23 00:25 06/09/23 21:30
[2023-06-10] MEDS: PANTOprazole 40 MG in SYRINGE 0 ML IV SCH ×2 (09:36→22:49)
[2023-06-10] MEDS: CIPROFLOXACIN / D5W 400 MG/200 ML BAG IV SCH ×2 (09:37→22:49)
[2023-06-10] MEDS ORDERED: POTASSIUM PHOS 3 MMOL/1 ML INFUSION IV STA (09:54)
--- NOTE | 2023-06-10 09:55 | Gastroenterology Progress Note ---
Date of Service June 10, 2023 Assessment & Plan (1) Duodenal perforation: Plan: Pt is a 67 yo male with non-bleeding duodenal perforation managed with Padlock clip placement during EGD/EUS procedure 06/08 done for abd pain and eval of gallbladder distension & CBD dilation seen on CT abd/pelvis. Upper GI series with Gastrografin study yesterday showed no signs of leak through the perforation. He is tolerating clear liquids diet without abdominal pain, nausea or vomiting. NG tube has been removed. - Antibiotics for enteric coverage - PPI IV BID - Clear liquids diet today, may advance to full liquids diet tomorrow and if still tolerating well can further advance slowly to soft diet by Tuesday with potential discharge at that time. - Surgery following - IVF support and symptomatic management Admission and Anticipated Discharge Date Admission Date: June 08, 2023 Supervising Physician Co-Signing Physician Notes I saw and evaluated the patient. The patient seems to be recovering well from the recent duodenal perforation during endoscopic ultrasound. The upper GI series obtained yesterday is quite reassuring as there was no evidence of residual leak. Recommendations continue antibiotic coverage for total of 10 days Clear liquid diet today then full diet tomorrow then mechanical soft diet on Tuesday If patient tolerates mechanical soft diet on Tuesday may consider afternoon discharge Subjective Patient's NG tube has been removed. He is tolerating clear liquids diet. He denies any abdominal pain, nausea or vomiting. Passing little amounts of flatus. Review of Systems Review of Systems: All systems reviewed & are unremarkable except as noted in HPI & below Physical Exam Constitutional: WD/WN, vitals as above well groomed, cooperative and comfortable Eyes: PERRL, conjunctivae normal, anicteric sclerae ENMT: external ear and nose normal, oropharynx normal (NGT currently not to suction) Respiratory: normal respiratory effort, lungs clear to auscultation Cardiovascular: RRR, no murmur, no edema Gastrointestinal (Abdomen): normal bowel sounds, soft, nontender, no hepatosplenomegaly Skin: no rashes, warm and dry no jaundice Psychiatric: A+Ox3, euthymic affect Lymphatic: no lymphedema Results & Data Vital Signs (Past 12 Hours) Vital Signs Temp Pulse Pulse Resp BP BP BP 06/10/23 08:17 36.7 C 70 18 147/68 H 06/10/23 06:35 72 141/72 H 06/10/23 03:12 36.8 C 63 18 163/72 H 06/10/23 02:09 70 131/63 06/10/23 00:02 36.6 C 70 18 158/73 H 06/10/23 00:25 68 156/86 H Pulse Ox O2 Del Method 06/10/23 08:17 100 Room Air 06/10/23 06:35 06/10/23 03:12 97 Room Air 06/10/23 02:09 06/10/23 00:02 96 Room Air 06/10/23 00:25
[2023-06-10] MEDS ORDERED: POTASSIUM PHOSPHATE 15 MMOL in SODIUM CHLORIDE 0.9% 250 ML IV ONE (10:30)
[2023-06-10] MEDS: FLUCONAZOLE 200 MG/100 ML BAG IV SCH ×2 (15:42→18:11)
--- NOTE | 2023-06-10 15:53 | Hospitalist Progress Note ---
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 He is being managed for the following: Abdominal pain Duodenal perforation status post endoscopic clipping POD #1 pt underwent EUS in outpt setting 2/2 dilated bile duct and discovered was a perf duodenum which was treated immediately with endovascular clipping and no evidence of bleeding. ---CT abd pelvis:1. Wall thickening involving the second portion of the duodenum with probable small intramural hematoma is noted in conjunction with a metallic occlusion/clamp device. Findings are compatible with acute duodenal perforation with repair.. Moderate pneumoperitoneum with small amount of abdominal pelvic ascites.. Distal tip of the enteric tube terminates within the gastric body.. Right nephrolithiasis.. Mild gallbladder distention.. Moderate fecal retention of the right hemicolon. conservative management for now, no peritonitic signs, VSS, expected findings in setting of EGD findings with perf duodenum s/p clipping Upper GI series with no leak. NG tube removed, patient tolerating clear liquid diet. Continue PPI IV twice daily, likely full liquid diet tomorrow. IV antibiotics with Cipro, Flagyl and fluconazole. ID consult -continue the above antimicrobial therapy for 5 days. General surgery on board, appreciate recommendation GI evaluated, appreciate recommendation P.o. meds on hold, IV meds substitute when able. Monitor and replete electrolytes History of pituitary macroadenoma status postresection -- Resultant panhypopituitarism, central hypothyroidism hypogonadotropic hypogonadism We will convert essential meds to IV including IV levothyroxine We will give stress dose steroid 100 mg hydrocortisone x1 now and then 50 mg every 6 -- today every 8 hours will need tapered based on NPO status also on oral cabergoline twice weekly Per pt's toilet attendant is Dr. Debbi Cooperi: upon completion of rapid IV taper, transition to oral hydrocortisone 15mg am/ 5mg pm. Prednisone is to be discontinued as it is best to be avoided given perforation. Hx of TIA: on plavix and statin HTN: on amlodipine, lisinopril , will monitor bp while on hold, will request nursing reach out if SBP > 160 consistently Chronic pain syndrome Post Laminectomy syndrome pt is on chronic Morphine Sulfate ER 30mg bid, percocet 10-325 q4h prn, gabapentin, cymbalta, elavil will convert Morphine to IV Pre DM: on metformin, last a1c 5.9 in December, A1c of 5. 9 this admission. will monitor accuchecks for now while NPO, will hold on coverage unless consistently elevated Essential Tremor: on propranolol QID. will convert to IV lopressor 2.5mg q6h. DVT ppx: scds. FULL CODE PCP: SUPRIYA Dispo: admit to PCU. Admission and Anticipated Discharge Date Admission Date: June 08, 2023 Subjective Patient was seen and examined as a follow-up of duodenal perforation and possibly peritonitis. Patient was sitting up in recliner chair, NAD, reports no new acute event overnight, reports improving abdominal pain and has been tolerating clear liquid diet, reports no acute changes in his bowel or bladder habit. Denies headache or dizziness or chest pain. Physical Exam Physical Exam: GENERAL: Alert and oriented x3. NAD, on RA. HEENT: No pallor, no icterus. Pupils equal, round and reactive to light. Oral mucosa moist. NECK: No JVD, no neck masses. HEART: S1 and S2 heard. Regular rate and rhythm. No murmur, no gallop. RESPIRATORY SYSTEM: Normal AP diameter. No accessory muscle use. No wheezing, no crackles. ABDOMEN: Soft, bowel sounds present, mild epigastric tender w/ minimal rebound tender, no distention. CENTRAL NERVOUS SYSTEM: No facial droop. Speech is clear. Obeys simple commands. Moves extremities. EXTREMITIES: No edema, no erythema seen. Results & Data Results & Data Vital Signs (Past 12 Hours) Vital Signs Temp Pulse Pulse Resp BP BP Pulse Ox 06/10/23 13:20 100 H 161/78 H 06/10/23 12:03 36.6 C 76 17 161/78 H 95 06/10/23 08:17 70 147/68 H 06/10/23 08:17 36.7 C 70 18 147/68 H 100 06/10/23 06:35 72 141/72 H O2 Del Method 06/10/23 13:20 06/10/23 12:03 Room Air 06/10/23 08:17 06/10/23 08:17 Room Air 06/10/23 06:35
[2023-06-10] MEDS: D5W AND 1/2NSS 1,000 ML IV SCH (20:34)
[2023-06-11] MEDS: METOPROLOL TARTRATE 1 MG/ML VIAL IV SCH ×3 (00:06→11:49)
[2023-06-11] MEDS: MoRPHine SULFATE 10 MG/ML CARP/VIAL IV SCH ×3 (00:08→11:45)
[2023-06-11] MEDS: HYDROCORTISONE SOD 50 MG in SYRINGE 0 ML IV SCH ×2 (03:03→09:45)
[2023-06-11] MEDS: metroNIDAZOLE 500 MG/100 ML BAG IV SCH ×3 (03:04→17:22)
[2023-06-11 05:20] LABS: Basophils # (auto) 0.01 K/uL (0.00-0.20); Basophils % (auto) 0.1 %; Eosinophils # (auto) 0.05 K/uL (0.00-0.50); Eosinophils % (auto) 0.5 %; Hematocrit (blood only) 35.8 % (42.0-52.0); Hemoglobin 12.6 g/dl (14.0-18.0); Immature Granulocytes # (auto) 0.04 K/uL (0.01-0.20); Immature Granulocytes % (auto) 0.4 %; Lymphocytes % (auto) 13.2 %; Mean Corpuscular Hemoglobin 30.2 pg (25.0-34.0); Mean Corpuscular Hgb Conc 35.2 g/dL (32.0-36.0); Mean Corpuscular Volume 85.9 fL (80.0-100.0); Mean Platelet Volume 9.2 fL (9.4-12.4); Monocytes # (auto) 0.49 K/uL (0.11-0.59); Neutrophils # (auto) 7.97 K/uL (1.40-6.50); Neutrophils % (auto) 80.8 %; Platelet Count 233 K/uL (130-400); RDW Coefficient of Variation 12.4 % (11.5-14.5); RDW Standard Deviation 38.5 fL (36.4-46.3); Red Blood Count 4.17 M/uL (4.70-6.10); White Blood Count 9.86 K/ul (4.8-10.8)
[2023-06-11 05:37] LABS: Albumin Globulin Ratio 1.7 (0.9-2); Albumin Level 3.4 gm/dl (3.4-5.0); BUN Creatinine Ratio 29.3 (10-20); Bilirubin,Total 0.6 mg/dl (0.2-1.0); Creatinine Clr Calc Pharmacy 123.6 ml/min; Est GFR (African American) 122.3 ml/min; Est GFR (Non-African American) 105.5 ml/min; Magnesium 1.9 mg/dl (1.7-2.4); Phosphorus 1.8 mg/dl (2.5-4.9); Potassium 3.2 mmol/L (3.5-5.1); Total Protein 5.4 gm/dl (6.0-8.3)
[2023-06-11] MEDS ORDERED: LEVOTHYROXINE SODIUM 62.5 MCG in SYRINGE 0 ML IV SCH (06:30)
--- NOTE | 2023-06-11 07:18 | Electrocardiogram Report ---
Test Reason : Blood Pressure : / mmHG Vent. Rate : 054 BPM Atrial Rate : 054 BPM P-R Int : 148 ms QRS Dur : 094 ms QT Int : 460 ms P-R-T Axes : 055 030 043 degrees QTc Int : 436 ms Sinus bradycardia Otherwise normal ECG When compared with ECG of 09-JUN-2023 14:03, T wave inversion no longer evident in Inferior leads T wave inversion no longer evident in Anterolateral leads Confirmed by Srinivas Morton ([id number]) on 06/11/2023 7:18:31 AM Referred By: REFERRED SELF Confirmed By:Abdiel Morton
--- NOTE | 2023-06-11 08:07 | Gastroenterology Progress Note ---
Date of Service June 11, 2023 Assessment & Plan (1) Bowel perforation: Plan: Seems to be doing well. Will advance to full liquid, if tolerates, soft diet tomorrow and home if okay Admission and Anticipated Discharge Date Admission Date: June 08, 2023 Subjective Sitting in chair. Feels "95%" back to normal. Ready to advance diet Physical Exam Physical Exam: He looks well Constitutional: WD/WN, vitals as above Results & Data Vital Signs (Past 12 Hours) Vital Signs Temp Pulse Pulse Resp BP BP BP 06/11/23 06:14 63 134/75 06/11/23 04:15 36.5 C 56 L 18 132/57 L 06/11/23 01:27 68 06/11/23 00:21 54 L 120/79 06/10/23 23:21 36.7 C 72 18 135/63 06/11/23 00:06 73 135/72 06/10/23 20:12 36.7 C 62 18 154/69 H Pulse Ox O2 Del Method 06/11/23 06:14 06/11/23 04:15 97 Room Air 06/11/23 01:27 06/11/23 00:21 06/10/23 23:21 99 Room Air 06/11/23 00:06 06/10/23 20:12 97 Room Air
[2023-06-11] MEDS: PANTOprazole 40 MG in SYRINGE 0 ML IV SCH (09:45)
[2023-06-11] MEDS: CIPROFLOXACIN / D5W 400 MG/200 ML BAG IV SCH ×2 (09:45→21:23)
[2023-06-11] MEDS ORDERED: HYDROCORTISONE SOD 50 MG in SYRINGE 0 ML IV SCH ×2 (10:00→22:00)
[2023-06-11] MEDS: POTASSIUM CHLORIDE / WTR 10 MEQ/100 ML PLCT IV SCH ×3 (10:30→13:36)
--- NOTE | 2023-06-11 11:37 | Surgery Progress Note ---
Date of Service June 11, 2023 Assessment & Plan (1) Bowel perforation: Plan: Duodenal perf during EGD/ EUS. Sealed with clip. Imaging shows no residual leak. Overall doing well. Advance to full liquids today, soft diet tomorrow with plan discharge tomorrow if tolerates. Agree with antibiotics for total of 10 days. Admission and Anticipated Discharge Date Admission Date: June 08, 2023 Subjective Feels well. No further abdominal pain. No nausea. tolerating clears. Does feel hungry. Physical Exam Constitutional: WD/WN, vitals as above Respiratory: normal respiratory effort, lungs clear to auscultation Cardiovascular: RRR, no murmur, no edema Gastrointestinal (Abdomen): normal bowel sounds, soft, nontender, no hepatosplenomegaly Neurologic: awake; no focal motor deficits Results & Data Vital Signs (Past 12 Hours) Vital Signs Temp Pulse Pulse Resp BP BP BP 06/11/23 08:00 94 H 06/11/23 08:16 36.6 C 54 L 20 152/69 H 06/11/23 06:14 63 134/75 06/11/23 04:15 36.5 C 56 L 18 132/57 L 06/11/23 01:27 68 06/11/23 00:21 54 L 120/79 06/11/23 00:06 73 135/72 Pulse Ox O2 Del Method 06/11/23 08:00 06/11/23 08:16 99 Room Air 06/11/23 06:14 06/11/23 04:15 97 Room Air 06/11/23 01:27 06/11/23 00:21 06/11/23 00:06 Laboratory Results 06/11/23 06/11/23 Range/Units 04:25 04:25 WBC 9.86 (4.8-10.8) K/ul RBC 4.17 L (4.70-6.10) M/uL Hgb 12.6 L (14.0-18.0) g/dl Hct 35.8 L (42.0-52.0) % MCV 85.9 (80.0-100.0) fL MCH 30.2 (25.0-34.0) pg MCHC 35.2 (32.0-36.0) g/dL RDW Std Deviation 38.5 (36.4-46.3) fL RDW Coeff of Neida 12.4 (11.5-14.5) % Plt Count 233 (130-400) K/uL MPV 9.2 L (9.4-12.4) fL Immature Gran % (Auto) 0.4 % Neut % (Auto) 80.8 % Lymph % (Auto) 13.2 % Dukes % (Auto) 5.0 % Eos % (Auto) 0.5 % Baso % (Auto) 0.1 % Neut # (Auto) 7.97 H (1.40-6.50) K/uL Lymph # (Auto) 1.30 (1.20-3.40) K/uL Dukes # (Auto) 0.49 (0.11-0.59) K/uL Eos # (Auto) 0.05 (0.00-0.50) K/uL Baso # (Auto) 0.01 (0.00-0.20) K/uL Immature Gran # (Auto) 0.04 (0.01-0.20) K/uL Sodium 143 (136-145) mmol/L Potassium 3.2 L (3.5-5.1) mmol/L Chloride 115 H (98-107) mmol/L Carbon Dioxide 22 (21-32) mmol/L Anion Gap 6 (3-11) BUN 17 (6-23) mg/dl Creatinine 0.58 L (0.6-1.4) mg/dl Est Cr Clr Drug Dosing 123.6 ml/min Est GFR ( Amer) 122.3 ml/min Est GFR (Non-Af Amer) 105.5 ml/min BUN/Creatinine Ratio 29.3 H (10-20) Glucose 101 H (70-99(Fasting)) mg/dl Calcium 8.0 L (8.6-10.3) mg/dl Phosphorus 1.8 L (2.5-4.9) mg/dl Magnesium 1.9 (1.7-2.4) mg/dl Total Bilirubin 0.6 (0.2-1.0) mg/dl AST 17 (13-39) U/L ALT 7 (7-52) U/L Alkaline Phosphatase 89 (34-104) U/L Total Protein 5.4 L (6.0-8.3) gm/dl Albumin 3.4 (3.4-5.0) gm/dl Globulin 2.0 L (2.5-4.0) gm/dl Albumin/Globulin Ratio 1.7 (0.9-2)
[2023-06-11] MEDS ORDERED: MoRPHine SULFATE 10 MG/ML CARP/VIAL IV PRN (11:50)
[2023-06-11] MEDS: POT PHOSPHATE MONOBASIC W/ SOD TAB PO SCH ×3 (13:36→21:17)
[2023-06-11] MEDS: FLUCONAZOLE 200 MG/100 ML BAG IV SCH ×2 (14:48→15:55)
[2023-06-11] MEDS ORDERED: tiZANidine HCL 4 MG TABLET PO PRN (16:46)
--- NOTE | 2023-06-11 16:51 | Hospitalist Progress Note ---
Date of Service June 11, 2023 Assessment & Plan (1) Abdominal pain: (2) Duodenal perforation: (3) Status post transsphenoidal pituitary resection: (4) Panhypopituitarism: (5) History of TIA (transient ischemic attack): (6) Chronic narcotic dependence: Plan 67 yr old M who has significant PMH of HTN, HLD, hx of TIA, Pituitary Macroadenoma s/p resection on chronic steroid therapy and resultant central hypothyroidism, hypogonadotropic hypogonadism, PreDM (A1c 5.9), raynauds, GERD, BPH, Diverticulosis, Chronic Pain syndrome, Post Laminectomy syndrome, Seasonal allergies, essential tremor, anxiety who presents at referral of GI 2/2 perforated Duodenum. He is being managed for the following: Abdominal pain Duodenal perforation status post endoscopic clipping pt underwent EUS in outpt setting 2/2 dilated bile duct and discovered was a perf duodenum which was treated immediately with endovascular clipping and no evidence of bleeding. ---CT abd pelvis:1. Wall thickening involving the second portion of the duodenum with probable small intramural hematoma is noted in conjunction with a metallic occlusion/clamp device. Findings are compatible with acute duodenal perforation with repair.. Moderate pneumoperitoneum with small amount of abdominal pelvic ascites.. Distal tip of the enteric tube terminates within the gastric body.. Right nephrolithiasis.. Mild gallbladder distention.. Moderate fecal retention of the right hemicolon. conservative management for now, no peritonitic signs, VSS, expected findings in setting of EGD findings with perf duodenum s/p clipping Upper GI series with no leak. Patient tolerating clear liquid diet -- to full liq today, IV to PO PPI today. IV antibiotics with Cipro, Flagyl and fluconazole. ID consult -agrees w/ above antimicrobial therapy. General surgery on board, appreciate recommendation GI evaluated, appreciate recommendation Resume home PO meds. Monitor and replete electrolytes History of pituitary macroadenoma status postresection -- Resultant panhypopituitarism, central hypothyroidism hypogonadotropic hypogonadism We will give stress dose steroid 100 mg hydrocortisone x1 now and then 50 mg every 6 -- today every 8 hours -- today every 12 hours also on oral cabergoline twice weekly Per pt's shingle sawyer is Dr. Debbi Johns: upon completion of rapid IV taper, transition to oral hydrocortisone 15mg am/ 5mg pm. Prednisone is to be discontinued as it is best to be avoided given perforation. Hx of TIA: on plavix and statin, resume as able. HTN: on amlodipine, lisinopril , resumed Chronic pain syndrome Post Laminectomy syndrome pt is on chronic Morphine Sulfate ER 30mg bid, percocet 10-325 q4h prn, gabapentin, cymbalta, elavil. resumed psychiatry meds. will convert Morphine to IV Pre DM: on metformin, last a1c 5.9 in December, A1c of 5. 9 this admission. will mo nitor accuchecks for now, will hold on coverage unless consistently elevated Essential Tremor: on propranolol QID. will convert to IV lopressor 2.5mg q6h. ---> dc iv, resume home propranolol DVT ppx: scds. FULL CODE PCP: SUPRIYA Dispo: admit to PCU. Admission and Anticipated Discharge Date Admission Date: June 08, 2023 Subjective Patient was seen and examined as a follow-up of duodenal perforation and possibly peritonitis. Patient was sitting up in recliner chair, NAD, reports no new acute event overnight, reports no abdominal pain and has been tolerating clear liquid diet - to full liq today, reports no acute changes in his bowel or bladder habit. Denies headache or dizziness or chest pain. d/w sx, adv to full liq today, soft diet mikal, if tolerating, can dc mikal. Physical Exam Physical Exam: GENERAL: Alert and oriented x3. NAD, on RA. HEENT: No pallor, no icterus. Pupils equal, round and reactive to light. Oral mucosa moist. NECK: No JVD, no neck masses. HEART: S1 and S2 heard. Regular rate and rhythm. No murmur, no gallop. RESPIRATORY SYSTEM: Normal AP diameter. No accessory muscle use. No wheezing, no crackles. ABDOMEN: Soft, bowel sounds present, mild epigastric tender w/ minimal rebound tender --> improved, no distention. CENTRAL NERVOUS SYSTEM: No facial droop. Speech is clear. Obeys simple commands. Moves extremities. EXTREMITIES: No edema, no erythema seen. Results & Data Results & Data Vital Signs (Past 12 Hours) Vital Signs Temp Pulse Pulse Resp BP BP BP 06/11/23 16:26 36.8 C 66 20 142/69 H 06/11/23 12:31 36.6 C 58 L 19 146/69 H 06/11/23 12:04 71 06/11/23 08:00 94 H 06/11/23 08:16 36.6 C 54 L 20 152/69 H 06/11/23 06:14 63 134/75 Pulse Ox O2 Del Method 06/11/23 16:26 100 Room Air 06/11/23 12:31 100 Room Air 06/11/23 12:04 06/11/23 08:00 06/11/23 08:16 99 Room Air 06/11/23 06:14
[2023-06-11] MEDS: SUCRALFATE 1 GM TAB PO SCH ×2 (17:22→21:19)
[2023-06-11] MEDS: PROPRANOLOL HCL 10 MG TAB PO SCH ×2 (17:22→21:17)
[2023-06-11] MEDS: ADVANCED PROBIOTIC 1250 MG CAPSULE PO SCH (17:22)
[2023-06-11] MEDS ORDERED: TOPIRAMATE 25 MG TAB PO SCH (21:00)
[2023-06-11] MEDS ORDERED: AMITRIPTYLINE HCL 25 MG TAB PO SCH (21:00)
[2023-06-11] MEDS: PANTOprazole 40 MG TAB PO SCH (21:18)
[2023-06-11] MEDS: DICYCLOMINE HCL 10 MG CAP PO SCH (21:18)
[2023-06-11] MEDS: GABAPENTIN 400 MG CAP PO SCH (21:21)
--- NOTE | 2023-06-11 23:07 | Communication Note ---
Date of Service: June 11, 2023 11 PM Notified by RN of difficult arousal by staff during routine vital signs check. Patient's speech noted to be slightly slurred. RN noted slight right facial droop. Transient bradycardia 40s. SBP 130s. BSG 120s Patient currently without complaints. Does not think speech is slurred. PPE Mild lethargy, mild dysarthria No facial asymmetry MMTS BUE/BLE 4/5 AP Lethargy, dysarthria, transient facial droop, transient bradycardia Likely secondary to polypharmacy (Patient received tizanidine, Topamax, amitriptyline, gabapentin, ciprofloxacin, and propanolol around 9 PM) Hold parameters for sedation and confusion for neuropsychotropic medications. Additional order comment entered for patient's as needed tizanidine not to be administered together with amitriptylin, gabapentin, and other narcotic medications.
[2023-06-11] MEDS ORDERED: MAGNESIUM SULFATE / D5W 1 GM/100 ML BAG IV ONE (23:45)
[2023-06-12 00:11] LABS: Thyroid Stimulating Hormone 0.197 uIu/ml (0.300-4.500)
[2023-06-12] MEDS ORDERED: tiZANidine HCL 4 MG TABLET PO PRN (00:35)
[2023-06-12] MEDS ORDERED: SODIUM CHLOR 0.45% + 20MEQ KCL 20 MEQ/1,000 ML BAG IV ONE (00:45)
[2023-06-12] MEDS: metroNIDAZOLE 500 MG/100 ML BAG IV SCH ×2 (01:05→09:57)
[2023-06-12 05:19] LABS: Hematocrit (blood only) 34.2 % (42.0-52.0); Hemoglobin 11.9 g/dl (14.0-18.0); Mean Corpuscular Hemoglobin 29.7 pg (25.0-34.0); Mean Corpuscular Hgb Conc 34.8 g/dL (32.0-36.0); Mean Corpuscular Volume 85.3 fL (80.0-100.0); Mean Platelet Volume 9.2 fL (9.4-12.4); Platelet Count 231 K/uL (130-400); RDW Coefficient of Variation 12.5 % (11.5-14.5); RDW Standard Deviation 38.6 fL (36.4-46.3); Red Blood Count 4.01 M/uL (4.70-6.10); White Blood Count 8.32 K/ul (4.8-10.8)
[2023-06-12 05:38] LABS: BUN Creatinine Ratio 22.8 (10-20); Calcium 7.9 mg/dl (8.6-10.3); Creatinine Clr Calc Pharmacy 125.8 ml/min; Est GFR (African American) 123.2 ml/min; Est GFR (Non-African American) 106.3 ml/min; Phosphorus 3.4 mg/dl (2.5-4.9); Potassium 3.2 mmol/L (3.5-5.1)
[2023-06-12] MEDS ORDERED: LEVOTHYROXINE SODIUM 125 MCG TABLET PO SCH (06:30)
--- NOTE | 2023-06-12 08:14 | Gastroenterology Progress Note ---
Date of Service June 12, 2023 Assessment & Plan (1) Bowel perforation: Plan: Will advance diet. If tolerates should be able to go home from our standpoint. Agree with 10 days antibiotics Admission and Anticipated Discharge Date Admission Date: June 08, 2023 Subjective Events or non events of last night noted. He feels well. No abdominal pain. Wants to eat. Wants to go home Physical Exam Physical Exam: Sitting in chair, looks well Constitutional: WD/WN, vitals as above Results & Data Vital Signs (Past 12 Hours) Vital Signs Temp Pulse Pulse Resp BP BP Pulse Ox 06/12/23 03:51 36.5 C 55 L 18 134/66 98 06/11/23 22:56 37.2 C 46 L 16 132/61 97 06/11/23 23:54 63 O2 Del Method 06/12/23 03:51 Room Air 06/11/23 22:56 Room Air 06/11/23 23:54
[2023-06-12] MEDS: ADVANCED PROBIOTIC 1250 MG CAPSULE PO SCH (08:19)
[2023-06-12] MEDS: GABAPENTIN 400 MG CAP PO SCH ×2 (08:19→14:19)
[2023-06-12] MEDS: PANTOprazole 40 MG TAB PO SCH (08:20)
[2023-06-12] MEDS: SUCRALFATE 1 GM TAB PO SCH ×2 (08:20→12:22)
[2023-06-12] MEDS: DICYCLOMINE HCL 10 MG CAP PO SCH ×2 (08:20→14:19)
[2023-06-12] MEDS: POT PHOSPHATE MONOBASIC W/ SOD TAB PO SCH ×2 (08:20→12:23)
[2023-06-12] MEDS: PROPRANOLOL HCL 10 MG TAB PO SCH ×2 (08:21→12:23)
[2023-06-12] MEDS ORDERED: lisinopril 10 MG TAB PO SCH (09:00)
[2023-06-12] MEDS ORDERED: DULoxetine HCL 60 MG CAP PO SCH (09:00)
[2023-06-12] MEDS ORDERED: amLODIPine BESYLATE 5 MG TAB PO SCH (09:00)
[2023-06-12] MEDS ORDERED: buPROPion XL 150 MG TABCR PO SCH (09:00)
[2023-06-12] MEDS ORDERED: ATORVASTATIN 40 MG TAB PO SCH (09:00)
[2023-06-12] MEDS: CIPROFLOXACIN / D5W 400 MG/200 ML BAG IV SCH (09:58)
[2023-06-12] MEDS: POTASSIUM CHLORIDE CRTAB 20 MEQ TABCR PO SCH ×2 (10:08→12:22)
--- NOTE | 2023-06-12 10:45 | Surgery Progress Note ---
Date of Service June 12, 2023 Assessment & Plan (1) Bowel perforation: Plan: Duodenal perf during EGD/ EUS. Sealed with clip. Imaging shows no residual leak. Overall doing well. Tolerating regular diet. Stable for discharge. Agree with antibiotics for total of 10 days. Admission and Anticipated Discharge Date Admission Date: June 08, 2023 Subjective Feels well. Tolerated regular breakfast. Anxious to go home. Bowels functioning. No abdominal pain or nausea. Physical Exam Constitutional: WD/WN, vitals as above Gastrointestinal (Abdomen): normal bowel sounds, soft, nontender, no hepatosplenomegaly Neurologic: awake; no focal motor deficits Results & Data Vital Signs (Past 12 Hours) Vital Signs Temp Pulse Pulse Resp BP BP Pulse Ox 06/12/23 08:14 36.7 C 50 L 19 145/68 H 99 06/12/23 03:51 36.5 C 55 L 18 134/66 98 06/11/23 22:56 37.2 C 46 L 16 132/61 97 06/11/23 23:54 63 O2 Del Method 06/12/23 08:14 Room Air 06/12/23 03:51 Room Air 06/11/23 22:56 Room Air 06/11/23 23:54 Laboratory Results 06/12/23 06/12/23 06/12/23 Range/Units 08:11 04:39 04:39 WBC 8.32 (4.8-10.8) K/ul RBC 4.01 L (4.70-6.10) M/uL Hgb 11.9 L (14.0-18.0) g/dl Hct 34.2 L (42.0-52.0) % MCV 85.3 (80.0-100.0) fL MCH 29.7 (25.0-34.0) pg MCHC 34.8 (32.0-36.0) g/dL RDW Std Deviation 38.6 (36.4-46.3) fL RDW Coeff of Neida 12.5 (11.5-14.5) % Plt Count 231 (130-400) K/uL MPV 9.2 L (9.4-12.4) fL Sodium (136-145) mmol/L Potassium (3.5-5.1) mmol/L Chloride (98-107) mmol/L Carbon Dioxide (21-32) mmol/L Anion Gap (3-11) BUN (6-23) mg/dl Creatinine (0.6-1.4) mg/dl Est Cr Clr Drug Dosing ml/min Est GFR ( Amer) ml/min Est GFR (Non-Af Amer) ml/min BUN/Creatinine Ratio (10-20) Glucose (70-99(Fasting)) mg/dl POC Glucose 92 (70-99) mg/dl Calcium (8.6-10.3) mg/dl Phosphorus (2.5-4.9) mg/dl TSH (0.300-4.500) uIu/ml Free T4 (0.61-1.60) ng/dl Hepatitis C Ab (EIA) Pending 06/12/23 06/11/23 06/11/23 Range/Units 04:39 22:56 21:14 WBC (4.8-10.8) K/ul RBC (4.70-6.10) M/uL Hgb (14.0-18.0) g/dl Hct (42.0-52.0) % MCV (80.0-100.0) fL MCH (25.0-34.0) pg MCHC (32.0-36.0) g/dL RDW Std Deviation (36.4-46.3) fL RDW Coeff of Neida (11.5-14.5) % Plt Count (130-400) K/uL MPV (9.4-12.4) fL Sodium 144 (136-145) mmol/L Potassium 3.2 L (3.5-5.1) mmol/L Chloride 114 H (98-107) mmol/L Carbon Dioxide 21 (21-32) mmol/L Anion Gap 9 (3-11) BUN 13 (6-23) mg/dl Creatinine 0.57 L (0.6-1.4) mg/dl Est Cr Clr Drug Dosing 125.8 ml/min Est GFR ( Amer) 123.2 ml/min Est GFR (Non-Af Amer) 106.3 ml/min BUN/Creatinine Ratio 22.8 H (10-20) Glucose 116 H (70-99(Fasting)) mg/dl POC Glucose 132 H 75 (70-99) mg/dl Calcium 7.9 L (8.6-10.3) mg/dl Phosphorus 3.4 D (2.5-4.9) mg/dl TSH (0.300-4.500) uIu/ml Free T4 (0.61-1.60) ng/dl Hepatitis C Ab (EIA) 06/11/23 06/11/23 06/11/23 Range/Units 20:50 20:47 16:58 WBC (4.8-10.8) K/ul RBC (4.70-6.10) M/uL Hgb (14.0-18.0) g/dl Hct (42.0-52.0) % MCV (80.0-100.0) fL MCH (25.0-34.0) pg MCHC (32.0-36.0) g/dL RDW Std Deviation (36.4-46.3) fL RDW Coeff of Neida (11.5-14.5) % Plt Count (130-400) K/uL MPV (9.4-12.4) fL Sodium (136-145) mmol/L Potassium (3.5-5.1) mmol/L Chloride (98-107) mmol/L Carbon Dioxide (21-32) mmol/L Anion Gap (3-11) BUN (6-23) mg/dl Creatinine (0.6-1.4) mg/dl Est Cr Clr Drug Dosing ml/min Est GFR ( Amer) ml/min Est GFR (Non-Af Amer) ml/min BUN/Creatinine Ratio (10-20) Glucose (70-99(Fasting)) mg/dl POC Glucose 68 L* 65 L* 89 (70-99) mg/dl Calcium (8.6-10.3) mg/dl Phosphorus (2.5-4.9) mg/dl TSH (0.300-4.500) uIu/ml Free T4 (0.61-1.60) ng/dl Hepatitis C Ab (EIA) 06/11/23 06/11/23 06/11/23 Range/Units 12:39 12:29 12:27 WBC (4.8-10.8) K/ul RBC (4.70-6.10) M/uL Hgb (14.0-18.0) g/dl Hct (42.0-52.0) % MCV (80.0-100.0) fL MCH (25.0-34.0) pg MCHC (32.0-36.0) g/dL RDW Std Deviation (36.4-46.3) fL RDW Coeff of Neida (11.5-14.5) % Plt Count (130-400) K/uL MPV (9.4-12.4) fL Sodium (136-145) mmol/L Potassium (3.5-5.1) mmol/L Chloride (98-107) mmol/L Carbon Dioxide (21-32) mmol/L Anion Gap (3-11) BUN (6-23) mg/dl Creatinine (0.6-1.4) mg/dl Est Cr Clr Drug Dosing ml/min Est GFR ( Amer) ml/min Est GFR (Non-Af Amer) ml/min BUN/Creatinine Ratio (10-20) Glucose (70-99(Fasting)) mg/dl POC Glucose 83 82 38 L* (70-99) mg/dl Calcium (8.6-10.3) mg/dl Phosphorus (2.5-4.9) mg/dl TSH (0.300-4.500) uIu/ml Free T4 (0.61-1.60) ng/dl Hepatitis C Ab (EIA) 06/11/23 Range/Units 04:25 WBC (4.8-10.8) K/ul RBC (4.70-6.10) M/uL Hgb (14.0-18.0) g/dl Hct (42.0-52.0) % MCV (80.0-100.0) fL MCH (25.0-34.0) pg MCHC (32.0-36.0) g/dL RDW Std Deviation (36.4-46.3) fL RDW Coeff of Neida (11.5-14.5) % Plt Count (130-400) K/uL MPV (9.4-12.4) fL Sodium (136-145) mmol/L Potassium (3.5-5.1) mmol/L Chloride (98-107) mmol/L Carbon Dioxide (21-32) mmol/L Anion Gap (3-11) BUN (6-23) mg/dl Creatinine (0.6-1.4) mg/dl Est Cr Clr Drug Dosing ml/min Est GFR ( Amer) ml/min Est GFR (Non-Af Amer) ml/min BUN/Creatinine Ratio (10-20) Glucose (70-99(Fasting)) mg/dl POC Glucose (70-99) mg/dl Calcium (8.6-10.3) mg/dl Phosphorus (2.5-4.9) mg/dl TSH 0.197 L (0.300-4.500) uIu/ml Free T4 1.00 (0.61-1.60) ng/dl Hepatitis C Ab (EIA)
[2023-06-12] MEDS ORDERED: oxyCODONE/ACETAMINOPHEN 10-325 TAB PO PRN (11:47)
--- NOTE | 2023-06-12 11:59 | Discharge Summary ---
Date of Service June 12, 2023 Admission HPI Per Admitting Provider This is a 67 yr old M who has significant PMH of HTN, HLD, hx of TIA, Pituitary Macroadenoma s/p resection on chronic steroid therapy and resultant central hypothyroidism, hypogonadotropic hypogonadism, PreDM, raynauds, GERD, BPH, Diverticulosis, Chronic Pain syndrome, Post Laminectomy syndrome, Seasonal allergies, essential tremor, anxiety who presents at referral of GI 2/2 perforated Duodenum. He has been having stomach pain approx 1 year ago. He was dx with diverticulosis and placed on Miralax and Metamucil which solved the problem for a while; however sx came back. He had a CT scan as OP that showed bile duct dilation which prompted endoscopy today. Patient underwent EUS by Dr. Plascencia today for further evaluation of unusually dilated bile duct. During the procedure Dr. Plascencia noted a duodenal perforation and was able to immediately treat with endoscopic clipping. He received prophylactic ciprofloxacin, 1 L of IV fluid and fentanyl prior to arrival. He was already seen and evaluated by general surgery in ED and is recommended patient remain strict n.p.o., NG tube placement, IV PPI twice daily and IV antibiotics. His abdominal pain is improved from prior to arrival. He does occasionally have nausea and vomiting. He denies any hematemesis or melena. He denies f/c/s, dizziness, lightheaded, chest pain, sob, URI sx, diarrhea, dysuria, increased urg, freq with urination or hematuria. He takes chronic narcotics and does not experience constipation with routine miralax and Metamucil. He last BM was yesterday and normal from him. This morning he took his propranolol, caffeine, PPI, levothyroxine, morphine and Percocet. Pts brother is at bedside and discussed. Admission Exam Per Admitting Provider Vitals were within normal limits, notable for an asymptomatic bradycardia Principal Diagnosis Abdominal pain Duodenal perforation status post endoscopic clipping Likely perforation peritonitis Discharge Exam GENERAL: Alert and oriented x3. NAD, on RA. HEENT: No pallor, no icterus. Pupils equal, round and reactive to light. Oral mucosa moist. NECK: No JVD, no neck masses. HEART: S1 and S2 heard. Regular rate and rhythm. No murmur, no gallop. RESPIRATORY SYSTEM: Normal AP diameter. No accessory muscle use. No wheezing, no crackles. ABDOMEN: Soft, bowel sounds present, mild epigastric tender w/ minimal rebound tender --> resolved, no distention. CENTRAL NERVOUS SYSTEM: No facial droop. Speech is clear. Obeys simple commands. Moves extremities. EXTREMITIES: No edema, no erythema seen. Discharge Data Allergies Allergy/AdvReac Type Severity Reaction Status Date / Time No Known Allergies Allergy U Verified 05/16/23 13:06 Consultations 06/08/23 10:27 ED Decision to Admit Stat 06/08/23 10:42 Consult Gastroenterology Routine Consult General Surgery Routine 06/09/23 09:40 Consult Infectious Diseases Routine Ordered Studies 06/08/23 10:08 CT abd pelvis IV con only Stat Hospital Course (1) Abdominal pain: (2) Duodenal perforation: (3) Status post transsphenoidal pituitary resection: (4) Panhypopituitarism: (5) History of TIA (transient ischemic attack): (6) Chronic narcotic dependence: Plan 67 yr old M who has significant PMH of HTN, HLD, hx of TIA, Pituitary Macroadenoma s/p resection on chronic steroid therapy and resultant central hypothyroidism, hypogonadotropic hypogonadism, PreDM (A1c 5.9), raynauds, GERD, BPH, Diverticulosis, Chronic Pain syndrome, Post Laminectomy syndrome, Seasonal allergies, essential tremor, anxiety who presents at referral of GI 2/2 perforated Duodenum. He was managed for the following: Abdominal pain Duodenal perforation status post endoscopic clipping pt underwent EUS in outpt setting 2/2 dilated bile duct and discovered was a perf duodenum which was treated immediately with endovascular clipping and no evidence of bleeding. ---CT abd pelvis:1. Wall thickening involving the second portion of the duodenum with probable small intramural hematoma is noted in conjunction with a metallic occlusion/clamp device. Findings are compatible with acute duodenal perforation with repair.. Moderate pneumoperitoneum with small amount of abdominal pelvic ascites.. Distal tip of the enteric tube terminates within the gastric body.. Right nephrolithiasis.. Mild gallbladder distention.. Moderate fecal retention of the right hemicolon. conservative management for now, no peritonitic signs, VSS, expected findings in setting of EGD findings with perf duodenum s/p clipping Upper GI series with no leak. Patient tolerating regular diet with no abdominal pain. IV antibiotics with Cipro, Flagyl and fluconazole. ID consult -agrees w/ above antimicrobial therapy. General surgery on board, appreciate recommendation GI evaluated, appreciate recommendation To po antimicrobial therapy upon discharge to complete the course. History of pituitary macroadenoma status postresection -- Resultant panhypopituitarism, central hypothyroidism hypogonadotropic hypogonadism We will give stress dose steroid 100 mg hydrocortisone x1 now and then 50 mg every 6 -- today every 8 hours -- today every 12 hours --> to p.o. hydrocortisone upon discharge from tomorrow. also on oral cabergoline twice weekly Per pt's manager basketball is Dr. Debbi Johns: upon completion of rapid IV taper, transition to oral hydrocortisone 15mg am/ 5mg pm. Prednisone is to be discontinued as it is best to be avoided given perforation. Hx of TIA: on plavix and statin, continue. HTN: on amlodipine, lisinopril , continue. Chronic pain syndrome Post Laminectomy syndrome pt is on chronic Morphine Sulfate ER 30mg bid, percocet 10-325 q4h prn, gabapentin, cymbalta, elavil. resumed psychiatry meds. Continue home pain medications. Pre DM: on metformin, last a1c 5.9 in December, A1c of 5. 9 this admission. will monitor accuchecks for now, will hold on coverage unless consistently elevated Essential Tremor: on propranolol QID. will convert to IV lopressor 2.5mg q6h. ---> dc iv, resume home propranolol DVT ppx: scds. FULL CODE PCP: SUPRIYA Dispo: admit to PCU. Patient being discharged to home with following instruction at the point of discharge: Follow-up with your primary care physician within a week time and likely you will need labs CBC/CMP/magnesium/phosphorus. Your potassium level was on the lower side while in hospital, you are being discharged on low-dose potassium supplement for 7 days, you will need repeat labs within a week time at your PCP office and further evaluation for any potassium supplement need. You were evaluated for duodenal perforation and ensuing peritonitis. You are being discharged on antimicrobial therapy to complete the course. Take them as prescribed. Probiotics has been added. Follow-up with your GI doctor in 2 to 4 weeks time upon discharge. Continue with your pantoprazole twice a day at discharge. Your prednisone will be discontinued upon discharge. You will be started on oral hydrocortisone at 15 mg in the morning and 5 mg in the evening. Follow-up with your manager basketball in a month time upon discharge. Take your medications as prescribed. Please make sure that you are able to get your medications today by calling your pharmacy before you leave the hospital so that your treatment continuity is not broken. Home Health Attestation I certify that this patient is under my care and that I, or a physicians water quality assistant working with me, had a face to-face encounter that meets the home health [id number] encounter requirements with this patient. The encounter with the patient was in whole, or in part, for the following me dical condition, which is the primary reason for home health care (list medical condition): I certify that, based on my findings, the following services are medically neces monie home health services: My clinical findings support the need for the above services because: Further, I certify that my clinical findings support that this patient is homebound (i.e. absences from home require considerable and taxing effort and are for medical reasons or nondenominational services or infrequently or of short duration when for other reasons) because: Certification for Home Health Services: Based on the above findings, I certify that this patient is confined to the home and needs intermittent correction care, physical therapy and/or speech therapy or continues to need occupational therapy. The patient is under my care, and I have initiated the establishment of the plan of care. This patient will be followed by a physician who will periodically review the plan of care. Total Time Total Time Spent Total Time Spent (In Minutes): 45 Discharge Plan Discharge Items Patient Disposition: Home - Self-Care Reason For Visit: PERFORATED DUODENUM Discharge Diagnosis: Abdominal pain Duodenal perforation status post endoscopic clipping Likely perforation peritonitis Condition on Discharge: Fair Activity: Resume your previous activity Non-emergency contact: Primary Care Provider Call non-emergency contact if: you have any medication questions, your symptoms worsen, your pain is not controlled, your pain is worsening and your temperature is above 101 Follow-up/Referrals: Johnathan Rain MD [Primary Care Provider] - Diet: Low Fiber Diet Texture: Dental soft (bite-sized) Addtl Attending Provider Instructions: Follow-up with your primary care physician within a week time and likely you will need labs CBC/CMP/magnesium/phosphorus. Your potassium level was on the lower side while in hospital, you are being discharged on low-dose potassium supplement for 7 days, you will need repeat labs within a week time at your PCP office and further evaluation for any potassium supplement need. You were evaluated for duodenal perforation and ensuing peritonitis. You are being discharged on antimicrobial therapy to complete the course. Take them as prescribed. Probiotics has been added. Follow-up with your GI doctor in 2 to 4 weeks time upon discharge. Continue with your pantoprazole twice a day at discharge. Your prednisone will be discontinued upon discharge. You will be started on oral hydrocortisone at 15 mg in the morning and 5 mg in the evening. Follow-up with your manager basketball in a month time upon discharge. Take your medications as prescribed. Please make sure that you are able to get your medications today by calling your pharmacy before you leave the hospital so that your treatment continuity is not broken. Pending Studies at Discharge: No Stand-Alone Forms: My [facility] [employer], Smoking Cessation Medications and DC Order Prescriptions: New Phospha 250 Neutral 250 mg Tablet 2 tab PO QID 3 Days Qty: 24 0RF Advanced Probiotic 625 mg (10 billion cell) Capsule 2 cap PO DAILY 14 Days Qty: 28 0RF hydrocortisone 10 mg tablet 10 mg PO UD Qty: 60 0RF Rx Instructions: Take 1.5 tabs in the morning and 0.5 tab in the evening. metronidazole 500 mg tablet 500 mg PO Q8H 7 Days Qty: 21 0RF ciprofloxacin HCl 500 mg tablet 500 mg PO BID 7 Days Qty: 14 0RF fluconazole 200 mg tablet 400 mg PO DAILY 7 Days Qty: 14 0RF potassium chloride 20 mEq tablet extended release 20 meq PO DAILY 7 Days Qty: 7 0RF Continued polyethylene glycol 3350 [Miralax] 17 gram/dose powder 17 g PO DAILY Citrucel (sucrose) Powder 1 tbsp PO DAILY gabapentin 400 mg capsule 400 mg PO TID clindamycin phosphate 1 % solution 1 applic topical DAILY caffeine 200 mg tablet 200 mg PO BID PRN (Reason: Headache) dicyclomine 10 mg capsule See Rx Instructions .ROUTE .COMPLEX Qty: 270 1RF Dose Instruction: TAKE 1 CAPSULE BY MOUTH THREE TIMES A DAY Rx Instructions: TAKE 1 CAPSULE BY MOUTH THREE TIMES A DAY propranolol 10 mg tablet 10 mg PO QID amitriptyline 75 mg tablet 37.5 mg PO HS morphine 30 mg tablet extended release 30 mg PO BID oxycodone-acetaminophen [Percocet] 10-325 mg Tablet 1 tab PO Q4 PRN (Reason: Pain) promethazine 25 mg Tablet 25 mg PO Q6H PRN (Reason: Nausea) atorvastatin 80 mg tablet 80 mg PO QAM clopidogrel 75 mg tablet 75 mg PO QAM tizanidine 4 mg tablet 8 mg PO TID PRN (Reason: Pain) metformin 500 mg Tablet 500 mg PO QAM azelastine 137 mcg (0.1 %) aerosol,spray 2 spray intranasal BID PRN (Reason: Nasal Congestion) topiramate 25 mg tablet 75 mg PO HS lisinopril 10 mg tablet 10 mg PO QAM duloxetine 60 mg capsule,delayed release(DR/EC) 60 mg PO QAM clobetasol 0.05 % Ointment 1 applic TOPICAL BID PRN (Reason: Rash) amlodipine [Norvasc] 5 mg tablet 5 mg PO QAM bupropion HCl 150 mg Tablet Extended Release 24 Hr 150 mg PO QAM levothyroxine 125 mcg tablet 125 mcg PO DAILY@0630 cabergoline 0.5 mg tablet 0.5 mg PO TUFR acetaminophen [Tylenol] 325 mg Tablet 650 mg PO BID pantoprazole 40 mg tablet,delayed release (DR/EC) 40 mg PO BID Qty: 60 0RF Changed sucralfate 1 gram tablet 1 g PO QID Qty: 40 0RF Discontinued prednisone 5 mg tablet 5 mg PO QAM Discharge Orders: Discharge Order (Routine); Ordered 06/12/23 Ordered By: Kayleen Weir Admission Data Admit Date/Time: 06/08/23 10:42 Attending Provider: Kayleen Weir Admit Provider: Chanel Guerrero Primary Care Provider: Johnathan Rain Other Providers: Chirag Small ; Perlita Plunkett ; Chanel Guerrero ; Ryan Dodge ; Pedro Mattson ; Tristan Reddy I. ; Tony Bal II ; Ann Davies ; Rich Newman ; Rod Guadarrama ; Risa Fermin
[2023-06-12] MEDS ORDERED: MoRPHine SULFATE CR 15 MG TABCR PO SCH ×2 (14:17→21:00)
[2023-06-12] MEDS ORDERED: HYDROCORTISONE SOD 50 MG in SYRINGE 0 ML IV SCH (22:00)
[2023-06-13] MEDS ORDERED: CLOPIDOGREL BISULFATE 75 MG TAB PO SCH (09:00)
[2023-06-14] MEDS ORDERED: CABERGOLINE 0.5 MG PO SCH (16:46)
== END 2023-06-12 15:10 | disposition home or self-care (01) | DRG 919 ==
LOC: ED 09:40 → SUATTDRO 10:42 → EDINP 10:42 → 4W 16:05

== ENCOUNTER 2024-05-08 09:09 | Observation (INO) ==
--- NOTE | 2024-05-08 09:19 | Emergency Department Note ---
Impression & Plan Brain TIA, GREYSON (acute kidney injury), Acute dehydration ED Provider Note NAME: SURENDRA CHEN AGE: 68 SEX: M : 1955 ARRIVES VIA: Walk-In INFORMANT: Patient, ED PROVIDER(S): Darrion Damon MD CHIEF COMPLAINT: Ptosis, gait imbalance MEDICAL DECISION MAKING: Patient presents due to concern for TIA related symptoms with reported ptosis and gait balance. IV was established and blood work was obtained. Reviewed the patient's medication list shows that the patient is on high-dose atorvastatin 80 mg as well as Plavix 75 daily. Patient did not take his Plavix this morning. Patient did have a CT of the head and angiography of the head and neck ordered. Blood work shows a normal white count mild anemia hemoglobin of 13.5 with a normal platelet count. The patient's kidney function with a creat of 1.96 which is new from comparison from May of last year. This may represent GREYSON. The patient was noted to be hypotensive here and did receive an IV fluids initially. There was concern that maybe the patient is taking too much blood pressure medication or that he has adjusted to where he does not require this is much and may be contributory. CT of the head obtained while CT angiography is of the head and neck held at this time given the patient's GREYSON. The patient was ordered additional liter of IV fluids. CT that is negative. Patient currently has a low NIH of maybe a 1 with intermittent slurred speech. Do not believe the patient is a TNK candidate at this time due to low NIH and quickly resolving symptoms. I did inform the patient the patient's brother at bedside with the plan and findings. They are comfortable plan of care. I did Si[place] the on-call hospital service Yue Reddy PA-C and Dr. Juan. MRI brain was ordered and pending at the time of admission. Any further vascular studies deferred to inpatient team. Discussion w/ other healthcare providers: Wilber Reddy PA-C and Dr. Juan Prior /Outside records reviewed: None Differential diagnosis: Infection, dehydration, metabolic abnormality, hypo/hyperglycemia, electrolyte imbalance, anemia, UTI, pneumonia, thyroid dysfunction among others were considered. Diagnostics, as interpreted by me: ECG: Sinus bradycardia, rate of 55, normal intervals, normal axis T wave version lead III no ST elevations, T wave version in V2. Cardiac monitoring: An order was placed for continuous cardiac monitoring. The monitor shows a rate of 60 with sinus rhythm. Patient was placed on pulse oximetry Medical decision rules: None Imaging studies: I informally interpreted the patient's CT head does not show obvious ICH with formal report to follow. HPI: Patient presents due to concern for strokelike symptoms that began this morning. The patient states that he woke up at 730 noticed that he could not open his left eye and had some gait and balance as he struggled to walk appropriately. Patient states that this has happened to similar times before when he was diagnosed with a mini stroke. The patient does not believe that he had a formal prior MRI of the brain but has had MRIs of his neck due to concern for her chronic neck pain which has not changed. Patient denies any falls or trauma. The patient did call his brother who presented and they presented here. The patient does take Plavix and atorvastatin per review of his medication list but did not take this this morning. The patient does take chronic morphine as well as a caffeine pill and one of his blood pressure medications unsure as to whether or not it was lisinopril or amlodipine. Patient reports that he has taken the morphine for many years and typically does not cause any slurred speech. Patient denies any chest pains or shortness of breath no nausea vomiting or diarrhea no upper respiratory infectious symptoms no cough or fever. Patient states that is lasted anywhere from half hour to an hour as they seem to resolve sometime tween 730 in the time that his brother arrived which was between 8 and 830. When asked if his speech is normal he believes that it is but his brother thinks that maybe he still has some slurred speech. No reported alcohol use. PAST MEDICAL HISTORY: See Below PAST SURGICAL HISTORY: See Below SOCIAL HISTORY: See Below HOME MEDICATIONS: See Below ALLERGIES: See Below VITALS: See Below PHYSICAL EXAMINATION: GENERAL: NAD, non-toxic. EYE EXAM: Normal conjunctiva. PERRL, no anisocoria and EOM's grossly intact w/o pain. OROPHARYNX: Moist mucus membranes, grossly normal dentition. NECK: Trachea midline, no stridor. Supple, no nuchal rigidity, no adenopathy, non-tender. No signs of meningismus. FROM of the neck with good chin to chest and neck extension. LUNGS: Clear to auscultation. Normal chest wall mechanics. HEART: NSR, no MRG. ABDOMEN: Abdomen soft, non-tender, no masses, no rebound or guarding. BACK: No CVA TTP. SKIN: No rashes and no bruising. UPPER EXTREMITIES: Upper extremities are grossly normal. LOWER EXTREMITIES: Grossly normal, no edema. NEURO EXAM: A&O x3, cranial nerves II-XII grossly intact, intermittent subtle slurred speech, moves all 4 extremities. Good [id number], no drift and no sensory deficits. Good [id number], good auds-wc-pyoe and able to sit upright without any truncal instability Past Med/Surg History Problem List (Updated 05/08/24 @ 14:56 by Darrion Damon MD) Acute dehydration (Acute) GREYSON (acute kidney injury) (Acute) Brain TIA (Acute) Stroke-like symptoms Acute upper abdominal pain (Acute) S/P endoscopy (Acute) Chronic narcotic dependence Duodenal perforation Therapeutic opioid induced constipation Lactose intolerance Abdominal pain, epigastric Pituitary adenoma (Chronic) "gonadotropin adenoma" Chronic neck pain (Chronic) Cervical post-laminectomy syndrome (Chronic) BPH (benign prostatic hyperplasia) (Chronic) Panhypopituitarism (Chronic) Status post transsphenoidal pituitary resection (Chronic) "04/11/17 at [facility] [place]" S/P cervical spinal fusion (Chronic) "1999" S/P shoulder surgery (Chronic) H/O elbow surgery (Chronic) S/P UPPP (uvulopalatopharyngoplasty) (Chronic) S/P tonsillectomy and adenoidectomy (Chronic) S/P nasal septoplasty (Chronic) S/P Achilles tendon repair (Chronic) HLD (hyperlipidemia) (Chronic) GERD (gastroesophageal reflux disease) (Chronic) Pulmonary nodules (Acute) Chronic folliculitis (Chronic) Chronic constipation (Chronic) Hypertension CKD (chronic kidney disease), stage IV Community acquired bacterial pneumonia Gastric polyps Chronic anemia S/P coronary artery stent placement COPD, moderate Abdominal pain (Acute) Enteritis (Acute) Dysphagia Abdominal pain, acute, epigastric (Acute) Anemia (Acute) History of TIA (transient ischemic attack) (Chronic) X2-->"05/2014" & 06/2017. TAKING PLAVIX. 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 Chronic neck pain BPH (benign prostatic hyperplasia) Peptic ulcer disease H/O GERD (gastroesophageal reflux disease) Hypothyroidism Anxiety Hyperlipidemia Hypertension Surgical History Family history of reaction to anesthesia FATHER>ASPIRATED DURING COLONOSCOPY History of colonoscopy History of esophagogastroduodenoscopy (EGD) Nausea and vomiting after administration of anesthetic agent S/P UPPP (uvulopalatopharyngoplasty) H/O Achilles tendon repair x3--RIGHT FOOT H/O elbow surgery RIGHT ELBOW BONE SPUR REMOVAL H/O shoulder surgery LEFT SHOULDER BONE SPUR REMOVAL H/O: pituitary tumor BENIGN TUMOR REMOVED Fusion of spine CERVICAL AREA. UNSURE OF THE LEVELS. LIMITED ROM ALL DIRECTIONS-EASILY CAUSES NECK SPASMS. HAS BEEN INTUBATED SINCE WITHOUT ISSUES. History of nasal septoplasty S/P LASIK surgery of both eyes History of tonsillectomy Family History Uncle Family history of diabetes mellitus Other Hypertension No family history of adverse response to anesthesia Social History Smoking Status: Never smoker Second Hand Exposure: No; Do You Dip or Chew Tobacco: No; Hx Alcohol Use: No Hx Substance Use: No Preferred Language: Polish Communication Ability: Effective Visual Impairment: No Limitations Hearing Ability: Normal [employer] Required: No Beliefs That Will Affect Care: None marital status: Single Current Living Situation: Alone Current Living Situation Comment: At home alone Feels Safe at Home: Yes Assistive Devices: None Allergies Allergies Allergy/AdvReac Type Severity Reaction Status Date / Time No Known Allergies Allergy U Verified 04/19/24 23:10 Home Meds Home Medications Medication Instructions Recorded Confirmed amitriptyline 75 mg tablet 37.5 mg PO HS 08/16/18 05/08/24 morphine 30 mg tablet,extended 30 mg PO BID 08/16/18 05/08/24 release oxycodone-acetaminophen 10 mg-325 1 tab PO Q4 PRN Pain 08/16/18 05/08/24 mg tablet (Percocet) promethazine 25 mg tablet 25 mg PO Q6H PRN Nausea 08/16/18 05/08/24 atorvastatin 80 mg tablet 80 mg PO QAM 09/12/18 05/08/24 clopidogrel 75 mg tablet 75 mg PO QAM 09/12/18 05/08/24 tizanidine 4 mg tablet 8 mg PO TID PRN Pain 09/12/18 05/08/24 gabapentin 400 mg capsule 400 mg PO TID 09/19/18 05/08/24 metformin 500 mg tablet 500 mg PO QAM 12/25/18 05/08/24 azelastine 137 mcg (0.1 %) nasal 2 spray intranasal BID PRN Nasal 03/31/19 05/08/24 spray Congestion lisinopril 10 mg tablet 10 mg PO QAM 04/06/19 05/08/24 topiramate 25 mg tablet 75 mg PO HS 04/06/19 05/08/24 propranolol 10 mg tablet 10 mg PO QID 09/24/19 05/08/24 amlodipine 5 mg tablet (Norvasc) 5 mg PO QAM 03/08/20 05/08/24 bupropion HCl 150 mg 24 hr tablet, 150 mg PO QAM 09/15/21 05/08/24 extended release caffeine 200 mg tablet 200 mg PO DAILY Headache 10/22/21 05/08/24 polyethylene glycol 3350 17 17 g PO DAILY 02/15/23 05/08/24 gram/dose oral powder (Miralax) cabergoline 0.5 mg tablet 0.25 mg PO 2XWK 06/08/23 05/08/24 levothyroxine 125 mcg tablet 125 mcg PO DAILY@0630 06/08/23 05/08/24 acetaminophen 500 mg tablet 1,000 mg PO HS 04/19/24 05/08/24 (Tylenol Extra Strength) dicyclomine 10 mg capsule 10 mg PO BID PRN ABD CRAMPING 04/19/24 05/08/24 fluticasone propionate 50 2 spray intranasal BID 04/19/24 05/08/24 mcg/actuation nasal spray,suspension hydrocortisone 10 mg tablet 10 mg PO BID 04/19/24 05/08/24 ipratropium bromide 21 mcg (0.03 2 spray intranasal BID PRN 04/19/24 05/08/24 %) nasal spray Congestion psyllium husk 3.4 gram/5.4 gram 1 tbsp PO DAILY 04/19/24 05/08/24 oral powder (Metamucil) simethicone 62.5 mg oral strips 1 strip PO DIRECTED PRN 04/19/24 05/08/24 (Gas-X) GAS/BLOATING triamcinolone acetonide 0.1 % 1 applic topical BID PRN Skin 04/19/24 05/08/24 topical cream Irritation ketoconazole 2 % shampoo 1 applic topical DIRECTED 05/08/24 05/08/24 Results & Data (ED) Vital Signs Vital Signs - 24 hr 05/08/24 09:12 05/08/24 09:48 05/08/24 11:09 Temperature 36.0 C L Temperature Source Temporal Artery Scan Pulse Rate 61 59 L Pulse Rate [Apical] 55 L Respiratory Rate 20 12 Blood Pressure 79/43 L Blood Pressure [Right Arm] 104/54 L Blood Pressure Mean 55 Blood Pressure Mean [Right Arm] 70 Pulse Oximetry 100 98 Oxygen Delivery Method Room Air Sepsis Recent Fever Within 48 Hours No Sepsis New/Unexplained Change in Mental Status N/A Sepsis Action Taken by Nursing No Action Required Home Medications Current Medication List: was personally reviewed by me Laboratory Data Attestation: I reviewed the patient's lab results. 05/08/24 09:25 05/08/24 09:25 Lab Results 05/08/24 05/08/24 Range/Units 09:22 09:25 WBC 9.82 (4.8-10.8) K/ul RBC 4.64 L (4.70-6.10) M/uL Hgb 13.5 L (14.0-18.0) g/dl Hct 41.3 L (42.0-52.0) % MCV 89.0 (80.0-100.0) fL MCH 29.1 (25.0-34.0) pg MCHC 32.7 (32.0-36.0) g/dL RDW Std Deviation 39.3 (36.4-46.3) fL RDW Coeff of Neida 12.0 (11.5-14.5) % Plt Count 325 (130-400) K/uL MPV 9.0 L (9.4-12.4) fL Immature Gran % (Auto) 0.3 % Neut % (Auto) 62.7 % Lymph % (Auto) 25.5 % [place] % (Auto) 8.4 % Eos % (Auto) 2.3 % Baso % (Auto) 0.8 % Neut # (Auto) 6.16 (1.40-6.50) K/uL Lymph # (Auto) 2.50 (1.20-3.40) K/uL [place] # (Auto) 0.82 H (0.11-0.59) K/uL Eos # (Auto) 0.23 (0.00-0.50) K/uL Baso # (Auto) 0.08 (0.00-0.20) K/uL Immature Gran # (Auto) 0.03 (0.01-0.20) K/uL PT 10.5 (9.0-12.0) Seconds INR 1.0 (0.9-1.1) APTT 27 (21-31) Seconds PTT Ratio 1.0 Sodium 142 (136-145) mmol/L Potassium 4.1 (3.5-5.1) mmol/L Chloride 109 H (98-107) mmol/L Carbon Dioxide 25 (21-32) mmol/L Anion Gap 8 (3-11) BUN 21 (6-23) mg/dl Creatinine 1.96 H (0.6-1.4) mg/dl Est Cr Clr Drug Dosing 36.1 ml/min Est GFR ( Amer) 39.6 ml/min Est GFR (Non-Af Amer) 34.1 ml/min BUN/Creatinine Ratio 10.7 (10-20) Glucose 111 H (70-99(Fasting)) mg/dl POC Glucose 116 H (70-99) mg/dl Calcium 9.5 (8.6-10.3) mg/dl Magnesium 2.2 (1.7-2.4) mg/dl Total Bilirubin 0.4 (0.2-1.0) mg/dl AST 16 (13-39) U/L ALT 9 (7-52) U/L Alkaline Phosphatase 110 H (34-104) U/L Troponin I High Sens 3.5 (0-20) pg/ml Total Protein 6.2 (6.0-8.3) gm/dl Albumin 4.0 (3.4-5.0) gm/dl Globulin 2.2 L (2.5-4.0) gm/dl Albumin/Globulin Ratio 1.8 (0.9-2) Administered Medications Sodium Chloride (Nss) 1,000 mls @ 100 mls/hr IV .Q10H KATIE Stop: 05/08/24 23:14 Last Admin: 05/08/24 14:26 Dose: 100 mls/hr Documented By: MAGGY Discontinued Medications Sodium Chloride (Nss) 1,000 mls @ 999 mls/hr IV .Q1H1M ONE Stop: 05/08/24 10:36 Last Infusion: 05/08/24 10:43 Dose: Infused Documented By: Admin: 05/08/24 09:50 Dose: 999 mls/hr Documented By: THAO Sodium Chloride (Nss) 1,000 mls @ 999 mls/hr IV .Q1H1M ONE Stop: 05/08/24 11:38 Last Infusion: 05/08/24 13:16 Dose: Infused Documented By: Admin: 05/08/24 11:45 Dose: 999 mls/hr Documented By: THAO Oxycodone/Acetaminophen (Oxycodone/Acetaminophen 5mg/325mg Tab) 1 tab PO NOW STA Stop: 05/08/24 12:20 Last Admin: 05/08/24 12:30 Dose: 1 tab Documented By: THAO Imaging Data Radiologist's Impression: Head CT 05/08/24 09:36 CT OF THE HEAD WITHOUT CONTRAST CLINICAL HISTORY: neuro deficit, acute stroke suspected COMPARISON STUDY: MRI of the brain June 26, 2018. Head CT March 31, 2019. CT DOSE: 547.75 mGy.cm TECHNIQUE: Helical axial images of the head were obtained without IV contrast. Automated exposure control was utilized for the study. A dose lowering technique was utilized adhering to the principles of ALARA. FINDINGS: No acute intracranial hemorrhage, midline shift or mass effect is present. The ventricular system is unremarkable. The basal cisterns are patent. No extra-axial collections are present. There are no findings to suggest acute dural sinus thrombosis or acute territorial infarct. There are postoperative findings within the sinuses. Left maxillary sinus mucosal thickening is present. There is also mucosal thickening within the ethmoid and right sphenoid sinuses. IMPRESSION: No acute intracranial findings. ACT 112: Negative or not required by law. Electronically signed by: John Woodson M.D. 05/08/2024 11:19 AM Discharge Plan Visit Data Chief Complaint: TIA Symptoms Stated Complaint: LOSS OF BALANCE, EYES PROBLEMS, POSSIBLE STROKE ED Provider: Darrion Damon Discharge Problem: Brain TIA, GREYSON (acute kidney injury), Acute dehydration Patient Disposition: Admitted As Inpatient Discharge Instructions Interventions: ED Discharge Assessment Last Done: 05/08/24 14:00
[2024-05-08] MEDS: SODIUM CHLORIDE 0.9% 1,000 ML IV ONE ×2 (09:50→11:45)
[2024-05-08 10:09] LABS: Basophils # (auto) 0.08 K/uL (0.00-0.20); Basophils % (auto) 0.8 %; Eosinophils # (auto) 0.23 K/uL (0.00-0.50); Eosinophils % (auto) 2.3 %; Hematocrit (blood only) 41.3 % (42.0-52.0); Hemoglobin 13.5 g/dl (14.0-18.0); Immature Granulocytes # (auto) 0.03 K/uL (0.01-0.20); Immature Granulocytes % (auto) 0.3 %; Lymphocytes % (auto) 25.5 %; Mean Corpuscular Hemoglobin 29.1 pg (25.0-34.0); Mean Corpuscular Hgb Conc 32.7 g/dL (32.0-36.0); Monocytes # (auto) 0.82 K/uL (0.11-0.59); Monocytes % (auto) 8.4 %; Neutrophils # (auto) 6.16 K/uL (1.40-6.50); Neutrophils % (auto) 62.7 %; Platelet Count 325 K/uL (130-400); RDW Standard Deviation 39.3 fL (36.4-46.3); Red Blood Count 4.64 M/uL (4.70-6.10); White Blood Count 9.82 K/ul (4.8-10.8)
[2024-05-08 10:28] LABS: Albumin Globulin Ratio 1.8 (0.9-2); BUN Creatinine Ratio 10.7 (10-20); Bilirubin,Total 0.4 mg/dl (0.2-1.0); Calcium 9.5 mg/dl (8.6-10.3); Creatinine Clr Calc Pharmacy 36.1 ml/min; Est GFR (African American) 39.6 ml/min; Est GFR (Non-African American) 34.1 ml/min; Globulin 2.2 gm/dl (2.5-4.0); Magnesium 2.2 mg/dl (1.7-2.4); Potassium 4.1 mmol/L (3.5-5.1); Total Protein 6.2 gm/dl (6.0-8.3)
[2024-05-08 10:34] LABS: Troponin I High Sensitivity 3.5 pg/ml (0-20)
[2024-05-08 10:42] LABS: Partial Thromboplastin Time 27 Seconds (21-31); Prothrombin Time 10.5 Seconds (9.0-12.0)
--- NOTE | 2024-05-08 11:21 | CT Scan Report ---
CT OF THE HEAD WITHOUT CONTRAST CLINICAL HISTORY: neuro deficit, acute stroke suspected COMPARISON STUDY: MRI of the brain June 26, 2018. Head CT March 31, 2019. CT DOSE: 547.75 mGy.cm TECHNIQUE: Helical axial images of the head were obtained without IV contrast. Automated exposure con trol was utilized for the study. A dose lowering technique was utilized adhering to the principles o f ALARA. FINDINGS: No acute intracranial hemorrhage, midline shift or mass effect is present. The ventricular system is unremarkable. The basal cisterns are patent. No extra-axial collections are present. There are no findings to suggest acute dural sinus thrombosis or acute territorial infarct. There are posto perative findings within the sinuses. Left maxillary sinus mucosal thickening is present. There is al so mucosal thickening within the ethmoid and right sphenoid sinuses. IMPRESSION: No acute intracranial findings. ACT 112: Negative or not required by law. Electronically signed by: John Woodson M.D. 05/08/2024 11:19 AM
--- NOTE | 2024-05-08 11:54 | Electrocardiogram Report ---
Test Reason : Blood Pressure : / mmHG Vent. Rate : 055 BPM Atrial Rate : 055 BPM P-R Int : 158 ms QRS Dur : 100 ms QT Int : 450 ms P-R-T Axes : 032 -13 000 degrees QTc Int : 430 ms Sinus bradycardia Poor R wave progression, consider anterior [place] vs. lead placement vs. LVH Otherwise normal ECG When compared with ECG of 11-JUN-2023 06:20, PRWP now present Confirmed by Alfredo Castellanos ([id number]) on 05/08/2024 11:53:44 AM Referred By: Confirmed By:Alfredo Castellanos
[2024-05-08] MEDS: oxyCODONE/ACETAMINOPHEN 5mg/325mg TAB PO STA (12:30)
--- NOTE | 2024-05-08 12:34 | History & Physical Report ---
Date of Service May 08, 2024 Assessment & Plan (1) Stroke-like symptoms: (2) History of TIA (transient ischemic attack): (3) Hypertension: (4) Hyperlipidemia: (5) Anxiety: (6) Hypothyroidism: (7) GERD (gastroesophageal reflux disease): (8) BPH (benign prostatic hyperplasia): (9) Chronic neck pain: (10) Chronic steroid use: (11) Tremor of both hands: (12) Prediabetes: Plan This is a 68yo M with a PMH of history of TIAs, HTN, HLD, Pituitary Macroadenoma s/p resection on chronic steroid therapy and resultant central hypothyroidism, hypogonadotropic hypogonadism, prediabetes, Raynauds, BPH, diverticulosis, chronic Pain syndrome, post Laminectomy syndrome on narcotics, essential tremor and anxiety who presents with stroke like symptoms since this morning. Stroke like symptoms History of TIAs Woke up at 0730 with difficulty opening eyes, clumsy gait - resolved by 9 AM but still with ? mild dysarthric speech CT head without acute intracranial abnormalities CTA head/neck not performed due to GREYSON Brain MRI, echo with bubble study pending Continue plavix, high dose statin Routine neuro consult PT/OT/speech consults per stroke set protocol Question polypharmacy as a contributor to symptoms - if stroke eval negative, consider pain mgmt consult to re-evaluate meds GREYSON on CKD Cr 1.96 today (baseline ~1.1) No new medications Given NSS x 2 L in ED KUB to eval for obstruction Monitor with daily BMP, avoid nephrotoxic agents as able History of pituitary macroadenoma S/p resection with resultant panhypopituitarism, central hypothyroidism hypogonadotropic hypogonadism Given missed AM dose of hydrocortisone BP improved with IV fluids but consider stress dosing if becomes hypotensive again Continue cabergoline twice weekly Follows with plant clerk Dr. Debbi Johns Avoid pred given history of duodenal perf HTN BP low normal since arrival Continue amlodipine tomorrow, hold lisinopril 2/2 GREYSON as above Chronic pain syndrome Post Laminectomy syndrome On chronic Morphine Sulfate ER 30mg bid, Percocet 10-325 q4h prn, gabapentin, amitriptyline, topiramate Consider polypharmacy contributing to symptoms above Prediabetes A1c 5.9 in May 2023 Hold metformin Monitor accuchecks for now, will hold on coverage unless consistently elevated Essential Tremor propranolol QID with hold parameters - presently bradycardic in 40s-50s so will hold for now DVT Ppx: SQ heparin Code status: DNR/DNI per discussion with patient PCP: Briseyda Dispo: Admitted to PCU Patient seen in collaboration with Dr. Juan. Please see addendum. I spent a total of 75 minutes coordinating, documenting, and providing care for this patient excluding time spent in the performance of separately billed services. History of Present Illness Chief Complaint: stroke eval Primary Care Provider: Johnathan Rain MD This is a 68yo M with a PMH of history of TIAs, HTN, HLD, Pituitary Macroadenoma s/p resection on chronic steroid therapy and resultant central hypothyroidism, hypogonadotropic hypogonadism, prediabetes, Raynauds, BPH, diverticulosis, chronic Pain syndrome, post Laminectomy syndrome on narcotics, essential tremor and anxiety who presents with stroke like symptoms since this morning. Woke up around 0730 with difficulty fully opening his eyes and felt like he was stumbling when walking. Was waiting for brother to arrive and by 9AM symptoms had gone away. Symptoms felt similar to previous TIAs. Brother noted he was slurring his speech as well. No focal weakness in extremities. No difficulty swallowing. States he has been taking his atorvastatin and Plavix as scheduled, along with other medications. Take long acting Morphine and PRN Percocet for chronic neck pain. Also on gabapentin, TCA and Topamax at night. Denies any medication changes recently. Denies recent infection. No fever, chills, chest pain, shortness of breath, nausea, vomiting, abdominal pain, dysuria or diarrhea. Ongoing struggle with constipation due to narcotic use. Denies any change to p.o. intake. Allergies Allergy/AdvReac Type Severity Reaction Status Date / Time No Known Allergies Allergy U Verified 04/19/24 23:10 Home Medications Medication Instructions Recorded Confirmed Type amitriptyline 75 mg tablet 37.5 mg PO HS 08/16/18 05/08/24 History morphine 30 mg tablet,extended 30 mg PO BID 08/16/18 05/08/24 History release oxycodone-acetaminophen 10 mg-325 1 tab PO Q4 PRN Pain 08/16/18 05/08/24 History mg tablet (Percocet) promethazine 25 mg tablet 25 mg PO Q6H PRN Nausea 08/16/18 05/08/24 History atorvastatin 80 mg tablet 80 mg PO QAM 09/12/18 05/08/24 History clopidogrel 75 mg tablet 75 mg PO QAM 09/12/18 05/08/24 History tizanidine 4 mg tablet 8 mg PO TID PRN Pain 09/12/18 05/08/24 History gabapentin 400 mg capsule 400 mg PO TID 09/19/18 05/08/24 History metformin 500 mg tablet 500 mg PO QAM 12/25/18 05/08/24 History azelastine 137 mcg (0.1 %) nasal 2 spray intranasal BID PRN Nasal 03/31/19 05/08/24 History spray Congestion lisinopril 10 mg tablet 10 mg PO QAM 04/06/19 05/08/24 History topiramate 25 mg tablet 75 mg PO HS 04/06/19 05/08/24 History propranolol 10 mg tablet 10 mg PO QID 09/24/19 05/08/24 History amlodipine 5 mg tablet (Norvasc) 5 mg PO QAM 03/08/20 05/08/24 History bupropion HCl 150 mg 24 hr tablet, 150 mg PO QAM 09/15/21 05/08/24 History extended release caffeine 200 mg tablet 200 mg PO DAILY Headache 10/22/21 05/08/24 History polyethylene glycol 3350 17 17 g PO DAILY 02/15/23 05/08/24 History gram/dose oral powder (Miralax) cabergoline 0.5 mg tablet 0.25 mg PO 2XWK 06/08/23 05/08/24 History levothyroxine 125 mcg tablet 125 mcg PO DAILY@0630 06/08/23 05/08/24 History acetaminophen 500 mg tablet 1,000 mg PO HS 04/19/24 05/08/24 History (Tylenol Extra Strength) dicyclomine 10 mg capsule 10 mg PO BID PRN ABD CRAMPING 04/19/24 05/08/24 History fluticasone propionate 50 2 spray intranasal BID 04/19/24 05/08/24 History mcg/actuation nasal spray,suspension hydrocortisone 10 mg tablet 10 mg PO BID 04/19/24 05/08/24 History ipratropium bromide 21 mcg (0.03 2 spray intranasal BID PRN 04/19/24 05/08/24 History %) nasal spray Congestion psyllium husk 3.4 gram/5.4 gram 1 tbsp PO DAILY 04/19/24 05/08/24 History oral powder (Metamucil) simethicone 62.5 mg oral strips 1 strip PO DIRECTED PRN 04/19/24 05/08/24 History (Gas-X) GAS/BLOATING triamcinolone acetonide 0.1 % 1 applic topical BID PRN Skin 04/19/24 05/08/24 History topical cream Irritation ketoconazole 2 % shampoo 1 applic topical DIRECTED 05/08/24 05/08/24 History Past Med/Surg History Problem List (Updated 05/08/24 @ 14:56 by Darrion Damon MD) Acute dehydration (Acute) GREYSON (acute kidney injury) (Acute) Brain TIA (Acute) Stroke-like symptoms Acute upper abdominal pain (Acute) S/P endoscopy (Acute) Chronic narcotic dependence Duodenal perforation Therapeutic opioid induced constipation Lactose intolerance Abdominal pain, epigastric Pituitary adenoma (Chronic) "gonadotropin adenoma" Chronic neck pain (Chronic) Cervical post-laminectomy syndrome (Chronic) BPH (benign prostatic hyperplasia) (Chronic) Panhypopituitarism (Chronic) Status [place]henoidal [place]Chronic) [place] [facility] [place]/P cervical spinal fusion (Chronic) "1999" S/P shoulder surgery (Chronic) H/O elbow surgery (Chronic) S/P UPPP (uvulopalatopharyngoplasty) (Chronic) S/P tonsillectomy and adenoidectomy (Chronic) S/P nasal septoplasty (Chronic) S/P Achilles tendon repair (Chronic) HLD (hyperlipidemia) (Chronic) GERD (gastroesophageal reflux disease) (Chronic) Pulmonary nodules (Acute) Chronic folliculitis (Chronic) Chronic constipation (Chronic) Hypertension CKD (chronic kidney disease), stage IV Community acquired bacterial pneumonia Gastric polyps Chronic anemia S/P coronary artery stent placement COPD, moderate Abdominal pain (Acute) Enteritis (Acute) Dysphagia Abdominal pain, acute, epigastric (Acute) Anemia (Acute) History of TIA (transient ischemic attack) (Chronic) X2-->"05/2014" & 06/2017. TAKING PLAVIX. Medical History (Updated 05/08/24 @ 14:56 by Darrion Damon MD) Ischemic bowel disease Bowel perforation Prediabetes Tremor of both hands Environmental allergies On anticoagulant therapy plavix daily 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 Chronic neck pain BPH (benign prostatic hyperplasia) Peptic ulcer disease H/O GERD (gastroesophageal reflux disease) Hypothyroidism Anxiety Hyperlipidemia Hypertension Surgical History Family history of reaction to anesthesia FATHER>ASPIRATED DURING COLONOSCOPY History of colonoscopy History of esophagogastroduodenoscopy (EGD) Nausea and vomiting after administration of anesthetic agent S/P UPPP (uvulopalatopharyngoplasty) H/O Achilles tendon repair x3--RIGHT FOOT H/O elbow surgery RIGHT ELBOW BONE SPUR REMOVAL H/O shoulder surgery LEFT SHOULDER BONE SPUR REMOVAL H/O: pituitary tumor BENIGN TUMOR REMOVED Fusion of spine CERVICAL AREA. UNSURE OF THE LEVELS. LIMITED ROM ALL DIRECTIONS-EASILY CAUSES NECK SPASMS. HAS BEEN INTUBATED SINCE WITHOUT ISSUES. History of nasal septoplasty S/P LASIK surgery of both eyes History of tonsillectomy Family History Uncle Family history of diabetes mellitus Other Hypertension No family history of adverse response to anesthesia Social History Smoking Status: Never smoker Second Hand Exposure: No; Do You Dip or Chew Tobacco: No; Hx Alcohol Use: No Hx Substance Use: No Preferred Language: Belarusian Communication Ability: Effective Visual Impairment: No Limitations Hearing Ability: Normal Development Executive Required: No Beliefs That Will Affect Care: None marital status: Single Current Living Situation: Alone Current Living Situation Comment: At home alone Feels Safe at Home: Yes Assistive Devices: None Review of Systems Review of Systems: At least ten systems reviewed and negative except as noted in the HPI. Physical Exam Physical Exam: General Appearance: WD/WN, vitals as above, NAD, sitting up in bed, pleasant, conversing easily Head: normocephalic, atraumatic Eyes: normal inspection, PERRL, conjunctivae normal, anicteric sclerae ENT: external ear and nose normal, oropharynx normal Neck: normal visual inspection, trachea midline, no thyromegaly Respiratory: normal respiratory effort, lungs clear to auscultation, no wheeze, rales, rhonchi. No accessory muscle use Cardiovascular: bradycardic rate,regular rhythm, normal peripheral pulses, no BLE edema. Vessels: no JVD Chest: normal inspection of chest Abdomen/GI: normal bowel sounds, soft, nontender, no hepatosplenomegaly Extremities/Musculoskeletal: no cyanosis or clubbing, extremities motor strength 5/5 Neurologic: PERRL, EOMI, accommodation nl, no face palsy, + intermittent slurred speech noted, CN's II-XI intact bilaterally and moves all extremities Psychiatric: A+Ox3, euthymic affect Skin: no rashes, normal color, warm/dry Results & Data Results & Data Vital Signs (Past 12 Hours) Vital Signs Temp Pulse Pulse Resp BP BP Pulse Ox 05/08/24 11:09 55 L 12 104/54 L 98 05/08/24 09:48 59 L 05/08/24 09:12 36.0 C L 61 20 79/43 L 100 O2 Del Method 05/08/24 11:09 Room Air 05/08/24 09:48 05/08/24 09:12 Laboratory Results Short CBC 05/08/24 Range/Units 09:25 WBC 9.82 (4.8-10.8) K/ul Hgb 13.5 L (14.0-18.0) g/dl Hct 41.3 L (42.0-52.0) % Plt Count 325 (130-400) K/uL BMP 05/08/24 09:25 Sodium 142 Potassium 4.1 Chloride 109 H Carbon Dioxide 25 BUN 21 Creatinine 1.96 H Glucose 111 H Calcium 9.5 Liver Function 05/08/24 Range/Units 09:25 Total Bilirubin 0.4 (0.2-1.0) mg/dl AST 16 (13-39) U/L ALT 9 (7-52) U/L Alkaline Phosphatase 110 H (34-104) U/L Albumin 4.0 (3.4-5.0) gm/dl Diagnostic Findings Head CT 05/08/24 09:36 CT OF THE HEAD WITHOUT CONTRAST CLINICAL HISTORY: neuro deficit, acute stroke suspected COMPARISON STUDY: MRI of the brain June 26, 2018. Head CT March 31, 2019. CT DOSE: 547.75 mGy.cm TECHNIQUE: Helical axial images of the head were obtained without IV contrast. Automated exposure control was utilized for the study. A dose lowering technique was utilized adhering to the principles of ALARA. FINDINGS: No acute intracranial hemorrhage, midline shift or mass effect is present. The ventricular system is unremarkable. The basal cisterns are patent. No extra-axial collections are present. There are no findings to suggest acute dural sinus thrombosis or acute territorial infarct. There are postoperative findings within the sinuses. Left maxillary sinus mucosal thickening is present. There is also mucosal thickening within the ethmoid and right sphenoid sinuses. IMPRESSION: No acute intracranial findings. ACT 112: Negative or not required by law. Electronically signed by: John Woodson M.D. 05/08/2024 11:19 AM Code Status & VTE Plan VTE Prophylaxis Plan VTE Prophylaxis will be ordered: Yes Supervising Physician Co-Signing Physician Notes Pt was seen and examined by myself, Meggan Juan MD on the day of service. Care was coordinated with Yue Reddy PA-C. 68yoM presenting with concern for facial paralysis, abnormal gait and slurred speech. On exam, states symptoms have resolved. Does not believe his speech is slurred. Neuro exam grossly unremarkable except for noted slurred speech at times. Further Stroke workup-Brain MRI pending, PT/OT/speech Neurology consulted, appreciate further recs Noted bradycardia- will hold home propranolol in setting of chronic narcotic use(percocet + morphine) with occasional benzos (Ativan for MRI) and other home sedating meds. Monitor on telemetry. Consider PCP followup for polypharmacy chronic sinusitis- noted on imaging, consider ENT followup GREYSON- continue IVF Chronic Anemia- consider further workup Otherwise as above. I spent a total [id number] coordinating, documenting, and providing care for this patient excluding time spent in the performance of separately billed services
[2024-05-08] MEDS ORDERED: oxyCODONE/ACETAMINOPHEN 10-325 TAB PO PRN (14:23)
[2024-05-08] MEDS ORDERED: TRIAMCINOLONE ACET 0.1% CR 15 GM TUBE TOP PRN (14:23)
[2024-05-08] MEDS ORDERED: ONDANSETRON INJ 2 MG/ML 2 ML VIAL IV PRN (14:23)
[2024-05-08] MEDS ORDERED: DICYCLOMINE HCL 10 MG CAP PO PRN (14:23)
[2024-05-08] MEDS ORDERED: PROMETHAZINE HCL 25 MG TAB PO PRN (14:23)
[2024-05-08] MEDS ORDERED: PHARMACIST DISCHARGE MED REC CONSULT PRN (14:23)
[2024-05-08] MEDS: SODIUM CHLORIDE 0.9% 1,000 ML IV SCH (14:26)
[2024-05-08] MEDS ORDERED: SIMETHICONE 80 MG CHEW PO PRN (14:53)
[2024-05-08] MEDS ORDERED: IPRATROPIUM BROMIDE NASAL SPRAY 0.06% 15ML NAE PRN (15:05)
[2024-05-08] MEDS: LORazepam 1 MG/1 ML SYR ED Inj Use IV ONE (15:34)
[2024-05-08] MEDS: HYDROCORTISONE 10 MG TAB PO ONE (15:34)
[2024-05-08] MEDS: ATORVASTATIN 40 MG TAB PO ONE (15:35)
[2024-05-08] MEDS: CLOPIDOGREL BISULFATE 75 MG TAB PO ONE (15:36)
[2024-05-08] MEDS: HEPARIN SOD 5,000 UNIT/0.5 ML VIAL SQ SCH (15:38)
[2024-05-08] MEDS: LORazepam 0.25 MG in SYRINGE 0.125 ML IV ONE (17:21)
--- OUTSIDE RECORDS SUMMARY | 2024-05-08 18:35 | External Medical Summary | Summary of Care ---
Author Name Unknown Organization [facility] Address [address] [place] [address] Phone [phone] Care Team Providers Care Support Team Assoc Name Role Phone Briseyda ACUNA MD, Kaylin Cavazos Primary Care Provider [phone] Reason for Visit * Reason Comments eRx-Medication Refill Encounter Details Date Type Department Care Team (Late st Contact Info) Description 05/02/2024 Refill Family Practice [facility] [address] [facility] [place] [address] Geri Renteria PA-C [address] [facility] [place] [address] Allergies Active Allergy Reactions Criticality Noted Date Comments Pollen 10/05/2021 Seasonal allergies, nasal congestion documented as of this encounter (statuses as of 05/02/2024) Medications Medication Sig Dispensed Refills Start Date End Date Status Needle, Disp, (ULLOA NEEDLE) 22G X 1-10/20" MISC To use for injection of dexamethasone in cases of emergency 2 Each 3 5 Active Fluocinonide 0.05 % External SolutionIndication s:Dermatitis Apply to each ear canal daily as needed 20 mL 2 0 Active buPROPion HCl ER (SR) 150 MG Oral Tablet Extended Release 12 Hour (Wellbutrin SR) TAKE 1 TABLET BY MOUTH EVERY MORNING 90 Tablet 1 2 Active Acetaminophen 500 MG Oral Tablet (Tylenol) Take 2 Tablets by mouth at bedtime. Active Caffeine 200 MG Oral Tablet Take 1 Tablet by mouth in the morning. Active Ipratropium [place] 0.03 % Nasal Solution (Atrovent) 2 sprays each nostril twice a day, may use 2 sprays each nostril midday if needed 90 mL 1 2 Active Polyethylene Glycol 3350 17 GM Oral Packet (Miralax) Take 1 Packet by mouth in the morning. Active Clopidogrel Bisulfate 75 MG Oral Tablet (pLAVix) Take 1 Tablet by mouth in the morning. In the morning.. 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 Sellar MRI) for up to 2 doses. 2 Tablet 3 Active Additional Information Patient not taking.Reported on 03/14/2024 Acetaminophen ER 650 MG Oral Tablet Extended Release Take 1 Tablet by mouth every 8 hours as needed. Active Metamucil 48.57 % Oral Powder (Psyllium) Take by mouth. Active Prevagen Extra Strength 20 MG Oral Capsule (Apoaequorin) Take by mouth. Active Gabapentin 400 MG Oral Capsule (Neurontin) Take 1 Capsule by mouth in the morning and 1 Capsule at noon and 1 Capsule before bedtime. 270 Capsule 1 3 Active Clindamycin Phosphate 1 % External SolutionIndication s:Folliculitis DAILY 60 mL 2 3 Active Gas-X Extra Strength 62.5 MG Oral Strip (Simethicone) Take by mouth. Active Oxymetazoline HCl 0.05 % Nasal Solution Administer 2 Sprays into nostril in the morning and 2 Sprays before bedtime. Active Hydrocortisone 10 MG Oral Tablet (Cortef) Take 1 Tablet by mouth in the morning and 1 Tablet before bedtime. 180 Tablet 3 3 Active Promethazine HCl 25 MG Oral Tablet (Phenergan)Indicat ions:Nausea TAKE 1 TABLET (25MG) BY ORAL ROUTE EVERY 6 HOURS NEEDED FOR NAUSEA 20 Tablet 2 3 Active Fluocinolone Acetonide Scalp 0.01 % External Oil ([place]-Smoothe/FS Scalp) Apply to external ear bilaterally as needed for itching. 118.28 mL 3 3 Active Pantoprazole Sodium 40 MG Oral Tablet Delayed Release (Protonix) TAKE 1 TAB BY MOUTH 2 TIMES A DAY. 30 MIN BEFORE MEALS 180 Tablet 3 3 Active Ketoconazole 2 % External Shampoo (Nizoral)Indicatio ns:Folliculitis Apply to chest, back and arms 2-3 x's per weeks. 120 mL 5 3 Active diazePAM 5 MG Oral Tablet (Valium) Take 1 Tablet by mouth once as needed for Anxiety for up to 1 dose. Take within 1 hour of MRI steady 1 Tablet 3 Active Additional Information Patient not taking.Reported on 03/14/2024 Cabergoline 0.5 MG Oral Tablet (Dostinex)Indicati ons:Pituitary macroadenoma (HCC),Hypogonadotr opic hypogonadism syndrome, male (HCC),Panhypopitui tarism (HCC),Hyperprolact inemia (HCC) Take 0.5 Tablets by mouth once a day Tuesday and only. 12 Tablet 3 3 Active Triamcinolone Acetonide 0.1 % External Ointment (Aristocort) Apply to hands twice daily as needed 80 g 5 3 Active amLODIPine Besylate 5 MG Oral Tablet (Norvasc) Take 0.5 Tablets by mouth in the morning. 45 Tablet 3 4 Active Azelastine HCl 0.1 % Nasal Solution Administer 2 Sprays into nostril in the morning and 2 Sprays before bedtime. 90 mL 1 4 Active Fluticasone Propionate 50 MCG/ACT Nasal Suspension (Flonase) Administer 2 Sprays into each nostril in the morning and 2 Sprays before bedtime. 16 g 6 4 Active Amitriptyline HCl 75 MG Oral Tablet (Elavil)Indication s:Insomnia, unspecified type TAKE 1/2 TABLET BY MOUTH EVERYDAY AT BEDTIME 45 Tablet 3 4 Active tiZANidine HCl 4 MG Oral Tablet (Zanaflex) TAKE 2 TABLETS BY MOUTH 3 TIMES A DAY 540 Tablet 11 4 Active Dicyclomine HCl 10 MG Oral Capsule (Bentyl) Take 1 Capsule by mouth 2 times a day as needed for Cramping. 60 Capsule 1 4 Active metFORMIN HCl ER 500 MG Oral Tablet Extended Release 24 Hour (Glucophage XR) TAKE 1 TABLET BY MOUTH EVERY DAY IN THE MORNING 90 Tablet 3 4 Active Fluticasone Propionate 50 MCG/ACT Nasal Suspension (Flonase) Administer 1 [place] into nostril in the morning. 48 g 3 4 Active Topiramate 25 MG Oral Tablet (topAMAX) TAKE 3 TABLETS BY MOUTH AT BEDTIME 270 Tablet 5 4 Active Levothyroxine Sodium 125 MCG Oral Tablet (Levoxyl)Indicatio ns:Central hypothyroidism Take 1 Tablet by mouth daily first thing in the morning. (at least 30 min prior to breakfast or other meds) 90 Tablet 3 4 Active Atorvastatin Calcium 80 MG Oral Tablet (Lipitor)Indicatio ns:Dyslipidemia, goal LDL below 70 TAKE 1 TABLET BY MOUTH EVERY DAY IN THE MORNING 90 Tablet 1 4 Active Lisinopril 10 MG Oral Tablet (Prinivil) TAKE 1 TABLET BY MOUTH EVERY DAY IN THE MORNING 90 Tablet 4 Active oxyCODONE-Acetamin ophen 10-325 MG Oral Tablet (Percocet)Indicati ons:Pain Take 1 Tablet by mouth every 8 hours as needed for Pain, Moderate or Pain, Severe. 60 Tablet 4 Active Sucralfate 1 GM Oral Tablet (Carafate) Take 1 Tablet by mouth 4 times a day as needed for Indigestion. 360 Tablet 4 Active Morphine Sulfate ER 30 MG Oral Tablet Extended Release (Ms Contin)Indications :Pain Take 1 Tablet by mouth in the morning and 1 Tablet before bedtime. 60 Tablet 4 Active Propranolol HCl 10 MG Oral Tablet (Inderal) TAKE 1 TABLET BY MOUTH IN THE MORNING AT AT NOON IN THE EVENING AND BEFORE BEDTIME 360 Tablet 3 4 Active Propranolol HCl 10 MG Oral Tablet (Inderal) Take 1 Tablet by mouth in the morning and 1 Tablet at noon and 1 Tablet in the evening and 1 Tablet before bedtime. 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 History of TIA (transient ischemic attack) 10/28 Seborrheic dermatitis 08/26/2014 Overview: ICD-10 update of inactive term Severe eczema 08/26/2014 Ataxia 06/15/2014 Dysarthria 06/15/2014 Glucocorticoid deficiency 05/21/2014 Pituitary macroadenoma 05/10/2014 Rosacea 05/01/2013 Cervical spondylosis 02/21/2013 Facet arthropathy, cervical 02/21/2013 Hand dermatitis 02/05/2013 Other seborrheic keratosis 02/05/2013 Mckenzie angioma 02/05/2013 Postlaminectomy syndrome of cervical region 08/17 Raynaud's syndrome 12/14/2011 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 MEDICATION USE AGREEMENT 07/01/2010 Myalgia and myositis 04/30/2010 High triglycerides 04/30/2010 HTN, goal below 140/90 04/30/2010 GERD (gastroesophageal reflux disease) 0 Mixed rhinitis 04/30/2010 Irritable bowel syndrome (IBS) 04/30/2010 Hearing loss 04/30/2010 Overview: Left ear documented as of this encounter (statuses as of 05/02/2024) Resolved Problems Problem Noted Date Diagnosed Date Resolved Date Prediabetes 02/24/2021 03/29/2024 Overview: Per Prediabetes protocol Type 2 diabetes mellitus wit hout complications 04/14/2020 02/09/2021 Diabetes mellitus without complication 10/26/2019 10/26/2019 Type 2 diabetes mellitus wit h diabetic dermatitis 01/25/2019 01/25/2019 Prediabetes 07/24/2018 05/01/2020 Overview: Per Prediabetes protocol #1 HTN, goal below 140/90 12/06/201709/14 TIA (transient ischemic attack) 07/27/2017 10/26/2019 Cerebrovascular accident 05/05/2017 Facial laceration 05/05/2017 12/06/2017 Fall 05/05/2017 01/11/2019 Benign neoplasm of pituitary gland and craniopharyngeal duct 04/30/2016 12/06/2017 Essential hypertension 03/23/201612/06 Inflammation of eyelid 04/16/201401/11 Neoplasm of uncertain behavi or of pituitary gland 01/18/2014 05/10/2014 Overview: 1.7 cm Sellar Mass on the Right. Recurrent sinus infections 05/01/2013 0 01/16/2020 Seborrheic dermatitis 05/01/20132017 Hearing loss 08/31/2010 05/10/2014 NECK PAIN 07/01/2010 01/11/2019 Myalgia and myositis 04/30/2010 010 Dyslipidemia, goal LDL below 130 04/30/2010 01/29/2017 documented as of this encounter (statuses as of 05/02/2024) Immunizations Name Administration Dates Next Due COVID-19 mRNA, LNP-s, No Pre serve, 2-Dose Series ([employer]) 09/24/2021,01/05/2021,12/15/2020 COVID-19, MRNA-LNP, 23-24, P F, 30 MCG/0.3 mL, 12 YRS AND ABOVE, IM (PFIZER-Comirnaty) 08/16/2023 Covid-19, Mrna, Lnp-s, Pf, B ivalent, 30 Mcg, IM, 12 yrs and above (Pfizer) 08/20/2022 Pneumococcal Conjugate Vacci ne, 20-valent ([id number]) 04/07/2022 Pneumococcal Polysaccharide PPV23 (Pneumovax) 12/06/2018 RSV Vac., Recomb, Adjuvant, PF,0.5 Ml (Arexvy) 09/01/2023 Seasonal Influenza Virus Vac cine, Unspecified Formulation 06/22/2019,07/06/2018,07/06/2017,08/03,06/20/2014,07/16/2013,07/07/2012 ,07/06/2011,07/21/2010 Seasonal Influenza, PF, 6 M & above, IM , (FluLaval or Fluzone) 06/22/2019,07/06/2018,07/06/2017 Seasonal Influenza, Quadriva lent Hd (Fluzone Hd) 06/21/2023 Seasonal Influenza, Quadriva lent, No Preserve, IM 06/03/2020,08/03/2016 Seasonal Influenza, Split, I IV3, With Preserve, Inj 06/04/2020,06/19/2015,06/20/2014,07/16,07/07/2012,07/06/2011,07/21/2010 Seasonal Influenza, Trivalen t, High Dose, No Preserve, IM 07/05/2022,06/24/2021 TDAP (age 10 and older)(Boostrix) 05/14/2019,,10/17/2006 TDAP, Age 7 and older, IM (Adacel) 10/17/2006 Varicella Zoster Vaccine (Adult) 09/01/2012 Zoster Vaccine Recombinant (Shingrix) 09/19/2018 ,07/05/2018 documented as of this encounter Social History Tobacco Use Types Packs/Day Years Used Date Smoking Tobacco: Never Smokeless Tobacco: Never Alcohol Use Standard Drinks/Week Comments No 0 (1 standard drink = 0.6 oz pur e alcohol) PHQ-2 Answer Date Recorded PHQ Adult Total Score 0 10/05/2021 Hunger Vital Sign Answer Date Recorded Within the past 12 months, y ou worried that your food would run out before you got the money to buy more. Never true 05/17/20 23 Within the past 12 months, t he food you bought just didn't last and you didn't have money to get more. Never true 05/17/2023 Sex and Gender Information Value Date Recorded Sex Assigned at Male 05/17/2023 6:51 PM EDT Gender Identity Male 05/17/2023 6:51 PM EDT Sexual Orientation Straight 05/17/2023 6: 51 PM EDT Job Start Date Occupation Industry Not on file Not on file Not on file documented as of this encounter Functional Status Functional Status Response Date of Assess ment Are you deaf or do you have serious difficulty h earing? Yes 04/12/2017 Are you blind or do you have serious difficulty seeing, even when wearing glasses? Yes 04/12/2017 Do you have serious difficul ty walking or climbing stairs? (5 years old or older) Yes 04/12/2017 Do you have difficulty dress ing or bathing? (5 years old or older) No 04/12/2017 Because of a physical, menta l, or emotional condition, do you have difficulty doing errands alone such as visiting a doctor s office or shopping? (15 years old or older) Yes 04/12/20 Cognitive Status Response Date of Assessm ent Because of a physical, menta l, or emotional condition, do you have serious difficulty concentrating, remembering, or making decisions? (5 years old or older) No 04/12/2017 documented as of this encounter Miscellaneous Notes * Telephone Encounter - Surendra Gilliam [facility] - 05/02/2024 4:37 PM EDTSigned Prescriptions: Disp Refills Propranolol HCl 10 MG Oral Tablet (Inderal)360 Ta*3 Sig: TAKE 1 TABLET BY MOUTH IN THE MORNING AT AT NOON IN THE EVENING AND BEFORE BEDTIMEAuthorizing Provider: KAYLIN EPPS III User: SURENDRA GILLIAM documented in this encounter Plan of Treatment Upcoming Encounters Date Type Department Care Team (Late st Contact Info) Description 05/30/2024 10:00 AM EDT Office Visit Urology, [address] [place] [address] Zane Parker MD [address] [place] [address] 06/19/2024 2:20 PM EDT Office Visit Family Practice [facility] [address] [facility] [place] [address] Geri Renteria PA-C [address] [facility] [place] [address] 06/25/2024 2:30 PM EDT Office Visit Otolaryngology [facility] [address] [facility] [place] [address] Woo Mac DO [address] [place] [address] 07/11/2024 2:00 PM EDT Office Visit Allergy/Immunology [facility] [address] [facility] [place] [address] Inna Garrison PA-C [address] [facility] [place] [address] 08/14/2024 1:30 PM EDT Office Visit Gastroenterology, [facility] [address] [place] [address] Zulay Lou CRNP [address] [place] [address] Health Maintenance Due Date Last Done Comments Fecal Occult Blood Test 2000 Sigmoidoscopy 2000 Depression Screening 10/05/2022 10/05/2021 COVID-19 Vaccine (2022-24 season) 2023 08/16/2023, 08/20/2022, 09/24/2021, Additional history exists B-12 04/21/2024 04/21/2023, 11/18, 11/05/2020, Additional history exists Influenza Vaccine (FLU shot) (#1) 2024 06/21/2023, 07/05/2022, 07/05/2022, Additional history exists TSH 12/27/2024 12/28/2023, 12/15, 12/14/2021, Additional history exists GFR 03/05/2025 03/05/2024, 070 03/2023, 12/29/2022, Additional history exists Cologuard 03/20/2025 03/20/2022 Albumin/Creatinine Ratio 11/17/2025 11/17/2022, 02/14 Lipid Panel 12/27/2028 12/28/2023, 0210/2022, 04/16/2021, Additional history exists DTaP,Tdap,and Td Vaccines (5 - Td or Tdap) 05/14/2029 05/14/2019, 10/12/2013, 10/17/2006, Additional history exists Colonoscopy 05/24/2032 05/24/2022, 05/2022, 11/24/2016, Additional history exists Colorectal Cancer Screening 05/24/2032 Zoster Vaccines Completed 09/19/2018, 06/17, 09/01/2012 Diabetic Foot Exam Discontinued 02/09/2021, 04/14/2020 Pneumococcal Vaccine: 65+ Years Completed 04/07/2022, 12/06/2018 Diabetic Eye Exam Discontinued 09/29/2023, , 04/24/2020 (Done elsewhere), Additional history exists HPV (Gardasil) Vaccine Aged Out No lo nger eligible based on patient's age to complete this topic Hepatitis B Vaccine Aged Out No longe r eligible based on patient's age to complete this topic MENINGOCOCCAL (MENACTRA/MENVEO) Aged Out No longer eligible based on patient's age to complete this topic documented as of this encounter Medical Devices Implanted Type Area Dressmaker Garment Fitter Device Identifier Shelf Expiration Date Model / Serial / Lot Graft Duramatrix [place] 1x3 In - [id number] Implanted:Qty: 1 on 04/11/2017 by Johnny Cox MD at [place] [facility] [place] [employer]LL[employer] MATRIX 08/16/2018 [id number] / / [id number] Clip Padlock Def Closure - [id number] Implanted:Qty: 1 on 06/08/2023 by Juwan Plascencia DO at END[facility] 01/13/2026 [id number] / / Description:placed in duoden al bulb to close perforation documented as of this encounter Advance Directives * Full Code (Latest Code Status on File) Date Activated Date Inactivated Comments 04/13/2017 12:47 AM 04/14/2017 10:18 PM This order reflects the patients wishes and were consensually agreed upon. Care Teams Support Team Assoc Relationship Specialty Start Date End Date Kaylin Epps III, MD [address] [place] [address] PCP - General Family Medicine 03/10/12 documented as of this encounter
--- OUTSIDE RECORDS SUMMARY | 2024-05-08 18:35 | External Medical Summary | Summary of Care ---
Author Name Unknown Organization [facility] Address [address] [place] [address] Phone [phone] Care Team Providers Care Computer Systems Manager Name Role Phone Briseyda ACUNA MD, Johnathan Cavazos Primary Care Provider [phone] Reason for Visit * Reason Onset Date Comments Medication Refill 05/06/2024 Encounter Details Date Type Department Care Team (Late st Contact Info) Description 05/06/[address] [facility] [address] [place] [address] Sanjana Cordero, 200 [place] [address] Pain Allergies Active Allergy Reactions Criticality Noted Date Comments Pollen 10/05/2021 Seasonal allergies, nasal congestion documented as of this encounter (statuses as of 05/07/2024) Medications Medication Sig Dispensed Refills Start Date End Date Status Needle, Disp, (ULLOA NEEDLE) 22G X 1-10/20" MISC To use for injection of dexamethasone in cases of emergency 2 Each 3 08/20/2015 Active Fluocinonide 0.05 % External SolutionIndications :Dermatitis Apply to each ear canal daily as needed 20 mL 2 07/14/2020 Active buPROPion HCl ER (SR) 150 MG Oral Tablet Extended Release 12 Hour (Wellbutrin SR) TAKE 1 TABLET BY MOUTH EVERY MORNING 90 Tablet 1 01/11/2022 Active Acetaminophen 500 MG Oral Tablet (Tylenol) Take 2 Tablets by mouth at bedtime. Active Caffeine 200 MG Oral Tablet Take 1 Tablet by mouth in the morning. Active Ipratropium [place] 0.03 % Nasal Solution (Atrovent) 2 sprays each nostril twice a day, may use 2 sprays each nostril midday if needed 90 mL 1 05/04/2022 Active Polyethylene Glycol 3350 17 GM Oral Packet (Miralax) Take 1 Packet by mouth in the morning. Active Clopidogrel Bisulfate 75 MG Oral Tablet (pLAVix) Take 1 Tablet by mouth in the morning. In the morning.. 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 [facility] MRI) for up to 2 doses. 2 Tablet 12/27/2022 Active Additional Information Patient not taking.Reported on [...] 1 Capsule before bedtime. 270 Capsule 1 05/08/2023 Active Clindamycin Phosphate 1 % External SolutionIndications :Folliculitis DAILY 60 mL 2 06/05/2023 Active Gas-X Extra Strength 62.5 MG Oral Strip (Simethicone) Take by mouth. Active Oxymetazoline HCl 0.05 % Nasal Solution Administer 2 Sprays into nostril in the morning and 2 Sprays before bedtime. Active Hydrocortisone 10 MG Oral Tablet (Cortef) Take 1 Tablet by mouth in the morning and 1 Tablet before bedtime. 180 Tablet 3 07/16/2023 Active Promethazine HCl 25 MG Oral Tablet (Phenergan)Indicati ons:Nausea TAKE 1 TABLET (25MG) BY ORAL ROUTE EVERY 6 HOURS NEEDED FOR NAUSEA 20 Tablet 2 07/27/2023 Active Fluocinolone Acetonide Scalp 0.01 % External Oil ([place]-Smoothe/FS Scalp) Apply to external ear bilaterally as needed for itching. 118.28 mL 3 08/16/2023 Active Pantoprazole Sodium 40 MG Oral Tablet Delayed Release (Protonix) TAKE 1 TAB BY MOUTH 2 TIMES A DAY. 30 MIN BEFORE MEALS 180 Tablet 3 08/30/2023 Active Ketoconazole 2 % External Shampoo (Nizoral)Indication s:Folliculitis Apply to chest, back and arms 2-3 x's per weeks. 120 mL 5 08/29/2023 Active diazePAM 5 MG Oral Tablet (Valium) Take 1 Tablet by mouth once as needed for Anxiety for up to 1 dose. Take within 1 hour of MRI steady 1 Tablet 09/01/2023 Active Additional Information Patient not taking.Reported on 03/14/2024 Cabergoline 0.5 MG Oral Tablet (Dostinex)Indicatio ns:Pituitary macroadenoma (HCC),Hypogonadotro pic hypogonadism syndrome, male (HCC),Panhypopituit arism (HCC),Hyperprolacti nemia (HCC) Take 0.5 Tablets by mouth once a day Tuesday and only. 12 Tablet 3 09/29/2023 Active Triamcinolone Acetonide 0.1 % External Ointment (Aristocort) Apply to hands twice daily as needed 80 g 5 10/09/2023 Active amLODIPine Besylate 5 MG Oral Tablet (Norvasc) Take 0.5 Tablets by mouth in the morning. 45 Tablet 3 10/24/2023 Active Azelastine HCl 0.1 % Nasal Solution Administer 2 Sprays into nostril in the morning and 2 Sprays before bedtime. 90 mL 1 10/24/2023 Active Fluticasone Propionate 50 MCG/ACT Nasal Suspension (Flonase) Administer 2 Sprays into each nostril in the morning and 2 Sprays before bedtime. 16 g 6 11/03/2023 Active Amitriptyline HCl 75 MG Oral Tablet (Elavil)Indications :Insomnia, unspecified type TAKE 1/2 TABLET BY MOUTH EVERYDAY AT BEDTIME 45 Tablet 3 11/14/2023 Active tiZANidine HCl 4 MG Oral Tablet (Zanaflex) TAKE 2 TABLETS BY MOUTH 3 TIMES A DAY 540 Tablet 11 11/24/2023 Active Dicyclomine HCl 10 MG Oral Capsule (Bentyl) Take 1 Capsule by mouth 2 times a day as needed for Cramping. 60 Capsule 1 12/06/2023 Active metFORMIN HCl ER 500 MG Oral Tablet Extended Release 24 Hour (Glucophage XR) TAKE 1 TABLET BY MOUTH EVERY DAY IN THE MORNING 90 Tablet 3 01/16/2024 Active Fluticasone Propionate 50 MCG/ACT Nasal Suspension (Flonase) Administer 1 [place] into nostril in the morning. 48 g 3 01/31/2024 Active Topiramate 25 MG Oral Tablet (topAMAX) TAKE 3 TABLETS BY MOUTH AT BEDTIME 270 Tablet 5 02/13/2024 Active Levothyroxine Sodium 125 MCG Oral Tablet (Levoxyl)Indication s:Central hypothyroidism Take 1 Tablet by mouth daily first thing in the morning. (at least 30 min prior to breakfast or other meds) 90 Tablet 3 02/29/2024 Active Atorvastatin Calcium 80 MG Oral Tablet (Lipitor)Indication s:Dyslipidemia, goal LDL below 70 TAKE 1 TABLET BY MOUTH EVERY DAY IN THE MORNING 90 Tablet 1 03/02/2024 Active Lisinopril 10 MG Oral Tablet (Prinivil) TAKE 1 TABLET BY MOUTH EVERY DAY IN THE MORNING 90 Tablet 03/02/2024 Active oxyCODONE-Acetamino phen 10-325 MG Oral Tablet (Percocet)Indicatio ns:Pain Take 1 Tablet by mouth every 8 hours as needed for Pain, Moderate or Pain, Severe. 60 Tablet 04/27/2024 Active Sucralfate 1 GM Oral Tablet (Carafate) Take 1 Tablet by mouth 4 times a day as needed for Indigestion. 360 Tablet 04/26/2024 Active Morphine Sulfate ER 30 MG Oral Tablet Extended Release (Ms Contin)Indications: Pain Take 1 Tablet by mouth in the morning and 1 Tablet before bedtime. 60 Tablet 05/01/2024 Active Propranolol HCl 10 MG Oral Tablet (Inderal) TAKE 1 TABLET BY MOUTH IN THE MORNING AT AT NOON IN THE EVENING AND BEFORE BEDTIME 360 Tablet 3 05/02/2024 Active documented as of this encounter (statuses as of 05/07/2024) Active Problems Problem Noted Date Diagnosed Date [...] as of this encounter (statuses as of 05/07/2024) Resolved Problems Problem Noted Date Diagnosed Date [...] as of this encounter (statuses as of 05/07/2024) Immunizations Name Administration Dates Next Due COVID-19 mRNA, LNP-s, No Pre serve, 2-Dose Series ([employer]) 09/24/2021,01/05/2021,12/15/2020 COVID-19, MRNA-LNP, 23-24, P F, 30 MCG/0.3 mL, 12 YRS AND ABOVE, IM (SEVENROOMS-Comirnat) 08/16/2023 Covid-19, Mrna, Lnp-s, Pf, B ivalent, 30 Mcg, IM, 12 yrs and above ([employer]) 08/20/2022 Pneumococcal Conjugate Vacci ne, 20-valent ([id number]) 04/07/2022 Pneumococcal Polysaccharide PPV23 (Pneumovax) 12/06/2018 RSV [...] (15 years old or older) Yes 04/12/20 17 Cognitive Status Response Date of Assessm ent Because of a physical, menta l, or emotional condition, do you have serious difficulty concentrating, remembering, or making decisions? (5 years old or older) No 04/12/2017 documented as of this encounter Plan of Treatment Upcoming Encounters Date Type Department Care Team (Late st Contact Info) Description 05/30/2024 10:00 AM EDT Office Visit Urology, [facility] [address] [address] Zane Parker MD [address] [place] [address] 06/19/2024 2:20 PM EDT Office Visit Family Practice [facility] [address] [place] [address] Geri Renteria PA-C [address] [place] [address] 06/25/2024 2:30 PM EDT Office Visit Otolaryngology [facility] [address] [address] Woo Mac DO [address] [address] 07/11/2024 2:00 PM EDT Office Visit Allergy/Immunology [facility] [address] [place] [address] Inna Garrison PA-C [address] [place] [address] 08/14/2024 1:30 PM EDT Office Visit Gastroenterology, [facility] [address] [place] [address] Zulay Lou CRNP [address] [place] [address] Health Maintenance Due Date Last Done Comments Fecal Occult Blood Test 2000 Sigmoidoscopy 2000 Depression Screening 10/05/2022 10/05/2021 COVID-19 Vaccine ( season) 2023 08/16/2023, 08/20/2022, 09/24/2021, Additional history exists B-12 04/21/2024 04/21/2023, 11/18, 11/05/2020, Additional history exists Influenza Vaccine (FLU shot) (#1) 2024 06/21/2023, 07/05/2022, 07/05/2022, Additional history exists TSH 12/27/2024 12/28/2023, 12/15, 12/14/2021, Additional history exists GFR 03/05/2025 03/05/2024, 0703/2023, 12/29/2022, Additional history exists Cologuard 03/20/2025 03/20/2022 Albumin/Creatinine Ratio 11/17/2025 11/17/2022, 02/14 Lipid Panel 12/27/2028 12/28/2023, 02/0 10/2022, 04/16/2021, Additional history exists DTaP,Tdap,and Td Vaccines (5 - Td or Tdap) 05/14/2029 05/14/2019, 10/12/2013, 10/17/2006, Additional history exists Colonoscopy 05/24/2032 05/24/2022, 080 05/2022, 11/24/2016, Additional history exists Colorectal Cancer [...] this encounter Medical Devices Implanted Type Area Dental Treatment Coordinator Device Identifier Shelf Expiration Date Model / Serial / Lot Graft Duramatrix Onlay 1x3 In - [id number] Implanted:Qty: 1 on 04/11/2017 by Johnny Cox MD at OR [facility] Nose COLLAGEN MATRIX 08/16/2018 [id number] / / [id number] Clip Padlock Def Closure - [id number] Implanted:Qty: 1 on 06/08/2023 by Juwan Plascencia DO at ENDOSCOPY [facility] 01/13/2026 [id number] / / Description:placed in duoden al bulb to close perforation documented as of this encounter Visit Diagnoses Diagnosis Pain Generalized pain documented in this encounter Advance Directives * Full Code (Latest Code Status on File) Date Activated Date Inactivated Comments 04/13/2017 12:47 AM 04/14/2017 10:18 PM This order reflects the patients wishes and were consensually agreed upon. Care Teams Computer Systems Manager Relationship Specialty Start Date End Date Johnathan Rain III, MD [address] [place] [address] PCP - General Family Medicine 03/10/12 documented as of this encounter
--- NOTE | 2024-05-08 18:36 | Magnetic Resonance Report ---
MRI OF THE BRAIN WITHOUT CONTRAST CLINICAL HISTORY: TIA symptoms COMPARISON STUDY: MRI of the brain June 26, 2018. Head CT performed earlier today. TECHNIQUE: Utilizing a 1.5 Angie magnet and dedicated coil, multiplanar, multiecho imaging of the bra in was performed without IV contrast. FINDINGS: This exam is mildly compromised by motion artifact. There are no foci of restricted diffusi on to suggest acute infarct. No acute intracranial hemorrhage, midline shift or mass effect is presen t. Ventricular system is unremarkable. Basal cisterns are patent. Flow-voids for the major intracrani al vessels are present. No intracranial masses identified on unenhanced exam. There is extensive muco tyler thickening of the maxillary sinuses, left greater than right. There is mild ethmoid sinus mucosal thickening. IMPRESSION: 1. No acute intracranial findings. 2. Paranasal sinus opacification, as above. ACT 112: Negative or not required by law. Electronically signed by: John Woodson M.D. 05/08/2024 6:34 PM
--- OUTSIDE RECORDS SUMMARY | 2024-05-08 18:36 | External Medical Summary | Summary of Care ---
Author Name Unknown Organization [facility] Address [address] [place] [address] Phone [phone] Care Team Providers Care Nursing Program Chair Name Role Phone Briseyda ACUNA MD, Johnathan Cavazos Primary Care Provider [phone] Reason for Visit * Reason Onset Date Comments Medication Refill 04/25/2024 Encounter Details Date Type Department Care Team (Late st Contact Info) Description 04/25/2024 Refill Family Practice [facility] [address] [facility] [place] [address] Jesse Pascual, DO [address] [place] [address] Pain Allergies Active Allergy Reactions Criticality Noted Date Comments Pollen 10/05/2021 Seasonal allergies, nasal congestion documented as of this encounter (statuses as of 04/27/2024) Medications Medication Sig Dispensed Refills Start Date End Date Status Needle, Disp, (ULLOA NEEDLE) 22G X 1-/" MISC To use for injection of dexamethasone in cases of emergency 2 Each 3 5 Active Fluocinonide 0.05 % External SolutionIndications :Dermatitis [...] by mouth in the morning. Active Ipratropium [place] 0.03 % Nasal Solution (Atrovent) 2 sprays [...] 3 Active LORazepam 2 MG Oral Tablet (Ativan)Indications [...] 3 Active Clindamycin Phosphate 1 % External SolutionIndications :Folliculitis DAILY 60 mL 2 3 Active Gas-X [...] Fluocinolone Acetonide Scalp 0.01 % External Oil ([place]-Smoothe/FS Scalp) Apply to external ear bilaterally as needed for itching. 118.28 mL 3 3 Active Pantoprazole Sodium 40 MG Oral Tablet Delayed Release (Protonix) TAKE 1 TAB BY MOUTH 2 TIMES A DAY. 30 MIN BEFORE MEALS 180 Tablet 3 3 Active Ketoconazole 2 % External Shampoo (Nizoral)Indication s:Folliculitis Apply to chest, back and arms 2-3 x's per weeks. 120 mL 5 3 Active diazePAM 5 MG Oral Tablet (Valium) Take 1 Tablet by mouth once as needed for Anxiety for up to 1 dose. Take within 1 hour of MRI steady 1 Tablet 3 Active Additional Information Patient not taking.Reported on 03/14/2024 Propranolol HCl 10 MG Oral Tablet (Inderal) Take 1 Tablet by mouth in the morning and 1 Tablet at noon and 1 Tablet in the evening and 1 Tablet before bedtime. 360 Tablet 1 3 Active Cabergoline 0.5 MG Oral Tablet (Dostinex)Indicatio ns:Pituitary [...] 50 MCG/ACT Nasal Suspension (Flonase) Administer 1 [place] into nostril in the morning. 48 g [...] IN THE MORNING 90 Tablet 4 Active Morphine Sulfate ER 30 MG Oral Tablet Extended Release (Ms Contin)Indications: Pain Take 1 Tablet by mouth in the morning and 1 Tablet before bedtime. 60 Tablet 4 Active oxyCODONE-Acetamino phen 10-325 MG Oral Tablet (Percocet)Indicatio ns:Pain Take 1 Tablet by mouth every 8 hours as needed for Pain, Moderate or Pain, Severe. 60 Tablet 4 Active oxyCODONE-Acetamino phen 10-325 MG Oral Tablet (Percocet)Indicatio ns:Pain Take 1 Tablet by mouth every 8 hours as needed for Pain, Moderate or Pain, Severe. 60 Tablet 4 04/25/20 24 Discontinu ed(Refill) documented as of this encounter (statuses as of 04/27/2024) Active Problems Problem Noted Date Diagnosed Date [...] as of this encounter (statuses as of 04/27/2024) Resolved Problems Problem Noted Date Diagnosed Date [...] as of this encounter (statuses as of 04/27/2024) Immunizations Name Administration Dates Next Due COVID-19 mRNA, LNP-s, No Pre serve, 2-Dose Series ([employer]) 09/24/2021,01/05/2021,12/15/2020 COVID-19, MRNA-LNP, 23-24, P F, 30 MCG/0.3 mL, 12 YRS AND ABOVE, IM (PFIZER-Comirnaty) 08/16/2023 Covid-19, Mrna, Lnp-s, Pf, B ivalent, 30 Mcg, IM, 12 yrs and above ([employer]) 08/20/2022 Pneumococcal Conjugate Vacci ne, 20-valent ([id number]) 04/07/2022 Pneumococcal Polysaccharide PPV23 (Pneumovax) 12/06/2018 RSV [...] encounter Miscellaneous Notes * Telephone Encounter - Nicky Kim MD - 04/27/2024 2:06 PM EDTSigned Prescriptions: Disp Refills oxyCODONE-Acetaminophen 10-325 MG Oral Tab*60 Tab*0 Sig: Take 1 Tablet by mouth every 8 hours as needed for Pain, Moderate or Pain, Severe. Authorizing Provider: NICKY KIM * Telephone Encounter - Estrella Prasad [facility] - 04/26/2024 3:42 PM EDTPending Prescriptions: Disp Refills oxyCODONE-Acetaminophen 10-325 MG Oral Tab*60 Tab*0 Sig: Take 1 Tablet by mouth every 8 hours as needed for Pain, Moderate or Pain, Severe. * Telephone Encounter - Estrella Prasad RPh - 04/26/2024 3:40 PM EDT I have reviewed the patients controlled substance dispensing history in the Prescription Drug Monitoring Program in compliance with the [facility] regulations before prescribing a controlled substance. PDMP checked on 04/26/2024. Pending Prescriptions: Disp Refills oxyCODONE-Acetaminophen 10-325 MG Oral Ta*60 Tab*0 Sig: Take 1 Tablet by mouth every 8 hours as needed for Pain, Moderate or Pain, Severe. Last Visit: 03/14/2024 (in office), Visit date not found (telemedicine) Next Visit: 06/19/2024 Date medication was last filled: 03/20 Date medication is due for refill: 04/08 Pharmacy: [id number] [id number] [facility] Is this request for a controlled substance? Yes and Urine Drug Screen Not completed Toxicology results: Results for orders placed or performed in visit on 04/08/22 PAIN MANAGEMENT DRUG PANEL, URINE W/ INTERPRETATION Result Value Compliance Interpretation Based on medication info provided, The presence of Oxycodone and Oxymorphone is CONSISTENT with Oxycodone prescription. The presence of morphine and hydromorphone is CONSISTENT with morphine prescription. Amphetamines Screen, U Negative Benzodiazepines Screen, U Negative Cannabinoids Screen, U Negative Cocaine Metabolite Screen, U Negative Fentanyl Screen, U Negative Hydrocodone Screen, U Refer to confirmation results (A) Methadone Metabolite Screen, U Negative Morphine/Codeine Screen, U Refer to confirmation results (A) Oxycodone Screen, U Refer to confirmation results (A) Valid Interpretation Normal Creatinine, U 194 Narrative Cutoff Concentrations: Drug Level Amphetamines 500 ng/mL Benzodiazepines 100 ng/mL Cannabinoids 50 ng/mL Cocaine Metabolite 150 ng/mL Fentanyl 1 ng/mL Hydrocodone / Hydromorphone 300 ng/mL Methadone Metabolite 100 ng/mL Morphine / Codeine 300 ng/mL Oxycodone / Oxymorphone 100 ng/mL Screening results are presumptive and can only be used for medical purposes. Confirmatory testing is available upon request. Results for orders placed or performed in visit on 02/09/21 PAIN MANAGEMENT DRUG PANEL, URINE Result Value Amphetamines Screen, U Negative Benzodiazepines Screen, U Negative Cannabinoids Screen, U Negative Cocaine Metabolite Screen, U Negative Hydrocodone Screen, U Refer to confirmation results (A) Methadone Metabolite Screen, U Negative Morphine/Codeine Screen, U Refer to confirmation results (A) Oxycodone Screen, U Refer to confirmation results (A) Valid Interpretation Normal Creatinine, U 42 Narrative Cutoff Concentrations: Drug Level Amphetamines 500 ng/mL Benzodiazepines 100 ng/mL Cannabinoids 50 ng/mL Cocaine Metabolite 150 ng/mL Hydrocodone / Hydromorphone 100 ng/mL Methadone Metabolite 100 ng/mL Morphine / Codeine 300 ng/mL Oxycodone / Oxymorphone 100 ng/mL Screening results are presumptive and can only be used for medical purposes. Confirmatory testing is available upon request. *Note: Due to a large number of results and/or encounters for the requested time period, some results have not been displayed. A complete set of results can be found in Results Review. Please approve if appropriate. Thank you, Estrella Prasad, PharmD Clinical Pharmacist [facility] ([facility]) [phone] 04/26/2024, 3:40 PM documented in this encounter Plan of Treatment Upcoming Encounters Date Type Department Care Team (Late st Contact Info) Description 05/30/2024 10:00 AM EDT Office Visit Urology, [facility] [address] [facility] [address] [place] [address] Zane Parker MD [address] [address] 06/19/2024 2:20 PM EDT [facility] [address] [place] [address] Geri Renteria PA-C [address] [facility] [place] [place] [address] 06/25/2024 2:30 PM EDT Office Visit Otolaryngology [facility] [address] [place] [address] Woo Mac DO [address] [place] [address] 07/11/2024 2:00 PM EDT Office Visit Allergy/Immunology [facility] [address] [facility] [place] [address] Inna Garrison PA-C [address] [facility] [place] [address] 08/14/2024 1:30 PM EDT Office Visit Gastroenterology, [facility] [address] [place] [address] Zulay Lou CRNP [address] [place] [address] Health Maintenance Due Date Last Done Comments Fecal Occult Blood Test 2000 Sigmoidoscopy 2000 Depression Screening 10/05/2022 10/05/2021 COVID-19 Vaccine (2022- season) 2023 08/16/2023, 08/20/2022, 09/24/2021, Additional history exists B-12 04/21/2024 04/21/2023, 11/18, 11/05/2020, Additional history exists Influenza Vaccine (FLU shot) (#1) 2024 06/21/2023, 07/05/2022, 07/05/2022, Additional history exists TSH 12/27/2024 12/28/2023, 12/15, 12/14/2021, Additional history exists GFR 03/05/2025 03/05/2024, 03/2023, 12/29/2022, Additional history exists Cologuard 03/20/2025 03/20/2022 Albumin/Creatinine Ratio 11/17/2025 11/17/2022, 02/14 Lipid Panel 12/27/2028 12/28/2023, 10/2022, 04/16/2021, Additional history exists DTaP,Tdap,and Td [...] this encounter Medical Devices Implanted Type Area Oracle Software Engineer Device Identifier Shelf Expiration Date Model / Serial / Lot Graft Duramatrix Onlay 1x3 In - [id number] Implanted:Qty: 1 on 04/11/2017 by Johnny Cox MD at [place] [facility] [place] Nose COLLAGEN MATRIX 08/16/2018 [id number] / / [id number] Clip Padlock Def Closure - [id number] Implanted:Qty: 1 on 06/08/2023 by Juwan Plascencia DO at ENDOSCOPY [facility] 01/13/2026 [id number] / / Description:placed in duoden al bulb to close perforation documented as of this encounter Visit Diagnoses Diagnosis Pain Generalized pain documented in this encounter Advance Directives * Full Code (Latest Code Status on File) Date Activated Date Inactivated Comments 04/13/2017 12:47 AM 04/14/2017 10:18 PM This order reflects the patients wishes and were consensually agreed upon. Care Teams Nursing Program Chair Relationship Specialty Start Date End Date Johnathan Rain III, MD [address] [facility] [place] [address] PCP - General Family Medicine 03/10/12 documented as of this encounter
--- OUTSIDE RECORDS SUMMARY | 2024-05-08 18:36 | External Medical Summary | Summary of Care ---
Author Name Unknown Organization [facility] Address [address] [place] [address] Phone [phone] Care Team Providers Care Air Traffic Control Specialist Center Name Role Phone Briseyda ACUNA MD, Johnathan Cavazos Primary Care Provider [phone] Reason for Visit * Reason Comments eRx-Medication Refill Encounter Details Date Type Department Care Team (Late st Contact Info) Description 04/26/2024 Refill Gastroenterology, [facility] [address] [facility] [place] [address] Zulay Pulido CRNP [address] [facility] [place] [address] Allergies Active Allergy Reactions Criticality Noted Date Comments Pollen 10/05/2021 Seasonal allergies, nasal congestion documented as of this encounter (statuses as of 04/26/2024) Medications Medication Sig Dispensed Refills Start Date End Date Status Needle, Disp, (ULLOA NEEDLE) 22G X 1-1/4" MISC To use for injection of dexamethasone [...] by mouth in the morning. Active Ipratropium [place] 0.03 % Nasal Solution (Atrovent) 2 sprays [...] Fluocinolone Acetonide Scalp 0.01 % External Oil ([place]ell-Smoothe/FS Scalp) Apply to external ear bilaterally as [...] 3 Active Cabergoline 0.5 MG Oral Tablet (Dostinex)Indicati ons:Pituitary [...] 50 MCG/ACT Nasal Suspension (Flonase) Administer 1 [place] into nostril in the morning. 48 g [...] or Pain, Severe. 60 Tablet 4 Active Morphine Sulfate ER 30 MG Oral Tablet Extended Release (Ms Contin)Indications :Pain Take 1 Tablet by mouth in the morning and 1 Tablet before bedtime. 60 Tablet 4 Active Sucralfate 1 GM Oral Tablet (Carafate) Take 1 Tablet by mouth 4 times a day as needed for Indigestion. 360 Tablet 4 Active Sucralfate 1 GM Oral Tablet (Carafate) Take 1 Tablet by mouth in the morning and 1 Tablet at noon and 1 Tablet in the evening and 1 Tablet before bedtime. 360 Tablet 4 024 Discontinued documented as of this encounter (statuses as of 04/26/2024) Active Problems Problem Noted Date Diagnosed Date [...] as of this encounter (statuses as of 04/26/2024) Resolved Problems Problem Noted Date Diagnosed Date [...] as of this encounter (statuses as of 04/26/2024) Immunizations Name Administration Dates Next Due COVID-19 mRNA, LNP-s, No Pre serve, 2-Dose Series (Yoono) 09/24/2021,01/05/2021,12/15/2020 COVID-19, MRNA-LNP, 23-24, P F, 30 MCG/0.3 mL, 12 YRS AND ABOVE, IM (sevenload-Comirnaty) 08/16/2023 Covid-19, Mrna, Lnp-s, Pf, B ivalent, 30 Mcg, IM, 12 yrs and above (Pfizer) 08/20/2022 Pneumococcal Conjugate Vacci ne, 20-valent ([id number]) 04/07/2022 Pneumococcal Polysaccharide PPV23 (Pneumovax) 12/06/2018 RSV [...] encounter Miscellaneous Notes * Telephone Encounter - Delonte Rubio RPh - 04/26/2024 3:11 PM EDTSigned Prescriptions: Disp Refills Sucralfate 1 GM Oral Tablet (Carafate) 360 Ta*0 Sig: Take 1 Tablet by mouth 4 times a day as needed for Indigestion.Authorizing Provider: ZULAY PULIDO User: DELONTE RUBIO * Telephone Encounter - Delonte Rubio RPh - 04/26/2024 2:57 PM EDT Note from 02/01 to change to PRN. Directions updated Thanks, Mason Rubio, PharmD Clinical Pharmacist Centralized Clinical Pharmacy Services ([facility]) [phone] 04/26/2024 3:06 PM documented in this encounter Plan of Treatment Upcoming Encounters Date Type Department Care Team (Late st Contact Info) Description 05/30/2024 10:00 AM EDT Office Visit Urology, [facility] [address] [place] [address] Zane Parker MD [address] [place] [address] 06/19/2024 2:20 PM EDT Office Visit Family Practice [facility] [address] [facility] [place] [address] Geri Renteria PA-C [address] [facility] [place] [address] 06/25/2024 2:30 PM EDT Office Visit Otolaryngology [facility] [address] [place] [address] Woo aMc DO [address] [place] [address] 07/11/2024 2:00 PM EDT Office Visit Allergy/Immunology [facility] [address] [facility] [place] [address] Inna Garrison PA-C [address] [facility] [place] [address] 08/14/2024 1:30 PM EDT Office Visit Gastroenterology, [facility] [address] [place] [address] Zulay Pulido CRNP [address] [place] [address] Health Maintenance Due Date Last Done Comments Fecal Occult Blood Test 2000 Sigmoidoscopy 2000 Depression Screening 10/05/2022 10/05/2021 COVID-19 Vaccine (2022-24 season) 2023 08/16/2023, 08/20/2022, 09/24/2021, Additional history exists B-12 04/21/2024 04/21/2023, /05/2022, 11/05/2020, Additional history exists Influenza Vaccine (FLU shot) (#1) 2024 06/21/2023, 07/05/2022, 07/05/2022, Additional history exists TSH 12/27/2024 12/28/2023, 12/15, 12/14/2021, Additional history exists GFR 03/05/2025 03/05/2024, 07/0 03/2023, 12/29/2022, Additional history exists Cologuard 03/20/2025 03/20/2022 Albumin/Creatinine Ratio 11/17/2025 11/17/2022, 02/14 Lipid Panel 12/27/2028 12/28/2023, 02/0 10/2022, 04/16/2021, Additional history exists DTaP,Tdap,and Td Vaccines (5 - Td or Tdap) 05/14/2029 05/14/2019, 10/12/2013, 10/17/2006, Additional history exists Colonoscopy 05/24/2032 05/24/2022, 08/0 05/2022, 11/24/2016, Additional history exists Colorectal Cancer [...] this encounter Medical Devices Implanted Type Area Infrastructure Director Device Identifier Shelf Expiration Date Model / Serial / Lot Graft Duramatrix Onlay 1x3 In - [id number] Implanted:Qty: 1 on 04/11/2017 by Johnny Cox MD at [facility] [place] Nose COLLAGEN MATRIX 08/16/2018 [id number] / / [id number] Clip Padlock Def Closure - [id number] Implanted:Qty: 1 on 06/08/2023 by Juwan Plascencia DO at [facility] 01/13/2026 [id number] / / Description:placed in duoden al bulb to close perforation documented as of this encounter Advance Directives * Full Code (Latest Code Status on File) Date Activated Date Inactivated Comments 04/13/2017 12:47 AM 04/14/2017 10:18 PM This order reflects the patients wishes and were consensually agreed upon. Care Teams Air Traffic Control Specialist Center Relationship Specialty Start Date End Date Johnathan Rain III, MD [address] [facility] [place] [address] PCP - General Family Medicine 03/10/12 documented as of this encounter
--- OUTSIDE RECORDS SUMMARY | 2024-05-08 18:36 | External Medical Summary | Summary of Care ---
Author Name Unknown Organization [facility] Address [address] [place] [address] Phone [phone] Care Team Providers Care Mine Inspector Federal Name Role Phone Briseyda ACUNA MD, Johnathan Cavazos Primary Care Provider [phone] Reason for Visit * Reason Onset Date Comments Medication Refill 04/30/2024 Encounter Details Date Type Department Care Team (Late st Contact Info) Description 04/30/2024 Refill Family Practice [facility] [address] [facility] [place] [address] Jesse Pascual, DO [address] [place] [address] Pain Allergies Active Allergy Reactions Criticality Noted Date Comments Pollen 10/05/2021 Seasonal allergies, nasal congestion documented as of this encounter (statuses as of 05/01/2024) Medications Medication Sig Dispensed Refills Start Date End Date Status Needle, Disp, (ULLOA NEEDLE) 22G X 1-/4" MISC To use for injection of dexamethasone [...] by mouth in the morning. Active Ipratropium [place] 0.03 % Nasal Solution (Atrovent) 2 sprays [...] Fluocinolone Acetonide Scalp 0.01 % External Oil (Annabella-Smoothe/FS Scalp) Apply to external ear bilaterally as [...] 50 MCG/ACT Nasal Suspension (Flonase) Administer 1 [place] into nostril in the morning. 48 g [...] IN THE MORNING 90 Tablet 4 Active oxyCODONE-Acetamino phen 10-325 MG [...] Tablet before bedtime. 60 Tablet 4 Active Morphine Sulfate ER 30 MG Oral Tablet Extended Release (Ms Contin)Indications: Pain Take 1 Tablet by mouth in the morning and 1 Tablet before bedtime. 60 Tablet 4 04/30/20 24 Discontinu ed(Refill) documented as of this encounter (statuses as of 05/01/2024) Active Problems Problem Noted Date Diagnosed Date [...] as of this encounter (statuses as of 05/01/2024) Resolved Problems Problem Noted Date Diagnosed Date [...] as of this encounter (statuses as of 05/01/2024) Immunizations Name Administration Dates Next Due COVID-19 mRNA, LNP-s, No Pre serve, 2-Dose Series ([place]) 09/24/2021,01/05/2021,12/15/2020 COVID-19, MRNA-LNP, 23-24, P F, 30 MCG/0.3 mL, 12 YRS AND ABOVE, IM (PFIZER-Comirnaty) 08/16/2023 Covid-19, Mrna, Lnp-s, Pf, B ivalent, 30 Mcg, IM, 12 yrs and above (Pfizer) 08/20/2022 Pneumococcal Conjugate Vacci ne, 20-valent ([id number]) 04/07/2022 Pneumococcal Polysaccharide PPV23 (Pneumovax) 12/06/2018 RSV [...] encounter Miscellaneous Notes * Telephone Encounter - Jaycee Cordero DO - 05/01/2024 5:06 PM EDT Signed Prescriptions: Disp Refills Morphine Sulfate ER 30 MG Oral Tablet Exte*60 Tab*0 Sig: Take 1 Tablet by mouth in the morning and 1 Tablet before bedtime. Authorizing Provider: JAYCEE CORDERO * Telephone Encounter - Sebastien [facility] - 05/01/2024 4:01 PM EDTPending Prescriptions: Disp Refills Morphine Sulfate ER 30 MG Oral Tablet Exte*60 Tab*0 Sig: Take 1 Tablet by mouth in the morning and 1 Tablet before bedtime. * Telephone Encounter - TruongSebastien jimenezMichel - 05/01/2024 4:00 PM EDT I have reviewed the patients controlled substance dispensing history in the Prescription Drug Monitoring Program in compliance with the [facility] regulations before prescribing a controlled substance. PDMP checked on 05/01/2024. Pending Prescriptions: Disp Refills Morphine Sulfate ER 30 MG Oral Tablet Ext*60 Tab*0 Sig: Take 1 Tablet by mouth in the morning and 1 Tablet before bedtime. Last Visit: 03/14/2024 (in office), Visit date not found (telemedicine) Next Visit: 06/19/2024 Date medication was last filled: 04/04/24 Date medication is due for refill: 05/03/24 Pharmacy: [id number] Is this request for a controlled substance? [...] in Results Review. Please approve if appropriate. Thanks, Sebastien John Rph, Pharm D. Clinical Pharmacist Centralized Clinical Pharmacy Services/[facility] [phone] 05/01/2024,4:00 PM documented in this encounter Plan of Treatment Upcoming Encounters Date Type Department Care Team (Late st Contact Info) Description 05/30/2024 10:00 AM EDT Office Visit Urology, [facility] [address] [facility] [place] [address] Zane Parker MD [address] [place] [address] 06/19/2024 2:20 PM EDT [facility] [address] [place] [address] Geri Renteria PA-C [address] [place] [address] 06/25/2024 2:30 PM EDT Office Visit Otolaryngology [facility] [address] [facility] [place] [address] Woo Mac DO [address] [place] [address] 07/11/2024 2:00 PM EDT Office Visit Allergy/Immunology [facility] [address] [place] [address] Inna Garrison PA-C 200 [facility] [place] [address] 08/14/2024 1:30 PM EDT Office Visit Gastroenterology, [facility] [address] [place] [address] Zulay Lou CRNP [address] [facility] [place] [address] Health Maintenance Due Date Last Done Comments [...] 11/17/2025 11/17/2022, 02/14 Lipid Panel 12/27/2028 12/28/2023, 020 10/2022, 04/16/2021, Additional history exists DTaP,Tdap,and Td [...] this encounter Medical Devices Implanted Type Area Ged Instructor Device Identifier Shelf Expiration Date Model / Serial / Lot Graft Duramatrix Onlay 1x3 In - [id number] Implanted:Qty: 1 on 04/11/2017 [place] Cox [place] [facility] [place] COLLAGEN MATRIX 08/16/2018 [id number] / / [id number] Clip Padlock Def Closure - [id number] Implanted:Qty: 1 on 06/08/2023 by Juwan Plascencia DO at [facility] 01/13/2026 [id number] / / Description:placed in duoden al bulb to close perforation documented as of this encounter Visit Diagnoses Diagnosis Pain Generalized pain documented in this encounter Advance Directives * Full Code (Latest Code Status on File) Date Activated Date Inactivated Comments 04/13/2017 12:47 AM 04/14/2017 10:18 PM This order reflects the patients wishes and were consensually agreed upon. Care Teams Mine Inspector Federal Relationship Specialty Start Date End Date Johnathan Rain III, MD [address] [place] [address] PCP - General Family Medicine 03/10/12 documented as of this encounter
--- NOTE | 2024-05-08 18:37 | XRay Report ---
KUB CLINICAL HISTORY: GREYSON, chronic constipation COMPARISON STUDY: CT of the abdomen and pelvis June 08, 2023. FINDINGS: The bowel gas pattern is normal. There is a moderate to large amount of stool within the co oni. There is a small amount of stool within the rectum. Pelvic calcifications favor phleboliths. Met allic clip within the right upper quadrant is incidentally noted. No evidence for free air on supine exam. IMPRESSION: 1. No evidence for a bowel obstruction. 2. Moderate to large amount of stool within the colon. ACT 112: Negative or not required by law. Electronically signed by: John Woodson M.D. 05/08/2024 6:36 PM
--- NOTE | 2024-05-08 18:44 | Neurology Consultation ---
Date of Consultation May 08, 2024 Assessment & Plan (1) Acute dehydration: Patient presents with symptoms consistent with polypharmacy in the setting of dehydration and GREYSON. MRI is negative and symptoms were not overall consistent with stroke in this context. No further stroke workup recommended. Patient can be discharged from our perspective, on his home plavix and lipitor regimen. Medication adjustments defer to medicine team and PCP. Telehealth Consultation Telehealth Information Telehealth Information: I performed this visit using a real-time telehealth connection between my location and the patients location ([facility]). After connecting through interactive tele-video, patient was identified by name and date of and/or wristband check.Patient (or authorized healthcare public health representative) was informed that this was a telemedicine visit and it was being conducted confidentially over secure lines. My office door was closed and no one else was present in the room with me.Patient (or authorized healthcare public health representative) provided consent to proceed with the visit, expressed an understanding of privacy and security of the telemedicine visit, and gave permission to have a hospital public health representative in the room in order to assist with the visit and to conduct portions of the visit, as needed. I informed the patient (or authorized healthcare public health representative) that I reviewed their record and presented the opportunity for them to ask any questions regarding the visit today. The patient agreed to participate. History of Present Illness Reason for Consultation: Transient dysarthria Requesting Physician: Dr. Juan Attending Physician: Meggan Juan MD History of Present Illness Roman delcid is a 68 yo M presenting with transient dizziness, eye closure, dysarthria and gait instability this morning upon waking up. His symptoms largely resolved upon arrival to the ED where he was found to have dehydration and an GREYSON. He reports taking his usual medications this morning which included narcotics for his back pain. He reports having had two TIAs in the past but none since being on plavix. Given the symptoms similarity to prior TIAs he decided to come to the hospital. Currently he feels well with no residual symptoms. Allergies Allergy/AdvReac Type Severity Reaction Status Date / Time No Known Allergies Allergy U Verified 04/19/24 23:10 Home Medications Medication Instructions Recorded Confirmed Type amitriptyline 75 mg tablet 37.5 mg PO HS 08/16/18 05/08/24 History morphine 30 mg tablet,extended 30 mg PO BID 08/16/18 05/08/24 History release oxycodone-acetaminophen 10 mg-325 1 tab PO Q4 PRN Pain 08/16/18 05/08/24 History mg tablet (Percocet) promethazine 25 mg tablet 25 mg PO Q6H PRN Nausea 08/16/18 05/08/24 History atorvastatin 80 mg tablet 80 mg PO QAM 09/12/18 05/08/24 History clopidogrel 75 mg tablet 75 mg PO QAM 09/12/18 05/08/24 History tizanidine 4 mg tablet 8 mg PO TID PRN Pain 09/12/18 05/08/24 History gabapentin 400 mg capsule 400 mg PO TID 09/19/18 05/08/24 History metformin 500 mg tablet 500 mg PO QAM 12/25/18 05/08/24 History azelastine 137 mcg (0.1 %) nasal 2 spray intranasal BID PRN Nasal 03/31/19 05/08/24 History spray Congestion lisinopril 10 mg tablet 10 mg PO QAM 04/06/19 05/08/24 History topiramate 25 mg tablet 75 mg PO HS 04/06/19 05/08/24 History propranolol 10 mg tablet 10 mg PO QID 09/24/19 05/08/24 History amlodipine 5 mg tablet (Norvasc) 5 mg PO QAM 03/08/20 05/08/24 History bupropion HCl 150 mg 24 hr tablet, 150 mg PO QAM 09/15/21 05/08/24 History extended release caffeine 200 mg tablet 200 mg PO DAILY Headache 10/22/21 05/08/24 History polyethylene glycol 3350 17 17 g PO DAILY 02/15/23 05/08/24 History gram/dose oral powder (Miralax) cabergoline 0.5 mg tablet 0.25 mg PO 2XWK 06/08/23 05/08/24 History levothyroxine 125 mcg tablet 125 mcg PO DAILY@0630 06/08/23 05/08/24 History acetaminophen 500 mg tablet 1,000 mg PO HS 04/19/24 05/08/24 History (Tylenol Extra Strength) dicyclomine 10 mg capsule 10 mg PO BID PRN ABD CRAMPING 04/19/24 05/08/24 History fluticasone propionate 50 2 spray intranasal BID 04/19/24 05/08/24 History mcg/actuation nasal spray,suspension hydrocortisone 10 mg tablet 10 mg PO BID 04/19/24 05/08/24 History ipratropium bromide 21 mcg (0.03 2 spray intranasal BID PRN 04/19/24 05/08/24 History %) nasal spray Congestion psyllium husk 3.4 gram/5.4 gram 1 tbsp PO DAILY 04/19/24 05/08/24 History oral powder (Metamucil) simethicone 62.5 mg oral strips 1 strip PO DIRECTED PRN 04/19/24 05/08/24 History (Gas-X) GAS/BLOATING triamcinolone acetonide 0.1 % 1 applic topical BID PRN Skin 04/19/24 05/08/24 History topical cream Irritation ketoconazole 2 % shampoo 1 applic topical DIRECTED 05/08/24 05/08/24 History Patient History 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 Chronic neck pain BPH (benign prostatic hyperplasia) Peptic ulcer disease H/O GERD (gastroesophageal reflux disease) Hypothyroidism Anxiety Hyperlipidemia Hypertension Surgical History Family history of reaction to anesthesia FATHER>ASPIRATED DURING COLONOSCOPY History of colonoscopy History of esophagogastroduodenoscopy (EGD) Nausea and vomiting after administration of anesthetic agent S/P UPPP (uvulopalatopharyngoplasty) H/O Achilles tendon repair x3--RIGHT FOOT H/O elbow surgery RIGHT ELBOW BONE SPUR REMOVAL H/O shoulder surgery LEFT SHOULDER BONE SPUR REMOVAL H/O: pituitary tumor BENIGN TUMOR REMOVED Fusion of spine CERVICAL AREA. UNSURE OF THE LEVELS. LIMITED ROM ALL DIRECTIONS-EASILY CAUSES NECK SPASMS. HAS BEEN INTUBATED SINCE WITHOUT ISSUES. History of nasal septoplasty S/P LASIK surgery of both eyes History of tonsillectomy Family History Uncle Family history of diabetes mellitus Other Hypertension No family history of adverse response to anesthesia Social History Smoking Status: Never smoker Second Hand Exposure: No; Do You Dip or Chew Tobacco: No; Hx Alcohol Use: No Hx Substance Use: No Preferred Language: Nigerian Communication Ability: Effective Visual Impairment: No Limitations Hearing Ability: Normal Technician Telecommunication Systems Required: No Beliefs That Will Affect Care: None marital status: Single Current Living Situation: Alone Current Living Situation Comment: At home alone Other Information That Helps Us Care for You: No Feels Safe at Home: Yes Safety Concerns: Feels Safe At This Time Assistive Devices: Glasses Review of Systems +Dysarthria, resolved Physical Exam Neurological Examination: Mental Status: Awake and alert. Oriented to person, place, and time. Fluent. Comprehension intact. Affect appropriate. Cranial Nerves: II: Reads NIHSS cards, pupils 3/3 to 2/2, III/IV/: Versions intact without nystagmus, no gaze preference. V: Facial sensation symmetric to light touch VII: Facial expression symmetric VIII: Hearing intact to voice Motor: Strength was symmetric and antigravity throughout. Pronator drift was absent. There were no abnormal movements. Reflexes: Unable to assess over telemedicine Results & Data Vital Signs (Past 12 Hours) Vital Signs Temp Pulse Pulse Resp BP BP Pulse Ox 05/08/24 16:44 56 L 05/08/24 16:43 56 L 05/08/24 15:06 36.7 C 60 17 143/72 H 97 05/08/24 14:33 36.7 C 60 18 143/72 H 97 05/08/24 13:00 45 L 14 126/70 97 05/08/24 12:16 54 L 16 117/64 100 05/08/24 11:09 55 L 12 104/54 L 98 05/08/24 09:48 59 L 05/08/24 09:12 36.0 C L 61 20 79/43 L 100 O2 Del Method 05/08/24 16:44 05/08/24 16:43 05/08/24 15:06 Room Air 05/08/24 14:33 Room Air 05/08/24 13:00 Room Air 05/08/24 12:16 Room Air 05/08/24 11:09 Room Air 05/08/24 09:48 05/08/24 09:12 Diagnostic Findings MRI brain - Unremarkable
[2024-05-08] MEDS: TOPIRAMATE 25 MG TAB PO SCH (21:34)
[2024-05-08] MEDS: MoRPHine SULFATE CR 15 MG TABCR PO SCH (21:34)
[2024-05-08] MEDS: AMITRIPTYLINE HCL 25 MG TAB PO SCH (21:35)
[2024-05-08] MEDS: tiZANidine HCL 4 MG TABLET PO PRN (21:35)
[2024-05-08] MEDS: HYDROCORTISONE 10 MG TAB PO SCH (21:36)
[2024-05-08] MEDS: FLUTICASONE PROPIONATE NA SPR 16 GM BTL NAE SCH (21:36)
[2024-05-08] MEDS: ACETAMINOPHEN 500 MG TAB PO SCH (21:37)
[2024-05-08] MEDS: GABAPENTIN 100 MG CAP PO SCH (21:38)
[2024-05-09] MEDS: LEVOTHYROXINE SODIUM 125 MCG TABLET PO SCH (05:14)
[2024-05-09 07:17] LABS: Hematocrit (blood only) 38.5 % (42.0-52.0); Hemoglobin 12.9 g/dl (14.0-18.0); Mean Corpuscular Hemoglobin 29.1 pg (25.0-34.0); Mean Corpuscular Hgb Conc 33.5 g/dL (32.0-36.0); Mean Corpuscular Volume 86.7 fL (80.0-100.0); Platelet Count 248 K/uL (130-400); RDW Coefficient of Variation 11.5 % (11.5-14.5); RDW Standard Deviation 36.7 fL (36.4-46.3); Red Blood Count 4.44 M/uL (4.70-6.10); White Blood Count 6.54 K/ul (4.8-10.8)
[2024-05-09 07:24] LABS: BUN Creatinine Ratio 22.3 (10-20); Calcium 8.2 mg/dl (8.6-10.3); Chol HDL Ratio 3.5 (0-5); Creatinine Clr Calc Pharmacy 75.2 ml/min; Est GFR (African American) 96.2 ml/min
[2024-05-09] MEDS: ATORVASTATIN 40 MG TAB PO SCH (08:28)
[2024-05-09] MEDS: amLODIPine BESYLATE 5 MG TAB PO SCH (08:28)
[2024-05-09] MEDS: POLYETHYLENE (MIRALAX) 17 GM PACK PO SCH (08:29)
[2024-05-09] MEDS: PSYLLIUM or GUAR GUM FIBER 4GM PACKET PO SCH (08:29)
[2024-05-09 08:42] LABS: Estimated Average Glucose 120 mg/dl; Hemoglobin A1C 5.8 % (4.5-5.6)
[2024-05-09] MEDS ORDERED: CAFFEINE 200 MG PO SCH (09:00)
[2024-05-09] MEDS: CLOPIDOGREL BISULFATE 75 MG TAB PO SCH (09:29)
[2024-05-09] MEDS: oxyCODONE/ACETAMINOPHEN 10-325 TAB PO PRN (11:26)
--- NOTE | 2024-05-09 19:09 | Hospitalist Progress Note ---
Date of Service May 09, 2024 delayed entry date of service noted above Assessment & Plan (1) Stroke-like symptoms: (2) History of TIA (transient ischemic attack): (3) Hypertension: (4) Hyperlipidemia: (5) Anxiety: (6) Hypothyroidism: (7) GERD (gastroesophageal reflux disease): (8) BPH (benign prostatic hyperplasia): (9) Chronic neck pain: (10) Chronic steroid use: (11) Tremor of both hands: (12) Prediabetes: Plan per previous attending notes with addendum: This is a 68yo M with a PMH of history of TIAs, HTN, HLD, Pituitary Macroadenoma s/p resection on chronic steroid therapy and resultant central hypothyroidism, hypogonadotropic hypogonadism, prediabetes, Raynauds, BPH, diverticulosis, chronic Pain syndrome, post Laminectomy syndrome on narcotics, essential tremor and anxiety who presents with stroke like symptoms since this morning. Stroke like symptoms Likely secondary to dehydration, GREYSON, polypharmacy Acute CVA ruled out History of TIAs Acute kidney failure likely contributory to stroke like symptoms Woke up at 0730 with difficulty opening eyes, clumsy gait - resolved by 9 AM but still with ? mild dysarthric speech CT head without acute intracranial abnormalities CTA head/neck not performed due to GREYSON Brain MRI: No acute process Evaluated by [facility] neurologist Dr. Lea. "Patient presents with symptoms consistent with polypharmacy in the setting of dehydration and GREYSON. MRI is negative and symptoms were not overall consistent with stroke in this context. No further stroke workup recommended. Patient can be discharged from our perspective, on his home plavix and lipitor regimen. Medication adjustments defer to medicine team and PCP. " Patient's symptoms resolved Medication changes recommended upon discharge: Decrease gabapentin to 200 mg 3 times daily from 400 mg Limit Percocet to twice a day Patient prefers to maintain other medication doses to manage his chronic pain and mood Further medications changes per PCP on follow-up visit in 1 week GREYSON on CKD Cr 1.96 on admission (baseline ~1.1) No new medications Given NSS x 2 L in ED Resolved History of pituitary macroadenoma S/p resection with resultant panhypopituitarism, central hypothyroidism hypogonadotropic hypogonadism Given missed AM dose of hydrocortisone BP improved with IV fluids but consider stress dosing if becomes hypotensive again Continue cabergoline twice weekly Follows with resort keeper Dr. Debbi Johns Avoid pred given history of duodenal perf HTN Advised to decrease amlodipine to 2.5 mg p.o. daily, discontinue lisinopril to prevent hypotension Monitor BP as an outpatient Chronic pain syndrome Post Laminectomy syndrome On chronic Morphine Sulfate ER 30mg bid, Percocet 10-325 q4h prn, gabapentin, amitriptyline, topiramate Recommend to decrease dose of gabapentin, and Percocet Prediabetes A1c 5.9 in May 2023 Hold metformin Monitor accuchecks for now, will hold on coverage unless consistently elevated Essential Tremor Patient noted to be bradycardic in the 40s to 50s Decrease propranolol from 10, to 5 mg 4 times daily Monitor heart rate as an outpatient on follow-up visit with PCP DVT Ppx: SQ heparin Code status: DNR/DNI per discussion with patient PCP: Briseyda Dispo: Discharged home PCP follow-up in 1 week Admission and Anticipated Discharge Date Admission Date: May 08, 2024 Subjective Follow-up for strokelike symptoms, etc. Seen resting in bed with patient's brother at the bedside States he feels much better overall, back to his baseline Patient's brother agrees Denies weakness, numbness Or any other focal neurologic symptoms States he is ready and would like to be discharged today Review of Systems Review of Systems: all noted and negative except for above Physical Exam Physical Exam: General- oriented x 3, not in distress, speaks in sentences with no effort or accessory muscle use Eyes- anicteric Neck- no JVD Lungs- clear breath sounds bilaterally, no rales/wheezes Heart- normal rate, regular rhythm; no murmurs Abdomen- normal bowel sounds, nondistended, soft, nontender Extremities- no pretibial edema, no calf tenderness Neuro- alert, oriented x 3; no gross focal neurologic deficits Skin- warm & dry Results & Data Results & Data Vital Signs (Past 12 Hours) Vital Signs Temp Pulse Pulse Resp BP Pulse Ox O2 Del Method 05/09/24 18:07 78 05/09/24 17:32 36.7 C 88 18 117/59 L 97 05/09/24 11:00 36.7 C 88 18 117/59 L 97 Room Air 05/09/24 09:07 49 L 05/09/24 07:30 36.8 C 74 16 125/68 96 Room Air all noted and reviewed including below
--- NOTE | 2024-05-10 18:03 | Discharge Summary ---
Discharge Summary Date of Service May 10, 2024 delayed entry date of service May 09, 2024 Principal Dx & Hospital Course #1 = Principal Diagnosis (1) Stroke-like symptoms: (2) History of TIA (transient ischemic attack): (3) Hypertension: (4) Hyperlipidemia: (5) Anxiety: (6) Hypothyroidism: (7) GERD (gastroesophageal reflux disease): (8) BPH (benign prostatic hyperplasia): (9) Chronic neck pain: (10) Chronic steroid use: (11) Tremor of both hands: (12) Prediabetes: Plan per previous attending notes with addendum: This is a 68yo M with a PMH of history of TIAs, HTN, HLD, Pituitary Macroadenoma s/p resection on chronic steroid therapy and resultant central hypothyroidism, hypogonadotropic hypogonadism, prediabetes, Raynauds, BPH, diverticulosis, chronic Pain syndrome, post Laminectomy syndrome on narcotics, e ssential tremor and anxiety who presents with stroke like symptoms since this morning. Stroke like symptoms Likely secondary to dehydration, GREYSON, polypharmacy Acute CVA ruled out History of TIAs Acute kidney failure likely contributory to stroke like symptoms Woke up at 0730 with difficulty opening eyes, clumsy gait - resolved by 9 AM but still with ? mild dysarthric speech CT head without acute intracranial abnormalities CTA head/neck not performed due to GREYSON Brain MRI: No acute process Evaluated by [facility] neurologist Dr. Lea. "Patient presents with symptoms consistent with polypharmacy in the setting of dehydration and GREYSON. MRI is negative and symptoms were not overall consistent with stroke in this context. No further stroke workup recommended. Patient can be discharged from our perspective, on his home plavix and lipitor regimen. Medication adjustments defer to medicine team and PCP. " Patient's symptoms resolved Medication changes recommended upon discharge: Decrease gabapentin to 200 mg 3 times daily from 400 mg Limit Percocet to twice a day Patient prefers to maintain other medication doses to manage his chronic pain and mood Further medications changes per PCP on follow-up visit in 1 week GREYSON on CKD Cr 1.96 on admission (baseline ~1.1) No new medications Given NSS x 2 L in ED Resolved History of pituitary macroadenoma S/p resection with resultant panhypopituitarism, central hypothyroidism hypogonadotropic hypogonadism Given missed AM dose of hydrocortisone BP improved with IV fluids but consider stress dosing if becomes hypotensive again Continue cabergoline twice weekly Follows with vice president of sales Dr. Debbi Johns Avoid pred given history of duodenal perf HTN Advised to decrease amlodipine to 2.5 mg p.o. daily, discontinue lisinopril to prevent hypotension Monitor BP as an outpatient Chronic pain syndrome Post Laminectomy syndrome On chronic Morphine Sulfate ER 30mg bid, Percocet 10-325 q4h prn, gabapentin, amitriptyline, topiramate Recommend to decrease dose of gabapentin, and Percocet Prediabetes A1c 5.9 in May 2023 Hold metformin Monitor accuchecks for now, will hold on coverage unless consistently elevated Essential Tremor Patient noted to be bradycardic in the 40s to 50s Decrease propranolol from 10, to 5 mg 4 times daily Monitor heart rate as an outpatient on follow-up visit with PCP DVT Ppx: SQ heparin Code status: DNR/DNI per discussion with patient PCP: Briseyda Dispo: Discharged home PCP follow-up in 1 week Notes For Next Care Provider Medication Changes From Visit Decrease amlodipine from 5 mg to 2.5 mg daily. Stop lisinopril. -To prevent low blood pressure Decrease propranolol from 10 mg to 5 mg 4 times a day. -To prevent low heart rate Reduce gabapentin from 400 to 200 mg 3 times a day Reduce Percocet from 4 times a day to twice a day as needed -To prevent strokelike symptoms Admission HPI Per Admitting Provider This is a 68yo M with a PMH of history of TIAs, HTN, HLD, Pituitary Macroadenoma s/p resection on chronic steroid therapy and resultant central hypothyroidism, hypogonadotropic hypogonadism, prediabetes, Raynauds, BPH, diverticulosis, chronic Pain syndrome, post Laminectomy syndrome on narcotics, essential tremor and anxiety who presents with stroke like symptoms since this morning. Woke up around 0730 with difficulty fully opening his eyes and felt like he was stumbling when walking. Was waiting for brother to arrive and by 9AM symptoms had gone away. Symptoms felt similar to previous TIAs. Brother noted he was slurring his speech as well. No focal weakness in extremities. No di fficulty swallowing. States he has been taking his atorvastatin and Plavix as scheduled, along with other medications. Take long acting Morphine and PRN Percocet for chronic neck pain. Also on gabapentin, TCA and Topamax at night. Denies any medication changes recently. Denies recent infection. No fever, chills, chest pain, shortness of breath, nausea, vomiting, abdominal pain, dysuria or diarrhea. Ongoing struggle with constipation due to narcotic use. Denies any change to p.o. intake. Admission Exam Per Admitting Provider General Appearance: WD/WN, vitals as above, NAD, sitting up in bed, pleasant, conversing easily Head: normocephalic, atraumatic Eyes: normal inspection, PERRL, conjunctivae normal, anicteric sclerae ENT: external ear and nose normal, oropharynx normal Neck: normal visual inspection, trachea midline, no thyromegaly Respiratory: normal respiratory effort, lungs clear to auscultation, no wheeze, rales, rhonchi. No accessory muscle use Cardiovascular: bradycardic rate,regular rhythm, normal peripheral pulses, no BLE edema. Vessels: no JVD Chest: normal inspection of chest Abdomen/GI: normal bowel sounds, soft, nontender, no hepatosplenomegaly Extremities/Musculoskeletal: no cyanosis or clubbing, extremities motor strength 5/5 Neurologic: PERRL, EOMI, accommodation nl, no face palsy, + intermittent slurred speech noted, CN's II-XI intact bilaterally and moves all extremities Psychiatric: A+Ox3, euthymic affect Skin: no rashes, normal color, warm/dry Discharge Exam General- oriented x 3, not in distress, speaks in sentences with no effort or accessory muscle use Eyes- anicteric Neck- no JVD Lungs- clear breath sounds bilaterally, no rales/wheezes Heart- normal rate, regular rhythm; no murmurs Abdomen- normal bowel sounds, nondistended, soft, nontender Extremities- no pretibial edema, no calf tenderness Neuro- alert, oriented x 3; no gross focal neurologic deficits Skin- warm & dry Updated Medication List Medication Instructions Recorded Confirmed Type amitriptyline 75 mg tablet 37.5 mg PO HS 08/16/18 05/08/24 History morphine 30 mg tablet,extended 30 mg PO BID 08/16/18 05/08/24 History release oxycodone-acetaminophen 10 mg-325 1 tab PO Q4 PRN Pain 08/16/18 05/08/24 History mg tablet (Percocet) promethazine 25 mg tablet 25 mg PO Q6H PRN Nausea 08/16/18 05/08/24 History atorvastatin 80 mg tablet 80 mg PO QAM 09/12/18 05/08/24 History clopidogrel 75 mg tablet 75 mg PO QAM 09/12/18 05/08/24 History tizanidine 4 mg tablet 8 mg PO TID PRN Pain 09/12/18 05/08/24 History gabapentin 400 mg capsule 400 mg PO TID 09/19/18 05/08/24 History metformin 500 mg tablet 500 mg PO QAM 12/25/18 05/08/24 History azelastine 137 mcg (0.1 %) nasal 2 spray intranasal BID PRN Nasal 03/31/19 05/08/24 History spray Congestion topiramate 25 mg tablet 75 mg PO HS 04/06/19 05/08/24 History bupropion HCl 150 mg 24 hr tablet, 150 mg PO QAM 09/15/21 05/08/24 History extended release caffeine 200 mg tablet 200 mg PO DAILY Headache 10/22/21 05/08/24 History polyethylene glycol 3350 17 17 g PO DAILY 02/15/23 05/08/24 History gram/dose oral powder (Miralax) levothyroxine 125 mcg tablet 125 mcg PO DAILY@0630 06/08/23 05/08/24 History acetaminophen 500 mg tablet 1,000 mg PO HS 04/19/24 05/08/24 History (Tylenol Extra Strength) dicyclomine 10 mg capsule 10 mg PO BID PRN ABD CRAMPING 04/19/24 05/08/24 History fluticasone propionate 50 2 spray intranasal BID 04/19/24 05/08/24 History mcg/actuation nasal spray,suspension hydrocortisone 10 mg tablet 10 mg PO BID 04/19/24 05/08/24 History ipratropium bromide 21 mcg (0.03 2 spray intranasal BID PRN 04/19/24 05/08/24 History %) nasal spray Congestion simethicone 62.5 mg oral strips 1 strip PO DIRECTED PRN 04/19/24 05/08/24 History (Gas-X) GAS/BLOATING triamcinolone acetonide 0.1 % 1 applic topical BID PRN Skin 04/19/24 05/08/24 History topical cream Irritation ketoconazole 2 % shampoo 1 applic topical DIRECTED 05/08/24 05/08/24 History amlodipine 5 mg tablet (Norvasc) 2.5 mg (1/2 x 5 mg) PO QAM 30 days 05/09/24 Rx #15 tabs cabergoline 0.5 mg tablet 0.25 mg PO UD 05/09/24 05/09/24 History gabapentin 100 mg capsule 200 mg (2 x 100 mg) PO TID 30 days 05/09/24 Rx #90 caps propranolol 10 mg tablet 5 mg (1/2 x 10 mg) PO QID 30 days 05/09/24 Rx #60 tabs Hospital Stay Data Consultations 05/08/24 12:00 ED Decision to Admit Stat 05/08/24 13:16 Consult Neurology Routine Diagnostic Imagining Performed Laboratory Results WBC 6.54 K/ul (4.8-10.8) 05/09/24 06:27 RBC 4.44 M/uL (4.70-6.10) L 05/09/24 06:27 Hgb 12.9 g/dl (14.0-18.0) L 05/09/24 06:27 Hct 38.5 % (42.0-52.0) L 05/09/24 06:27 MCV 86.7 fL (80.0-100.0) 05/09/24 06:27 MCH 29.1 pg (25.0-34.0) 05/09/24 06:27 MCHC 33.5 g/dL (32.0-36.0) 05/09/24 06:27 RDW Std Deviation 36.7 fL (36.4-46.3) 05/09/24 06:27 RDW Coeff of Neida 11.5 % (11.5-14.5) 05/09/24 06:27 Plt Count 248 K/uL (130-400) 05/09/24 06:27 MPV 9.0 fL (9.4-12.4) L 05/09/24 06:27 Immature Gran % (Auto) 0.3 % 05/08/24 09:25 Neut % (Auto) 62.7 % 05/08/24 09:25 Lymph % (Auto) 25.5 % 05/08/24 09:25 [place] % (Auto) 8.4 % 05/08/24 09:25 Eos % (Auto) 2.3 % 05/08/24 09:25 Baso % (Auto) 0.8 % 05/08/24 09:25 Neut # (Auto) 6.16 K/uL (1.40-6.50) 05/08/24 09:25 Lymph # (Auto) 2.50 K/uL (1.20-3.40) 05/08/24 09:25 [place] # (Auto) 0.82 K/uL (0.11-0.59) H 05/08/24 09:25 Eos # (Auto) 0.23 K/uL (0.00-0.50) 05/08/24 09:25 Baso # (Auto) 0.08 K/uL (0.00-0.20) 05/08/24 09:25 Immature Gran # (Auto) 0.03 K/uL (0.01-0.20) 05/08/24 09:25 PT 10.5 Seconds (9.0-12.0) 05/08/24 09:25 INR 1.0 (0.9-1.1) 05/08/24 09:25 APTT 27 Seconds (21-31) 05/08/24 09:25 PTT Ratio 1.0 05/08/24 09:25 Sodium 142 mmol/L (136-145) 05/09/24 06:27 Potassium 4.0 mmol/L (3.5-5.1) 05/09/24 06:27 Chloride 115 mmol/L (98-107) H 05/09/24 06:27 Carbon Dioxide 21 mmol/L (21-32) 05/09/24 06:27 Anion Gap 6 (3-11) 05/09/24 06:27 BUN 21 mg/dl (6-23) 05/09/24 06:27 Creatinine 0.94 mg/dl (0.6-1.4) D 05/09/24 06:27 Est Cr Clr Drug Dosing 75.2 ml/min 05/09/24 06:27 Est GFR ( Amer) 96.2 ml/min 05/09/24 06:27 Est GFR (Non-Af Amer) 83.0 ml/min 05/09/24 06:27 BUN/Creatinine Ratio 22.3 (10-20) H 05/09/24 06:27 Glucose 92 mg/dl (70-99(Fasting)) 05/09/24 06:27 POC Glucose 116 mg/dl (70-99) H 05/08/24 09:22 Estimat Average Glucose 120 mg/dl 05/09/24 06:27 Hemoglobin A1c 5.8 % (4.5-5.6) H 05/09/24 06:27 Calcium 8.2 mg/dl (8.6-10.3) L 05/09/24 06:27 Magnesium 2.2 mg/dl (1.7-2.4) 05/08/24 09:25 Total Bilirubin 0.4 mg/dl (0.2-1.0) 05/08/24 09:25 AST 16 U/L (13-39) 05/08/24 09:25 ALT 9 U/L (7-52) 05/08/24 09:25 Alkaline Phosphatase 110 U/L (34-104) H 05/08/24 09:25 Troponin I High Sens 3.5 pg/ml (0-20) 05/08/24 09:25 Total Protein 6.2 gm/dl (6.0-8.3) 05/08/24 09:25 Albumin 4.0 gm/dl (3.4-5.0) 05/08/24 09:25 Globulin 2.2 gm/dl (2.5-4.0) L 05/08/24 09:25 Albumin/Globulin Ratio 1.8 (0.9-2) 05/08/24 09:25 Triglycerides 209 mg/dl (0-150) H 05/09/24 06:27 Cholesterol 122 mg/dl (0-200) 05/09/24 06:27 LDL Cholesterol, Calc 45 mg/dl 05/09/24 06:27 VLDL Cholesterol, Calc 42 mg/dl (0-30) H 05/09/24 06:27 HDL Cholesterol 35 mg/dl 05/09/24 06:27 Cholesterol/HDL Ratio 3.5 (0-5) 05/09/24 06:[address] 05/08/24 09:36 CT OF THE HEAD WITHOUT CONTRAST CLINICAL HISTORY: neuro deficit, acute stroke suspected COMPARISON STUDY: MRI of the brain June 26, 2018. Head CT March 31, 2019. CT DOSE: 547.75 mGy.cm TECHNIQUE: Helical axial images of the head were obtained without IV contrast. Automated exposure control was utilized for the study. A dose lowering technique was utilized adhering to the principles of ALARA. FINDINGS: No acute intracranial hemorrhage, midline shift or mass effect is present. The ventricular system is unremarkable. The basal cisterns are patent. No extra-axial collections are present. There are no findings to suggest acute dural sinus thrombosis or acute territorial infarct. There are postoperative findings within the sinuses. Left maxillary sinus mucosal thickening is present. There is also mucosal thickening within the ethmoid and right sphenoid sinuses. IMPRESSION: No acute intracranial findings. ACT 112: Negative or not required by law. Electronically signed by: John Woodson M.D. 05/08/2024 11:19 AM Brain MRI 05/08/24 12:00 MRI OF THE BRAIN WITHOUT CONTRAST CLINICAL HISTORY: TIA symptoms COMPARISON STUDY: MRI of the brain June 26, 2018. Head CT performed earlier today. TECHNIQUE: Utilizing a 1.5 Angie magnet and dedicated coil, multiplanar, multiecho imaging of the brain was performed without IV contrast. FINDINGS: This exam is mildly compromised by motion artifact. There are no foci of restricted diffusion to suggest acute infarct. No acute intracranial hemorrhage, midline shift or mass effect is present. Ventricular system is unremarkable. Basal cisterns are patent. Flow-voids for the major intracranial vessels are present. No intracranial masses identified on unenhanced exam. There is extensive mucosal thickening of the maxillary sinuses, left greater than r ight. There is mild ethmoid sinus mucosal thickening. IMPRESSION: 1. No acute intracranial findings. 2. Paranasal sinus opacification, as above. ACT 112: Negative or not required by law. Electronically signed by: John Woodson M.D. 05/08/2024 6:34 PM KUB X-Ray 05/08/24 13:12 KUB CLINICAL HISTORY: GREYSON, chronic constipation COMPARISON STUDY: CT of the abdomen and pelvis June 08, 2023. FINDINGS: The bowel gas pattern is normal. There is a moderate to large amount of stool within the colon. There is a small amount of stool within the rectum. Pelvic calcifications favor phleboliths. Metallic clip within the right upper quadrant is incidentally noted. No evidence for free air on supine exam. IMPRESSION: 1. No evidence for a bowel obstruction. 2. Moderate to large amount of stool within the colon. ACT 112: Negative or not required by law. Electronically signed by: John Woodson M.D. 05/08/2024 6:36 PM 05/08/24 09:36 CT head/brain wo con Stat 05/08/24 12:00 MR brain wo con Stat Pending Results Patient Have Any Pending Studies at Discharge: No Discharge Instructions Given to Patient (Per Discharging Provider) PLEASE ENSURE TO TAKE YOUR MEDICATIONS CAREFULLY DIRECTED. Medication changes: Decrease amlodipine from 5 mg to 2.5 mg daily. Stop lisinopril. -To prevent low blood pressure Decrease propranolol from 10 mg to 5 mg 4 times a day. -To prevent low heart rate Reduce gabapentin from 400 to 200 mg 3 times a day Reduce Percocet from 4 times a day to twice a day as needed -To prevent strokelike symptoms STAY WELL HYDRATED. DRINK 6-8 GLASSES OF WATER PER DAY. DO NOT TAKE MEDICATIONS UNDER THE CLASS OF NSAIDS SUCH : IBUPROFEN, NAPROXEN, ETC. DO NO TAKE ANY NEW MEDICATION WITHOUT DISCUSSING WITH YOUR PRIMARY CARE PHYSICIAN FIRST. PLEASE CALL YOUR PRIMARY CARE PHYSICIAN OR RETURN TO THE ER IF WITH WORSENING OF SYMPTOMS, INCLUDING CONFUSION, WEAKNESS, ETC FOLLOW UP WITH PRIMARY CARE PHYSICIAN OUTLINED ABOVE. Who to Call and When: Medical Emergencies: Call 911 immediately if you experience any of the following warning signs and symptoms of Stroke: Sudden numbness or weakness of the face, arm or leg, especially on one side of the body Sudden confusion, trouble speaking or understanding Sudden trouble seeing in one or both eyes Sudden trouble walking, dizziness, loss of balance or coordination Sudden severe headache with no cause Do not delay calling 911 if you experience any warning signs or symptoms of a stroke. Delay in seeking medical attention may affect what treatments can be given to you. Risk Factors for Stroke: You can reduce your chances of stroke by working with your medical provider to adopt a healthy lifestyle. Some specific ways to lower your chance of stroke are: If you are a smoker, now is the time to stop smoking cigarettes If you are diabetic, improve the control of your blood sugars Avoid excessive amounts of alcohol Control high blood pressure Lose weight if you are overweight Be sure to lead an active lifestyle Eat a healthy diet low in salt, cholesterol and fat You should know about other risk factors for stroke that you are unable to control. These include: Age 55 years or older Male gender Certain racial groups: , or / Family History of Stroke, Mini stroke or Heart Attack Sickle Cell Disease Follow Up: It is important for you to keep your follow up appointments with your medical provider. Total Time Total Time Spent Total Time Spent (In Minutes): 60 minutes
== END 2024-05-09 18:07 | disposition home or self-care (01) ==
LOC: ED 09:09 → SUATTDRO 11:51 → INTOOBSV 11:51 → 2S 11:51